=== PATIENT | male | born 1960 | race Caucasian/White ===

== ENCOUNTER 2025-08-10 09:32 | Inpatient (IN) | payer OTHER, SELFPAY ==
--- NOTE | ~2025-08-10 | XR_ITS ---
EXAMINATION: XR CHEST CLINICAL INFORMATION: NGT placement confirmation COMPARISON: None available. TECHNIQUE: Frontal view of the lower chest and upper abdomen.. FINDINGS: NG tube present, with the tip projected in the expected region of the stomach. No abnormal dilated bowel loops identified in the partially imaged abdomen. No gross pneumoperitoneum. Left basilar hazy opacities could reflect atelectasis. XR/XR chest 1V IMPRESSION: NG tube present, tip projected in the expected region of the stomach. Electronically signed by: Bin German MD 08/13/2025 09:31 AM EDT
--- NOTE | ~2025-08-10 | CT_ITS ---
EXAMINATION: CT ABDOMEN PELVIS WITH IV CONTRAST HISTORY: f/u perforated diverticulitis COMPARISON: Comparison is made with the prior examination dated 08/10/2025. TECHNIQUE: CT scan of the abdomen and pelvis was performed following administration of 85 mL Omnipaque 350 using standard departmental protocol. Coronal and sagittal reformatted images were generated and reviewed. Oral contrast material was not administered at the request of the referring physician. This CT exam was performed with one or more of the following dose reduction techniques: automated exposure control, adjustment of the mA and/or kV according to patient size, use of iterative reconstruction technique. DLP: 621 mGy-cm FINDINGS: LOWER CHEST: There is subsegmental atelectasis at both lung bases. There is no pleural effusion. CARDIOVASCULATURE: The heart is normal in size. There is no pericardial effusion. LIVER: The liver is normal in size and contour. No liver mass is identified. The hepatic and portal veins are patent. GALLBLADDER / BILE DUCTS: There is vicarious excretion of contrast material via the gallbladder. There is no intra or extrahepatic biliary ductal dilatation. SPLEEN: The spleen is normal in size. No focal splenic lesion is identified. PANCREAS: The pancreas is unremarkable in appearance. ADRENAL GLANDS: Within normal limits. KIDNEYS/RETROPERITONEUM: No renal calculi are identified. There is no hydronephrosis. No renal masses are identified. LYMPH NODES: No abdominal or pelvic lymphadenopathy. VASCULATURE: The abdominal aorta is normal in caliber. MESENTERY/PERITONEUM: There is a small amount of free fluid in the left paracolic gutter and in the pelvis. Again seen are scattered foci of free intraperitoneal gas in the upper abdomen as well as extraluminal gas in the left lower quadrant. STOMACH: The stomach is unremarkable. SMALL BOWEL: Again seen are numerous dilated fluid-filled loops of proximal and mid small bowel, consistent with obstruction. COLON: Again seen is an inflammatory process in the left lower quadrant adjacent to the descending colon. Findings likely represent perforated diverticulitis. There is a 2.0 x 2.0 x 1.8 cm fluid collection in this region, similar to the prior study (series 3, images 54-57). APPENDIX: Normal. URINARY BLADDER/PELVIC ORGANS: The urinary bladder is unremarkable. The prostate is normal in size. BONES / SOFT TISSUES: No suspicious bony or soft tissue abnormalities. CT/CT abdomen pelvis w IV con IMPRESSION: Again seen are findings of perforated diverticulitis of the descending colon with free intraperitoneal gas. 2.0 cm adjacent fluid collection without significant change. Findings of small bowel obstruction are also unchanged. Electronically signed by: Alden Ibrahim MD 08/11/2025 11:30 AM EDT
--- NOTE | ~2025-08-10 | CT_ITS ---
CLINICAL HISTORY: SBO, diverticulitis, fever CT abdomen and pelvis without IV or oral contrast Comparison: CT/REG/SR - CT ABDOMEN PELVIS WITH IV CONTRAST - 08/11/25 11:[address]/SR - ABDOMEN ABD_PELVIS_IV_CONTRAST (ADULT) - 08/10/25 11:10 EDT Findings: Lung bases show no active disease. No dependent layering pleural effusions. The heart is not enlarged. Enteric tube tip body of stomach No stones are identified in the kidneys, ureters or bladder. There is no hydronephrosis or perinephric stranding/fluid. Evaluation of the liver, spleen, adrenal glands and pancreas demonstrates no lesions. It should be noted that isodense masses may be obscured in the absence of intravenous contrast. Vicarious excretion via of the gallbladder. Normal appendix. No pathologically enlarged lymph nodes . Trace ascites demonstrated. Improved pneumoperitoneum. Inflammatory process descending colon with diverticuli. Extraluminal collection of air and gas left mid abdomen measuring 2.6 cm previously measuring 2 cm possible developing abscess. Minimal improvement in the distal small bowel obstructive pattern. Normal appendix. No vertebral body compression fractures or spondylolisthesis. No bony destructive lesions. Impression: 1. Minimal improvement in the small volume pneumoperitoneum. 2.6 cm probable abscess within the peritoneal cavity left mid abdomen axial image 54. This previously measured 2.[address] oral Gastrografin would be helpful to exclude any fistulous component. There is inflammatory changes of the descending colon with diverticuli consider acute diverticulitis. Minimal improvement in the distal small bowel obstructive pattern. 2. Stable ancillary findings This document has been electronically signed by: Praful Choe MD on 08/16/2025 10:36:39
--- NOTE | ~2025-08-10 | CT_ITS ---
CLINICAL HISTORY: abdo pain, tenderness, high WBC CT abdomen and pelvis with contrast Comparison: None provided Findings: The heart is not enlarged. Mild aortic annular calcifications. Mild calcific atherosclerosis. Lung bases are clear other than subsegmental atelectasis. A left renal inferior pole subcentimeter hypodensity is too small to characterize. The gallbladder and other abdominal solid organs are unremarkable. Duodenal diverticulum. Multiple loops of small bowel are dilated up to 3.1 cm with multiple air-fluid levels. Probable transition point within the left abdomen near axial series 3 image 46 with associated small bowel mural thickening. Within the adjacent left abdomen, there is prominent fat stranding and a small amount of fluid without definite wall to suggest abscess. Scattered foci of pneumoperitoneum throughout the abdomen. The inflammatory changes extend posteriorly to the descending colon, where diverticular disease is present. Normal appendix. Pelvic structures unremarkable. Mild degenerative change of the spine and hips. IMPRESSION: Pneumoperitoneum, compatible with bowel perforation. Small bowel obstruction with probable transition point in the left abdomen where there is prominent inflammatory change and a small amount of free fluid without definite abscess. The inflammatory changes extend posteriorly to the descending colon where diverticular disease is present. This document has been electronically signed by: Geoffrey Shaikh DO on 08/10/2025 12:59:34
[2025-08-10 09:34] VITALS: BP 175/91; PULSE 100; RESP 18; TEMP 36.8; O2SAT 95; BMI 36.5
[2025-08-10 09:49] LABS: MANUAL DIFF FLAG NO
[2025-08-10 09:51] LABS: Hematocrit 51.9 % (42.0-52.0); Hemoglobin 17.4 g/dl (14.0-18.0); Imm Gran Abs Auto 0.09 X10*3/uL (0.00-0.03); Imm Gran Pct Auto 0.5 % (0.0-0.4); Lymphocytes Absolute Auto 1.6 X10*3/uL (1.2-4.9); Mean Corpuscular HGB Conc 33.5 g/dl (31.0-36.0); Mean Corpuscular Hemoglobin 29.7 pg (27.0-33.0); Mean Corpuscular Volume 88.6 fL (80.0-98.0); NRBC Abs Auto 0.000 X10*3/uL (0.0-0.012); NRBC Pct Auto 0.0 /100WBC (0.0-0.2); Red Blood Count 5.86 X10*6/uL (4.60-5.80); White Blood Count 17.1 X10*3/uL (4.8-10.8)
[2025-08-10 10:04] LABS: Alanine Aminotransferase 48 U/L (0-40); Albumin Level 4.3 g/dL (3.5-5.0); Alkaline Phosphatase 85 U/L (39-117); Anion Gap 15 (12-20); Aspartate Amino Transferase 30 U/L (5-37); Blood Urea Nitrogen 56 mg/dL (9-16); Calcium 9.3 mg/dL (8.4-10.2); Carbon Dioxide 23 mmol/L (22-29); Chloride 101 mmol/L (96-108); Creatinine Clr Calc Pharmacy 44.4; Estimated Glomerular Filt Rate 33; Lipase 27 U/L (8-78); Potassium 4.6 mmol/L (3.3-5.1); Sodium 134 mmol/L (135-145); Total Protein 7.8 g/dL (6.5-8.0)
--- NOTE | 2025-08-10 10:09 | ED.GENADULT ---
HPI - General Adult General Chief complaint: Abdominal Pain Stated complaint: abd pain Time Seen by Provider: 08/10/25 10:09 History of Present Illness ED Provider: Addison CARROLL narrative: The patient is a 64-year-old male with a history of the antiphospholipid syndrome on warfarin and who also has a history of a chronic wound on his left calf attributed to pyoderma gangrenosum. He has been having a lot of pain in the wound in his left calf for a long time. He has been using nonsteroidal anti-inflammatories for the pain despite being on warfarin. Over the last 2 days he has had worsening abdominal pain. Pain began yesterday morning across his lower abdomen and has gotten worse since yesterday morning. He feels the pain is moving up his abdomen. The pain does not lateralized. It is associated with nausea but no vomiting. He has not had a bowel movement since the day before his pain began. He thought that perhaps his pain was secondary to constipation and so yesterday he took MiraLax and Senokot and Dulcolax with no bowel movements. Related Data Allergies Allergy/AdvReac Type Severity Reaction Status Date / Time bacitracin Allergy Unknown Verified 08/10/25 09:38 celecoxib (From Celebrex) Allergy Unknown Verified 08/10/25 09:38 cephalexin (From Keflex) Allergy Unknown Verified 08/10/25 09:38 sulfacetamide (From Allergy Unknown Verified 08/10/25 09:38 Sulfamide) sulfamethoxazole (From Allergy Unknown Verified 08/10/25 09:38 Bactrim) trimethoprim (From Bactrim) Allergy Unknown Verified 08/10/25 09:38 Review of Systems Review of Systems: Yes all other systems are reviewed and are negative [facility] Past Medical History Medical History (Updated 08/10/25 @ 14:35 by Gallito Razo MD) Antiphospholipid syndrome Pyoderma gangrenosum Social History Social History Advance Directives: No Advance Directives Information Provided: Yes Do you have a plan to hurt others: No Plan Physical Exam ED Vital Signs: Vital Signs - 24 hr 08/10/25 09:34 08/10/25 11:50 08/10/25 14:00 Temperature 98.3 F 98.3 F 98.9 F Pulse Rate 100 88 87 Respiratory Rate 18 Blood Pressure 175/91 H 133/70 125/72 Pulse Oximetry 95 96 98 Oxygen Delivery Method Room Air Room Air BMI result Body Mass Index 36.5 Const Other: The patient is a 62-year-old male who was awake and alert, pleasant cooperative. He does not appear overtly uncomfortable or toxic. Orientation/consciousness: patient oriented x3 HENMT Other: The face is symmetrical. ?Mucous membranes moist. Eyes Other: Pupils are round equal, conjunctivae are clear, extraocular movements intact Neck Neck: Yes normal visual inspection, Yes full ROM and Yes no JVD Resp Effort & Inspection: normal respiratory effort Auscultation: clear to auscultation bilaterally Cardio Rate: regular rate Rhythm: regular rhythm Heart sounds: S1 normal heart sound present and S2 normal heart sound present GI Other: The patient has generalized abdominal tenderness. Skin Other: The skin is dry and unremarkable Neuro General: patient oriented x3, tone normal, moves all extremities, no focal motor deficits and CN's II-XI intact bilaterally Extrem Other: The patient has his left lower leg wrapped with a Coban wrap. There is no peripheral edema. Medications Administered Generic Name Dose Route Start Last Admin Trade Name Freq PRN Reason Stop Dose Admin Heparin Sodium (Porcine) 5,000 unit 08/10/25 14:15 08/10/25 14:55 Heparin Sodium,Porcine 5,000 Unit/Ml Vial SUBCUT 5,000 unit Q12H JONATHAN Administration Hydromorphone HCl 0.5 mg 08/10/25 14:15 08/10/25 14:57 Hydromorphone Hcl 0.5 Mg/0.5 Ml Syringe IVPUSH 0.5 mg Q3H PRN Administration Pain, Severe (Pain Scale 7-10) Protocol Dextrose/Lactated Ringer's 1,000 mls @ 125 mls/hr 08/10/25 14:15 08/10/25 14:57 D5lr IVCONT 125 mls/hr .Q8H JONATHAN Administration Ondansetron HCl 4 mg 08/10/25 14:15 08/10/25 14:59 Ondansetron Hcl 4 Mg/2 Ml Vial IVPUSH 4 mg QID PRN Administration Nausea Discontinued Medications Generic Name Dose Route Start Last Admin Trade Name Freq PRN Reason Stop Dose Admin Ceftriaxone Sodium 2 gm 08/10/25 11:56 08/10/25 12:12 Ceftriaxone Sodium 2 Gm Vial IVPUSH 08/10/25 11:57 2 gm ONCE ONE Administration Hydromorphone HCl 1 mg 08/10/25 11:52 08/10/25 11:57 Hydromorphone Hcl 1 Mg/Ml Syringe IVPUSH 08/10/25 11:53 1 mg ONCE ONE Administration Protocol Sodium Chloride 1,000 mls @ 999 mls/hr 08/10/25 12:00 08/10/25 13:08 Ns IV 08/10/25 13:00 Infused .Q1H1M JONATHAN Infusion Metronidazole 500 mg in 100 mls @ 100 mls/hr 08/10/25 11:56 08/10/25 13:08 Flagyl IV 08/10/25 12:55 Infused ONCE ONE Infusion Iohexol 85 ml 08/10/25 11:14 08/10/25 11:15 Iohexol 350 Mg/Ml 75 Ml Infus..Btl IV 08/10/25 11:15 85 ml ONCE ONE Administration Morphine Sulfate 4 mg 08/10/25 10:47 08/10/25 11:18 Morphine Sulfate 4 Mg/Ml Cartridge IVPUSH 08/10/25 10:48 4 mg ONCE ONE Administration Protocol Ondansetron HCl 4 mg 08/10/25 10:47 08/10/25 11:18 Ondansetron Hcl 4 Mg/2 Ml Vial IVPUSH 08/10/25 10:48 4 mg ONCE ONE Administration Medical Decision Making Medical Decision Making [facility] Narrative: The patient is a 64-year-old male with a history of the antiphospholipid syndrome who was maintained on warfarin and who also has a history of a chronic wound on his left calf which has recently been determined to be a case of pyoderma gangrenosum. He presents with less than 48 hours of abdominal pain. His CT scan shows a fair amount of pneumoperitoneum which is not well loculated. He has in his left lower quadrant and area of significant inflammatory changes which may be secondary to diverticulitis. There are also findings of a possible small bowel obstruction. The patient's white count was 17.1. Given that I felt he would need to be hospitalized blood cultures and a lactate were obtained and he was started on 2 g of ceftriaxone and [address] Razo of General surgery was consulted. He came to see the patient. He will be admitting the patient to his service. Lab Data 08/10/25 09:46 08/10/25 09:46 Labs: Lab Results 08/10/25 08/10/25 08/10/25 Range/Units 09:46 11:00 12:05 WBC 17.1 H (4.8-10.8) X10*3/uL RBC 5.86 H (4.60-5.80) X10*6/uL Hgb 17.4 (14.0-18.0) g/dl Hct 51.9 (42.0-52.0) % MCV 88.6 (80.0-98.0) fL MCH 29.7 (27.0-33.0) pg MCHC 33.5 (31.0-36.0) g/dl RDW 15.2 (11.0-16.0) % Plt Count 76 L (160-400) X10*3/uL MPV 9.9 (9.4-12.4) fL Immature Gran % (Auto) 0.5 H (0.0-0.4) % Neut % (Auto) 85.3 H (45-73) % Lymph % (Auto) 9.2 L (20-40) % [place]rentiss % (Auto) 4.7 (2-11) % Eos % (Auto) 0.1 (0-4) % Baso % (Auto) 0.2 (0-2) % Lymph # (Auto) 1.6 (1.2-4.9) X10*3/uL Prentiss # (Auto) 0.8 (0.1-1.2) X10*3/uL Eos # (Auto) 0.0 (0.0-0.4) X10*3/uL Baso # (Auto) 0.0 (0.0-0.2) X10*3/uL Abs Immat Gran (auto) 0.09 H (0.00-0.03) X10*3/uL Absolute Neuts (auto) 14.6 H (2.0-8.3) x10*3/uL Absolute Nucleated RBC 0.000 (0.0-0.012) X10*3/uL Nucleated RBC % (auto) 0.0 (0.0-0.2) /100WBC PT 41.7 H (10.9-12.4) SEC INR 3.6 H (0.9-1.1) Sodium 134 L (135-145) mmol/L Potassium 4.6 (3.3-5.1) mmol/L Chloride 101 (96-108) mmol/L Carbon Dioxide 23 (22-29) mmol/L Anion Gap 15 (12-20) BUN 56 H (9-16) mg/dL Creatinine 2.06 H (0.5-1.4) mg/dL Estim Creat Clear Calc 44.4 Estimated GFR 33 Random Glucose 129 H (60-115) mg/dL Lactic Acid 0.7 (0.5-2.0) mmol/L Calcium 9.3 (8.4-10.2) mg/dL Total Bilirubin 1.8 H (0.0-1.0) mg/dL AST 30 (5-37) U/L ALT 48 H (0-40) U/L Alkaline Phosphatase 85 (39-117) U/L Total Protein 7.8 (6.5-8.0) g/dL Albumin 4.3 (3.5-5.0) g/dL Lipase 27 (8-78) U/L Urine Color Urine Appearance Urine pH (5.0-9.0) Ur Specific [place] (1.005-1.025) Urine Protein (Neg-Trace) mg/dL Urine Glucose (UA) (Negative) mg/dL Urine Ketones (Negative) mg/dL Urine Blood (Negative) Urine Nitrite (Negative) Ur Leukocyte Esterase (Negative) Urine RBC (0-2) /HPF Urine WBC (0-5) /HPF Ur Squamous Epith Cells (0-2) /HPF Urine Bacteria (None Seen) Hyaline Casts (0-2) /LPF 08/10/25 Range/Units 13:29 WBC (4.8-10.8) X10*3/uL RBC (4.60-5.80) X10*6/uL Hgb (14.0-18.0) g/dl Hct (42.0-52.0) % MCV (80.0-98.0) fL MCH (27.0-33.0) pg MCHC (31.0-36.0) g/dl RDW (11.0-16.0) % Plt Count (160-400) X10*3/uL MPV (9.4-12.4) fL Immature Gran % (Auto) (0.0-0.4) % Neut % (Auto) (45-73) % Lymph % (Auto) (20-40) % [place]rentiss % (Auto) (2-11) % Eos % (Auto) (0-4) % Baso % (Auto) (0-2) % Lymph # (Auto) (1.2-4.9) X10*3/uL [place]rentiss # (Auto) (0.1-1.2) X10*3/uL Eos # (Auto) (0.0-0.4) X10*3/uL Baso # (Auto) (0.0-0.2) X10*3/uL Abs Immat Gran (auto) (0.00-0.03) X10*3/uL Absolute Neuts (auto) (2.0-8.3) x10*3/uL Absolute Nucleated RBC (0.0-0.012) X10*3/uL Nucleated RBC % (auto) (0.0-0.2) /100WBC PT (10.9-12.4) SEC INR (0.9-1.1) Sodium (135-145) mmol/L Potassium (3.3-5.1) mmol/L Chloride (96-108) mmol/L Carbon Dioxide (22-29) mmol/L Anion Gap (12-20) BUN (9-16) mg/dL Creatinine (0.5-1.4) mg/dL Estim Creat Clear Calc Estimated GFR Random Glucose (60-115) mg/dL Lactic Acid (0.5-2.0) mmol/L Calcium (8.4-10.2) mg/dL Total Bilirubin (0.0-1.0) mg/dL AST (5-37) U/L ALT (0-40) U/L Alkaline Phosphatase (39-117) U/L Total Protein (6.5-8.0) g/dL Albumin (3.5-5.0) g/dL Lipase (8-78) U/L Urine Color Yellow Urine Appearance Clear Urine pH 5.5 (5.0-9.0) Ur Specific [place] >= 1.030 H (1.005-1.025) Urine Protein 30 (1+) H (Neg-Trace) mg/dL Urine Glucose (UA) 100 H (Negative) mg/dL Urine Ketones Negative (Negative) mg/dL Urine Blood Negative (Negative) Urine Nitrite Negative (Negative) Ur Leukocyte Esterase Negative (Negative) Urine RBC 0-2 (0-2) /HPF Urine WBC 0-5 (0-5) /HPF Ur Squamous Epith Cells 0-2 (0-2) /HPF Urine Bacteria None Seen (None Seen) Hyaline Casts 0-2 (0-2) /LPF Independent Interpretation I performed an independent interpretation of an: EKG Interpretation: EKG at 10:14 shows normal sinus rhythm at 99 beats per minute. It is a normal EKG. No old EKGs for comparison. Discharge Plan Discharge Clinical Impression: Abdominal pain, Pneumoperitoneum Patient Disposition: Admitted As Inpatient
--- NOTE | 2025-08-10 10:12 | ECG_ITS ---
Test Reason : epigastric pain Blood Pressure : */* mmHG Vent. Rate : 99 BPM Atrial Rate : 99 BPM P-R Int : 158 ms QRS Dur : 94 ms QT Int : 324 ms P-R-T Axes : 28 69 4 degrees QTcB Int : 415 ms Normal sinus rhythm Normal ECG No previous ECGs available Referred By: Ander Jaime Electronically Signed By: Kulwinder Stephen
[2025-08-10 10:27] LABS: Platelet Count 76 X10*3/uL (160-400)
--- OUTSIDE RECORDS SUMMARY | 2025-08-10 10:38 | XMS_ITS | Encounter Summary ---
Author Organization [facility] Address [address] [facility] [address] [place] [address] Phone Care Team Providers Care Insurance Salesperson Name Role Phone Jeremías Knox MD Primary Care Provid er Jeremías Knox MD Primary Care Provid er Angel Doty MBBS Unavailable [phone] Encounter Details Date Type Department Care Team (Late st Contact Info) Description 03/02/2022 Procedure Pass [facility] Endoscopy Admitting Dept Virtual Department [address] [place] [address] Social History Tobacco Use Types Packs/Day Years Used Date Smoking Tobacco: Never Smokeless Tobacco: Never Alcohol Use Standard Drinks/Week Comments Yes 0 (1 standard drink = 0.6 oz pur e alcohol) socially; occ wine with dinner Sex and Gender Information Value Date Recorded Sex Assigned at Male 01/09/2022 8:52 AM EDT Legal Sex Male 4:23 PM EST Gender Identity Male 01/09/2022 8:52 AM EDT Sexual Orientation Straight 01/09/2022 8: 52 AM EDT documented as of this encounter Plan of Treatment Not on file documented as of this encounter Visit Diagnoses Not on filedocumented in this encounter Care Teams Insurance Salesperson Relationship Specialty Start Date End Date Jeremías Knox MD [address] [facility] [address] [place] [address] PCP - General Pediatrics 08/29/17 05/08/22 Jeremías Knox MD [address] [phone] PCP - General Pediatrics 05/09/22 Angel Doty MBBS [address] [phone] [email or web address] Medical Oncology 02/27/24 documented as of this encounter Additional Source Comments The information contained in this document represents components of the legal health record. It is not the complete legal health record.[facility]
--- OUTSIDE RECORDS SUMMARY | 2025-08-10 10:39 | XMS_ITS | Encounter Summary ---
Author Organization [facility] Address [address] [facility] [address] [place] [address] Phone Care Team Providers Care Graphic Pre Press Trades Worker Name Role Phone Jeremías Knox MD Primary Care Provid er Jeremías Knox MD Primary Care Provid er Angel Doty [facility] Unavailable [phone] Encounter Details Date Type Department Care Team (Latest Contact Info) Description 09/27/2017 Transcribe Orders [facility] [address] [place] [address] Jeremías Knox MD [address] [facility] [address] [place] [address] Deep phlebothrombosis, antepartum, with delivery (Primary Dx) Social History Tobacco Use Types Packs/Day Years Used Date Smoking Tobacco: Never Assessed Sex and Gender Information Value Date Recorded Sex Assigned at Male 01/09/2022 8:52 AM EDT Legal Sex Male 4:23 PM EST Gender Identity Male 01/09/2022 8:52 AM EDT Sexual Orientation Straight 01/09/2022 8: 52 AM EDT documented as of this encounter Plan of Treatment Not on file documented as of this encounter Results * (ABNORMAL) PT-INR (09/27/2017 9:43 AM EST) PT 26.1(H) 10.2 - 12.9 sec [facility] INR 2.3(H) 0.9 - 1.1 [facility] Comment:Therapeutic range fo r oral Vitamin K antagonists: 2.0-3.5 Blood 09/27/2017 9:43 AM EST 09/27/2017 9:48 AM EST Jreemías Knox MD LAB BLOOD ORDERABLES Final Result [facility] [address] [place] [address] documented in this encounter Visit Diagnoses Diagnosis Deep phlebothrombosis, antepartum, with delivery- Primary documented in this encounter Additional Health Concerns Infection Onset Date Last Indicated Resolved Time CoV-Exposed Comment:Recent close contact 05/27/2020 05/27/2020 06/10/2020 1:27 AM EDT documented as of this encounter Care Teams Graphic Pre Press Trades Worker Relationship Specialty Start Date End Date Jeremías Knox MD [address] [phone] PCP - General Pediatrics 08/29/17 05/08/22 Jeremías Knox MD [address] [place] [phone] PCP - General Pediatrics 05/09/22 Angel Doty MBBS [address] [place] [phone] [email or web address] Medical Oncology 02/27/24 documented as of this encounter Additional Source Comments The information contained in this document represents components of the legal health record. It is not the complete legal health record.[facility]
--- OUTSIDE RECORDS SUMMARY | 2025-08-10 10:39 | XMS_ITS | Encounter Summary ---
Author Organization [facility] Address [address] [facility] [address] [place] [address] Phone Care Team Providers Care Attorney Lawyer Name Role Phone Jeremías Knox MD Primary Care Provid er Angel Doty MBBS Unavailable Encounter Details Date Type Department Care Team (Late st Contact Info) Description 07/12/2023 Procedure Pass [facility], Ct Scan - [address] [address] Social History Tobacco Use Types Packs/Day Years Used Date Smoking Tobacco: Never Smokeless Tobacco: Never Alcohol Use Standard Drinks/Week Comments Yes 0 (1 standard drink = 0.6 oz pur e alcohol) socially; occ wine with dinner Education Answer Date Recorded Are you interested in more education? Not on kevan e 02/23/2023 Are you concerned about learning? Not on file 02/23/2023 No 02/23/2023 No 02/23/2023 Digital Access Answer Date Recorded No 03/21/2023 No 03/21/2023 Reliable internet access at home? Not on file 03/21/2023 Device with a working camera? Not on file Intimate Partner Violence Answer Date R ecorded Are you denied basic needs s uch as food, clothing, or medical care? No 07/12/2023 In the past 12 months have y ou been in a relationship with a person who hurts, threatens, or tries to control you? No 07/12/2023 Are you denied basic needs s uch as food, clothing, or medical care? No 07/12/2023 In the past 12 months have y ou been in a relationship with a person who hurts, threatens, or tries to control you? No 07/12/2023 Sex and Gender Information Value Date Recorded Sex Assigned at Male 01/09/2022 8:52 AM EDT Legal Sex Male 4:23 PM EST Gender Identity Male 01/09/2022 8:52 AM EDT Sexual Orientation Straight 01/09/2022 8: 52 AM EDT documented as of this encounter Functional Status * Calculated C-SSRS Risk Score (Lifetime/Recent) Answer Date of Assessment Author No Risk Indicated 07/12/2023 3:04 PM EDT Analy Barksdale RN * [place] Suicide Severity Rating Scale (Screener/Recent Self-Report) Question Answer Date of Assessment Author 1. Wish to be (Past 1 Month) No 07/12/2023 3:04 PM EDT Analy Barksdale RN 2. Non-Specific Active Suici deshawn Thoughts (Past 1 Month) No 07/12/2023 3:04 PM EDT Isis Barksdale RN 6. Suicidal Behavior (Lifetime) No 3:04 PM EDT Analy Barksdale RN documented as of this encounter Plan of Treatment Not on file documented as of this encounter Visit Diagnoses Not on filedocumented in this encounter Care Teams Attorney Lawyer Relationship Specialty Start Date End Date Jeremías Knox MD [address] [place] [phone] PCP - General Pediatrics 05/09/22 Angel Doty MBBS [address] [place] [phone] [email or web address] Medical Oncology 02/27/24 documented as of this encounter Additional Source Comments The information contained in this document represents components of the legal health record. It is not the complete legal health record.[facility]
--- OUTSIDE RECORDS SUMMARY | 2025-08-10 10:39 | XMS_ITS | Encounter Summary ---
Author Organization [facility] Address [address] [facility] [address] [place] [address] Phone Care Team Providers Care Cnc Service Technician Name Role Phone Jeremías Knox MD Primary Care Provid er Angel Doty MBBS Unavailable [phone] Reason for Referral * MRI/CAT Scan - Closed Specialty Diagnoses / Procedures Referred By Contreji ramesh Referred To Contact Radiology Diagnoses Benign neoplasm of cerebral meninges Procedures MRI Brain CHG MRI BRAIN COMBO System, Provider Not In, [facility] [address] [address] Referral ID Status Reason Start Date Expiration Date Visits Re quested Visits Authorized [id number] Closed 08/20/2024 10/18/2024 1 1 Encounter Details Date Type Department Care Team (Late st Contact Info) Description 08/20/2024 Transcribe Orders Virtual Department [address] [place] [address] System, Provider Not In, [facility] [address] [address] Benign neoplasm of cerebral meninges (Primary Dx) Social History Tobacco Use Types [...] documented as of this encounter Results * MRI BRAIN WITH AND WITHOUT CONTRAST (09/27/2024 9:04 AM EST) Anatomical Region Laterality Modality Head Magnetic Resonan ce 09/29/2024 4:38 PM EST Impressions 09/29/2024 4:48 PM EST 1. No significant interval change in size of a 1.1 cm extra-axial homogeneously enhancing dural based mass along the left frontal lobe, likely representing a meningioma. 2. No acute intracranial abnormality. Narrative 09/29/2024 4:48 PM EST MRI BRAIN WITH AND WITHOUT CONTRAST Referring clinician's provided indication for this examination in Epic: Outside Radiology Order; benign cerebral meninges TECHNIQUE: MRI BRAIN WITH AND WITHOUT CONTRAST Multi-sequence, multi-planar MRI of the brain was performed before and after intravenous contrast. COMPARISON: MRI BRAIN WITH AND WITHOUT CONTRAST ; MRI BRAIN WITH AND WITHOUT CONTRAST FINDINGS: Brain Parenchyma: No evidence of acute infarct, mass, hemorrhage or abnormal enhancement. There are scattered foci of T2 hyperintensity in the white matter, likely a manifestation of chronic small vessel disease. Ventricular System and Extra-Axial Spaces: There is a 1.1 x 0.7 x 0.9 cm extra- axial homogeneously enhancing dural based mass along the left frontal lobe, not significantly changed in size compared to prior study, previously measured 1.1 x 0.7 x 0.8 cm. No new or enlarging extra-axial lesions are identified. The ventricles and cortical sulci are prominent, as commonly seen in patients of this age. No evidence of midline shift or hydrocephalus. Extracranial Structures: There are normal flow voids of the major intracranial vessels. There is mild mucosal thickening in the visualized paranasal sinuses. The mastoid air cells appear clear. The orbits and soft tissues are unremarkable. Procedure Note Hernandez Cotto MD - 09/29/2024 MRI BRAIN WITH AND WITHOUT CONTRAST Referring clinician's provided indication for this examination in Epic:Outside Radiology Order; benign cerebral meninges TECHNIQUE: MRI BRAIN WITH AND WITHOUT CONTRAST Multi-sequence, multi-planar MRI of the brain was performed before andafter intravenous contrast. COMPARISON: MRI BRAIN WITH AND WITHOUT CONTRAST ; MRI BRAINWITH AND WITHOUT CONTRAST FINDINGS: Brain Parenchyma: No evidence of acute infarct, mass, hemorrhage orabnormal enhancement. There are scattered foci of T2 hyperintensity in thewhite matter, likely a manifestation of chronic small vessel disease. Ventricular System and Extra-Axial Spaces: There is a 1.1 x 0.7 x 0.9 cmextra- axial homogeneously enhancing dural based mass along the leftfrontal lobe, not significantly changed in size compared to prior study,previously measured 1.1 x 0.7 x 0.8 cm. No new or enlarging extra-axiallesions are identified. The ventricles and cortical sulci are prominent,as commonly seen in patients of this age. No evidence of midline shift orhydrocephalus. Extracranial Structures: There are normal flow voids of the majorintracranial vessels. There is mild mucosal thickening in the visualizedparanasal sinuses. The mastoid air cells appear clear. The orbits andsoft tissues are unremarkable. IMPRESSION: 1. No significant interval change in size of a 1.1 cm extra-axialhomogeneously enhancing dural based mass along the left frontal lobe,likely representing a meningioma. 2. No acute intracranial abnormality. us Provider Not In System PhD IMG MR HEAD/NECK Mandy l Result documented in this encounter Visit Diagnoses Diagnosis Benign neoplasm of cerebral meninges- Primary Benign neoplasm of cerebral meninges documented in this encounter Care Teams Cnc Service Technician Relationship Specialty Start Date End Date Jeremías Knox MD [address] [place] [phone] PCP - General Pediatrics 05/09/22 Angel Doty MBBS [address] [place] [phone] [email or web address] Medical Oncology 02/27/24 documented as of this encounter Additional Source Comments The information contained in this document represents components of the legal health record. It is not the complete legal health record.[facility]
--- OUTSIDE RECORDS SUMMARY | 2025-08-10 10:39 | XMS_ITS | Encounter Summary ---
Author Organization [facility] Address [address] [facility] [facility] [place] [id number] Phone Care Team Providers Care Forming Machine Adjuster Name Role Phone Jeremías Knox MD Primary Care Provid er Jeremías Knox MD Primary Care Provid er Angel Doty [facility] [place]available [phone] Reason for Referral * MRI/CAT Scan - Closed Specialty Diagnoses / Procedures Referred By Emeka ramesh Referred To Contact Radiology Diagnoses Visual hallucinations Procedures CT Head CHG CT SCAN HEAD COMBO Alden Segundo DO Phone: tel: fax: [email or web address] Referral ID Status Reason Start Date Expiration Date Visits Re quested Visits Authorized [id number] Closed 12/29/2021 06/11/2022 1 1 Encounter Details Date Type Department Care Team (Latest Contact Info) Description 12/29/2021 Transcribe Orders Virtual Department [address] [place] [id number] Alden Segundo DO [address] [place] [address] [email or web address] Visual hallucinations (Primary Dx) Social History Tobacco Use Types Packs/Day Years Used Date Smoking Tobacco: Never Smokeless Tobacco: Never Alcohol Use Standard Drinks/Week Comments Yes 0 (1 standard drink = 0.6 oz pur e alcohol) Sex and Gender Information Value Date Recorded Sex Assigned at Male 01/09/2022 8:52 AM EDT Legal Sex Male 4:23 PM EST Gender Identity Male 01/09/2022 8:52 AM EDT Sexual Orientation Straight 01/09/2022 8: 52 AM EDT documented as of this encounter Plan of Treatment Not on file documented as of this encounter Results * CT HEAD WITH AND WITHOUT CONTRAST (01/12/2022 4:22 PM EDT) Anatomical Region Laterality Modality Head Computed Tomogra phy 01/12/2022 6:25 PM EDT Impressions 01/12/2022 6:38 PM EDT 1.No intraparenchymal mass, hemorrhage, or evidence of acute territorial infarction or hydrocephalus. 2.Partially calcified 8 mm dural based lesion along the left frontal convexity, favored to represent an incidental meningioma. Narrative 01/12/2022 6:[address] HEAD WITH AND WITHOUT CONTRAST TECHNIQUE: Multidetector-row CT of the head was performed before and after administration of intravenous contrast using tailored dose modulation techniques. Images were reconstructed in the axial, coronal, and sagittal planes. COMPARISON: None available FINDINGS: Brain Parenchyma: No midline shift, parenchymal hemorrhage, or evidence of acute territorial infarct. No enhancing parenchymal abnormality. Ventricular System and Extra-Axial Spaces: There is a partially calcified dural based mass overlying the left frontal convexity measuring 8 x 6 mm with. The lesion mildly displaces the underlying left middle frontal gyrus. No extra-axial fluid collections. No hydrocephalus. Osseous and Extracranial Structures: The paranasal sinuses and mastoids are clear. There is degenerative remodeling of the left temporomandibular joint. The calvarium is intact. Procedure Note Rishi Pena MD - 01/12/2022 CT HEAD WITH AND WITHOUT CONTRAST TECHNIQUE: Multidetector-row CT of the head was performed before and afteradministration of intravenous contrast using tailored dose modulationtechniques. Images were reconstructed in the axial, coronal, and sagittalplanes. COMPARISON: None available FINDINGS: Brain Parenchyma: No midline shift, parenchymal hemorrhage, or evidence ofacute territorial infarct. No enhancing parenchymal abnormality. Ventricular System and Extra-Axial Spaces: There is a partially calcifieddural based mass overlying the left frontal convexity measuring 8 x 6 mmwith. The lesion mildly displaces the underlying left middle frontalgyrus. No extra-axial fluid collections. No hydrocephalus. Osseous and Extracranial Structures: The paranasal sinuses and mastoidsare clear. There is degenerative remodeling of the left temporomandibularjoint. The calvarium is intact. IMPRESSION: 1.No intraparenchymal mass, hemorrhage, or evidence of acute territorialinfarction or hydrocephalus. 2.Partially calcified 8 mm dural based lesion along the left frontalconvexity, favored to represent an incidental meningioma. Alden Segundo DO IMG CT HEAD/NECK Final Result documented in this encounter Visit Diagnoses Diagnosis Visual hallucinations- Primary Psychophysical visual disturbances Visual hallucinations Psychophysical visual disturbances documented in this encounter Care Teams Forming Machine Adjuster Relationship Specialty Start Date End Date Jeremías Knox MD [address] [place] [phone] PCP - General Pediatrics 08/29/17 05/08/22 Jeremías Knox MD [address] [place] [phone] PCP - General Pediatrics 05/09/22 Angel Doty MBBS [address] [place] [phone] [email or web address] Medical Oncology 02/27/24 documented as of this encounter Additional Source Comments The information contained in this document represents components of the legal health record. It is not the complete legal health record.[facility]
--- OUTSIDE RECORDS SUMMARY | 2025-08-10 10:39 | XMS_ITS | Encounter Summary ---
Author Organization [facility] Address [address] [facility] [address] [place] [phone] Phone Care Team Providers Care Public Health Aides Teacher Name Role Phone Jeremías Knox MD Primary Care Provid er Jeremías Knox MD Primary Care Provid er Angel Doty MBBS Unavailable [phone] Encounter Details Date Type Department Care Team (Late st Contact Info) Description 05/03/2022 Procedure Pass [facility], [address] [address] Social History Tobacco Use Types Packs/Day Years [...] on filedocumented in this encounter Care Teams Public Health Aides Teacher Relationship Specialty Start Date End Date Jeremías Knox MD [address] [facility] [address] [place] [phone] PCP - General Pediatrics 08/29/17 05/08/22 Jreemías Knox MD [address] [phone] PCP - General Pediatrics 05/09/22 Angel Doty MBBS [address] [phone] [email or web address] Medical Oncology 02/27/24 documented as of this encounter Additional Source Comments The information contained in this document represents components of the legal health record. It is not the complete legal health record.[facility]
--- OUTSIDE RECORDS SUMMARY | 2025-08-10 10:39 | XMS_ITS | Clinical Summary ---
Author Organization [facility] Address [address] [facility] [address] [place] [phone] Phone Care Team Providers Care Stock Controller Name Role Phone Jeremías Knox MD Primary Care Provid er Angel Doty MBBS Unavailable [phone] Allergies Active Allergy Reactions Criticality Noted Date Comments Adhesive Tape-Silicones Rash High 11/10/2022 Bacitracin Rash High 11/10/2022 Celecoxib 06/03/2024 Cephalexin Rash Low 10/10/2022 Kiwi 06/03/2024 Oxycodone-Acetaminophen GI Upset 11/28/2016 Sulfa (Sulfonamide Antibiotics) 05/01/2022 Sulfamethoxazole-Trimethoprim Swelling 2016 Medications fluticasone propionate (FLONASE) 50 mcg/actuation nasal spray 1 spray in each nostril Nasally Once a day Active cetirizine (ZYRTEC) 10 MG tablet Take 1 tablet by mouth daily. Active diclofenac sodium (VOLTAREN) 1 % Gel 4g to affected area Transdermal Twice a day 7 Active TURMERIC-HERBAL COMPLEX NO.278 ORAL Take 1 capsule by mouth daily. Active BIOFLAVONOIDS ORAL Take 2 capsules by mouth daily. Active warfarin (COUMADIN) 5 MG tablet Take 5 mg by mouth daily. Maintenance plan:10 mg every Mon, Wed, Fri; 5 mg all other days Active cholecalciferol (VITAMIN D3) 5,000 unit capsule Take 5,000 Units by mouth daily. Active traZODone (DESYREL) 50 MG tablet Take 50 mg by mouth nightly at bedtime. Active omeprazole (PRILOSEC) 20 MG tablet Take 20 mg by mouth daily. On sat, sun, tue, thur Active furosemide (LASIX) 20 MG tablet Take 20 mg by mouth. 20mg daily Active losartan (COZAAR) 100 MG tablet Take 1 tablet by mouth every morning. Active Active Problems Problem Noted Date Diagnosed Date Antiphospholipid syndrome 07/12/2023 Assessment & Plan (06/25/2024 9:41 AM EDT): IMPRESSION: This is a 63-year-old man with the following diagnosis: Antiphospholipid antibody syndrome, triple positive disease Left lower extremity DVT, unprovoked Bilateral lower extremity edema and chronic venous stasis changes/chronic intermittent nonhealing ulcers DISCUSSION: I discussed overall impression, differential diagnosis and further evaluation in this regard. His repeat labs have confirmed triple positive antiphospholipid antibody syndrome which is associated with significantly high risk for both venous and arterial thrombosis. Current guidelines recommend lifelong anticoagulation in this scenario. Since he has triple positive antiphospholipid antibody syndrome, according to current guidelines Coumadin/warfarin is the best option in this setting and DOACs may not be as effective. The etiology of bilateral lower extremity nonhealing ulcers and chronic venous stasis changes is not entirely clear at this time. Patient has undergone evaluation by vascular and dermatology as well as venous and arterial scans which as per patient were unremarkable. I do not have any official reports available to me at this time. Patient is going to get those records and will bring to my office. He also underwent biopsy by dermatology and will get the report of that as well. The only other possibility is some sort of vasculitis and I recommended evaluation by rheumatology. If we do not find any other etiology for this, then would be reasonable to add a baby aspirin with Coumadin. RECOMMENDATIONS: Patient is a candidate for lifelong anticoagulation Patient to continue Coumadin/warfarin with target INR between 2 and 3 Patient is going to get all his records from vascular and dermatology office for us Referred to rheumatology Follow-up in 4 to 6 weeks Thank you very much for allowing to participate in this patient's care Assessment & Plan (06/03/2024 9:59 PM EDT): IMPRESSION: This is a 63-year-old man with history of left lower extremity DVT, unprovoked in the setting of antiphospholipid antibody syndrome. Bilateral lower extremity edema and chronic venous stasis changes/chronic intermittent nonhealing ulcers likely unrelated to Coumadin although antiphospholipid antibody syndrome can cause some cutaneous manifestations. DISCUSSION: I discussed all impression, differential diagnosis and further evaluation in this regard. I recommended to repeat the testing for antiphospholipid antibody syndrome and to evaluate for any other underlying hypercoagulable condition. Current guidelines do recommend lifelong anticoagulation in patients with history of DVT in the setting of antiphospholipid antibody syndrome. This syndrome is associated with significantly high risk of both venous and arterial thrombosis. For most individuals with APS, current guidelines suggest anticoagulation with warfarin rather than a DOAC. However, a DOAC may be reasonable in selected cases of APS, particularly for patients with lower-risk features such as a single venous thromboembolism (VTE) and single positive aPL test, or those who cannot tolerate warfarin. The individual should be made aware of the available available evidence and possible reduced efficacy of DOACs relative to warfarin for APS. I recommended to repeat the testing and then we will decide about switching to a different anticoagulant agent. RECOMMENDATIONS: Patient is a candidate for lifelong anticoagulation Hypercoagulable screen including antiphospholipid antibody syndrome testing Continue Coumadin at this time Follow-up in 2 to 3 weeks Thank you very much for allowing to participate in this patient's care Assessment & Plan (07/12/2023 7:58 PM EDT): - Continue Coumadin dosing, INR is slightly subtherapeutic today at 1.8 GALEN (acute kidney injury) 07/12/2023 Assessment & Plan (07/12/2023 7:58 PM EDT): -Patient reports that his Lasix dose was increased from 20 to 40 two days ago and he was also started on Celebrex -Hold Lasix, Celebrex, and Cozaar for now Elevated LFTs 07/12/2023 Assessment & Plan (07/12/2023 7:57 PM EDT): -Mildly elevated LFTs, repeat in am, further work up if trending up Acute venous embolism and th rombosis of deep vessels of proximal lower extremity [I82.4Y9] 08/19/2017 Chronic anticoagulation 08/19/2017 Resolved Problems Problem Noted Date Diagnosed Date Resolved Date Transient global amnesia 07/12/2023 Assessment & Plan (07/12/2023 8:00 PM EDT): -Patient presented with an episode of confusion that started pretty abruptly and lasted for several hours -CT head and CTA head and neck showed no acute pathology -Follow up MRI brain -Will discuss with tele neuro once imaging results available -Monitor on tele -Follow up HbA1c, TSH, ESR, CRP, lipid panel -Start high-dose statin, monitor LFTs -He is already on Coumadin, hold off on aspirin Encounters Date Type Department Care Team Description 07/15/2025 9:25 AM EDT - 07/15/2025 11:59 PM EDT Hospital Encounter [facility] Laboratory [address] [place] [phone] Jeremías Knox MD Discharge Disposition: Home or Self Care 07/15/2025 Documentation [facility] Anti Coag Clinic [address] [place] [address] [place] [address] Kaylene Gutierres, RN INR Check 07/13/2025 Documentation [facility] [address] [place] [phone] Kaylene Gutierres, RN 06/24/2025 Telephone [facility] Rheumatology [address] [place] [address] Roxana Gold MD, MPH Appointment 06/08/2025 8:43 AM EDT - 06/08/2025 11:59 PM EDT Hospital Encounter [facility] [address] [place] [address] Jeremías Knox MD Discharge Disposition: Home or Self Care 06/08/2025 Documentation [facility] [address] [place] [phone] Kaylene Gutierres, RN INR Check 06/05/2025 Documentation Anticoagulation Clinic [address] [place] [phone] Kaylene Gutierres RN 06/05/2025 Documentation [facility]tico[facility] Clinic [address] [place] [phone] Kaylene Gutierres RN 05/18/2025 Orders Only [facility] at [address] [address] Deonna Smith CNP from Last 3 Months Immunizations Immunization Administration Dates Next Due COVID-19 (Pre-08/20) Pfizer Vaccine, mRNA, PF ,10/18/2020 Influenza Quadrivalent Preservative Free IM 06/30,09/01/2016 Social History Tobacco Use Types Packs/Day Years Used Date Smoking Tobacco: Never Smokeless Tobacco: Never Tobacco Cessation:Counseling Given: Not Answered Alcohol Use Standard Drinks/Week Comments Yes 0 [...] Orientation Straight 01/09/2022 8: 52 AM EDT Last Filed Vital Signs Vital Sign Reading Time Taken Comments Blood Pressure 131/82 07/22/2024 4:39 PM EDT Pulse 102 07/22/2024 4:39 PM EDT Temperature 37.2 C (99 F) 07/22/2024 4:39 PM EDT Respiratory Rate 16 07/22/2024 4:39 PM EDT Oxygen Saturation 96% 07/22/2024 4:39 PM EDT Inhaled Oxygen Concentration - - Weight 108.9 kg (240 lb) 07/22/2024 4:39 PM EDT Height 172.7 cm (5' 8 ) 07/22/2024 4:39 PM EDT Body Mass Index 36.49 07/22/2024 4:39 PM EDT Plan of Treatment Health Maintenance Due Date Last Done Comments Adult Td,Tdap Booster 1960 DEPRESSION SCREENING 1974 HEPATITIS C SCREENING 1980 HIV ONE-TIME SCREENING (18-65 YEARS) 1980 PNEUMOCOCCAL VACCINES (50+ years) (1 of 2 - PCV) 1981 COLOGUARD 2007 FIT TEST 2007 FOBT 2007 SIGMOIDOSCOPY 2007 VIRTUAL COLONOSCOPY 2007 RSV VACCINE (1 - Risk 50-74 years 1-dose series) 2012 ZOSTER VACCINES (1 of 2) 2012 INFLUENZA VACCINE (#1) 2025 07/26/2017, 2015 COVID-19 VACCINE (3 - season) 2025 11/04/2020, 10/18/2020 CREATININE LEVEL 09/15/2025 09/15/2024, 03/2024, 02/27/2024, Additional history exists POTASSIUM LEVEL 09/15/2025 09/15/2024, 08/0 03/2024, 02/27/2024, Additional history exists SCREENING FOR DIABETES 09/15/2027 09/15/2024, 2022 LIPID PANEL 09/15/2029 09/15/2024, 05/0 10/2023, 07/13/2023, Additional history exists COLONOSCOPY 03/02/2032 03/02/2022 COLORECTAL CANCER SCREENING 03/02/2032 SMOKING STATUS SCREENING (Once After 26 Yrs) Completed 07/22/2024 HEPATITIS A VACCINES Aged Out No long er eligible based on patient's age to complete this topic HIB VACCINES Aged Out No longer eligi ble based on patient's age to complete this topic MENINGOCOCCAL VACCINES (ACWY) Aged Out No longer eligible based on patient's age to complete this topic MENINGOCOCCAL VACCINES (B) Aged Out N o longer eligible based on patient's age to complete this topic Medical Devices Not on file Procedures Procedure Name Priority Date/Time Associated Diagnosis Comments PT-INR Routine 07/15/2025 9:52 AM EDT DVT (deep venous thrombosis) Chronic anticoagulation PT-INR Routine 06/08/2025 8:51 AM EDT DVT (deep venous thrombosis) Chronic anticoagulation LIPID PANEL Routine 09/15/2024 7:36 AM EST Asthmatic bronchitis without complication, unspecified asthma severity, unspecified whether persistent Mixed hyperlipidemia COMPREHENSIVE METABOLIC PANEL Routine 09/15/2024 7:36 AM EST Asthmatic bronchitis without complication, unspecified asthma severity, unspecified whether persistent Mixed hyperlipidemia ENDOSCOPY, COLON 03/02/2022 2:18 PM EDT from Last 3 Months or Most Recently Relevant to Health Maintenance Results * (ABNORMAL) PT-INR (07/15/2025 9:52 AM EDT) Only the most recent of2 resultswithin the time period is included. PT 34.9(H) 10.2 - 12.9 sec [facility] INR 2.8(H) 0.9 - 1.1 [facility] Comment:Therapeutic range fo r oral Vitamin K antagonists: 2.0-3.5 Blood 07/15/2025 9:52 AM EDT 07/15/2025 10:00 AM EDT us Jeremías Knox MD LAB BLOOD ORDERABLES Final Result [facility] [address] [place] [address] * (ABNORMAL) Comprehensive metabolic panel (09/15/2024 7:36 AM EST) SODIUM 135 133 - 146 mmol/L [facility] POTASSIUM 4.2 3.3 - 5.1 mmol/L [facility] Comment:Specimen slightly he molyzed, result may be falsely elevated. CHLORIDE 101 96 - 108 mmol/L [facility] CO2 24 21 - 35 mmol/L [facility] BUN 39(H) 6 - 19 mg/dL [facility] CREATININE 1.80(H) 0.5 - 1.5 mg/dL [facility] GLUCOSE 113(H) 70 - 99 mg/dL [facility] ALBUMIN 3.8(L) 3.9 - 4.8 g/dL [facility] TOTAL PROTEIN 7.8 6.5 - 8.0 g/dL [facility] CALCIUM 9.3 8.4 - 10.3 mg/dL [facility] ALKALINE PHOSPHATASE 110 39 - 117 U/L [facility] TOTAL BILIRUBIN 0.5 0.0 - 1.2 mg/dL [facility] AST 45(H) 0 - 37 U/L [facility] ALT 55(H) 0 - 40 U/L [facility] GLOBULIN 4.0 1 - 4.8 g/dL [facility] EGFR 42(L) >59 mL/min/1.7 3m2 [facility] Comment:Estimated glomerular filtration rate calculated using the CKD-EPI refit equation. ANION GAP 14 10 - 20 mmol/L [facility] Blood 09/15/2024 7:36 AM EST 09/15/2024 7:40 AM EST Jeremías Knox MD LAB BLOOD ORDERABLES Final Result [address] [address] * (ABNORMAL) Lipid panel (09/15/2024 7:36 AM EST) HDL 45 mg/dL [facility] Comment: Interpretation <40 mg/dL: Low HDL cholesterol (major risk factor for CHD) Greater than or equal to 60 mg/dL: High HDL cholesterol ( negative risk factor for CHD) HDL - cholesterol is affected by a number of factors, e.g. smoking, excerise, hormones, sex and age. CHOLESTEROL 252(H) 0 - 240 mg/dL [facility] TRIGLYCERIDES 260(H) 30 - 160 mg/dL [facility] LDL 155(H) 50 - 129 mg/dL [facility] Comment: LDL levels in terms of risk for coronary heart disease: <100 mg/dL: Optimal 100-129 mg/dL: Near or above optimal 130-159 mg/dL: Borderline high 160-189 mg/dL: High >190 mg/dL: Very High CARDIAC RISK RATIO 5.6(H) 3.4 - 5.0 C [facility] Blood 09/15/2024 7:36 AM EST 09/15/2024 7:40 AM EST us Jeremías Knox MD LAB BLOOD ORDERABLES Final Result Performing Organization Address City/State/RUST Co de Phone Number [facility] [address] [place] [address] * ENDOSCOPY, COLON (03/02/2022 2:18 PM EDT) Narrative Transcriptions Kari Argueta MD - 03/02/2022 2:18 PM EDT Patient Name: Alejandro Correa Attending MD:: KARI ARGUETA MD Procedure Date: 03/02/2022 2:18 PM Date of : 1960 Age: 61 Admit Type: Outpatient Gender: Male Room: [facility] Referring MD: Mick Knox Exam Type: Colonoscopy Indications: This is the patient's first colonoscopy, Diarrhea, Weight loss Medications: Propofol per Anesthesia Procedure: Informed consent was obtained from the patientafter discussion of the indications, limitations, alternatives, benefits, and risks of the procedure. Risks specifically discussed include but are not limited to medication reactions, missed lesions, bleeding, perforation, or the need for emergent surgery. Throughout the procedure, the patient's blood pressure, pulse, end-tidal CO2, and oxygensaturations were monitored continuously. The Olympus adult variable colonoscope [id number] #3 was introduced through the anus and advanced to the terminal ileum, with identification of theappendiceal orifice and IC valve. The terminal ileum, the appendiceal orifice and the rectum werephotographed. The colonoscopy was performed without difficulty.The patient tolerated the procedure well. The qualityof the bowel preparation was good. The bowelpreparation used was GoLYTELY via split dose instruction. Complications: No immediate complications. Estimated blood loss:None. Findings: The perianal and digital rectal examinations were normal. Pertinent negatives include normal prostate (size, shape, and consistency). The retroflexed view of the distal rectum and anal verge was normal and showed no anal or rectal abnormalities. A few medium-mouthed diverticula were found in the sigmoid colon. The exam was otherwise without abnormality. The terminal ileum appeared normal. Retroflexion in the right colon was performed. Biopsies for histology were taken with a coldforceps from the ascending colon, transverse colon and descending colon for evaluation of microscopiccolitis. Impression: - The distal rectum and anal verge are normal on retroflexion view. - Diverticulosis in the sigmoid colon. - The examination was otherwise normal. - The examined portion of the ileum was normal. - Biopsies were taken with a cold forceps from the ascending colon, transverse colon and descendingcolon for evaluation of microscopic colitis. Recommendation: - Await pathology results. - Use fiber, for example Citrucel, Fibercon, Konsylor Metamucil. Start with 1 tablespoon daily in wanteror juice. If no significant improvement in 1-2 weeks, increase to2X/d. - Repeat colonoscopy in 10 years for screening purposes. KARI ARGUETA MD 03/02/2022 3:03:41 PM This report has been signed electronically. Number of Addenda: 0 Note Initiated On: 03/02/2022 2:18 PM Procedure Code(s): --- Professional --- 70643, Colonoscopy, flexible; with biopsy, single or multiple --- Technical --- 40143, Colonoscopy, flexible; with biopsy, single or multiple Diagnosis Code(s): --- Professional --- R19.7, Diarrhea, unspecified R63.4, Abnormal weight loss K57.30, Diverticulosis of large intestine without perforation or abscess without bleeding --- Technical --- R19.7, Diarrhea, unspecified R63.4, Abnormal weight loss K57.30, Diverticulosis of large intestine without perforation or abscess without bleeding CPT copyright 2020 [employer]. All rights reserved. The codes documented in this report are preliminary and upon inductor tester reviewmay be revised to meet current compliance requirements. Procedure Date: 03/02/2022 2:18:28 PM [address] [place] [address] Mick Knox MD GI PROCEDURE ORDERAB LES Final Result from Last 3 Months or Most Recently Relevant to Health Maintenance Insurance Advance Directives For more information, please contact: [phone] (9AM - 5PM [place], Sunday-Sunday) * Full Code (Latest Code Status on File) Date Activated Date Inactivated Comments 07/12/2023 7:52 PM Question Answer Comments Code Status Confirmed With: Patient Care Teams Stock Controller Relationship Specialty Start Date End Date Jeremías Knox MD [address] [place] [phone] PCP - General Pediatrics 05/09/22 Angel Doty MBBS [address] [place] [phone] [email or web address] Medical Oncology 02/27/24 Additional Source Comments The information contained in this document represents components of the legal health record. It is not the complete legal health record.[facility]
--- OUTSIDE RECORDS SUMMARY | 2025-08-10 10:39 | XMS_ITS | Encounter Summary ---
Author Organization [facility] Address [address] [facility] [address] [place] [phone] Phone Care Team Providers Care Wood Cabinetmaker Name Role Phone Jeremías Knox MD Primary Care Provid er Angel Doty MBBS Unavailable [phone] Encounter Details Date Type Department Care Team (Late st Contact Info) Description 07/12/2023 Procedure Pass [facility], [address] [address] Social History Tobacco Use Types Packs/Day Years [...] 3:04 PM EDT Analy Barksdale RN * [place] Suicide Severity Rating Scale (Screener/Recent Self-Report) Question [...] on filedocumented in this encounter Care Teams Wood Cabinetmaker Relationship Specialty Start Date End Date Jeremías Knox MD [address] [place] [phone] PCP - General Pediatrics 05/09/22 Angel Doty MBBS [address] [place] [phone] [email or web address] Medical Oncology 02/27/24 documented as of this encounter Additional Source Comments The information contained in this document represents components of the legal health record. It is not the complete legal health record.[facility]
--- OUTSIDE RECORDS SUMMARY | 2025-08-10 10:39 | XMS_ITS | Encounter Summary ---
Author Organization [facility] Address [address] [facility] [address] [place] [phone] Phone Care Team Providers Care Insole Buffer Name Role Phone Jeremías Knox MD Primary Care Provid er Jeremías Knox MD Primary Care Provid er Angel Doty MBBS Unavailable [phone] Encounter Details Date Type Department Care Team (Late st Contact Info) Description 12/29/2021 Procedure Pass [facility], Ct Scan - [address] [address] Social History Tobacco Use Types Packs/Day Years [...] on filedocumented in this encounter Care Teams Insole Buffer Relationship Specialty Start Date End Date Jeremías Knox MD [address] [facility] [address] [place] [phone] PCP - General Pediatrics 08/29/17 05/08/22 Jeremías Knox MD [address] [place] [phone] PCP - General Pediatrics 05/09/22 Angel Doty MBBS [address] [place] [phone] [email or web address] Medical Oncology 02/27/24 documented as of this encounter Additional Source Comments The information contained in this document represents components of the legal health record. It is not the complete legal health record.[facility]
--- OUTSIDE RECORDS SUMMARY | 2025-08-10 10:39 | XMS_ITS | Encounter Summary ---
Author Organization [facility] Address [address] [facility] [address] [place] [phone] Phone Care Team Providers Care Fur Finisher Tailor Name Role Phone Jeremías Knox MD Primary Care Provid er Jeremías Knox MD Primary Care Provid er Angel Doty [facility] Unavailable [phone] Reason for Referral * Consultation (Elective) - Closed Specialty Diagnoses / Procedures Referred By Contac t Referred To Contact Diagnoses Deep vein thrombosis (DVT) of non-extremity vein, unspecified chronicity Jeremías Knox MD Phone: tel: fax: [facility] [address] [place] [address] Phone: tel: Referral ID Status Reason Start Date Expiration Date Visits Re quested Visits Authorized [id number] Closed 04/29/2021 04/29/2022 1 1 Encounter Details Date Type Department Care Team (Latest Contact Info) Description 04/29/2021 Transcribe Orders Virtual Department [address] [place] [address] Jeremías Knox MD [address] [place] [phone] Deep vein thrombosis (DVT) of non-extremity vein, unspecified chronicity (Primary Dx) Social History Tobacco Use Types [...] as of this encounter Plan of Treatment Scheduled Referrals Name Type Priority Associated Diagnoses Order Schedule Ambulatory referral to [facility] Anticoagulation Clinic Outpatient Referral Routine Deep vein thrombosis (DVT) of non-extremity vein, unspecified chronicity Ordered: 04/29/2021 documented as of this encounter Visit Diagnoses Diagnosis Deep vein thrombosis (DVT) of non-extremity vein, unspecified chronicity- Primary documented in this encounter Care Teams Fur Finisher Tailor Relationship Specialty Start Date End Date Jeremías Knox MD [address] [place] [phone] PCP - General Pediatrics 08/29/17 05/08/22 Jeremías Knox MD [address] [place] [phone] PCP - General Pediatrics 05/09/22 Angel Doty MBBS [address] [place] [phone] [email or web address] Medical Oncology 02/27/24 documented as of this encounter Additional Source Comments The information contained in this document represents components of the legal health record. It is not the complete legal health record.[facility]
--- OUTSIDE RECORDS SUMMARY | 2025-08-10 10:39 | XMS_ITS | Encounter Summary ---
Author Organization [facility] Address [address] [facility] [address] [place] [address] Phone Care Team Providers Care Accountant Helper Name Role Phone Jeremías Knox MD Primary Care Provid er Jeremías Knox MD Primary Care Provid er Angel Doty MB Unavailable [phone] Encounter Details Date Type Department Care Team (Latest Contact Info) Description 08/29/2017 Transcribe Orders [facility] Laboratory [address] [place] [address] Jeremías Knox MD [address] [facility] [address] [place] [address] Deep phlebothrombosis, antepartum, with delivery [...] on file documented as of this encounter Procedures Procedure Name Priority Date/Time Associated Diagnosis Comments PT-INR Routine 08/29/2017 10:58 AM EDT Deep phlebothrombosis, antepartum, with delivery documented in this encounter Results * (ABNORMAL) PT-INR (08/29/2017 10:58 AM EDT) PT 21.9(H) 10.2 - 12.9 sec [facility] INR 1.9(H) 0.9 - 1.1 [facility] Comment:Therapeutic range fo r oral Vitamin K antagonists: 2.0-3.5 Blood 08/29/2017 10:5 8 AM EDT 08/29/2017 3:58 PM EDT us Jeremías Knox MD LAB BLOOD ORDERABLES Edited Result - Final [facility] [address] [place] [address] documented in this encounter Visit Diagnoses Diagnosis Deep phlebothrombosis, antepartum, with delivery- Primary documented in this encounter Additional Health Concerns Infection Onset Date Last Indicated Resolved Time CoV-Exposed Comment:Recent close contact 05/27/2020 05/27/2020 06/10/2020 1:27 AM EDT documented as of this encounter Care Teams Accountant Helper Relationship Specialty Start Date End Date Jeremías Knox MD [address] [place] [phone] PCP - General Pediatrics 08/29/17 05/08/22 Jeremías Knox MD [address] [place] [address] [phone] PCP - General Pediatrics 05/09/22 Angel Doty MBBS [address] [place] [address] [phone] [email or web address] Medical Oncology 02/27/24 documented as of this encounter Additional Source Comments The information contained in this document represents components of the legal health record. It is not the complete legal health record.[facility]
--- OUTSIDE RECORDS SUMMARY | 2025-08-10 10:39 | XMS_ITS | Encounter Summary ---
Author Organization [facility] Address [address] [employer] [facility] [address] [place] [address] Phone Care Team Providers Care Sap Bpc Developer Name Role Phone Jeremías Knox MD Primary Care Provid er Angel Doty MBBS Unavailable [phone] Encounter Details Date Type Department Care Team (Latest Contact Info) Description 06/13/2023 Transcribe Orders Virtual Department [address] [place] [address] Jeremías Knox MD 35 [facility] 1 [place] [address] Benign neoplasm of cerebral meninges (Primary Dx) [...] with a working camera? Not on file Sex and Gender Information Value Date Recorded Sex Assigned at Male 01/09/2022 8:52 AM EDT Legal Sex Male 4:23 PM EST Gender Identity Male 01/09/2022 8:52 AM EDT Sexual Orientation Straight 01/09/2022 8: 52 AM EDT documented as of this encounter Plan of Treatment Not on file documented as of this encounter Visit Diagnoses Diagnosis Benign neoplasm of cerebral meninges- Primary documented in this encounter Care Teams Sap Bpc Developer Relationship Specialty Start Date End Date Jeremías Knox MD [address] [phone] PCP - General Pediatrics 05/09/22 Angel Doty MBBS [address] [place] [address] [phone] [email or web address] Medical Oncology 02/27/24 documented as of this encounter Additional Source Comments The information contained in this document represents components of the legal health record. It is not the complete legal health record.[facility]
--- OUTSIDE RECORDS SUMMARY | 2025-08-10 10:39 | XMS_ITS | Encounter Summary ---
Author Organization [facility] Address [address] [facility] [address] [place] [address] Phone Care Team Providers Care Adult Caregiver Name Role Phone Jeremías Knox MD Primary Care Provid er Jeremías Knox MD Primary Care Provid er Angel Doty MB Unavailable [phone] Encounter Details Date Type Department Care Team (Latest Contact Info) Description 09/27/2017 Transcribe Orders [facility] Laboratory [address] [place] [address] Jeremías Knox MD 35 [facility] [address] [place] [address] Deep phlebothrombosis, antepartum, with delivery [...] of this encounter Visit Diagnoses Diagnosis Deep phlebothrombosis, antepartum, with delivery- Primary documented in this encounter Additional Health Concerns Infection Onset Date Last Indicated Resolved Time CoV-Exposed Comment:Recent close contact 05/27/2020 05/27/2020 06/10/2020 1:27 AM EDT documented as of this encounter Care Teams Adult Caregiver Relationship Specialty Start Date End Date Jeremías Knox MD [address] [place] [phone] PCP - General Pediatrics 08/29/17 05/08/22 Jeremías Knox MD [address] [place] [phone] PCP - General Pediatrics 05/09/22 Angel Doty MBBS [address] [place] [phone] [email or web address] Medical Oncology 02/27/24 documented as of this encounter Additional Source Comments The information contained in this document represents components of the legal health record. It is not the complete legal health record.[facility]
--- OUTSIDE RECORDS SUMMARY | 2025-08-10 10:39 | XMS_ITS | Encounter Summary ---
Author Organization [facility] Address [address] [facility] [address] [place] [address] Phone Care Team Providers Care Customer Service Technician Name Role Phone Jeremías Knox MD Primary Care Provid er Jeremías Knox MD Primary Care Provid er Angel Doty [facility] Unavailable [phone] Reason for Referral * Consultation (Elective) - Closed Specialty Diagnoses / Procedures Referred By Contac t Referred To Contact Diagnoses Acute venous embolism and thrombosis of deep vessels of proximal lower extremity, unspecified laterality Jeremías Knox MD Phone: tel: fax: [facility] [address] [place] [address] Phone: tel: Referral ID Status Reason Start Date Expiration Date Visits Re quested Visits Authorized [id number] Closed 12/20/2017 12/20/2018 1 1 Encounter Details Date Type Department Care Team (Latest Contact Info) Description 12/20/2017 Transcribe Orders [facility] Department [address] [place] [address] Jeremías Knox MD [address] [place] [phone] Acute venous embolism and thrombosis of deep vessels of proximal lower extremity, unspecified laterality (Primary Dx) Social History Tobacco Use Types [...] Associated Diagnoses Order Schedule Ambulatory referral to [facility] Outpatient Referral Routine Acute venous embolism and thrombosis of deep vessels of proximal lower extremity, unspecified laterality Ordered: 12/20/2017 documented as of this encounter Visit Diagnoses Diagnosis Acute venous embolism and thrombosis of deep vessels of proximal lower extremity, unspecified laterality- Primary documented in this encounter Additional Health Concerns Infection Onset Date Last Indicated Resolved Time CoV-Exposed Comment:Recent close contact 05/27/2020 05/27/2020 06/10/2020 1:27 AM EDT documented as of this encounter Care Teams Customer Service Technician Relationship Specialty Start Date End Date Jeremías Knox MD [address] [place] [phone] PCP - General Pediatrics 08/29/17 05/08/22 Jeremías Knox MD [address] [place] [phone] PCP - General Pediatrics 05/09/22 Angel Doty MBBS [address] [place] [phone] [email or web address] Medical Oncology 02/27/24 documented as of this encounter Additional Source Comments The information contained in this document represents components of the legal health record. It is not the complete legal health record.[facility]
--- OUTSIDE RECORDS SUMMARY | 2025-08-10 10:39 | XMS_ITS | Encounter Summary ---
Author Organization [facility] Address [address] [facility] [address] [place] [address] Phone Care Team Providers Care Records Manager Name Role Phone Jeremías Knox MD Primary Care Provid er Jeremías Knox MD Primary Care Provid er Angel Doty MBBS Unavailable [phone] Reason for Referral * MRI/CAT Scan - Closed Specialty Diagnoses / Procedures Referred By Contac t Referred To Contact Radiology Diagnoses Benign neoplasm of cerebral meninges Procedures MRI Brain CHG MRI BRAIN CHG MRI BRAIN COMBO Jeremías Knox MD Phone: tel: fax: Referral ID Status Reason Start Date Expiration Date Visits Re quested Visits Authorized [id number] Closed 05/03/2022 07/02/2022 1 1 Encounter Details Date Type Department Care Team (Latest Contact Info) Description 05/03/2022 Transcribe Orders Virtual Department 30 [place] [address] Jeremías Knox MD [address] [phone] Benign neoplasm of cerebral meninges (Primary [...] * MRI BRAIN WITH AND WITHOUT CONTRAST (05/23/2022 5:42 PM EDT) Anatomical Region Laterality Modality Head Magnetic Resonan ce 05/23/2022 5:58 PM EDT Impressions 05/23/2022 6:13 PM EDT 1.No acute abnormality. 2.Benign 1.3 cm left frontal meningioma. 3.Few white matter T2 hyperintense nonenhancing foci, most commonly seen with chronic migraines and mild chronic microvascular ischemic disease. Narrative 05/23/2022 6:13 PM EDT MRI BRAIN WITH AND WITHOUT CONTRAST TECHNIQUE: Multi-sequence, multi-planar MRI of the brain was performed before and after intravenous contrast. COMPARISON: CT head dated 01/12/2022 FINDINGS: Patient motion artifact mildly degrades several images. Within this confine: Brain Parenchyma: No evidence of acute infarct or hemorrhage. There is a well-defined homogeneously enhancing left frontal convexity dural based mass measuring 1.3 x 0.8 x 1.1 cm, corresponding to the partially calcified lesion seen on CT, consistent with benign meningioma. Mild mass-effect without midline shift. No associated vasogenic edema. Otherwise, there is no abnormal enhancement. There are a few scattered bilateral subcortical and periventricular white matter T2/FLAIR hyperintense nonenhancing foci seen, nonspecific but are most commonly seen with chronic migraines and mild chronic microvascular ischemic disease. Less common differential considerations include demyelinating processes (such as MS), Lyme disease, vasculitis, among other etiologies. Ventricular System and Extra-Axial Spaces: Normal. No evidence of midline shift or hydrocephalus. Extracranial Structures: Arterial flow voids in the skull base are present. The paranasal sinuses and mastoid air cells are clear. The orbits are unremarkable Procedure Note Patti Kaur MD - 05/23/2022 MRI BRAIN WITH AND WITHOUT CONTRAST TECHNIQUE: Multi-sequence, multi-planar MRI of the brain was performed before andafter intravenous contrast. COMPARISON: CT head dated 01/12/2022 FINDINGS: Patient motion artifact mildly degrades several images. Within thisconfine: Brain Parenchyma: No evidence of acute infarct or hemorrhage. There is a well-defined homogeneously enhancing left frontal convexitydural based mass measuring 1.3 x 0.8 x 1.1 cm, corresponding to thepartially calcified lesion seen on CT, consistent with benign meningioma.Mild mass-effect without midline shift. No associated vasogenic edema.Otherwise, there is no abnormal enhancement. There are a few scattered bilateral subcortical and periventricular whitematter T2/FLAIR hyperintense nonenhancing foci seen, nonspecific but aremost commonly seen with chronic migraines and mild chronic microvascularischemic disease. Less common differential considerations includedemyelinating processes (such as MS), Lyme disease, vasculitis, amongother etiologies. Ventricular System and Extra-Axial Spaces: Normal. No evidence of midlineshift or hydrocephalus. Extracranial Structures: Arterial flow voids in the skull base arepresent. The paranasal sinuses and mastoid air cells are clear. The orbits areunremarkable IMPRESSION: 1.No acute abnormality. 2.Benign 1.3 cm left frontal meningioma. 3.Few white matter T2 hyperintense nonenhancing foci, most commonly seenwith chronic migraines and mild chronic microvascular ischemic disease. Jeremías Knox MD IMG MR HEAD/NECK Fin al Result documented in this encounter Visit Diagnoses Diagnosis Benign neoplasm of cerebral meninges- Primary Benign neoplasm of cerebral meninges documented in this encounter Care Teams Records Manager Relationship Specialty Start Date End Date Jeremías Knox MD [address] [phone] PCP - General Pediatrics 08/29/17 05/08/22 Jeremías Knox MD [address] [phone] PCP - General Pediatrics 05/09/22 Angel Doty MBBS [address] [place] [phone] [email or web address] Medical Oncology 02/27/24 documented as of this encounter Additional Source Comments The information contained in this document represents components of the legal health record. It is not the complete legal health record.[facility]
--- OUTSIDE RECORDS SUMMARY | 2025-08-10 10:39 | XMS_ITS | Encounter Summary ---
Author Organization [facility] Address [address] [place] [facility] [place] [address] [place] [address] Phone Care Team Providers Care Superannuation Clerk Name Role Phone Jeremías Knox MD Primary Care Provid er Angel Doty MBBS Unavailable [phone] Encounter Details Date Type Department Care Team (Late st Contact Info) Description 07/12/2023 Procedure Pass [facility] Scan - [address] [address] Social History Tobacco Use Types Packs/Day Years [...] 3:04 PM EDT Analy Barksdale RN * [place] Suicide Severity Rating Scale (Screener/Recent Self-Report) Question [...] on filedocumented in this encounter Care Teams Superannuation Clerk Relationship Specialty Start Date End Date Jeremías Knox MD [address] [place] [address] [phone] PCP - General Pediatrics 05/09/22 Angel Doty MBBS [address] [place] [address] [phone] [email or web address] Medical Oncology 02/27/24 documented as of this encounter Additional Source Comments The information contained in this document represents components of the legal health record. It is not the complete legal health record.[facility]
--- OUTSIDE RECORDS SUMMARY | 2025-08-10 10:39 | XMS_ITS | Encounter Summary ---
Author Organization [facility] Address [address] [facility] [address] [place] [address] Phone Care Team Providers Care Chief General Pediatric Clinic Name Role Phone Jeremías Knox MD Primary Care Provid er Jeremías Knox MD Primary Care Provid er Angel Doty [facility] Unavailable [phone] Encounter Details Date Type Department Care Team (Latest Contact Info) Description 12/27/2017 Transcribe Orders [facility] Laboratory [address] [place] [address] Jeremías Knox MD [address] [phone] Essential hypertension, benign (Primary Dx) Social History Tobacco Use Types [...] documented as of this encounter Results * PSA (screening) (12/27/2017 9:10 AM EST) PSA 1.17 0 - 4.00 ng/mL [facility] Blood 12/27/2017 9:10 AM EST 12/27/2017 9:16 AM EST Jeremías Knox MD LAB BLOOD ORDERABLES Final Result Performing Organization Address [facility] Co de Phone Number [address] [address] * (ABNORMAL) CBC (12/27/2017 9:05 AM EST) WBC 4.12 3.40 - 11.20 K/uL [facility] RBC 5.72(H) 4.50 - 5.50 M/uL [facility] HGB 18.0(H) 13.0 - 17.0 g/dL [facility] HCT 51.8(H) 40.0 - 51.0 % [facility] PLT 171 130 - 400 K/uL [facility] MCV 90.6 79.0 - 98.0 fL [facility] MCH 31.5 27.0 - 34.8 pg [facility] MCHC 34.7 31.5 - 36.0 g/dL [facility] RDW 12.6 10.8 - 14.6 % [facility] MPV 9.7 9.4 - 12.4 fl [facility] NRBC 0.00 /100 WBCs [facility] ABSOLUTE NRBC 0.00 K/uL [facility] Blood 12/27/2017 9:05 AM EST 12/27/2017 9:17 AM EST Jeremías Knox MD LAB BLOOD ORDERABLES Final Result Performing Organization Address City/[facility] Co de Phone Number [address] [address] * (ABNORMAL) Lipid panel (12/27/2017 9:05 AM EST) HDL 53 mg/dL [facility] Comment: Interpretation: Risk Level Males Decreased >45 mg/dL Average 40-45 mg/dL Increased <40 mg/dL CHOLESTEROL 287(H) 0 - 240 mg/dL [facility] TRIGLYCERIDES 165(H) 30 - 160 mg/dL [facility] LDL 201(H) 50 - 129 mg/dL [facility] Comment: LDL levels in terms of risk for coronary heart disease: <100 mg/dL: Optimal 100-129 mg/dL: Near or above optimal 130-159 mg/dL: Borderline high 160-189 mg/dL: High >190 mg/dL: Very High CARDIAC RISK RATIO 5.4(H) 3.4 - 5.0 C [facility] Blood 12/27/2017 9:05 AM EST 12/27/2017 9:17 AM EST Jeremías Knox MD LAB BLOOD ORDERABLES Final Result [address] [address] * (ABNORMAL) Basic metabolic panel (12/27/2017 9:05 AM EST) SODIUM 136 133 - 146 mmol/L [facility] CHLORIDE 96 96 - 108 mmol/L [facility] POTASSIUM 4.1 3.3 - 5.1 mmol/L [facility] CO2 28 21 - 35 mmol/L [facility] BUN 26(H) 6 - 19 mg/dL [facility] CREATININE 0.90 0.5 - 1.5 mg/dL [facility] GLUCOSE 93 70 - 99 mg/dL [facility] CALCIUM 9.6 8.4 - 10.3 mg/dL [facility] EGFR >60 >60 mL/min/1.7 3m2 [facility] Comment:Abnormal if <60. If patient is -Latvian, multiply the result by 1.21. ANION GAP 16 10 - 20 mmol/L [facility] Blood 12/27/2017 9:05 AM EST 12/27/2017 9:17 AM EST Jeremías Knox MD LAB BLOOD ORDERABLES Final Result Performing Organization Address [facility]/ZIP Co de Phone Number [address] [address] documented in this encounter Visit Diagnoses Diagnosis Essential hypertension, benign- Primary documented in this encounter Additional Health Concerns Infection Onset Date Last Indicated Resolved Time CoV-Exposed Comment:Recent close contact 05/27/2020 05/27/2020 06/10/2020 1:27 AM EDT documented as of this encounter Care Teams Chief General Pediatric Clinic Relationship Specialty Start Date End Date Jeremías Knox MD [address] [place] [phone] PCP - General Pediatrics 08/29/17 05/08/22 Jeremías Knox MD [address] [place] [address] [phone] PCP - General Pediatrics 05/09/22 Angel Doty MBBS [address] [place] [phone] [email or web address] Medical Oncology 02/27/24 documented as of this encounter Additional Source Comments The information contained in this document represents components of the legal health record. It is not the complete legal health record.[facility]
--- OUTSIDE RECORDS SUMMARY | 2025-08-10 10:39 | XMS_ITS | Encounter Summary ---
Author Organization [facility] Address [address] [facility] [address] [place] [address] Phone Care Team Providers Care Shop Router Name Role Phone Jeremías Knox MD Primary Care Provid er Angel Doty MBBS Unavailable [phone] Encounter Details Date Type Department Care Team (Late st Contact Info) Description 08/20/2024 Procedure Pass [facility], [address] [address] Social History Tobacco Use Types Packs/Day Years [...] on filedocumented in this encounter Care Teams Shop Router Relationship Specialty Start Date End Date Jeremías Knox MD [address] [phone] PCP - General Pediatrics 05/09/22 Angel Doty MBBS [address] [place] [phone] [email or web address] Medical Oncology 02/27/24 documented as of this encounter Additional Source Comments The information contained in this document represents components of the legal health record. It is not the complete legal health record.[facility]
[2025-08-10] MEDS: iohexoL 350 MG/ML 75 ML INFUS..BTL 85 ML IV (11:15)
[2025-08-10 11:21] LABS: INTERNATIONAL NORM RATIO 3.6 (0.9-1.1); Prothrombin Time 41.7 SEC (10.9-12.4)
[2025-08-10 11:50] VITALS: BP 133/70; PULSE 88; TEMP 36.8; O2SAT 96
[2025-08-10] MEDS: metroNIDAZOLE/NS 500 MG/100 ML PIGGYBACK 100 MG IV ×2 (12:14→19:43)
[2025-08-10 13:38] LABS: Appearance Urine Clear; Glucose Urine UA 100 mg/dL (Negative); PH 5.5 (5.0-9.0); Specific Gravity - Urine >= 1.030 (1.005-1.025); UMIC TRIGGER UACC YES
[2025-08-10 14:00] VITALS: BP 125/72; PULSE 87; TEMP 37.2; O2SAT 98
--- NOTE | 2025-08-10 14:23 | P.HPGS_ITS ---
History of Present Illness History of Present Illness Date of Service: 08/10/25 Chief complaint: abd pain Narrative: Alejandro Correa is a 64 year old male with a past medical history of antiphospholipid syndrome on Coumadin presenting with a 48 hour history of abdominal pain located in the left lower quadrant which is increasing in severity. He initially reported feeling bloated for the past several weeks and developing increased constipation which is unusual for him. Over the weekend it became more sharp and localized to the left lower quadrant and increased with movement. He reports being on ibuprofen for pain in his left leg due to a pyoderma gangrenosum lesion which was recently diagnosed. He undergoes outpatient wound care treatment for this leg wound but continues to have severe pain associated with the lesion. Patient presented to the emergency department because of the increased abdominal pain. He was found to have stable vital signs but was exquisitely tender in the lower abdomen. Laboratories revealed an elevated WBC of 17.1, and a platelet count of 76. PT 41.7, INR 3.6, BUN 56, creatinine 2.06, lactic acid 0.7. CT abdomen and pelvis revealed evidence of hemoperitoneum suggestive of a bowel perforation most likely from a sigmoid diverticulitis. Areas of the inflammation are identified in the proximal sigmoid colon/descending colon with a small fluid collection without a definite abscess. Patient was admitted to the surgical service for further management of this perforated sigmoid diverticulitis. He denies a previous history of diverticular disease. Review of Systems Review of Systems: Yes all other systems are reviewed and are negative Constitutional: Constitutional: Reports anorexia and Denies night sweats Cardiovascular: Cardiovascular: Reports Abdominal Distension, Denies chest pain, Reports Epigastric Pain, Reports dyspnea and Denies slow heart rate Respiratory: Respiratory: Reports dyspnea Gastrointestinal: Gastrointestinal: Reports abdominal pain, Reports change in bowel habits, Reports constipation and Reports nausea Integumentary/Breasts: Skin/Breast: Reports changing lesions and Reports skin pain PMFSH Past Medical History Medical History (Updated 08/10/25 @ 14:35 by Gallito Razo MD) Antiphospholipid syndrome Pyoderma gangrenosum Social History Social History Advance Directives: No Advance Directives Information Provided: Yes Do you have a plan to hurt others: No Plan Meds Allergies Allergy/AdvReac Type Severity Reaction Status Date / Time bacitracin Allergy Unknown Verified 08/10/25 09:38 celecoxib (From Celebrex) Allergy Unknown Verified 08/10/25 09:38 cephalexin (From Keflex) Allergy Unknown Verified 08/10/25 09:38 sulfacetamide (From Allergy Unknown Verified 08/10/25 09:38 Sulfamide) sulfamethoxazole (From Allergy Unknown Verified 08/10/25 09:38 Bactrim) trimethoprim (From Bactrim) Allergy Unknown Verified 08/10/25 09:38 Active Medications: Current Medications Calcium Carbonate (Calcium Carbonate 750 Mg Tab.Chew) 750 mg PO Q4H PRN PRN Reason: Heartburn Acetaminophen (Ofirmev) 1,000 mg in 100 mls @ 400 mls/hr IV Q6H PRN PRN Reason: Pain, Mild (Pain Scale 1-3) Dextrose/Lactated Ringer's (D5lr) 1,000 mls @ 125 mls/hr IVCONT .Q8H JONATHAN Magnesium Hydroxide (Milk Of Magnesia 30 Ml Oral.Susp) 30 ml PO DAILY PRN PRN Reason: Constipation Ondansetron HCl (Ondansetron Hcl 4 Mg/2 Ml Vial) 4 mg IVPUSH QID PRN PRN Reason: Nausea Sodium Chloride (0.9 % Sodium Chloride Flush 3 Ml Syringe) 3 ml IVFLUSH QSHIFT JONATHAN Zolpidem Tartrate (Zolpidem Tartrate 5 Mg Tablet) 5 mg PO BEDTIME PRN PRN Reason: Insomnia Physical Exam Vital Signs: Vital Signs: Last Vital Signs Temp 98.9 F 08/10/25 14:00 Pulse 87 08/10/25 14:00 Resp 18 08/10/25 09:34 BP 125/72 08/10/25 14:00 Pulse Ox 98 08/10/25 14:00 O2 Del Method Room Air 08/10/25 14:00 BMI result Body Mass Index 36.5 Const: General: cooperative and no acute distress Nutritional Appearance: well nourished Orientation/consciousness: patient oriented x3 Limitations: no limitations HEENT: Head: Yes normocephalic and Yes atraumatic Ears: hearing grossly normal bilaterally Resp: Effort & Inspection: normal respiratory effort, no audible wheezes, no cough and no respiratory distress Cardio: Jugular venous distension: no JVD GI: Inspection: Yes normal to inspection and Yes distended Palpation (GI): Soft to palpation, Tenderness to palpation present (GI) in the LLQ and in the LUQ, no guarding and not rigid Percussion: Yes dullness to percussion Auscultation: Absent bowel sounds Rectal Exam - Male: Yes deferred Skin: Other: Warm, dry, no rash Neuro: General: patient oriented x3 Extrem: General: Yes no clubbing, cyanosis or edema Results Results Labs: Short CBC 08/10/25 Range/Units 09:46 WBC 17.1 H (4.8-10.8) X10*3/uL Hgb 17.4 (14.0-18.0) g/dl Hct 51.9 (42.0-52.0) % Plt Count 76 L (160-400) X10*3/uL BMP 08/10/25 09:46 Sodium 134 L Potassium 4.6 Chloride 101 Carbon Dioxide 23 BUN 56 H Creatinine 2.06 H Calcium 9.3 Liver Function 08/10/25 Range/Units 09:46 Total Bilirubin 1.8 H (0.0-1.0) mg/dL AST 30 (5-37) U/L ALT 48 H (0-40) U/L Alkaline Phosphatase 85 (39-117) U/L Albumin 4.3 (3.5-5.0) g/dL Urine 08/10/25 Range/Units 13:29 Urine Color Yellow Urine Appearance Clear Urine pH 5.5 (5.0-9.0) Ur Specific [place] >= 1.030 H (1.005-1.025) Urine Protein 30 (1+) H (Neg-Trace) mg/dL Urine Glucose (UA) 100 H (Negative) mg/dL Assessment and Plan (1) GALEN (acute kidney injury): Status: Acute (2) Sigmoid diverticulitis: Status: Deleted (3) Perforation of sigmoid colon due to diverticulitis: Status: Acute (4) Antiphospholipid syndrome: Status: Acute Plan 64-year-old male patient presenting with progressive increasing abdominal pain with distention and obstipation found on workup to have an elevated WBC, evidence of acute kidney injury and CT findings suggestive of perforated sigmoid diverticulitis with pneumoperitoneum. The patient is reasonably stable and only a small fluid collection is identified with no abscess. He may benefit from a trial of IV antibiotics over the next 24 hours. If his symptoms seemed to worsen however, he understands he may require surgical intervention most likely including a sigmoid colectomy and colostomy. I reviewed the relative risks and benefits and he is agreeable to admission for IV antibiotics. Quality Stroke Does the patient have a stroke diagnosis?: No VTE Prior VTE?: No VTE Risk Level:: Surgical - moderate VTE Device Contraindication: N/A - Device Ordered VTE Drug Contraindication: N/A - Med Ordered Procedures Date of Service Date of Service: 08/10/25
[2025-08-10] MEDS: Dextrose 5 % and Lactated Ring 1,000 ML 125 ML IVCONT ×2 (14:57→23:29)
--- NOTE | 2025-08-10 15:16 | P.CONHOSP_ITS ---
History of Present Illness Data of Consult Service Date: 08/10/25 Primary Care Provider: Jeremías Knox MD HPI 64-year-old man with multiple medical problems admitted by general surgery with 48 hours of abdominal pain and found to have perforated sigmoid diverticulitis with no definitive abscess. Patient was started on IV antibiotics, seen evaluated by General surgery. He is noted to have elevated white blood cell count 17.1. Plan is to admit patient for IV antibiotics and if no improvement shown patient may require surgery but plan will be as per general surgical team. Review of Systems 2 Review of Systems: Denies any recent fever chills or decrease in appetite respiratory denies any shortness of breath or cough cardiovascular denied chest pain gastrointestinal see HPI genitourinary denies any dysuria frequency or hematuria musculoskeletal denies any joint pain or swelling neuropsych denies any weakness or seizures all other systems reviewed are negative [facility] Medical History (Updated 08/10/25 @ 14:35 by Gallito Razo MD) Antiphospholipid syndrome Pyoderma gangrenosum Social History Household Members: Spouse Housing: House Do you presently have visiting nurse or other home services: No Patient Tobacco Use Status: Never used Tobacco Have you been hit, kicked, punched, or otherwise hurt by someone within the past year? If so, by whom?: No Do you feel safe in your current relationship?: No Current Relationship Is there a partner from a previous relationship who is making you feel unsafe now?: No Are you made to feel afraid or neglected: No Advance Directives: No Advance Directives Information Provided: Yes Advance Directives on File: No Do you have a plan to hurt others: No Plan Recently lost weight without trying: No Eating poorly because of decreased appetite: No Nutrition Risks: No Nutritional Risk Meds Allergies Allergy/AdvReac Type Severity Reaction Status Date / Time bacitracin Allergy Unknown Verified 08/10/25 09:38 celecoxib (From Celebrex) Allergy Unknown Verified 08/10/25 09:38 cephalexin (From Keflex) Allergy Unknown Verified 08/10/25 09:38 sulfacetamide (From Allergy Unknown Verified 08/10/25 09:38 Sulfamide) sulfamethoxazole (From Allergy Unknown Verified 08/10/25 09:38 Bactrim) trimethoprim (From Bactrim) Allergy Unknown Verified 08/10/25 09:38 Active Medications: Current Medications Calcium Carbonate (Calcium Carbonate 750 Mg Tab.Chew) 750 mg PO Q4H PRN PRN Reason: Heartburn Ceftriaxone Sodium (Ceftriaxone Sodium 1 Gm Vial) 1 gm IVPUSH Q12H [facility] Heparin Sodium (Porcine) (Heparin Sodium,Porcine 5,000 Unit/Ml Vial) 5,000 unit SUBCUT Q12H [facility] Last Admin: 08/10/25 14:55 Dose: 5,000 unit Hydromorphone HCl (Hydromorphone Hcl 0.5 Mg/0.5 Ml Syringe) 0.5 mg IVPUSH Q3H PRN; Protocol PRN Reason: Pain, Severe (Pain Scale 7-10) Last Admin: 08/10/25 14:57 Dose: 0.5 mg Acetaminophen (Ofirmev) 1,000 mg in 100 mls @ 400 mls/hr IV Q6H PRN PRN Reason: Pain, Mild (Pain Scale 1-3) Dextrose/Lactated Ringer's (D5lr) 1,000 mls @ 125 mls/hr IVCONT .Q8H [facility] Last Admin: 08/10/25 14:57 Dose: 125 mls/hr Metronidazole (Flagyl) 500 mg in 100 mls @ 100 mls/hr IV Q8H [facility] Magnesium Hydroxide (Milk Of Magnesia 30 Ml Oral.Susp) 30 ml PO DAILY PRN PRN Reason: Constipation Ondansetron HCl (Ondansetron Hcl 4 Mg/2 Ml Vial) 4 mg IVPUSH QID PRN PRN Reason: Nausea Last Admin: 08/10/25 14:59 Dose: 4 mg Sodium Chloride (0.9 % Sodium Chloride Flush 3 Ml Syringe) 3 ml IVFLUSH QSHIFT [facility] Zolpidem Tartrate (Zolpidem Tartrate 5 Mg Tablet) 5 mg PO BEDTIME PRN PRN Reason: Insomnia Home Medications ?Medication ?Instructions ?Recorded ?Confirmed ?Last Taken ?Type Tumeric 500 mg PO DAILY 08/10/25 Unknown History albuterol sulfate 90 mcg/actuation 2 inh inhalation Q6 H PRN Shortness 08/10/25 08/10/25 Unknown History breath activated powder inhaler Of Breath Or Wheezing cetirizine 10 mg tablet 10 mg PO DAILY 08/10/2507/29 Unknown History cholecalciferol (vitamin D3) 25 100 mcg PO DAILY 08/1008/10/25 Unknown History mcg (1,000 unit) chewable tablet (Vitamin D3) clobetasol 0.05 % topical cream 1 g topical DAILY 07/2908/10/25 Unknown History fluticasone propionate 50 1 spray intranasal DAILY PRN 08/10/25 08/10/25 Unknown History mcg/actuation nasal Allergy Symptoms spray,suspension furosemide 40 mg tablet 40 mg PO DAILY 08/10/2507/29 Unknown History losartan 100 mg tablet 100 mg PO DAILY 08/10/25 Unknown History omeprazole 20 mg capsule,delayed 20 mg PO SUTUTHSA@063 0 08/10/25 08/10/25 Unknown History release trazodone 50 mg tablet 50 mg PO DAILY PRN Insomnia 08/10/25 08/10/25 Unknown History warfarin 5 mg tablet 5 mg PO SUTUTHSA 08/10/25 Unknown History warfarin 5 mg tablet 10 mg PO MOWEFR 08/10/25 Unknown History Physical Exam 2 Vital Signs and Narrative: Vital Signs: Last Vital Signs Temp 98.9 F 08/10/25 14:00 Pulse 87 08/10/25 14:00 Resp 18 08/10/25 09:34 BP 125/72 08/10/25 14:00 Pulse Ox 98 08/10/25 14:00 O2 Del Method Room Air 08/10/25 14:00 BMI result Body Mass Index 36.5 Appearing in no acute distress head is normocephalic atraumatic eyes pupils are PERRLA sclera is anicteric mouth throat mucous membranes are intact and moist neck is supple no lymphadenopathy, no JVD noted lung sounds are clear to auscultation heart regular rate rhythm, clear S1, S2 hypoactive BS, abdomen is mild distension but not overt, nontender to palpation neuro patient is alert x3, no focal deficits Pyoderma skin wound to Left vickers, ankle area Results Labs 08/10/25 09:46 08/10/25 09:46 Labs: Laboratory Results - last 24 hr 08/10/25 08/10/25 08/10/25 09:46 11:00 12:05 MCV 88.6 MCH 29.7 MCHC 33.5 RDW 15.2 Plt Count 76 L MPV 9.9 Immature Gran % (Auto) 0.5 H Neut % (Auto) 85.3 H Lymph % (Auto) 9.2 L [place] % (Auto) 4.7 Eos % (Auto) 0.1 Baso % (Auto) 0.2 Lymph # (Auto) 1.6 [place] # (Auto) 0.8 Eos # (Auto) 0.0 Baso # (Auto) 0.0 Abs Immat Gran (auto) 0.09 H Absolute Neuts (auto) 14.6 H Absolute Nucleated RBC 0.000 Nucleated RBC % (auto) 0.0 PT 41.7 H INR 3.6 H Anion Gap 15 Estim Creat Clear Calc 44.4 Estimated GFR 33 Random Glucose 129 H Lactic Acid 0.7 Calcium 9.3 Total Bilirubin 1.8 H AST 30 ALT 48 H Alkaline Phosphatase 85 Total Protein 7.8 Albumin 4.3 Lipase 27 Urine Color Urine Appearance Urine pH Ur Specific [place] Urine Protein Urine Glucose (UA) Urine Ketones Urine Blood Urine Nitrite Ur Leukocyte Esterase Urine RBC Urine WBC Ur Squamous Epith Cells Urine Bacteria Hyaline Casts 08/10/25 13:29 MCV MCH MCHC RDW Plt Count MPV Immature Gran % (Auto) Neut % (Auto) Lymph % (Auto) [place] % (Auto) Eos % (Auto) Baso % (Auto) Lymph # (Auto) [place] # (Auto) Eos # (Auto) Baso # (Auto) Abs Immat Gran (auto) Absolute Neuts (auto) Absolute Nucleated RBC Nucleated RBC % (auto) PT INR Anion Gap Estim Creat Clear Calc Estimated GFR Random Glucose Lactic Acid Calcium Total Bilirubin AST ALT Alkaline Phosphatase Total Protein Albumin Lipase Urine Color Yellow Urine Appearance Clear Urine pH 5.5 Ur Specific [place] >= 1.030 H Urine Protein 30 (1+) H Urine Glucose (UA) 100 H Urine Ketones Negative Urine Blood Negative Urine Nitrite Negative Ur Leukocyte Esterase Negative Urine RBC 0-2 Urine WBC 0-5 Ur Squamous Epith Cells 0-2 Urine Bacteria None Seen Hyaline Casts 0-2 Assessment and Plan (1) Antiphospholipid syndrome: Status: Acute Plan 64-year-old man admitted with perforated diverticulitis Perforated diverticulitis with SBO on imaging Management as per surgical team NPO IV fluids IV antibiotics Patient denied nausea and vomiting at this time, no NGT at this time as per surgical team, monitor closely GALEN poor po intake continue IV fluids recheck BMP in am History of antiphospholipid disorder On warfarin, hold for today in light of General surgery monitoring for the case that he may require surgery If patient will require prolonged time off warfarin, consider IV heparin History of pyoderma Patient's spouse has a wound care nurse and manages his wounds wound nurse consult Asthma No acute exacerbation Albuterol as needed Hypertension Stable to mildly elevated blood pressure Continue losartan, furosemide DVT prophylaxis pneumatic compression boots Full code Medical consultation complete. We will follow along antiphospholipid syndrome antiphospholipid syndrome
--- NOTE | 2025-08-10 15:29 | HO.NURTONUR ---
Addendum entered by Dorota Brennan RN 08/10/25 15:33: Pharmacy staff at bedside for [facility] Rec at this time. Original Note: 64 yr male admitted for perforated sigmoid colon d/t diverticulitis and GALEN. Pt comes to ED today with ongoing abd pain and n/v. Pain /10 starting yesterday. A&Ox3, VSS Pt is independent with feedings and ambulation but uses bedside urinal d/t pain. 20g R hand. D5LR running at 125ml/hr. NPO status Seen by surgery for consult today.
[2025-08-10 16:32] VITALS: BMI 38.0
[2025-08-10 16:45] VITALS: BP 160/87; PULSE 103; RESP 18; TEMP 37; O2SAT 97
[2025-08-10 19:37] VITALS: BP 162/91; PULSE 96; RESP 20; TEMP 37.9; O2SAT 96
[2025-08-10 23:24] VITALS: BP 141/75; PULSE 87; RESP 18; TEMP 37.2; O2SAT 95
[2025-08-11 03:14] VITALS: BP 140/80; PULSE 83; RESP 18; TEMP 36.5; O2SAT 95
[2025-08-11] MEDS: metroNIDAZOLE/NS 500 MG/100 ML PIGGYBACK 100 MG IV ×3 (03:56→19:38)
--- NOTE | 2025-08-11 04:22 | PC.NURSE ---
2128: Pt stating feels constipated. PRN orders for Milk of Mag but due to NPO status not given. Provider [place] notified and ordered suppository. Pt refused suppository at this time.
[2025-08-11 06:15] LABS: MANUAL DIFF FLAG NO
[2025-08-11 06:23] LABS: Hematocrit 48.8 % (42.0-52.0); Hemoglobin 15.9 g/dl (14.0-18.0); Imm Gran Abs Auto 0.12 X10*3/uL (0.00-0.03); Imm Gran Pct Auto 0.7 % (0.0-0.4); Lymphocytes Absolute Auto 0.9 X10*3/uL (1.2-4.9); Mean Corpuscular HGB Conc 32.6 g/dl (31.0-36.0); Mean Corpuscular Hemoglobin 30.0 pg (27.0-33.0); Mean Corpuscular Volume 92.1 fL (80.0-98.0); NRBC Abs Auto 0.000 X10*3/uL (0.0-0.012); NRBC Pct Auto 0.0 /100WBC (0.0-0.2); Red Blood Count 5.30 X10*6/uL (4.60-5.80); White Blood Count 16.8 X10*3/uL (4.8-10.8)
[2025-08-11 06:28] LABS: Platelet Count 60 X10*3/uL (160-400)
[2025-08-11 06:41] LABS: Alanine Aminotransferase 30 U/L (0-40); Albumin Level 3.5 g/dL (3.5-5.0); Anion Gap 15 (12-20); Aspartate Amino Transferase 21 U/L (5-37); Blood Urea Nitrogen 43 mg/dL (9-16); Calcium 8.7 mg/dL (8.4-10.2); Carbon Dioxide 23 mmol/L (22-29); Chloride 105 mmol/L (96-108); Creatinine Clr Calc Pharmacy 57.7; Estimated Glomerular Filt Rate 43; Potassium 4.4 mmol/L (3.3-5.1); Sodium 139 mmol/L (135-145); Total Protein 6.8 g/dL (6.5-8.0)
[2025-08-11 06:48] LABS: Alkaline Phosphatase 82 U/L (39-117)
--- NOTE | 2025-08-11 07:38 | PM.PNGS ---
Subjective Subjective Date of Service: 08/11/25 <Trish Bolden PA-C - Last Filed: 08/11/25 07:43> 08/11/25 <Gallito Razo MD - Last Filed: 08/11/25 10:00> Interval history: Feels as if the pain has minimally improved but unsure if this is due to pain meds, did not have a good night in regards to sleep. No BM since , denies significant flatus in the past couple of days. <Trish Bolden PA-C - Last Filed: 08/11/25 07:43> Physical Exam Vital Signs: Vital Signs: Last Vital Signs Temp 97.7 F 08/11/25 03:14 Pulse 83 08/11/25 03:14 Resp 18 08/11/25 03:14 BP 140/80 H 08/11/25 03:14 Pulse Ox 95 08/11/25 03:14 O2 Del Method Room Air 08/11/25 03:14 BMI result Body Mass Index 38.0 <Trish Bolden PA-C - Last Filed: 08/11/25 07:43> Const: Other: uncomfortable appearing with movement <Trish Bolden PA-C - Last Filed: 08/11/25 07:43> General: no acute distress and alert <JEFFREY Mcdonald Last Filed: 08/11/25 07:43> Orientation/consciousness: patient oriented x3 <JEFFREY Mcdonald Last Filed: 08/11/25 07:43> Resp: Effort & Inspection: normal respiratory effort, able to speak in complete sentences and not tachypneic <Trish Bolden PA-C - Last Filed: 08/11/25 07:43> GI: Other: distended and tympanitic but soft remains markedly tender in the left mid abdomen <JEFFREY cMdonald Last Filed: 08/11/25 07:43> Palpation (GI): no guarding and not rigid <JEFFREY Mcdonald Last Filed: 08/11/25 07:43> Skin: Other: warm and dry dry and intact LLE dressing <JEFFREY Mcdonald Last Filed: 08/11/25 07:43> Neuro: General: patient oriented x3 and moves all extremities <Trish Bolden PA-C - Last Filed: 08/11/25 07:43> Objective Data Active Medications Albuterol Sulfate (Albuterol Sulfate 90 Mcg 8 Gm Inhaler) 2 puff INHALE RQ6H PRN PRN Reason: Shortness Of Breath Or Wheezing Calcium Carbonate (Calcium Carbonate 750 Mg Tab.Chew) 750 mg PO Q4H PRN PRN Reason: Heartburn Ceftriaxone Sodium (Ceftriaxone Sodium 1 Gm Vial) 1 gm IVPUSH Q12H JONATHAN Heparin Sodium (Porcine) (Heparin Sodium,Porcine 5,000 Unit/Ml Vial) 5,000 unit SUBCUT Q12H [facility] Last Admin: 08/11/25 02:02 Dose: 5,000 unit Documented By: YANCI Hydromorphone HCl (Hydromorphone Hcl 0.5 Mg/0.5 Ml Syringe) 0.5 mg IVPUSH Q3H PRN; Protocol PRN Reason: Pain, Severe (Pain Scale 7-10) Last Admin: 08/11/25 06:33 Dose: 0.5 mg Documented By: YANCI Acetaminophen (Ofirmev) 1,000 mg in 100 mls @ 400 mls/hr IV Q6H PRN PRN Reason: Pain, Mild (Pain Scale 1-3) Last Infusion: 08/10/25 21:45 Dose: Infused Documented By: YANCI Dextrose/Lactated Ringer's (D5lr) 1,000 mls @ 125 mls/hr IVCONT .Q8H [facility] Last Infusion: 08/11/25 04:58 Dose: 125 mls/hr Documented By: YANCI Metronidazole (Flagyl) 500 mg in 100 mls @ 100 mls/hr IV Q8H [facility] Last Infusion: 08/11/25 04:56 Dose: Infused Documented By: YANCI Magnesium Hydroxide (Milk Of Magnesia 30 Ml Oral.Susp) 30 ml PO DAILY PRN PRN Reason: Constipation Ondansetron HCl (Ondansetron Hcl 4 Mg/2 Ml Vial) 4 mg IVPUSH QID PRN PRN Reason: Nausea Last Admin: 08/11/25 03:17 Dose: 4 mg Documented By: YANCI Sodium Chloride (0.9 % Sodium Chloride Flush 3 Ml Syringe) 3 ml IVFLUSH QSHIFT [facility] Last Admin: 08/11/25 01:08 Dose: Not Given Documented By: YANCI Non-Admin Reason: IV Running Trazodone HCl (Trazodone Hcl 50 Mg Tablet) 50 mg PO DAILY PRN PRN Reason: Insomnia Zolpidem Tartrate (Zolpidem Tartrate 5 Mg Tablet) 5 mg PO BEDTIME PRN PRN Reason: Insomnia <Trish Bolden PA-C - Last Filed: 08/11/25 07:43> Labs CBC & Chem 7: 08/11/25 05:34 08/11/25 05:34 <Trish Bolden PA-C - Last Filed: 08/11/25 07:43> Labs: Laboratory Results - last 24 hr 08/10/25 08/10/25 08/10/25 09:46 11:00 12:05 MCV 88.6 MCH 29.7 MCHC 33.5 RDW 15.2 Plt Count 76 L MPV 9.9 Immature Gran % (Auto) 0.5 H Neut % (Auto) 85.3 H Lymph % (Auto) 9.2 L [place] % (Auto) 4.7 Eos % (Auto) 0.1 Baso % (Auto) 0.2 Lymph # (Auto) 1.6 Hart # (Auto) 0.8 Eos # (Auto) 0.0 Baso # (Auto) 0.0 Abs Immat Gran (auto) 0.09 H Absolute Neuts (auto) 14.6 H Absolute Nucleated RBC 0.000 Nucleated RBC % (auto) 0.0 PT 41.7 H INR 3.6 H Anion Gap 15 Estim Creat Clear Calc 44.4 Estimated GFR 33 Random Glucose 129 H Lactic Acid 0.7 Calcium 9.3 Total Bilirubin 1.8 H AST 30 ALT 48 H Alkaline Phosphatase 85 Total Protein 7.8 Albumin 4.3 Lipase 27 Urine Color Urine Appearance Urine pH Ur Specific [place] Urine Protein Urine Glucose (UA) Urine Ketones Urine Blood Urine Nitrite Ur Leukocyte Esterase Urine RBC Urine WBC Ur Squamous Epith Cells Urine Bacteria Hyaline Casts 08/10/25 08/11/25 13:29 05:34 MCV 92.1 MCH 30.0 MCHC 32.6 RDW 15.2 Plt Count 60 L MPV 9.7 Immature Gran % (Auto) 0.7 H Neut % (Auto) 89.1 H Lymph % (Auto) 5.4 L [place] % (Auto) 4.1 Eos % (Auto) 0.2 Baso % (Auto) 0.5 Lymph # (Auto) 0.9 L [place] # (Auto) 0.7 Eos # (Auto) 0.0 Baso # (Auto) 0.1 Abs Immat Gran (auto) 0.12 H Absolute Neuts (auto) 14.9 H Absolute Nucleated RBC 0.000 Nucleated RBC % (auto) 0.0 PT INR Anion Gap 15 Estim Creat Clear Calc 57.7 Estimated GFR 43 Random Glucose 133 H Lactic Acid Calcium 8.7 D Total Bilirubin 1.7 H AST 21 ALT 30 Alkaline Phosphatase 82 Total Protein 6.8 Albumin 3.5 Lipase Urine Color Yellow Urine Appearance Clear Urine pH 5.5 Ur Specific [place] >= 1.030 H Urine Protein 30 (1+) H Urine Glucose (UA) 100 H Urine Ketones Negative Urine Blood Negative Urine Nitrite Negative Ur Leukocyte Esterase Negative Urine RBC 0-2 Urine WBC 0-5 Ur Squamous Epith Cells 0-2 Urine Bacteria None Seen Hyaline Casts 0-2 <Trish Bolden PA-C - Last Filed: 08/11/25 07:43> Procedures Date of Service Date of Service: 08/11/25 <Trish Bolden PA-C - Last Filed: 08/11/25 07:43> 08/11/25 <Gallito Razo MD - Last Filed: 08/11/25 10:00> Progress Note: A&P Assessment and plan (1) Perforation of sigmoid colon due to diverticulitis: Status: Acute <Trish Bolden PA-C - Last Filed: 08/11/25 07:43> (2) Pyoderma gangrenosum: Status: Acute <Trish Bolden PA-C - Last Filed: 08/11/25 07:43> Assessment and Plan: Minimal improvement with IV abx, remains markedly tender on exam on the left and distended. WBC virtually unchanged. May also have tethering of small bowel causing some degree of obstruction. Will obtain CT scan abd pelvis to reassess the amount of free air. Discussed if it is increasing, we will need to proceed with surgical intervention. Cont NPO status, IV abx, IVF, pain control for now. Follow closely. Will likely need heparin bridge for coumadin. Will discuss with hospitalist. <Trish Bolden PA-C - Last Filed: 08/11/25 07:43> Minimal improvement with IV abx, remains markedly tender on exam on the left and distended. WBC virtually unchanged. May also have tethering of small bowel causing some degree of obstruction. Will obtain CT scan abd pelvis to reassess the amount of free air. Discussed if it is increasing, we will need to proceed with surgical intervention. Cont NPO status, IV abx, IVF, pain control for now. Follow closely. Will likely need heparin bridge for coumadin. Will discuss with hospitalist. Patient seen and examined. Agree with the above assessment and plan. He is marginally improved but still quite distended and tympanitic. WBC remains elevated. Stat CT pending. Discussed the possibility of needing exploratory laparotomy, sigmoid colectomy, possible colostomy. We will await CT findings. <Gallito Razo MD - Last Filed: 08/11/25 10:00> Time Spent With Patient Time: Total time managing care of this patient today ____ minutes. <Trish Bolden PA-C - Last Filed: 08/11/25 07:43> Quality Stroke Does the patient have a stroke diagnosis?: No <Trish Bolden PA-C - Last Filed: 08/11/25 07:43> VTE Prior VTE?: No <Trish Bolden PA-C - Last Filed: 08/11/25 07:43> VTE Risk Level:: Surgical - moderate <Trish Bolden PA-C - Last Filed: 08/11/25 07:43> VTE Device Contraindication: N/A - Device Ordered <Trish Bolden PA-C - Last Filed: 08/11/25 07:43> VTE Drug Contraindication: N/A - Med Ordered <Trish Bolden PA-C - Last Filed: 08/11/25 07:43>
[2025-08-11] MEDS: Dextrose 5 % and Lactated Ring 1,000 ML 125 ML IVCONT ×2 (07:46→17:10)
[2025-08-11] MEDS: iohexoL 350 MG/ML 100 ML INFUS..BTL IV (11:16)
[2025-08-11 11:25] VITALS: BP 140/82; PULSE 84; RESP 20; TEMP 36.6; O2SAT 96
--- NOTE | 2025-08-11 11:55 | MHC.CM.PN ---
CM MET WITH PT AT BEDSIDE. PT LIVES WITH S/O AND IS FUNCTIONALLY INDEPENDENT/EMPLOYED. NO SERVICES OR DME. + HCP PCP ALMA MARINO DP: HOME, NO SERVICES IS THE GOAL. PT'S S/O WILL TRANSPORT. 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 CM WILL CONTINUE TO FOLLOW FOR ANY CHANGE TO DC PLAN/NEEDS.
--- NOTE | 2025-08-11 12:01 | PM.EVENT ---
Event Note Date of Service: 08/11/25 Event Note: Repeat CT reviewed. Appears no worse with possibly slightly less free air noted. Residual fluid collection remains in the left lower quadrant adjacent to the sigmoid colon with diverticulitis. No evidence of abscess. Results reviewed with the patient and spouse. Overall he feels improved this afternoon in his noticing some bowel activity. Does report some nausea; will increase Zofran to q.6 hours PRN nausea vomiting. Time Spent With Patient Time: Total time managing care of this patient today ____ minutes.
[2025-08-11 12:40] LABS: Hematocrit 46.4 % (42.0-52.0); Hemoglobin 15.2 g/dl (14.0-18.0); Mean Corpuscular HGB Conc 32.8 g/dl (31.0-36.0); Mean Corpuscular Hemoglobin 29.8 pg (27.0-33.0); Mean Corpuscular Volume 91.0 fL (80.0-98.0); NRBC Abs Auto 0.000 X10*3/uL (0.0-0.012); NRBC Pct Auto 0.0 /100WBC (0.0-0.2); Red Blood Count 5.10 X10*6/uL (4.60-5.80); White Blood Count 16.5 X10*3/uL (4.8-10.8)
[2025-08-11 12:41] LABS: Platelet Count 58 X10*3/uL (160-400)
[2025-08-11 12:48] LABS: INTERNATIONAL NORM RATIO 1.7 (0.9-1.1); Prothrombin Time 19.3 SEC (10.9-12.4)
[2025-08-11 12:51] LABS: PTT Heparin Drip 34.0 SEC (53-77.9)
[2025-08-11 12:55] VITALS: BMI 37.3
[2025-08-11 15:25] VITALS: BP 130/72; PULSE 80; RESP 20; TEMP 36.7; O2SAT 95
[2025-08-11 16:43] VITALS: TEMP 37.7
[2025-08-11] MEDS: Heparin Sodium,Porcine/1/2NS 25,000 UNIT/250 ML IV.SOLN 15.6 UNIT IVCONT (16:54)
[2025-08-11] MEDS: 0.9 % Sodium Chloride Flush 3 ML SYRINGE IVFLUSH (17:14)
--- NOTE | 2025-08-11 18:35 | HO.PM.IMPN ---
Subjective Subjective Date of Service: 08/11/25 Interval History: Persistent abdominal distention reported by patient. Passing gas. No significant tenderness otherwise. Patient recounts background history including history of APLS, diagnosed after taking a course of Bactrim in 1992. Possible element of lupus overlapping. Suffered with a pyoderma gangrenosum post diagnosis of APLS. Review of Systems Review of Systems: Yes all other systems are reviewed and are negative Physical Exam Exam: Exam: General: A&O x3, oriented to time place person and situation, comfortable, no pain Cardiac: S1, S2 auscultated with no S3/4, no MRG. Well perfused. Respiratory: Normal breath sounds auscultated throughout all lung zones, without wheezing, rales. Normal rate. GI/ : Abdominal distention noted generalized that tenderness on palpation, hyper resonant on percussion MSK: Normal ambulation without pain at bony prominences or musculature. Lower extremity hyperpigmentation of skin, with raised areas, some wrapped. Neurological: Normal neurological examination on overview, without obvious CN II-XII abnormalities. Vital Signs: Vital Signs: Last Vital Signs Temp 99.8 F 08/11/25 16:43 Pulse 80 08/11/25 15:25 Resp 20 08/11/25 15:25 BP 130/72 08/11/25 15:25 Pulse Ox 95 08/11/25 15:25 O2 Del Method Room Air 08/11/25 15:25 BMI result Body Mass Index 37.3 Objective Data Active Medications Albuterol Sulfate (Albuterol Sulfate 90 Mcg 8 Gm Inhaler) 2 puff INHALE RQ6H PRN PRN Reason: Shortness Of Breath Or Wheezing Calcium Carbonate (Calcium Carbonate 750 Mg Tab.Chew) 750 mg PO Q4H PRN PRN Reason: Heartburn Ceftriaxone Sodium (Ceftriaxone Sodium 1 Gm Vial) 1 gm IVPUSH Q12H [facility] Last Admin: 08/11/25 12:08 Dose: 1 gm Documented By: PATTI Heparin Sodium (Porcine) (Heparin Sodium,Porcine 5,000 Unit/Ml Vial) 4,500 unit 40 unit/kg (4500 unit) IVPUSH PROTOCOL BOLUS PRN; Protocol PRN Reason: 40 unit/kg - Heparin Protocol Heparin Sodium (Porcine) (Heparin Sodium,Porcine 5,000 Unit/Ml Vial) 8,900 unit 80 unit/kg (8900 unit) IVPUSH PROTOCOL BOLUS PRN; Protocol PRN Reason: 80 unit/kg - Heparin Protocol Hydromorphone HCl (Hydromorphone Hcl 0.5 Mg/0.5 Ml Syringe) 0.5 mg IVPUSH Q3H PRN; Protocol PRN Reason: Pain, Severe (Pain Scale 7-10) Last Admin: 08/11/25 16:40 Dose: 0.5 mg Documented By: ELIZA Acetaminophen (Ofirmev) 1,000 mg in 100 mls @ 400 mls/hr IV Q6H PRN PRN Reason: Pain, Mild (Pain Scale 1-3) Last Infusion: 08/11/25 17:26 Dose: Infused Documented By: PATTI Dextrose/Lactated Ringer's (D5lr) 1,000 mls @ 125 mls/hr IVCONT .Q8H [facility] Last Admin: 08/11/25 17:10 Dose: 125 mls/hr Documented By: PATTI Metronidazole (Flagyl) 500 mg in 100 mls @ 100 mls/hr IV Q8H [facility] Last Infusion: 08/11/25 13:08 Dose: Infused Documented By: PATTI Heparin Sodium/Sodium Chloride (Heparin Sodium,Porcine/1/2ns) 25,000 unit in 250 mls @ 0 mls/hr IVCONT .Q0M [facility]; Protocol Last Admin: 08/11/25 16:54 Dose: 14 units/kg/hr, 15.6 mls/hr Documented By: PATTI Co-signed By: ELIZA Magnesium Hydroxide (Milk Of Magnesia 30 Ml Oral.Susp) 30 ml PO DAILY PRN PRN Reason: Constipation Ondansetron HCl (Ondansetron Hcl 4 Mg/2 Ml Vial) 4 mg IVPUSH QID PRN PRN Reason: Nausea Last Admin: 08/11/25 12:16 Dose: 4 mg Documented By: PATTI Sodium Chloride (0.9 % Sodium Chloride Flush 3 Ml Syringe) 3 ml IVFLUSH QSHIFT [facility] Last Admin: 08/11/25 17:14 Dose: 3 ml Documented By: PATTI Trazodone HCl (Trazodone Hcl 50 Mg Tablet) 50 mg PO DAILY PRN PRN Reason: Insomnia Zolpidem Tartrate (Zolpidem Tartrate 5 Mg Tablet) 5 mg PO BEDTIME PRN PRN Reason: Insomnia Labs 08/11/25 12:25 08/11/25 05:34 Labs: Laboratory Results - last 24 hr 08/11/25 08/11/25 05:34 12:25 MCV 92.1 91.0 MCH 30.0 29.8 MCHC 32.6 32.8 RDW 15.2 15.0 Plt Count 60 L 58 L MPV 9.7 9.4 Immature Gran % (Auto) 0.7 H Neut % (Auto) 89.1 H Lymph % (Auto) 5.4 L [place] % (Auto) 4.1 Eos % (Auto) 0.2 Baso % (Auto) 0.5 Lymph # (Auto) 0.9 L [place] # (Auto) 0.7 Eos # (Auto) 0.0 Baso # (Auto) 0.1 Abs Immat Gran (auto) 0.12 H Absolute Neuts (auto) 14.9 H Absolute Nucleated RBC 0.000 0.000 Nucleated RBC % (auto) 0.0 0.0 PT 19.3 H D INR 1.7 H aPTT Heparin Protocol 34.0 L Anion Gap 15 Estim Creat Clear Calc 57.7 Estimated GFR 43 Random Glucose 133 H Calcium 8.7 D Total Bilirubin 1.7 H AST 21 ALT 30 Alkaline Phosphatase 82 Total Protein 6.8 Albumin 3.5 Microbiology Microbiology Results: Microbiology 08/10/25 12:12 Blood Culture - Preliminary Blood - Venous No growth after 24 hours. 08/10/25 12:05 Blood Culture - Preliminary Blood - Venous No growth after 24 hours. Assessment and Plan (1) Antiphospholipid syndrome: Status: Acute (2) Perforation of sigmoid colon due to diverticulitis: Status: Acute (3) Abdominal pain: Status: Acute (4) Pneumoperitoneum: Status: Acute (5) GALEN (acute kidney injury): Status: Acute (6) Pyoderma gangrenosum: Status: Acute Plan 64-year-old male, with a background history of antiphospholipid syndrome on warfarin (compliant), pyoderma gangrenosum bilateral lower extremities, HTN, asthma, presents to the hospital with complaints of abdominal distention and pain, admitted with perforated diverticulitis with SBO by surgical service. Medicine following for recommendations. Perforated diverticulitis SBO Management as per surgical team - opting for conservative course. No nausea and vomiting. Passing flatus, and patient reports feeling improved as compared to yesterday. Continue to monitor closely. NPO IV fluids IV antibiotics Prerenal GALEN poor po intake/ dehydration continue IV fluids recheck BMP in am Antiphospholipid syndrome on anticoagulation (warfarin) Patient compliant with warfarin at home, with goal INR 2-3 goal INR for antiphospholipid syndrome Given the patient's admission for SBO, and possibility for surgical intervention, warfarin was held. INR 1.7. Started on heparin drip Given abdominal symptomology, C3, C4, FELISA and double-stranded DNA were ordered for further evaluation Pyoderma gangrenosum Patient's spouse has a wound care nurse and manages his wounds wound nurse consult Asthma No acute exacerbation Albuterol as needed Hypertension Stable to mildly elevated blood pressure Continue losartan, furosemide Total time managing care of this patient today: 35 minutes. Quality Stroke Does the patient have a stroke diagnosis?: No VTE Prior VTE?: No VTE Risk Level:: Surgical - moderate VTE Device Contraindication: N/A - Device Ordered VTE Drug Contraindication: N/A - Med Ordered
[2025-08-11 20:00] VITALS: BP 153/86; PULSE 78; RESP 20; TEMP 36.8; O2SAT 95
[2025-08-11 23:12] VITALS: BP 142/77; PULSE 80; RESP 18; TEMP 36.6; O2SAT 95
[2025-08-12 00:12] LABS: PTT Heparin Drip 50.4 SEC (53-77.9)
[2025-08-12] MEDS: Dextrose 5 % and Lactated Ring 1,000 ML 125 ML IVCONT ×3 (02:43→21:38)
[2025-08-12 03:29] VITALS: BP 139/76; PULSE 82; RESP 18; TEMP 37.7; O2SAT 99
[2025-08-12] MEDS: metroNIDAZOLE/NS 500 MG/100 ML PIGGYBACK 100 MG IV ×3 (04:03→19:43)
[2025-08-12 06:18] LABS: MANUAL DIFF FLAG NO
[2025-08-12 06:18] LABS: MANUAL DIFF FLAG NO
[2025-08-12 06:23] LABS: Hematocrit 42.8 % (42.0-52.0); Hemoglobin 14.2 g/dl (14.0-18.0); Imm Gran Abs Auto 0.12 X10*3/uL (0.00-0.03); Imm Gran Pct Auto 1.0 % (0.0-0.4); Lymphocytes Absolute Auto 0.9 X10*3/uL (1.2-4.9); Mean Corpuscular HGB Conc 33.2 g/dl (31.0-36.0); Mean Corpuscular Hemoglobin 30.1 pg (27.0-33.0); Mean Corpuscular Volume 90.7 fL (80.0-98.0); NRBC Abs Auto 0.000 X10*3/uL (0.0-0.012); NRBC Pct Auto 0.0 /100WBC (0.0-0.2); Red Blood Count 4.72 X10*6/uL (4.60-5.80); White Blood Count 12.6 X10*3/uL (4.8-10.8)
[2025-08-12 06:24] LABS: Platelet Count 60 X10*3/uL (160-400)
[2025-08-12 06:24] LABS: Hematocrit 44.3 % (42.0-52.0); Hemoglobin 14.2 g/dl (14.0-18.0); Imm Gran Abs Auto 0.10 X10*3/uL (0.00-0.03); Imm Gran Pct Auto 0.8 % (0.0-0.4); Lymphocytes Absolute Auto 0.8 X10*3/uL (1.2-4.9); Mean Corpuscular HGB Conc 32.1 g/dl (31.0-36.0); Mean Corpuscular Hemoglobin 29.6 pg (27.0-33.0); Mean Corpuscular Volume 92.3 fL (80.0-98.0); NRBC Abs Auto 0.000 X10*3/uL (0.0-0.012); NRBC Pct Auto 0.0 /100WBC (0.0-0.2); Red Blood Count 4.80 X10*6/uL (4.60-5.80); White Blood Count 12.8 X10*3/uL (4.8-10.8)
[2025-08-12 06:25] LABS: Platelet Count 62 X10*3/uL (160-400)
[2025-08-12] MEDS: Heparin Sodium,Porcine/1/2NS 25,000 UNIT/250 ML IV.SOLN 17.82 UNIT IVCONT ×2 (06:29→20:53)
[2025-08-12 06:34] LABS: INTERNATIONAL NORM RATIO 1.3 (0.9-1.1); Prothrombin Time 15.2 SEC (10.9-12.4)
[2025-08-12 06:37] LABS: PTT Heparin Drip 62.2 SEC (53-77.9)
[2025-08-12 06:40] LABS: Alanine Aminotransferase 25 U/L (0-40); Albumin Level 3.1 g/dL (3.5-5.0); Alkaline Phosphatase 74 U/L (39-117); Anion Gap 13 (12-20); Aspartate Amino Transferase 24 U/L (5-37); Blood Urea Nitrogen 35 mg/dL (9-16); Calcium 8.6 mg/dL (8.4-10.2); Carbon Dioxide 21 mmol/L (22-29); Chloride 108 mmol/L (96-108); Creatinine Clr Calc Pharmacy 60.2; Estimated Glomerular Filt Rate 46; Potassium 4.2 mmol/L (3.3-5.1); Sodium 138 mmol/L (135-145); Total Protein 6.2 g/dL (6.5-8.0)
[2025-08-12 07:26] VITALS: BP 143/87; PULSE 79; RESP 22; TEMP 37.1; O2SAT 95
[2025-08-12] MEDS: 0.9 % Sodium Chloride Flush 3 ML SYRINGE IVFLUSH ×2 (08:19→19:44)
--- NOTE | 2025-08-12 08:37 | PC.NURSE ---
PTT-HD 62.2 ,Heparin drip is infusing at 16 units/kg/hr,no change made,Allyn charge nurse is a witness
--- NOTE | 2025-08-12 08:46 | P.PNGS_ITS ---
Subjective Subjective Date of Service: 08/12/25 Interval history: He thinks he is overall improved in regards to the severity of the pain. Pain better overall than presentation. Still had a difficult night with sleeping due to vitals and blood draws with the heparin drip. No flatus or BM yet. Reports belching and some nausea, unchanged. OOB and ambulating. Physical Exam 2 Vital Signs: Vital Signs: Last Vital Signs Temp 98.7 F 08/12/25 07:26 Pulse 79 08/12/25 07:26 Resp 22 H 08/12/25 07:26 BP 143/87 H 08/12/25 07:26 Pulse Ox 95 08/12/25 07:26 O2 Del Method Room Air 08/12/25 07:26 BMI result Body Mass Index 37.3 Const: General: comfortable, no acute distress and alert O rientation/consciousness: patient oriented x3 Resp: Effort & Inspection: normal respiratory effort, able to speak in complete sentences and not labored GI: Other: distended and tympanitic but soft remains tender in the left mid/lower abdomen, slightly improved Skin: General skin exam: no rashes or lesions noted Neuro: General: patient oriented x3 and moves all extremities Objective Data Active Medications Albuterol Sulfate (Albuterol Sulfate 90 Mcg 8 Gm Inhaler) 2 puff INHALE RQ6H PRN PRN Reason: Shortness Of Breath Or Wheezing Calcium Carbonate (Calcium Carbonate 750 Mg Tab.Chew) 750 mg PO Q4H PRN PRN Reason: Heartburn Ceftriaxone Sodium (Ceftriaxone Sodium 1 Gm Vial) 1 gm IVPUSH Q12H [facility] Last Admin: 08/12/25 00:37 Dose: 1 gm Documented By: YANCI Heparin Sodium (Porcine) (Heparin Sodium,Porcine 5,000 Unit/Ml Vial) 4,500 unit 40 unit/kg (4500 unit) IVPUSH PROTOCOL BOLUS PRN; Protocol PRN Reason: 40 unit/kg - Heparin Protocol Last Admin: 08/12/25 00:33 Dose: 4,500 unit Documented By: YANCI Heparin Sodium (Porcine) (Heparin Sodium,Porcine 5,000 Unit/Ml Vial) 8,900 unit 80 unit/kg (8900 unit) IVPUSH PROTOCOL BOLUS PRN; Protocol PRN Reason: 80 unit/kg - Heparin Protocol Hydromorphone HCl (Hydromorphone Hcl 0.5 Mg/0.5 Ml Syringe) 0.5 mg IVPUSH Q3H PRN; Protocol PRN Reason: Pain, Severe (Pain Scale 7-10) Last Admin: 08/12/25 08:16 Dose: 0.5 mg Documented By: JACQUELYN Acetaminophen (Ofirmev) 1,000 mg in 100 mls @ 400 mls/hr IV Q6H PRN PRN Reason: Pain, Mild (Pain Scale 1-3) Last Infusion: 08/11/25 17:26 Dose: Infused Documented By: PATTI Dextrose/Lactated Ringer's (D5lr) 1,000 mls @ 125 mls/hr IVCONT .Q8H [facility] Last Admin: 08/12/25 08:18 Dose: Not Given Documented By: JACQUELYN Non-Admin Reason: IV Running Metronidazole (Flagyl) 500 mg in 100 mls @ 100 mls/hr IV Q8H [facility] Last Infusion: 08/12/25 05:10 Dose: Infused Documented By: YANCI Heparin Sodium/Sodium Chloride (Heparin Sodium,Porcine/1/2ns) 25,000 unit in 250 mls @ 0 mls/hr IVCONT .Q0M [facility]; Protocol Last Admin: 08/12/25 06:29 Dose: 14.36 units/kg/hr, 16 mls/hr Documented By: YANCI Co-signed By: JEWEL Magnesium Hydroxide (Milk Of Magnesia 30 Ml Oral.Susp) 30 ml PO DAILY PRN PRN Reason: Constipation Ondansetron HCl (Ondansetron Hcl 4 Mg/2 Ml Vial) 4 mg IVPUSH QID PRN PRN Reason: Nausea Last Admin: 08/12/25 04:00 Dose: 4 mg Documented By: YANCI Sodium Chloride (0.9 % Sodium Chloride Flush 3 Ml Syringe) 3 ml IVFLUSH QSHIFT [facility] Last Admin: 08/12/25 08:19 Dose: 3 ml Documented By: JACQUELYN Trazodone HCl (Trazodone Hcl 50 Mg Tablet) 50 mg PO DAILY PRN PRN Reason: Insomnia Zolpidem Tartrate (Zolpidem Tartrate 5 Mg Tablet) 5 mg PO BEDTIME PRN PRN Reason: Insomnia Labs 08/12/25 05:50 08/12/25 05:49 Labs: Laboratory Results - last 24 hr 08/11/25 08/11/25 08/12/25 12:25 23:47 05:49 MCV 91.0 90.7 MCH 29.8 30.1 MCHC 32.8 33.2 RDW 15.0 14.9 Plt Count 58 L 60 L MPV 9.4 10.6 Immature Gran % (Auto) 1.0 H Neut % (Auto) 85.7 H Lymph % (Auto) 7.0 L [place] % (Auto) 4.7 Eos % (Auto) 1.1 Baso % (Auto) 0.5 Lymph # (Auto) 0.9 L [place] # (Auto) 0.6 Eos # (Auto) 0.1 Baso # (Auto) 0.1 Abs Immat Gran (auto) 0.12 H Absolute Neuts (auto) 10.8 H Absolute Nucleated RBC 0.000 0.000 Nucleated RBC % (auto) 0.0 0.0 PT 19.3 H D 15.2 H D INR 1.7 H 1.3 H aPTT Heparin Protocol 34.0 L 50.4 L D Anion Gap 13 Estim Creat Clear Calc 60.2 Estimated GFR 46 Random Glucose 118 H Calcium 8.6 Total Bilirubin 0.9 AST 24 ALT 25 Alkaline Phosphatase 74 Total Protein 6.2 L Albumin 3.1 L 08/12/25 05:50 MCV 92.3 MCH 29.6 MCHC 32.1 RDW 14.7 Plt Count 62 L MPV 10.1 Immature Gran % (Auto) 0.8 H Neut % (Auto) 86.6 H Lymph % (Auto) 6.0 L [place] % (Auto) 5.3 Eos % (Auto) 1.0 Baso % (Auto) 0.3 Lymph # (Auto) 0.8 L [place] # (Auto) 0.7 Eos # (Auto) 0.1 Baso # (Auto) 0.0 Abs Immat Gran (auto) 0.10 H Absolute Neuts (auto) 11.1 H Absolute Nucleated RBC 0.000 Nucleated RBC % (auto) 0.0 PT INR aPTT Heparin Protocol 62.2 D Anion Gap Estim Creat Clear Calc Estimated GFR Random Glucose Calcium Total Bilirubin AST ALT Alkaline Phosphatase Total Protein Albumin Microbiology Microbiology Results: Microbiology 08/10/25 12:12 Blood Culture - Preliminary Blood - Venous No growth after 24 hours. 10/13/25 12:05 Blood Culture - Preliminary Blood - Venous No growth after 24 hours. Procedures Date of Service Date of Service: 08/12/25 Progress Note: A&P Assessment and plan (1) Perforation of sigmoid colon due to diverticulitis: Status: Acute (2) SBO (small bowel obstruction): Status: Acute Plan Admitted with sigmoid diverticulitis with contained perforation. Also has tethering of SB to the area causing some degree of SBO. He feels improved overall but unfortunately no evidence of GI function yet. Remains distended on exam and tympanitic, LLQ tender with some mild improvement. WBC significantly improved to 12 this AM. Will continue conservative measures for now, seems to be improving from diverticulitis standpoint with IV abx but remains obstructed. Hopefully he opens up and begins to pass flatus. He is on heparin drip and platelets have downtrended but currently stable. Continue OOB/ambulation and activity to promote GI function. Hold off on NGT for now unless he begins to vomit. Time Spent With Patient Time: Total time managing care of this patient today ____ minutes. Quality Stroke Does the patient have a stroke diagnosis?: No VTE Prior VTE?: No VTE Risk Level:: Surgical - moderate VTE Device Contraindication: N/A - Device Ordered VTE Drug Contraindication: N/A - Med Ordered
[2025-08-12 11:32] VITALS: TEMP 37.2
[2025-08-12 11:52] VITALS: BP 147/84; PULSE 82; RESP 20; TEMP 37; O2SAT 94
[2025-08-12 12:05] LABS: PTT Heparin Drip 55.3 SEC (53-77.9)
--- NOTE | 2025-08-12 14:28 | MHC.CM.PN ---
EMR REVIEWED. PT IS NOT YET MEDICALLY CLEARED FOR DC. PT STATES PAIN SLIGHTLY IMPROVED. CM WILL CONTINUE TO FOLLOW. DP: REMAINS HOME, NO SERVICES.
[2025-08-12 16:00] VITALS: BP 131/88; PULSE 76; RESP 18; TEMP 36.9; O2SAT 95
--- NOTE | 2025-08-12 17:00 | PC.NURSE ---
patient refuses sequentials,risks explained,ambulating,encouraged activity
[2025-08-12 19:04] VITALS: BP 135/82; PULSE 77; RESP 18; TEMP 36.6; O2SAT 95
[2025-08-13] VITALS (7 sets, daily range): BP systolic 142–166; BP diastolic 82–94; PULSE 71–80; RESP 17–20; TEMP 36.8–37.2; O2SAT 94–96; BMI 37.3
[2025-08-13] MEDS: metroNIDAZOLE/NS 500 MG/100 ML PIGGYBACK 100 MG IV ×3 (03:12→20:03)
--- NOTE | 2025-08-13 04:32 | PC.NURSE ---
Pt complaining of nausea at 0010, pt medicated per DEC. Pt stated zofran helped a little amount . Pt had a vomiting episode at 0300. This RN asked pt if they would like them to reach out to the dr because they were not due for zofran/had no other prn nausea meds but pt declined. Pt resting with eyes closed, respirations even and unlabored at this time. Will continue to monitor pt.
[2025-08-13] MEDS: Dextrose 5 % and Lactated Ring 1,000 ML 125 ML IVCONT ×3 (05:39→21:26)
[2025-08-13 06:01] LABS: MANUAL DIFF FLAG NO
[2025-08-13 06:05] LABS: Hematocrit 46.0 % (42.0-52.0); Hemoglobin 15.0 g/dl (14.0-18.0); Imm Gran Abs Auto 0.13 X10*3/uL (0.00-0.03); Imm Gran Pct Auto 1.2 % (0.0-0.4); Lymphocytes Absolute Auto 0.7 X10*3/uL (1.2-4.9); Mean Corpuscular HGB Conc 32.6 g/dl (31.0-36.0); Mean Corpuscular Hemoglobin 29.6 pg (27.0-33.0); Mean Corpuscular Volume 90.9 fL (80.0-98.0); NRBC Abs Auto 0.000 X10*3/uL (0.0-0.012); NRBC Pct Auto 0.0 /100WBC (0.0-0.2); Platelet Count 60 X10*3/uL (160-400); Red Blood Count 5.06 X10*6/uL (4.60-5.80); White Blood Count 11.1 X10*3/uL (4.8-10.8)
[2025-08-13 06:16] LABS: PTT Heparin Drip 49.5 SEC (53-77.9)
[2025-08-13 06:27] LABS: Alanine Aminotransferase 28 U/L (0-40); Albumin Level 3.4 g/dL (3.5-5.0); Anion Gap 13 (12-20); Aspartate Amino Transferase 27 U/L (5-37); Blood Urea Nitrogen 38 mg/dL (9-16); Calcium 9.3 mg/dL (8.4-10.2); Carbon Dioxide 24 mmol/L (22-29); Chloride 106 mmol/L (96-108); Creatinine Clr Calc Pharmacy 53.2; Estimated Glomerular Filt Rate 40; Potassium 4.1 mmol/L (3.3-5.1); Sodium 139 mmol/L (135-145); Total Protein 6.7 g/dL (6.5-8.0)
[2025-08-13 06:28] LABS: Alkaline Phosphatase 77 U/L (39-117)
--- NOTE | 2025-08-13 08:05 | P.PNGS_ITS ---
Subjective Subjective Date of Service: 08/13/25 Interval history: Unfortunately had two episodes of vomiting this morning. Has continued nausea and belching/hiccuping. Has had some flatus and a small BM yesterday but nothing significant. Feels more bloated and uncomfortable this morning but less LLQ pain. Physical Exam 2 Vital Signs: Vital Signs: Last Vital Signs Temp 98.4 F 08/13/25 04:00 Pulse 80 08/13/25 04:00 Resp 18 08/13/25 04:00 BP 164/90 H 08/13/25 04:00 Pulse Ox 95 08/13/25 04:00 O2 Del Method Room Air 08/13/25 00:00 BMI result Body Mass Index 37.3 Const: Other: uncomfortable appearing General: no acute distress and alert Orientation/consciousness: patient oriented x3 Resp: Effort & Inspection: normal respiratory effort GI: Inspection: Yes distended (increasingly ) Palpation (GI): Soft to palpation, Tenderness to palpation present (GI) (improved LLQ) and no guarding Percussion: Yes tympanic to percussion Skin: General skin exam: no rashes or lesions noted Neuro: General: patient oriented x3 and moves all extremities Extrem: General: Yes no clubbing, cyanosis or edema Objective Data Active Medications Albuterol Sulfate (Albuterol Sulfate 90 Mcg 8 Gm Inhaler) 2 puff INHALE RQ6H PRN PRN Reason: Shortness Of Breath Or Wheezing Calcium Carbonate (Calcium Carbonate 750 Mg Tab.Chew) 750 mg PO Q4H PRN PRN Reason: Heartburn Last Admin: 08/12/25 21:41 Dose: 750 mg Documented By: ESAU Ceftriaxone Sodium (Ceftriaxone Sodium 1 Gm Vial) 1 gm IVPUSH Q12H [facility] Last Admin: 08/13/25 00:05 Dose: 1 gm Documented By: ESAU Heparin Sodium (Porcine) (Heparin Sodium,Porcine 5,000 Unit/Ml Vial) 4,500 unit 40 unit/kg (4500 unit) IVPUSH PROTOCOL BOLUS PRN; Protocol PRN Reason: 40 unit/kg - Heparin Protocol Last Admin: 08/13/25 06:34 Dose: 4,500 unit Documented By: ESAU Heparin Sodium (Porcine) (Heparin Sodium,Porcine 5,000 Unit/Ml Vial) 8,900 unit 80 unit/kg (8900 unit) IVPUSH PROTOCOL BOLUS PRN; Protocol PRN Reason: 80 unit/kg - Heparin Protocol Hydromorphone HCl (Hydromorphone Hcl 0.5 Mg/0.5 Ml Syringe) 0.5 mg IVPUSH Q3H PRN; Protocol PRN Reason: Pain, Severe (Pain Scale 7-10) Last Admin: 08/13/25 00:52 Dose: 0.5 mg Documented By: ESAU Acetaminophen (Ofirmev) 1,000 mg in 100 mls @ 400 mls/hr IV Q6H PRN PRN Reason: Pain, Mild (Pain Scale 1-3) Last Infusion: 08/13/25 05:57 Dose: Infused Documented By: ESAU Dextrose/Lactated Ringer's (D5lr) 1,000 mls @ 125 mls/hr IVCONT .Q8H [facility] Last Admin: 08/13/25 05:39 Dose: 125 mls/hr Documented By: ESAU Metronidazole (Flagyl) 500 mg in 100 mls @ 100 mls/hr IV Q8H [facility] Last Infusion: 08/13/25 04:24 Dose: Infused Documented By: ESAU Heparin Sodium/Sodium Chloride (Heparin Sodium,Porcine/1/2ns) 25,000 unit in 250 mls @ 0 mls/hr IVCONT .Q0M [facility]; Protocol Last Titration: 08/13/25 06:43 Dose: 18 units/kg/hr, 20.05 mls/hr Documented By: ESAU Co-signed By: JEWEL Magnesium Hydroxide (Milk Of Magnesia 30 Ml Oral.Susp) 30 ml PO DAILY PRN PRN Reason: Constipation Ondansetron HCl (Ondansetron Hcl 4 Mg/2 Ml Vial) 4 mg IVPUSH QID PRN PRN Reason: Nausea Last Admin: 08/13/25 06:04 Dose: 4 mg Documented By: ESAU Sodium Chloride (0.9 % Sodium Chloride Flush 3 Ml Syringe) 3 ml IVFLUSH QSHIFT [facility] Last Admin: 08/13/25 08:03 Dose: Not Given Documented By: STEPHANE Non-Admin Reason: IV Running Trazodone HCl (Trazodone Hcl 50 Mg Tablet) 50 mg PO DAILY PRN PRN Reason: Insomnia Zolpidem Tartrate (Zolpidem Tartrate 5 Mg Tablet) 5 mg PO BEDTIME PRN PRN Reason: Insomnia Labs 08/13/25 05:53 08/13/25 05:53 Labs: Laboratory Results - last 24 hr 08/12/25 08/13/25 11:46 05:53 MCV 90.9 MCH 29.6 MCHC 32.6 RDW 14.6 Plt Count 60 L MPV 10.2 Immature Gran % (Auto) 1.2 H Neut % (Auto) 83.7 H Lymph % (Auto) 6.7 L [place] % (Auto) 7.6 Eos % (Auto) 0.3 Baso % (Auto) 0.5 Lymph # (Auto) 0.7 L Sac # (Auto) 0.8 Eos # (Auto) 0.0 Baso # (Auto) 0.1 Abs Immat Gran (auto) 0.13 H Absolute Neuts (auto) 9.3 H Absolute Nucleated RBC 0.000 Nucleated RBC % (auto) 0.0 aPTT Heparin Protocol 55.3 49.5 L Anion Gap 13 Estim Creat Clear Calc 53.2 Estimated GFR 40 Random Glucose 139 H Calcium 9.3 D Total Bilirubin 0.9 AST 27 ALT 28 Alkaline Phosphatase 77 Total Protein 6.7 Albumin 3.4 L Microbiology Microbiology Results: Microbiology 08/10/25 12:12 Blood Culture - Preliminary Blood - Venous No growth after 48 hours. 08/10/25 12:05 Blood Culture - Preliminary Blood - Venous No growth after 48 hours. Procedures Date of Service Date of Service: 08/13/25 Progress Note: A&P Assessment and plan (1) Antiphospholipid syndrome: Status: Acute (2) SBO (small bowel obstruction): Status: Acute (3) Perforation of sigmoid colon due to diverticulitis: Status: Acute Plan Unfortunately now has developed vomiting with increasing belching and abd discomfort. Abd does remain markedly distended but LLQ tenderness improved. Recommended NGT insertion for decompression. Has had prolonged NPO status, nutrition consult for PPN. Although he has improvement from a diverticulitis standpoint, he remains at least partially obstructed. Will continue nonoperative measures for now, consider SBFT but we did discuss if he does not have improvement, exploratory laparotomy may be necessary. Cont IV abx, heparin drip. Time Spent With Patient Time: Total time managing care of this patient today ____ minutes. Quality Stroke Does the patient have a stroke diagnosis?: No VTE Prior VTE?: No VTE Risk Level:: Surgical - moderate VTE Device Contraindication: N/A - Device Ordered VTE Drug Contraindication: N/A - Med Ordered
[2025-08-13] MEDS: Heparin Sodium,Porcine/1/2NS 25,000 UNIT/250 ML IV.SOLN 20.05 UNIT IVCONT ×2 (09:12→22:56)
--- NOTE | 2025-08-13 11:19 | MHC.CLN ---
CONSULT PT IS NPO CONSULT FOR PPN REVIEWED LABS DISCUSSED WITH PHARMACY RECOMMEND PPN AT 60ML/HR TO PROVIDE 734KCALS, 144G DEXTROSE, 61G PROTEIN REPLETE LYTES NEEDED SEE FULL ASSESSMENT
[2025-08-13 12:01] LABS: Magnesium 2.2 mg/dL (1.6-2.6)
[2025-08-13 12:15] LABS: PTT Heparin Drip 84.9 SEC (53-77.9)
[2025-08-13] MEDS: Throat Spray, Medicated 177 ML BOTTLE 1 SPRAY MUCOUS MEM (14:12)
[2025-08-13 18:43] LABS: PTT Heparin Drip 52.4 SEC (53-77.9)
[2025-08-13] MEDS: Parenteral Nutrition 1,440 ML 60 ML IV (22:10)
[2025-08-14] VITALS (7 sets, daily range): BP systolic 131–162; BP diastolic 78–92; PULSE 71–80; RESP 12–20; TEMP 36.2–37.2; O2SAT 94–96
[2025-08-14 01:52] LABS: PTT Heparin Drip 70.0 SEC (53-77.9)
[2025-08-14] MEDS: metroNIDAZOLE/NS 500 MG/100 ML PIGGYBACK 100 MG IV ×3 (04:19→20:25)
[2025-08-14] MEDS: Dextrose 5 % and Lactated Ring 1,000 ML 125 ML IVCONT ×2 (04:30→15:38)
[2025-08-14 06:11] LABS: MANUAL DIFF FLAG NO
[2025-08-14 06:15] LABS: Hematocrit 45.6 % (42.0-52.0); Hemoglobin 14.9 g/dl (14.0-18.0); Imm Gran Abs Auto 0.15 X10*3/uL (0.00-0.03); Imm Gran Pct Auto 1.5 % (0.0-0.4); Lymphocytes Absolute Auto 1.0 X10*3/uL (1.2-4.9); Mean Corpuscular HGB Conc 32.7 g/dl (31.0-36.0); Mean Corpuscular Hemoglobin 29.6 pg (27.0-33.0); Mean Corpuscular Volume 90.7 fL (80.0-98.0); NRBC Abs Auto 0.000 X10*3/uL (0.0-0.012); NRBC Pct Auto 0.0 /100WBC (0.0-0.2); Platelet Count 57 X10*3/uL (160-400); Red Blood Count 5.03 X10*6/uL (4.60-5.80); White Blood Count 10.1 X10*3/uL (4.8-10.8)
[2025-08-14 06:28] LABS: Alanine Aminotransferase 25 U/L (0-40); Albumin Level 3.3 g/dL (3.5-5.0); Alkaline Phosphatase 78 U/L (39-117); Anion Gap 15 (12-20); Aspartate Amino Transferase 23 U/L (5-37); Blood Urea Nitrogen 45 mg/dL (9-16); Calcium 9.5 mg/dL (8.4-10.2); Carbon Dioxide 31 mmol/L (22-29); Chloride 103 mmol/L (96-108); Creatinine Clr Calc Pharmacy 49.3; Estimated Glomerular Filt Rate 37; Magnesium 2.3 mg/dL (1.6-2.6); Potassium 3.7 mmol/L (3.3-5.1); Sodium 145 mmol/L (135-145); Total Protein 6.3 g/dL (6.5-8.0); Triglycerides 98 mg/dL (<150)
--- NOTE | 2025-08-14 07:17 | P.PNGS_ITS ---
Subjective Subjective Date of Service: 08/14/25 Interval history: patient feels improved today with formed BMs and gas passing. He feels less distension as well. Physical Exam 2 Vital Signs: Vital Signs: Last Vital Signs Temp 98.9 F 08/14/25 03:33 Pulse 72 08/14/25 03:33 Resp 18 08/14/25 03:33 BP 143/83 H 08/14/25 03:33 Pulse Ox 94 08/14/25 03:33 O2 Del Method Room Air 08/14/25 03:33 BMI result Body Mass Index 37.3 Const: General: no acute distress Nutritional Appearance: well nourished Orientation/consciousness: patient oriented x3 Limitations: no limitations Resp: Effort & Inspection: normal respiratory effort GI: Inspection: Yes distended Palpation (GI): Soft to palpation, nontender, no guarding and not rigid Percussion: Yes dullness to percussion Neuro: General: patient oriented x3 Extrem: Other: left extremity dressing intact. General: Yes no clubbing, cyanosis or edema Objective Data Active Medications Albuterol Sulfate (Albuterol Sulfate 90 Mcg 8 Gm Inhaler) 2 puff INHALE RQ6H PRN PRN Reason: Shortness Of Breath Or Wheezing Calcium Carbonate (Calcium Carbonate 750 Mg Tab.Chew) 750 mg PO Q4H PRN PRN Reason: Heartburn Last Admin: 08/12/25 21:41 Dose: 750 mg Documented By: ESAU Ceftriaxone Sodium (Ceftriaxone Sodium 1 Gm Vial) 1 gm IVPUSH Q12H [facility] Last Admin: 08/14/25 00:09 Dose: 1 gm Documented By: ESAU Heparin Sodium (Porcine) (Heparin Sodium,Porcine 5,000 Unit/Ml Vial) 4,500 unit 40 unit/kg (4500 unit) IVPUSH PROTOCOL BOLUS PRN; Protocol PRN Reason: 40 unit/kg - Heparin Protocol Last Admin: 08/13/25 19:20 Dose: 4,500 unit Documented By: ESAU Heparin Sodium (Porcine) (Heparin Sodium,Porcine 5,000 Unit/Ml Vial) 8,900 unit 80 unit/kg (8900 unit) IVPUSH PROTOCOL BOLUS PRN; Protocol PRN Reason: 80 unit/kg - Heparin Protocol Hydromorphone HCl (Hydromorphone Hcl 0.5 Mg/0.5 Ml Syringe) 0.5 mg IVPUSH Q3H PRN; Protocol PRN Reason: Pain, Severe (Pain Scale 7-10) Last Admin: 08/13/25 09:09 Dose: 0.5 mg Documented By: STEPHANE Acetaminophen (Ofirmev) 1,000 mg in 100 mls @ 400 mls/hr IV Q6H PRN PRN Reason: Pain, Mild (Pain Scale 1-3) Last Infusion: 08/14/25 06:38 Dose: Infused Documented By: ESAU Dextrose/Lactated Ringer's (D5lr) 1,000 mls @ 125 mls/hr IVCONT .Q8H [facility] Last Admin: 08/14/25 04:30 Dose: 125 mls/hr Documented By: ESAU Metronidazole (Flagyl) 500 mg in 100 mls @ 100 mls/hr IV Q8H [facility] Last Infusion: 08/14/25 05:36 Dose: Infused Documented By: ESAU Heparin Sodium/Sodium Chloride (Heparin Sodium,Porcine/1/2ns) 25,000 unit in 250 mls @ 0 mls/hr IVCONT .Q0M [facility]; Protocol Last Titration: 08/14/25 02:30 Dose: 18 units/kg/hr, 20.05 mls/hr Documented By: ESAU Co-signed By: PAM Nutrition (Parenteral) (Parenteral Nutrition) 1,440 mls @ 60 mls/hr IV .Q24H [facility]; Protocol Stop: 08/14/25 20:59 Last Admin: 08/13/25 22:10 Dose: 60 mls/hr Documented By: ESAU Losartan Potassium (Losartan Potassium 50 Mg Tablet) 50 mg PO DAILY [facility]; Protocol Last Admin: 08/13/25 12:20 Dose: 50 mg Documented By: STEPHANE Magnesium Hydroxide (Milk Of Magnesia 30 Ml Oral.Susp) 30 ml PO DAILY PRN PRN Reason: Constipation Multi-Ingred Medicated Throat [place] (Throat [place], Medicated 177 Ml Bottle) 1 spray MUCOUS MEM Q2H PRN PRN Reason: sore throat Last Admin: 08/13/25 14:12 Dose: 1 spray Documented By: STEPHANE Ondansetron HCl (Ondansetron Hcl 4 Mg/2 Ml Vial) 4 mg IVPUSH QID PRN PRN Reason: Nausea Last Admin: 08/13/25 20:33 Dose: 4 mg Documented By: ESAU Sodium Chloride (0.9 % Sodium Chloride Flush 3 Ml Syringe) 3 ml IVFLUSH QSHIFT [facility] Last Admin: 08/13/25 23:32 Dose: Not Given Documented By: ESAU Non-Admin Reason: IV Running Trazodone HCl (Trazodone Hcl 50 Mg Tablet) 50 mg PO DAILY PRN PRN Reason: Insomnia Last Admin: 08/13/25 22:02 Dose: 50 mg Documented By: ESAU Zolpidem Tartrate (Zolpidem Tartrate 5 Mg Tablet) 5 mg PO BEDTIME PRN PRN Reason: Insomnia Labs 08/14/25 05:58 08/14/25 05:58 Labs: Laboratory Results - last 24 hr 08/12/25 08/13/25 08/13/25 05:49 05:53 11:56 MCV MCH MCHC RDW Plt Count MPV Immature Gran % (Auto) Neut % (Auto) Lymph % (Auto) [place] % (Auto) Eos % (Auto) Baso % (Auto) Lymph # (Auto) [place] # (Auto) Eos # (Auto) Baso # (Auto) Abs Immat Gran (auto) Absolute Neuts (auto) Absolute Nucleated RBC Nucleated RBC % (auto) aPTT Heparin Protocol 84.9 H D Anion Gap Estim Creat Clear Calc Estimated GFR Random Glucose Calcium Phosphorus 3.2 Magnesium 2.2 Total Bilirubin AST ALT Alkaline Phosphatase Total Protein Albumin Triglycerides Double Strand DNA Ab 5 H Complement C3 120 Complement C4 16 08/13/25 08/14/25 08/14/25 18:13 01:30 05:58 MCV 90.7 MCH 29.6 MCHC 32.7 RDW 14.6 Plt Count 57 L MPV 9.9 Immature Gran % (Auto) 1.5 H Neut % (Auto) 79.6 H Lymph % (Auto) 9.7 L [place] % (Auto) 7.9 Eos % (Auto) 0.9 Baso % (Auto) 0.4 Lymph # (Auto) 1.0 L [place] # (Auto) 0.8 Eos # (Auto) 0.1 Baso # (Auto) 0.0 Abs Immat Gran (auto) 0.15 H Absolute Neuts (auto) 8.0 Absolute Nucleated RBC 0.000 Nucleated RBC % (auto) 0.0 aPTT Heparin Protocol 52.4 L D 70.0 D Anion Gap 15 Estim Creat Clear Calc 49.3 Estimated GFR 37 Random Glucose 123 H Calcium 9.5 Phosphorus 3.4 Magnesium 2.3 Total Bilirubin 0.8 AST 23 ALT 25 Alkaline Phosphatase 78 Total Protein 6.3 L Albumin 3.3 L Triglycerides 98 Double Strand DNA Ab Complement C3 Complement C4 Procedures Date of Service Date of Service: 08/14/25 Progress Note: A&P Assessment and plan (1) Perforation of sigmoid colon due to diverticulitis: Status: Acute (2) Abdominal pain: Status: Acute (3) Antiphospholipid syndrome: Status: Acute Plan Patient making slow progress, now passing stool and gas. NGT with high output. Will do clamping trial today and if low residual, with d/c tube. Encouraged OOB and ambulation. Anticoagulation per hospitalist team. WBC normal today. Continue IV antibiotics for diverticulitis. Time Spent With Patient Time: Total time managing care of this patient today ____ minutes. Quality Stroke Does the patient have a stroke diagnosis?: No VTE Prior VTE?: No VTE Risk Level:: Surgical - moderate VTE Device Contraindication: N/A - Device Ordered VTE Drug Contraindication: N/A - Med Ordered
--- NOTE | 2025-08-14 09:28 | MHC.CLN ---
F/U PT REMAINS NPO NOTED BM AND LESS DISTENTION PLAN FOR TRIAL OF NGT CLAMP TODAY REVIEWED LABS DISCUSSED WITH PHARMACY RECOMMEND INCREASING PPN TO MAX GOAL RATE OF 80ML/HR WITH 64G LIPIDS TO PROVIDE 1619 TOTAL KCALS (23KCALS/KG), 192G DEXTROSE, 82G PROTEIN (1.2G/KG) REPLETE LYTES NEEDED PT TO REMAIN ON PPN AT MAX GOAL RATE THROUGH [address] CAN BE REACHED VIA [employer] DURING OFF HOURS IF NEEDED
[2025-08-14 09:29] LABS: PTT Heparin Drip 72.8 SEC (53-77.9)
[2025-08-14] MEDS: Heparin Sodium,Porcine/1/2NS 25,000 UNIT/250 ML IV.SOLN 20.05 UNIT IVCONT (11:29)
--- NOTE | 2025-08-14 14:03 | MHC.CM.PN ---
Patient is not medically cleared for discharge. 08/13 patient developed N/V. DX with SBO. NG tube inserted. DP home self care. Patient will arrange for his to provide transport home.
[2025-08-14] MEDS: Parenteral Nutrition 1,920 ML 80 ML IV (21:37)
[2025-08-15] VITALS (8 sets, daily range): BP systolic 140–172; BP diastolic 80–90; PULSE 74–83; RESP 16–20; TEMP 36.6–37.7; O2SAT 92–96
[2025-08-15] MEDS: Heparin Sodium,Porcine/1/2NS 25,000 UNIT/250 ML IV.SOLN 20.05 UNIT IVCONT ×2 (00:04→10:33)
[2025-08-15] MEDS: 0.9 % Sodium Chloride Flush 3 ML SYRINGE IVFLUSH (00:13)
[2025-08-15] MEDS: Dextrose 5 % and Lactated Ring 1,000 ML 125 ML IVCONT ×2 (03:29→12:55)
[2025-08-15] MEDS: metroNIDAZOLE/NS 500 MG/100 ML PIGGYBACK 100 MG IV ×3 (03:32→21:17)
[2025-08-15 06:36] LABS: MANUAL DIFF FLAG NO
[2025-08-15 06:51] LABS: PTT Heparin Drip 75.4 SEC (53-77.9)
[2025-08-15 06:58] LABS: Alanine Aminotransferase 25 U/L (0-40); Albumin Level 3.2 g/dL (3.5-5.0); Alkaline Phosphatase 98 U/L (39-117); Anion Gap 15 (12-20); Aspartate Amino Transferase 26 U/L (5-37); Blood Urea Nitrogen 45 mg/dL (9-16); Calcium 9.7 mg/dL (8.4-10.2); Carbon Dioxide 32 mmol/L (22-29); Chloride 100 mmol/L (96-108); Creatinine Clr Calc Pharmacy 50.9; Estimated Glomerular Filt Rate 38; Magnesium 2.3 mg/dL (1.6-2.6); Potassium 3.9 mmol/L (3.3-5.1); Sodium 143 mmol/L (135-145); Total Protein 6.2 g/dL (6.5-8.0)
[2025-08-15 07:06] LABS: Hematocrit 46.1 % (42.0-52.0); Hemoglobin 14.9 g/dl (14.0-18.0); Imm Gran Abs Auto 0.36 X10*3/uL (0.00-0.03); Imm Gran Pct Auto 3.0 % (0.0-0.4); Lymphocytes Absolute Auto 1.2 X10*3/uL (1.2-4.9); Mean Corpuscular HGB Conc 32.3 g/dl (31.0-36.0); Mean Corpuscular Hemoglobin 29.6 pg (27.0-33.0); Mean Corpuscular Volume 91.5 fL (80.0-98.0); NRBC Abs Auto 0.000 X10*3/uL (0.0-0.012); NRBC Pct Auto 0.0 /100WBC (0.0-0.2); Red Blood Count 5.04 X10*6/uL (4.60-5.80); White Blood Count 12.2 X10*3/uL (4.8-10.8)
[2025-08-15 07:07] LABS: Platelet Count 50 X10*3/uL (160-400)
[2025-08-15 11:00] LABS: GASOB Int Neg Ctl Valid YES; GASOB Int Pos Ctl Valid YES
[2025-08-15 11:01] LABS: GASOB Lot 20542
--- NOTE | 2025-08-15 12:07 | PM.PNGS ---
Subjective Subjective Date of Service: 08/15/25 Interval history: Patient reports feeling less well today with increased abdominal distention. He is reporting continued flatus but no further bowel movements. NG tube output appears more bloody today. He is thinking he may need surgery for the obstruction. Physical Exam Vital Signs: Vital Signs: Last Vital Signs Temp 99.8 F 08/15/25 07:55 Pulse 79 08/15/25 07:55 Resp 18 08/15/25 07:55 BP 163/88 H 08/15/25 07:55 Pulse Ox 94 08/15/25 07:55 O2 Del Method Room Air 08/15/25 07:55 BMI result Body Mass Index 37.3 Const: General: alert Nutritional Appearance: well nourished Orientation/consciousness: patient oriented x3 Resp: Effort & Inspection: normal respiratory effort GI: Other: Soft, distended, tympany to percussion, no rebound, guarding or rigidity. Skin: Other: Warm, dry, no rash Neuro: General: patient oriented x3 Extrem: Other: No edema Objective Data Active Medications Albuterol Sulfate (Albuterol Sulfate 90 Mcg 8 Gm Inhaler) 2 puff INHALE RQ6H PRN PRN Reason: Shortness Of Breath Or Wheezing Calcium Carbonate (Calcium Carbonate 750 Mg Tab.Chew) 750 mg PO Q4H PRN PRN Reason: Heartburn Last Admin: 08/12/25 21:41 Dose: 750 mg Documented By: ESAU Ceftriaxone Sodium (Ceftriaxone Sodium 1 Gm Vial) 1 gm IVPUSH Q12H [facility] Last Admin: 08/15/25 00:11 Dose: 1 gm Documented By: YANCI Heparin Sodium (Porcine) (Heparin Sodium,Porcine 5,000 Unit/Ml Vial) 4,500 unit 40 unit/kg (4500 unit) IVPUSH PROTOCOL BOLUS PRN; Protocol PRN Reason: 40 unit/kg - Heparin Protocol Last Admin: 08/13/25 19:20 Dose: 4,500 unit Documented By: ESAU Heparin Sodium (Porcine) (Heparin Sodium,Porcine 5,000 Unit/Ml Vial) 8,900 unit 80 unit/kg (8900 unit) IVPUSH PROTOCOL BOLUS PRN; Protocol PRN Reason: 80 unit/kg - Heparin Protocol Hydromorphone HCl (Hydromorphone Hcl 0.5 Mg/0.5 Ml Syringe) 0.5 mg IVPUSH Q3H PRN; Protocol PRN Reason: Pain, Severe (Pain Scale 7-10) Last Admin: 08/15/25 10:35 Dose: 0.5 mg Documented By: MARY ANNE Acetaminophen (Ofirmev) 1,000 mg in 100 mls @ 400 mls/hr IV Q6H PRN PRN Reason: Pain, Mild (Pain Scale 1-3) Last Infusion: 08/15/25 02:03 Dose: Infused Documented By: YANCI Dextrose/Lactated Ringer's (D5lr) 1,000 mls @ 125 mls/hr IVCONT .Q8H [facility]ON[facility]AN Last Admin: 08/15/25 07:51 Dose: Not Given Documented By: MARY ANNE Non-Admin Reason: IV Running Metronidazole (Flagyl) 500 mg in 100 mls @ 100 mls/hr IV Q8H JON[facility] Last Infusion: 08/15/25 04:35 Dose: Infused Documented By: YANCI Heparin Sodium/Sodium Chloride (Heparin Sodium,Porcine/1/2ns) 25,000 unit in 250 mls @ 0 mls/hr IVCONT .Q0M JONATHAN; Protocol On Hold: 08/15/25 11:16 Last Titration: 08/15/25 11:14 Dose: 0 units/kg/hr, 0 mls/hr Documented By: MARY ANNE Co-signed By: VAMSI Nutrition (Parenteral) (Parenteral Nutrition) 1,920 mls @ 80 mls/hr IV .Q24H JONATHAN; Protocol Stop: 08/15/25 20:59 Last Admin: 08/14/25 21:37 Dose: 80 mls/hr Documented By: YANCI Nutrition (Parenteral) (Parenteral Nutrition) 1,920 mls @ 80 mls/hr IV .Q24H JONATHAN; Protocol Stop: 08/16/25 20:59 Magnesium Hydroxide (Milk Of Magnesia 30 Ml Oral.Susp) 30 ml PO DAILY PRN PRN Reason: Constipation Multi-Ingred Medicated Throat [place] (Throat [place], Medicated 177 Ml Bottle) 1 spray MUCOUS MEM Q2H PRN PRN Reason: sore throat Last Admin: 08/13/25 14:12 Dose: 1 spray Documented By: STEPHANE Ondansetron HCl (Ondansetron Hcl 4 Mg/2 Ml Vial) 4 mg IVPUSH QID PRN PRN Reason: Nausea Last Admin: 08/15/25 10:39 Dose: 4 mg Documented By: MARY ANNE Pantoprazole Sodium (Pantoprazole Sodium 40 Mg/10 Ml Vial) 40 mg IVPUSH BID@0630,1630 [facility] Pharmacy Consult (Consult Rx Parenteral Nutrition Ordering) 1 each MISCELLANE DAILY PRN PRN Reason: Consult order Sodium Chloride (0.9 % Sodium Chloride Flush 3 Ml Syringe) 3 ml IVFLUSH QSHIFT [facility] Last Admin: 08/15/25 07:51 Dose: Not Given Documented By: MARY ANNE Non-Admin Reason: IV Running Trazodone HCl (Trazodone Hcl 50 Mg Tablet) 50 mg PO DAILY PRN PRN Reason: Insomnia Last Admin: 08/14/25 21:53 Dose: 50 mg Documented By: YANCI Zolpidem Tartrate (Zolpidem Tartrate 5 Mg Tablet) 5 mg PO BEDTIME PRN PRN Reason: Insomnia Last Admin: 08/15/25 01:40 Dose: 5 mg Documented By: YANCI Labs 08/15/25 06:11 08/15/25 06:11 Labs: Laboratory Results - last 24 hr 08/15/25 08/15/25 06:11 10:28 MCV 91.5 MCH 29.6 MCHC 32.3 RDW 14.7 Plt Count 50 L MPV 10.1 Immature Gran % (Auto) 3.0 H Neut % (Auto) 78.3 H Lymph % (Auto) 10.0 L [place] % (Auto) 6.6 Eos % (Auto) 1.6 Baso % (Auto) 0.5 Lymph # (Auto) 1.2 [place] # (Auto) 0.8 Eos # (Auto) 0.2 Baso # (Auto) 0.1 Abs Immat Gran (auto) 0.36 H Absolute Neuts (auto) 9.5 H Absolute Nucleated RBC 0.000 Nucleated RBC % (auto) 0.0 aPTT Heparin Protocol 75.4 Anion Gap 15 Estim Creat Clear Calc 50.9 Estimated GFR 38 Random Glucose 136 H Calcium 9.7 Phosphorus 3.8 Magnesium 2.3 Total Bilirubin 0.6 AST 26 ALT 25 Alkaline Phosphatase 98 Total Protein 6.2 L Albumin 3.2 L Gastric Occult Blood POSITIVE Procedures Date of Service Date of Service: 08/15/25 Progress Note: A&P Assessment and plan (1) Antiphospholipid syndrome: Status: Acute Assessment and Plan: Patient has been on heparin drip however due to positive Hemoccult fluid in NG tube aspirate, heparin drip now held. Discussed with hospitalist team. (2) Perforation of sigmoid colon due to diverticulitis: Status: Acute Assessment and Plan: This appears to be improved with less abdominal pain. Continue IV ceftriaxone and Flagyl. (3) SBO (small bowel obstruction): Status: Acute Assessment and Plan: Patient has increased NG tube output but this appears to be more bloody/coffee-ground in appearance. (4) Upper GI bleed: Status: Acute Assessment and Plan: NG tube aspirate sent to lab in his positive for Hemoccult. Heparin drip stopped. Protonix started. Consult Gastroenterology Time Spent With Patient Time: Total time managing care of this patient today ____ minutes. Quality Stroke Does the patient have a stroke diagnosis?: No VTE Prior VTE?: No VTE Risk Level:: Surgical - moderate VTE Device Contraindication: N/A - Device Ordered VTE Drug Contraindication: N/A - Med Ordered
[2025-08-15 14:51] LABS: MANUAL DIFF FLAG NO
[2025-08-15 14:54] LABS: Hematocrit 42.7 % (42.0-52.0); Hemoglobin 13.9 g/dl (14.0-18.0); Imm Gran Abs Auto 0.46 X10*3/uL (0.00-0.03); Imm Gran Pct Auto 3.7 % (0.0-0.4); Lymphocytes Absolute Auto 0.9 X10*3/uL (1.2-4.9); Mean Corpuscular HGB Conc 32.6 g/dl (31.0-36.0); Mean Corpuscular Hemoglobin 29.7 pg (27.0-33.0); Mean Corpuscular Volume 91.2 fL (80.0-98.0); NRBC Abs Auto 0.000 X10*3/uL (0.0-0.012); NRBC Pct Auto 0.0 /100WBC (0.0-0.2); Platelet Count 42 X10*3/uL (160-400); Red Blood Count 4.68 X10*6/uL (4.60-5.80); White Blood Count 12.6 X10*3/uL (4.8-10.8)
[2025-08-15 15:03] LABS: INTERNATIONAL NORM RATIO 1.2 (0.9-1.1); Prothrombin Time 13.5 SEC (10.9-12.4)
[2025-08-15 15:28] LABS: Anion Gap 16 (12-20); Blood Urea Nitrogen 44 mg/dL (9-16); Calcium 9.3 mg/dL (8.4-10.2); Carbon Dioxide 31 mmol/L (22-29); Chloride 99 mmol/L (96-108); Creatinine Clr Calc Pharmacy 55.8; Estimated Glomerular Filt Rate 42; Potassium 4.8 mmol/L (3.3-5.1); Sodium 141 mmol/L (135-145)
--- NOTE | 2025-08-15 17:20 | P.PNIM_ITS ---
Subjective Subjective Date of Service: 08/15/25 Interval History: 64-year-old male with a history of antiphospholipid syndrome (APLS, triple positive, on home warfarin), pyoderma gangrenosum, hypertension, asthma, and recent perforated diverticulitis with small bowel obstruction (SBO), admitted under surgical service for conservative management. Hospitalist service currently consulting on case Reports feeling less well today with increased abdominal distention. Continues to pass flatus but no further bowel movements. NG tube output now appears more bloody/coffee-ground. Expresses concern about possible need for surgery. No chest pain, shortness of breath, or fevers. Review of systems otherwise negative. Review of Systems Review of Systems: Yes all other systems are reviewed and are negative Physical Exam 2 Exam: Exam: General: Alert, well-nourished, oriented x3 Respiratory: Normal effort, clear to auscultation GI: Abdomen soft, distended, tympanic to percussion, no rebound/guarding/rigidity. NGT in place, coffee ground emesis noted. Skin: Warm, dry, no rash Neuro: Oriented x3, no focal neurological deficits noted Extremities: No edema; lower extremity hyperpigmentation, raised painless rash. Wrapped in reg bandages Vital Signs: Vital Signs: Last Vital Signs Temp 98.0 F 08/15/25 15:19 Pulse 76 08/15/25 15:19 Resp 16 08/15/25 15:19 BP 172/80 H 08/15/25 15:19 Pulse Ox 96 08/15/25 15:19 O2 Del Method Room Air 08/15/25 15:19 BMI result Body Mass Index 37.3 Objective Data Active Medications Albuterol Sulfate (Albuterol Sulfate 90 Mcg 8 Gm Inhaler) 2 puff INHALE RQ6H PRN PRN Reason: Shortness Of Breath Or Wheezing Calcium Carbonate (Calcium Carbonate 750 Mg Tab.Chew) 750 mg PO Q4H PRN PRN Reason: Heartburn Last Admin: 08/12/25 21:41 Dose: 750 mg Documented By: SUNSHINEEBKAI Ceftriaxone Sodium (Ceftriaxone Sodium 1 Gm Vial) 1 gm IVPUSH Q12H [facility] Last Admin: 08/15/25 12:07 Dose: 1 gm Documented By: MARY ANNE Heparin Sodium (Porcine) (Heparin Sodium,Porcine 5,000 Unit/Ml Vial) 4,500 unit 40 unit/kg (4500 unit) IVPUSH PROTOCOL BOLUS PRN; Protocol PRN Reason: 40 unit/kg - Heparin Protocol Last Admin: 08/13/25 19:20 Dose: 4,500 unit Documented By: ESAU Heparin Sodium (Porcine) (Heparin Sodium,Porcine 5,000 Unit/Ml Vial) 8,900 unit 80 unit/kg (8900 unit) IVPUSH PROTOCOL BOLUS PRN; Protocol PRN Reason: 80 unit/kg - Heparin Protocol Hydromorphone HCl (Hydromorphone Hcl 0.5 Mg/0.5 Ml Syringe) 0.5 mg IVPUSH Q3H PRN; Protocol PRN Reason: Pain, Severe (Pain Scale 7-10) Last Admin: 08/15/25 10:35 Dose: 0.5 mg Documented By: MARY ANNE Acetaminophen (Ofirmev) 1,000 mg in 100 mls @ 400 mls/hr IV Q6H PRN PRN Reason: Pain, Mild (Pain Scale 1-3) Last Infusion: 08/15/25 14:00 Dose: Infused Documented By: MARY ANNE Metronidazole (Flagyl) 500 mg in 100 mls @ 100 mls/hr IV Q8H JONATHAN Last Infusion: 08/15/25 13:24 Dose: Infused Documented By: MARY ANNE Heparin Sodium/Sodium Chloride (Heparin Sodium,Porcine/1/2ns) 25,000 unit in 250 mls @ 0 mls/hr IVCONT .Q0M JONATHAN; Protocol On Hold: 08/15/25 11:16 Last Titration: 08/15/25 11:14 Dose: 0 units/kg/hr, 0 mls/hr Documented By: MARY ANNE Co-signed By: VAMSI Nutrition (Parenteral) (Parenteral Nutrition) 1,920 mls @ 80 mls/hr IV .Q24H JONATHAN; Protocol Stop: 08/15/25 20:59 Last Admin: 08/14/25 21:37 Dose: 80 mls/hr Documented By: YANCI Nutrition (Parenteral) (Parenteral Nutrition) 1,920 mls @ 80 mls/hr IV .Q24H JONATHAN; Protocol Stop: 08/16/25 20:59 Magnesium Hydroxide (Milk Of Magnesia 30 Ml Oral.Susp) 30 ml PO DAILY PRN PRN Reason: Constipation Multi-Ingred Medicated Throat [place] (Throat [place], Medicated 177 Ml Bottle) 1 spray MUCOUS MEM Q2H PRN PRN Reason: sore throat Last Admin: 08/13/25 14:12 Dose: 1 spray Documented By: STEPHANE Ondansetron HCl (Ondansetron Hcl 4 Mg/2 Ml Vial) 4 mg IVPUSH QID PRN PRN Reason: Nausea Last Admin: 08/15/25 10:39 Dose: 4 mg Documented By: MARY ANNE Pantoprazole Sodium (Pantoprazole Sodium 40 Mg/10 Ml Vial) 40 mg IVPUSH BID@0630,1630 [facility] Last Admin: 08/15/25 16:53 Dose: 40 mg Documented By: MARY ANNE Pharmacy Consult (Consult Rx Parenteral Nutrition Ordering) 1 each MISCELLANE DAILY PRN PRN Reason: Consult order Sodium Chloride (0.9 % Sodium Chloride Flush 3 Ml Syringe) 3 ml IVFLUSH QSHIFT [facility] Last Admin: 08/15/25 16:36 Dose: Not Given Documented By: MARY ANNE Non-Admin Reason: IV Running Trazodone HCl (Trazodone Hcl 50 Mg Tablet) 50 mg PO DAILY PRN PRN Reason: Insomnia Last Admin: 08/14/25 21:53 Dose: 50 mg Documented By: YANCI Zolpidem Tartrate (Zolpidem Tartrate 5 Mg Tablet) 5 mg PO BEDTIME PRN PRN Reason: Insomnia Last Admin: 08/15/25 01:40 Dose: 5 mg Documented By: YANCI Labs 08/15/25 14:37 08/15/25 14:37 Labs: Laboratory Results - last 24 hr 08/15/25 08/15/25 08/15/25 06:11 10:28 14:37 MCV 91.5 91.2 MCH 29.6 29.7 MCHC 32.3 32.6 RDW 14.7 14.8 Plt Count 50 L 42 L MPV 10.1 11.5 Immature Gran % (Auto) 3.0 H 3.7 H Neut % (Auto) 78.3 H 81.7 H Lymph % (Auto) 10.0 L 6.9 L [place] % (Auto) 6.6 6.0 Eos % (Auto) 1.6 1.0 Baso % (Auto) 0.5 0.7 Lymph # (Auto) 1.2 0.9 L [place] # (Auto) 0.8 0.8 Eos # (Auto) 0.2 0.1 Baso # (Auto) 0.1 0.1 Abs Immat Gran (auto) 0.36 H 0.46 H Absolute Neuts (auto) 9.5 H 10.3 H Absolute Nucleated RBC 0.000 0.000 Nucleated RBC % (auto) 0.0 0.0 PT 13.5 H INR 1.2 H aPTT Heparin Protocol 75.4 Anion Gap 15 16 Estim Creat Clear Calc 50.9 55.8 Estimated GFR 38 42 Random Glucose 136 H 146 H Calcium 9.7 9.3 Phosphorus 3.8 Magnesium 2.3 Total Bilirubin 0.6 AST 26 ALT 25 Alkaline Phosphatase 98 Total Protein 6.2 L Albumin 3.2 L Gastric Occult Blood POSITIVE Microbiology Microbiology Results: Microbiology 08/10/25 12:12 Blood Culture - Final Blood - Venous No growth after 5 days. 08/10/25 12:05 Blood Culture - Final Blood - Venous No growth after 5 days. Assessment and Plan (1) Antiphospholipid syndrome: Status: Acute (2) Upper GI bleed: Status: Acute (3) Perforation of sigmoid colon due to diverticulitis: Status: Acute (4) SBO (small bowel obstruction): Status: Acute (5) Abdominal pain: Status: Acute (6) Pneumoperitoneum: Status: Acute (7) GALEN (acute kidney injury): Status: Acute (8) Pyoderma gangrenosum: Status: Acute Plan 64-year-old male with triple-positive antiphospholipid syndrome (on home warfarin), admitted for perforated sigmoid diverticulitis with SBO, now complicated by upper GI bleeding and new thrombocytopenia while on heparin, raising concern for HIT. APLS / Anticoagulation History of triple-positive antiphospholipid syndrome, previously on therapeutic warfarin (held for possible surgery), transitioned to heparin drip. 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 PLAN: - Heparin drip held. - HIT panel (PF4 MARLEN) and hemolysis studies sent. - Hematology consult for guidance on anticoagulation. - If HIT confirmed, initiate non-heparin anticoagulant (e.g., argatroban or bivalirudin). - Resume anticoagulation when GI bleeding is controlled, in coordination with hematology and GI. Perforated Sigmoid Diverticulitis with SBO Admitted with perforated diverticulitis and small bowel obstruction, managed conservatively. Abdominal pain improved, but distention persists; no peritoneal signs at present. PLAN: - Continue NPO, IV fluids, and IV antibiotics (ceftriaxone and metronidazole). - Serial abdominal exams. - Monitor for clinical deterioration or peritonitis; escalate to surgery if indicated. Upper GI Bleed New coffee-ground NG tube output, positive gastric occult blood, and hemoglobin drop (15 ? 13.9) while on anticoagulation. PLAN: - Continue IV pantoprazole. - GI consult for EGD. - Monitor Hgb and transfuse PRN. - Maintain NPO and supportive care. Thrombocytopenia Platelets decreased from 60 to 47-50, likely multifactorial (HIT, sepsis, DIC, or consumptive process). PLAN: - Monitor CBC and trend platelets. - Hemolysis labs pending. - Hematology consult for further evaluation and management. Acute Kidney Injury (GALEN) Stable creatinine and eGFR, likely prerenal from poor oral intake/dehydration, now improving with IV fluids. PLAN: - Continue IV fluids. - Monitor renal function and electrolytes. Pyoderma Gangrenosum Chronic bilateral lower extremity wounds, managed by spouse (wound care nurse). PLAN: - Continue current wound care regimen. - Wound care consult in place. Hypertension Mildly elevated but stable blood pressure. PLAN: - Held home losartan Asthma No acute exacerbation. PLAN: - Albuterol PRN. Other / Monitoring Immunosuppressed and at risk for infection/sepsis given recent GI perforation and comorbidities. PLAN: - Monitor for signs of infection. - Reassess daily for any change in clinical status or need for surgical intervention. DISPOSITION: Discussed with Surgery service - plans for transfer to medical service tomorrow pending surgical plan and lab work. Monitoring closely. Total time managing care of this patient today: 45 minutes. Quality Stroke Does the patient have a stroke diagnosis?: No VTE Prior VTE?: No VTE Risk Level:: Surgical - moderate VTE Device Contraindication: N/A - Device Ordered VTE Drug Contraindication: N/A - Med Ordered
[2025-08-15 20:42] LABS: Appearance Urine Cloudy; Glucose Urine UA 100 mg/dL (Negative); PH 8.0 (5.0-9.0); Specific Gravity - Urine 1.025 (1.005-1.025); UMIC TRIGGER UA YES
[2025-08-15] MEDS: Parenteral Nutrition 1,920 ML 80 ML IV (21:55)
[2025-08-15 22:28] LABS: MANUAL DIFF FLAG NO
[2025-08-15 22:34] LABS: Hematocrit 41.5 % (42.0-52.0); Hemoglobin 13.7 g/dl (14.0-18.0); Imm Gran Abs Auto 0.39 X10*3/uL (0.00-0.03); Imm Gran Pct Auto 2.7 % (0.0-0.4); Lymphocytes Absolute Auto 1.0 X10*3/uL (1.2-4.9); Mean Corpuscular HGB Conc 33.0 g/dl (31.0-36.0); Mean Corpuscular Hemoglobin 29.8 pg (27.0-33.0); Mean Corpuscular Volume 90.2 fL (80.0-98.0); NRBC Abs Auto 0.000 X10*3/uL (0.0-0.012); NRBC Pct Auto 0.0 /100WBC (0.0-0.2); Red Blood Count 4.60 X10*6/uL (4.60-5.80); White Blood Count 14.6 X10*3/uL (4.8-10.8)
[2025-08-15 22:39] LABS: Platelet Count 50 X10*3/uL (160-400)
[2025-08-15 22:47] LABS: Fibrinogen 686 MG/DL (259-690)
[2025-08-15 22:55] LABS: Alanine Aminotransferase 23 U/L (0-40); Albumin Level 3.0 g/dL (3.5-5.0); Alkaline Phosphatase 77 U/L (39-117); Anion Gap 15 (12-20); Aspartate Amino Transferase 29 U/L (5-37); Blood Urea Nitrogen 42 mg/dL (9-16); Calcium 8.9 mg/dL (8.4-10.2); Carbon Dioxide 31 mmol/L (22-29); Chloride 100 mmol/L (96-108); Creatinine Clr Calc Pharmacy 52.6; Estimated Glomerular Filt Rate 39; Potassium 4.3 mmol/L (3.3-5.1); Sodium 142 mmol/L (135-145); Total Protein 5.5 g/dL (6.5-8.0)
[2025-08-16] VITALS (7 sets, daily range): BP systolic 143–165; BP diastolic 76–96; PULSE 79–96; RESP 17–18; TEMP 36.8–37.9; O2SAT 93–96
[2025-08-16] MEDS: 0.9 % Sodium Chloride Flush 3 ML SYRINGE IVFLUSH ×3 (00:33→23:33)
[2025-08-16] MEDS: metroNIDAZOLE/NS 500 MG/100 ML PIGGYBACK 100 MG IV ×3 (03:34→19:41)
[2025-08-16 06:17] LABS: Hematocrit 40.5 % (42.0-52.0); Hemoglobin 13.2 g/dl (14.0-18.0); Mean Corpuscular HGB Conc 32.6 g/dl (31.0-36.0); Mean Corpuscular Hemoglobin 30.0 pg (27.0-33.0); Mean Corpuscular Volume 92.0 fL (80.0-98.0); NRBC Abs Auto 0.000 X10*3/uL (0.0-0.012); NRBC Pct Auto 0.0 /100WBC (0.0-0.2); Red Blood Count 4.40 X10*6/uL (4.60-5.80); White Blood Count 13.8 X10*3/uL (4.8-10.8)
[2025-08-16 06:20] LABS: Platelet Count 41 X10*3/uL (160-400)
[2025-08-16 06:29] LABS: PTT Heparin Drip 27.1 SEC (53-77.9)
[2025-08-16 06:30] LABS: Anion Gap 11 (12-20); Blood Urea Nitrogen 42 mg/dL (9-16); Calcium 9.4 mg/dL (8.4-10.2); Carbon Dioxide 33 mmol/L (22-29); Chloride 101 mmol/L (96-108); Creatinine Clr Calc Pharmacy 53.9; Estimated Glomerular Filt Rate 40; Magnesium 2.3 mg/dL (1.6-2.6); Potassium 4.3 mmol/L (3.3-5.1); Sodium 141 mmol/L (135-145)
--- NOTE | 2025-08-16 08:25 | P.CNGI_ITS ---
History of Present Illness Data of Consult Service Date: 08/16/25 Primary Care Provider: Jeremías Knox MD HPI Reason for consult: blood in ngt 64 year old male with a past medical history of antiphospholipid syndrome on Coumadin, pyoderma gangrenosum, HTN who I am seeing for blood in NGT Patient was admitted 08/10/25 with severe localized LLQ pain 10/10 worse with movement, with bloating, and constipation. Testing revealed a perforated sigmoid diverticulum and diverticulitis with hemoperitoneum. He was being managed conservatively and then required NGT due to SBO 08/13/25 from tethered loop of small bowel on the bowel. Yesterday he was noted to have bloody output from NGT, he s also on therapeutic anti coag and had low plts after being on heparin gtt. Today he had 2 stools and passed gas. there was no rectal bleeding or melena. He feels less distended and plan is to pull the tube out. He has no abdominal pain, nausea or vomiting. He has an ulcerated lesion on his ankle left side, recent bx with pyoderma gangrenosum Review of Systems 2 Review of Systems: Constitutional : No Weight loss, No Fever, No Chills ENT/Mouth : No sore throat, No Rhinorrhea Eyes: No Swelling, No Redness Cardiovascular : No Chest Pain, No SOB, No Edema Respiratory : No Cough, No Sputum, No Wheezing Gastrointestinal : see HPI Genitourinary : NO Dysuria, No Urinary Frequency, No Hematuria, No Urgency Musculoskeletal : + joint pain, No Myalgias, No Joint Swelling Skin : + ulcer on leg, Neuro : No Weakness, No Numbness, No Dizziness, No Headache Psych : No Anxiety/Panic, No Depression Heme/Lymph: No Bruising, No Lymphadenopathy Endocrine : No Polyuria, No Polydipsia All other systems reviewed and are negative. [facility] Past Medical History Medical History (Updated 08/15/25 @ 17:25 by David Perez MD) Antiphospholipid syndrome (Unknown) Pyoderma gangrenosum Family History Pertinent family history: no FH of IBD Social History Social History Household Members: Spouse Housing: House Do you presently have visiting nurse or other home services: No Patient Tobacco Use Status: Never used Tobacco Currently Displaying Signs/Symptoms of Drug Intoxication Withdrawal: No Have you been hit, kicked, punched, or otherwise hurt by someone within the past year? If so, by whom?: No Do you feel safe in your current relationship?: No Current Relationship Is there a partner from a previous relationship who is making you feel unsafe now?: No Are you made to feel afraid or neglected: No Advance Directives: No Advance Directives Information Provided: Yes Advance Directives on File: No Do you have a plan to hurt others: No Plan Recently lost weight without trying: No Eating poorly because of decreased appetite: No Nutrition Risks: No Nutritional Risk service: No Meds Allergies Allergy/AdvReac Type Severity Reaction Status Date / Time heparin Allergy Severe heparin Verified 08/16/25 10:44 induced thrombocytopenia bacitracin Allergy Unknown Verified 08/10/25 09:38 celecoxib (From Celebrex) Allergy Unknown Verified 08/10/25 09:38 cephalexin (From Keflex) Allergy Unknown Verified 08/10/25 09:38 sulfacetamide (From Allergy Unknown Verified 08/10/25 09:38 Sulfamide) sulfamethoxazole (From Allergy Unknown Verified 08/10/25 09:38 Bactrim) trimethoprim (From Bactrim) Allergy Unknown Verified 08/10/25 09:38 Active Medications: Current Medications Albuterol Sulfate (Albuterol Sulfate 90 Mcg 8 Gm Inhaler) 2 puff INHALE RQ6H PRN PRN Reason: Shortness Of Breath Or Wheezing Calcium Carbonate (Calcium Carbonate 750 Mg Tab.Chew) 750 mg PO Q4H PRN PRN Reason: Heartburn Last Admin: 08/12/25 21:41 Dose: 750 mg Ceftriaxone Sodium (Ceftriaxone Sodium 1 Gm Vial) 1 gm IVPUSH Q12H [facility] Last Admin: 08/16/25 00:30 Dose: 1 gm Heparin Sodium (Porcine) (Heparin Sodium,Porcine 5,000 Unit/Ml Vial) 4,500 unit 40 unit/kg (4500 unit) IVPUSH PROTOCOL BOLUS PRN; Protocol PRN Reason: 40 unit/kg - Heparin Protocol Last Admin: 08/13/25 19:20 Dose: 4,500 unit Heparin Sodium (Porcine) (Heparin Sodium,Porcine 5,000 Unit/Ml Vial) 8,900 unit 80 unit/kg (8900 unit) IVPUSH PROTOCOL BOLUS PRN; Protocol PRN Reason: 80 unit/kg - Heparin Protocol Hydromorphone HCl (Hydromorphone Hcl 0.5 Mg/0.5 Ml Syringe) 0.5 mg IVPUSH Q3H PRN; Protocol PRN Reason: Pain, Severe (Pain Scale 7-10) Last Admin: 08/15/25 22:21 Dose: 0.5 mg Acetaminophen (Ofirmev) 1,000 mg in 100 mls @ 400 mls/hr IV Q6H PRN PRN Reason: Pain, Mild (Pain Scale 1-3) Last Infusion: 08/16/25 05:10 Dose: Infused Metronidazole (Flagyl) 500 mg in 100 mls @ 100 mls/hr IV Q8H [facility] Last Infusion: 08/16/25 04:45 Dose: Infused Heparin Sodium/Sodium Chloride (Heparin Sodium,Porcine/1/2ns) 25,000 unit in 250 mls @ 0 mls/hr IVCONT .Q0M [facility]; Protocol On Hold: 08/15/25 11:16 Last Titration: 08/15/25 11:14 Dose: 0 units/kg/hr, 0 mls/hr Nutrition (Parenteral) (Parenteral Nutrition) 1,920 mls @ 80 mls/hr IV .Q24H [facility]; Protocol Stop: 08/16/25 20:59 Last Admin: 08/15/25 21:55 Dose: 80 mls/hr Nutrition (Parenteral) (Parenteral Nutrition) 1,920 mls @ 80 mls/hr IV .Q24H [facility]; Protocol Stop: 08/17/25 20:59 Magnesium Hydroxide (Milk Of Magnesia 30 Ml Oral.Susp) 30 ml PO DAILY PRN PRN Reason: Constipation Multi-Ingred Medicated Throat [place] (Throat [place], Medicated 177 Ml Bottle) 1 spray MUCOUS MEM Q2H PRN PRN Reason: sore throat Last Admin: 08/13/25 14:12 Dose: 1 spray Ondansetron HCl (Ondansetron Hcl 4 Mg/2 Ml Vial) 4 mg IVPUSH QID PRN PRN Reason: Nausea Last Admin: 08/16/25 03:43 Dose: 4 mg Pantoprazole Sodium (Pantoprazole Sodium 40 Mg/10 Ml Vial) 40 mg IVPUSH BID@0630,1630 [facility] Last Admin: 08/16/25 06:25 Dose: 40 mg Pharmacy Consult (Consult Rx Parenteral Nutrition Ordering) 1 each MISCELLANE DAILY PRN PRN Reason: Consult order Sodium Chloride (0.9 % Sodium Chloride Flush 3 Ml Syringe) 3 ml IVFLUSH QSHIFT [facility] Last Admin: 08/16/25 00:33 Dose: 3 ml Trazodone HCl (Trazodone Hcl 50 Mg Tablet) 50 mg PO DAILY PRN PRN Reason: Insomnia Last Admin: 08/16/25 00:51 Dose: 50 mg Zolpidem Tartrate (Zolpidem Tartrate 5 Mg Tablet) 5 mg PO BEDTIME PRN PRN Reason: Insomnia Last Admin: 08/15/25 01:40 Dose: 5 mg Home Medications ?Medication ?Instructions ?Recorded ?Confirmed ?Last Taken ?Type Tumeric 500 mg PO DAILY 08/10/25 Unknown History albuterol sulfate 90 mcg/actuation 2 inh inhalation Q6 H PRN Shortness 08/10/25 08/10/25 Unknown History breath activated powder inhaler Of Breath Or Wheezing cetirizine 10 mg tablet 10 mg PO DAILY 08/10/2507/29 Unknown History cholecalciferol (vitamin D3) 25 100 mcg PO DAILY 08/1008/10/25 Unknown History mcg (1,000 unit) chewable tablet (Vitamin D3) clobetasol 0.05 % topical cream 1 g topical DAILY 07/2908/10/25 Unknown History fluticasone propionate 50 1 spray intranasal DAILY PRN 08/10/25 08/10/25 Unknown History mcg/actuation nasal Allergy Symptoms spray,suspension furosemide 40 mg tablet 40 mg PO DAILY 08/10/2507/29 Unknown History losartan 100 mg tablet 100 mg PO DAILY 08/10/25 Unknown History omeprazole 20 mg capsule,delayed 20 mg PO SUTUTHSA@063 0 08/10/25 08/10/25 Unknown History release trazodone 50 mg tablet 50 mg PO DAILY PRN Insomnia 08/10/25 08/10/25 Unknown History warfarin 5 mg tablet 5 mg PO SUTUTHSA 08/10/25 Unknown History warfarin 5 mg tablet 10 mg PO MOWEFR 08/10/25 Unknown History Physical Exam 2 Exam: Exam: EXAM: GENERAL: The patient is well developed and nontoxic. VITAL SIGNS:see workflow HEENT: Nonicteric sclerae, PERRLA, EOMI. Oropharynx clear. Moist mucous membranes. Conjunctivae appear well perfused. No thyroid mass. CHEST: Chest wall is nontender. HEART: Regular rate and rhythm without murmurs. LUNGS: Clear to auscultation bilaterally. ABDOMEN: Soft, positive bowel sounds, non tender, no organomegaly.no flank tenderness SKIN: No rash, no excessive bruising, petechiae, or purpura. NEUROLOGIC: Cranial nerves II-XII intact without motor/sensory deficit. Psych: normal affect Vital Signs: Vital Signs: Last Vital Signs Temp 98.3 F 08/16/25 07:57 Pulse 79 08/16/25 07:57 Resp 18 08/16/25 07:57 BP 143/77 H 08/16/25 07:57 Pulse Ox 95 08/16/25 07:57 O2 Del Method Room Air 08/16/25 07:57 BMI result Body Mass Index 37.3 Results Labs 08/16/25 06:08 08/16/25 06:08 Labs: Short CBC 08/15/25 08/15/25 08/16/25 Range/Units 14:37 22:21 06:08 WBC 12.6 H 14.6 H 13.8 H (4.8-10.8) X10*3/uL Hgb 13.9 L 13.7 L 13.2 L (14.0-18.0) g/dl Hct 42.7 41.5 L 40.5 L (42.0-52.0) % Plt Count 42 L 50 L 41 L (160-400) X10*3/uL BMP 08/15/25 08/15/25 08/16/25 14:37 22:21 06:08 Sodium 141 142 141 Potassium 4.8 D 4.3 4.3 Chloride 99 100 101 Carbon Dioxide 31 H 31 H 33 H BUN 44 H 42 H 42 H Creatinine 1.66 H 1.76 H 1.72 H Calcium 9.3 8.9 9.4 Liver Function 08/15/25 Range/Units 22:21 Total Bilirubin 0.7 (0.0-1.0) mg/dL AST 29 (5-37) U/L ALT 23 (0-40) U/L Alkaline Phosphatase 77 (39-117) U/L Albumin 3.0 L (3.5-5.0) g/dL Urine 10/18/25 Range/Units 20:15 Urine Color Dark Yellow Urine Appearance Cloudy Urine pH 8.0 (5.0-9.0) Ur Specific [place] 1.025 (1.005-1.025) Urine Protein 100 (2+) H (Neg-Trace) mg/dL Urine Glucose (UA) 100 H (Negative) mg/dL Microbiology Microbiology Results: Microbiology 08/10/25 12:12 Blood - Venous Blood Culture - Final No growth after 5 days. 08/10/25 12:05 Blood - Venous Blood Culture - Final No growth after [address] scan - abdomen: Attestation: I personally reviewed and interpreted this imaging study as follows: (sigmoid perf, surrounding fluid and stranding- SBO ) Assessment and Plan (1) Perforation of sigmoid colon due to diverticulitis: Status: Acute Plan 1/ self limited bloody putput from NGT likely from mucosal trauma combined possibly from HIT 2/ concern for perf divertciulitis and SBO from tethered small bowel, ddx: crohns eleazar given the Pyoderma gangrenosum dx PLAN: 1/ use alternative non heparin based AC 2/ cont with PPI as enhances clot formation, 3/ pull NGT when appropriate 4/ hold on EGD unless has recurrent bleeding Procedures Date of Service Date of Service: 08/16/25
--- NOTE | 2025-08-16 09:38 | P.PNGS_ITS ---
Subjective Subjective Date of Service: 08/16/25 Interval history: Patient reports several formed bowel movements yesterday and today with continued passing of flatus. NG tube output is no longer bloody this morning and output has decreased significantly since off the heparin. Patient received platelets yesterday however platelet count has decreased once again. Patient reports feeling much improved this morning. Physical Exam 2 Vital Signs: Vital Signs: Last Vital Signs Temp 98.3 F 08/16/25 07:57 Pulse 79 08/16/25 07:57 Resp 18 08/16/25 07:57 BP 143/77 H 08/16/25 07:57 Pulse Ox 95 08/16/25 07:57 O2 Del Method Room Air 08/16/25 07:57 BMI result Body Mass Index 37.3 Const: General: no acute distress Nutritional Appearance: well nourished Orientation/consciousness: patient oriented x3 Limitations: no limitations Resp: Effort & Inspection: normal respiratory effort, no audible wheezes and no cough GI: Other: Softly distended, less tympanitic, nontender to palpation. No rebound or guarding. Skin: Other: Warm, dry, no rash Neuro: General: patient oriented x3 Objective Data Active Medications Albuterol Sulfate (Albuterol Sulfate 90 Mcg 8 Gm Inhaler) 2 puff INHALE RQ6H PRN PRN Reason: Shortness Of Breath Or Wheezing Calcium Carbonate (Calcium Carbonate 750 Mg Tab.Chew) 750 mg PO Q4H PRN PRN Reason: Heartburn Last Admin: 08/12/25 21:41 Dose: 750 mg Documented By: ESAU Ceftriaxone Sodium (Ceftriaxone Sodium 1 Gm Vial) 1 gm IVPUSH Q12H [facility] Last Admin: 08/16/25 00:30 Dose: 1 gm Documented By: YANCI Heparin Sodium (Porcine) (Heparin Sodium,Porcine 5,000 Unit/Ml Vial) 4,500 unit 40 unit/kg (4500 unit) IVPUSH PROTOCOL BOLUS PRN; Protocol PRN Reason: 40 unit/kg - Heparin Protocol Last Admin: 08/13/25 19:20 Dose: 4,500 unit Documented By: ESAU Heparin Sodium (Porcine) (Heparin Sodium,Porcine 5,000 Unit/Ml Vial) 8,900 unit 80 unit/kg (8900 unit) IVPUSH PROTOCOL BOLUS PRN; Protocol PRN Reason: 80 unit/kg - Heparin Protocol Hydromorphone HCl (Hydromorphone Hcl 0.5 Mg/0.5 Ml Syringe) 0.5 mg IVPUSH Q3H PRN; Protocol PRN Reason: Pain, Severe (Pain Scale 7-10) Last Admin: 08/15/25 22:21 Dose: 0.5 mg Documented By: YANCI Acetaminophen (Ofirmev) 1,000 mg in 100 mls @ 400 mls/hr IV Q6H PRN PRN Reason: Pain, Mild (Pain Scale 1-3) Last Infusion: 08/16/25 05:10 Dose: Infused Documented By: YANCI Metronidazole (Flagyl) 500 mg in 100 mls @ 100 mls/hr IV Q8H [facility] Last Infusion: 08/16/25 04:45 Dose: Infused Documented By: YANCI Heparin Sodium/Sodium Chloride (Heparin Sodium,Porcine/1/2ns) 25,000 unit in 250 mls @ 0 mls/hr IVCONT .Q0M [facility]; Protocol On Hold: 08/15/25 11:16 Last Titration: 08/15/25 11:14 Dose: 0 units/kg/hr, 0 mls/hr Documented By: MARY ANNE Co-signed By: VAMSI Nutrition (Parenteral) (Parenteral Nutrition) 1,920 mls @ 80 mls/hr IV .Q24H [facility]; Protocol Stop: 08/16/25 20:59 Last Admin: 08/15/25 21:55 Dose: 80 mls/hr Documented By: YANCI Nutrition (Parenteral) (Parenteral Nutrition) 1,920 mls @ 80 mls/hr IV .Q24H [facility]; Protocol Stop: 08/17/25 20:59 Magnesium Hydroxide (Milk Of Magnesia 30 Ml Oral.Susp) 30 ml PO DAILY PRN PRN Reason: Constipation Multi-Ingred Medicated Throat [place] (Throat [place], Medicated 177 Ml Bottle) 1 spray MUCOUS MEM Q2H PRN PRN Reason: sore throat Last Admin: 08/13/25 14:12 Dose: 1 spray Documented By: STEPHANE Ondansetron HCl (Ondansetron Hcl 4 Mg/2 Ml Vial) 4 mg IVPUSH QID PRN PRN Reason: Nausea Last Admin: 08/16/25 03:43 Dose: 4 mg Documented By: YANCI Pantoprazole Sodium (Pantoprazole Sodium 40 Mg/10 Ml Vial) 40 mg IVPUSH BID@0630,1630 [facility] Last Admin: 08/16/25 06:25 Dose: 40 mg Documented By: YANCI Pharmacy Consult (Consult Rx Parenteral Nutrition Ordering) 1 each MISCELLANE DAILY PRN PRN Reason: Consult order Sodium Chloride (0.9 % Sodium Chloride Flush 3 Ml Syringe) 3 ml IVFLUSH QSHIFT [facility] Last Admin: 08/16/25 08:30 Dose: Not Given Documented By: MARY ANNE Non-Admin Reason: IV Running Trazodone HCl (Trazodone Hcl 50 Mg Tablet) 50 mg PO DAILY PRN PRN Reason: Insomnia Last Admin: 08/16/25 00:51 Dose: 50 mg Documented By: YANCI Zolpidem Tartrate (Zolpidem Tartrate 5 Mg Tablet) 5 mg PO BEDTIME PRN PRN Reason: Insomnia Last Admin: 08/15/25 01:40 Dose: 5 mg Documented By: YANCI Labs 08/16/25 06:08 08/16/25 06:08 Labs: Laboratory Results - last 24 hr 08/15/25 08/15/25 08/15/25 10:28 14:37 16:30 MCV 91.2 MCH 29.7 MCHC 32.6 RDW 14.8 Plt Count 42 L MPV 11.5 Immature Gran % (Auto) 3.7 H Neut % (Auto) 81.7 H Lymph % (Auto) 6.9 L [place] % (Auto) 6.0 Eos % (Auto) 1.0 Baso % (Auto) 0.7 Lymph # (Auto) 0.9 L [place] # (Auto) 0.8 Eos # (Auto) 0.1 Baso # (Auto) 0.1 Abs Immat Gran (auto) 0.46 H Absolute Neuts (auto) 10.3 H Absolute Nucleated RBC 0.000 Nucleated RBC % (auto) 0.0 PT 13.5 H INR 1.2 H aPTT Heparin Protocol Fibrinogen Anion Gap 16 Estim Creat Clear Calc 55.8 Estimated GFR 42 Random Glucose 146 H Lactic Acid Calcium 9.3 Phosphorus Magnesium Total Bilirubin AST ALT Alkaline Phosphatase Lactate Dehydrogenase Total Protein Albumin Urine Color Urine Appearance Urine pH Ur Specific [place] Urine Protein Urine Glucose (UA) Urine Ketones Urine Blood Urine Nitrite Ur Leukocyte Esterase Urine RBC Urine WBC Ur Squamous Epith Cells Urine Bacteria Hyaline Casts Gastric Occult Blood POSITIVE Blood Type O Negative Antibody Screen NEGATIVE SANIYA, Polyspecific Positive SANIYA Work-up 08/15/25 08/15/25 08/16/25 20:15 22:21 06:08 MCV 90.2 92.0 MCH 29.8 30.0 MCHC 33.0 32.6 RDW 14.8 14.8 Plt Count 50 L 41 L MPV 12.4 10.8 Immature Gran % (Auto) 2.7 H Neut % (Auto) 82.7 H Lymph % (Auto) 7.1 L [place] % (Auto) 6.0 Eos % (Auto) 1.0 Baso % (Auto) 0.5 Lymph # (Auto) 1.0 L [place] # (Auto) 0.9 Eos # (Auto) 0.1 Baso # (Auto) 0.1 Abs Immat Gran (auto) 0.39 H Absolute Neuts (auto) 12.1 H Absolute Nucleated RBC 0.000 0.000 Nucleated RBC % (auto) 0.0 0.0 PT INR aPTT Heparin Protocol 27.1 L D Fibrinogen 686 Anion Gap 15 11 L Estim Creat Clear Calc 52.6 53.9 Estimated GFR 39 40 Random Glucose 127 H 137 H Lactic Acid 0.8 Calcium 8.9 9.4 Phosphorus 4.3 Magnesium 2.3 Total Bilirubin 0.7 AST 29 ALT 23 Alkaline Phosphatase 77 Lactate Dehydrogenase 356 H Total Protein 5.5 L Albumin 3.0 L Urine Color Dark Yellow Urine Appearance Cloudy Urine pH 8.0 Ur Specific [place] 1.025 Urine Protein 100 (2+) H Urine Glucose (UA) 100 H Urine Ketones Negative Urine Blood Negative Urine Nitrite Negative Ur Leukocyte Esterase Trace H Urine RBC 6-10 H Urine WBC 0-5 Ur Squamous Epith Cells 0-2 Urine Bacteria None Seen Hyaline Casts 0-2 Gastric Occult Blood Blood Type Antibody Screen SANIYA, Polyspecific NEGATIVE Positive SANIYA Work-up NEGATIVE Microbiology Microbiology Results: Microbiology 08/10/25 12:12 Blood Culture - Final Blood - Venous No growth after 5 days. 08/10/25 12:05 Blood Culture - Final Blood - Venous No growth after 5 days. Procedures Date of Service Date of Service: 08/16/25 Progress Note: A&P Assessment and plan (1) Antiphospholipid syndrome: Status: Acute (2) Perforation of sigmoid colon due to diverticulitis: Status: Acute (3) SBO (small bowel obstruction): Status: Acute Plan Overall patient seems much improved today after having several normal bowel movements. Abdomen is much softer with less tympany to percussion. Bloody output seems to have stopped from NG tube. Recommend repeating CT to assess improvement in his small-bowel obstruction and diverticulitis. We will perform clamping trial today to determine if NG tube can be removed. Continue PPI, PPN. May benefit from PICC line placement for blood draw and IV access. Time Spent With Patient Time: Total time managing care of this patient today ____ minutes. Quality Stroke Does the patient have a stroke diagnosis?: No VTE Prior VTE?: No VTE Risk Level:: Surgical - moderate VTE Device Contraindication: N/A - Device Ordered VTE Drug Contraindication: N/A - Med Ordered
--- NOTE | 2025-08-16 15:20 | HO.PM.IMPN ---
Subjective Subjective Date of Service: 08/16/25 Interval History: 64-year-old male with a history of antiphospholipid syndrome (APLS, triple positive, on home warfarin), pyoderma gangrenosum, hypertension, asthma, and recent perforated diverticulitis with small bowel obstruction (SBO), admitted under surgical service for conservative management. PATIENT HAS BEEN ACCEPTED TO HOSPITALIST SERVICE TRANSFER FROM SURGICAL SERVICE. NGT in place Paused suction Successful trial currently Heparin not reversed - not needed Monitoring CBC closely - no transfusion now Patient reports possibly having been diagnosed with HIT in the past. Allergy list updated. Review of Systems Review of Systems: Yes all other systems are reviewed and are negative Physical Exam Exam: Exam: General: A&O x3, oriented to time place person and situation, comfortable, no pain Cardiac: S1, S2 auscultated with no S3/4, no MRG. Well perfused. Respiratory: Normal breath sounds auscultated throughout all lung zones, without wheezing, rales. Normal rate. GI: Abdomen soft, distended, tympanic to percussion, no rebound/guarding/rigidity. NGT in place, no coffee ground emesis noted. Skin: Warm, dry, no rash Neuro: Oriented x3, no focal neurological deficits noted Extremities: No edema; lower extremity hyperpigmentation, raised painless rash. Wrapped in reg bandages MSK: Normal ambulation without pain at bony prominences or musculature Vital Signs: Vital Signs: Last Vital Signs Temp 98.4 F 08/16/25 15:04 Pulse 86 08/16/25 15:04 Resp 17 08/16/25 15:04 BP 165/76 H 08/16/25 15:04 Pulse Ox 96 08/16/25 15:04 O2 Del Method Room Air 08/16/25 15:04 BMI result Body Mass Index 37.3 Objective Data Active Medications Albuterol Sulfate (Albuterol Sulfate 90 Mcg 8 Gm Inhaler) 2 puff INHALE RQ6H PRN PRN Reason: Shortness Of Breath Or Wheezing Calcium Carbonate (Calcium Carbonate 750 Mg Tab.Chew) 750 mg PO Q4H PRN PRN Reason: Heartburn Last Admin: 08/12/25 21:41 Dose: 750 mg Documented By: LEFEBVA Ceftriaxone Sodium (Ceftriaxone Sodium 1 Gm Vial) 1 gm IVPUSH Q12H JONATHAN Last Admin: 08/16/25 12:40 Dose: 1 gm Documented By: MARY ANNE Hydromorphone HCl (Hydromorphone Hcl 0.5 Mg/0.5 Ml Syringe) 0.5 mg IVPUSH Q3H PRN; Protocol PRN Reason: Pain, Severe (Pain Scale 7-10) Last Admin: 08/15/25 22:21 Dose: 0.5 mg Documented By: YANCI Acetaminophen (Ofirmev) 1,000 mg in 100 mls @ 400 mls/hr IV Q6H PRN PRN Reason: Pain, Mild (Pain Scale 1-3) Last Infusion: 08/16/25 11:14 Dose: Infused Documented By: MARY ANNE Metronidazole (Flagyl) 500 mg in 100 mls @ 100 mls/hr IV Q8H JONATHAN Last Infusion: 08/16/25 13:40 Dose: Infused Documented By: MARY ANNE Nutrition (Parenteral) (Parenteral Nutrition) 1,920 mls @ 80 mls/hr IV .Q24H JONATHAN; Protocol Stop: 08/16/25 20:59 Last Admin: 08/15/25 21:55 Dose: 80 mls/hr Documented By: YANCI Nutrition (Parenteral) (Parenteral Nutrition) 1,920 mls @ 80 mls/hr IV .Q24H JONATHAN; Protocol Stop: 08/17/25 20:59 Magnesium Hydroxide (Milk Of Magnesia 30 Ml Oral.Susp) 30 ml PO DAILY PRN PRN Reason: Constipation Multi-Ingred Medicated Throat [place] (Throat [place], Medicated 177 Ml Bottle) 1 spray MUCOUS MEM Q2H PRN PRN Reason: sore throat Last Admin: 08/13/25 14:12 Dose: 1 spray Documented By: STEPHANE Ondansetron HCl (Ondansetron Hcl 4 Mg/2 Ml Vial) 4 mg IVPUSH QID PRN PRN Reason: Nausea Last Admin: 08/16/25 03:43 Dose: 4 mg Documented By: YANCI Pantoprazole Sodium (Pantoprazole Sodium 40 Mg/10 Ml Vial) 40 mg IVPUSH BID@0630,1630 JONATHAN Last Admin: 08/16/25 06:25 Dose: 40 mg Documented By: YANCI Pharmacy Consult (Consult Rx Parenteral Nutrition Ordering) 1 each MISCELLANE DAILY PRN PRN Reason: Consult order Sodium Chloride (0.9 % Sodium Chloride Flush 3 Ml Syringe) 3 ml IVFLUSH QSHIFT [facility] Last Admin: 08/16/25 08:30 Dose: Not Given Documented By: MARY ANNE Non-Admin Reason: IV Running Trazodone HCl (Trazodone Hcl 50 Mg Tablet) 50 mg PO DAILY PRN PRN Reason: Insomnia Last Admin: 08/16/25 00:51 Dose: 50 mg Documented By: YANCI Zolpidem Tartrate (Zolpidem Tartrate 5 Mg Tablet) 5 mg PO BEDTIME PRN PRN Reason: Insomnia Last Admin: 08/15/25 01:40 Dose: 5 mg Documented By: YANCI Labs 08/16/25 06:08 08/16/25 06:08 Labs: Laboratory Results - last 24 hr 08/15/25 08/15/25 08/15/25 14:37 16:30 20:15 MCV MCH MCHC RDW Plt Count MPV Immature Gran % (Auto) Neut % (Auto) Lymph % (Auto) [place] % (Auto) Eos % (Auto) Baso % (Auto) Lymph # (Auto) [place] # (Auto) Eos # (Auto) Baso # (Auto) Abs Immat Gran (auto) Absolute Neuts (auto) Absolute Nucleated RBC Nucleated RBC % (auto) aPTT Heparin Protocol Fibrinogen Anion Gap 16 Estim Creat Clear Calc 55.8 Estimated GFR 42 Random Glucose 146 H Lactic Acid Calcium 9.3 Phosphorus Magnesium Total Bilirubin AST ALT Alkaline Phosphatase Lactate Dehydrogenase Total Protein Albumin Urine Color Dark Yellow Urine Appearance Cloudy Urine pH 8.0 Ur Specific [place] 1.025 Urine Protein 100 (2+) H Urine Glucose (UA) 100 H Urine Ketones Negative Urine Blood Negative Urine Nitrite Negative Ur Leukocyte Esterase Trace H Urine RBC 6-10 H Urine WBC 0-5 Ur Squamous Epith Cells 0-2 Urine Bacteria None Seen Hyaline Casts 0-2 Blood Type O Negative Antibody Screen NEGATIVE SANIYA, Polyspecific Positive SANIYA Work-up 08/15/25 08/16/25 22:21 06:08 MCV 90.2 92.0 MCH 29.8 30.0 MCHC 33.0 32.6 RDW 14.8 14.8 Plt Count 50 L 41 L MPV 12.4 10.8 Immature Gran % (Auto) 2.7 H Neut % (Auto) 82.7 H Lymph % (Auto) 7.1 L [place] % (Auto) 6.0 Eos % (Auto) 1.0 Baso % (Auto) 0.5 Lymph # (Auto) 1.0 L [place] # (Auto) 0.9 Eos # (Auto) 0.1 Baso # (Auto) 0.1 Abs Immat Gran (auto) 0.39 H Absolute Neuts (auto) 12.1 H Absolute Nucleated RBC 0.000 0.000 Nucleated RBC % (auto) 0.0 0.0 aPTT Heparin Protocol 27.1 L D Fibrinogen 686 Anion Gap 15 11 L Estim Creat Clear Calc 52.6 53.9 Estimated GFR 39 40 Random Glucose 127 H 137 H Lactic Acid 0.8 Calcium 8.9 9.4 Phosphorus 4.3 Magnesium 2.3 Total Bilirubin 0.7 AST 29 ALT 23 Alkaline Phosphatase 77 Lactate Dehydrogenase 356 H Total Protein 5.5 L Albumin 3.0 L Urine Color Urine Appearance Urine pH Ur Specific [place] Urine Protein Urine Glucose (UA) Urine Ketones Urine Blood Urine Nitrite Ur Leukocyte Esterase Urine RBC Urine WBC Ur Squamous Epith Cells Urine Bacteria Hyaline Casts Blood Type Antibody Screen SANIYA, Polyspecific NEGATIVE Positive SANIYA Work-up NEGATIVE Microbiology Microbiology Results: Microbiology 08/10/25 12:12 Blood Culture - Final Blood - Venous No growth after 5 days. 08/10/25 12:05 Blood Culture - Final Blood - Venous No growth after 5 days. 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 APLS / Anticoagulation Possible heparin induced thrombocytopenia History of triple-positive antiphospholipid syndrome, previously on therapeutic warfarin (held for possible surgery), transitioned to heparin drip. Now with new upper GI bleeding and significant thrombocytopenia (platelets 50, down from 60), raising concern for heparin-induced thrombocytopenia (HIT) vs other MAHA. The patient reports that he may have had a history of HIT in the past HEPARIN PRODUCTS ARE NOW CONSIDERED CONTRAINDICATED IN HIS CASE - FOR ANTICOAGULAR, TRANSITION BACK TO WARFARIN WITH ARGATROBAN BRIDGE. PLAN: - Heparin drip held; no protamine sulfate administered - HIT panel (PF4 MARLEN) and hemolysis studies pending. - Hematology consult for guidance on anticoagulation. - If HIT confirmed, initiate non-heparin anticoagulant (e.g., argatroban or bivalirudin). - Resume anticoagulation when GI bleeding is controlled, in coordination with hematology and GI. - we will need to be restarted on warfarin with a goal INR 2-3 - Will likely require an argatroban bridge Perforated Sigmoid Diverticulitis with SBO Admitted with perforated diverticulitis and small bowel obstruction, managed conservatively. Abdominal pain improved, but distention persists; no peritoneal signs at present. PLAN: - Continue NPO, IV fluids, and IV antibiotics (ceftriaxone and metronidazole). - Serial abdominal exams. - Monitor for clinical deterioration or peritonitis; escalate to surgery if indicated. Upper GI Bleed New coffee-ground NG tube output, positive gastric occult blood, and hemoglobin drop (15 ? 13.9) while on anticoagulation. PLAN: - Continue IV pantoprazole. - GI consult for EGD. - Monitor Hgb and transfuse PRN. - Maintain NPO and supportive care. Thrombocytopenia Platelets decreased from 60 to 47-50, likely multifactorial (HIT, sepsis, DIC, or consumptive process). PLAN: - Monitor CBC and trend platelets. - Hemolysis labs pending. - Hematology consult for further evaluation and management. Acute Kidney Injury (GALEN) Stable creatinine and eGFR, likely prerenal from poor oral intake/dehydration, now improving with IV fluids. PLAN: - Continue IV fluids. - Monitor renal function and electrolytes. Pyoderma Gangrenosum Chronic bilateral lower extremity wounds, managed by spouse (wound care nurse). PLAN: - Continue current wound care regimen. - Wound care consult in place. Hypertension Mildly elevated but stable blood pressure. PLAN: - Held home losartan Asthma No acute exacerbation. PLAN: - Albuterol PRN. QUALITY METRICS - VTE: SCDs - will require resumption of warfarin with goal INR 2-3, and argatroban bridge - CODE STATUS: Full code - DIET: NPO Total time managing care of this patient today: 45 minutes. Quality Stroke Does the patient have a stroke diagnosis?: No VTE Prior VTE?: No VTE Risk Level:: Surgical - moderate VTE Device Contraindication: N/A - Device Ordered VTE Drug Contraindication: N/A - Med Ordered
[2025-08-16] MEDS: Parenteral Nutrition 1,920 ML 80 ML IV (21:44)
[2025-08-17] VITALS: BP 156/95; PULSE 91; RESP 20; TEMP 36.6; O2SAT 95
[2025-08-17] MEDS: metroNIDAZOLE/NS 500 MG/100 ML PIGGYBACK 100 MG IV ×2 (03:44→12:10)
[2025-08-17 05:22] VITALS: BP 151/95; PULSE 107; RESP 18; TEMP 37.1; O2SAT 93
[2025-08-17 06:12] LABS: Anion Gap 13 (12-20); Blood Urea Nitrogen 44 mg/dL (9-16); Calcium 9.1 mg/dL (8.4-10.2); Carbon Dioxide 28 mmol/L (22-29); Chloride 98 mmol/L (96-108); Creatinine Clr Calc Pharmacy 51.2; Estimated Glomerular Filt Rate 38; Magnesium 2.0 mg/dL (1.6-2.6); Potassium 4.5 mmol/L (3.3-5.1); Sodium 134 mmol/L (135-145)
[2025-08-17 08:00] VITALS: BP 152/102; PULSE 98; RESP 18; TEMP 37.2; O2SAT 95
[2025-08-17] MEDS: 0.9 % Sodium Chloride Flush 3 ML SYRINGE IVFLUSH ×3 (08:49→20:21)
--- NOTE | 2025-08-17 10:32 | MHC.CLN ---
F/U DIET ADVANCED TO FULL LIQUIDS 08/17. CONTINUE WITH PPN. REVIEWED LABS. COMMUNICATED WITH PHARMACY. RECOMMEND CONTINUE PPN AT MAX GOAL RATE OF 80ML/HR WITH 64G LIPIDS TO PROVIDE 1619 TOTAL KCALS (23KCALS/KG IBW), 192G DEXTROSE, 82G PROTEIN (1.2G/KG IBW). REPLETE LYTES NEEDED. GOAL TO DECREASE PPN PO IMPROVES AND DIET ADVANCES.
[2025-08-17 11:50] VITALS: BP 136/98; PULSE 93; RESP 16; TEMP 36.9; O2SAT 94
--- NOTE | 2025-08-17 12:37 | MHC.CLN ---
F/U DIET ADVANCED TO FULL LIQUIDS 08/17. PPN DISCONTINUED THIS MORNING. VISITED WITH PATIENT AND CONFIRMED. FOLLOW FOR DIET ADVANCEMENT AND PO INTAKE.
--- NOTE | 2025-08-17 12:56 | HE.PHANOTE ---
Re Warfarin Spoke with Dr Pavon about restarting warfarin with a bridge. Pt has potential HIT on their allergy list but could be a false reaction. Dr Leon is going to ask Hematology to look into it for Lovenox vs Fondaparinux for bridging.
[2025-08-17 13:46] LABS: INTERNATIONAL NORM RATIO 1.2 (0.9-1.1); Prothrombin Time 13.5 SEC (10.9-12.4)
--- NOTE | 2025-08-17 14:07 | P.PNIM_ITS ---
Subjective Subjective Date of Service: 08/17/25 Interval History: 64-year-old male with a history of antiphospholipid syndrome (APLS, triple positive, on home warfarin), pyoderma gangrenosum, hypertension, asthma, and recent perforated diverticulitis with small bowel obstruction (SBO), admitted under surgical service for conservative management, and later transfered to hospitalist services. He has been on TPN and started liquid diet 08/16. Was bridged heparin which raised concern for HIT, he has h/o of HIT? testing pending Review of Systems Review of Systems: Yes all other systems are reviewed and are negative Physical Exam 2 Exam: Exam: General: AO X 3, no acute distress Resp: CTA bilateral CVS: S1,S2,RRR GI: +BS, NT, no distention Skin: No rash Neuro: motor grossly intact Psych: appropriate affect Vital Signs: Vital Signs: Last Vital Signs Temp 98.5 F 08/17/25 11:50 Pulse 93 08/17/25 11:50 Resp 16 08/17/25 11:50 BP 136/98 H 08/17/25 11:50 Pulse Ox 94 08/17/25 11:50 O2 Del Method Room Air 08/17/25 11:50 BMI result Body Mass Index 37.3 Objective Data Active Medications Albuterol Sulfate (Albuterol Sulfate 90 Mcg 8 Gm Inhaler) 2 puff INHALE RQ6H PRN PRN Reason: Shortness Of Breath Or Wheezing Calcium Carbonate (Calcium Carbonate 750 Mg Tab.Chew) 750 mg PO Q4H PRN PRN Reason: Heartburn Last Admin: 08/12/25 21:41 Dose: 750 mg Documented By: ESAU Ceftriaxone Sodium (Ceftriaxone Sodium 1 Gm Vial) 1 gm IVPUSH Q12H [facility] Last Admin: 08/17/25 12:05 Dose: 1 gm Documented By: JESSICA Hydromorphone HCl (Hydromorphone Hcl 0.5 Mg/0.5 Ml Syringe) 0.5 mg IVPUSH Q3H PRN; Protocol PRN Reason: Pain, Severe (Pain Scale 7-10) Last Admin: 08/15/25 22:21 Dose: 0.5 mg Documented By: YANCI Acetaminophen (Ofirmev) 1,000 mg in 100 mls @ 400 mls/hr IV Q6H PRN PRN Reason: Pain, Mild (Pain Scale 1-3) Last Infusion: 08/17/25 09:27 Dose: Infused Documented By: JESSICA Metronidazole (Flagyl) 500 mg in 100 mls @ 100 mls/hr IV Q8H [facility] Last Infusion: 08/17/25 14:01 Dose: Infused Documented By: JESSICA Magnesium Hydroxide (Milk Of Magnesia 30 Ml Oral.Susp) 30 ml PO DAILY PRN PRN Reason: Constipation Multi-Ingred Medicated Throat [place] (Throat [place], Medicated 177 Ml Bottle) 1 spray MUCOUS MEM Q2H PRN PRN Reason: sore throat Last Admin: 08/13/25 14:12 Dose: 1 spray Documented By: STEPHANE Ondansetron HCl (Ondansetron Hcl 4 Mg/2 Ml Vial) 4 mg IVPUSH QID PRN PRN Reason: Nausea Last Admin: 08/17/25 08:46 Dose: 4 mg Documented By: JESSICA Pantoprazole Sodium (Pantoprazole Sodium 40 Mg/10 Ml Vial) 40 mg IVPUSH BID@0630,1630 [facility] Last Admin: 08/17/25 06:14 Dose: 40 mg Documented By: YANCI Sodium Chloride (0.9 % Sodium Chloride Flush 3 Ml Syringe) 3 ml IVFLUSH QSHIFT [facility] Last Admin: 08/17/25 08:49 Dose: 3 ml Documented By: JESSICA Trazodone HCl (Trazodone Hcl 50 Mg Tablet) 50 mg PO DAILY PRN PRN Reason: Insomnia Last Admin: 08/16/25 21:46 Dose: 50 mg Documented By: YANCI Warfarin Sodium (Warfarin Sodium 10 Mg Tablet) 10 mg PO MoWeFr@1800 [facility] Warfarin Sodium (Warfarin Sodium 5 Mg Tablet) 5 mg PO SuTuThSa@1800 [facility] Zolpidem Tartrate (Zolpidem Tartrate 5 Mg Tablet) 5 mg PO BEDTIME PRN PRN Reason: Insomnia Last Admin: 08/15/25 01:40 Dose: 5 mg Documented By: YANCI Labs 08/16/25 06:08 08/17/25 05:33 Labs: Laboratory Results - last 24 hr 08/17/25 08/17/25 05:33 13:23 PT 13.5 H INR 1.2 H Anion Gap 13 Estim Creat Clear Calc 51.2 Estimated GFR 38 Random Glucose 120 H Calcium 9.1 Phosphorus 3.3 Magnesium 2.0 Microbiology Microbiology Results: Microbiology 08/10/25 12:12 Blood Culture - Final Blood - Venous No growth after 5 days. 08/10/25 12:05 Blood Culture - Final Blood - Venous No growth after 5 days. 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 APLS / Anticoagulation Possible heparin induced thrombocytopenia, arguing against this is the fact that he came in with low plat and and has decreased modestly. At any event. Heparin was stopped and HIT w/u sent. Heparin was reported stopped because of upper GI bleeding, coincing with low plat. Plat presently 42 was 70s on admission. Warfarin has been on hold as . At this need further clarification diagnosis with Heme and GI eval, in the meantime plan to resume coumadin today, and will hod of bridging for now Perforated Sigmoid Diverticulitis with SBO, managed conservatively, NGT removed and diet advanced. TPN will be stopped once diet advanced Upper GI Bleed--seen by GI with the following 1/ self limited bloody putput from NGT likely from mucosal trauma combined possibly from HIT 2/ concern for perf divertciulitis and SBO from tethered small bowel, ddx: crohns eleazar given the Pyoderma gangrenosum dx PLAN: 1/ use alternative non heparin based AC 2/ cont with PPI as enhances clot formation, 3/ pull NGT when appropriate 4/ hold on EGD unless has recurrent bleeding Thrombocytopenia Platelets decreased from 60 to 47-50, likely multifactorial (?HIT, sepsis, DIC, or consumptive process). PLAN: - Monitor CBC and trend platelets. - Hemolysis labs pending. - Hematology consult for further evaluation and management. Acute Kidney Injury (GALEN) on CKD3 Stable Pyoderma Gangrenosum Chronic bilateral lower extremity wounds, managed by spouse (wound care nurse). - Continue current wound care regimen. - Wound care consult in place. Hypertension Mildly elevated but stable blood pressure. - Held home losartan Asthma No acute exacerbation. PLAN: - Albuterol PRN. QUALITY METRICS - VTE: SCDs - will require resumption of warfarin with goal INR 2-3, and argatroban bridge - CODE STATUS: Full code - DIET: Full liquid Total time managing care of this patient today: 45 minutes. Quality Stroke Does the patient have a stroke diagnosis?: No VTE Prior VTE?: No VTE Risk Level:: Surgical - moderate VTE Device Contraindication: N/A - Device Ordered VTE Drug Contraindication: N/A - Med Ordered
[2025-08-17 15:41] VITALS: BP 137/83; PULSE 93; RESP 16; TEMP 36.8; O2SAT 94
--- NOTE | 2025-08-17 16:14 | PM.HEMONCCN ---
Subjective - Subjective Chief complaint: Low platelets Patient: new to practice Consult date: 08/17/25 Primary Care Provider: Jeremías Knox MD [employer] Utilized?: No - French Speaking HPI - Consult Narrative Reason for consult: Thrombocytopenia/? HIT Narrative: Alejandro Correa is a 64 year old male with past medical history significant for antiphospholipid syndrome and left lower extremity DVT diagnosed almost 20 years ago who is admitted for bowel perforation secondary to diverticulitis. He has been on warfarin for all this time and he says he has never had a recurrent clot. He was diagnosed with left leg pyoderma gangrenosum. He is being managed by checking clerk from [facility] at [facility]. Patient was taken off warfarin in anticipation of possible surgery during this admission. However he is improving with conservative management and surgery has been deferred. His platelet counts his slowly decline from 76 K on admission to current value of 41 K. He was on heparin from 08/11 to 08/15/2025. Patient denies any past medical history of heparin induced thrombocytopenia or heparin allergy. [facility] Medical History: Medical History (Last Updated 08/15/25 @ 17:25 by David Perez MD) Antiphospholipid syndrome Onset Date: Unknown Pyoderma gangrenosum Social History: Social History Living Situation History: Household Members: Spouse Housing: House Do you presently have visiting nurse or other home services: No Alcohol History Details: 1. How often do you have a drink containing alcohol?: b. Monthly or less 2. How many drinks containing alcohol do you have on a typical day when you are drinking?: a. 1 or 2 3. How often do you have six or more drinks on one occasion?: a. Never AUDIT-C Alcohol total score: 1 Currently Displaying Signs/Symptoms of Alcohol Withdrawal: No Tobacco History: Patient Tobacco Use Status: Never used Tobacco Substance Use History: Currently Displaying Signs/Symptoms of Drug Intoxication Withdrawal: No Domestic Abuse History: Have you been hit, kicked, punched, or otherwise hurt by someone within the past year? If so, by whom?: No Do you feel safe in your current relationship?: No Current Relationship Is there a partner from a previous relationship who is making you feel unsafe now?: No Are you made to feel afraid or neglected: No Advance Directives: Advance Directives: No Advance Directives Information Provided: Yes Advance Directives on File: No Homicidal Assessment: Do you have a plan to hurt others: No Plan Nutrition Assessment: Recently lost weight without trying: No Eating poorly because of decreased appetite: No Nutrition Risks: No Nutritional Risk Occupation Assessmet: service: No Home Medications and Allergies Current Medications: Current Medications Albuterol Sulfate (Albuterol Sulfate 90 Mcg 8 Gm Inhaler) 2 puff INHALE RQ6H PRN PRN Reason: Shortness Of Breath Or Wheezing Calcium Carbonate (Calcium Carbonate 750 Mg Tab.Chew) 750 mg PO Q4H PRN PRN Reason: Heartburn Last Admin: 08/12/25 21:41 Dose: 750 mg Ceftriaxone Sodium (Ceftriaxone Sodium 1 Gm Vial) 1 gm IVPUSH Q12H [facility] Last Admin: 08/17/25 12:05 Dose: 1 gm Hydromorphone HCl (Hydromorphone Hcl 0.5 Mg/0.5 Ml Syringe) 0.5 mg IVPUSH Q3H PRN; Protocol PRN Reason: Pain, Severe (Pain Scale 7-10) Last Admin: 08/15/25 22:21 Dose: 0.5 mg Acetaminophen (Ofirmev) 1,000 mg in 100 mls @ 400 mls/hr IV Q6H PRN PRN Reason: Pain, Mild (Pain Scale 1-3) Last Infusion: 08/17/25 09:27 Dose: Infused Metronidazole (Flagyl) 500 mg in 100 mls @ 100 mls/hr IV Q8H [facility] Last Infusion: 08/17/25 14:01 Dose: Infused Magnesium Hydroxide (Milk Of Magnesia 30 Ml Oral.Susp) 30 ml PO DAILY PRN PRN Reason: Constipation Multi-Ingred Medicated Throat [place] (Throat [place], Medicated 177 Ml Bottle) 1 spray MUCOUS MEM Q2H PRN PRN Reason: sore throat Last Admin: 08/13/25 14:12 Dose: 1 spray Ondansetron HCl (Ondansetron Hcl 4 Mg/2 Ml Vial) 4 mg IVPUSH QID PRN PRN Reason: Nausea Last Admin: 08/17/25 08:46 Dose: 4 mg Pantoprazole Sodium (Pantoprazole Sodium 40 Mg/10 Ml Vial) 40 mg IVPUSH BID@0630,1630 [facility] Last Admin: 08/17/25 15:49 Dose: 40 mg Sodium Chloride (0.9 % Sodium Chloride Flush 3 Ml Syringe) 3 ml IVFLUSH QSHIFT [facility] Last Admin: 08/17/25 16:05 Dose: 3 ml Trazodone HCl (Trazodone Hcl 50 Mg Tablet) 50 mg PO DAILY PRN PRN Reason: Insomnia Last Admin: 08/16/25 21:46 Dose: 50 mg Warfarin Sodium (Warfarin Sodium 10 Mg Tablet) 10 mg PO MoWeFr@1800 [facility] Warfarin Sodium (Warfarin Sodium 5 Mg Tablet) 5 mg PO SuTuThSa@1800 [facility] Zolpidem Tartrate (Zolpidem Tartrate 5 Mg Tablet) 5 mg PO BEDTIME PRN PRN Reason: Insomnia Last Admin: 08/15/25 01:40 Dose: 5 mg Home Medications ?Medication ?Instructions ?Recorded ?Confirmed ?Type Tumeric 500 mg PO DAILY 08/10/25 08/10/25 History albuterol sulfate 90 mcg/actuation 2 inh inhalation Q6H PRN Shortness 08/10/25 08/10/25 History breath activated powder inhaler Of Breath Or Wheezing cetirizine 10 mg tablet 10 mg PO DAILY 08/10/25 08/10/25 History cholecalciferol (vitamin D3) 25 100 mcg PO DAILY 08/10/25 08/10/25 History mcg (1,000 unit) chewable tablet (Vitamin D3) clobetasol 0.05 % topical cream 1 g topical DAILY 08/10/25 08/10/25 History fluticasone propionate 50 1 spray intranasal DAILY PRN 08/10/25 08/10/25 History mcg/actuation nasal Allergy Symptoms spray,suspension furosemide 40 mg tablet 40 mg PO DAILY 08/10/25 08/10/25 History losartan 100 mg tablet 100 mg PO DAILY 08/10/25 08/10/25 History omeprazole 20 mg capsule,delayed 20 mg PO SUTUTHSA@0630 08/10/25 08/10/25 History release trazodone 50 mg tablet 50 mg PO DAILY PRN Insomnia 08/10/25 08/10/25 History warfarin 5 mg tablet 5 mg PO SUTUTHSA 08/10/25 08/10/25 History warfarin 5 mg tablet 10 mg PO MOWEFR 08/10/25 08/10/25 History Allergies Allergy/AdvReac Type Severity Reaction Status Date / Time heparin Allergy Severe heparin Verified 08/16/25 10:44 induced thrombocytopenia bacitracin Allergy Unknown Verified 08/10/25 09:38 celecoxib (From Celebrex) Allergy Unknown Verified 08/10/25 09:38 cephalexin (From Keflex) Allergy Unknown Verified 08/10/25 09:38 sulfacetamide (From Allergy Unknown Verified 08/10/25 09:38 Sulfamide) sulfamethoxazole (From Allergy Unknown Verified 08/10/25 09:38 Bactrim) trimethoprim (From Bactrim) Allergy Unknown Verified 08/10/25 09:38 Physical Exam Vital signs: Vital Signs Temp 98.2 F 08/17/25 15:41 Pulse 93 08/17/25 15:41 Resp 16 08/17/25 15:41 BP 137/83 08/17/25 15:41 Pulse Ox 94 08/17/25 15:41 O2 Del Method Room Air 08/17/25 15:41 Intake & Output 08/16/25 08/17/25 08/17/25 18:59 06:59 18:59 Intake Total 840 / 4246.667 3406.667 / 4246.667 1542.667 / 1542.667 Balance 840 / 4246.667 3406.667 / 4246.667 1542.667 / 1542.667 Intake: Intake, Oral Amount 540 / 1740 1200 / 1740 400 / 400 Intake, IV Amount 300 / 2506.667 2206.667 / 2506.667 1142.667 / 1142.667 Acetaminophen 1,000 mg In 100 200 / 300 100 / 300 100 / 100 ml @ 400 mls/hr IV Q6H PRN Rx#: [id number] Parenteral Nutrition 1,920 ml @ 1906.667 / 1906.667 942.667 / 942.667 80 mls/hr IV .Q24H JONATHAN Rx#: [id number] metroNIDAZOLE/NS 500 mg In 100 100 / 300 200 / 300 100 / 100 ml @ 100 mls/hr IV Q8H JONATHAN Rx#: [id number] Heparin Sodium,Porcine/1/2NS 25 0 / 0 ,000 unit In 250 ml @ Per Protocol IVCONT .Q0M JONATHAN Rx#: [id number] Other: Meal Refused No NPO No Lunch % Eaten 25% Dinner % Eaten 100% Eating (Feeding) Ability Independent Independent Number of Unmeasured Voids 2 2 Number of Bowel Movements 0 Urine Bathroom Bathroom Last Bowel Movement 08/17/25 08/17/25 Weight 111.4 kg - Constitutional Present: no acute distress - Routine HEENT Exam Eye: Present: EOMI, PERRL - Routine Neck Exam Present: supple. Absent: lymphadenopathy - Routine Respiratory Exam Present: CTAB - Routine Cardiovascular Exam Cardiovascular: Present: RRR, S2 - Routine Abdominal Exam Present: soft - Routine Skin Exam Present: intact. Absent: petechiae Hem/Onc Consult Result - Labs CBC & Chem 7: 08/16/25 06:08 08/17/25 05:33 Labs: BMP 08/17/25 05:33 Sodium 134 L Potassium 4.5 Chloride 98 Carbon Dioxide 28 BUN 44 H Creatinine 1.81 H Calcium 9.1 Assessment and Plan Patient Active problem list reviewed?: Yes (1) Thrombocytopenia Status: Chronic Assessment and plan: 1. This is a 64-year-old male who has been admitted for small bowel obstruction, perforated diverticulitis who was noted to have acute worsening of chronic thrombocytopenia. His past medical history significant for triple positive antiphospholipid antibody syndrome. He was diagnosed with left lower extremity DVT nearly 20 years ago. He has been on warfarin ever since and managed by checking clerk at [facility]. He has never had a recurrence of DVT. Although he was not aware of thrombocytopenia in the past, he did show me his labs on his portal from [facility] from a year ago. His platelets have ranged from 70-100 K. On admission to the hospital his platelets were 60 K and gradually they have declined to 41 K. the decline in platelet count is not consistent with heparin induced thrombocytopenia or HIT. He scores zero points on the 4 T-score, therefore low risk. Decline in platelets is more likely related to underlying infection and use of antibiotics. Patient can be restarted on warfarin. Ideally, he would need to be bridged with heparin but for that he will have to be monitored for a few days in the hospital since his platelets counts have declined. He was advised to follow up with his checking clerk within a week of his discharge. Thank you for the consultation. - Time Spent With Patient Time Spent with Patient (in minutes): 30
[2025-08-17 19:39] VITALS: BP 143/89; PULSE 92; RESP 18; TEMP 37.2; O2SAT 95
[2025-08-18 04:00] VITALS: BP 152/95; PULSE 100; RESP 18; TEMP 37.1; O2SAT 96
[2025-08-18 05:54] LABS: INTERNATIONAL NORM RATIO 1.2 (0.9-1.1); Prothrombin Time 14.0 SEC (10.9-12.4)
[2025-08-18 06:05] LABS: Anion Gap 14 (12-20); Blood Urea Nitrogen 42 mg/dL (9-16); Calcium 8.7 mg/dL (8.4-10.2); Carbon Dioxide 25 mmol/L (22-29); Chloride 100 mmol/L (96-108); Creatinine Clr Calc Pharmacy 48.2; Estimated Glomerular Filt Rate 36; Magnesium 1.9 mg/dL (1.6-2.6); Potassium 4.3 mmol/L (3.3-5.1); Sodium 135 mmol/L (135-145)
[2025-08-18 07:23] VITALS: BP 127/76; PULSE 97; RESP 16; TEMP 36.7; O2SAT 96
[2025-08-18] MEDS: 0.9 % Sodium Chloride Flush 3 ML SYRINGE IVFLUSH (07:54)
--- NOTE | 2025-08-18 08:09 | P.CDIM_ITS ---
PROVIDER RESPONSE TEXT: To clarify, the appropriate diagnosis supported by the clinical indicators: Partial SBO QUERY TEXT: PHYSICIAN'S DOCUMENTATION REQUEST Date of Query: 08/12/2025 10:56 AM EDT Patient Name: Alejandro Correa Admit Date: 08/10/2025 Dear Gallito Razo MD, A review of the medical record indicates additional documentation may be needed. Please review below and update the documentation accordingly. Clinical Indicators: admitted with abdominal pain Diverticulitis of large intestine with contained perforation Also has tethering of SB to the area causing some degree of SBO The following diagnoses or signs and symptoms were noted in the patient record: IV Rocephin Q12H, IVF Based on the above, could you clarify the appropriate diagnosis, if significant, that supports the above abnormalities and additional evaluation, monitoring, and/or treatment rendered: Partial SBO Complete SBO Other (explain) Clinically unable to determine (explain) Thank you, Karen Carbajal RN Use of terms such as suspected, likely, concern for, or probable (associated with a specific diagnosis that is being evaluated, monitored, or treated as if it exists) are acceptable and can be coded in the inpatient setting, when documented at the time of discharge. Please use your independent medical judgment in providing your response. THIS QUERY IS PART OF THE PERMANENT MEDICAL RECORD
--- NOTE | 2025-08-18 10:42 | PM.DS ---
DS: Providers Provider Date of Service: 08/18/25 Date of admission: 08/10/25 14:17 Date of discharge: 08/18/25 Primary care physician: Jeremías Knox MD Consults: 08/15/25 11:16 Consult to Gastroenterology Routine Consulting Provider: [facility] Gastroenterology Services Reason for consultation: UGI Bleeding Has provider been notified: No 08/15/25 17:17 Consult to Hematology / Oncology Stat Consulting Provider: [facility] Oncology/Hematology Reason for consultation: APLS 3+, SBO, on heparin, new coffee ground hematemesis Has provider been notified: No 08/16/25 10:51 Consult to General Surgery Routine Consulting Provider: [facility] General Surgeons Reason for consultation: sbo Has provider been notified: Yes 08/17/25 12:03 Consult to Hematology / Oncology Routine Consulting Provider: [facility] Oncology/Hematology Reason for consultation: Thrombocytopenia ? HIT DS: Diagnosis Discharge Diagnosis (1) Thrombocytopenia: Status: Chronic DS: Summary Hospital Course Hospital Course: admission hpi Chief complaint: abd pain Narrative: Alejandro Correa is a 64 year old male with a past medical history of antiphospholipid syndrome on Coumadin presenting with a 48 hour history of abdominal pain located in the left lower quadrant which is increasing in severity. He initially reported feeling bloated for the past several weeks and developing increased constipation which is unusual for him. Over the weekend it became more sharp and localized to the left lower quadrant and increased with movement. He reports being on ibuprofen for pain in his left leg due to a pyoderma gangrenosum lesion which was recently diagnosed. He undergoes outpatient wound care treatment for this leg wound but continues to have severe pain associated with the lesion. Patient presented to the emergency department because of the increased abdominal pain. He was found to have stable vital signs but was exquisitely tender in the lower abdomen. Laboratories revealed an elevated WBC of 17.1, and a platelet count of 76. PT 41.7, INR 3.6, BUN 56, creatinine 2.06, lactic acid 0.7. CT abdomen and pelvis revealed evidence of hemoperitoneum suggestive of a bowel perforation most likely from a sigmoid diverticulitis. Areas of the inflammation are identified in the proximal sigmoid colon/descending colon with a small fluid collection without a definite abscess. Patient was admitted to the surgical service for further management of this perforated sigmoid diverticulitis. He denies a previous history of diverticular disease. hospital course: 64-year-old male with a history of antiphospholipid syndrome (APLS, triple positive, on home warfarin), pyoderma gangrenosum, hypertension, asthma, and recent perforated diverticulitis with small bowel obstruction (SBO), admitted under surgical service for conservative management, and later transfered to hospitalist services. He has been on TPN and started liquid diet 08/16. Was bridged heparin which raised concern for HIT, he has h/o of HIT? APLS / Anticoagulation Possible heparin induced thrombocytopenia, arguing against this is the fact that he came in with low plat and and has decreased modestly. At any event. Heparin was stopped and HIT w/u sent. Heparin was reported stopped because of upper GI bleeding, coincing with low plat. Plat presently 42 was 70s on admission. Warfarin has been on hold as . At this need further clarification diagnosis with Heme and GI eval, in the meantime plan to resume coumadin today, and will hod of bridging for now Perforated Sigmoid Diverticulitis with SBO, managed conservatively, NGT removed and diet advanced without intervention, was on TPN which hsa since been stopped. He has been on broad spec Abx with Ceftriaxone and Flagyl and will transition to oral Augmentin for total of 10 days and is to followed up with surgery in 2 weeks Upper GI Bleed--seen by GI with the following 1/ self limited bloody putput from NGT likely from mucosal trauma combined possibly from HIT 2/ concern for perf divertciulitis and SBO from tethered small bowel, ddx: crohns eleazar given the Pyoderma gangrenosum dx PLAN: 1/ use alternative non heparin based AC 2/ cont with PPI as enhances clot formation, 3/ pull NGT when appropriate 4/ hold on EGD unless has recurrent bleeding Thrombocytopenia Platelets decreased from 60 to 47-50, likely multifactorial (?HIT, sepsis, DIC, or consumptive process). He has baseline chronic thrombocytopenia. He presented with plat of 72 and dropped to 60 the following day before heparin being initiated and subsequently Plat dropped to a low of 42 and in the interim had some bleeding issue as discussed above. HIT concern was raised but doesn't quite fit pattern, at any event heparin was discontinued and HIT work up sent. He presently does not have any bleeding issues, he's stable. He was seen by hematology and proposal made for continue coumadin alone, coumadin bridging with levenox and serial H/H, or agtropan and coumadin until INR therapeutic, he has opted to go with coumadin and follow up with coumadin clinic and also advised to follow up with his manager programs. Acute Kidney Injury (GALEN) on CKD3 Stable Pyoderma Gangrenosum Chronic bilateral lower extremity wounds, managed by spouse (wound care nurse). -resume outpatient treatment Hypertension Mildly elevated but stable blood pressure. can resume Losartan Asthma No acute exacerbation. Dispo: home Time Attestation Discharge Coordination Time (in mins): 45 Quality: Safe Use of Opioids Does Pt have an Active Cancer Diagnosis on the Problem List?: No Quality: Stroke Does the patient have a stroke diagnosis?: No Physical Exam Vital Signs: Vital Signs: Last Vital Signs Temp 98.1 F 08/18/25 07:23 Pulse 97 08/18/25 07:23 Resp 16 08/18/25 07:23 BP 127/76 08/18/25 07:23 Pulse Ox 96 08/18/25 07:23 O2 Del Method Room Air 08/18/25 07:23 BMI result Body Mass Index 37.3 DS: Data Data Completed and Pending Labs on day of discharge: Laboratory Results - last 24 hr 08/17/25 08/18/25 13:23 05:35 PT 13.5 H 14.0 H INR 1.2 H 1.2 H Sodium 135 Potassium 4.3 Chloride 100 Carbon Dioxide 25 Anion Gap 14 BUN 42 H Creatinine 1.92 H Estim Creat Clear Calc 48.2 Estimated GFR 36 Random Glucose 117 H Calcium 8.7 Phosphorus 2.7 Magnesium 1.9 Discharge Plan Discharge Anticipated Discharge Date/Time: 08/18/25 11:28 Patient Disposition: Home, Self-Care Discharge Diagnosis: perforated diverticulitis, thrombocytopenia Referrals: Jeremías Knox MD [Primary Care Provider, Medical] - 1 Week Gallito Razo MD [Physician, General Surgery] - 2 Weeks Discharge Medications: New amoxicillin-pot clavulanate 875-125 mg Tablet 1 tab PO Q12H Qty: 8 0RF oxycodone 5 mg capsule 5 mg PO Q6H PRN (Reason: pain (scale score 7-10)) Qty: 14 0RF Rx Instructions: Partial Fill upon patient request. Continued furosemide 40 mg tablet 40 mg PO DAILY trazodone 50 mg Tablet 50 mg PO DAILY PRN (Reason: Insomnia) cetirizine 10 mg Tablet 10 mg PO DAILY clobetasol 0.05 % cream 1 g topical DAILY warfarin 5 mg tablet 10 mg PO MOWEFR warfarin 5 mg tablet 5 mg PO SUTUTHSA omeprazole 20 mg Capsule,Delayed Release(Dr/Ec) 20 mg PO SUTUTHSA@0630 losartan 100 mg tablet 100 mg PO DAILY fluticasone propionate [Flonase] 50 mcg/actuation [place],Suspension 1 spray INTRANASAL DAILY PRN (Reason: Allergy Symptoms) Rx Instructions: administer into each nostril cholecalciferol (vitamin D3) [Vitamin D3] 25 mcg (1,000 unit) Tablet,Chewable 100 mcg PO DAILY albuterol sulfate 90 mcg/actuation Aerosol Powdr Breath Activated 2 inh INHALATION Q6H PRN (Reason: Shortness Of Breath Or Wheezing) Tumeric 500 mg 500 mg PO DAILY Discharge Orders: Discharge Order (Routine); Ordered 08/18/25 Ordered By: Darrick malika Diet: Advance to usual diet Activity on Discharge: As tolerated Stand Alone Forms: Patient Portal Discharge page, Work/School Release Print Language: [place] Care Plan Goals: recovery from perforated diverticulitis Health Concerns: perforated diverticulitis thrombocytopenia antiphospholipid antibody syndrome Pyoderma gangrenosum Plan of Treatment: take Augmentin as directed follow up with Dr. Razo (surgeon) Follow up with coumadin clinic as planned Follow up with your manager programs, call for appointment get CBC done within a week Assessment: see above
[2025-08-18 11:28] VITALS: BP 148/94; PULSE 63; RESP 18; TEMP 37.3; O2SAT 96
--- NOTE | 2025-08-18 11:32 | MHC.CM.PN ---
DP: PT HAS BEEN MEDICALLY CLEARED FOR DC HOME, NO SERVICES. S/O WILL TRANSPORT HOME.
[2025-08-18 12:45] LABS: Hemoglobin 13.6 g/dl (14.0-18.0); NRBC Abs Auto 0.000 X10*3/uL (0.0-0.012); NRBC Pct Auto 0.0 /100WBC (0.0-0.2); PLT CLUMP 1
[2025-08-18 12:47] LABS: Hematocrit 40.6 % (42.0-52.0); Mean Corpuscular HGB Conc 33.5 g/dl (31.0-36.0); Mean Corpuscular Hemoglobin 29.8 pg (27.0-33.0); Mean Corpuscular Volume 89.0 fL (80.0-98.0); Red Blood Count 4.56 X10*6/uL (4.60-5.80)
[2025-08-18 12:48] LABS: Platelet Count 47 X10*3/uL (160-400); White Blood Count 20.5 X10*3/uL (4.8-10.8)
[2025-08-20 19:14] LABS: HIT-Patient Optical Density 0.138 OD UNITS
[2025-08-23 09:44] LABS: Anti Nuclear Antibody Screen NEGATIVE (NEGATIVE)
[2025-08-25 16:34] LABS: Mixing Study - PT 13.3 sec (9.0-11.5); PTT LA 68 sec (< OR = 40)
== END 2025-08-18 12:25 | disposition home or self-care (01) | DRG 244 ==
LOC: HO.ED 13:51 → HO.EDOVER 14:43 → HO.S3 15:09
PROVIDERS: Hospitalist; Internal Medicine; Nurse Practitioner Acute Care; Physician Assistant Surgical; Admitting Provider Surgery; Emergency Provider Emergency Medicine; PCP Internal Medicine; Visit Provider Internal Medicine
DX: K57.20 Diverticulitis of large intestine with perforation and abscess without bleeding (principal); K56.600 Partial intestinal obstruction, unspecified as to cause; D69.6 Thrombocytopenia, unspecified; D68.61 Antiphospholipid syndrome; N17.9 Acute kidney failure, unspecified; L88 Pyoderma gangrenosum; K92.2 Gastrointestinal hemorrhage, unspecified; I12.9 Hypertensive chronic kidney disease with stage 1 through stage 4 chronic kidney disease, or unspecified chronic kidney disease; N18.30 Chronic kidney disease, stage 3 unspecified; J45.909 Unspecified asthma, uncomplicated; Z86.718 Personal history of other venous thrombosis and embolism; Z79.01 Long term (current) use of anticoagulants; Z79.899 Other long term (current) drug therapy
CPT/HCPCS: 36415; 71045; 74176; 74177; 80048; 80053; 81001; 82271; 83605; 83615; 83690; 83735; 84100; 84478; 85025; 85027; 85384; 85520; 85610; 85611; 85730; 85732; 86022; 86038; 86160; 86225; 86850; 86880; 86900; 86901; 87040; 93005; 99285; J0131; J0696; J1171; J1644; J1836; J2270; J2405; J2470; P9073; Q9967

== ENCOUNTER → 2025-08-10 10:12 | Outpatient (BNV) | payer OTHER, SELFPAY | PROVIDERS: Admitting Provider Surgery; Emergency Provider Emergency Medicine; PCP Internal Medicine; Visit Provider Internal Medicine Cardiovascular Disease | DX: R10.13 Epigastric pain (principal) | CPT/HCPCS: 93010 ==

== ENCOUNTER → 2025-08-10 10:30 | Outpatient (BNV) | payer OTHER, SELFPAY | PROVIDERS: Emergency Provider Emergency Medicine; PCP Internal Medicine; Visit Provider Surgery | DX: K56.609 Unspecified intestinal obstruction, unspecified as to partial versus complete obstruction (principal); D68.61 Antiphospholipid syndrome; K57.20 Diverticulitis of large intestine with perforation and abscess without bleeding | CPT/HCPCS: 99222; 99232; 99499 ==

== ENCOUNTER → 2025-08-10 10:40 | Outpatient (BNV) | payer OTHER, SELFPAY | PROVIDERS: Emergency Provider Emergency Medicine; PCP Internal Medicine; Visit Provider Radiology Diagnostic Radiology | DX: K66.8 Other specified disorders of peritoneum (principal); K56.609 Unspecified intestinal obstruction, unspecified as to partial versus complete obstruction | CPT/HCPCS: 74177 ==

== ENCOUNTER 2025-08-10 14:17 | Outpatient (BNV) | payer OTHER, SELFPAY | END 2025-08-11 07:38 | PROVIDERS: Admitting Provider Surgery; Emergency Provider Emergency Medicine; PCP Internal Medicine; Visit Provider Radiology Diagnostic Radiology | DX: K65.1 Peritoneal abscess (principal); K57.20 Diverticulitis of large intestine with perforation and abscess without bleeding | CPT/HCPCS: 74177 ==

== ENCOUNTER 2025-08-10 14:17 | Outpatient (BNV) | payer OTHER, SELFPAY | END 2025-08-16 09:27 | PROVIDERS: Admitting Provider Surgery; Emergency Provider Emergency Medicine; PCP Internal Medicine; Visit Provider Radiology Diagnostic Radiology | DX: K57.92 Diverticulitis of intestine, part unspecified, without perforation or abscess without bleeding (principal); K56.609 Unspecified intestinal obstruction, unspecified as to partial versus complete obstruction | CPT/HCPCS: 74176 ==

== ENCOUNTER 2025-08-10 14:17 | Outpatient (BNV) | payer OTHER, SELFPAY | END 2025-08-13 09:00 | PROVIDERS: Admitting Provider Surgery; Emergency Provider Emergency Medicine; PCP Internal Medicine; Visit Provider Radiology Diagnostic Ultrasound | DX: Z97.8 Presence of other specified devices (principal) | CPT/HCPCS: 71045 ==

== ENCOUNTER → 2025-08-10 14:17 | Outpatient (BNV) | payer OTHER, SELFPAY | PROVIDERS: Admitting Provider Surgery; Emergency Provider Emergency Medicine; PCP Internal Medicine; Visit Provider Internal Medicine | DX: D69.6 Thrombocytopenia, unspecified (principal) | CPT/HCPCS: 99222 ==

== ENCOUNTER → 2025-08-10 14:17 | Outpatient (BNV) | payer OTHER, SELFPAY | PROVIDERS: Admitting Provider Surgery; Emergency Provider Emergency Medicine; PCP Internal Medicine; Visit Provider Internal Medicine Gastroenterology | DX: K57.20 Diverticulitis of large intestine with perforation and abscess without bleeding (principal) | CPT/HCPCS: 99223 ==

== ENCOUNTER → 2025-08-10 14:17 | Outpatient (BNV) | payer OTHER, SELFPAY | PROVIDERS: Admitting Provider Surgery; Emergency Provider Emergency Medicine; PCP Internal Medicine; Visit Provider Nurse Practitioner Acute Care | DX: D68.61 Antiphospholipid syndrome (principal); K57.20 Diverticulitis of large intestine with perforation and abscess without bleeding; R10.9 Unspecified abdominal pain; K66.8 Other specified disorders of peritoneum; N17.9 Acute kidney failure, unspecified; L88 Pyoderma gangrenosum | CPT/HCPCS: 99223; 99232 ==

== ENCOUNTER 2025-08-28 10:02 | Outpatient (AMB) | payer OTHER, SELFPAY ==
--- OUTSIDE RECORDS SUMMARY | 2025-08-12 05:30 | XMS_ITS ---
Author Organization [facility] Address [address] [address] Care Team Providers Care Professor Of Philosophy Name Role Phone Jeremías Knox MD Primary Care Provider Ceferino Pabon Unavailable [phone] Encounters Encounter Location Date Provider Diagnosis [facility] [address] [place] [address] 08/12/2025 Ceferino Layton Plan Of Treatment No Information Progress Notes * Alejandro CORREADOB:[birth year] (64 yo M)Acc No.[id number]:08/12/2025 Follow-Up Visit Patient: Alejandro RODRIGUEZ Provider: Gisela Layton MD, MSc, CWSP :1960 A ge:64 Y S ex:Male Date:08/12/2025 Address: [address] [id number] Pcp:Jeremías Knox MD Subjective: * Chief Complaints: * * Medical History: Objective: * Vitals: Assessment: Plan: * Treatment: * Billing Information: * Visit Code: * Procedure Codes: * Electronic signature of Antoinette Layton MD on 08/28/2025 at 11:19 AM EDT Sign off status: Pending * Provider: Gisela Layton MD, MSc, CWSP Date: Generated for Brian ray/Braxton/Kristin on: 11:19 AM EDT
--- OUTSIDE RECORDS SUMMARY | 2025-08-24 14:47 | XMS_ITS | Encounter Summary ---
Author Organization [facility] Address [address] [facility] [address] [place] [phone] Phone Care Team Providers Care Product Owner Name Role Phone Jeremías Knox MD Primary Care Provid er Angel Doty MBBS Unavailable [phone] Encounter Details Date Type Department Care Team (Latest Contact Info) Description 08/24/2025 2:47 PM EDT - 08/24/2025 11:59 PM EDT Hospital Encounter [facility] [address] [place] [address] Terry Razo MD [address] [place] [address] Discharge Disposition: Home or Self Care Social History Tobacco Use Types Packs/Day Years [...] AM EDT documented as of this encounter Medications at Time of Discharge BIOFLAVONOIDS ORAL Take 2 capsules by mouth daily. cetirizine (ZYRTEC) 10 MG tablet Take 1 tablet by mouth daily. cholecalciferol (VITAMIN D3) 5,000 unit capsule Take 5,000 Units by mouth daily. diclofenac sodium (VOLTAREN) 1 % Gel 4g to affected area Transdermal Twice a day 11/28/2016 fluticasone propionate (FLONASE) 50 mcg/actuation nasal spray 1 spray in each nostril Nasally Once a day furosemide (LASIX) 20 MG tablet Take 20 mg by mouth. 20mg daily losartan (COZAAR) 100 MG tablet Take 1 tablet by mouth every morning. 05/06/2024 omeprazole (PRILOSEC) 20 MG tablet Take 20 mg by mouth daily. On sat, sun, e, th traZODone (DESYREL) 50 MG tablet Take 50 mg by mouth nightly at bedtime. TURMERIC-HERBAL COMPLEX NO.278 ORAL Take 1 capsule by mouth daily. warfarin (COUMADIN) 5 MG tablet Take 5 mg by mouth daily. Maintenance plan:10 mg every Mon, Wed, Fri; 5 mg all other days documented as of this encounter Plan of Treatment Not on file documented as of this encounter Procedures Procedure Name Priority Date/Time Associated Diagnosis Comments PT-INR Routine 08/24/2025 3:00 PM EDT DVT (deep venous thrombosis) APS (antiphospholipid syndrome) Chronic anticoagulation CBC AND DIFFERENTIAL Routine 08/24/2025 3:00 PM EDT Diverticulitis of large intestine with perforation and abscess without bleeding documented in this encounter Results * (ABNORMAL) PT-INR (08/24/2025 3:00 PM EDT) PT 69.5(H) 10.2 - 12.9 sec [facility] INR 5.5(HH) 0.9 - 1.1 [facility] Comment: Results confirmed by repeat analysis. Therapeutic range for oral Vitamin K antagonists: 2.0-3.5 Successful Call: PTI called 08/24/2025 03:57 PM to TERRY RAZO ( /M,ASHLEY) by [id number]. Read Back: Yes Blood 08/24/2025 3:00 PM EDT 08/24/2025 3:09 PM EDT Jeremías Knox MD LAB BLOOD ORDERABLES Edited Result - Final [facility] [address] [place] [address] * (ABNORMAL) CBC and differential (08/24/2025 3:00 PM EDT) WBC 16.60(H) 4.00 - 11.00 K/uL [facility] RBC 4.28(L) 4.50 - 5.90 M/uL [facility] HGB 12.8(L) 13.5 - 17.5 g/dL [facility] HCT 38.1(L) 41.0 - 53.0 % [facility] PLT 182 150 - 450 K/uL [facility] MCV 89.0 80.0 - 100.0 fL [facility] MCH 29.9 27.0 - 31.0 pg [facility] MCHC 33.6 32.0 - 36.0 g/dL [facility] RDW 14.5 11.5 - 14.5 % [facility] MPV 9.5 8.4 - 12.0 fL [facility] NRBC 0.00 0.00 /100 WBCs [facility] ABSOLUTE NRBC 0.00 0.00 K/uL [facility] DIFF METHOD Manual [facility] TOTAL CELLS COUNTED 100 [facility] NEUTS 75.0 48.0 - 76.0 % [facility] BANDS 15.0(H) 0 - 10 % [facility] LYMPHS 6.0(L) 18.0 - 41.0 % [facility] MONOS 2.0(L) 4.0 - 11.0 % [facility] EOS 1.0 0.0 - 5.0 % [facility] MYELOS 1.0(H) 0 % [facility] ABSOLUTE NEUTS 14.94(H) 1.92 - 7.60 K/uL [facility] ABSOLUTE LYMPHS 1.00 0.72 - 4.10 K/uL [facility] ABSOLUTE MONOS 0.33 0.16 - 1.10 K/uL [facility] ABSOLUTE EOS 0.17 0.00 - 0.50 K/uL [facility] ABSOLUTE MYELOS 0.17 K/uL [facility] Blood 08/24/2025 3:00 PM EDT 08/24/2025 3:09 PM EDT us Terry Razo MD LAB BLOOD ORDERABLES Final Re sult [facility] Organization Address City/State/ZIP Co de Phone Number [facility] [address] [place] [address] documented in this encounter Visit Diagnoses Diagnosis Diverticulitis of large intestine with perforation and abscess without bleeding- Primary DVT (deep venous thrombosis) Acute venous embolism and thrombosis of unspecified deep vessels of lower extremity APS (antiphospholipid syndrome) Primary hypercoagulable state Chronic anticoagulation Encounter for long-term (current) use of anticoagulants documented in this encounter Care Teams Product Owner Relationship Specialty Start Date End Date Jeremías Knox MD [address] [place] [address] [phone] PCP - General Pediatrics 05/09/22 Angel Doty MBBS [address] [place] [address] [phone] [email or web address] Medical Oncology 02/27/24 documented as of this encounter Additional Source Comments The information contained in this document represents components of the legal health record. It is not the complete legal health record.[facility]
--- OUTSIDE RECORDS SUMMARY | 2025-08-27 10:11 | XMS_ITS | Encounter Summary ---
Author Organization [facility] Address [address] [place] [address] Phone Care Team Providers Care Replenisher Name Role Phone Jeremías Knox MD Primary Care Provid er Angel Doty MBBS Unavailable [phone] Encounter Details Date Type Department Care Team (Latest Contact Info) Description 08/27/2025 10:11 AM EDT - 08/27/2025 11:59 PM EDT Hospital Encounter [facility] [address] [place] [address] Gallito Razo MD [address] [place] [address] Discharge Disposition: Home or Self Care [...] diverticulum of large intestine BASIC METABOLIC PANEL Routine 08/27/2025 10:37 AM EDT Perforated diverticulum of large intestine documented in this encounter Results * (ABNORMAL) CBC and differential (08/27/2025 10:37 AM EDT) WBC 14.65(H) 4.00 - 11.00 K/uL [facility] RBC 4.35(L) 4.50 - 5.90 M/uL [facility] HGB 12.9(L) 13.5 - 17.5 g/dL [facility] HCT 38.2(L) 41.0 - 53.0 % [facility] PLT 129(L) 150 - 450 K/uL [facility] MCV 87.8 80.0 - 100.0 fL [facility] MCH 29.7 27.0 - 31.0 pg [facility] MCHC 33.8 32.0 - 36.0 g/dL [facility] RDW 14.2 11.5 - 14.5 % [facility] MPV 8.6 8.4 - 12.0 fL [facility] NRBC 0.00 0.00 /100 WBCs [facility] ABSOLUTE NRBC 0.00 0.00 K/uL [facility] DIFF METHOD Manual [facility] TOTAL CELLS COUNTED 100 [facility] NEUTS 76.0 48.0 - 76.0 % [facility] BANDS 1.0 0 - 10 % [facility] LYMPHS 13.0(L) 18.0 - 41.0 % [facility] MONOS 6.0 4.0 - 11.0 % [facility] EOS 1.0 0.0 - 5.0 % [facility] BASOS 1.0 0.0 - 1.5 % [facility] MYELOS 1.0(H) 0 % [facility] METAS 1.0(H) 0 % [facility] ABSOLUTE NEUTS 11.28(H) 1.92 - 7.60 K/uL [facility] ABSOLUTE LYMPHS 1.90 0.72 - 4.10 K/uL [facility] ABSOLUTE MONOS 0.88 0.16 - 1.10 K/uL [facility] ABSOLUTE EOS 0.15 0.00 - 0.50 K/uL [facility] ABSOLUTE BASOS 0.15 0.00 - 0.15 K/uL [facility] ABSOLUTE MYELOS 0.15 K/uL [facility] ABSOLUTE METAS 0.15 K/uL [facility] Blood 08/27/2025 10:3 7 AM EDT 08/27/2025 10:44 AM EDT us Gallito Razo MD LAB BLOOD ORDERABLES Final Re sult Performing Organization Address City/[facility]/ZIP Co de Phone Number [address] [address] * (ABNORMAL) Basic metabolic panel (08/27/2025 10:37 AM EDT) SODIUM 129(L) 133 - 146 mmol/L [facility] CHLORIDE 97 96 - 108 mmol/L [facility] POTASSIUM 4.6 3.3 - 5.1 mmol/L [facility] CO2 21 21 - 35 mmol/L [facility] BUN 21(H) 6 - 19 mg/dL [facility] CREATININE 1.30 0.5 - 1.5 mg/dL [facility] GLUCOSE 92 70 - 99 mg/dL [facility] CALCIUM 9.0 8.4 - 10.3 mg/dL [facility] EGFR 62 >59 mL/min/1.7 3m2 [facility] Comment:Estimated glomerular filtration rate calculated using the CKD-EPI refit equation. ANION GAP 16 10 - 20 mmol/L [facility] Blood 08/27/2025 10:3 7 AM EDT 08/27/2025 10:44 AM EDT us Gallito Razo MD LAB BLOOD ORDERABLES Final Re sult [address] [address] * (ABNORMAL) PT-INR (08/27/2025 10:37 AM EDT) PT 24.0(H) 10.2 - 12.9 sec [facility] INR 1.9(H) 0.9 - 1.1 [facility] Comment:Therapeutic range fo r oral Vitamin K antagonists: 2.0-3.5 Blood 08/27/2025 10:3 7 AM EDT 08/27/2025 10:44 AM EDT us Jeremías Knox MD LAB BLOOD ORDERABLES Final Result [facility] [address] [place] [address] documented in this encounter Visit Diagnoses Diagnosis DVT (deep venous thrombosis) Acute venous embolism and thrombosis of unspecified deep vessels of lower extremity APS (antiphospholipid syndrome) Primary hypercoagulable state Chronic anticoagulation Encounter for long-term (current) use of anticoagulants Perforated diverticulum of large intestine Diverticulosis of colon (without mention of hemorrhage) documented in this encounter Care Teams Replenisher Relationship Specialty Start Date End Date Jeremías Knox MD [address] [place] [phone] PCP - General Pediatrics 05/09/22 Angel Doty MBBS [address] [place] [phone] [email or web address] Medical Oncology 02/27/24 documented as of this encounter Additional Source Comments The information contained in this document represents components of the legal health record. It is not the complete legal health record.[facility]
--- NOTE | 2025-08-28 10:06 | MHC.OFFVIS ---
Vital Signs 08/28/25 10:13 Weight 232 lb BP 134/72 Blood Pressure Location Lt brachial Position Sitting Pulse 90 Intake Visit Reasons: diverticulitis/post hospitalization Intake Note: Patient here post hospitalization perforated Sigmoid Diverticulitis with SBO. Patient c/o: pain, loose, watery stool. Reports white count slowly improving. On Augmentin, Doxycycline 100mg bid. 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 Correa is a 64 year old male with PMH significant for antiphospholipid syndrome on Coumadin, hypertension with a recent admission to [facility] on 08/10/25-08/18/25 for perforated diverticulitis managed nonoperatively with IV abx. He subsequently developed a SBO as he had a loop of small bowel that appeared to be tethered to the area of diverticulitis. He required an NGT for decompression and bowel rest and PPN and this eventually resolved. His coumadin was held during this time for possible surgical intervention and he was bridged with heparin drip. He however had a significant drop in his platelets during this time and the heparin was stopped with concern for HIT. They decided to resume his coumadin alone to bring INR up, given plat still low. His diverticulitis improved with supportive measures and he was discharged on a course of Augmentin with follow up in the general surgery office. Since discharge, he has had intermittent fevers with highest of 101 a few days following discharge. He had doxycycline at home from previous treatment of his pyoderma gangrenosum of his left leg which he began taking and his fevers began to improve. His augmentin was also extended. He now reports his temp is 99 and he takes it multiple times throughout the day. He reports loose stools every few hours throughout the day. He has some occasional nausea and his appetite is diminished. He also reports continued LLQ and suprapubic pain. He still needs to take oxycodone which he tries to limit to just nighttime as he is not sleeping well. He had been taking tylenol 1000mg q6h but decreased his dosing. He was found to have an INR of 5.5. at his coumadin clinic at [facility] and his coumadin was adjusted with improvement. Upon his last lab work, his WBC count was improved to 14 and platelets were up to 129. [facility] Medical History (Updated 08/28/25 @ 13:17 by Trish Bolden PA-C) Antiphospholipid syndrome (Unknown) Pyoderma gangrenosum Surgical History (Updated 08/28/25 @ 12:36 by Trish Bolden PA-C) H/O right inguinal hernia repair Social History Household Members: Spouse Housing: House Do you presently have visiting nurse or other home services: No Patient Tobacco Use Status: Never used Tobacco service: No Review of Systems Const Reports as per HPI ENT Denies dizziness Card Denies chest pain, Denies palpitations and Denies dyspnea Resp Denies dyspnea GI Reports as per HPI Skin/Breast Denies rash and Denies jaundice Neuro Denies dizziness Endo Denies palpitations Physical Exam Vital Signs: Last Vital Signs Pulse 90 08/28/25 10:13 BP 134/72 08/28/25 10:13 Const General: comfortable, alert and tired appearing; No ill appearing Orientation/consciousness: patient oriented x3 Resp Effort & Inspection: normal respiratory effort, able to speak in complete sentences and not tachypneic GI Other: protuberant abdomen, mildly distended but soft mild tenderness umbilical, moderate LLQ and suprapubic tenderness Inspection: No scar Palpation (GI): no guarding and not rigid Skin Other: ecchymosis of b/l UE General skin exam: no jaundice Neuro General: patient oriented x3 and moves all extremities Assessment & Plan Assessment & Plan (1) Diverticulitis of large intestine with complication: Code(s): K57.32 - Diverticulitis of large intestine without perforation or abscess without bleeding Category: Medical (2) Anticoagulated on Coumadin: Code(s): Z79.01 - retirement (current) use of anticoagulants Category: Medical Plan 64 year old male with PMH significant for antiphospholipid syndrome on Coumadin, hypertension with a recent admission to [facility] on 08/10/25-08/18/25 for perforated diverticulitis, SBO where he developed thrombocytopenia while on heparin bridge. He had been doing fairly well at the time of discharge however had intermittent fevers for a few days and now with persistent LLQ pain with nausea, anorexia and loose stools. Symptoms overall appear to be secondary to the diverticulitis. It was recommended to proceed with surgical intervention given his continued symptoms with hand assisted laparoscopic sigmoid colon resection. Technique of the procedure as well as risks and benefits including but not limited to infection, bleeding, poor wound healing, injury to surrounding organs and structures like ureter, bladder, vasculature, small bowel were discussed. It was also discussed he may require an ostomy in view of the anticipated difficult procedure or a small bowel resection as he had a loop of small bowel that was tethered to the area. He will require a clear liquid diet and a bowel prep the day before as well as preoperative antibiotics which are ordered. He is requesting a PICC line be placed which is reasonable as he has difficult IV access and required many IVs after loss of access and required US guided placement. This will be ordered as well. His coumadin clinic and prepared foods service team member will be contacted regarding his Coumadin therapy and bridging with agatropan which was the recommended alternative non heparin based AC. He has been tenatively added for 09/04/25 for the planned procedure with ERAS protocol through [facility] if all arrangements can be made. After discussion with coumadin clinic, they were expressing concern about bridging his coumadin at home. Current plan is have PICC line placed on Sunday with subsequent admission and hematology/hospitalist consult for bridging AC for surgical procedure on Sunday. Orders: Orders IR cvc insert peripheral Today D69.6 - Thrombocytopenia, unspecified Coding Level of Care Code New Pt Level 4 (95849) Diagnoses Diverticulitis of large intestine with complication K57.32 Anticoagulated on Coumadin Z79.01
[2025-08-28 10:13] VITALS: BP 134/72; PULSE 90
--- OUTSIDE RECORDS SUMMARY | 2025-08-28 11:20 | XMS_ITS | Encounter Summary ---
Author Organization [facility] Address [address] [facility] [address] [place] [phone] Phone Care Team Providers Care Forensics Analyst Name Role Phone Jeremías Knox MD Primary Care Provid er Jeremías Knox MD Primary Care Provid er Angel Doty MBBS Unavailable [phone] Reason for Referral * MRI/CAT Scan - Closed Specialty Diagnoses / Procedures Referred By Contac t Referred To Contact Radiology Diagnoses Benign neoplasm of cerebral meninges Procedures MRI Brain CHG MRI BRAIN CHG MRI BRAIN COMBO Jeremías Knox MD Phone: tel: fax: Referral ID Status Reason Start Date Expiration Date Visits Re quested Visits Authorized [id number] Closed 05/03/2022 07/02/2022 1 1 Encounter Details Date Type Department Care Team (Latest Contact Info) Description 05/03/2022 Transcribe Orders Virtual Department [address] [place] [address] Jeremías Knox MD [address] [phone] Benign neoplasm of cerebral meninges [...] meninges documented in this encounter Care Teams Forensics Analyst Relationship Specialty Start Date End Date Jeremías Knox MD [address] [phone] PCP - General Pediatrics 08/29/17 05/08/22 Jeremías Knox MD [address] [phone] PCP - General Pediatrics 05/09/22 Angel Doty MBBS [address] [place] [phone] [email or web address] Medical Oncology 02/27/24 documented as of this encounter Additional Source Comments The information contained in this document represents components of the legal health record. It is not the complete legal health record.[facility]
--- OUTSIDE RECORDS SUMMARY | 2025-08-28 11:20 | XMS_ITS | Patient Health Record ---
Author Organization [facility] Address [address] [facility] [address] [place] [address] Care Team Providers Care Magician Helper Name Role Phone Jeremías Knox MD Primary Care Provider Ceferino Pabon Unavailable [phone] Allergies Allergen (clinical drug ingredient) Drug/Non Drug Allergy documented on EMR Reaction Allergy Type Onset Date Status sulfamethoxazole / trimethoprim Bactrim Unknown Drug Allergy Active Keflex Unknown Drug Allergy Active bacitracin Bacitracin Unknown Drug Allergy Activ e celecoxib Celecoxib Unknown Drug Allergy Active Substance with sulfonamide structure and antibacterial mechanism of action (substance) Sulfa Antibiotics Unknown Drug Allergy A ctive Reason For Referral No Information Medications Medication SIG (Take, Route, Frequency, Duration) Notes Start Date End Date Status Triamcinolone Acetonide 0.1 % 1 application Externally Two times a Week Not-Taking Fluticasone Propionate 50 MCG/ACT 1 spray in each nostril Nasally Twice a day Active Sildenafil Citrate 50 MG 1 tablet as nee ded Orally Once a day Active ZyrTEC Allergy 10 MG 1 tablet Orally Onc e a day Active Losartan Potassium 100 MG 1 tablet Orall y Once a day Active Magnesium Glycinate 120 MG as directed Orally Active Ventolin HFA 108 (90 Base) MCG/ACT 1 puff as needed Inhalation every 4 hrs Active EpiCeram - as directed Externally Active Vitamin D3 125 MCG (5000 UT) 1 capsule Orally Once a day Active traZODone HCl 50 MG 1 tablet at bedtime as needed Orally Once a day Active Multivitamin - 1 tablet Orally Once a day Active Warfarin Sodium 5 MG 1 tablet Orally Onc e a day Active Omeprazole 20 MG 1 capsule 1/2 to 1 h our before morning meal Orally Once a day Active Gabapentin 300 MG 1 capsule Orally Onc e a day Active Turmeric 500 MG as directed Orally Active Lasix 40 MG 1 tablet Orally Once a day Active Social History Tobacco Use: Social History Observation Description Date Details (start date - stop date) Never Smoker NA - NA Tobacco Control (Standard) Question Answer Notes Tobacco use: Nonsmoker Section Notes: never smoker Independent Lives at home with family never smoker Independent Lives at home with family Problems Problem Type SNOMED Code ICD Code Onset Dates Problem Status W/U Status Risk Notes Problem Benign neoplasm of cerebral meninges (01781540) Benign neoplasm of cerebral meninges (D32.0) Active confirmed Problem 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 (L97.825) Active confirmed Problem Hypercoagulable state (55790721) Hypercoagulable state (D68.59) Active confirmed Problem Hypertension (20215623) Hypertension (I10) Active confirmed Problem Hyperlipidemia (96890893) Hyperlipidemia (E78.5) Active confirmed Problem Obesity (622517435) Obesity (E66.9) Active confirmed Problem Asthma (590319637) Asthma (J45.909) Active conf irmed Problem Allergic rhinitis (70503578) Allergic rhinitis (J30.9) Active confirmed Vital Signs Heart Rate 53 /min 08/05/2025 Temperature 98.3 degrees Fahrenheit 08/05/2025 Respiratory Rate 16 /min 08/05/2025 Blood pressure diastolic 78 mm Hg 08/05/2025 Oximetry 98 % 08/05/2025 Height-cm 170.18 cm 08/05/2025 Weight-kg 110.22 kg 08/05/2025 Height 67 in 08/05/2025 Blood pressure systolic 145 mm Hg 08/05/2025 Weight 243 lbs 08/05/2025 BMI 38.06 kg/m2 08/05/2025 Encounters Encounter Location Date Provider Diagnosis [facility] [address] [place] [address] 07/22/2025 Ceferino [place] 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 L97.825 ; Multiple open wounds of left lower leg S81.802A ; Allergic rhinitis J30.9 ; Benign neoplasm of cerebral meninges D32.0 ; Hypercoagulable state D68.59 ; Hypertension I10 ; Hyperlipidemia E78.5 ; Obesity E66.9 and Asthma J45.909 [facility] [address] [place] [address] 07/29/2025 Ceferino [place] 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 L97.825 ; Multiple open wounds of left lower leg S81.802A ; Allergic rhinitis J30.9 ; Benign neoplasm of cerebral meninges D32.0 ; Hypercoagulable state D68.59 ; Hypertension I10 ; Hyperlipidemia E78.5 ; Obesity E66.9 and Asthma J45.909 [facility] [address] [address] 08/05/2025 Ceferino [place] 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 L97.825 ; Multiple open wounds of left lower leg S81.802A ; Allergic rhinitis J30.9 ; Benign neoplasm of cerebral meninges D32.0 ; Hypercoagulable state D68.59 ; Hypertension I10 ; Hyperlipidemia E78.5 ; Obesity E66.9 and Asthma J45.909 [facility] [address] [address] 07/29/2025 Ceferino [place] [facility] [address] [address] 07/20/2025 Ceferino [place] Assessments Encounter Date Diagnosis (ICD Code) Assessment Notes Treatment Notes Treatment Clinical Notes Section Notes 07/22/2025 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 (ICD-10 - L97.825) 07/22/2025 Multiple open wounds of left lower leg (ICD-10 - S81.802A) 07/29/2025 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 (ICD-10 - L97.825) 08/05/2025 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 (ICD-10 - L97.825) 07/22/2025 Allergic rhinitis (ICD-10 - J30.9) 07/29/2025 Multiple open wounds of left lower leg (ICD-10 - S81.802A) 08/05/2025 Multiple open wounds of left lower leg (ICD-10 - S81.802A) 07/29/2025 Allergic rhinitis (ICD-10 - J30.9) 08/05/2025 Allergic rhinitis (ICD-10 - J30.9) 07/22/2025 Benign neoplasm of cerebral meninges (ICD-10 - D32.0) 07/29/2025 Benign neoplasm of cerebral meninges (ICD-10 - D32.0) 07/22/2025 Hypercoagulable state (ICD-10 - D68.59) 08/05/2025 Benign neoplasm of cerebral meninges (ICD-10 - D32.0) 07/22/2025 Hypertension (ICD-10 - I10) 08/05/2025 Hypercoagulable state (ICD-10 - D68.59) 07/29/2025 Hypercoagulable state (ICD-10 - D68.59) 07/29/2025 Hypertension (ICD-10 - I10) 08/05/2025 Hypertension (ICD-10 - I10) 07/22/2025 Hyperlipidemia (ICD-10 - E78.5) 07/22/2025 Obesity (ICD-10 - E66.9) 08/05/2025 Hyperlipidemia (ICD-10 - E78.5) 07/29/2025 Hyperlipidemia (ICD-10 - E78.5) 07/29/2025 Obesity (ICD-10 - E66.9) 08/05/2025 Obesity (ICD-10 - E66.9) 07/22/2025 Asthma (ICD-10 - J45.909) 08/05/2025 Asthma (ICD-10 - J45.909) 07/29/2025 Asthma (ICD-10 - J45.909) 07/22/2025 Ish [place] presented today for his initial evaluation and management of chronic wounds involving his left lower extremity. As noted they have been present for over 3 years and despite a variety of different dressings the wounds have not resolved. His workup has also been otherwise unremarkable. Today on exam he is noted to be afebrile and the remainder of his vital signs are within normal limits for him we then removed the dressings and I examined the tube wound areas. There is petechiae scattered throughout his lower leg there is no evidence of any significant erythema, warmth, odor or purulent drainage from the wound sites. There was devitalized tissue covering the base of both wound sites. After examining the areas I first performed debridement of both wound sites as outlined. I then obtained a tissue biopsy from the larger, proximal wound to rule out pyoderma gangrenosum. After applying topical lidocaine I performed a punch biopsy. He tolerated the procedure well. Thereafter we applied Xeroform to both wound sites and covered them with a dry dressing. We also applied compression to his lower extremity. He will continue to have dressing changes performed regularly and return next week for a follow-up. At that time we will consider obtaining an ESTEFANY to reevaluate his vascular status. 07/29/2025 Ish Allen returned today for his follow-up appointment. He reports that he has had his dressing changes performed regularly and has been wearing compression. He denies any new issues related to the wound areas. The result of his biopsy did not show any evidence of any vasculitis, or any underlying malignancy however pyoderma gangrenosum could not be ruled out. On exam today he is noted to be afebrile, we then removed the dressings and I examined the wound areas. Overall the wound is showing signs of improvement and now measuring smaller. There is mild erythema which has improved from last week. After examining the areas I did not perform any debridement of the wound sites. Given the results of his biopsy I recommended the application of Clobetasol to the wound bases daily and covering them with a dry dressing. He was also advised to continue to wear compression. He will return for follow-up appointment next week. 08/05/2025 Ish Allen returned today for his follow-up appointment. He has been applying clobetasol to the wound sites as recommended. He denies any new issues. On exam today he is noted to be afebrile, we then performed ESTEFANY testing which demonstrated that he has an ESTEFANY index of 1.25 on his right lower extremity and 1.21 on his left lower extremity. We then removed the dressings and I examined the wound areas. Both of the wound sites are measuring smaller. There was evidence of overlying slough which I mechanically debrided. He tolerated the procedures. At this time we will continue with the application of clobetasol to both areas. The sites were then covered with a dry dressing. He was also instructed to wear compression. He will have his dressing changes performed daily and return next week for a follow-up appointment. Plan Of Treatment No Information Insurance Providers Payer Name Payer Address Payer Phone Subscriber Number Group Number Insured Name Patient Relationship to Insured Coverage Start Date Coverage End Date [facility] [address] [place], [place] [id number] NataliegustavoAlejandro Self - patient is the insured 5 Medical (General) History Medical History History ICD Code Benign neoplasm of cerebral meninges D32 .0 Edema R60.9 Hyperlipidemia E78.5 Obesity E66.9 Tourette syndrome F95.2 Hypercoagulable state D68.59 Allergic rhinitis J30.9 Atopic dermatitis L20.9 Asthma J45.909 Hypertension I10 Acute embolism and thrombosi s of unspecified deep veins of left distal lower extremity I82.4Z2 Surgical History Surgery Date(Month/Year) Colonoscopy inguinal hernia repair
--- OUTSIDE RECORDS SUMMARY | 2025-08-28 11:20 | XMS_ITS | Encounter Summary ---
Author Organization [facility] Address [address] [place] [address] Phone Care Team Providers Care Beater Machine Operator Name Role Phone Jeremías Knox MD Primary Care Provid er Jeremías Knox MD Primary Care Provid er Angel Doty [facility] [place]available [phone] Reason for Referral * MRI/CAT Scan - Closed Specialty Diagnoses / Procedures Referred By Emeka ramesh Referred To Contact Radiology Diagnoses Visual hallucinations Procedures CT Head CHG CT SCAN HEAD COMBO Alden Segundo DO Phone: tel: fax: [email or web address] Referral ID Status Reason Start Date Expiration Date Visits Re quested Visits Authorized [id number] Closed 12/29/2021 06/11/2022 1 1 Encounter Details Date Type Department Care Team (Latest Contact Info) Description 12/29/2021 Transcribe Orders Virtual Department [address] [place] [address] Alden Segundo DO [address] [place] [address] [email or web address] Visual hallucinations (Primary Dx) [...] disturbances documented in this encounter Care Teams Beater Machine Operator Relationship Specialty Start Date End Date Jeremías Knox MD [address] [place] [phone] PCP - General Pediatrics 08/29/17 05/08/22 Jeremías Knox MD [address] [place] [phone] PCP - General Pediatrics 05/09/22 Angel Doty MBBS [address] [place] [phone] [email or web address] Medical Oncology 02/27/24 documented as of this encounter Additional Source Comments The information contained in this document represents components of the legal health record. It is not the complete legal health record.[facility]
--- OUTSIDE RECORDS SUMMARY | 2025-08-28 11:20 | XMS_ITS | Encounter Summary ---
Author Organization [facility] Address [address] [place] [address] Phone Care Team Providers Care Diabetic Educator Name Role Phone Jeremías Knox MD Primary Care Provid er Jeremías Knox MD Primary Care Provid er Angel Doty [employer]BS Unavailable [phone] Encounter Details Date Type Department Care Team (Late st Contact Info) Description 03/02/2022 Procedure Pass [facility] Endoscopy Admitting Dept Virtual Department [address] [place] [address] Social History Tobacco Use Types Packs/Day Years [...] on filedocumented in this encounter Care Teams Diabetic Educator Relationship Specialty Start Date End Date Jeremías Knox MD [address] [facility] [address] [place] [address] PCP - General Pediatrics 08/29/17 05/08/22 Jeremías Knox MD [address] [phone] PCP - General Pediatrics 05/09/22 Angel Doty MBBS [address] [phone] [email or web address] Medical Oncology 02/27/24 documented as of this encounter Additional Source Comments The information contained in this document represents components of the legal health record. It is not the complete legal health record.[facility]
--- OUTSIDE RECORDS SUMMARY | 2025-08-28 11:20 | XMS_ITS | Encounter Summary ---
Author Organization [facility] Address [address] [facility] [address] [place] [phone] Phone Care Team Providers Care Salesperson Shoes Name Role Phone Jeremías Knox MD Primary Care Provid er Jeremías Knox MD Primary Care Provid er Angel Doty MBBS Unavailable [phone] Encounter Details Date Type Department Care Team (Late st Contact Info) Description 12/29/2021 Procedure Pass [facility], Ct Scan - [address] [address] Social History Tobacco Use Types Packs/Day Years [...] on filedocumented in this encounter Care Teams Salesperson Shoes Relationship Specialty Start Date End Date Jeremías Knox MD [address] [facility] [address] [place] [address] PCP - General Pediatrics 08/29/17 05/08/22 Jeremías Knox MD [address] [place] [phone] PCP - General Pediatrics 05/09/22 Angel Doty MBBS [address] [place] [phone] [email or web address] Medical Oncology 02/27/24 documented as of this encounter Additional Source Comments The information contained in this document represents components of the legal health record. It is not the complete legal health record.[facility]
--- OUTSIDE RECORDS SUMMARY | 2025-08-28 11:20 | XMS_ITS | Clinical Summary ---
Author Organization [facility] Address [address] [employer] [facility] [address] [place] [address] Phone Care Team Providers Care Creosoting Engineer Name Role Phone Jeremías Knox MD Primary Care Provid er Angel Doty MBBS Unavailable [phone] Allergies Active Allergy Reactions Criticality Noted Date Comments Adhesive Tape-Silicones Rash High 11/10/2022 Bacitracin Rash High 11/10/2022 Celecoxib 06/03/2024 Cephalexin Rash Low 10/10/2022 Heparin Analogues Thrombocytopenia 08/20/2025 Kiwi 06/03/2024 Oxycodone-Acetaminophen GI Upset 11/28/2016 Sulfa [...] Encounters Date Type Department Care Team Description 08/27/2025 10:11 AM EDT - 08/27/2025 11:59 PM EDT Hospital Encounter [facility] [address] [place] [address] Gallito Razo MD Discharge Disposition: Home or Self Care 08/27/2025 Documentation [facility] [address] [place] [phone] Kaylene Gutierres RN INR Check 08/27/2025 Transcribe Orders [facility] [address] [place] [address] Gallito Razo MD Perforated diverticulum of large intestine (Primary Dx) 08/25/2025 Documentation [facility] Clinic [address] [place] [address] 26137 Kaylene Gutierres RN 08/25/2025 Transcribe Orders [facility] Specimen Processing [address] [place] [address] Gallito Razo MD Diverticulitis of large intestine with perforation and abscess without bleeding (Primary Dx) 08/24/2025 2:47 PM EDT - 08/24/2025 11:59 PM EDT Hospital Encounter [facility] [address] [place] [address] Gallito Razo MD Discharge Disposition: Home or Self Care 08/24/2025 Telephone Anticoagulation Clinic [address] [place] [address] Bhavik, Kaylene A, RN INR Check; Supratherapeutic INR Greater Or Equal To 5 08/20/2025 11:53 AM EDT - 08/20/2025 11:59 PM EDT Hospital Encounter [facility] Laboratory [address] [place] [phone] Jeremías Knox MD Discharge Disposition: Home or Self Care 08/20/2025 Telephone Anticoagulation Clinic [address] [place] [phone] Kaylene Gutierres RN INR Check (/) 08/18/2025 Documentation [facility] [address] [place] [address] 217[address] Kaylene Gutierres, RN 07/15/2025 9:25 AM EDT - 07/15/2025 11:59 PM EDT Hospital Encounter [facility] Laboratory [address] [place] [address] Jeremías Knox MD Discharge Disposition: Home or Self Care 07/15/2025 Documentation [facility] Anti Coag [address] [place] [address] Kaylene Gutierres, RN INR Check 07/13/2025 Documentation [facility] [address] [place] [address] 12289 Kaylene Gutierres, RN 06/24/2025 Telephone [facility] Rheumatology [address] [place] [address] Roxana Gold MD, MPH Appointment 06/08/2025 8:43 AM EDT - 06/08/2025 11:59 PM EDT Hospital Encounter [facility] Laboratory [address] [place] [address] Jeremías Knox MD Discharge Disposition: Home or Self Care 06/08/2025 Documentation [facility] [address] [place] [address] 426[address] Kaylene Gutierres, RN INR Check 06/05/2025 Documentation [facility] [address] [place] [address] 537[address] Kaylene Gutierres RN 06/05/2025 Documentation [facility] [address] [place] [address] 76269 Kaylene Gutierres, RN from Last 3 Months Immunizations Immunization Administration [...] - season) 2025 11/04/2020, 10/18/2020 CREATININE LEVEL 08/27/2026 08/27/2025, , 06/03/2024, Additional history exists POTASSIUM LEVEL 08/27/2026 08/27/2025, 08/29, 06/03/2024, Additional history exists SCREENING FOR DIABETES 08/27/2028 08/27/2025, 2022 LIPID PANEL 09/15/2029 09/15/2024, 05/0 10/2023, [...] Procedure Name Priority Date/Time Associated Diagnosis Comments CBC AND DIFFERENTIAL Routine 08/27/2025 10:37 AM EDT Perforated diverticulum of large intestine BASIC METABOLIC PANEL Routine 08/27/2025 10:37 AM EDT Perforated diverticulum of large intestine PT-INR Routine 08/27/2025 10:37 AM EDT DVT (deep venous thrombosis) APS (antiphospholipid syndrome) Chronic anticoagulation CBC AND DIFFERENTIAL Routine 08/24/2025 3:00 PM EDT Diverticulitis of large intestine with perforation and abscess without bleeding PT-INR Routine 08/24/2025 3:00 PM EDT DVT (deep venous thrombosis) APS (antiphospholipid syndrome) Chronic anticoagulation PT-INR Routine 08/20/2025 12:22 PM EDT DVT (deep venous thrombosis) APS (antiphospholipid syndrome) Chronic anticoagulation PT-INR Routine 07/15/2025 9:52 AM EDT DVT [...] to Health Maintenance Results * (ABNORMAL) PT-INR (08/27/2025 10:37 AM EDT) Only the most recent of5 resultswithin the time period is included. PT 24.0(H) 10.2 - 12.9 sec [facility] INR 1.9(H) 0.9 - 1.1 [facility] Comment:Therapeutic range fo r oral Vitamin K antagonists: 2.0-3.5 Blood 08/27/2025 10:3 7 AM EDT 08/27/2025 10:44 AM EDT us Jeremías Knox MD LAB BLOOD ORDERABLES Final Result [facility] [address] [place] [address] * (ABNORMAL) CBC and differential (08/27/2025 10:37 AM EDT) Only the most recent of2 resultswithin the time period is included. WBC 14.65(H) 4.00 - 11.00 K/uL [facility] RBC 4.35(L) 4.50 - 5.90 M/uL [facility] HGB 12.9(L) 13.5 - 17.5 g/dL [facility] HCT 38.2(L) 41.0 - 53.0 % [facility] PLT 129(L) 150 - 450 K/uL [facility] MCV 87.8 80.0 - 100.0 fL [facility] MCH 29.7 27.0 - 31.0 pg [facility] MCHC 33.8 32.0 - 36.0 g/dL [facility] RDW 14.2 11.5 - 14.5 % [facility] MPV 8.6 8.4 - 12.0 fL [facility] NRBC 0.00 0.00 /100 WBCs [facility] ABSOLUTE NRBC 0.00 0.00 K/uL [facility] DIFF METHOD Manual [facility] TOTAL CELLS COUNTED 100 [facility] NEUTS 76.0 48.0 - 76.0 % [facility] BANDS 1.0 0 - 10 % [facility] LYMPHS 13.0(L) 18.0 - 41.0 % [facility] MONOS 6.0 4.0 - 11.0 % [facility] EOS 1.0 0.0 - 5.0 % [facility] BASOS 1.0 0.0 - 1.5 % [facility] MYELOS 1.0(H) 0 % [facility] METAS 1.0(H) 0 % [facility] ABSOLUTE NEUTS 11.28(H) 1.92 - 7.60 K/uL [facility] ABSOLUTE LYMPHS 1.90 0.72 - 4.10 K/uL [facility] ABSOLUTE MONOS 0.88 0.16 - 1.10 K/uL [facility] ABSOLUTE EOS 0.15 0.00 - 0.50 K/uL [facility] ABSOLUTE BASOS 0.15 0.00 - 0.15 K/uL [facility] ABSOLUTE MYELOS 0.15 K/uL [facility] ABSOLUTE METAS 0.15 K/uL [facility] Blood 08/27/2025 10:3 7 AM EDT 08/27/2025 10:44 AM EDT us Gallito Razo MD LAB BLOOD ORDERABLES Final Re sult Performing Organization Address [facility] Co de Phone Number [address] [address] * (ABNORMAL) Basic metabolic panel (08/27/2025 10:37 AM EDT) SODIUM 129(L) 133 - 146 mmol/L [facility] CHLORIDE 97 96 - 108 mmol/L [facility] POTASSIUM 4.6 3.3 - 5.1 mmol/L [facility] CO2 21 21 - 35 mmol/L [facility] BUN 21(H) 6 - 19 mg/dL [facility] CREATININE 1.30 0.5 - 1.5 mg/dL [facility] GLUCOSE 92 70 - 99 mg/dL [facility] CALCIUM 9.0 8.4 - 10.3 mg/dL [facility] EGFR 62 >59 mL/min/1.7 3m2 [facility] Comment:Estimated glomerular filtration rate calculated using the CKD-EPI refit equation. ANION GAP 16 10 - 20 mmol/L [facility] Blood 08/27/2025 10:3 7 AM EDT 08/27/2025 10:44 AM EDT us Gallito Razo MD LAB BLOOD ORDERABLES Final Re sult [address] [address] * (ABNORMAL) Lipid panel (09/15/2024 7:36 AM EST) HDL 45 mg/dL [facility] Comment: Interpretation <40 mg/dL: Low HDL cholesterol (major risk factor for CHD) Greater than or equal to 60 mg/dL: High HDL cholesterol ( negative risk factor for CHD) HDL - cholesterol is affected by a number of factors, e.g. smoking, excerise, hormones, sex and age. CHOLESTEROL 252(H) 0 - 240 mg/dL [facility] TRIGLYCERIDES 260(H) 30 - 160 mg/dL [facility] LDL 155(H) 50 - 129 mg/dL [facility] Comment: LDL levels in terms of risk for coronary heart disease: <100 mg/dL: Optimal 100-129 mg/dL: Near or above optimal 130-159 mg/dL: Borderline high 160-189 mg/dL: High >190 mg/dL: Very High CARDIAC RISK RATIO 5.6(H) 3.4 - 5.0 C [facility] Blood 09/15/2024 7:36 AM EST 09/15/2024 7:40 AM EST us Jeremías Knox MD LAB BLOOD ORDERABLES Final Result Performing Organization Address [facility] Co de Phone Number [address] [address] * ENDOSCOPY, COLON (03/02/2022 2:18 PM EDT) Narrative Transcriptions Kari Argueta MD - 03/02/2022 2:18 PM EDT Patient Name: Alejandro Correa Attending MD:: KARI ARGUETA MD Procedure Date: 03/02/2022 2:18 PM Date of : 1960 Age: 61 Admit Type: Outpatient Gender: Male Room: [facility] Referring MD: Mick Knox Exam Type: Colonoscopy [...] monitored continuously. The Olympus adult variable colonoscope [id number] #[id number] was introduced through the anus and [...] 2:18 PM Procedure Code(s): --- Professional --- 07000, Colonoscopy, flexible; with biopsy, single or multiple --- Technical --- 81862, Colonoscopy, flexible; with biopsy, single or multiple Diagnosis Code(s): --- Professional --- R19.7, Diarrhea, unspecified R63.4, Abnormal weight loss K57.30, Diverticulosis of large intestine without perforation or abscess without bleeding --- Technical --- R19.7, Diarrhea, unspecified R63.4, Abnormal weight loss K57.30, Diverticulosis of large intestine without perforation or abscess without bleeding CPT copyright 2020 [employer]. All rights reserved. The codes documented in this report are preliminary and upon paper stacker reviewmay be revised to meet current compliance requirements. Procedure Date: 03/02/2022 2:18:28 PM [address] [place] [address] Mick Knox MD GI PROCEDURE ORDERAB LES Final Result from Last 3 Months or Most Recently Relevant to Health Maintenance Insurance Advance Directives For more information, please contact: [phone] (9AM - 5PM [place], Sunday-Sunday) * Full Code (Latest Code Status on File) Date Activated Date Inactivated Comments 07/12/2023 7:52 PM Question Answer Comments Code Status Confirmed With: Patient Care Teams Creosoting Engineer Relationship Specialty Start Date End Date Jeremías Knox MD [address] [place] [address] [phone] PCP - General Pediatrics 05/09/22 Angel Doty MBBS [address] [place] [address] [phone] [email or web address] Medical Oncology 02/27/24 Additional Source Comments The information contained in this document represents components of the legal health record. It is not the complete legal health record.[facility]
--- OUTSIDE RECORDS SUMMARY | 2025-08-28 11:20 | XMS_ITS | Encounter Summary ---
Author Organization [facility] Address [address] [facility] [address] [place] [address] Phone Care Team Providers Care Manager Ambulatory Name Role Phone Jeremías Knox MD Primary Care Provid er Jeremías Knox MD Primary Care Provid er Angel Doty MBBS Unavailable [phone] Encounter Details Date Type Department Care Team (Late st Contact Info) Description 05/03/2022 Procedure Pass [facility], [address] [address] Social History Tobacco Use Types Packs/Day Years [...] on filedocumented in this encounter Care Teams Manager Ambulatory Relationship Specialty Start Date End Date Jeremías Knox MD [address] [facility] 1 [place] [phone] PCP - General Pediatrics 08/29/17 05/08/22 Jeremías Knox MD [address] [phone] PCP - General Pediatrics 05/09/22 Angel Doty MBBS [address] [phone] [email or web address] Medical Oncology 02/27/24 documented as of this encounter Additional Source Comments The information contained in this document represents components of the legal health record. It is not the complete legal health record.[facility]
--- OUTSIDE RECORDS SUMMARY | 2025-08-28 11:21 | XMS_ITS | Encounter Summary ---
Author Organization [facility] Address [address] [facility] [address] [place] [address] Phone Care Team Providers Care Individual Small Group Instructor Name Role Phone Jeremías Knox MD Primary Care Provid er Jeremías Knox MD Primary Care Provid er Angel Doty [facility] Unavailable [phone] Reason for Referral * Consultation (Elective) - Closed Specialty Diagnoses / Procedures Referred By Contac t Referred To Contact Diagnoses Deep vein thrombosis (DVT) of non-extremity vein, unspecified chronicity Jeremías Knox MD Phone: tel: fax: [facility] [address] [place] [address] Phone: tel: Referral ID Status Reason Start Date Expiration Date Visits Re quested Visits Authorized [id number] Closed 04/29/2021 04/29/2022 1 1 Encounter Details Date Type Department Care Team (Latest Contact Info) Description 04/29/2021 Transcribe Orders Virtual Department [address] [place] [address] Jeremías Knox MD [address] [place] [phone] Deep vein thrombosis (DVT) of non-extremity [...] Associated Diagnoses Order Schedule Ambulatory referral to [facility] Anticoagulation Clinic Outpatient Referral Routine Deep vein thrombosis (DVT) of non-extremity vein, unspecified chronicity Ordered: 04/29/2021 documented as of this encounter Visit Diagnoses Diagnosis Deep vein thrombosis (DVT) of non-extremity vein, unspecified chronicity- Primary documented in this encounter Care Teams Individual Small Group Instructor Relationship Specialty Start Date End Date Jeremías Knox MD [address] [place] [phone] PCP - General Pediatrics 08/29/17 05/08/22 Jeremías Knox MD [address] [place] [phone] PCP - General Pediatrics 05/09/22 Angel Doty MBBS [address] [place] [phone] [email or web address] Medical Oncology 02/27/24 documented as of this encounter Additional Source Comments The information contained in this document represents components of the legal health record. It is not the complete legal health record.[facility]
--- OUTSIDE RECORDS SUMMARY | 2025-08-28 11:21 | XMS_ITS | Encounter Summary ---
Author Organization [facility] Address [address] [employer] [facility] [address] [place] [address] Phone Care Team Providers Care Steel Layer Name Role Phone Jeremías Knox MD Primary Care Provid er Angel Doty MBBS Unavailable [phone] Encounter Details Date Type Department Care Team (Latest Contact Info) Description 06/13/2023 Transcribe Orders Virtual Department [address] [place] [address] Jeremías Knox MD 35 [facility] 1 [place] [phone] Benign neoplasm of cerebral meninges [...] Primary documented in this encounter Care Teams Steel Layer Relationship Specialty Start Date End Date Jeremías Knox MD [address] [phone] PCP - General Pediatrics 05/09/22 Angel Doty MBBS [address] [place] [address] [phone] [email or web address] Medical Oncology 02/27/24 documented as of this encounter Additional Source Comments The information contained in this document represents components of the legal health record. It is not the complete legal health record.[facility]
--- OUTSIDE RECORDS SUMMARY | 2025-08-28 11:21 | XMS_ITS | Encounter Summary ---
Author Organization [facility] Address [address] [employer] [facility] [address] [place] [address] Phone Care Team Providers Care Paper Coating Supervisor Name Role Phone Jeremías Knox MD Primary Care Provid er Jeremías Knox MD Primary Care Provid er Angel Doty [facility] Unavailable [phone] Encounter Details Date Type Department Care Team (Latest Contact Info) Description 09/27/2017 Transcribe Orders [facility] Laboratory [address] [place] [address] Jeremías Knox MD 35 [facility] [address] [place] [address] Deep phlebothrombosis, antepartum, with delivery [...] EST) PT 26.1(H) 10.2 - 12.9 sec [facility] INR 2.3(H) 0.9 - 1.1 [facility] Comment:Therapeutic range fo r oral Vitamin K antagonists: 2.0-3.5 Blood 09/27/2017 9:43 AM EST 09/27/2017 9:48 AM EST Jeremías Knox MD LAB BLOOD ORDERABLES Final Result [facility] [address] [place] [address] documented in this encounter Visit Diagnoses Diagnosis Deep phlebothrombosis, antepartum, with delivery- Primary documented in this encounter Additional Health Concerns Infection Onset Date Last Indicated Resolved Time CoV-Exposed Comment:Recent close contact 05/27/2020 05/27/2020 06/10/2020 1:27 AM EDT documented as of this encounter Care Teams Paper Coating Supervisor Relationship Specialty Start Date End Date Jeremías Knox MD [address] [phone] PCP - General Pediatrics 08/29/17 05/08/22 Jermeías Knox MD [address] [place] [phone] PCP - General Pediatrics 05/09/22 Angel Doty MBBS [address] [place] [address] [phone] [email or web address] Medical Oncology 02/27/24 documented as of this encounter Additional Source Comments The information contained in this document represents components of the legal health record. It is not the complete legal health record.[facility]
--- OUTSIDE RECORDS SUMMARY | 2025-08-28 11:21 | XMS_ITS | Encounter Summary ---
Author Organization [facility] Address [address] [employer] [facility] [address] [place] [address] Phone Care Team Providers Care Bag Sealer Name Role Phone Jeremías Knox MD Primary Care Provid er Angel Doty MBBS Unavailable [phone] Encounter Details Date Type Department Care Team (Latest Contact Info) Description 08/25/2025 Transcribe Orders [facility] Specimen Processing [address] [place] [address] Gallito Razo MD [address] [phone] Diverticulitis of large intestine with perforation and abscess without bleeding (Primary Dx) Social History Tobacco Use Types [...] of this encounter Plan of Treatment Scheduled Orders Name Type Priority Associated Diagnoses Orde r Schedule Basic metabolic panel Lab Routine Diverticulitis of large intestine with perforation and abscess without bleeding Expected: 08/25/2025, Expires: 08/25/2026 documented as of this encounter Visit Diagnoses Diagnosis Diverticulitis of large intestine with perforation and abscess without bleeding- Primary documented in this encounter Care Teams Bag Sealer Relationship Specialty Start Date End Date Jeremías Knox MD [address] [place] [phone] PCP - General Pediatrics 05/09/22 Angel Doty MBBS [address] [place] [phone] [email or web address] Medical Oncology 02/27/24 documented as of this encounter Additional Source Comments The information contained in this document represents components of the legal health record. It is not the complete legal health record.[facility]
--- OUTSIDE RECORDS SUMMARY | 2025-08-28 11:21 | XMS_ITS | Encounter Summary ---
Author Organization [facility] Address [address] [employer] [facility] [address] [place] [address] Phone Care Team Providers Care New Car Get Ready Mechanic Name Role Phone Jeremías Knox MD Primary Care Provid er Angel Doty MBBS Unavailable [phone] Encounter Details Date Type Department Care Team (Late st Contact Info) Description 07/12/2023 Procedure Pass [facility], Ct Scan - [address] [address] Social History Tobacco Use Types Packs/Day Years [...] 3:04 PM EDT Analy Barksdale RN * [place] Suicide Severity Rating Scale (Screener/Recent Self-Report) Question [...] on filedocumented in this encounter Care Teams New Car Get Ready Mechanic Relationship Specialty Start Date End Date Jeremías Knox MD [address] [place] [address] [phone] PCP - General Pediatrics 05/09/22 Angel Doty MBBS [address] [place] [address] [phone] [email or web address] Medical Oncology 02/27/24 documented as of this encounter Additional Source Comments The information contained in this document represents components of the legal health record. It is not the complete legal health record.[facility]
--- OUTSIDE RECORDS SUMMARY | 2025-08-28 11:21 | XMS_ITS | Encounter Summary ---
Author Organization [facility] Address [address] [facility] [address] [place] [address] Phone Care Team Providers Care Sourcer Name Role Phone Jeremías Knox MD Primary Care Provid er Jeremías Knox MD Primary Care Provid er Angel Doty MB Unavailable [phone] Encounter Details Date Type Department Care Team (Latest Contact Info) Description 08/29/2017 Transcribe Orders [facility] Laboratory [address] [place] [address] Jeremías Knox MD 35 [facility] [address] [place] [address] Deep phlebothrombosis, antepartum, with delivery [...] EDT) PT 21.9(H) 10.2 - 12.9 sec [facility] INR 1.9(H) 0.9 - 1.1 [facility] Comment:Therapeutic range fo r oral Vitamin K antagonists: 2.0-3.5 Blood 08/29/2017 10:5 8 AM EDT 08/29/2017 3:58 PM EDT us Jeremías Knox MD LAB BLOOD ORDERABLES Edited Result - Final [facility] [address] [place] [address] documented in this encounter Visit Diagnoses Diagnosis Deep phlebothrombosis, antepartum, with delivery- Primary documented in this encounter Additional Health Concerns Infection Onset Date Last Indicated Resolved Time CoV-Exposed Comment:Recent close contact 05/27/2020 05/27/2020 06/10/2020 1:27 AM EDT documented as of this encounter Care Teams Sourcer Relationship Specialty Start Date End Date Jeremías Knox MD [address] [place] [address] [phone] PCP - General Pediatrics 08/29/17 05/08/22 Jeremías Knox MD [address] [place] [address] [phone] PCP - General Pediatrics 05/09/22 Angel Doty MBBS [address] [place] [address] [phone] [email or web address] Medical Oncology 02/27/24 documented as of this encounter Additional Source Comments The information contained in this document represents components of the legal health record. It is not the complete legal health record.[facility]
--- OUTSIDE RECORDS SUMMARY | 2025-08-28 11:21 | XMS_ITS | Encounter Summary ---
Author Organization [facility] Address [address] [facility] [address] [place] [address] Phone Care Team Providers Care Strategic Planning Analyst Name Role Phone Jeremías Knox MD Primary Care Provid er Angel Doty MBBS Unavailable [phone] Encounter Details Date Type Department Care Team (Late st Contact Info) Description 08/20/2024 Procedure Pass [facility], [address] [address] Social History Tobacco Use Types Packs/Day Years [...] on filedocumented in this encounter Care Teams Strategic Planning Analyst Relationship Specialty Start Date End Date Jeremías Knox MD [address] [phone] PCP - General Pediatrics 05/09/22 Angel Doty MBBS [address] [place] [phone] [email or web address] Medical Oncology 02/27/24 documented as of this encounter Additional Source Comments The information contained in this document represents components of the legal health record. It is not the complete legal health record.[facility]
--- OUTSIDE RECORDS SUMMARY | 2025-08-28 11:21 | XMS_ITS | Encounter Summary ---
Author Organization [facility] Address [address] [facility] [address] [place] [address] Phone Care Team Providers Care Shift Boss Name Role Phone Jeremías Knox MD Primary Care Provid er Angel Doty MBBS Unavailable [phone] Encounter Details Date Type Department Care Team (Latest Contact Info) Description 08/27/2025 Transcribe Orders [facility] Laboratory [address] [place] [address] Gallito Razo MD [address] [place] [address] Perforated diverticulum of large intestine (Primary Dx) Social History Tobacco Use Types [...] as of this encounter Results * (ABNORMAL) Basic metabolic panel (08/27/2025 10:37 AM EDT) SODIUM 129(L) 133 - 146 mmol/L [facility] CHLORIDE 97 96 - 108 mmol/L [facility] POTASSIUM 4.6 3.3 - 5.1 mmol/L [facility] CO2 21 21 - 35 mmol/L [facility] BUN 21(H) 6 - 19 mg/dL [facility] CREATININE 1.30 0.5 - 1.5 mg/dL [facility] GLUCOSE 92 70 - 99 mg/dL [facility] CALCIUM 9.0 8.4 - 10.3 mg/dL [facility] EGFR 62 >59 mL/min/1.7 3m2 [facility] Comment:Estimated glomerular filtration rate calculated using the CKD-EPI refit equation. ANION GAP 16 10 - 20 mmol/L [facility] Blood 08/27/2025 10:3 7 AM EDT 08/27/2025 10:44 AM EDT us Gallito Razo MD LAB BLOOD ORDERABLES Final Re sult [facility] [address] [place] [address] * (ABNORMAL) CBC and differential (08/27/2025 10:37 AM EDT) WBC 14.65(H) 4.00 - 11.00 K/uL [facility] RBC 4.35(L) 4.50 - 5.90 M/uL [facility] HGB 12.9(L) 13.5 - 17.5 g/dL [facility] HCT 38.2(L) 41.0 - 53.0 % [facility] PLT 129(L) 150 - 450 K/uL [facility] MCV 87.8 80.0 - 100.0 fL [facility] MCH 29.7 27.0 - 31.0 pg [facility] MCHC 33.8 32.0 - 36.0 g/dL [facility] RDW 14.2 11.5 - 14.5 % [facility] MPV 8.6 8.4 - 12.0 fL [facility] NRBC 0.00 0.00 /100 WBCs [facility] ABSOLUTE NRBC 0.00 0.00 K/uL [facility] DIFF METHOD Manual [facility] TOTAL CELLS COUNTED 100 [facility] NEUTS 76.0 48.0 - 76.0 % [facility] BANDS 1.0 0 - 10 % [facility] LYMPHS 13.0(L) 18.0 - 41.0 % [facility] MONOS 6.0 4.0 - 11.0 % [facility] EOS 1.0 0.0 - 5.0 % [facility] BASOS 1.0 0.0 - 1.5 % [facility] MYELOS 1.0(H) 0 % [facility] METAS 1.0(H) 0 % [facility] ABSOLUTE NEUTS 11.28(H) 1.92 - 7.60 K/uL [facility] ABSOLUTE LYMPHS 1.90 0.72 - 4.10 K/uL [facility] ABSOLUTE MONOS 0.88 0.16 - 1.10 K/uL [facility] ABSOLUTE EOS 0.15 0.00 - 0.50 K/uL [facility] ABSOLUTE BASOS 0.15 0.00 - 0.15 K/uL [facility] ABSOLUTE MYELOS 0.15 K/uL [facility] ABSOLUTE METAS 0.15 K/uL [facility] Blood 08/27/2025 10:3 7 AM EDT 08/27/2025 10:44 AM EDT us Gallito Razo MD LAB BLOOD ORDERABLES Final Re sult [facility] [address] [place] [address] documented in this encounter Visit Diagnoses Diagnosis Perforated diverticulum of large intestine- Primary Diverticulosis of colon (without mention of hemorrhage) documented in this encounter Care Teams Shift Boss Relationship Specialty Start Date End Date Jeremías Knox MD [address] [place] [phone] PCP - General Pediatrics 05/09/22 Angel Doty MBBS [address] [place] [phone] [email or web address] Medical Oncology 02/27/24 documented as of this encounter Additional Source Comments The information contained in this document represents components of the legal health record. It is not the complete legal health record.[facility]
--- OUTSIDE RECORDS SUMMARY | 2025-08-28 11:21 | XMS_ITS | Encounter Summary ---
Author Organization [facility] Address [address] [place] [address] Phone Care Team Providers Care Pebble Mill Operator Name Role Phone Jeremías Knox MD Primary Care Provid er Angel Doty MBBS Unavailable [phone] Encounter Details Date Type Department Care Team (Late st Contact Info) Description 08/25/2025 Documentation Anticoagulation Clinic [address] [place] [address] Kaylene Gutierres RN [address] [place] [address] Social History Tobacco Use Types Packs/Day Years [...] AM EDT documented as of this encounter Progress Notes * Kaylene Gutierres RN - 08/25/2025 2:46 PM EDT Rusty verified my instructions this morning. He will test 08/27/25. documented in this encounter Plan of Treatment Not on file documented as of this encounter Visit Diagnoses Diagnosis Acute venous embolism and thrombosis of deep vessels of proximal lower extremity [I82.4Y9]- Primary Acute venous embolism and thrombosis of deep vessels of proximal lower extremity Chronic anticoagulation Encounter for long-term (current) use of anticoagulants Antiphospholipid syndrome Primary hypercoagulable state documented in this encounter Care Teams Pebble Mill Operator Relationship Specialty Start Date End Date Jeremías Knox MD [address] [place] [phone] PCP - General Pediatrics 05/09/22 Angel Doty MBBS [address] [place] [phone] [email or web address] Medical Oncology 02/27/24 documented as of this encounter Additional Source Comments The information contained in this document represents components of the legal health record. It is not the complete legal health record.[facility]
--- OUTSIDE RECORDS SUMMARY | 2025-08-28 11:21 | XMS_ITS | Encounter Summary ---
Author Organization [facility] Address [address] [facility] [address] [place] [address] Phone Care Team Providers Care Bait Tier Name Role Phone Jeremías Knox MD Primary Care Provid er Angel Doty MBBS Unavailable [phone] Reason for Visit * Reason Comments INR Check Encounter Details Date Type Department Care Team (Late st Contact Info) Description 08/27/2025 Documentation Anticoagulation Clinic [address] [place] [address] Kaylene Gutierres, RN [address] [place] [address] INR Check Social History Tobacco Use Types Packs/Day Years [...] Progress Notes * Kaylene Gutierres RN - 08/27/2025 1:38 PM EDT INR result received from [facility] lab is 1.9. Rusty had no issues with elevated INR. He reported he was also taking lots of acetaminophen around the clock prior to elevated INR on Sunday. Rusty will resume warfarin at 50mg/week. Next test in a week. Rusty has appointment tomorrow with surgeon at [facility]. He likely needs colectomy. Enrique keep me updated. Instructions reviewed with Rusty. He verbalized understanding. 08/27/2025 Anticoagulation Monitoring INR Goal 2.0-3.0 Assoc. INR Date 08/27/2025 Associated INR 1.9 (L) Pt. deviation No Sunday dose 5 mg Sunday dose 10 mg Sunday dose 5 mg Sunday dose 10 mg dose Hold (08/27) Sunday dose 10 mg Sunday dose 5 mg Weekly dose PRESCRIBED 50 mg Return date 09/03/2025 documented in this encounter Plan of Treatment [...] state documented in this encounter Care Teams Bait Tier Relationship Specialty Start Date End Date Jeremías Knox MD [address] [place] [phone] PCP - General Pediatrics 05/09/22 Angel Doty MBBS [address] [place] [phone] [email or web address] Medical Oncology 02/27/24 documented as of this encounter Additional Source Comments The information contained in this document represents components of the legal health record. It is not the complete legal health record.[facility]
--- OUTSIDE RECORDS SUMMARY | 2025-08-28 11:21 | XMS_ITS | Encounter Summary ---
Author Organization [facility] Address [address] [employer] [facility] [address] [place] [address] Phone Care Team Providers Care Public Works Inspector Name Role Phone Jeremías Knox MD Primary Care Provid er Angel Doty MBBS Unavailable [phone] Encounter Details Date Type Department Care Team (Late st Contact Info) Description 07/12/2023 Procedure Pass [facility], [address] [address] Social History Tobacco Use Types Packs/Day Years [...] 3:04 PM EDT Analy Barksdale RN * [place] Suicide Severity Rating Scale (Screener/Recent Self-Report) Question [...] filedocumented in this encounter Care Teams Public Works Inspector Relationship Specialty Start Date End Date Jeremías Knox MD [address] [place] [phone] PCP - General Pediatrics 05/09/22 Angel Doty MBBS [address] [place] [phone] [email or web address] Medical Oncology 02/27/24 documented as of this encounter Additional Source Comments The information contained in this document represents components of the legal health record. It is not the complete legal health record.[facility]
--- OUTSIDE RECORDS SUMMARY | 2025-08-28 11:21 | XMS_ITS | Encounter Summary ---
Author Organization [facility] Address [address] [facility] [address] [place] [address] Phone Care Team Providers Care Intervention Teacher Name Role Phone Jeremías Knox MD Primary Care Provid er Jeremías Knox MD Primary Care Provid er Angel Doty [facility] Unavailable [phone] Encounter Details Date Type Department Care Team (Latest Contact Info) Description 12/27/2017 Transcribe Orders [facility] Laboratory [address] [place] [address] Jeremías Knox MD [address] [phone] Essential hypertension, benign (Primary Dx) [...] EST) PSA 1.17 0 - 4.00 ng/mL [facility] Blood 12/27/2017 9:10 AM EST 12/27/2017 9:16 AM EST Jeremías Knox MD LAB BLOOD ORDERABLES Final Result Performing Organization Address [facility] Co de Phone Number [address] [address] * (ABNORMAL) CBC (12/27/2017 9:05 AM EST) WBC 4.12 3.40 - 11.20 K/uL [facility] RBC 5.72(H) 4.50 - 5.50 M/uL [facility] HGB 18.0(H) 13.0 - 17.0 g/dL [facility] HCT 51.8(H) 40.0 - 51.0 % [facility] PLT 171 130 - 400 K/uL [facility] MCV 90.6 79.0 - 98.0 fL [facility] MCH 31.5 27.0 - 34.8 pg [facility] MCHC 34.7 31.5 - 36.0 g/dL [facility] RDW 12.6 10.8 - 14.6 % [facility] MPV 9.7 9.4 - 12.4 fl [facility] NRBC 0.00 /100 WBCs [facility] ABSOLUTE NRBC 0.00 K/uL [facility] Blood 12/27/2017 9:05 AM EST 12/27/2017 9:17 AM EST Jeremías Knox MD LAB BLOOD ORDERABLES Final Result Performing Organization Address City/[facility] Co de Phone Number [address] [address] * (ABNORMAL) Lipid panel (12/27/2017 9:05 AM EST) HDL 53 mg/dL [facility] Comment: Interpretation: Risk Level Males Decreased >45 mg/dL Average 40-45 mg/dL Increased <40 mg/dL CHOLESTEROL 287(H) 0 - 240 mg/dL [facility] TRIGLYCERIDES 165(H) 30 - 160 mg/dL [facility] LDL 201(H) 50 - 129 mg/dL [facility] Comment: LDL levels in terms of risk for coronary heart disease: <100 mg/dL: Optimal 100-129 mg/dL: Near or above optimal 130-159 mg/dL: Borderline high 160-189 mg/dL: High >190 mg/dL: Very High CARDIAC RISK RATIO 5.4(H) 3.4 - 5.0 C [facility] Blood 12/27/2017 9:05 AM EST 12/27/2017 9:17 AM EST Jeremías Knox MD LAB BLOOD ORDERABLES Final Result [address] [address] * (ABNORMAL) Basic metabolic panel (12/27/2017 9:05 AM EST) SODIUM 136 133 - 146 mmol/L [facility] CHLORIDE 96 96 - 108 mmol/L [facility] POTASSIUM 4.1 3.3 - 5.1 mmol/L [facility] CO2 28 21 - 35 mmol/L [facility] BUN 26(H) 6 - 19 mg/dL [facility] CREATININE 0.90 0.5 - 1.5 mg/dL [facility] GLUCOSE 93 70 - 99 mg/dL [facility] CALCIUM 9.6 8.4 - 10.3 mg/dL [facility] EGFR >60 >60 mL/min/1.7 3m2 [facility] Comment:Abnormal if <60. If patient is -[place], multiply the result by 1.21. ANION GAP 16 10 - 20 mmol/L [facility] Blood 12/27/2017 9:05 AM EST 12/27/2017 9:17 AM EST Jeremías Knox MD LAB BLOOD ORDERABLES Final Result Performing Organization Address [facility]/ZIP Co de Phone Number [address] [address] documented in this encounter Visit Diagnoses Diagnosis Essential hypertension, benign- Primary documented in this encounter Additional Health Concerns Infection Onset Date Last Indicated Resolved Time CoV-Exposed Comment:Recent close contact 05/27/2020 05/27/2020 06/10/2020 1:27 AM EDT documented as of this encounter Care Teams Intervention Teacher Relationship Specialty Start Date End Date Jeremías Knox MD [address] [place] [phone] PCP - General Pediatrics 08/29/17 05/08/22 Jeremías Knox MD [address] [place] [phone] PCP - General Pediatrics 05/09/22 Angel Doty MBBS [address] [place] [phone] [email or web address] Medical Oncology 02/27/24 documented as of this encounter Additional Source Comments The information contained in this document represents components of the legal health record. It is not the complete legal health record.[facility]
--- OUTSIDE RECORDS SUMMARY | 2025-08-28 11:21 | XMS_ITS | Encounter Summary ---
Author Organization [facility] Address [address] [facility] [address] [place] [address] Phone Care Team Providers Care Flight Technician Name Role Phone Jeremías Knox MD Primary Care Provid er Angel Doty MBBS Unavailable [phone] Encounter Details Date Type Department Care Team (Late st Contact Info) Description 07/12/2023 Procedure Pass [facility], Ct Scan - [address] [address] Social History Tobacco Use Types Packs/Day Years [...] 3:04 PM EDT Analy Barksdale RN * [place] Suicide Severity Rating Scale (Screener/Recent Self-Report) Question [...] on filedocumented in this encounter Care Teams Flight Technician Relationship Specialty Start Date End Date Jeremías Knox MD [address] [place] [phone] PCP - General Pediatrics 05/09/22 Angel Doty MBBS [address] [place] [phone] [email or web address] [email or web address] Medical Oncology 02/27/24 documented as of this encounter Additional Source Comments The information contained in this document represents components of the legal health record. It is not the complete legal health record.[facility]
--- OUTSIDE RECORDS SUMMARY | 2025-08-28 11:21 | XMS_ITS | Encounter Summary ---
Author Organization [facility] Address [address] [facility] [address] [place] [address] Phone Care Team Providers Care Business Machines Teacher Name Role Phone Jeremías Knox MD Primary Care Provid er Angel Doty MBBS Unavailable [phone] Reason for Referral * MRI/CAT Scan - Closed Specialty Diagnoses / Procedures Referred By Contreji ramesh Referred To Contact Radiology Diagnoses Benign neoplasm of cerebral meninges Procedures MRI Brain CHG MRI BRAIN COMBO System, Provider Not In, [facility] [address] [address] Referral ID Status Reason Start Date Expiration Date Visits Re quested Visits Authorized [id number] Closed 08/20/2024 10/18/2024 1 1 Encounter Details Date Type Department Care Team (Late st Contact Info) Description 08/20/2024 Transcribe Orders Virtual Department [address] [place] [address] System, Provider Not In, [facility] [address] [address] Benign neoplasm of cerebral meninges (Primary Dx) [...] meninges documented in this encounter Care Teams Business Machines Teacher Relationship Specialty Start Date End Date Jeremías Knox MD [address] [place] [phone] PCP - General Pediatrics 05/09/22 Angel Doty MBBS [address] [place] [phone] [email or web address] Medical Oncology 02/27/24 documented as of this encounter Additional Source Comments The information contained in this document represents components of the legal health record. It is not the complete legal health record.[facility]
--- OUTSIDE RECORDS SUMMARY | 2025-08-28 11:21 | XMS_ITS | Encounter Summary ---
Author Organization [facility] Address [address] [facility] [address] [place] [address] Phone Care Team Providers Care Extrusion Process Operator Name Role Phone Jeremías Knox MD Primary Care Provid er Jeremías Knox MD Primary Care Provid er Angel Doty [facility] Unavailable [phone] Reason for Referral * Consultation (Elective) - Closed Specialty Diagnoses / Procedures Referred By Contac t Referred To Contact Diagnoses Acute venous embolism and thrombosis of deep vessels of proximal lower extremity, unspecified laterality Jeremías Knox MD Phone: tel: fax: [facility] [address] [place] [address] Phone: tel: Referral ID Status Reason Start Date Expiration Date Visits Re quested Visits Authorized [id number] Closed 12/20/2017 12/20/2018 1 1 Encounter Details Date Type Department Care Team (Latest Contact Info) Description 12/20/2017 Transcribe Orders [facility] Department [address] [place] [address] Jeremías Knox MD [address] [place] [phone] Acute venous embolism and thrombosis of [...] Associated Diagnoses Order Schedule Ambulatory referral to [facility] Anticoagulation Clinic Outpatient Referral Routine Acute venous [...] documented as of this encounter Care Teams Extrusion Process Operator Relationship Specialty Start Date End Date Jeremías Knox MD [address] [place] [phone] PCP - General Pediatrics 08/29/17 05/08/22 Jeremías Knox MD [address] [place] [phone] PCP - General Pediatrics 05/09/22 Angel Doty MBBS [address] [place] [phone] [email or web address] Medical Oncology 02/27/24 documented as of this encounter Additional Source Comments The information contained in this document represents components of the legal health record. It is not the complete legal health record.[facility]
--- OUTSIDE RECORDS SUMMARY | 2025-08-28 11:21 | XMS_ITS | Encounter Summary ---
Author Organization [facility] Address [address] [facility] [address] [place] [address] Phone Care Team Providers Care Accounts Payable Payroll Coordinator Name Role Phone Jeremías Knox MD Primary Care Provid er Angel Doty MBBS Unavailable [phone] Reason for Visit * Reason Onset Date Comments INR Check 08/24/2025 Supratherapeutic INR Greater Or Equal To 5 08/24 Encounter Details Date Type Department Care Team (Late st Contact Info) Description 08/24/2025 Telephone Anticoagulation Clinic [address] [place] [address] Kaylene Gutierres RN [address] [place] [address] [email or web address] INR Check; Supratherapeutic INR Greater Or Equal To 5 Social History Tobacco Use Types Packs/Day Years [...] Progress Notes * Kaylene Gutierres RN - 08/24/2025 4:04 PM EDT INR result received from [facility] lab is elevated at 5.5. Rusty is just out of the hospital ([facility]) on 08/17/25. He was instructed by provider to take warfarin 12.5mg daily on discharge. INR 08/20/25 was 2.6 and he resumed his warfarin at his typical dose of 50mg/week. Rusty takes warfarin in AM, so he has already taken it today. I will hold the warfarin x 3 doses. Next test 08/27/25. Detailed voice message left for Rusty on his mobile phone. Portal message sent as well. I cautioned Rusty on safety concerns. Progress note sent to provider. Instructions reviewed with MOTOR CARRIER INSPECTOR from [facility]. documented in this encounter Plan of Treatment [...] state documented in this encounter Care Teams Accounts Payable Payroll Coordinator Relationship Specialty Start Date End Date Jeremías Knox MD [address] [place] [phone] PCP - General Pediatrics 05/09/22 Angel Doty MBBS [address] [phone] [email or web address] Medical Oncology 02/27/24 documented as of this encounter Additional Source Comments The information contained in this document represents components of the legal health record. It is not the complete legal health record.[facility]
--- OUTSIDE RECORDS SUMMARY | 2025-08-28 11:21 | XMS_ITS | Encounter Summary ---
Author Organization [facility] Address [address] [facility] [address] [place] [address] Phone Care Team Providers Care Cable Testers Helper Name Role Phone Jeremías Knox MD Primary Care Provid er Jeremías Knox MD Primary Care Provid er Angel Doty MB Unavailable [phone] Encounter Details Date Type Department Care Team (Latest Contact Info) Description 09/27/2017 Transcribe Orders [facility] Laboratory [address] [place] [address] Jeremías Knox MD [address] [facility] [address] [place] [address] Deep phlebothrombosis, antepartum, with delivery [...] documented as of this encounter Care Teams Cable Testers Helper Relationship Specialty Start Date End Date Jeremías Knox MD [address] [place] [phone] PCP - General Pediatrics 08/29/17 05/08/22 Jeremías Knox MD [address] [place] [phone] PCP - General Pediatrics 05/09/22 Angel Doty MBBS [address] [place] [address] [phone] [email or web address] Medical Oncology 02/27/24 documented as of this encounter Additional Source Comments The information contained in this document represents components of the legal health record. It is not the complete legal health record.[facility]
== END 2025-08-28 10:49 | disposition home or self-care (01) ==
LOC: HO.HGS 10:03
PROVIDERS: PCP Internal Medicine; Visit Provider Physician Assistant Surgical
DX: K57.32 Diverticulitis of large intestine without perforation or abscess without bleeding (principal); Z79.01 Long term (current) use of anticoagulants
CPT/HCPCS: 99214

== ENCOUNTER → 2025-09-01 12:58 | Outpatient (BNV) | payer OTHER, SELFPAY | PROVIDERS: Admitting Provider Surgery; PCP Internal Medicine | DX: Z45.2 Encounter for adjustment and management of vascular access device (principal); D69.59 Other secondary thrombocytopenia | CPT/HCPCS: 36573 ==

== ENCOUNTER 2025-09-01 14:45 | Outpatient (BNV) | payer OTHER, SELFPAY | END 2025-09-08 15:25 | PROVIDERS: Admitting Provider Surgery; PCP Internal Medicine; Visit Provider Internal Medicine Cardiovascular Disease | DX: I48.91 Unspecified atrial fibrillation (principal); I45.10 Unspecified right bundle-branch block | CPT/HCPCS: 93010 ==

== ENCOUNTER 2025-09-01 14:45 | Outpatient (BNV) | payer OTHER, SELFPAY | END 2025-09-06 11:50 | PROVIDERS: Admitting Provider Surgery; PCP Internal Medicine; Visit Provider Radiology Diagnostic Radiology | DX: J90 Pleural effusion, not elsewhere classified (principal) | CPT/HCPCS: 71045 ==

== ENCOUNTER 2025-09-01 14:45 | Outpatient (BNV) | payer OTHER, SELFPAY | END 2025-09-08 12:03 | PROVIDERS: Admitting Provider Surgery; PCP Internal Medicine; Visit Provider Radiology Diagnostic Radiology | DX: K66.1 Hemoperitoneum (principal); R14.0 Abdominal distension (gaseous) | CPT/HCPCS: 74176 ==

== ENCOUNTER 2025-09-01 14:45 | Outpatient (BNV) | payer OTHER, SELFPAY | END 2025-09-07 16:03 | PROVIDERS: Admitting Provider Surgery; PCP Internal Medicine; Visit Provider Radiology Diagnostic Radiology | DX: D68.61 Antiphospholipid syndrome (principal); R22.31 Localized swelling, mass and lump, right upper limb | CPT/HCPCS: 93971 ==

== ENCOUNTER 2025-09-01 14:45 | Outpatient (BNV) | payer OTHER, SELFPAY | END 2025-09-09 07:00 | PROVIDERS: Admitting Provider Surgery; PCP Internal Medicine; Visit Provider Internal Medicine Cardiovascular Disease | DX: I51.7 Cardiomegaly (principal); I34.0 Nonrheumatic mitral (valve) insufficiency; I35.0 Nonrheumatic aortic (valve) stenosis | CPT/HCPCS: 93306 ==

== ENCOUNTER 2025-09-01 14:45 | Inpatient (IN) | payer OTHER, SELFPAY ==
--- OUTSIDE RECORDS SUMMARY | 2025-08-12 04:30 | XMS_ITS ---
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 Name Role Phone Jeremías Knox MD Primary Care Provider Ceferino Pabon Unavailable [phone] Encounters Encounter Location Date Provider Diagnosis [facility] [address] [place] [address] 08/12/2025 Ceferino aLyton Plan Of Treatment No Information Progress Notes * Alejandro CORREADOB:[birth year] (64 yo M)Acc No.[id number]:08/12/2025 Follow-Up Visit Patient: Alejandro RODRIGUEZ Provider: Gisela Layton MD, MSc, CWSP :1960 A ge:64 Y S ex:Male Date:08/12/2025 Address: [address] [id number] Pcp:Jeremías Knox MD Subjective: * Chief Complaints: * * Medical History: Objective: * Vitals: Assessment: Plan: * Treatment: * Billing Information: * Visit Code: * Procedure Codes: * Electronic signature of Antoinette Layton MD on 09/01/2025 at 03:35 PM EST Sign off status: Pending * Provider: Gisela Layton MD, MSc, CWSP Date: Generated for Brian ray/Braxton/Kristin on: 11/01/2024 03:35 PM EST
--- OUTSIDE RECORDS SUMMARY | 2025-08-27 09:11 | XMS_ITS | Encounter Summary ---
Author Organization [facility] Address [address] [place] [address] Phone Care Team Providers Care Right Of Way Agent Name Role Phone Jeremías Knox MD Primary Care Provid er Angel Doty MBBS Unavailable [phone] Encounter Details Date Type Department Care Team (Latest Contact Info) Description 08/27/2025 10:11 AM EDT - 08/27/2025 11:59 PM EDT Hospital Encounter [facility] Main [address] [place] [address] Gallito Razo MD [address] [place] [address] Discharge Disposition: Home or Self Care [...] Priority Date/Time Associated Diagnosis Comments PT-INR Routine 08/27/2025 10:37 AM EDT DVT (deep venous thrombosis) APS (antiphospholipid syndrome) Chronic anticoagulation CBC AND DIFFERENTIAL Routine 08/27/2025 10:37 AM EDT Perforated diverticulum of large intestine BASIC METABOLIC PANEL (BMP) Routine 08/27/2025 10:37 AM EDT Perforated diverticulum of large intestine documented in this encounter Results * (ABNORMAL) CBC and differential (08/27/2025 10:37 AM EDT) WBC 14.65(H) 4.00 - 11.00 K/uL [facility] RBC 4.35(L) 4.50 - 5.90 M/uL [facility] HGB 12.9(L) 13.5 - 17.5 g/dL [facility] HCT 38.2(L) 41.0 - 53.0 % [facility] PLT 129(L) 150 - 450 K/uL [facility] MCV 87.8 80.0 - 100.0 fL [facility] MCH 29.7 27.0 - 31.0 pg [facility] MCHC 33.8 32.0 - 36.0 g/dL [facility] RDW 14.2 11.5 - 14.5 % [facility] MPV 8.6 8.4 - 12.0 fL [facility] NRBC 0.00 0.00 /100 WBCs [facility] ABSOLUTE NRBC 0.00 0.00 K/uL [facility] DIFF METHOD Manual [facility] TOTAL CELLS COUNTED 100 [facility] NEUTS 76.0 48.0 - 76.0 % [facility] BANDS 1.0 0 - 10 % [facility] LYMPHS 13.0(L) 18.0 - 41.0 % [facility] MONOS 6.0 4.0 - 11.0 % [facility] EOS 1.0 0.0 - 5.0 % [facility] BASOS 1.0 0.0 - 1.5 % [facility] MYELOS 1.0(H) 0 % [facility] METAS 1.0(H) 0 % [facility] ABSOLUTE NEUTS 11.28(H) 1.92 - 7.60 K/uL [facility] ABSOLUTE LYMPHS 1.90 0.72 - 4.10 K/uL [facility] ABSOLUTE MONOS 0.88 0.16 - 1.10 K/uL [facility] ABSOLUTE EOS 0.15 0.00 - 0.50 K/uL [facility] ABSOLUTE BASOS 0.15 0.00 - 0.15 K/uL [facility] ABSOLUTE MYELOS 0.15 K/uL [facility] ABSOLUTE METAS 0.15 K/uL [facility] Blood 08/27/2025 10:3 7 AM EDT 08/27/2025 10:44 AM EDT us Gallito Razo MD LAB BLOOD BKR ORDERABLES Mandy l Result Performing Organization Address City/[facility]/ZIP Co de Phone Number [address] [address] * (ABNORMAL) Basic metabolic panel (08/27/2025 10:37 AM EDT) SODIUM 129(L) 133 - 146 mmol/L [facility] CHLORIDE 97 96 - 108 mmol/L [facility] POTASSIUM 4.6 3.3 - 5.1 mmol/L [facility] CO2 21 21 - 35 mmol/L [facility] BUN 21(H) 6 - 19 mg/dL [facility] CREATININE 1.30 0.5 - 1.5 mg/dL [facility] GLUCOSE 92 70 - 99 mg/dL [facility] CALCIUM 9.0 8.4 - 10.3 mg/dL [facility] EGFR 62 >59 mL/min/1.7 3m2 [facility] Comment:Estimated glomerular filtration rate calculated using the CKD-EPI refit equation. ANION GAP 16 10 - 20 mmol/L [facility] Blood 08/27/2025 10:3 7 AM EDT 08/27/2025 10:44 AM EDT us Gallito Razo MD LAB BLOOD BKR ORDERABLES Mandy l Result [address] [address] * (ABNORMAL) PT-INR (08/27/2025 10:37 AM EDT) PT 24.0(H) 10.2 - 12.9 sec [facility] INR 1.9(H) 0.9 - 1.1 [facility] Comment:Therapeutic range fo r oral Vitamin K antagonists: 2.0-3.5 Blood 08/27/2025 10:3 7 AM EDT 08/27/2025 10:44 AM EDT us Jeremías Knox MD LAB BLOOD BKR ORDERA BLES Final Result [address] [address] documented in this encounter Visit Diagnoses Diagnosis DVT (deep venous thrombosis) Acute venous embolism and thrombosis of unspecified deep vessels of lower extremity APS (antiphospholipid syndrome) Primary hypercoagulable state Chronic anticoagulation Encounter for long-term (current) use of anticoagulants Perforated diverticulum of large intestine Diverticulosis of colon (without mention of hemorrhage) documented in this encounter Care Teams Right Of Way Agent Relationship Specialty Start Date End Date Jeremías Knox MD [address] [place] [phone] PCP - General Pediatrics 05/09/22 Angel Doty MBBS [address] [place] [phone] [email or web address] Medical Oncology 02/27/24 documented as of this encounter Additional Source Comments The information contained in this document represents components of the legal health record. It is not the complete legal health record.[facility]
--- NOTE | ~2025-09-01 | XR_ITS ---
EXAMINATION: XR CHEST CLINICAL INFORMATION: NG tube placement COMPARISON: August 13, 2025. TECHNIQUE: Frontal view of the chest was obtained. FINDINGS: Submitted for interpretation on September 07, 2025 at 8:37 AM. The NG tube is below the left hemidiaphragm in the left upper quadrant abdomen. Poor inspiratory film. Right-sided PICC line and slightly right atrium region. Patchy opacity left lower hemithorax. No pneumothorax. [place] prominent small bowel loops no fully included in the [id number]. Patient's large body habitus. XR/XR chest 1V IMPRESSION: NG tube ending likely in the stomach. Small to moderate volume left-sided pleural effusion with the compression atelectasis versus airspace disease. Right-sided PICC line ends at right atrium. Probable ileus versus bowel obstruction.. Electronically signed by: Robert Portillo MD 09/07/2025 08:37 AM [facility]
--- NOTE | ~2025-09-01 | CT_ITS ---
EXAMINATION: CT ABDOMEN AND PELVIS WITHOUT CONTRAST CLINICAL INFORMATION: follow up . Hemoperitoneum, abdominal distension. COMPARISON: 09/05/2025, 08/16/2025, and 08/11/2025 TECHNIQUE: Multidetector volumetric imaging was performed from the superior aspect of the liver through the pubic symphysis. Sagittal and coronal reformatted images were obtained on the technologist's workstation. This CT examination was performed using dose optimization techniques as appropriate, variously including the following: *Automated exposure control *Adjustment of mA and/or kV according to patient size (this includes techniques or standardized protocols for targeted exams where dose is matched to indication/reason for exam; i.e. extremities or head) *Use of iterative reconstruction technique FINDINGS: LUNG BASES: There is mild dependent atelectasis, left greater than right. LIVER, GALLBLADDER, AND BILIARY TREE: The liver is normal in size, shape, and attenuation. No focal hepatic lesion or biliary ductal dilatation is present. There is increased density throughout the gallbladder layering near the fundus consistent with vicariously excreted contrast. PANCREAS: Unremarkable. SPLEEN: Unremarkable. ADRENAL GLANDS: Unremarkable. KIDNEYS AND URETERS: There is mild renal cortical atrophy. There is no hydronephrosis or nephrolithiasis. BLADDER: Trace gas or air is again present in the bladder. There is no gallbladder wall thickening. GASTROINTESTINAL TRACT: NG tube terminates in the gastric body. Surgical anastomosis is noted at the rectosigmoid junction. There is a subcutaneous catheter extending through the left lower quadrant. The catheter is directed cephalad and extends up to the mid lateral left abdomen. Fluid and gas distended small and large bowel. Fluid-fluid levels are in plane which is most consistent with paralytic ileus. Multilobulated areas of hyperdensity are again identified, mostly in the left abdomen, with one area extending toward the right, situated posterior to the cecum. The volume of the densities have decreased in size since the prior. For example, axial CT #3 image 43/120, anterior to the mid left kidney, measures 2.1 x 7.9 cm and previously measured 2.5 x 8.3 cm. There are a few small foci of gas immediately posterior to the percutaneous catheter in the left lower abdomen (54/120). Previously there is a loculated high density mass in this region, suspect hematoma. No other extra luminal gas is identified. ABDOMINAL WALL: Surgical keisha remain in place in the mid and lower abdomen Fat stranding is noted in the subcutaneous soft tissues of the left greater than right abdomen. LYMPH NODES: Normal. VASCULAR: Unremarkable. PELVIC VISCERA: Unremarkable. OSSEOUS STRUCTURES: Unremarkable. CT/CT abdomen pelvis wo IV con IMPRESSION: There is a percutaneous catheter in the left abdomen. Multiloculated areas of hyperdensity that are mostly in the left abdomen, but extending across midline to the retrocecal region and right paracolic gutter, demonstrate interval decrease in volume. There are a few minute bubbles of extraluminal gas located just posterior to the percutaneous catheter in the left abdomen, presumably related to the catheter rather than gas-forming organisms. The gas is in an area where a focal hematoma has been mostly drained. Fluid and gas distend the small and large bowel. There is no transition zone. Additionally, fluid-fluid levels are in-plane suggesting paralytic ileus. Stable trace gas in the bladder is suspected to be related to intermittent catheterization. Correlate clinically to rule out infection. There is mild renal cortical atrophy raising question of chronic kidney disease. Fleischner guidelines were followed. Electronically signed by: Navi William MD 09/08/2025 12:46 PM EST
--- NOTE | ~2025-09-01 | IR_ITS ---
CLINICAL HISTORY: Heparin-induced thrombocytopenia. PROCEDURES: 1. Real-time ultrasound-guided access into the right basilic vein after documentation of selected vessel patency, and permanent imaging storing in the patient record. 2. Placement of a 5 fr 47 cm, dual lumen power PICC CLINICIANS: Femi Jones NP MEDICATIONS: -Lidocaine 1% 10 mL SQ. -Antibiotics: None. Complications: None. Estimated blood loss: <5 ml Specimens: None. Contrast: None. Fluoroscopy time: 0.5 min Procedure note: The procedure, risks, benefits, and alternatives were carefully explained to the patient and written informed consent was obtained. The patient was placed supine on the fluoroscopy table. A timeout was performed. The right arm was prepped and draped in usual sterile fashion. Using ultrasound and fluoroscopic guidance, venous access was achieved into the basilic vein with a micropuncture set. A peel-away sheath was advanced over the wire. The 0.018 inch wire was advanced into the right atrium. A 5 fr, 47 cm, dual lumen power PICC was advanced over the wire, with its tip in the the caval atrial junction. The wire was removed. The catheter was tested and secured with a StatLock dressing. A permanent ultrasound image and chest fluoroscopic image was saved to PACS. The patient was stable after the procedure and was transferred to the floor. FINDINGS: 1. Patent right basilic vein 2. Placement of a 5 fr 47 cm, dual lumen power PICC IR/IR cvc insert peripheral IMPRESSION: Placement of a 5 fr 47 cm, dual lumen power PICC PLAN: -The catheter may be used immediately. This procedure was performed by Femi Jones NP, and directly supervised by Dilshad Sweet M.D. Electronically signed by: Dilshad Sweet MD 09/02/2025 07:34 AM [facility] Workstation: [id number]
--- NOTE | ~2025-09-01 | US_ITS ---
EXAMINATION: US TRIPLEX UPPER EXTREMITY, RIGHT CLINICAL INFORMATION: Right arm swelling and pain COMPARISON: None available. TECHNIQUE: Color-flow triplex imaging with spectral analysis and compression Doppler was performed on the right upper extremity. FINDINGS: The right internal jugular, subclavian, and axillary veins are patent and free of thrombus. The imaged segment of the right brachiocephalic vein is patent. Spectral doppler waveforms are normal. The brachial, cephalic, radial, and ulnar veins are patent and compressible. There is limited compression of the basilic vein due to a PICC line. US/US venous duplex UE RT IMPRESSION: No evidence of deep venous thrombosis involving the right upper extremity. Electronically signed by: Navi William MD 09/07/2025 05:14 PM [facility]
--- NOTE | ~2025-09-01 | CT_ITS ---
CLINICAL HISTORY: Abd distension after colon surgery. Exam: Unenhanced CT abdomen and pelvis with multiplanar reformats. Comparison: 08/16/2025. Findings: CT abdomen: Lung bases reveal mild bibasilar atelectasis. Liver is free of focal lesions and ductal dilatation. Gallbladder reveals similar mildly dense sludge. No CT evidence of cholecystitis. Spleen is unremarkable. Pancreas is free of focal lesions and ductal dilatation. Adrenal glands appear unremarkable. Kidneys appear unremarkable. No urolithiasis or hydroureteronephrosis. There is no abdominal ascites, however there are multifocal hyperdense intraperitoneal collections (for example, 5 x 5 cm collection inferior to the stomach on 4; 247, 51 Hounsfield units, which extends inferiorly (4; 246 -390), to another poorly circumscribed multilocular hyperdense collection with largest component measuring up to 5.8 cm (4; 393, 53 Hounsfield units), with smaller hyperdense collections extending inferiorly in the left pericolonic region (4; 398-497), findings compatible with multifocal hemoperitoneum. Additionally, within the pelvis a hyperdense collection measuring up to 10.1 x 6.6 cm oblique transverse and AP dimension (4; 624, 57 Hounsfield units) is present. Trace pneumoperitoneum is expected postoperative finding. No retroperitoneal masses or adenopathy. Abdominal aorta is normal caliber with mild calcific athero sclerosis. Bowel loops reveal sequela of apparent partial sigmoid colonic resection, and apparent partial small-bowel resection. No abnormal bowel wall thickening or distention. CT pelvis: Urinary bladder reveals gas density (4; 664), likely related to recent catheterization although cystitis is a differential consideration. No pelvic masses or adenopathy. Osseous structures reveal no destructive osseous lesions. Impression: 1. Recent postop changes described above with multifocal hemoperitoneum. This document has been electronically signed by: Ceasar Farmer MD on 09/05/2025 18:03:12
--- NOTE | 2025-09-01 14:30 | PM.HPGS ---
History of Present Illness History of Present Illness Date of Service: 09/01/25 Chief complaint: diverticulitis Narrative: Alejandro Correa is a 64 year old male with PMH significant for antiphospholipid syndrome on Coumadin, hypertension with a recent admission to [facility] on 08/10/25-08/18/25 for perforated diverticulitis managed nonoperatively with IV abx. He subsequently developed a SBO as he had a loop of small bowel that appeared to be tethered to the area of diverticulitis. He required an NGT for decompression and bowel rest and PPN and this eventually resolved. His coumadin was held during this time for possible surgical intervention and he was bridged with heparin drip. He however had a significant drop in his platelets during this time and the heparin was stopped with concern for HIT. They decided to resume his coumadin alone to bring INR up, given plat still low. His diverticulitis improved with supportive measures and he was discharged on a course of Augmentin with follow up in the general surgery office. He was seen in the office on 08/28/25 and he reported intermittent fevers with highest of 101 a few days following discharge. He had doxycycline at home from previous treatment of his pyoderma gangrenosum of his left leg which he began taking and his fevers began to improve. His augmentin was also extended. He now reports his temp is 99 and he takes it multiple times throughout the day. He reports loose stools every few hours throughout the day. He has some occasional nausea and his appetite is diminished. He also reports continued LLQ and suprapubic pain. He still needs to take oxycodone which he tries to limit to just nighttime as he is not sleeping well. He had been taking tylenol 1000mg q6h but decreased his dosing. He was found to have an INR of 5.5. at his coumadin clinic at [facility] and his coumadin was adjusted with improvement. Upon his last lab work, his WBC count was improved to 14 and platelets were up to 129. Symptoms were presumed secondary to the diverticulitis. Due to severity of symptoms, it was recommended to proceed with hand assisted laparoscopic sigmoid resection, possible ostomy on a more urgent basis. He has been scheduled for 09/04/25. He is coumadin therapy and this will need to be held. Due to his recent admission with thrombocytopenia on heparin and concern for HIT, he will need close monitoring and frequent labs while his coumadin is held in preparation for surgery and is bridged with Argatroban and he is now being admitted to facilitate this. He reports continued symptoms with no significant improvement in his pain, nausea or loose stools. He just had his PICC line placed in his right arm. He states he has not taken any of his medication today including his coumadin. Review of Systems Review of Systems: Yes all other systems are reviewed and are negative PMFSH Past Medical History Medical History (Updated 08/28/25 @ 13:17 by Trish Bolden PA-C) Antiphospholipid syndrome (Unknown) Pyoderma gangrenosum Surgical History Surgical History (Updated 08/28/25 @ 12:36 by Trish Bolden PA-C) H/O right inguinal hernia repair Social History Social History Household Members: Spouse Housing: House Do you presently have visiting nurse or other home services: No Patient Tobacco Use Status: Never used Tobacco Advance Directives: Yes Advance Directives on File: Yes Advance Directives Date on File: 08/19/25 service: No Meds Allergies Allergy/AdvReac Type Severity Reaction Status Date / Time heparin Allergy Severe heparin Verified 08/28/25 10:15 induced thrombocytopenia bacitracin Allergy Unknown Verified 08/28/25 10:15 celecoxib (From Celebrex) Allergy Unknown Verified 08/28/25 10:15 cephalexin (From Keflex) Allergy Unknown Verified 08/28/25 10:15 sulfacetamide (From Allergy Unknown Verified 08/28/25 10:15 Sulfamide) sulfamethoxazole (From Allergy Unknown Verified 08/28/25 10:15 Bactrim) trimethoprim (From Bactrim) Allergy Unknown Verified 08/28/25 10:15 Home Medications ?Medication ?Instructions ?Recorded ?Confirmed ?Last Taken ?Type Tumeric 500 mg PO DAILY 08/10/25 08/10/25 Unknown History albuterol sulfate 90 mcg/actuation 2 inh inhalation Q6H PRN Shortness 08/10/25 08/10/25 Unknown History breath activated powder inhaler Of Breath Or Wheezing cetirizine 10 mg tablet 10 mg PO DAILY 08/10/25 08/10/25 Unknown History cholecalciferol (vitamin D3) 25 100 mcg PO DAILY 08/10/25 08/10/25 Unknown History mcg (1,000 unit) chewable tablet (Vitamin D3) clobetasol 0.05 % topical cream 1 g topical DAILY 08/10/25 08/10/25 Unknown History fluticasone propionate 50 1 spray intranasal DAILY PRN 08/10/25 08/10/25 Unknown History mcg/actuation nasal Allergy Symptoms spray,suspension furosemide 40 mg tablet 40 mg PO DAILY 08/10/25 08/10/25 Unknown History losartan 100 mg tablet 100 mg PO DAILY 08/10/25 08/10/25 Unknown History omeprazole 20 mg capsule,delayed 20 mg PO SUTUTHSA@0630 08/10/25 08/10/25 Unknown History release trazodone 50 mg tablet 50 mg PO DAILY PRN Insomnia 08/10/25 08/10/25 Unknown History warfarin 5 mg tablet 5 mg PO SUTUTHSA 08/10/25 08/10/25 Unknown History warfarin 5 mg tablet 10 mg PO MOWEFR 08/10/25 08/10/25 Unknown History Physical Exam Const: General: comfortable, no acute distress and alert; No ill appearing Orientation/consciousness: patient oriented x3 Eyes: Sclerae: sclerae normal Resp: Effort & Inspection: normal respiratory effort, able to speak in complete sentences and not tachypneic GI: Other: protuberant abdomen soft tender in the left mid abdomen/LLQ Inspection: Yes distended (mild) Palpation (GI): no guarding Skin: General skin exam: no rashes or lesions noted and no jaundice Neuro: General: patient oriented x3 and moves all extremities Assessment and Plan (1) Diverticulitis of large intestine with complication: Status: Acute Plan 64 year old male with PMH significant for antiphospholipid syndrome on Coumadin, hypertension, recent admission for diverticulitis with perforation during which he developed severe thrombocytopenia on heparin therapy. He has had continued severe symptoms secondary to the diverticulitis and therefore more urgent surgical intervention with BOB sigmoid resection, possible ostomy was recommended and planned for 09/04/25. A PICC line has been placed. Due to his thrombocytopenia on heparin and concern for HIT, he has been admitted for close monitoring and frequent labs while his coumadin is held in preparation for surgery and he is bridged. Will consult hematology and hospitalist service to facilitate this. Continue regular diet for now. Will order C diff PCR given his loose stools. Will begin clear liquids and bowel prep on with preoperative antibiotics. All questions answered. Quality Stroke Does the patient have a stroke diagnosis?: No VTE Prior VTE?: No VTE Risk Level:: Surgical - high VTE Device Contraindication: N/A - Device Ordered VTE Drug Contraindication: N/A - Med Ordered Procedures Date of Service Date of Service: 09/01/25
[2025-09-01 14:50] VITALS: BMI 33.9
[2025-09-01 15:03] VITALS: BP 135/84; PULSE 83; RESP 16; TEMP 36.7; O2SAT 98
--- NOTE | 2025-09-01 15:11 | PHA.MEDREC ---
Pharmacy Consult ? Medication Reconciliation Pharmacy has completed the medication reconciliation. Utilized discharge packet from 08/18/25
--- NOTE | 2025-09-01 15:13 | P.CNHO_ITS ---
Subjective - Subjective Chief complaint: Consult for: Phospholipid antibody syndrome. Patient: known to practice within the last 3 years Consult date: 09/01/25 Requesting Physician: Tahmina Rolon. Primary Care Provider: Jeremías Knox MD Family Provider: Jeremías Knox MD Medical Summary: DIAGNOSIS: Antiphospholipid antibody syndrome. Airplane Cover Maker Utilized?: No - Icelandic Speaking HPI - Consult Narrative Reason for consult: Consult for: Antiphospholipid antibody syndrome. Narrative: Alejandro Correa is a 64 year old gentleman with PMH significant for antiphospholipid syndrome on Coumadin, hypertension. He was recently admitted to [facility] on 08/10/25-08/18/25 for perforated diverticulitis managed nonoperatively with IV abx. He subsequently developed a SBO as he had a loop of small bowel that appeared to be tethered to the area of diverticulitis. He required an NGT for decompression and bowel rest and PPN and this eventually resolved. His coumadin was held during this time for possible surgical intervention and he was bridged with heparin drip. He however had a significant drop in his platelets during this time and the heparin was stopped with concern for HIT. They decided to resume his coumadin alone to bring INR up, given plat still low. His diverticulitis improved with supportive measures and he was discharged on a course of Augmentin. He was seen in the office on 08/28/25, by Gosia. At this time he reported intermittent fevers with highest of 101 a few days following discharge. He had doxycycline at home from previous treatment of his pyoderma gangrenosum of his left leg which he started taking. His fevers began to improve. His augmentin was also extended. He now reports his temp is 99 and he takes it multiple times throughout the day. He reports loose stools every few hours throughout the day. He has some occasional nausea and his appetite is diminished. He also reports continued LLQ and suprapubic pain. He still needs to take oxycodone which he tries to limit to just nighttime as he is not sleeping well. He had been taking tylenol 1000mg q6h but decreased his dosing. He was found to have an INR of 5.5. at his coumadin clinic at [facility] and his coumadin was adjusted with improvement. On his last lab work, his WBC count was improved to 14 and platelets were up to 129. His symptoms were presumed secondary to the diverticulitis. Due to severity of symptoms, it was recommended to proceed with hand assisted laparoscopic sigmoid resection, possible ostomy on a more urgent basis. He has been scheduled for 09/04/25. He is coumadin therapy and this will need to be held. Due to his recent admission with thrombocytopenia on heparin and concern for HI. He will need close monitoring and frequent labs while his coumadin is held in preparation for surgery and is bridged with Argatroban and he is now being admitted to facilitate this. He reports continued symptoms with no significant improvement in his pain, nausea or loose stools. He just had his PICC line placed in his right arm. He states he has not taken any of his medication today including his coumadin. Medical History:) Antiphospholipid syndrome. Pyoderma gangrenosum Social History: Living Situation History: Household Members: Spouse Housing: House Do you presently have visiting nurse or other home services: No Alcohol History Details: 1. How often do you have a drink containing alcohol?: b. Monthly or less 2. How many drinks containing alcohol do you have on a typical day when you are drinking?: a. 1 or 2 Review of Systems - Constitutional Reports system reviewed and no additional complaints, except as documented, Reports lack of energy, Reports malaise, Reports weight loss - Eyes Reports system reviewed and no additional complaints, except as documented - ENT Reports system reviewed and no additional complaints, except as documented - Cardiovascular Reports system reviewed and no additional complaints, except as documented - Respiratory Reports no additional respiratory complaints - Gastrointestinal Reports system reviewed and no additional complaints, except as documented - Genitourinary Genitourinary: Reports no additional male genitourinary complaints - Musculoskeletal Reports system reviewed and no additional complaints, except as documented - Integumentary/Breasts Skin/Breast: Reports no additional skin complaints - Neurologic Reports system reviewed and no additional complaints, except as documented - Psychiatric Reports system reviewed and no additional complaints, except as documented - Endocrine Reports no additional endocrine complaints - Hematologic/Lymphatic Reports system reviewed and no additional complaints, except as documented - Allergic/Immunologic Reports system reviewed and no additional complaints, except as documented Oncology Screenings - ECOG Performance Status ECOG Performance Status: 2 [facility] Medical History: Medical History (Last Updated 08/15/25 @ 17:25 by David Perez MD) Antiphospholipid syndrome Onset Date: Unknown Pyoderma gangrenosum Functional capacity: wheelchair bound Patient : No Surgical History: Surgical History (Last Updated 08/28/25 @ 12:36 by Trish Bolden PA-C) H/O right inguinal hernia repair Social History: Social History Living Situation History: Household Members: Spouse Housing: House Do you presently have visiting nurse or other home services: No Tobacco History: Patient Tobacco Use Status: Never used Tobacco Advance Directives: Advance Directives Date on File: 08/19/25 Occupation Assessmet: service: No Home Medications and Allergies Current Medications: Current Medications Acetaminophen (Acetaminophen 325 Mg Tablet) 650 mg PO Q6H PRN PRN Reason: Pain, Mild 1-3,fever,headache Al Hydroxide/Mg Hydroxide (Magnesium Hydrox/Alum Hydrox 30 Ml Oral.Susp) 30 ml PO Q4H PRN PRN Reason: Heartburn Calcium Carbonate (Calcium Carbonate 750 Mg Tab.Chew) 750 mg PO Q4H PRN PRN Reason: Heartburn Hydromorphone HCl (Hydromorphone Hcl 1 Mg/Ml Syringe) 0.5 mg IVPUSH Q4H PRN; Protocol PRN Reason: Pain, Severe (Pain Scale 7-10) Magnesium Hydroxide (Milk Of Magnesia 30 Ml Oral.Susp) 30 ml PO DAILY PRN PRN Reason: Constipation Melatonin (Melatonin 3 Mg Tablet) 6 mg PO BEDTIME PRN PRN Reason: Insomnia Ondansetron HCl (Ondansetron Hcl 4 Mg/2 Ml Vial) 4 mg IVPUSH Q8H PRN PRN Reason: Nausea and Vomiting Oxycodone HCl (Oxycodone Hcl Immed Release 5 Mg Tablet) 5 mg PO Q6H PRN PRN Reason: Pain, Moderate(Pain Scale 4-6) Sodium Chloride (0.9 % Sodium Chloride Flush 3 Ml Syringe) 3 [facility] Medications ?Medication ?Instructions ?Recorded ?Confirmed ?Type Tumeric 500 mg PO DAILY 08/10/25 09/01/25 Histor y albuterol sulfate 90 mcg/actuation 2 inh inhalation Q6H PRN Shortness 08/1009/01/25 History breath activated powder inhaler Of Breath Or Wheezing cetirizine 10 mg tablet 10 mg PO DAILY 08/10/25 09/01/25 History cholecalciferol (vitamin D3) 25 100 mcg PO DAILY 08/10/25 09/01/25 Histo ry mcg (1,000 unit) chewable tablet (Vitamin D3) clobetasol 0.05 % topical cream 1 g topical DAILY 08/10/25 09/01/25 Hist ory fluticasone propionate 50 1 spray intranasal DAILY PRN 08/10/25 History mcg/actuation nasal Allergy Symptoms spray,suspension furosemide 40 mg tablet 40 mg PO DAILY 08/10/25 09/01/25 History losartan 100 mg tablet 100 mg PO DAILY 08/10/25 09/01/25 Histor y omeprazole 20 mg capsule,delayed 20 mg PO SUTUTHSA@0630 08/10/25 09/01/25 History release trazodone 50 mg tablet 50 mg PO DAILY PRN Insomnia 08/10/2502/20 History warfarin 5 mg tablet 5 mg PO SUTUTHSA 08/10/25 09/01/25 Histo ry warfarin 5 mg tablet 10 mg PO MOWEFR 08/10/25 09/01/25 Histor y Allergies Allergy/AdvReac Type Severity Reaction Status Date / Time heparin Allergy Severe heparin Verified 08/28/25 10:15 induced thrombocytopenia bacitracin Allergy Unknown Verified 08/28/25 10:15 celecoxib (From Celebrex) Allergy Unknown Verified 08/28/25 10:15 cephalexin (From Keflex) Allergy Unknown Verified 08/28/25 10:15 sulfacetamide (From Allergy Unknown Verified 08/28/25 10:15 Sulfamide) sulfamethoxazole (From Allergy Unknown Verified 08/28/25 10:15 Bactrim) trimethoprim (From Bactrim) Allergy Unknown Verified 08/28/25 10:15 Physical Exam Vital signs: Vital Signs Temp 98.0 F 09/01/25 15:03 Pulse 83 09/01/25 15:03 Resp 16 09/01/25 15:03 BP 135/84 09/01/25 15:03 Pulse Ox 98 09/01/25 15:03 O2 Del Method Room Air 09/01/25 15:03 - Constitutional Present: mild distress - Routine HEENT Exam Head: Present: normal inspection, normocephalic Eye: Present: normal appearance ENT: Present: mucous membranes moist - Routine Neck Exam Present: supple Hem/Onc Consult Result - Labs CBC & Chem 7: 09/06/25 07:37 09/06/25 07:37 Assessment and Plan Patient Active problem list reviewed?: Yes (1) Anti-phospholipid antibody syndrome Status: Acute Assessment and plan: This is a 64-year-old gentleman, who was recently admitted to [facility] on 08/10/25- 08/18/25 for perforated diverticulitis managed nonoperatively with IV abx. He subsequently developed a SBO as he had a loop of small bowel that appeared to be tethered to the area of diverticulitis. He required an NGT for decompression and bowel rest and PPN and this eventually resolved. His coumadin was held during this time for possible surgical intervention and he was bridged with heparin drip. He however had a significant drop in his platelets during this time and the heparin was stopped with concern for HIT. They decided to resume his coumadin alone to bring INR up, given plat still low. His diverticulitis improved with supportive measures and he was discharged on a course of Augmentin. He was admitted for small bowel obstruction, perforated diverticulitis who was noted to have acute worsening of chronic thrombocytopenia. On his previous admission to the hospital his platelets were 60 K and gradually they have declined to 41 K. The decline in platelet count is not consistent with heparin induced thrombocytopenia or HIT. He scores zero points on the 4 T-score, therefore low risk. Decline in platelets was more likely related to underlying infection and use of antibiotics. His past medical history significant for triple positive antiphospholipid antibody syndrome. He was diagnosed with left lower extremity DVT nearly 20 years ago. He has been on warfarin ever since and managed by die technician at [facility]. He has never had a recurrence of DVT. Although he was not aware of thrombocytopenia in the past, he did show me his labs on his portal from [facility] from a year ago. At that time, his platelets have ranged from 70-100 K. Patient was restarted on warfarin. He has had recent symptoms secondary to the diverticulitis. Due to severity of symptoms, it has been recommended to proceed with hand assisted laparoscopic sigmoid resection, possible ostomy on an urgent basis. He has been scheduled for 09/04/25. He is coumadin therapy which will need to be held. Due to his recent admission with thrombocytopenia on heparin and concern for HIT. PLAN: He will be bridged with Argatroban. He will need close monitoring and frequent labs in preparation for surgery. I discussed his case with Dr. Doty, his die technician from [facility] as well. Thanks for the consult, CC: Jeremías Knox MD. - Time Spent With Patient Time Spent with Patient (in minutes): 30
[2025-09-01 15:15] LABS: MANUAL DIFF FLAG NO
[2025-09-01 15:25] LABS: Hematocrit 40.7 % (42.0-52.0); Hemoglobin 13.5 g/dl (14.0-18.0); INTERNATIONAL NORM RATIO 3.3 (0.9-1.1); Imm Gran Abs Auto 0.14 X10*3/uL (0.00-0.03); Imm Gran Pct Auto 1.2 % (0.0-0.4); Lymphocytes Absolute Auto 1.7 X10*3/uL (1.2-4.9); Mean Corpuscular HGB Conc 33.2 g/dl (31.0-36.0); Mean Corpuscular Hemoglobin 29.2 pg (27.0-33.0); Mean Corpuscular Volume 88.1 fL (80.0-98.0); NRBC Abs Auto 0.000 X10*3/uL (0.0-0.012); NRBC Pct Auto 0.0 /100WBC (0.0-0.2); Platelet Count 121 X10*3/uL (160-400); Prothrombin Time 38.2 SEC (10.9-12.4); Red Blood Count 4.62 X10*6/uL (4.60-5.80); White Blood Count 11.7 X10*3/uL (4.8-10.8)
[2025-09-01 15:32] LABS: Anion Gap 13 (12-20); Blood Urea Nitrogen 26 mg/dL (9-16); Calcium 9.1 mg/dL (8.4-10.2); Carbon Dioxide 22 mmol/L (22-29); Chloride 104 mmol/L (96-108); Estimated Glomerular Filt Rate 51; Potassium 4.9 mmol/L (3.3-5.1); Sodium 134 mmol/L (135-145)
--- OUTSIDE RECORDS SUMMARY | 2025-09-01 15:36 | XMS_ITS | Encounter Summary ---
Author Organization [facility] Address [address] [place] [phone] Phone Care Team Providers Care Pressure Welder Name Role Phone Jeremías Knox MD Primary Care Provid er Jeremías Knox MD Primary Care Provid er Angel Doty [facility] Unavailable [phone] Reason for Referral * Consultation (Elective) - Closed Specialty Diagnoses / Procedures Referred By Contac t Referred To Contact Diagnoses Deep vein thrombosis (DVT) of non-extremity vein, unspecified chronicity Jeremías Knox MD Phone: tel: fax: [facility] [address] [place] [address] Phone: tel: Referral ID Status Reason Start Date Expiration Date Visits Re quested Visits Authorized [id number] Closed 04/29/2021 04/29/2022 1 1 Encounter Details Date Type Department Care Team (Latest Contact Info) Description 04/29/2021 Transcribe Orders Virtual Department [address] [place] [address] Jeremías Knox MD [address] [place] [phone] Deep vein thrombosis (DVT) of non-extremity [...] Associated Diagnoses Order Schedule Ambulatory referral to [facility] Outpatient Referral Routine Deep vein thrombosis (DVT) of non-extremity vein, unspecified chronicity Ordered: 04/29/2021 documented as of this encounter Visit Diagnoses Diagnosis Deep vein thrombosis (DVT) of non-extremity vein, unspecified chronicity- Primary documented in this encounter Care Teams Pressure Welder Relationship Specialty Start Date End Date Jeremías Knox MD [address] [place] [phone] PCP - General Pediatrics 08/29/17 05/08/22 Jeremías Knox MD [address] [place] [phone] PCP - General Pediatrics 05/09/22 Angel Doty MBBS [address] [place] [phone] [email or web address] Medical Oncology 02/27/24 documented as of this encounter Additional Source Comments The information contained in this document represents components of the legal health record. It is not the complete legal health record.[facility]
--- OUTSIDE RECORDS SUMMARY | 2025-09-01 15:36 | XMS_ITS | Encounter Summary ---
Author Organization [facility] Address [address] [facility] [address] [place] [address] Phone Care Team Providers Care Director Of Retail Name Role Phone Jeremías Knox MD Primary Care Provid er Angel Doty MBBS Unavailable [phone] Reason for Visit * Reason Onset Date Comments Interruption In Anticoagulant Therapy 08/28/2025 Encounter Details Date Type Department Care Team (Late st Contact Info) Description 08/28/2025 Telephone Anticoagulation Clinic [address] [place] [address] Kaylene Gutierres, RN [address] [place] [address] [email or web address] Interruption In Anticoagulant Therapy Social History Tobacco Use Types Packs/Day Years [...] as of this encounter Progress Notes * Phyllis Kearns CNP - 08/28/2025 1:24 PM EDT Received return call from Dr Razo, spoke to him regarding Alejandor Correa upcoming surgery that requires warfarin hold and ultimately would require bridging with lovenox in setting of recent admission to hospital with reported dx of [place] advised that hematology should be consulted and interruption with bridge plan should be delineated by hematology given the degree of risk if be done as anoutpatient. We discussed case in depth and patient risk factors with mutual decision that patient will be admitted pre-op for hematology consultation and appropriate bridging strategy. Phyllis Kearns CNP * Phyllis Kearns CNP - 08/28/2025 12:05 PM EDT Return call to [facility] to review upcoming planned Colectomy on 09/04/2025 requiring a 5 daywarfarin hold. I spoke with Zoltan and we discussed that Alejandro Correa was admitted last week at [facility] diagnosed with perforated diverticulitis which is the indication for urgent colectomy with Dr Razo. I discussed my concern on the safety of bridging patient as outpatientgive history of triple positive APLAS and recent dx of [place] during last weeks admission, however records are not available for my review in epic. Advocated that if plan is to proceed with outpatient workup there need to be close hematology involvement and clear plan among all teams on frequent monit oring with clear markers of when patient requires emergent medical evaluation. I reviewed this is ahigh risk case with potential of complications. Zoltan plans to give my contact information to Dr Razo for further discussion and planning. * Kaylene Gutierres RN - 08/28/2025 11:29 AM EDT Phone call from [facility] ([phone]). Rusty is scheduled for colectomy 09/04/25, off warfarin x 5 days. Rusty had [place] this last admission (08/22/25) at [facility]. Chart routed to [facility] nurse practitioners for review. documented in this encounter Plan of Treatment [...] state documented in this encounter Care Teams Director Of Retail Relationship Specialty Start Date End Date Jeremías Knox MD [address] [place] [address] [phone] PCP - General Pediatrics 05/09/22 Angel Doty MBBS [address] [place] [address] [phone] [email or web address] Medical Oncology 02/27/24 documented as of this encounter Additional Source Comments The information contained in this document represents components of the legal health record. It is not the complete legal health record.[facility]
--- OUTSIDE RECORDS SUMMARY | 2025-09-01 15:36 | XMS_ITS | Encounter Summary ---
Author Organization [facility] Address [address] [facility] [address] [place] [address] Phone Care Team Providers Care Quarry Supervisor Dimension Stone Name Role Phone Jeremías Knox MD Primary Care Provid er Jeremías Knox MD Primary Care Provid er Angel Doty MBBS Unavailable [phone] Encounter Details Date Type Department Care Team (Late st Contact Info) Description 03/02/2022 Procedure Pass [facility] Endoscopy Admitting Dept Virtual Department [address] [place] [address] Social History Tobacco Use Types Packs/Day Years [...] on filedocumented in this encounter Care Teams Quarry Supervisor Dimension Stone Relationship Specialty Start Date End Date Jeremías Knox MD [address] [facility] [address] [place] [address] PCP - General Pediatrics 08/29/17 05/08/22 Jeremías Knox MD [address] [phone] PCP - General Pediatrics 05/09/22 Angel Doty MBBS [address] [phone] [email or web address] Medical Oncology 02/27/24 documented as of this encounter Additional Source Comments The information contained in this document represents components of the legal health record. It is not the complete legal health record.[facility]
--- OUTSIDE RECORDS SUMMARY | 2025-09-01 15:36 | XMS_ITS | Encounter Summary ---
Author Organization [facility] Address [address] [facility] [address] [place] [address] Phone Care Team Providers Care Painter Shipyard Name Role Phone Jeremías Knox MD Primary Care Provid er Jeremías Knox MD Primary Care Provid er Angel Doty MBBS Unavailable [phone] Encounter Details Date Type Department Care Team (Late st Contact Info) Description 12/29/2021 Procedure Pass [facility], Ct Scan - [address] [address] Social History Tobacco Use Types Packs/Day Years [...] on filedocumented in this encounter Care Teams Painter Shipyard Relationship Specialty Start Date End Date Jeremías Knox MD 35 [facility] [address] [place] [address] PCP - General Pediatrics 08/29/17 05/08/22 Jeremías Knox MD [address] [place] [address] [phone] PCP - General Pediatrics 05/09/22 Angel Doty MBBS [address] [place] [phone] [email or web address] Medical Oncology 02/27/24 documented as of this encounter Additional Source Comments The information contained in this document represents components of the legal health record. It is not the complete legal health record.[facility]
--- OUTSIDE RECORDS SUMMARY | 2025-09-01 15:36 | XMS_ITS | Encounter Summary ---
Author Organization [facility] Address [address] [facility] [address] [place] [address] Phone Care Team Providers Care Client Technologies Specialist Name Role Phone Jeremías Knox MD Primary Care Provid er Jeremías Knox MD Primary Care Provid er Angel Doty MBBS Unavailable [phone] Reason for Referral * MRI/CAT Scan - Closed Specialty Diagnoses / Procedures Referred By Contac t Referred To Contact Radiology Diagnoses Benign neoplasm of cerebral meninges Procedures MRI Brain CHG MRI BRAIN CHG MRI BRAIN COMBO Jeremías Knox MD Phone: tel: fax: Referral ID Status Reason Start Date Expiration Date Visits Re quested Visits Authorized [id number] Closed 05/03/2022 07/02/2022 1 1 Encounter Details Date Type Department Care Team (Latest Contact Info) Description 05/03/2022 Transcribe Orders Virtual Department 30 [place] [address] Jeremías Knox MD [address] [phone] Benign neoplasm of cerebral meninges [...] meninges documented in this encounter Care Teams Client Technologies Specialist Relationship Specialty Start Date End Date Jeremías Knox MD [address] [phone] PCP - General Pediatrics 08/29/17 05/08/22 Jeremías Knox MD [address] [phone] PCP - General Pediatrics 05/09/22 Angel Doty MBBS [address] [place] [phone] [email or web address] Medical Oncology 02/27/24 documented as of this encounter Additional Source Comments The information contained in this document represents components of the legal health record. It is not the complete legal health record.[facility]
--- OUTSIDE RECORDS SUMMARY | 2025-09-01 15:36 | XMS_ITS | Patient Health Record ---
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 Problem Hypercoagulable state (91458671) Hypercoagulable state (D68.59) Active confirmed Problem Hypertension (20733789) Hypertension (I10) Active confirmed Problem Hyperlipidemia (94397813) Hyperlipidemia (E78.5) Active confirmed Problem Obesity (619722490) Obesity (E66.9) Active confirmed Problem Asthma (959686485) Asthma (J45.909) Active conf irmed Problem Allergic rhinitis (43778424) Allergic rhinitis (J30.9) Active confirmed Vital Signs Heart Rate 53 /min 08/05/2025 Temperature 98.3 degrees Fahrenheit 08/05/2025 Respiratory Rate 16 /min 08/05/2025 Height-cm 170.18 cm 08/05/2025 Oximetry 98 % 08/05/2025 Blood pressure diastolic 78 mm Hg 08/05/2025 Weight-kg 110.22 kg 08/05/2025 Height 67 in 08/05/2025 Blood pressure systolic 145 mm Hg 08/05/2025 Weight 243 lbs 08/05/2025 BMI 38.06 kg/m2 08/05/2025 Encounters Encounter Location Date Provider Diagnosis [facility] [address] [place] [address] 07/22/2025 Cefreino Waien 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 L97.825 ; Multiple open wounds of left lower leg S81.802A ; Allergic rhinitis J30.9 ; Benign neoplasm of cerebral meninges D32.0 ; Hypercoagulable state D68.59 ; Hypertension I10 ; Hyperlipidemia E78.5 ; Obesity E66.9 and Asthma J45.909 [facility] [address] [place] [address] 07/29/2025 Ceferino Layton 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 L97.825 ; Multiple open wounds of left lower leg S81.802A ; Allergic rhinitis J30.9 ; Benign neoplasm of cerebral meninges D32.0 ; Hypercoagulable state D68.59 ; Hypertension I10 ; Hyperlipidemia E78.5 ; Obesity E66.9 and Asthma J45.909 [facility] [address] [phone] 08/05/2025 Ceferino Layton 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 L97.825 ; Multiple open wounds of left lower leg S81.802A ; Allergic rhinitis J30.9 ; Benign neoplasm of cerebral meninges D32.0 ; Hypercoagulable state D68.59 ; Hypertension I10 ; Hyperlipidemia E78.5 ; Obesity E66.9 and Asthma J45.909 [facility] [address] [phone] 07/29/2025 Ceferino Layton [facility] [address] [phone] 07/20/2025 Ceferino Layton Assessments Encounter Date Diagnosis [...] Insured Coverage Start Date Coverage End Date [facility] [address] [place], [place] [id number] NataliegustavoAlejandro Self - patient is [...]
--- OUTSIDE RECORDS SUMMARY | 2025-09-01 15:36 | XMS_ITS | Encounter Summary ---
Author Organization [facility] Address [address] [facility] [address] [place] [address] Phone Care Team Providers Care Glass Loading Equipment Tender Name Role Phone Jeremías Knox MD Primary Care Provid er Jeremías Knox MD Primary Care Provid er Angel Doty MBBS Unavailable [phone] Encounter Details Date Type Department Care Team (Late st Contact Info) Description 05/03/2022 Procedure Pass [facility], [address] [address] Social History Tobacco Use Types Packs/Day Years [...] on filedocumented in this encounter Care Teams Glass Loading Equipment Tender Relationship Specialty Start Date End Date Jeremías Knox MD 35 [facility] 1 [place] [address] PCP - General Pediatrics 08/29/17 05/08/22 Jeremías Knox MD [address] [phone] PCP - General Pediatrics 05/09/22 Angel Doty MBBS [address] [phone] [email or web address] Medical Oncology 02/27/24 documented as of this encounter Additional Source Comments The information contained in this document represents components of the legal health record. It is not the complete legal health record.[facility]
--- OUTSIDE RECORDS SUMMARY | 2025-09-01 15:36 | XMS_ITS | Clinical Summary ---
Author Organization [facility] Address [address] [facility] [address] [place] [address] Phone Care Team Providers Care Conference Organizer Name Role Phone Jeremías Knox MD Primary Care Provid er Angel Doty MBBS Unavailable [phone] Allergies Active Allergy Reactions Criticality Noted Date [...] Encounters Date Type Department Care Team Description 08/28/2025 Telephone Anticoagulation Clinic [address] [place] [address] Kaylene Gutierres RN Interruption In Anticoagulant Therapy 08/28/2025 Documentation Anticoagulation Clinic [address] [place] [address] Kaylene Gutierres RN 08/27/2025 10:11 AM EDT - 08/27/2025 11:59 PM EDT Hospital Encounter [facility] Phleb Main [address] [place] [address] Gallito Razo MD Discharge Disposition: Home or Self Care 08/27/2025 Documentation Anticoagulation Clinic [address] [place] [address] Kaylene Gutierres RN INR Check 08/27/2025 Transcribe Orders [facility] Phleb Main [address] [place] [address] Gallito Razo MD Perforated diverticulum of large intestine (Primary Dx) 08/25/2025 Documentation Anticoagulation Clinic [address] [place] [address] Kaylene Gutierres RN 08/25/2025 Transcribe Orders [facility] Specimen Processing [address] [place] [address] Gallito Razo MD Diverticulitis of large intestine with perforation and abscess without bleeding (Primary Dx) 08/24/2025 2:47 PM EDT - 08/24/2025 11:59 PM EDT Hospital Encounter [facility] Phleb Main [address] [place] [address] Gallito Razo MD Discharge Disposition: Home or Self Care 08/24/2025 Telephone Anticoagulation Clinic [address] [place] [address] Kaylene Gutierres, RN INR Check; Supratherapeutic INR Greater Or Equal To 5 08/20/2025 11:53 AM EDT - 08/20/2025 11:59 PM EDT Hospital Encounter [facility] Phleb Main [address] [place] [address] Jeremías Knox MD Discharge Disposition: Home or Self Care 08/20/2025 Telephone Anticoagulation Clinic [address] [place] [address] Kaylene Gutierres, RN INR Check (/) 08/18/2025 Documentation Anticoagulation Clinic [address] [place] [address] Kaylene Gutierres, RN 07/15/2025 9:25 AM EDT - 07/15/2025 11:59 PM EDT Hospital Encounter [facility] Phle[facility] Main [address] [place] [address] Jeremías Knox MD Discharge Disposition: Home or Self Care 07/15/2025 Documentation [facility] Anti Coag Clinic [address] [place] [address] [place] [address] Kaylene Gutierres, RN INR Check 07/13/2025 Documentation Anticoagulation Clinic [address] [place] [address] Kaylene Gutierres, RN 06/24/2025 Telephone [facility] Rheumatology [address] [place] [address] Roxana Gold MD, MPH Appointment 06/08/2025 8:43 AM EDT - 06/08/2025 11:59 PM EDT Hospital Encounter [facility] Phleb Main [address] [place] [address] Jeremías Knox MD Discharge Disposition: Home or Self Care 06/08/2025 Documentation Anticoagulation Clinic [address] [place] [address] Kaylene Gutierres, RN INR Check 06/05/2025 Documentation Anticoagulation Clinic [address] [place] [address] Kaylene Gutierres RN 06/05/2025 Documentation Anticoagulation Clinic [address] [place] [address] Kaylene Gutierres, RN from Last 3 Months [...] included. PT 24.0(H) 10.2 - 12.9 sec [facility] INR 1.9(H) 0.9 - 1.1 [facility] Comment:Therapeutic range fo r oral Vitamin K antagonists: 2.0-3.5 Blood 08/27/2025 10:3 7 AM EDT 08/27/2025 10:44 AM EDT us Jeremías Knox MD LAB BLOOD BKR ORDERA BLES Final Result [address] [address] * (ABNORMAL) CBC and differential (08/27/2025 10:37 AM EDT) Only the most recent of2 resultswithin the time period is included. WBC 14.65(H) 4.00 - 11.00 K/uL [facility] RBC 4.35(L) 4.50 - 5.90 M/uL [facility] HGB 12.9(L) 13.5 - 17.5 g/dL [facility] HCT 38.2(L) 41.0 - 53.0 % [facility] PLT 129(L) 150 - 450 K/uL [facility] MCV 87.8 80.0 - 100.0 fL [facility] MCH 29.7 27.0 - 31.0 pg [facility] MCHC 33.8 32.0 - 36.0 g/dL [facility] RDW 14.2 11.5 - 14.5 % [facility] MPV 8.6 8.4 - 12.0 fL [facility] NRBC 0.00 0.00 /100 WBCs [facility] ABSOLUTE NRBC 0.00 0.00 K/uL [facility] DIFF METHOD Manual [facility] TOTAL CELLS COUNTED 100 [facility] NEUTS 76.0 48.0 - 76.0 % [facility] BANDS 1.0 0 - 10 % [facility] LYMPHS 13.0(L) 18.0 - 41.0 % [facility] MONOS 6.0 4.0 - 11.0 % [facility] EOS 1.0 0.0 - 5.0 % [facility] BASOS 1.0 0.0 - 1.5 % [facility] MYELOS 1.0(H) 0 % [facility] METAS 1.0(H) 0 % [facility] ABSOLUTE NEUTS 11.28(H) 1.92 - 7.60 K/uL [facility] ABSOLUTE LYMPHS 1.90 0.72 - 4.10 K/uL [facility] ABSOLUTE MONOS 0.88 0.16 - 1.10 K/uL [facility] ABSOLUTE EOS 0.15 0.00 - 0.50 K/uL [facility] ABSOLUTE BASOS 0.15 0.00 - 0.15 K/uL [facility] ABSOLUTE MYELOS 0.15 K/uL [facility] ABSOLUTE METAS 0.15 K/uL [facility] Blood 08/27/2025 10:3 7 AM EDT 08/27/2025 10:44 AM EDT us Gallito Razo MD LAB BLOOD BKR ORDERABLES Mandy pham Result [address] [address] * (ABNORMAL) Basic metabolic panel (08/27/2025 10:37 AM EDT) SODIUM 129(L) 133 - 146 mmol/L [facility] CHLORIDE 97 96 - 108 mmol/L [facility] POTASSIUM 4.6 3.3 - 5.1 mmol/L [facility] CO2 21 21 - 35 mmol/L [facility] BUN 21(H) 6 - 19 mg/dL [facility] CREATININE 1.30 0.5 - 1.5 mg/dL [facility] GLUCOSE 92 70 - 99 mg/dL [facility] CALCIUM 9.0 8.4 - 10.3 mg/dL [facility] EGFR 62 >59 mL/min/1.7 3m2 [facility] Comment:Estimated glomerular filtration rate calculated using the CKD-EPI refit equation. ANION GAP 16 10 - 20 mmol/L [facility] Blood 08/27/2025 10:3 7 AM EDT 08/27/2025 10:44 AM EDT us Gallito Razo MD LAB BLOOD BKR ORDERABLES Mandy l Result Performing Organization Address City/[facility] Co de Phone Number [address] [address] * (ABNORMAL) Lipid panel (09/15/2024 7:36 AM EST) HDL 45 mg/dL [facility] Comment: Interpretation <40 mg/dL: Low HDL cholesterol (major risk factor for CHD) Greater than or equal to 60 mg/dL: High HDL cholesterol ( negative risk factor for CHD) HDL - cholesterol is affected by a number of factors, e.g. smoking, excerise, hormones, sex and age. CHOLESTEROL 252(H) 0 - 240 mg/dL [facility] TRIGLYCERIDES 260(H) 30 - 160 mg/dL [facility] LDL 155(H) 50 - 129 mg/dL [facility] Comment: LDL levels in terms of risk for coronary heart disease: <100 mg/dL: Optimal 100-129 mg/dL: Near or above optimal 130-159 mg/dL: Borderline high 160-189 mg/dL: High >190 mg/dL: Very High CARDIAC RISK RATIO 5.6(H) 3.4 - 5.0 C [facility] Blood 09/15/2024 7:36 AM EST 09/15/2024 7:40 AM EST us Jeremías Knox MD LAB BLOOD BKR ORDERA BLES Final Result Performing Organization Address [facility]/ZIP Co de Phone Number [address] [address] * ENDOSCOPY, COLON (03/02/2022 2:18 PM EDT) Narrative Transcriptions Kari Argueta MD - 03/02/2022 2:18 PM EDT Patient Name: Alejandro Correa Attending MD:: KARI ARGUETA MD Procedure Date: 03/02/2022 2:18 PM Date of : 1960 Age: 61 Admit Type: Outpatient Gender: Male Room: [facility] Referring MD: Mick Knox Exam Type: Colonoscopy [...] monitored continuously. The Olympus adult variable colonoscope [id number] #3 was introduced through the anus and [...] 2:18 PM Procedure Code(s): --- Professional --- 49010, Colonoscopy, flexible; with biopsy, single or multiple --- Technical --- 80482, Colonoscopy, flexible; with biopsy, single or multiple Diagnosis Code(s): --- Professional --- R19.7, Diarrhea, unspecified R63.4, Abnormal weight loss K57.30, Diverticulosis of large intestine without perforation or abscess without bleeding --- Technical --- R19.7, Diarrhea, unspecified R63.4, Abnormal weight loss K57.30, Diverticulosis of large intestine without perforation or abscess without bleeding CPT copyright 2020 [employer]. All rights reserved. The codes documented in this report are preliminary and upon weaver needle loom reviewmay be revised to meet current compliance requirements. Procedure Date: 03/02/2022 2:18:28 PM [address] [place] [address] us Mick Knox MD GI PROCEDURE ORDERAB LES Final Result from Last 3 Months or Most Recently Relevant to Health Maintenance Insurance Advance Directives For more information, please contact: [phone] (9AM - 5PM [facility], Sunday-Sunday) * Full Code (Latest Code Status on File) Date Activated Date Inactivated Comments 07/12/2023 7:52 PM Question Answer Comments Code Status Confirmed With: Patient Care Teams Conference Organizer Relationship Specialty Start Date End Date Jeremías Knox MD [address] [phone] PCP - General Pediatrics 05/09/22 Angel Doty MBBS [address] [place] [phone] [email or web address] Medical Oncology 02/27/24 Additional Source Comments The information contained in this document represents components of the legal health record. It is not the complete legal health record.[facility]
--- OUTSIDE RECORDS SUMMARY | 2025-09-01 15:36 | XMS_ITS | Encounter Summary ---
Author Organization [facility] Address [address] [facility] [address] [place] [address] Phone Care Team Providers Care Ginner Name Role Phone Jeremías Knox MD Primary Care Provid er Jeremías Knox MD Primary Care Provid er Angel Doty [facility] Unavailable [phone] Reason for Referral * MRI/CAT Scan - Closed Specialty Diagnoses / Procedures Referred By Emeka ramesh Referred To Contact Radiology Diagnoses Visual hallucinations Procedures CT Head CHG CT SCAN HEAD COMBO Alden Segundo DO Phone: tel: fax: [email or web address] Referral ID Status Reason Start Date Expiration Date Visits Re quested Visits Authorized [id number] Closed 12/29/2021 06/11/2022 1 1 Encounter Details Date Type Department Care Team (Latest Contact Info) Description 12/29/2021 Transcribe Orders Virtual Department [address] [place] [address] Alden Segundo DO [address] [place] [address] [email or web address] Visual hallucinations (Primary Dx) Social History [...] disturbances documented in this encounter Care Teams Ginner Relationship Specialty Start Date End Date Jeremías Knox MD [address] [place] [phone] PCP - General Pediatrics 08/29/17 05/08/22 Jeremías Knox MD [address] [place] [phone] PCP - General Pediatrics 05/09/22 Angel Doty MBBS [address] [place] [phone] [email or web address] Medical Oncology 02/27/24 documented as of this encounter Additional Source Comments The information contained in this document represents components of the legal health record. It is not the complete legal health record.[facility]
--- OUTSIDE RECORDS SUMMARY | 2025-09-01 15:36 | XMS_ITS | Encounter Summary ---
Author Organization [facility] Address [address] [facility] [address] [place] [address] Phone Care Team Providers Care Global Marketing Specialist Name Role Phone Jeremías Knox MD Primary Care Provid er Jeremías Knox MD Primary Care Provid er Angel Doty MB Unavailable [phone] Encounter Details Date Type Department Care Team (Latest Contact Info) Description 12/27/2017 Transcribe Orders [facility] Phleb Main 30 [place] [address] Jeremías Konx MD 35 [facility] 1 [place] [address] Essential hypertension, benign (Primary Dx) Social [...] EST) PSA 1.17 0 - 4.00 ng/mL [facility] Blood 12/27/2017 9:10 AM EST 12/27/2017 9:16 AM EST us Jeremías Knox MD LAB BLOOD BKR ORDERA BLES Final Result Performing Organization Address [facility] Co de Phone Number [address] [address] * (ABNORMAL) CBC (12/27/2017 9:05 AM EST) WBC 4.12 3.40 - 11.20 K/uL [facility] RBC 5.72(H) 4.50 - 5.50 M/uL [facility] HGB 18.0(H) 13.0 - 17.0 g/dL [facility] HCT 51.8(H) 40.0 - 51.0 % [facility] PLT 171 130 - 400 K/uL [facility] MCV 90.6 79.0 - 98.0 fL [facility] MCH 31.5 27.0 - 34.8 pg [facility] MCHC 34.7 31.5 - 36.0 g/dL [facility] RDW 12.6 10.8 - 14.6 % [facility] MPV 9.7 9.4 - 12.4 fl [facility] NRBC 0.00 /100 WBCs [facility] ABSOLUTE NRBC 0.00 K/uL [facility] Blood 12/27/2017 9:05 AM EST 12/27/2017 9:17 AM EST Jeremías Knox MD LAB BLOOD BKR ORDERA BLES Final Result Performing Organization Address City/[facility] Co de Phone Number [address] [address] * (ABNORMAL) Lipid panel (12/27/2017 9:05 AM EST) HDL 53 mg/dL [facility] Comment: Interpretation: Risk Level Males Decreased >45 mg/dL Average 40-45 mg/dL Increased <40 mg/dL CHOLESTEROL 287(H) 0 - 240 mg/dL [facility] TRIGLYCERIDES 165(H) 30 - 160 mg/dL [facility] LDL 201(H) 50 - 129 mg/dL [facility] Comment: LDL levels in terms of risk for coronary heart disease: <100 mg/dL: Optimal 100-129 mg/dL: Near or above optimal 130-159 mg/dL: Borderline high 160-189 mg/dL: High >190 mg/dL: Very High CARDIAC RISK RATIO 5.4(H) 3.4 - 5.0 C [facility] Blood 12/27/2017 9:05 AM EST 12/27/2017 9:17 AM EST Jeremías Knox MD LAB BLOOD BKR ORDERA BLES Final Result [address] [address] * (ABNORMAL) Basic metabolic panel (12/27/2017 9:05 AM EST) SODIUM 136 133 - 146 mmol/L [facility] CHLORIDE 96 96 - 108 mmol/L [facility] POTASSIUM 4.1 3.3 - 5.1 mmol/L [facility] CO2 28 21 - 35 mmol/L [facility] BUN 26(H) 6 - 19 mg/dL [facility] CREATININE 0.90 0.5 - 1.5 mg/dL [facility] GLUCOSE 93 70 - 99 mg/dL [facility] CALCIUM 9.6 8.4 - 10.3 mg/dL [facility] EGFR >60 >60 mL/min/1.7 3m2 [facility] Comment:Abnormal if <60. If patient is -Welsh, multiply the result by 1.21. ANION GAP 16 10 - 20 mmol/L [facility] Blood 12/27/2017 9:05 AM EST 12/27/2017 9:17 AM EST Jeremías Knox MD LAB BLOOD BKR ORDERA BLES Final Result [address] [address] documented in this encounter Visit Diagnoses Diagnosis Essential hypertension, benign- Primary documented in this encounter Additional Health Concerns Infection Onset Date Last Indicated Resolved Time CoV-Exposed Comment:Recent close contact 05/27/2020 05/27/2020 06/10/2020 1:27 AM EDT documented as of this encounter Care Teams Global Marketing Specialist Relationship Specialty Start Date End Date Jeremías Knox MD [address] [place] [phone] PCP - General Pediatrics 08/29/17 05/08/22 Jeremías Knox MD [address] [place] [phone] PCP - General Pediatrics 05/09/22 Angel Doty MBBS [address] [place] [phone] [email or web address] Medical Oncology 02/27/24 documented as of this encounter Additional Source Comments The information contained in this document represents components of the legal health record. It is not the complete legal health record.[facility]
--- OUTSIDE RECORDS SUMMARY | 2025-09-01 15:36 | XMS_ITS | Encounter Summary ---
Author Organization [facility] Address [address] [place] [address] Phone Care Team Providers Care Teletray Operator Name Role Phone Jeremías Knox MD Primary Care Provid er Angel Doty MBBS Unavailable [phone] Encounter Details Date Type Department Care Team (Late st Contact Info) Description 08/28/2025 Documentation Anticoagulation Clinic [address] [place] [address] Kaylene Gutierres RN 30 [place] [address] Social History Tobacco Use Types Packs/Day Years [...] Progress Notes * Kaylene Gutierres RN - 08/28/2025 11:24 AM EDT Opened in error documented in this encounter Plan of Treatment Not on file documented as of this encounter Visit Diagnoses Not on filedocumented in this encounter Care Teams Teletray Operator Relationship Specialty Start Date End Date Jeremías Knox MD [address] [place] [phone] PCP - General Pediatrics 05/09/22 Angel Doty MBBS [address] [place] [phone] [email or web address] Medical Oncology 02/27/24 documented as of this encounter Additional Source Comments The information contained in this document represents components of the legal health record. It is not the complete legal health record.[facility]
--- OUTSIDE RECORDS SUMMARY | 2025-09-01 15:36 | XMS_ITS | Encounter Summary ---
Author Organization [facility] Address [address] [facility] [address] [place] [address] Phone Care Team Providers Care Rv Repairer Name Role Phone Jeremías Knox MD Primary Care Provid er Jeremías Knox MD Primary Care Provid er Angel Doty [facility] Unavailable [phone] Reason for Referral * Consultation (Elective) - Closed Specialty Diagnoses / Procedures Referred By Contac t Referred To Contact Diagnoses Acute venous embolism and thrombosis of deep vessels of proximal lower extremity, unspecified laterality Jeremías Knox MD Phone: tel: fax: [facility] [address] [place] [address] Phone: tel: Referral ID Status Reason Start Date Expiration Date Visits Re quested Visits Authorized [id number] Closed 12/20/2017 12/20/2018 1 1 Encounter Details Date Type Department Care Team (Latest Contact Info) Description 12/20/2017 Transcribe Orders [facility] Department [address] [place] [address] Jeremías Knox MD [address] [place] [phone] Acute venous embolism and thrombosis of [...] Associated Diagnoses Order Schedule Ambulatory referral to [facility] Anticoagulation Clinic Outpatient Referral Routine Acute [...] documented as of this encounter Care Teams Rv Repairer Relationship Specialty Start Date End Date Jeremías Knox MD [address] [place] [phone] PCP - General Pediatrics 08/29/17 05/08/22 Jeremías Knox MD [address] [place] [phone] PCP - General Pediatrics 05/09/22 Angel Doty MBBS [address] [place] [phone] [email or web address] Medical Oncology 02/27/24 documented as of this encounter Additional Source Comments The information contained in this document represents components of the legal health record. It is not the complete legal health record.[facility]
--- OUTSIDE RECORDS SUMMARY | 2025-09-01 15:36 | XMS_ITS | Encounter Summary ---
Author Organization [facility] Address [address] [employer] [facility] [address] [place] [address] Phone Care Team Providers Care Human Resources Compliance Manager Name Role Phone Jeremías Knox MD Primary Care Provid er Angel Doty MBBS Unavailable [phone] Reason for Referral * MRI/CAT Scan - Closed Specialty Diagnoses / Procedures Referred By Contreji ramesh Referred To Contact Radiology Diagnoses Benign neoplasm of cerebral meninges Procedures MRI Brain CHG MRI BRAIN COMBO System, Provider Not In, [facility] [address] [address] Referral ID Status Reason Start Date Expiration Date Visits Re quested Visits Authorized [id number] Closed 08/20/2024 10/18/2024 1 1 Encounter Details Date Type Department Care Team (Late st Contact Info) Description 08/20/2024 Transcribe Orders Virtual Department 30 [place] [address] System, Provider Not In, [facility] [address] [address] Benign neoplasm of cerebral meninges (Primary Dx) [...] meninges documented in this encounter Care Teams Human Resources Compliance Manager Relationship Specialty Start Date End Date Jeremías Knox MD [address] [place] [phone] PCP - General Pediatrics 05/09/22 Angel Doty MBBS [address] [place] [phone] [email or web address] Medical Oncology 02/27/24 documented as of this encounter Additional Source Comments The information contained in this document represents components of the legal health record. It is not the complete legal health record.[facility]
--- OUTSIDE RECORDS SUMMARY | 2025-09-01 15:37 | XMS_ITS | Encounter Summary ---
Author Organization [facility] Address [address] [facility] [address] [place] [address] Phone Care Team Providers Care Retail Clerk Name Role Phone Jeremías Knox MD Primary Care Provid er Jeremías Knox MD Primary Care Provid er Angel Doty MB Unavailable [phone] Encounter Details Date Type Department Care Team (Latest Contact Info) Description 09/27/2017 Transcribe Orders [facility] Phleb Main 30 [place] [address] Jeremías Knox MD [address] [facility] [address] [place] [address] Deep phlebothrombosis, antepartum, with delivery [...] documented as of this encounter Care Teams Retail Clerk Relationship Specialty Start Date End Date Jeremías Knox MD [address] [place] [phone] PCP - General Pediatrics 08/29/17 05/08/22 Jeremías Knox MD [address] [place] [phone] PCP - General Pediatrics 05/09/22 Angel Doty MBBS [address] [place] [phone] [email or web address] Medical Oncology 02/27/24 documented as of this encounter Additional Source Comments The information contained in this document represents components of the legal health record. It is not the complete legal health record.[facility]
--- OUTSIDE RECORDS SUMMARY | 2025-09-01 15:37 | XMS_ITS | Encounter Summary ---
Author Organization [facility] Address [address] [employer] [facility] [address] [place] [address] Phone Care Team Providers Care Reporting Specialist Name Role Phone Jeremías Knox MD Primary Care Provid er Jeremías Knox MD Primary Care Provid er Angel Doty MB Unavailable [phone] Encounter Details Date Type Department Care Team (Latest Contact Info) Description 08/29/2017 Transcribe Orders [facility] Phleb Main [address] [place] [address] Jeremías Knox MD 35 [facility] [address] [place] [address] Deep phlebothrombosis, antepartum, with delivery [...] EDT) PT 21.9(H) 10.2 - 12.9 sec [facility] INR 1.9(H) 0.9 - 1.1 [facility] Comment:Therapeutic range fo r oral Vitamin K antagonists: 2.0-3.5 Blood 08/29/2017 10:5 8 AM EDT 08/29/2017 3:58 PM EDT us Jeremías Knox MD LAB BLOOD BKR ORDERA BLES Edited Result - Final [facility] 30 [place] [address] documented in this encounter Visit Diagnoses Diagnosis Deep phlebothrombosis, antepartum, with delivery- Primary documented in this encounter Additional Health Concerns Infection Onset Date Last Indicated Resolved Time CoV-Exposed Comment:Recent close contact 05/27/2020 05/27/2020 06/10/2020 1:27 AM EDT documented as of this encounter Care Teams Reporting Specialist Relationship Specialty Start Date End Date Jeremías Knox MD [address] [place] [phone] PCP - General Pediatrics 08/29/17 05/08/22 Jeremías Knox MD [address] [place] [phone] PCP - General Pediatrics 05/09/22 Angel Doty MBBS [address] [place] [phone] [email or web address] Medical Oncology 02/27/24 documented as of this encounter Additional Source Comments The information contained in this document represents components of the legal health record. It is not the complete legal health record.[facility]
--- OUTSIDE RECORDS SUMMARY | 2025-09-01 15:37 | XMS_ITS | Encounter Summary ---
Author Organization [facility] Address [address] [employer] [facility] [address] [place] [address] Phone Care Team Providers Care Telex Operator Name Role Phone Jeremías Knox MD Primary Care Provid er Angel Doty MBBS Unavailable [phone] Encounter Details Date Type Department Care Team (Late st Contact Info) Description 08/20/2024 Procedure Pass [facility], [address] [address] Social History Tobacco Use Types Packs/Day Years [...] on filedocumented in this encounter Care Teams Telex Operator Relationship Specialty Start Date End Date Jeremías Knox MD [address] [phone] PCP - General Pediatrics 05/09/22 Angel Doty MBBS [address] [place] [phone] [email or web address] Medical Oncology 02/27/24 documented as of this encounter Additional Source Comments The information contained in this document represents components of the legal health record. It is not the complete legal health record.[facility]
--- OUTSIDE RECORDS SUMMARY | 2025-09-01 15:37 | XMS_ITS | Encounter Summary ---
Author Organization [facility] Address [address] [employer] [facility] [address] [place] [address] Phone Care Team Providers Care Infusion Pharmacist Name Role Phone Jeremías Knox MD Primary Care Provid er Angel Doty MBBS Unavailable [phone] Reason for Visit * Reason Comments INR Check Encounter Details Date Type Department Care Team (Late st Contact Info) Description 08/27/2025 Documentation Anticoagulation Clinic 30 [place] [address] Kaylene Gutierres, RN 30 [place] [address] INR Check Social History Tobacco Use Types [...] 1:38 PM EDT INR result received from [facility] lab is 1.9. Rusty had no issues with elevated INR. He reported he was also taking lots of acetaminophen around the clock prior to elevated INR on Sunday. Rusty will resume warfarin at 50mg/week. Next test in a week. Rusty has appointment tomorrow with surgeon at [facility]. He likely needs colectomy. Enrique keep [...] state documented in this encounter Care Teams Infusion Pharmacist Relationship Specialty Start Date End Date Jeremías Knox MD [address] [place] [phone] PCP - General Pediatrics 05/09/22 Angel Doty MBBS [address] [place] [phone] [email or web address] Medical Oncology 02/27/24 documented as of this encounter Additional Source Comments The information contained in this document represents components of the legal health record. It is not the complete legal health record.[facility]
--- OUTSIDE RECORDS SUMMARY | 2025-09-01 15:37 | XMS_ITS | Encounter Summary ---
Author Organization [facility] Address [address] [employer] [facility] [address] [place] [address] Phone Care Team Providers Care Maintenance Services Dispatcher Name Role Phone Jeremías Knox MD Primary Care Provid er Angel Doty MBBS Unavailable [phone] Encounter Details Date Type Department Care Team (Latest Contact Info) Description 06/13/2023 Transcribe Orders Virtual Department 30 [place] [address] Jeremías Knox MD 35 [facility] 1 [place] [address] Benign neoplasm of cerebral meninges [...] Primary documented in this encounter Care Teams Maintenance Services Dispatcher Relationship Specialty Start Date End Date Jeremías Knox MD [address] [phone] PCP - General Pediatrics 05/09/22 Angel Doty MBBS [address] [place] [phone] [email or web address] Medical Oncology 02/27/24 documented as of this encounter Additional Source Comments The information contained in this document represents components of the legal health record. It is not the complete legal health record.[facility]
--- OUTSIDE RECORDS SUMMARY | 2025-09-01 15:37 | XMS_ITS | Encounter Summary ---
Author Organization [facility] Address [address] [email or web address] [facility] [address] [place] [address] Phone Care Team Providers Care Head Screen Worker Name Role Phone Jeremías Knox MD Primary Care Provid er Jeremías Knox MD Primary Care Provid er Angel Doty MB Unavailable [phone] Encounter Details Date Type Department Care Team (Latest Contact Info) Description 09/27/2017 Transcribe Orders [facility] Phleb Main 30 [place] [address] Jeremías Knox MD [address] [place] [address] Deep phlebothrombosis, antepartum, with delivery [...] EST) PT 26.1(H) 10.2 - 12.9 sec [facility] INR 2.3(H) 0.9 - 1.1 [facility] Comment:Therapeutic range fo r oral Vitamin K antagonists: 2.0-3.5 Blood 09/27/2017 9:43 AM EST 09/27/2017 9:48 AM EST us Jeremías Knox MD LAB BLOOD BKR ORDERA BLES Final Result [facility] 30 [place] [address] documented in this encounter Visit Diagnoses Diagnosis Deep phlebothrombosis, antepartum, with delivery- Primary documented in this encounter Additional Health Concerns Infection Onset Date Last Indicated Resolved Time CoV-Exposed Comment:Recent close contact 05/27/2020 05/27/2020 06/10/2020 1:27 AM EDT documented as of this encounter Care Teams Head Screen Worker Relationship Specialty Start Date End Date Jeremías Knox MD [address] [phone] PCP - General Pediatrics 08/29/17 05/08/22 Jeremías Knox MD [address] [phone] PCP - General Pediatrics 05/09/22 Angel Doty MBBS [address] [phone] [email or web address] Medical Oncology 02/27/24 documented as of this encounter Additional Source Comments The information contained in this document represents components of the legal health record. It is not the complete legal health record.[facility]
--- OUTSIDE RECORDS SUMMARY | 2025-09-01 15:37 | XMS_ITS | Encounter Summary ---
Author Organization [facility] Address [address] [facility] [address] [place] [address] Phone Care Team Providers Care Inker And Opaquer Name Role Phone Jeremías Knox MD Primary Care Provid er Angel Doty MBBS Unavailable [phone] Encounter Details Date Type Department Care Team (Late st Contact Info) Description 07/12/2023 Procedure Pass [facility], Ct Scan - [address] [address] Social History Tobacco Use Types Packs/Day Years [...] 3:04 PM EDT Analy Barksdale RN * Gilbert Suicide Severity Rating Scale (Screener/Recent Self-Report) Question [...] on filedocumented in this encounter Care Teams Inker And Opaquer Relationship Specialty Start Date End Date Jeremías Knox MD [address] [place] [phone] PCP - General Pediatrics 05/09/22 Angel Doty MBBS [address] [place] [phone] [email or web address] Medical Oncology 02/27/24 documented as of this encounter Additional Source Comments The information contained in this document represents components of the legal health record. It is not the complete legal health record.[facility]
--- OUTSIDE RECORDS SUMMARY | 2025-09-01 15:37 | XMS_ITS | Encounter Summary ---
Author Organization [facility] Address [address] [employer] [facility] [address] [place] [address] Phone Care Team Providers Care Putty Tinter Maker Name Role Phone Jeremías Knox MD Primary Care Provid er Angel Doty MBBS Unavailable [phone] Encounter Details Date Type Department Care Team (Late st Contact Info) Description 07/12/2023 Procedure Pass [facility], [address] [address] Social History Tobacco Use Types Packs/Day Years [...] 3:04 PM EDT Analy Barksdale RN * [place] Suicide Severity Rating Scale (Screener/Recent Self-Report) Question [...] on filedocumented in this encounter Care Teams Putty Tinter Maker Relationship Specialty Start Date End Date Jeremías Knox MD [address] [place] [phone] PCP - General Pediatrics 05/09/22 Angel Doty MBBS [address] [place] [address] [phone] [email or web address] Medical Oncology 02/27/24 documented as of this encounter Additional Source Comments The information contained in this document represents components of the legal health record. It is not the complete legal health record.[facility]
--- OUTSIDE RECORDS SUMMARY | 2025-09-01 15:37 | XMS_ITS | Encounter Summary ---
Author Organization [facility] Address [address] [place] [address] Phone Care Team Providers Care Assessment Coordinator Name Role Phone Jeremías Knox MD Primary Care Provid er Angel Doty MBBS Unavailable [phone] Encounter Details Date Type Department Care Team (Latest Contact Info) Description 08/27/2025 Transcribe Orders [facility] Phleb Main [address] [place] [address] Gallito Razo MD [address] [id number] Perforated diverticulum of large intestine (Primary Dx) [...] EDT) SODIUM 129(L) 133 - 146 mmol/L [facility] CHLORIDE 97 96 - 108 mmol/L [facility] POTASSIUM 4.6 3.3 - 5.1 mmol/L [facility] CO2 21 21 - 35 mmol/L [facility] BUN 21(H) 6 - 19 mg/dL [facility] CREATININE 1.30 0.5 - 1.5 mg/dL [facility] GLUCOSE 92 70 - 99 mg/dL [facility] CALCIUM 9.0 8.4 - 10.3 mg/dL [facility] EGFR 62 >59 mL/min/1.7 3m2 [facility] Comment:Estimated glomerular filtration rate calculated using the CKD-EPI refit equation. ANION GAP 16 10 - 20 mmol/L [facility] Blood 08/27/2025 10:3 7 AM EDT 08/27/2025 10:44 AM EDT us Gallito Razo MD LAB BLOOD BKR ORDERABLES Mandy pham Result [facility] [address] [place] [address] * (ABNORMAL) CBC and differential (08/27/2025 10:37 AM EDT) WBC 14.65(H) 4.00 - 11.00 K/uL [facility] RBC 4.35(L) 4.50 - 5.90 M/uL [facility] HGB 12.9(L) 13.5 - 17.5 g/dL [facility] HCT 38.2(L) 41.0 - 53.0 % [facility] PLT 129(L) 150 - 450 K/uL [facility] MCV 87.8 80.0 - 100.0 fL [facility] MCH 29.7 27.0 - 31.0 pg [facility] MCHC 33.8 32.0 - 36.0 g/dL [facility] RDW 14.2 11.5 - 14.5 % [facility] MPV 8.6 8.4 - 12.0 fL [facility] NRBC 0.00 0.00 /100 WBCs [facility] ABSOLUTE NRBC 0.00 0.00 K/uL [facility] DIFF METHOD Manual [facility] TOTAL CELLS COUNTED 100 [facility] NEUTS 76.0 48.0 - 76.0 % [facility] BANDS 1.0 0 - 10 % [facility] LYMPHS 13.0(L) 18.0 - 41.0 % [facility] MONOS 6.0 4.0 - 11.0 % [facility] EOS 1.0 0.0 - 5.0 % [facility] BASOS 1.0 0.0 - 1.5 % [facility] MYELOS 1.0(H) 0 % [facility] METAS 1.0(H) 0 % [facility] ABSOLUTE NEUTS 11.28(H) 1.92 - 7.60 K/uL [facility] ABSOLUTE LYMPHS 1.90 0.72 - 4.10 K/uL [facility] ABSOLUTE MONOS 0.88 0.16 - 1.10 K/uL [facility] ABSOLUTE EOS 0.15 0.00 - 0.50 K/uL [facility] ABSOLUTE BASOS 0.15 0.00 - 0.15 K/uL [facility] ABSOLUTE MYELOS 0.15 K/uL [facility] ABSOLUTE METAS 0.15 K/uL [facility] Blood 08/27/2025 10:3 7 AM EDT 08/27/2025 10:44 AM EDT us Gallito Razo MD LAB BLOOD BKR ORDERABLES Mandy ankit Result [facility] [address] [place] [address] documented in this encounter Visit Diagnoses Diagnosis Perforated diverticulum of large intestine- Primary Diverticulosis of colon (without mention of hemorrhage) documented in this encounter Care Teams Assessment Coordinator Relationship Specialty Start Date End Date Jeremías Knox MD [address] [place] [address] [phone] PCP - General Pediatrics 05/09/22 Angel Doty MBBS [address] [place] [address] [phone] [email or web address] Medical Oncology 02/27/24 documented as of this encounter Additional Source Comments The information contained in this document represents components of the legal health record. It is not the complete legal health record.[facility]
--- OUTSIDE RECORDS SUMMARY | 2025-09-01 15:37 | XMS_ITS | Encounter Summary ---
Author Organization [facility] Address [address] [facility] [address] [place] [phone] Phone Care Team Providers Care Solids Control Technician Name Role Phone Jeremías Knox MD Primary Care Provid er Angel Doty MBBS Unavailable [phone] Encounter Details Date Type Department Care Team (Late st Contact Info) Description 07/12/2023 Procedure [facility], Ct Scan - [address] [id number] Social History Tobacco Use Types Packs/Day Years [...] 3:04 PM EDT Analy Barksdale RN * [place] Suicide Severity Rating Scale (Screener/Recent Self-Report) Question [...] on filedocumented in this encounter Care Teams Solids Control Technician Relationship Specialty Start Date End Date Jeremías Knox MD [address] [place] [address] [phone] PCP - General Pediatrics 05/09/22 Angel Doty MBBS [address] [place] [address] [phone] [email or web address] Medical Oncology 02/27/24 documented as of this encounter Additional Source Comments The information contained in this document represents components of the legal health record. It is not the complete legal health record.[facility]
[2025-09-01] MEDS: 0.9 % Sodium Chloride Flush 3 ML SYRINGE IVFLUSH (16:07)
[2025-09-01 19:11] VITALS: BP 144/95; PULSE 93; RESP 15; TEMP 36.7; O2SAT 97
[2025-09-02 02:18] LABS: CDiff Gene PCR NEGATIVE (Negative)
[2025-09-02 03:25] VITALS: BP 132/88; PULSE 84; RESP 17; TEMP 36.5; O2SAT 97
--- NOTE | 2025-09-02 06:59 | HO.PM.IMCN ---
History of Present Illness Data of Consult Service Date: 09/02/25 Requesting physician: Gallito Razo Primary Care Provider: Jeremías Knox MD HPI Reason for consult: medical management Patient is a 64-year-old male with past medical history significant for antiphospholipid syndrome on Coumadin with recent HIT, HTN and COPD, admitted for sigmoid resection and possible ostomy plan for 09/04/2025. PICC line has been placed. Due to thrombocytopenia and heparin and concern for HRT, he has been admitted for close monitoring and frequent labs we will his Coumadin is held in preparation for surgery and he has bridged. The patient currently has no medical concerns currently including abd pain. 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 pt requesting to manage wound care during hosptialization. Review of Systems Constitutional: Constitutional: Denies body ache(s), Denies chills, Denies fatigue, Denies fever(s) and Denies headache(s) Eyes: Eyes: Denies change in vision ENT: Denies headache(s) and Denies nasal congestion Cardiovascular: Cardiovascular: Denies chest pain, Denies rapid heart rate, Denies lightheadedness and Denies dyspnea Respiratory: Respiratory: Denies cough, Denies dyspnea and Denies wheezing Gastrointestinal: Gastrointestinal: Reports as per HPI Musculoskeletal: Musculoskeletal: Denies myalgias Integumentary/Breasts: Skin/Breast: Denies rash Neurologic: Denies confusion and Denies headache(s) Psychiatric: Psychiatric: Denies confusion Endocrine: Endocrine: Denies fatigue Allergic/Immunologic: Allergic/Immunologic: Denies wheezing [facility] Medical History (Updated 09/02/25 @ 07:02 by Daniela Rod PA-C) Antiphospholipid syndrome (Unknown) Pyoderma gangrenosum Functional capacity: wheelchair bound Surgical History (Updated 09/01/25 @ 15:31 by Brian Colin MD) H/O right inguinal hernia repair Social History Household Members: Spouse Housing: House Do you presently have visiting nurse or other home services: No Patient Tobacco Use Status: Never used Tobacco Advance Directives Date on File: 08/19/25 service: No Meds Allergies Allergy/AdvReac Type Severity Reaction Status Date / Time heparin Allergy Severe heparin Verified 08/28/25 10:15 induced thrombocytopenia bacitracin Allergy Unknown Verified 08/28/25 10:15 celecoxib (From Celebrex) Allergy Unknown Verified 08/28/25 10:15 cephalexin (From Keflex) Allergy Unknown Verified 08/28/25 10:15 sulfacetamide (From Allergy Unknown Verified 08/28/25 10:15 Sulfamide) sulfamethoxazole (From Allergy Unknown Verified 08/28/25 10:15 Bactrim) trimethoprim (From Bactrim) Allergy Unknown Verified 08/28/25 10:15 Active Medications: Current Medications Acetaminophen (Acetaminophen 325 Mg Tablet) 650 mg PO Q6H PRN PRN Reason: Pain, Mild 1-3,fever,headache Al Hydroxide/Mg Hydroxide (Magnesium Hydrox/Alum Hydrox 30 Ml Oral.Susp) 30 ml PO Q4H PRN PRN Reason: Heartburn Albuterol Sulfate (Albuterol Sulfate 90 Mcg 8 Gm Inhaler) 2 puff INHALE Q6H PRN PRN Reason: Shortness Of Breath Or Wheezing Calcium Carbonate (Calcium Carbonate 750 Mg Tab.Chew) 750 mg PO Q4H PRN PRN Reason: Heartburn Fluticasone Propionate (Fluticasone Propionate Nasal 16 Gm [place]) 1 spray NOSTRIL-B DAILY PRN PRN Reason: Allergy Symptoms Furosemide (Furosemide 40 Mg Tablet) 40 mg PO DAILY JONATHAN; Protocol Hydromorphone HCl (Hydromorphone Hcl 1 Mg/Ml Syringe) 0.5 mg IVPUSH Q4H PRN; Protocol PRN Reason: Pain, Severe (Pain Scale 7-10) Loratadine (Loratadine 10 Mg Tablet) 10 mg PO DAILY JONATHAN Losartan Potassium (Losartan Potassium 50 Mg Tablet) 100 mg PO DAILY JONATHAN; Protocol Magnesium Hydroxide (Milk Of Magnesia 30 Ml Oral.Susp) 30 ml PO DAILY PRN PRN Reason: Constipation Melatonin (Melatonin 3 Mg Tablet) 6 mg PO BEDTIME PRN PRN Reason: Insomnia Omeprazole (Omeprazole 20 Mg Capsule.Dr) 20 mg PO SUTUTHSA@0630 [facility] Ondansetron HCl (Ondansetron Hcl 4 Mg/2 Ml Vial) 4 mg IVPUSH Q8H PRN PRN Reason: Nausea and Vomiting Oxycodone HCl (Oxycodone Hcl Immed Release 5 Mg Tablet) 5 mg PO Q6H PRN PRN Reason: Pain, Moderate(Pain Scale 4-6) Sodium Chloride (0.9 % Sodium Chloride Flush 3 Ml Syringe) 3 ml IVFLUSH QSHIFT [facility] Last Admin: 09/01/25 23:43 Dose: Not Given Trazodone HCl (Trazodone Hcl 50 Mg Tablet) 50 mg PO DAILY PRN PRN Reason: Insomnia Vitamin D (Cholecalciferol (Vitamin D3) 25 Mcg Tablet) 100 mcg PO DAILY [facility] Home Medications ?Medication ?Instructions ?Recorded ?Confirmed ?Last Taken ?Type Tumeric 500 mg PO DAILY 08/10/25 09/01/25 Unknown History albuterol sulfate 90 mcg/actuation 2 inh inhalation Q6H PRN Shortness 08/10/25 09/01/25 Unknown History breath activated powder inhaler Of Breath Or Wheezing cetirizine 10 mg tablet 10 mg PO DAILY 08/10/25 09/01/25 Unknown History cholecalciferol (vitamin D3) 25 100 mcg PO DAILY 08/10/25 09/01/25 Unknown History mcg (1,000 unit) chewable tablet (Vitamin D3) clobetasol 0.05 % topical cream 1 g topical DAILY 08/10/25 09/01/25 Unknown History fluticasone propionate 50 1 spray intranasal DAILY PRN 08/10/25 09/01/25 Unknown History mcg/actuation nasal Allergy Symptoms spray,suspension furosemide 40 mg tablet 40 mg PO DAILY 08/10/25 09/01/25 Unknown History losartan 100 mg tablet 100 mg PO DAILY 08/10/25 09/01/25 Unknown History omeprazole 20 mg capsule,delayed 20 mg PO SUTUTHSA@0630 08/10/25 09/01/25 Unknown History release trazodone 50 mg tablet 50 mg PO DAILY PRN Insomnia 08/10/25 09/01/25 Unknown History warfarin 5 mg tablet 5 mg PO SUTUTHSA 08/10/25 09/01/25 Unknown History warfarin 5 mg tablet 10 mg PO MOWEFR 08/10/25 09/01/25 Unknown History Physical Exam Vital Signs and Narrative: Vital Signs: Last Vital Signs Temp 97.7 F 09/02/25 03:25 Pulse 84 09/02/25 03:25 Resp 17 09/02/25 03:25 BP 132/88 09/02/25 03:25 Pulse Ox 97 09/02/25 03:25 O2 Del Method Room Air 09/02/25 03:25 BMI result Body Mass Index 33.9 General: AOx3, no acute distress Resp: CTA bilaterally CVS: S1, S2, RRR GI: +BS, NT, no distention Skin: Warm, dry Neuro: Cranial nerves II-XII grossly intact bilaterally. Motor grossly intact bilaterally Extremities: No edema Psych: Appropriate affect Const: General: No confusion Orientation/consciousness: No confusion Neuro: General: No confusion Results Labs 09/01/25 15:11 09/01/25 15:11 Labs: Laboratory Results - last 24 hr 09/01/25 09/02/25 15:11 00:05 MCV 88.1 MCH 29.2 MCHC 33.2 RDW 14.6 Plt Count 121 L D MPV 10.4 Immature Gran % (Auto) 1.2 H Neut % (Auto) 76.1 H Lymph % (Auto) 14.6 L [place] % (Auto) 7.0 Eos % (Auto) 0.7 Baso % (Auto) 0.4 Lymph # (Auto) 1.7 [place] # (Auto) 0.8 Eos # (Auto) 0.1 Baso # (Auto) 0.1 Abs Immat Gran (auto) 0.14 H Absolute Neuts (auto) 8.9 H Absolute Nucleated RBC 0.000 Nucleated RBC % (auto) 0.0 PT 38.2 H D INR 3.3 H D Anion Gap 13 Estim Creat Clear Calc TNP Estimated GFR 51 Random Glucose 96 Calcium 9.1 C. difficile Tox B Gene NEGATIVE Assessment and Plan (1) Diverticulitis of large intestine with complication: Status: Acute Plan Patient is a 64-year-old male with past medical history significant for antiphospholipid syndrome on Coumadin with recent HIT, HTN and asthma, admitted for sigmoid resection and possible ostomy plan for 09/04/2025. divertiulitis with complication - plan per surgery Antiphospholipid syndrome - hold Coumadin, bridged with argatroban per heme HTN - losartan, Lasix asthma, unspecified - fluticasone, albuterol, cetirizine Pyoderma gangrenosum - patient's to do wound care Thank you for allowing me to participate in the pt's care. Signing off. Please contact the medical team if any questions or concerns.
[2025-09-02 07:22] VITALS: BP 132/97; PULSE 79; RESP 16; TEMP 36.8; O2SAT 98
[2025-09-02] MEDS: 0.9 % Sodium Chloride Flush 3 ML SYRINGE IVFLUSH (08:09)
[2025-09-02 09:23] LABS: Hematocrit 42.0 % (42.0-52.0); Hemoglobin 13.6 g/dl (14.0-18.0); Mean Corpuscular HGB Conc 32.4 g/dl (31.0-36.0); Mean Corpuscular Hemoglobin 28.5 pg (27.0-33.0); Mean Corpuscular Volume 88.1 fL (80.0-98.0); NRBC Abs Auto 0.000 X10*3/uL (0.0-0.012); NRBC Pct Auto 0.0 /100WBC (0.0-0.2); Red Blood Count 4.77 X10*6/uL (4.60-5.80); White Blood Count 12.1 X10*3/uL (4.8-10.8)
[2025-09-02 09:25] LABS: Platelet Count 94 X10*3/uL (160-400)
--- NOTE | 2025-09-02 09:30 | P.PNGS_ITS ---
Subjective Subjective Date of Service: 09/02/25 Interval history: Feels ok this morning. No new complaints. Physical Exam 2 Vital Signs: Vital Signs: Last Vital Signs Temp 98.2 F 09/02/25 07:22 Pulse 79 09/02/25 07:22 Resp 16 09/02/25 07:22 BP 132/97 H 09/02/25 07:22 Pulse Ox 98 09/02/25 07:22 O2 Del Method Room Air 09/02/25 07:22 BMI result Body Mass Index 33.9 Const: General: comfortable, no acute distress and alert O rientation/consciousness: patient oriented x3 Resp: Effort & Inspection: normal respiratory effort GI: Palpation (GI): Soft to palpation, Tenderness to palpation present (GI) (left sided/LLQ, mild) and no guarding Percussion: Yes normal to percussion Skin: Other: warm and dry Neuro: General: patient oriented x3 and moves all extremities Objective Data Active Medications Acetaminophen (Acetaminophen 325 Mg Tablet) 650 mg PO Q6H PRN PRN Reason: Pain, Mild 1-3,fever,headache Last Admin: 09/02/25 08:08 Dose: 650 mg Documented By: LAURIE Al Hydroxide/Mg Hydroxide (Magnesium Hydrox/Alum Hydrox 30 Ml Oral.Susp) 30 ml PO Q4H PRN PRN Reason: Heartburn Albuterol Sulfate (Albuterol Sulfate 90 Mcg 8 Gm Inhaler) 2 puff INHALE Q6H PRN PRN Reason: Shortness Of Breath Or Wheezing Calcium Carbonate (Calcium Carbonate 750 Mg Tab.Chew) 750 mg PO Q4H PRN PRN Reason: Heartburn Fluticasone Propionate (Fluticasone Propionate Nasal 16 Gm [place]) 1 spray NOSTRIL-B DAILY PRN PRN Reason: Allergy Symptoms Furosemide (Furosemide 20 Mg Tablet) 20 mg PO DAILY JONATHAN; Protocol Last Admin: 09/02/25 08:01 Dose: 20 mg Documented By: LAURIE Hydromorphone HCl (Hydromorphone Hcl 1 Mg/Ml Syringe) 0.5 mg IVPUSH Q4H PRN; Protocol PRN Reason: Pain, Severe (Pain Scale 7-10) Loratadine (Loratadine 10 Mg Tablet) 10 mg PO DAILY JONATHAN Last Admin: 09/02/25 08:05 Dose: Not Given Documented By: LAURIE Non-Admin Reason: Patient Refused Losartan Potassium (Losartan Potassium 50 Mg Tablet) 100 mg PO DAILY [facility]; Protocol Last Admin: 09/02/25 08:01 Dose: 100 mg Documented By: LAURIE Magnesium Hydroxide (Milk Of Magnesia 30 Ml Oral.Susp) 30 ml PO DAILY PRN PRN Reason: Constipation Melatonin (Melatonin 3 Mg Tablet) 6 mg PO BEDTIME PRN PRN Reason: Insomnia Omeprazole (Omeprazole 20 Mg Capsule.Dr) 20 mg PO SUTUTHSA@0630 [facility] Ondansetron HCl (Ondansetron Hcl 4 Mg/2 Ml Vial) 4 mg IVPUSH Q8H PRN PRN Reason: Nausea and Vomiting Oxycodone HCl (Oxycodone Hcl Immed Release 5 Mg Tablet) 5 mg PO Q6H PRN PRN Reason: Pain, Moderate(Pain Scale 4-6) Sodium Chloride (0.9 % Sodium Chloride Flush 3 Ml Syringe) 3 ml IVFLUSH QSHIFT [facility] Last Admin: 09/02/25 08:09 Dose: 3 ml Documented By: LAUREI Trazodone HCl (Trazodone Hcl 50 Mg Tablet) 50 mg PO DAILY PRN PRN Reason: Insomnia Vitamin D (Cholecalciferol (Vitamin D3) 25 Mcg Tablet) 100 mcg PO DAILY [facility] Last Admin: 09/02/25 08:01 Dose: 100 mcg Documented By: LAURIE Labs 09/02/25 09:01 09/01/25 15:11 Labs: Laboratory Results - last 24 hr 09/01/25 09/02/25 09/02/25 15:11 00:05 09:01 MCV 88.1 88.1 MCH 29.2 28.5 MCHC 33.2 32.4 RDW 14.6 14.2 Plt Count 121 L D 94 L MPV 10.4 10.8 Immature Gran % (Auto) 1.2 H Neut % (Auto) 76.1 H Lymph % (Auto) 14.6 L [place] % (Auto) 7.0 Eos % (Auto) 0.7 Baso % (Auto) 0.4 Lymph # (Auto) 1.7 [place] # (Auto) 0.8 Eos # (Auto) 0.1 Baso # (Auto) 0.1 Abs Immat Gran (auto) 0.14 H Absolute Neuts (auto) 8.9 H Absolute Nucleated RBC 0.000 0.000 Nucleated RBC % (auto) 0.0 0.0 PT 38.2 H D INR 3.3 H D Anion Gap 13 Estim Creat Clear Calc TNP Estimated GFR 51 Random Glucose 96 Calcium 9.1 C. difficile Tox B Gene NEGATIVE Procedures Date of Service Date of Service: 09/02/25 Progress Note: A&P Assessment and plan (1) Anti-phospholipid antibody syndrome: Status: Acute (2) Diverticulitis of large intestine with complication: Status: Acute Plan Coumadin on hold (last dose 08/31) for bridging with argatroban, hematology/hospitalists following to facilitate. Cont to plan BOB sigmoid resection, possible ostomy on 09/04/25. Clear liquid diet and bowel prep to begin tomorrow. Patient understands and agrees with plan. Time Spent With Patient Time: Total time managing care of this patient today ____ minutes. Quality Stroke Does the patient have a stroke diagnosis?: No VTE Prior VTE?: No VTE Risk Level:: Surgical - high VTE Device Contraindication: N/A - Device Ordered VTE Drug Contraindication: N/A - Med Ordered
[2025-09-02 09:52] LABS: INTERNATIONAL NORM RATIO 2.6 (0.9-1.1); Prothrombin Time 30.5 SEC (11.2-13.5)
[2025-09-02 09:54] LABS: Partial Thromboplastin Time 42.4 SEC (26.7-34.1)
[2025-09-02 10:32] LABS: Albumin Level 3.5 g/dL (3.5-5.0); Alkaline Phosphatase 159 U/L (39-117); Anion Gap 11 (12-20); Aspartate Amino Transferase 42 U/L (5-37); Blood Urea Nitrogen 25 mg/dL (9-16); Calcium 9.4 mg/dL (8.4-10.2); Carbon Dioxide 24 mmol/L (22-29); Chloride 105 mmol/L (96-108); Creatinine Clr Calc Pharmacy 60.8; Estimated Glomerular Filt Rate 49; Potassium 4.3 mmol/L (3.3-5.1); Sodium 136 mmol/L (135-145); Total Protein 7.5 g/dL (6.5-8.0)
[2025-09-02 10:59] LABS: Alanine Aminotransferase 97 U/L (0-40)
--- NOTE | 2025-09-02 12:55 | HO.WOUND ---
Wound Consult: Initial 64 yr old male admitted to [facility] [place] - See progress notes and H&P for detailed history. Wound consult placed for left leg wound. Patient with preference for significant other to do dressing changes. Patient reports that wound started with an injury from an axe while chopping wood about 3 years ago. initial wound healed but developed wounds from dressings. patient is followed by [facility], and was recently biopsied suggestive of pyoderma gangrenosum. patient started on topical steroids (clobetasol) to wound bed, with improvement. patient uses vashe wound cleanser with clobetasol to wound bed, patient provided with gauze and rolls for dressing changes. Recommendations: wound care per outpatient - significant other to do dressing changes Re-consult wound care Nurse for wound deterioration or wound changes.
--- NOTE | 2025-09-02 13:46 | MHC.CM.PN ---
Patient lives in a home w/ S.O. Independent w/ all care. 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 PCP Jeremías Knox MD HCP on file and verified. DP: Potential need for new ostomy. Discussed dc plan with patient who is not open to VNA services. Reports he and his partner would manage an ostomy if needed. Informed wound RN, as patient would need assistance w/ supply ordering. S.O. will transport on dc. CM will continue to follow.
[2025-09-02] MEDS: oxyCODONE HCl Immed Release 5 MG TABLET PO (15:10)
[2025-09-02 15:28] VITALS: BP 139/96; PULSE 87; RESP 18; TEMP 36.6; O2SAT 98
[2025-09-02 19:07] VITALS: BP 141/93; PULSE 87; RESP 18; TEMP 37.2
[2025-09-03 03:15] VITALS: BP 120/84; PULSE 88; RESP 15; TEMP 36.9; O2SAT 97
[2025-09-03] MEDS: oxyCODONE HCl Immed Release 5 MG TABLET PO ×2 (06:01→19:02)
[2025-09-03 08:00] VITALS: BP 134/94; PULSE 80; RESP 15; TEMP 36.6; O2SAT 97
--- NOTE | 2025-09-03 09:09 | HO.ANESPROP2 ---
Documented by User: Celestina Núñez NP 09/03/25 11:56 HPI - Anesthesia Eval Consult details Narrative: 64 yr old male for Hand Assist Laparoscopic Sigmoid Resection,possible Colostomy INR 1.7 on 09/03/25 Antiphospholipid syndrome: on coumadin, follows hem/onc at [facility]; admitted with acute thrombocytopenia, ?HIT, sepsis, DIC, or consumptive process, admitted to be bridged with argatroban in prep for surgery. INR as above; Platelets 94 on 09/02/25. PICC line in place due to difficult IV access. H/O Pyoderma gangrenosum: periodic antibx tx PMFSH Active Problems Active Problems: All Active Problems (Updated 09/02/25 @ 07:02 by Daniela Rod PA-C) COPD (chronic obstructive pulmonary disease) (Acute) HIT (heparin-induced thrombocytopenia) (Acute) Anti-phospholipid antibody syndrome (Acute) Anticoagulated on Coumadin (Acute) Diverticulitis of large intestine with complication (Acute) Hypertension (Acute) Thrombocytopenia (Chronic) Past Medical History Medical History (Updated 09/02/25 @ 07:02 by Daniela Rod PA-C) Antiphospholipid syndrome (Unknown) Pyoderma gangrenosum Functional capacity: wheelchair bound Surgical History Surgical History (Updated 09/01/25 @ 15:31 by Brian Colin MD) H/O right inguinal hernia repair Social History Social History Household Members: Spouse Housing: House Do you presently have visiting nurse or other home services: No Patient Tobacco Use Status: Never used Tobacco Advance Directives Date on File: 08/19/25 service: No Meds Allergies Allergy/AdvReac Type Severity Reaction Status Date / Time heparin Allergy Severe heparin Verified 08/28/25 10:15 induced thrombocytopenia bacitracin Allergy Unknown Verified 08/28/25 10:15 celecoxib (From Celebrex) Allergy Unknown Verified 08/28/25 10:15 cephalexin (From Keflex) Allergy Unknown Verified 08/28/25 10:15 sulfacetamide (From Allergy Unknown Verified 08/28/25 10:15 Sulfamide) sulfamethoxazole (From Allergy Unknown Verified 08/28/25 10:15 Bactrim) trimethoprim (From Bactrim) Allergy Unknown Verified 08/28/25 10:15 Active Medications: Current Medications Acetaminophen (Acetaminophen 325 Mg Tablet) 650 mg PO Q6H PRN PRN Reason: Pain, Mild 1-3,fever,headache Last Admin: 09/02/25 19:44 Dose: 650 mg Al Hydroxide/Mg Hydroxide (Magnesium Hydrox/Alum Hydrox 30 Ml Oral.Susp) 30 ml PO Q4H PRN PRN Reason: Heartburn Albuterol Sulfate (Albuterol Sulfate 90 Mcg 8 Gm Inhaler) 2 puff INHALE Q6H PRN PRN Reason: Shortness Of Breath Or Wheezing Calcium Carbonate (Calcium Carbonate 750 Mg Tab.Chew) 750 mg PO Q4H PRN PRN Reason: Heartburn Fluticasone Propionate (Fluticasone Propionate Nasal 16 Gm [place]) 1 spray NOSTRIL-B DAILY PRN PRN Reason: Allergy Symptoms Furosemide (Furosemide 20 Mg Tablet) 20 mg PO DAILY [facility]; Protocol Last Admin: 09/03/25 09:00 Dose: 20 mg Hydromorphone HCl (Hydromorphone Hcl 1 Mg/Ml Syringe) 0.5 mg IVPUSH Q4H PRN; Protocol PRN Reason: Pain, Severe (Pain Scale 7-10) Cefepime HCl 1 gm/ Sodium (Chloride) 50 mls @ 100 mls/hr IV Q12H [facility] Last Infusion: 09/02/25 23:52 Dose: Infused Loratadine (Loratadine 10 Mg Tablet) 10 mg PO DAILY [facility] Last Admin: 09/03/25 09:01 Dose: 10 mg Losartan Potassium (Losartan Potassium 50 Mg Tablet) 100 mg PO DAILY [facility]; Protocol Last Admin: 09/03/25 09:00 Dose: 100 mg Magnesium Hydroxide (Milk Of Magnesia 30 Ml Oral.Susp) 30 ml PO DAILY PRN PRN Reason: Constipation Melatonin (Melatonin 3 Mg Tablet) 6 mg PO BEDTIME PRN PRN Reason: Insomnia Metronidazole (Metronidazole 500 Mg Tablet) 500 mg PO Q8H [facility] Last Admin: 09/03/25 03:01 Dose: 500 mg Omeprazole (Omeprazole 20 Mg Capsule.Dr) 20 mg PO SUTUTHSA@0630 [facility] Last Admin: 09/03/25 05:05 Dose: 20 mg Ondansetron HCl (Ondansetron Hcl 4 Mg/2 Ml Vial) 4 mg IVPUSH Q8H PRN PRN Reason: Nausea and Vomiting Oxycodone HCl (Oxycodone Hcl Immed Release 5 Mg Tablet) 5 mg PO Q6H PRN PRN Reason: Pain, Moderate(Pain Scale 4-6) Last Admin: 09/03/25 06:01 Dose: 5 mg Sodium Chloride (0.9 % Sodium Chloride Flush 3 Ml Syringe) 3 ml IVFLUSH [facility] Last Admin: 09/03/25 09:05 Dose: Not Given Trazodone HCl (Trazodone Hcl 50 Mg Tablet) 50 mg PO DAILY PRN PRN Reason: Insomnia Vitamin D (Cholecalciferol (Vitamin D3) 25 Mcg Tablet) 100 mcg PO DAILY [facility] Last Admin: 09/03/25 09:00 Dose: 100 mcg Home Medications ?Medication ?Instructions ?Recorded ?Confirmed ?Last Taken ?Type Tumeric 500 mg PO DAILY 08/10/25 09/01/25 Unknown History albuterol sulfate 90 mcg/actuation 2 inh inhalation Q6H PRN Shortness 08/10/25 09/01/25 Unknown History breath activated powder inhaler Of Breath Or Wheezing cetirizine 10 mg tablet 10 mg PO DAILY 08/10/25 09/01/25 Unknown History cholecalciferol (vitamin D3) 25 100 mcg PO DAILY 08/10/25 09/01/25 Unknown History mcg (1,000 unit) chewable tablet (Vitamin D3) clobetasol 0.05 % topical cream 1 g topical DAILY 08/10/25 09/01/25 Unknown History fluticasone propionate 50 1 spray intranasal DAILY PRN 08/10/25 09/01/25 Unknown History mcg/actuation nasal Allergy Symptoms spray,suspension furosemide 40 mg tablet 40 mg PO DAILY 08/10/25 09/01/25 Unknown History losartan 100 mg tablet 100 mg PO DAILY 08/10/25 09/01/25 Unknown History omeprazole 20 mg capsule,delayed 20 mg PO SUTUTHSA@0630 08/10/25 09/01/25 Unknown History release trazodone 50 mg tablet 50 mg PO DAILY PRN Insomnia 08/10/25 09/01/25 Unknown History warfarin 5 mg tablet 5 mg PO SUTUTHSA 08/10/25 09/01/25 Unknown History warfarin 5 mg tablet 10 mg PO MOWEFR 08/10/25 09/01/25 Unknown History Exam Height,Weight and Vital Signs: Height 5 ft 8 in Weight 101.1 kg Last Vital Signs Temp 97.8 F 09/03/25 08:00 Pulse 80 09/03/25 08:00 Resp 15 09/03/25 08:00 BP 134/94 H 09/03/25 08:00 Pulse Ox 97 09/03/25 08:00 O2 Del Method Room Air 09/03/25 08:00 Pertinent Lab Results Pertinent Lab Results: Laboratory Tests 09/01/25 09/02/25 09/02/25 15:11 00:05 09:01 WBC 11.7 H 12.1 H RBC 4.62 4.77 Hgb 13.5 L 13.6 L Hct 40.7 L 42.0 MCV 88.1 88.1 MCH 29.2 28.5 MCHC 33.2 32.4 RDW 14.6 14.2 Plt Count 121 L D 94 L MPV 10.4 10.8 Immature Gran % (Auto) 1.2 H Neut % (Auto) 76.1 H Lymph % (Auto) 14.6 L [place] % (Auto) 7.0 Eos % (Auto) 0.7 Baso % (Auto) 0.4 Lymph # (Auto) 1.7 [place] # (Auto) 0.8 Eos # (Auto) 0.1 Baso # (Auto) 0.1 Abs Immat Gran (auto) 0.14 H Absolute Neuts (auto) 8.9 H Absolute Nucleated RBC 0.000 0.000 Nucleated RBC % (auto) 0.0 0.0 PT 38.2 H D INR 3.3 H D APTT Hold Blue Top Sodium 134 L Potassium 4.9 Chloride 104 Carbon Dioxide 22 Anion Gap 13 BUN 26 H Creatinine 1.40 Estim Creat Clear Calc TNP Estimated GFR 51 Random Glucose 96 Calcium 9.1 Total Bilirubin Direct Bilirubin AST ALT Alkaline Phosphatase Total Protein Albumin C. difficile Tox B Gene NEGATIVE 09/02/25 09/02/25 09/03/25 09:39 10:05 08:51 WBC RBC Hgb Hct MCV MCH MCHC RDW Plt Count MPV Immature Gran % (Auto) Neut % (Auto) Lymph % (Auto) [place] % (Auto) Eos % (Auto) Baso % (Auto) Lymph # (Auto) [place] # (Auto) Eos # (Auto) Baso # (Auto) Abs Immat Gran (auto) Absolute Neuts (auto) Absolute Nucleated RBC Nucleated RBC % (auto) PT 30.5 H INR 2.6 H APTT 42.4 H Hold Blue Top SEE NOTE Sodium 136 Potassium 4.3 Chloride 105 Carbon Dioxide 24 Anion Gap 11 L BUN 25 H Creatinine 1.45 H Estim Creat Clear Calc 60.8 Estimated GFR 49 Random Glucose 128 H Calcium 9.4 Total Bilirubin 0.8 Direct Bilirubin 0.3 AST 42 H ALT 97 H Alkaline Phosphatase 159 H Total Protein 7.5 Albumin 3.5 C. difficile Tox B Gene Narrative Narrative: EKG 08/10/25 Vent. Rate : 99 BPM Atrial Rate : 99 BPM P-R Int : 158 ms QRS Dur : 94 ms QT Int : 324 ms P-R-T Axes : 28 69 4 degrees QTcB Int : 415 ms Normal sinus rhythm Normal ECG No previous ECGs available Documented by User: Jenny Freitas MD 09/04/25 07:55 PMFSH Past Medical History Medical History (Updated 09/02/25 @ 07:02 by Daniela Rod PA-C) Antiphospholipid syndrome (Unknown) Pyoderma gangrenosum Family History Family history of problems with anesthesia: No Surgical History Surgical History (Updated 09/01/25 @ 15:31 by Brian Colin MD) H/O right inguinal hernia repair History of Problems with Anesthesia: No Social History Social History Household Members: Spouse Housing: House Do you presently have visiting nurse or other home services: No Patient Tobacco Use Status: Never used Tobacco Advance Directives Date on File: 08/19/25 service: No Meds Allergies Allergy/AdvReac Type Severity Reaction Status Date / Time heparin Allergy Severe heparin Verified 08/28/25 10:15 induced thrombocytopenia bacitracin Allergy Unknown Verified 08/28/25 10:15 celecoxib (From Celebrex) Allergy Unknown Verified 08/28/25 10:15 cephalexin (From Keflex) Allergy Unknown Verified 08/28/25 10:15 sulfacetamide (From Allergy Unknown Verified 08/28/25 10:15 Sulfamide) sulfamethoxazole (From Allergy Unknown Verified 08/28/25 10:15 Bactrim) trimethoprim (From Bactrim) Allergy Unknown Verified 08/28/25 10:15 Home Medications ?Medication ?Instructions ?Recorded ?Confirmed ?Last Taken ?Type Tumeric 500 mg PO DAILY 08/10/25 09/01/25 Unknown History albuterol sulfate 90 mcg/actuation 2 inh inhalation Q6H PRN Shortness 08/10/25 09/01/25 Unknown History breath activated powder inhaler Of Breath Or Wheezing cetirizine 10 mg tablet 10 mg PO DAILY 08/10/25 09/01/25 Unknown History cholecalciferol (vitamin D3) 25 100 mcg PO DAILY 08/10/25 09/01/25 Unknown History mcg (1,000 unit) chewable tablet (Vitamin D3) clobetasol 0.05 % topical cream 1 g topical DAILY 08/10/25 09/01/25 Unknown History fluticasone propionate 50 1 spray intranasal DAILY PRN 08/10/25 09/01/25 Unknown History mcg/actuation nasal Allergy Symptoms spray,suspension furosemide 40 mg tablet 40 mg PO DAILY 08/10/25 09/01/25 Unknown History losartan 100 mg tablet 100 mg PO DAILY 08/10/25 09/01/25 Unknown History omeprazole 20 mg capsule,delayed 20 mg PO SUTUTHSA@0630 08/10/25 09/01/25 Unknown History release trazodone 50 mg tablet 50 mg PO DAILY PRN Insomnia 08/10/25 09/01/25 Unknown History warfarin 5 mg tablet 5 mg PO SUTUTHSA 08/10/25 09/01/25 Unknown History warfarin 5 mg tablet 10 mg PO MOWEFR 08/10/25 09/01/25 Unknown History Exam Airway Mallampati Class: II TM Dist: >3cm Neck ROM: Full Heart: rrr Lungs: cta Assessment and Plan Assessment Anesthesia Assessment: Anesthesia Plan Discussed and Chart Reviewed Final Anesthetic Review Family History of Problems with Anesthesia: No History of Problems with Anesthesia: No NPO: Yes ASA Class: III Final Preanesthetic Review: No Changes in Pt Med Stat (INR 1.9 ), Meds/Allgs Chart Reviewed, Consent Obtained/Reviewed and Anes Risks/Benef Reviewed Patient Risk: Intermediate Procedure Risk: Intermediate Anesthetic Plan Anesthetic Plan: GA (if surgeon clears despite high INR ) and Agree w/ Assess. and Plan Disposition: Standard PACU
[2025-09-03 09:18] LABS: INTERNATIONAL NORM RATIO 1.7 (0.9-1.1); Prothrombin Time 20.6 SEC (11.2-13.5)
--- NOTE | 2025-09-03 09:35 | PM.PNGS ---
Subjective Subjective Date of Service: 09/03/25 Interval history: Unfortunately having difficulty with blood draws off his PICC line. Reports some continued LLQ pain and cramping. Physical Exam Vital Signs: Vital Signs: Last Vital Signs Temp 97.8 F 09/03/25 08:00 Pulse 80 09/03/25 08:00 Resp 15 09/03/25 08:00 BP 134/94 H 09/03/25 08:00 Pulse Ox 97 09/03/25 08:00 O2 Del Method Room Air 09/03/25 08:00 BMI result Body Mass Index 33.9 Const: General: comfortable, no acute distress and alert Orientation/consciousness: patient oriented x3 Resp: Effort & Inspection: normal respiratory effort GI: Other: abdomen remains tender in the LLQ Palpation (GI): Soft to palpation and no guarding Skin: General skin exam: no rashes or lesions noted and no jaundice Neuro: General: patient oriented x3 and moves all extremities Objective Data Active Medications Acetaminophen (Acetaminophen 325 Mg Tablet) 650 mg PO Q6H PRN PRN Reason: Pain, Mild 1-3,fever,headache Last Admin: 09/02/25 19:44 Dose: 650 mg Documented By: BRONWYN Al Hydroxide/Mg Hydroxide (Magnesium Hydrox/Alum Hydrox 30 Ml Oral.Susp) 30 ml PO Q4H PRN PRN Reason: Heartburn Albuterol Sulfate (Albuterol Sulfate 90 Mcg 8 Gm Inhaler) 2 puff INHALE Q6H PRN PRN Reason: Shortness Of Breath Or Wheezing Calcium Carbonate (Calcium Carbonate 750 Mg Tab.Chew) 750 mg PO Q4H PRN PRN Reason: Heartburn Fluticasone Propionate (Fluticasone Propionate Nasal 16 Gm [place]) 1 spray NOSTRIL-B DAILY PRN PRN Reason: Allergy Symptoms Furosemide (Furosemide 20 Mg Tablet) 20 mg PO DAILY JONATHAN; Protocol Last Admin: 09/03/25 09:00 Dose: 20 mg Documented By: JACQUELYN Hydromorphone HCl (Hydromorphone Hcl 1 Mg/Ml Syringe) 0.5 mg IVPUSH Q4H PRN; Protocol PRN Reason: Pain, Severe (Pain Scale 7-10) Cefepime HCl 1 gm/ Sodium (Chloride) 50 mls @ 100 mls/hr IV Q12H [facility] Last Infusion: 09/02/25 23:52 Dose: Infused Documented By: BRONWYN Loratadine (Loratadine 10 Mg Tablet) 10 mg PO DAILY [facility] Last Admin: 09/03/25 09:01 Dose: 10 mg Documented By: JACQUELYN Losartan Potassium (Losartan Potassium 50 Mg Tablet) 100 mg PO DAILY [facility]; Protocol Last Admin: 09/03/25 09:00 Dose: 100 mg Documented By: JACQUELYN Magnesium Hydroxide (Milk Of Magnesia 30 Ml Oral.Susp) 30 ml PO DAILY PRN PRN Reason: Constipation Melatonin (Melatonin 3 Mg Tablet) 6 mg PO BEDTIME PRN PRN Reason: Insomnia Metronidazole (Metronidazole 500 Mg Tablet) 500 mg PO Q8H [facility] Last Admin: 09/03/25 03:01 Dose: 500 mg Documented By: BRONWYN Midazolam HCl (Midazolam Hcl 2 Mg/2 Ml Vial) 1 mg IVPUSH DAILY PRN PRN Reason: anxiety Omeprazole (Omeprazole 20 Mg Capsule.Dr) 20 mg PO SUTUTHSA@0630 [facility] Last Admin: 09/03/25 05:05 Dose: 20 mg Documented By: BRONWYN Ondansetron HCl (Ondansetron Hcl 4 Mg/2 Ml Vial) 4 mg IVPUSH Q8H PRN PRN Reason: Nausea and Vomiting Oxycodone HCl (Oxycodone Hcl Immed Release 5 Mg Tablet) 5 mg PO Q6H PRN PRN Reason: Pain, Moderate(Pain Scale 4-6) Last Admin: 09/03/25 06:01 Dose: 5 mg Documented By: BRONWYN Polyethylene Glycol/Electrolytes (Peg 3350/Na Sulf,Bicarb,Cl/Kcl 4,000 Ml Soln.Recon) 4,000 ml PO ONCE ONE Stop: 09/03/25 10:14 Sodium Chloride (0.9 % Sodium Chloride Flush 3 Ml Syringe) 3 ml IVFLUSH QSHIFT [facility] Last Admin: 09/03/25 09:05 Dose: Not Given Documented By: JACQUELYN Non-Admin Reason: pt has a picc line Trazodone HCl (Trazodone Hcl 50 Mg Tablet) 50 mg PO DAILY PRN PRN Reason: Insomnia Vitamin D (Cholecalciferol (Vitamin D3) 25 Mcg Tablet) 100 mcg PO DAILY [facility] Last Admin: 09/03/25 09:00 Dose: 100 mcg Documented By: JACQUELYN Labs 09/02/25 09:01 09/02/25 10:05 Labs: Laboratory Results - last 24 hr 09/02/25 09/02/25 09/03/25 09:39 10:05 08:51 PT 30.5 H 20.6 H D INR 2.6 H 1.7 H APTT 42.4 H Hold Blue Top SEE NOTE Anion Gap 11 L Estim Creat Clear Calc 60.8 Estimated GFR 49 Random Glucose 128 H Calcium 9.4 Total Bilirubin 0.8 Direct Bilirubin 0.3 AST 42 H ALT 97 H Alkaline Phosphatase 159 H Total Protein 7.5 Albumin 3.5 Procedures Date of Service Date of Service: 09/03/25 Progress Note: A&P Assessment and plan (1) Anti-phospholipid antibody syndrome: Status: Acute (2) Diverticulitis of large intestine with complication: Status: Acute Plan Coumadin on hold (last dose 08/31) for bridging with argatroban. Anticoagulation held yesterday as INR remained therapeutic. This AM labs are pending. Hematology following to facilitate. Cont to plan BOB sigmoid resection, possible ostomy on 09/04/25. Clear liquid diet and bowel prep along with oral antibiotics to begin today. Plan CBC, BMP and type and screen in the AM. Patient understands and agrees with plan. All questions answered. NPO after midnight. Time Spent With Patient Time: Total time managing care of this patient today ____ minutes. Quality Stroke Does the patient have a stroke diagnosis?: No VTE Prior VTE?: No VTE Risk Level:: Surgical - high VTE Device Contraindication: N/A - Device Ordered VTE Drug Contraindication: N/A - Med Ordered
[2025-09-03 12:11] LABS: MANUAL DIFF FLAG NO
[2025-09-03 12:15] LABS: Hematocrit 41.4 % (42.0-52.0); Hemoglobin 13.7 g/dl (14.0-18.0); Imm Gran Abs Auto 0.11 X10*3/uL (0.00-0.03); Imm Gran Pct Auto 1.0 % (0.0-0.4); Lymphocytes Absolute Auto 1.6 X10*3/uL (1.2-4.9); Mean Corpuscular HGB Conc 33.1 g/dl (31.0-36.0); Mean Corpuscular Hemoglobin 29.1 pg (27.0-33.0); Mean Corpuscular Volume 88.1 fL (80.0-98.0); NRBC Abs Auto 0.000 X10*3/uL (0.0-0.012); NRBC Pct Auto 0.0 /100WBC (0.0-0.2); Red Blood Count 4.70 X10*6/uL (4.60-5.80); White Blood Count 11.1 X10*3/uL (4.8-10.8)
[2025-09-03 12:19] LABS: Platelet Count 90 X10*3/uL (160-400)
[2025-09-03 12:25] LABS: Partial Thromboplastin Time 35.8 SEC (26.7-34.1)
[2025-09-03 12:35] LABS: Anion Gap 14 (12-20); Blood Urea Nitrogen 25 mg/dL (9-16); Calcium 9.2 mg/dL (8.4-10.2); Carbon Dioxide 20 mmol/L (22-29); Chloride 102 mmol/L (96-108); Creatinine Clr Calc Pharmacy 62.6; Estimated Glomerular Filt Rate 51; Potassium 3.9 mmol/L (3.3-5.1); Sodium 132 mmol/L (135-145)
--- NOTE | 2025-09-03 13:25 | PC.NURSE ---
Report given to RN January,patient will be transferred to [facility] [place]
[2025-09-03] MEDS: PEG 3350/Na Sulf,Bicarb,Cl/KCL 4,000 ML SOLN.RECON 4000 ML PO (13:28)
--- NOTE | 2025-09-03 13:39 | PC.NURSE ---
Argatroban given to RN January in [facility] [place] transferring patient at present
[2025-09-03] MEDS: Argatroban 250 MG in 0.9 % Sodium Chloride 250 ML 6.13 MG IV (13:51)
[2025-09-03 15:41] VITALS: BP 137/90; PULSE 88; RESP 18; TEMP 36.4; O2SAT 98
--- NOTE | 2025-09-03 15:43 | PC.NURSE ---
Patient refusing Tele monitor at at this time due to frequent ambulating to bathroom while taking golytely prep. Patient educated on telemetry protocol and will re address once stools have slowed down per patient request.
[2025-09-03 16:59] LABS: Partial Thromboplastin Time 77.5 SEC (26.7-34.1)
--- NOTE | 2025-09-03 18:30 | PC.NURSE ---
Received call from the lab with PTT of 77.5, Dr. Razo notified and deferred results to hospitalist, msg sent to hospitalist but unable to verify assigned provider. Verbal result given to Dr. Colin at bedside. Per infusion protocol 77.5 within normal range. No change to infusion rate. PTT stat ordered for 1800.
[2025-09-03 19:09] LABS: Partial Thromboplastin Time 86.7 SEC (26.7-34.1)
[2025-09-03 19:23] VITALS: BP 120/84; PULSE 100; RESP 18; TEMP 37.4; O2SAT 97
[2025-09-03 21:11] LABS: Partial Thromboplastin Time 86.3 SEC (26.7-34.1)
--- NOTE | 2025-09-03 21:18 | PC.NURSE ---
remains in room in recliner, pt in bed in semi fowlers in no pparent distress resting quietly with call eubanks in reach. states needs are met and pain managed at this time. notified of therapeutic PTT, fourth ordered for 2199.
[2025-09-03 22:44] LABS: Partial Thromboplastin Time 86.1 SEC (26.7-34.1)
[2025-09-03] MEDS: Lactated Ringers 1,000 ML 80 ML IVCONT (23:57)
[2025-09-04] VITALS (14 sets, daily range): BP systolic 74–136; BP diastolic 50–91; PULSE 81–108; RESP 16–20; TEMP 36.3–36.8; O2SAT 96–99
--- NOTE | 2025-09-04 00:55 | PC.NURSE ---
Dr. Colin called asked about status of cardiac gtt and last PTT and gave a verbal order to d/c Argatroban gtt after 0300 this morning as his surgery is at 0930. I confirmed with this physician that PTT is still to be rechecked at 0600
--- NOTE | 2025-09-04 03:28 | PC.NURSE ---
argatroban gtt stopped per MD Colin
--- NOTE | 2025-09-04 03:43 | PC.NURSE ---
pt ambulated to bathroom, large continent void of urine, small amount of clear liquid stool. no symptoms/steady when ambulating. states pain to LLQ is managed at this time and declines analgesic or anxiolytic. call eubanks in reach, remains at bedside, states needs are met at this time
[2025-09-04 07:15] LABS: INTERNATIONAL NORM RATIO 1.9 (0.9-1.1); Partial Thromboplastin Time 42.7 SEC (26.7-34.1); Prothrombin Time 22.6 SEC (11.2-13.5)
--- NOTE | 2025-09-04 08:24 | HO.OSTOMY ---
Ostomy Site Marking 64yr old Male admitted to [facility] [place] on 09/01/25 14:45 -?Patient seen on Med- Tele for brief pre-operative ostomy teaching and stoma site selection/marking. 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 ?Throughout the visit the patient has several questions related to the ostomy and future care of the ostomy. ?Instruction was given on the purpose of pre-operative stoma site selection and marking: ?The importance of identifying a location within sight, avoiding creases on a relatively flat area of the abdomen, and siting within the large muscle of the abdomen for support. ?He agreed with the procedure. The patient's abdomen was visualized and palpated in the sitting, standing, bending, and lying positions. ?The margins of the rectus abdominis muscles were identified, and sites were marked in the RUQ, RLQ, LUQ and LLQ within the margins. ?The patients pant location was taken into consideration when marking. ?He has a horizontal crease above and at the umbilicus and he was marking accordingly - I also took into consideration a midline incision and marked accordingly for surgeon visibility in the OR. The sites were cleansed with alcohol prep pads before marking and marked with sterile surgical marker. ? Inpatient Ostomy Nurse will follow along via chart post surgery for timely teaching if ostomy is created. ?Thank you.
--- NOTE | 2025-09-04 08:25 | MHC.SHP ---
Pre-Procedural Eval Section A - 24 Hr Update-Section A only Date of Service: 09/04/25 The patient is an INPATIENT: Yes Changes since office visit: Yes Patient answered all questions; No Cold of Flu in the past 2 weeks, No New Medical Problems and No Changes in Medication The patient has been examined within 24 hours of the surgical procedure. The History & Physical has been completed within 30 days and I have reviewed it.: Yes Section B - Complete if H&P > 30 days Chief Complaint: diverticulitis Allergies: Allergies Allergy/AdvReac Type Severity Reaction Status Date / Time heparin Allergy Severe heparin Verified 08/28/25 10:15 induced thrombocytopenia bacitracin Allergy Unknown Verified 08/28/25 10:15 celecoxib (From Celebrex) Allergy Unknown Verified 08/28/25 10:15 cephalexin (From Keflex) Allergy Unknown Verified 08/28/25 10:15 sulfacetamide (From Allergy Unknown Verified 08/28/25 10:15 Sulfamide) sulfamethoxazole (From Allergy Unknown Verified 08/28/25 10:15 Bactrim) trimethoprim (From Bactrim) Allergy Unknown Verified 08/28/25 10:15 Plan Diagnosis/Plan: Unchanged I have reviewed the history and physical and performed a pertinent physical examination on my patient. No changes have occurred unless specified. Time Spent With Patient Time: Total time managing care of this patient today ____ minutes.
--- NOTE | 2025-09-04 08:35 | PC.NURSE ---
Patient off unit to OR
[2025-09-04] MEDS: Lactated Ringers 1,000 ML 50 ML IVCONT (08:50)
--- NOTE | 2025-09-04 09:13 | PC.NURSE ---
wound on left lower leg seen by wound clinic
--- NOTE | 2025-09-04 13:27 | W.PM.OPN ---
Operative Note Operative Note Date of Service: 09/04/25 Narrative: Preoperative diagnosis: Sigmoid diverticulitis with abscess, obstruction Postoperative diagnosis: Diverticulitis involving descending colon with abscess, small-bowel obstruction secondary to abscess Procedure: Hand assisted laparoscopic left colectomy, mobilization of splenic flexure, small-bowel resection, drainage of abscess Surgeon: Gallito Razo MD [employer] Scientist: Trish Bolden PA-C Anesthesia: General endotracheal Indications for procedure: 64-year-old male patient presenting with complaints of abdominal pain in the right lower quadrant found to have evidence of descending colon and sigmoid colon diverticulitis with microperforation, free air. Patient was treated with antibiotics a subsequently developed small bowel obstruction due to adherent loops of small bowel. He presents today for an elective colectomy of the involved descending colon and sigmoid colon and possible small-bowel resection. Operative findings: Patient found to have evidence of sigmoid diverticulitis involving the descending colon with an abscess extending into the abdominal wall laterally. Also adherent small bowel loops were noted adjacent to the abscess cavity resulting in the previously noted small bowel obstruction. Dense phlegmon was noted surrounding this. Specimen: Descending colon, small-bowel Estimated blood loss: 450 mL Complications: None Procedure details: The patient was brought to the OR and placed in a supine position. After administering general anesthesia a bilateral tap block was performed by anesthesia. A Lackey catheter was inserted and connected to a gravity bag. The patient was placed in lithotomy position. The patient's abdomen and perineum were prepped and draped in a sterile fashion. A surgical time-out was called the consent confirmed. Patient received preoperative antibiotics and Venodyne boots were in place. Local anesthesia was not used given the tap block. A lower midline incision measuring 7.5 cm was made and carried out through subcutaneous tissue through linea alba and into the peritoneum. A hand port was then inserted. Abdomen was insufflated to a pressure 15 mmHg. A camera was then inserted in the abdomen explored. A 12 mm trocar was then placed in the right upper quadrant and a 5 mm trocar placed in the left upper quadrant. Adherent loops of bowel were noted in the left lower quadrant involving the descending colon. The inherent loops were mobilized using LigaSure and sharp dissection with an endo Shear. There was extensive adhesions surrounding the abscess which took a significant amount of time to mobilize. With the small bowel was fully mobilized, the sigmoid colon and descending colon was mobilized up to the splenic flexure. The splenic flexure was then mobilized as well. When completed attention was then directed to the descending colon which was densely adherent to the sidewall. This was mobilized off the sidewall and an abscess into the abdominal wall identified. This was fully mobilized in the abscess drained. A distal line of resection was identified with normal-appearing bowel. The mesentery was divided below the bowel and a Endo-BI 60 stapler used to divide the bowel. LigaSure was then used to divide the mesentery proceeding proximally beyond the area of perforation. A proximal line of resection was identified. The mesentery was divided and bowel divided using an Endo-BI 60 stapler. The specimen was then removed and sent to pathology for further examination. The proximal bowel was further mobilized along the splenic flexure and transverse colon to allow to be anastomosed to the proximal sigmoid colon. Attention was then directed to the loop of small bowel which had an abscess cavity within the center of this loop. The decision was made to perform a small-bowel resection of this affected loop. Proximal and distal loops of bowel were divided using an Endo-BI stapler. A functional end-to-end anastomosis was then performed using an Endo-BI stapler to create a end-to-end anastomosis. The enterotomies were then closed using a TA stapler. This was then reinforced using interrupted 3-0 silk sutures in a Lembert fashion. The crotch of the anastomosis was also reinforced using 3-0 silk sutures. This was returned to the abdominal cavity and a functional end-to-end anastomosis of the proximal descending colon and sigmoid colon was then performed again using an Endo-BI stapler to create anastomosis between the 2 loops of bowel. The colotomy was then closed using a TA stapler. This staple line was then reinforced using Lembert 3-0 silk sutures. The bowel was returned to the abdominal cavity. Wounds were then irrigated thoroughly intra-abdominally and checked for hemostasis. A small amount of Surgicel was applied to the abscess cavity for hemostasis. A large Italo-Gale drain was then placed in the abscess cavity and brought out through the lateral port site in the left side. This was secured to the skin using a 2-0 nylon suture. CO2 was then evacuated and all trocars removed. Fascia was closed in the lower midline using a running 0 PDS suture. Dermis was reapproximated using interrupted 3-0 Polysorb sutures. Skin was closed in all sites using skin keisha. Sterile dressings were then applied. The patient tolerated the procedure well. Sponge, instrument, and needle counts reported as correct. The patient was transferred to PACU in stable condition.
--- NOTE | 2025-09-04 14:25 | PC.NURSE ---
Patient back in the room from OR s/p Lap Sigmoid resection, A&Ox4, reports pain, abdominal incision covered, dressing cdi, ALAN drain draining dark red fluid. Lackey catheter in place.
--- NOTE | 2025-09-04 14:43 | MHC.CM.PN ---
EMR REVIEWED, SURGERY COMPLETED TODAY, LAP ELFT COLECTOMY, SMALL BOWEL RESECTION, DRAINAGE OF ABSCESS, ANTIC PT WILL REMAIN INPT THROUGH EARLY NEXT WEEK, PT HAD PREVIOUSLY DECLINED [facility] SERVICES, CM WILL CONT TO FOLLOW DC NEEDS.
[2025-09-04] MEDS: oxyCODONE HCl Immed Release 5 MG TABLET PO ×2 (15:46→22:30)
[2025-09-04 17:04] LABS: Glucose, Whole Blood 168 mg/dL (60-115)
--- NOTE | 2025-09-04 18:20 | PC.NURSE ---
Patient BP 88/55, recheck manual 74/50, patient presents diaphoretic and c/o lightheadedness, provider notified, bolus NS 500ml infused, manual recheck of BP 82/58, provider notified, order to increase LR to 125ml/hr. Patient report feeling better after the bolus. Requesting medication for pain, oxycodone 5mg administered with good affect.
[2025-09-04] MEDS: oxyCODONE HCl Immed Release 5 MG TABLET 10 MG PO (19:17)
[2025-09-04] MEDS: Lactated Ringers 1,000 ML 125 ML IVCONT (19:19)
--- NOTE | 2025-09-04 19:26 | PC.NURSE ---
Patient's reported bleeding around ALAN drain, upon assessment, dressing saturated in blood around ALAN drain noted, provider notified, ALAN drain emptied for 30cc of bright red blood. Per provider dressing to be changed around ALAN as needed.
[2025-09-04] MEDS: 0.9 % Sodium Chloride Flush 3 ML SYRINGE IVFLUSH (22:31)
[2025-09-05] VITALS (10 sets, daily range): BP systolic 120–130; BP diastolic 80–87; PULSE 88–100; RESP 16–18; TEMP 36.5–36.9; O2SAT 95–97
[2025-09-05] MEDS: oxyCODONE HCl Immed Release 5 MG TABLET 10 MG PO ×2 (00:24→05:57)
[2025-09-05] MEDS: Lactated Ringers 1,000 ML 125 ML IVCONT ×3 (02:47→23:41)
[2025-09-05] MEDS: oxyCODONE HCl Immed Release 5 MG TABLET PO ×3 (02:56→14:11)
[2025-09-05 07:39] LABS: MANUAL DIFF FLAG NO
[2025-09-05 07:46] LABS: Hematocrit 25.4 % (42.0-52.0); Hemoglobin 8.3 g/dl (14.0-18.0); Imm Gran Abs Auto 0.21 X10*3/uL (0.00-0.03); Imm Gran Pct Auto 1.5 % (0.0-0.4); Lymphocytes Absolute Auto 1.1 X10*3/uL (1.2-4.9); Mean Corpuscular HGB Conc 32.7 g/dl (31.0-36.0); Mean Corpuscular Hemoglobin 28.8 pg (27.0-33.0); Mean Corpuscular Volume 88.2 fL (80.0-98.0); NRBC Abs Auto 0.000 X10*3/uL (0.0-0.012); NRBC Pct Auto 0.0 /100WBC (0.0-0.2); Red Blood Count 2.88 X10*6/uL (4.60-5.80); White Blood Count 13.9 X10*3/uL (4.8-10.8)
[2025-09-05 07:47] LABS: Platelet Count 87 X10*3/uL (160-400)
[2025-09-05 08:25] LABS: Anion Gap 13 (12-20); Blood Urea Nitrogen 33 mg/dL (9-16); Calcium 8.2 mg/dL (8.4-10.2); Carbon Dioxide 21 mmol/L (22-29); Chloride 102 mmol/L (96-108); Creatinine Clr Calc Pharmacy 46.2; Estimated Glomerular Filt Rate 36; Potassium 4.9 mmol/L (3.3-5.1); Sodium 131 mmol/L (135-145)
[2025-09-05 09:16] LABS: INTERNATIONAL NORM RATIO 1.4 (0.9-1.1); Prothrombin Time 17.2 SEC (11.2-13.5)
--- NOTE | 2025-09-05 09:38 | P.PNGS_ITS ---
Subjective Subjective Date of Service: 09/05/25 Interval history: POD 1 following hand assisted laparoscopic left colectomy and small-bowel resection for diverticulitis with abscess. The patient did better with p.o. oxycodone then IV meds. No flatus or BM reported. Some bleeding from ALAN site. Physical Exam 2 Vital Signs: Vital Signs: Last Vital Signs Temp 98 F 09/05/25 07:54 Pulse 95 09/05/25 07:54 Resp 18 09/05/25 07:54 BP 126/85 09/05/25 07:54 Pulse Ox 95 09/05/25 07:54 O2 Del Method Room Air 09/05/25 07:54 O2 Flow Rate 2 09/04/25 13:45 BMI result Body Mass Index 33.9 Const: General: well developed Nutritional Appearance: well nourished O rientation/consciousness: patient oriented x3 Limitations: no limitations Resp: Effort & Inspection: normal respiratory effort GI: Other: Distended, incisions clean and intact. ALAN with some bloody discharge from the incision site. Output is mostly sanguinous, no clotting approximately 60 mL recorded. Neuro: General: patient oriented x3 Extrem: Other: No edema. Objective Data Active Medications Acetaminophen (Acetaminophen 325 Mg Tablet) 650 mg PO Q6H PRN PRN Reason: Pain, Mild 1-3,fever,headache Last Admin: 09/02/25 19:44 Dose: 650 mg Documented By: BRONWYN Al Hydroxide/Mg Hydroxide (Magnesium Hydrox/Alum Hydrox 30 Ml Oral.Susp) 30 ml PO Q4H PRN PRN Reason: Heartburn Albuterol Sulfate (Albuterol Sulfate 90 Mcg 8 Gm Inhaler) 2 puff INHALE Q6H PRN PRN Reason: Shortness Of Breath Or Wheezing Calcium Carbonate (Calcium Carbonate 750 Mg Tab.Chew) 750 mg PO Q4H PRN PRN Reason: Heartburn Fluticasone Propionate (Fluticasone Propionate Nasal 16 Gm [place]) 1 spray NOSTRIL-B DAILY PRN PRN Reason: Allergy Symptoms Furosemide (Furosemide 20 Mg Tablet) 20 mg PO DAILY JONATHAN; Protocol Last Admin: 09/05/25 08:32 Dose: 20 mg Documented By: ALFONSOCIAV Cefepime HCl 1 gm/ Sodium (Chloride) 50 mls @ 100 mls/hr IV Q12H JONATHAN Last Infusion: 09/05/25 00:40 Dose: Infused Documented By: MYRANDA Lactated Ringer's (Lr) 1,000 mls @ 125 mls/hr IVCONT .Q8H [facility] Last Admin: 09/05/25 02:47 Dose: 125 mls/hr Documented By: MYRANDA Loratadine (Loratadine 10 Mg Tablet) 10 mg PO DAILY [facility] Last Admin: 09/05/25 08:33 Dose: 10 mg Documented By: KETURAH Losartan Potassium (Losartan Potassium 50 Mg Tablet) 100 mg PO DAILY [facility]; Protocol Last Admin: 09/05/25 08:33 Dose: 100 mg Documented By: KETURAH Magnesium Hydroxide (Milk Of Magnesia 30 Ml Oral.Susp) 30 ml PO DAILY PRN PRN Reason: Constipation Melatonin (Melatonin 3 Mg Tablet) 6 mg PO BEDTIME PRN PRN Reason: Insomnia Metronidazole (Metronidazole 500 Mg Tablet) 500 mg PO Q8H [facility] Last Admin: 09/05/25 02:47 Dose: 500 mg Documented By: MYRANDA Naloxone HCl (Naloxone Hcl 0.4 Mg/Ml Vial) 0.2 mg IVPUSH Q2M PRN PRN Reason: Excessive sedation or RR < 8 Omeprazole (Omeprazole 20 Mg Capsule.) 20 mg PO SUTUTHSA@0630 [facility] Last Admin: 09/05/25 05:57 Dose: 20 mg Documented By: MYRANDA Ondansetron HCl (Ondansetron Hcl 4 Mg/2 Ml Vial) 4 mg IVPUSH Q8H PRN PRN Reason: Nausea and Vomiting Oxycodone HCl (Oxycodone Hcl Immed Release 5 Mg Tablet) 10 mg PO Q4H PRN PRN Reason: Pain, Severe (Pain Scale 7-10) Last Admin: 09/05/25 05:57 Dose: 10 mg Documented By: MYRANDA Oxycodone HCl (Oxycodone Hcl Immed Release 5 Mg Tablet) 5 mg PO Q4H PRN PRN Reason: Pain, Moderate(Pain Scale 4-6) Last Admin: 09/05/25 08:35 Dose: 5 mg Documented By: KETURAH Sodium Chloride (0.9 % Sodium Chloride Flush 3 Ml Syringe) [facility] Last Admin: 09/04/25 22:31 Dose: 3 ml Documented By: MYRANDA Trazodone HCl (Trazodone Hcl 50 Mg Tablet) 50 mg PO DAILY PRN PRN Reason: Insomnia Vitamin D (Cholecalciferol (Vitamin D3) 25 Mcg Tablet) 100 mcg PO DAILY JONATHAN Last Admin: 09/05/25 08:32 Dose: 100 mcg Documented By: KETURAH Labs 09/05/25 07:18 09/05/25 07:18 Labs: Laboratory Results - last 24 hr 09/04/25 09/05/25 16:59 07:18 MCV 88.2 MCH 28.8 MCHC 32.7 RDW 14.5 Plt Count 87 L MPV 10.5 Immature Gran % (Auto) 1.5 H Neut % (Auto) 83.7 H Lymph % (Auto) 8.2 L [place] % (Auto) 6.5 Eos % (Auto) 0.0 Baso % (Auto) 0.1 Lymph # (Auto) 1.1 L [place] # (Auto) 0.9 Eos # (Auto) 0.0 Baso # (Auto) 0.0 Abs Immat Gran (auto) 0.21 H Absolute Neuts (auto) 11.6 H Absolute Nucleated RBC 0.000 Nucleated RBC % (auto) 0.0 PT 17.2 H D INR 1.4 H Anion Gap 13 Estim Creat Clear Calc 46.2 Estimated GFR 36 POC Glucose 168 H Random Glucose 128 H Calcium 8.2 L D Procedures Date of Service Date of Service: 09/05/25 Progress Note: A&P Assessment and plan (1) Anti-phospholipid antibody syndrome: Status: Acute Assessment and Plan: Discussed with Dr. Colin this morning. H&H has dropped and he does have some oozing from the ALAN site. We will plan on restarting argatroban tomorrow. We will recheck coags in a.m. (2) Diverticulitis of large intestine with complication: Status: Acute Assessment and Plan: POD 1 following hand assisted laparoscopic left colectomy and small-bowel resection for diverticular abscess. Overall patient is doing well with the expected drop in H&H from surgical procedure and IV hydration. Encouraged out of bed and ambulation. Encourage incentive spirometry. We will keep at clear liquids for now. Recheck labs in a.m.. Time Spent With Patient Time: Total time managing care of this patient today ____ minutes. Quality Stroke Does the patient have a stroke diagnosis?: No VTE Prior VTE?: No VTE Risk Level:: Surgical - high VTE Device Contraindication: N/A - Device Ordered VTE Drug Contraindication: N/A - Med Ordered
[2025-09-05] MEDS: 0.9 % Sodium Chloride Flush 3 ML SYRINGE IVFLUSH ×2 (11:07→16:20)
--- NOTE | 2025-09-05 14:37 | PM.HEMONCPN ---
Medical Summary - Medical Summary Date of Service: 09/05/25 Chief complaint: Follow-up for antiphospholipid antibody. Received argatroban. Primary Care Provider: Jeremías Knox MD Medical Summary: DIAGNOSIS: Antiphospholipid antibody syndrome. On warfarin. Associate Creative Director Utilized?: No - Lithuanian Speaking Interval History Interval history: Alejandro Correa is a 64 year old gentleman, DAY 1 post op. He is holding stable. GI:Distended, incisions clean and intact. ALAN with some bloody discharge from the incision site. Output is mostly sanguinous, no clotting approximately 60 mL recorded. PRESENTING HISTORY: PMH significant for antiphospholipid syndrome on Coumadin, hypertension. He was [place] [facility] [place] for perforated diverticulitis managed nonoperatively with IV abx. He subsequently developed a SBO as he had a loop of small bowel that appeared to be tethered to the area of diverticulitis. He required an NGT for decompression and bowel rest and PPN and this eventually resolved. His coumadin was held during this time for possible surgical intervention and he was bridged with heparin drip. He however had a significant drop in his platelets during this time and the heparin was stopped with concern for HIT. They decided to resume his coumadin alone to bring INR up, given plat still low. His diverticulitis improved with supportive measures and he was discharged on a course of Augmentin. He was seen in the office on 08/28/25, by Gosia. At this time he reported intermittent fevers with highest of 101 a few days following discharge. He had doxycycline at home from previous treatment of his pyoderma gangrenosum of his left leg which he started taking. His fevers began to improve. His augmentin was also extended. He now reports his temp is 99 and he takes it multiple times throughout the day. He reports loose stools every few hours throughout the day. He has some occasional nausea and his appetite is diminished. He also reports continued LLQ and suprapubic pain. He still needs to take oxycodone which he tries to limit to just nighttime as he is not sleeping well. He had been taking tylenol 1000mg q6h but decreased his dosing. He was found to have an INR of 5.5. at his coumadin clinic at [facility] and his coumadin was adjusted with improvement. On his last lab work, his WBC count was improved to 14 and platelets were up to 129. His symptoms were presumed secondary to the diverticulitis. Due to severity of symptoms, it was recommended to proceed with hand assisted laparoscopic sigmoid resection, possible ostomy on a more urgent basis. He has been scheduled for 09/04/25. He is coumadin therapy and this will need to be held. Due to his recent admission with thrombocytopenia on heparin and concern for HI. He will need close monitoring and frequent labs while his coumadin is held in preparation for surgery and is bridged with Argatroban and he is now being admitted to facilitate this. He reports continued symptoms with no significant improvement in his pain, nausea or loose stools. He just had his PICC line placed in his right arm. He states he has not taken any of his medication today including his coumadin. Medical History:) Antiphospholipid syndrome. Pyoderma gangrenosum Social History: Living Situation History: Household Members: Spouse Housing: House Do you presently have visiting nurse or other home services: No Alcohol History Details: 1. How often do you have a drink containing alcohol?: b. Monthly or less 2. How many drinks containing alcohol do you have on a typical day when you are drinking?: a. 1 or 2 Review of Systems - Neurologic Reports system reviewed and no additional complaints, except as documented, Denies confusion, Denies headache(s) [facility] Medical History: Medical History (Last Reviewed 09/09/25 @ 15:01 by Feng Gracia MD) Antiphospholipid syndrome Onset Date: Unknown Pyoderma gangrenosum Functional capacity: wheelchair bound Surgical History: Surgical History (Last Reviewed 09/09/25 @ 15:01 by Feng Gracia MD) H/O right inguinal hernia repair Social History: Social History (Last Reviewed 09/09/25 @ 15:01 by Feng Gracia MD) Living Situation History: Household Members: Spouse Housing: House Do you presently have visiting nurse or other home services: No Tobacco History: Patient Tobacco Use Status: Never used Tobacco Advance Directives: Advance Directives Date on File: 08/19/25 Occupation Assessmet: service: No Home Medications and Allergies Current Medications: Current Medications Acetaminophen (Acetaminophen 325 Mg Tablet) 650 mg PO Q6H PRN PRN Reason: Pain, Mild 1-3,fever,headache Last Admin: 09/02/25 19:44 Dose: 650 mg Al Hydroxide/Mg Hydroxide (Magnesium Hydrox/Alum Hydrox 30 Ml Oral.Susp) 30 ml PO Q4H PRN PRN Reason: Heartburn Albuterol Sulfate (Albuterol Sulfate 90 Mcg 8 Gm Inhaler) 2 puff INHALE Q6H PRN PRN Reason: Shortness Of Breath Or Wheezing Calcium Carbonate (Calcium Carbonate 750 Mg Tab.Chew) 750 mg PO Q4H PRN PRN Reason: Heartburn Fluticasone Propionate (Fluticasone Propionate Nasal 16 Gm [place]) 1 spray NOSTRIL-B DAILY PRN PRN Reason: Allergy Symptoms Furosemide (Furosemide 20 Mg Tablet) 20 mg PO DAILY [facility]; Protocol Last Admin: 09/05/25 08:32 Dose: 20 mg Hydromorphone HCl (Hydromorphone Hcl 1 Mg/Ml Syringe) 0.5 mg IVPUSH Q4H PRN; Protocol PRN Reason: Pain, Severe (Pain Scale 7-10) Last Admin: 09/05/25 11:03 Dose: 0.5 mg Cefepime HCl 1 gm/ Sodium (Chloride) 50 mls @ 100 mls/hr IV Q12H [facility] Last Admin: 09/05/25 14:08 Dose: 100 mls/hr Lactated Ringer's (Lr) 1,000 mls @ 125 mls/hr IVCONT .Q8H [facility] Last Admin: 09/05/25 10:50 Dose: 125 mls/hr Loratadine (Loratadine 10 Mg Tablet) 10 mg PO DAILY [facility] Last Admin: 09/05/25 08:33 Dose: 10 mg Losartan Potassium (Losartan Potassium 50 Mg Tablet) 100 mg PO DAILY [facility]; Protocol Last Admin: 09/05/25 08:33 Dose: 100 mg Magnesium Hydroxide (Milk Of Magnesia 30 Ml Oral.Susp) 30 ml PO DAILY PRN PRN Reason: Constipation Melatonin (Melatonin 3 Mg Tablet) 6 mg PO BEDTIME PRN PRN Reason: Insomnia Metronidazole (Metronidazole 500 Mg Tablet) 500 mg PO Q8H [facility] Last Admin: 09/05/25 10:51 Dose: 500 mg Naloxone HCl (Naloxone Hcl 0.4 Mg/Ml Vial) 0.2 mg IVPUSH Q2M PRN PRN Reason: Excessive sedation or RR < 8 Omeprazole (Omeprazole 20 Mg Capsule.) 20 mg PO SUTUTHSA@0630 [facility] Last Admin: 09/05/25 05:57 Dose: 20 mg Ondansetron HCl (Ondansetron Hcl 4 Mg/2 Ml Vial) 4 mg IVPUSH Q8H PRN PRN Reason: Nausea and Vomiting Oxycodone HCl (Oxycodone Hcl Immed Release 5 Mg Tablet) 5 mg PO Q4H PRN PRN Reason: Pain, Moderate(Pain Scale 4-6) Last Admin: 09/05/25 14:11 Dose: 5 mg Sodium Chloride (0.9 % Sodium Chloride Flush 3 Ml Syringe) 3 ml IVFLUSH QSHIFT [facility] Last Admin: 09/05/25 11:07 Dose: 3 ml Trazodone HCl (Trazodone Hcl 50 Mg Tablet) 50 mg PO DAILY PRN PRN Reason: Insomnia Vitamin D (Cholecalciferol (Vitamin D3) 25 Mcg Tablet) 100 mcg PO DAILY [facility] Last Admin: 09/05/25 08:32 Dose: 100 mcg Home Medications ?Medication ?Instructions ?Recorded ?Confirmed ?Type Tumeric 500 mg PO DAILY 08/10/25 09/01/25 History albuterol sulfate 90 mcg/actuation 2 inh inhalation Q6H PRN Shortness 08/10/25 09/01/25 History breath activated powder inhaler Of Breath Or Wheezing cetirizine 10 mg tablet 10 mg PO DAILY 08/10/25 09/01/25 History cholecalciferol (vitamin D3) 25 100 mcg PO DAILY 08/10/25 09/01/25 History mcg (1,000 unit) chewable tablet (Vitamin D3) clobetasol 0.05 % topical cream 1 g topical DAILY 08/10/25 09/01/25 History fluticasone propionate 50 1 spray intranasal DAILY PRN 08/10/25 09/01/25 History mcg/actuation nasal Allergy Symptoms spray,suspension furosemide 40 mg tablet 40 mg PO DAILY 08/10/25 09/01/25 History losartan 100 mg tablet 100 mg PO DAILY 08/10/25 09/01/25 History omeprazole 20 mg capsule,delayed 20 mg PO SUTUTHSA@0630 08/10/25 09/01/25 History release trazodone 50 mg tablet 50 mg PO DAILY PRN Insomnia 08/10/25 09/01/25 History warfarin 5 mg tablet 5 mg PO SUTUTHSA 08/10/25 09/01/25 History warfarin 5 mg tablet 10 mg PO MOWEFR 08/10/25 09/01/25 History Allergies Allergy/AdvReac Type Severity Reaction Status Date / Time heparin Allergy Severe heparin Verified 08/28/25 10:15 induced thrombocytopenia bacitracin Allergy Unknown Verified 08/28/25 10:15 celecoxib (From Celebrex) Allergy Unknown Verified 08/28/25 10:15 cephalexin (From Keflex) Allergy Unknown Verified 08/28/25 10:15 sulfacetamide (From Allergy Unknown Verified 08/28/25 10:15 Sulfamide) sulfamethoxazole (From Allergy Unknown Verified 08/28/25 10:15 Bactrim) trimethoprim (From Bactrim) Allergy Unknown Verified 08/28/25 10:15 Exam Vital signs: Vital Signs Temp 98 F 09/05/25 07:54 Pulse 95 09/05/25 07:54 Resp 18 09/05/25 07:54 BP 126/85 09/05/25 07:54 Pulse Ox 95 09/05/25 07:54 O2 Del Method Room Air 09/05/25 07:54 O2 Flow Rate 2 09/04/25 13:45 Intake & Output 09/04/25 09/05/25 09/05/25 18:59 06:59 18:59 Intake Total 3392.333 / 4740.249 1347.916 / 4740.249 1480 / 1480 Output Total 595 / 595 110 / 110 Balance 3392.333 / 4145.249 752.916 / 4145.249 1370 / 1370 Urine Output (Average ml/kg/hr) 0.41 0.09 Intake: Intake, Oral Amount 0 / 250 250 / 250 480 / 480 IV Intake, Intraoperative 1750 / 1750 Amount Intake, IV Amount 1642.333 / 2740.249 1097.916 / 2740.249 1000 / 1000 0.9 % Sodium Chloride 500 ml @ 500 / 500 500 mls/hr IV .Q1H JONATHAN Rx#: [id number] Argatroban 250 mg In 0.9 % 0 / 0 Sodium Chloride 250 ml @ 1 MCG/ KG/MIN 6.127 mls/hr IV .Q24H JONATHAN Rx#:[id number] cefEPime HCl 1 gm In 0.9 % 50 / 50 Sodium Chloride 50 ml @ 100 mls /hr IV Q12H JONATHAN Rx#:[id number] Lactated Ringers 1,000 ml @ 125 1142.333 / 2190.249 1047.916 / 2190.249 1000 / 1000 mls/hr IVCONT .Q8H JONATHAN Rx#: [id number] Output: Output, Urine Amount 110 / 110 Output, Tube Amount 95 / 95 ALAN Drain 95 / 95 Output, Urine Amount (Catheter) 500 / 500 Urethral 500 / 500 Other: NPO Yes Breakfast % Eaten 50% Lunch % Eaten 0% Number of Unmeasured Voids 1 Urine Bathroom Urinal Urine Color concentrat Yellow Last Bowel Movement 09/04/25 09/04/25 Weight 101.1 kg BMI result Body Mass Index 33.9 - Constitutional Present: mild distress - Routine HEENT Exam Head: Present: normal inspection, normocephalic Eye: Present: normal appearance ENT: Present: mucous membranes moist - Routine Neck Exam Present: full ROM - Routine Respiratory Exam Present: CTAB - Routine Cardiovascular Exam Cardiovascular: Present: RRR, S1, S2 - Routine Abdominal Exam Present: soft, nontender - Routine Extremities Exam Present: nontender - Routine Back/Spine/Pelvis Exam Back/Spine: Present: full ROM - Routine Skin Exam Present: intact - Routine Neurological Exam Present: alert, oriented X3 - Routine Psychiatric Exam Present: normal affect Data - Labs CBC & Chem 7: 09/11/25 06:55 09/11/25 06:55 Labs: Laboratory Last Values WBC 13.9 X10*3/uL (4.8-10.8) H 09/05/25 07:18 RBC 2.88 X10*6/uL (4.60-5.80) L D 09/05/25 07:18 Hgb 8.3 g/dl (14.0-18.0) L D 09/05/25 07:18 Hct 25.4 % (42.0-52.0) L D 09/05/25 07:18 MCV 88.2 fL (80.0-98.0) 09/05/25 07:18 MCH 28.8 pg (27.0-33.0) 09/05/25 07:18 MCHC 32.7 g/dl (31.0-36.0) 09/05/25 07:18 RDW 14.5 % (11.0-16.0) 09/05/25 07:18 Plt Count 87 X10*3/uL (160-400) L 09/05/25 07:18 MPV 10.5 fL (9.4-12.4) 09/05/25 07:18 Immature Gran % (Auto) 1.5 % (0.0-0.4) H 09/05/25 07:18 Neut % (Auto) 83.7 % (45-73) H 09/05/25 07:18 Lymph % (Auto) 8.2 % (20-40) L 09/05/25 07:18 Routt % (Auto) 6.5 % (2-11) 09/05/25 07:18 Eos % (Auto) 0.0 % (0-4) 09/05/25 07:18 Baso % (Auto) 0.1 % (0-2) 09/05/25 07:18 Lymph # (Auto) 1.1 X10*3/uL (1.2-4.9) L 09/05/25 07:18 Routt # (Auto) 0.9 X10*3/uL (0.1-1.2) 09/05/25 07:18 Eos # (Auto) 0.0 X10*3/uL (0.0-0.4) 09/05/25 07:18 Baso # (Auto) 0.0 X10*3/uL (0.0-0.2) 09/05/25 07:18 Abs Immat Gran (auto) 0.21 X10*3/uL (0.00-0.03) H 09/05/25 07:18 Absolute Neuts (auto) 11.6 x10*3/uL (2.0-8.3) H 09/05/25 07:18 Absolute Nucleated RBC 0.000 X10*3/uL (0.0-0.012) 09/05/25 07:18 Nucleated RBC % (auto) 0.0 /100WBC (0.0-0.2) 09/05/25 07:18 Hold Purple Top SEE NOTE 09/04/25 06:27 PT 17.2 SEC (11.2-13.5) H D 09/05/25 07:18 INR 1.4 (0.9-1.1) H 09/05/25 07:18 APTT 42.7 SEC (26.7-34.1) H D 09/04/25 06:27 Hold Blue Top SEE NOTE 09/03/25 08:51 Sodium 131 mmol/L (135-145) L 09/05/25 07:18 Potassium 4.9 mmol/L (3.3-5.1) D 09/05/25 07:18 Chloride 102 mmol/L (96-108) 09/05/25 07:18 Carbon Dioxide 21 mmol/L (22-29) L 09/05/25 07:18 Anion Gap 13 (12-20) 09/05/25 07:18 BUN 33 mg/dL (9-16) H 09/05/25 07:18 Creatinine 1.91 mg/dL (0.5-1.4) H 09/05/25 07:18 Estim Creat Clear Calc 46.2 09/05/25 07:18 Estimated GFR 36 09/05/25 07:18 POC Glucose 168 mg/dL (60-115) H 09/04/25 16:59 Random Glucose 128 mg/dL (60-115) H 09/05/25 07:18 Calcium 8.2 mg/dL (8.4-10.2) L D 09/05/25 07:18 Total Bilirubin 0.8 mg/dL (0.0-1.0) 09/02/25 10:05 Direct Bilirubin 0.3 mg/dL (0.0-0.5) 09/02/25 10:05 AST 42 U/L (5-37) H 09/02/25 10:05 ALT 97 U/L (0-40) H 09/02/25 10:05 Alkaline Phosphatase 159 U/L (39-117) H 09/02/25 10:05 Total Protein 7.5 g/dL (6.5-8.0) 09/02/25 10:05 Albumin 3.5 g/dL (3.5-5.0) 09/02/25 10:05 C. difficile Tox B Gene NEGATIVE (Negative) 09/02/25 00:05 Blood Type O Negative 09/03/25 16:00 Antibody Screen NEGATIVE 09/03/25 16:00 - Imaging Radiologist's impression: ITS Impressions PICC Line Insertion 09/01/25 13:03 IMPRESSION: Placement of a 5 fr 47 cm, dual lumen power PICC PLAN: -The catheter may be used immediately. This procedure was performed by Femi Jones NP, and directly supervised by Dilshad Sweet M.D. Electronically signed by: Dilshad Sweet MD 09/02/2025 07:34 AM [facility] Workstation: [id number] Assessment and Plan Patient Active problem list reviewed?: Yes (1) Anti-phospholipid antibody syndrome Status: Acute Assessment and plan: This is a 64-year-old gentleman, who was recently [place] [facility] [place] for perforated diverticulitis managed nonoperatively with IV abx. He subsequently developed a SBO as he had a loop of small bowel that appeared to be tethered to the area of diverticulitis. He required an NGT for decompression and bowel rest and PPN and this eventually resolved. His coumadin was held during this time for possible surgical intervention and he was bridged with heparin drip. He however had a significant drop in his platelets during this time and the heparin was stopped with concern for HIT. They decided to resume his coumadin alone to bring INR up, given plat still low. His diverticulitis improved with supportive measures and he was discharged on a course of Augmentin. He was admitted for small bowel obstruction, perforated diverticulitis who was noted to have acute worsening of chronic thrombocytopenia. On his previous admission to the hospital his platelets were 60 K and gradually they have declined to 41 K. The decline in platelet count is not consistent with heparin induced thrombocytopenia or HIT. He scores zero points on the 4 T-score, therefore low risk. Decline in platelets was more likely related to underlying infection and use of antibiotics. His past medical history significant for triple positive antiphospholipid antibody syndrome. He was diagnosed with left lower extremity DVT nearly 20 years ago. He has been on warfarin ever since and managed by aquaculture program director at [facility]. He has never had a recurrence of DVT. Although he was not aware of thrombocytopenia in the past, he did show me his labs on his portal from [facility] from a year ago. At that time, his platelets have ranged from 70-100 K. Patient was restarted on warfarin. He had recent symptoms secondary to the diverticulitis. Due to severity of symptoms, hand assisted laparoscopic sigmoid resection, possible ostomy on was recommended, on an urgent basis. He underwent procedure yesterday 09/04/25. He is coumadin therapy was held. Due to his recent admission with thrombocytopenia on heparin and concern for HIT. He was bridged with Argatroban. INR from 09/01: 3.3. 09/02: 2.6. The argatroban was not started since INR was therapeutic INR from 09/03: 1.7. It was started on 09/03. Held 6 hours prior to surgery. Surgery went well. He is recuperating. Database: WBC 13.9, HGB 8.3, platelets 87. PT 1.4. IMP: He has had some serosanguineous drainage from the drain. His hemoglobin went down to 8.3. Platelets 87. Patient reported 10/10 abdominal pain, in the evening and noted to have marked abdominal distention by nursing staff. BP 127/85, pulse 99 CAT scan of the abdomen and pelvis revealed: Recent postop changes described above with multifocal hemoperitoneum. Transfused 2 units PRBCs and 1 unit platelets Keep NPO with IV fluid PLAN: Will hold off starting the argatroban for another 24 hours. Will then start it, as long as the hemoglobin stabilizes. He will then be restarted on his warfarin. He will continue to be closely monitoring. Thanks for the consult, CC: Dr. Delfino Knox. - Time Spent With Patient Time Spent with Patient (in minutes): 25
[2025-09-05 16:12] LABS: MANUAL DIFF FLAG NO
[2025-09-05 16:18] LABS: Imm Gran Abs Auto 0.17 X10*3/uL (0.00-0.03); Imm Gran Pct Auto 1.4 % (0.0-0.4); Lymphocytes Absolute Auto 1.1 X10*3/uL (1.2-4.9); Mean Corpuscular HGB Conc 32.3 g/dl (31.0-36.0); Mean Corpuscular Hemoglobin 29.0 pg (27.0-33.0); Mean Corpuscular Volume 89.9 fL (80.0-98.0); NRBC Abs Auto 0.000 X10*3/uL (0.0-0.012); NRBC Pct Auto 0.0 /100WBC (0.0-0.2); Red Blood Count 2.17 X10*6/uL (4.60-5.80); White Blood Count 11.9 X10*3/uL (4.8-10.8)
[2025-09-05 16:27] LABS: Platelet Count 69 X10*3/uL (160-400)
[2025-09-05 16:28] LABS: Hematocrit 19.5 % (42.0-52.0); Hemoglobin 6.3 g/dl (14.0-18.0)
[2025-09-05 16:39] LABS: INTERNATIONAL NORM RATIO 1.4 (0.9-1.1); Prothrombin Time 16.6 SEC (11.2-13.5)
--- NOTE | 2025-09-05 17:43 | PM.EVENT ---
Event Note Date of Service: 09/05/25 Event Note: Patient reporting 10/10 abdominal pain this evening and noted to have marked abdominal distention by nursing staff. BP 127/85, pulse 99 Awake and alert Breathing comfortably on room air Abdomen distended, tympanitic, ALAN site with bloody discharge, sanguinous output in drain Skin pale Stat labs WBC 11.9, H/H 6.3/19.5, platelets [address] abdomen and pelvis official read pending. My evaluation does reveal some blood long dissection planes and in pelvis. Dilated loops of small bowel and colon noted with air-fluid levels suggestive of postoperative changes. Discussed plan with the patient: Transfused 2 units PRBCs and 1 unit platelets Keep NPO with IV fluid Recheck labs in a.m.. Time Spent With Patient Time: Total time managing care of this patient today ____ minutes.
[2025-09-06] VITALS (12 sets, daily range): BP systolic 121–154; BP diastolic 86–99; PULSE 90–106; RESP 18–20; TEMP 36.6–37.1; O2SAT 92–98
[2025-09-06] MEDS: 0.9 % Sodium Chloride Flush 3 ML SYRINGE IVFLUSH ×2 (01:56→07:40)
[2025-09-06] MEDS: oxyCODONE HCl Immed Release 5 MG TABLET PO ×2 (02:00→06:00)
--- NOTE | 2025-09-06 04:28 | PC.NURSE ---
Addendum entered by Rashad Kaba RN 09/06/25 07:19: Increased output this morning from VINNIE drain, 60ml of brb and dressing saturated. Patient had no sleep last night. Addendum entered by Rashad Kaba RN 09/06/25 05:50: Held off on Plasma for now, pt reports MD told him he wasnt going to transfuse plasma. Will speak with MD in the morning. Original Note: No new events overnight, patient reports feeling like his abdominal distention is getting worse, difficult to assess. Abdomen is large, round, soft, with hyperactive bowel sounds. Not passing flatus and very little belching. Occasional hiccups. Waves of nausea. Medicating with Dilaudid every 4 hours for pain control and zofran for nausea. Continues to get iv fluids and received 2U PRBC's and one unit of platelets tonight. Patient afraid to move much or get oob because he doesnt want to cause any damage and he is in too much pain. VINNIE continues to ooze BRB around insertion site, changed dressing 3 times last night d/t saturation. <100ml from vinnie drain sanguinous fluid. Original midline dressing c/d/i. Vital remain stable. Patient limiting fluids, eating ice.
[2025-09-06] MEDS: Lactated Ringers 1,000 ML 125 ML IVCONT (06:01)
[2025-09-06 07:53] LABS: MANUAL DIFF FLAG NO
[2025-09-06 07:57] LABS: Hematocrit 27.3 % (42.0-52.0); Hemoglobin 9.0 g/dl (14.0-18.0); Imm Gran Abs Auto 0.10 X10*3/uL (0.00-0.03); Imm Gran Pct Auto 1.0 % (0.0-0.4); Lymphocytes Absolute Auto 0.9 X10*3/uL (1.2-4.9); Mean Corpuscular HGB Conc 33.0 g/dl (31.0-36.0); Mean Corpuscular Hemoglobin 28.9 pg (27.0-33.0); Mean Corpuscular Volume 87.8 fL (80.0-98.0); NRBC Abs Auto 0.000 X10*3/uL (0.0-0.012); NRBC Pct Auto 0.0 /100WBC (0.0-0.2); Platelet Count 60 X10*3/uL (160-400); Red Blood Count 3.11 X10*6/uL (4.60-5.80); White Blood Count 9.8 X10*3/uL (4.8-10.8)
[2025-09-06 08:01] LABS: INTERNATIONAL NORM RATIO 1.3 (0.9-1.1); Prothrombin Time 16.0 SEC (11.2-13.5)
[2025-09-06 08:10] LABS: Anion Gap 12 (12-20); Blood Urea Nitrogen 30 mg/dL (9-16); Calcium 8.1 mg/dL (8.4-10.2); Carbon Dioxide 21 mmol/L (22-29); Chloride 104 mmol/L (96-108); Creatinine Clr Calc Pharmacy 68.9; Estimated Glomerular Filt Rate 57; Potassium 4.0 mmol/L (3.3-5.1); Sodium 133 mmol/L (135-145)
[2025-09-06 08:11] LABS: Partial Thromboplastin Time 23.0 SEC (26.7-34.1)
--- NOTE | 2025-09-06 08:27 | P.PNGS_ITS ---
Subjective Subjective Date of Service: 09/06/25 Interval history: Complains of abdominal bloating, some nausea but no vomiting. Had a difficult night sleeping. Still oozing from ALAN drain site. Output appears serosanguineous. No flatus or BM. Physical Exam 2 Vital Signs: Vital Signs: Last Vital Signs Temp 98.3 F 09/06/25 07:46 Pulse 106 H 09/06/25 07:46 Resp 20 09/06/25 07:46 BP 142/98 H 09/06/25 07:46 Pulse Ox 98 09/06/25 07:46 O2 Del Method Room Air 09/06/25 07:46 O2 Flow Rate 2 09/04/25 13:45 BMI result Body Mass Index 33.9 Const: General: alert and awake Nutritional Appearance: well nourished O rientation/consciousness: patient oriented x3 Resp: Effort & Inspection: normal respiratory effort Neuro: General: patient oriented x3 Objective Data Active Medications Acetaminophen (Acetaminophen 325 Mg Tablet) 650 mg PO Q6H PRN PRN Reason: Pain, Mild 1-3,fever,headache Last Admin: 09/02/25 19:44 Dose: 650 mg Documented By: BRONWYN Al Hydroxide/Mg Hydroxide (Magnesium Hydrox/Alum Hydrox 30 Ml Oral.Susp) 30 ml PO Q4H PRN PRN Reason: Heartburn Albuterol Sulfate (Albuterol Sulfate 90 Mcg 8 Gm Inhaler) 2 puff INHALE Q6H PRN PRN Reason: Shortness Of Breath Or Wheezing Calcium Carbonate (Calcium Carbonate 750 Mg Tab.Chew) 750 mg PO Q4H PRN PRN Reason: Heartburn Fluticasone Propionate (Fluticasone Propionate Nasal 16 Gm [place]) 1 spray NOSTRIL-B DAILY PRN PRN Reason: Allergy Symptoms Furosemide (Furosemide 20 Mg Tablet) 20 mg PO DAILY [facility]ONATH[facility]; Protocol Last Admin: 09/05/25 08:32 Dose: 20 mg Documented By: KETURAH Hydromorphone HCl (Hydromorphone Hcl 1 Mg/Ml Syringe) 1 mg IVPUSH Q4H PRN; Protocol PRN Reason: Pain, Severe (Pain Scale 7-10) Last Admin: 09/06/25 07:38 Dose: 1 mg Documented By: KETURAH Cefepime HCl 1 gm/ Sodium (Chloride) 50 mls @ 100 mls/hr IV Q12H [facility] Last Infusion: 09/06/25 02:26 Dose: Infused Documented By: MYRANDA Lactated Ringer's (Lr) 1,000 mls @ 80 mls/hr IVCONT .[id number] [facility] Last Admin: 09/06/25 06:01 Dose: 125 mls/hr Documented By: MYRANDA Loratadine (Loratadine 10 Mg Tablet) 10 mg PO DAILY [facility] Last Admin: 09/05/25 08:33 Dose: 10 mg Documented By: KETURAH Lorazepam (Lorazepam 0.5 Mg Tablet) 0.5 mg PO Q8H PRN PRN Reason: Anxiety Losartan Potassium (Losartan Potassium 50 Mg Tablet) 100 mg PO DAILY [facility]; Protocol Last Admin: 09/05/25 08:33 Dose: 100 mg Documented By: KETURAH Magnesium Hydroxide (Milk Of Magnesia 30 Ml Oral.Susp) 30 ml PO DAILY PRN PRN Reason: Constipation Melatonin (Melatonin 3 Mg Tablet) 6 mg PO BEDTIME PRN PRN Reason: Insomnia Metronidazole (Metronidazole 500 Mg Tablet) 500 mg PO Q8H [facility] Last Admin: 09/06/25 01:56 Dose: 500 mg Documented By: MYRANDA Naloxone HCl (Naloxone Hcl 0.4 Mg/Ml Vial) 0.2 mg IVPUSH Q2M PRN PRN Reason: Excessive sedation or RR < 8 Omeprazole (Omeprazole 20 Mg Capsule.) 20 mg PO SUTUTHSA@0630 [facility] Last Admin: 09/06/25 05:57 Dose: 20 mg Documented By: MYRANDA Ondansetron HCl (Ondansetron Hcl 4 Mg/2 Ml Vial) 4 mg IVPUSH Q8H PRN PRN Reason: Nausea and Vomiting Last Admin: 09/06/25 01:56 Dose: 4 mg Documented By: MYRANDA Oxycodone HCl (Oxycodone Hcl Immed Release 5 Mg Tablet) 5 mg PO Q4H PRN PRN Reason: Pain, Moderate(Pain Scale 4-6) Last Admin: 09/06/25 06:00 Dose: 5 mg Documented By: MYRANDA Sodium Chloride (0.9 % Sodium Chloride Flush 3 Ml Syringe) 3 ml IVFLUSH QSHIFT [facility] Last Admin: 09/06/25 07:40 Dose: 3 ml Documented By: KETURAH Trazodone HCl (Trazodone Hcl 50 Mg Tablet) 50 mg PO DAILY PRN PRN Reason: Insomnia Vitamin D (Cholecalciferol (Vitamin D3) 25 Mcg Tablet) 100 mcg PO DAILY [facility]ONATHAN Last Admin: 09/05/25 08:32 Dose: 100 mcg Documented By: KETURAH Labs 09/06/25 07:37 09/06/25 07:37 Labs: Laboratory Results - last 24 hr 09/03/25 09/05/25 09/05/25 16:00 07:18 15:42 MCV 89.9 MCH 29.0 MCHC 32.3 RDW 14.7 Plt Count 69 L MPV 9.8 Immature Gran % (Auto) 1.4 H Neut % (Auto) 81.9 H Lymph % (Auto) 9.3 L [place] % (Auto) 7.2 Eos % (Auto) 0.0 Baso % (Auto) 0.2 Lymph # (Auto) 1.1 L [place] # (Auto) 0.9 Eos # (Auto) 0.0 Baso # (Auto) 0.0 Abs Immat Gran (auto) 0.17 H Absolute Neuts (auto) 9.7 H Absolute Nucleated RBC 0.000 Nucleated RBC % (auto) 0.0 PT 17.2 H D 16.6 H INR 1.4 H 1.4 H APTT Anion Gap Estim Creat Clear Calc Estimated GFR Random Glucose Calcium Blood Type O Negative Antibody Screen NEGATIVE Crossmatch See Detail 09/06/25 07:37 MCV 87.8 MCH 28.9 MCHC 33.0 RDW 14.9 Plt Count 60 L MPV 9.7 Immature Gran % (Auto) 1.0 H Neut % (Auto) 83.0 H Lymph % (Auto) 9.0 L [place] % (Auto) 6.4 Eos % (Auto) 0.3 Baso % (Auto) 0.3 Lymph # (Auto) 0.9 L [place] # (Auto) 0.6 Eos # (Auto) 0.0 Baso # (Auto) 0.0 Abs Immat Gran (auto) 0.10 H Absolute Neuts (auto) 8.1 Absolute Nucleated RBC 0.000 Nucleated RBC % (auto) 0.0 PT 16.0 H INR 1.3 H APTT 23.0 L D Anion Gap 12 Estim Creat Clear Calc 68.9 Estimated GFR 57 Random Glucose 100 Calcium 8.1 L Blood Type Antibody Screen Crossmatch Procedures Date of Service Date of Service: 09/06/25 Progress Note: A&P Assessment and plan (1) Anti-phospholipid antibody syndrome: Status: Acute Assessment and Plan: Patient normally treated with Coumadin, was on argatroban to bridge the Coumadin prior to surgery. Unfortunately the patient continues to drift his H&H and required 2 units of PRBCs and 1 unit of platelets yesterday. H&H is improved this morning however platelets remain low. We will transfuse another unit of platelets this morning. (2) Diverticulitis of large intestine with complication: Status: Acute Assessment and Plan: POD 2 following hand assisted laparoscopic left colectomy and small-bowel resection for diverticular abscess. Patient is complaining of abdominal distention this morning in CT last evening revealed dilated loops of small bowel and colon which seemed to be contributing to the abdominal distention. A small amount of hemoperitoneum is also identified by CT. Pain control is also an issue. We will continue to monitor blood level, bleeding from ALAN. Continue NPO with IV fluids. May need NG tube if he does not began to pass flatus. We will add Ativan for increased anxiety. Encouraged out of bed and ambulation. Encourage incentive spirometry. We will keep at clear liquids for now. Recheck labs in a.m.. Time Spent With Patient Time: Total time managing care of this patient today ____ minutes. Quality Stroke Does the patient have a stroke diagnosis?: No VTE Prior VTE?: No VTE Risk Level:: Surgical - high VTE Device Contraindication: N/A - Device Ordered VTE Drug Contraindication: N/A - Med Ordered
[2025-09-06] MEDS: HYDROmorphone HCl/NS 10 MG/50 ML PIGGYBACK 1.5 MG IV (10:54)
--- NOTE | 2025-09-06 14:15 | PC.NURSE ---
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 changed for new TAILORING TEACHER pump. starting volume on new pump 34.4mL to reflect true bag volume from previous pump. see TAILORING TEACHER sheet. verified with tenzin BLANCAS
[2025-09-06] MEDS: Lactated Ringers 1,000 ML 80 ML IVCONT (15:00)
[2025-09-07] VITALS (9 sets, daily range): BP systolic 143–168; BP diastolic 92–103; PULSE 87–108; RESP 15–20; TEMP 36.4–37.2; O2SAT 92–95
[2025-09-07] MEDS: HYDROmorphone HCl/NS 10 MG/50 ML PIGGYBACK 1.5 MG IV ×2 (00:13→15:14)
[2025-09-07] MEDS: 0.9 % Sodium Chloride Flush 3 ML SYRINGE IVFLUSH ×3 (00:16→15:18)
[2025-09-07] MEDS: Lactated Ringers 1,000 ML 80 ML IVCONT ×2 (02:18→15:18)
[2025-09-07 06:34] LABS: MANUAL DIFF FLAG NO
[2025-09-07 06:40] LABS: Hematocrit 29.6 % (42.0-52.0); Hemoglobin 9.6 g/dl (14.0-18.0); Imm Gran Abs Auto 0.09 X10*3/uL (0.00-0.03); Imm Gran Pct Auto 0.9 % (0.0-0.4); Lymphocytes Absolute Auto 1.0 X10*3/uL (1.2-4.9); Mean Corpuscular HGB Conc 32.4 g/dl (31.0-36.0); Mean Corpuscular Hemoglobin 28.9 pg (27.0-33.0); Mean Corpuscular Volume 89.2 fL (80.0-98.0); NRBC Abs Auto 0.000 X10*3/uL (0.0-0.012); NRBC Pct Auto 0.0 /100WBC (0.0-0.2); Red Blood Count 3.32 X10*6/uL (4.60-5.80); White Blood Count 10.2 X10*3/uL (4.8-10.8)
[2025-09-07 06:41] LABS: Platelet Count 58 X10*3/uL (160-400)
[2025-09-07 07:23] LABS: INTERNATIONAL NORM RATIO 1.2 (0.9-1.1); Partial Thromboplastin Time 27.6 SEC (26.7-34.1); Prothrombin Time 14.1 SEC (11.2-13.5)
--- NOTE | 2025-09-07 08:02 | P.PNGS_ITS ---
Subjective Subjective Date of Service: 09/07/25 Interval history: C/o right arm swelling this morning. Also reports grogginess with basal rate on [employer] pump but overall much comfortable and pain better controlled. No flatus or BM yet. Was OOB to recliner for 40 minutes yesterday. Physical Exam 2 Vital Signs: Vital Signs: Last Vital Signs Temp 97.6 F 09/07/25 07:58 Pulse 104 H 09/07/25 07:58 Resp 16 09/07/25 07:58 BP 158/99 H 09/07/25 03:41 Pulse Ox 92 09/07/25 07:58 O2 Del Method Room Air 09/07/25 07:58 O2 Flow Rate 2 09/04/25 13:45 BMI result Body Mass Index 33.9 Const: General: comfortable, no acute distress and alert O rientation/consciousness: patient oriented x3 HEENT: Other: NGT scant output Resp: Effort & Inspection: normal respiratory effort and able to speak in complete sentences GI: Other: ALAN drain with sanguineous output Inspection: Yes distended and Yes incision (clean ) Palpation (GI): Soft to palpation, Tenderness to palpation present (GI) (mild diffuse, incisional) and no guarding Percussion: Yes tympanic to percussion Skin: Other: warm and dry Neuro: General: patient oriented x3 and moves all extremities Extrem: Other: right upper extremity edematous throughout and significantly enlarged > LUE, PICC line in place Objective Data Active Medications Acetaminophen (Acetaminophen 325 Mg Tablet) 650 mg PO Q6H PRN PRN Reason: Pain, Mild 1-3,fever,headache Last Admin: 09/02/25 19:44 Dose: 650 mg Documented By: BRONWYN Al Hydroxide/Mg Hydroxide (Magnesium Hydrox/Alum Hydrox 30 Ml Oral.Susp) 30 ml PO Q4H PRN PRN Reason: Heartburn Albuterol Sulfate (Albuterol Sulfate 90 Mcg 8 Gm Inhaler) 2 puff INHALE Q6H PRN PRN Reason: Shortness Of Breath Or Wheezing Calcium Carbonate (Calcium Carbonate 750 Mg Tab.Chew) 750 mg PO Q4H PRN PRN Reason: Heartburn Fluticasone Propionate (Fluticasone Propionate Nasal 16 Gm [place]) 1 spray NOSTRIL-B DAILY PRN PRN Reason: Allergy Symptoms Furosemide (Furosemide 20 Mg Tablet) 20 mg PO DAILY [facility]ONATH[facility]; Protocol Last Admin: 09/06/25 08:39 Dose: 20 mg Documented By: KETURAH Lactated Ringer's (Lr) 1,000 mls @ 80 mls/hr IVCONT .[id number] [facility] Last Admin: 09/07/25 02:18 Dose: 80 mls/hr Documented By: RANJANA Hydromorphone HCl (Dilaudid) 10 mg in 50 mls @ 0 mls/hr IV .Q0M [facility]; Protocol Last Admin: 09/07/25 00:13 Dose: 0.3 mg/hr, 1.5 mls/hr Documented By: RANJANA Loratadine (Loratadine 10 Mg Tablet) 10 mg PO DAILY [facility] On Hold: 09/06/25 09:44 Last Admin: 09/06/25 08:40 Dose: 10 mg Documented By: KETURAH Lorazepam (Lorazepam 0.5 Mg Tablet) 0.5 mg PO Q4H PRN PRN Reason: Anxiety Last Admin: 09/07/25 02:13 Dose: 0.5 mg Documented By: RANJANA Losartan Potassium (Losartan Potassium 50 Mg Tablet) 100 mg PO DAILY [facility]; Protocol Last Admin: 09/06/25 08:40 Dose: 100 mg Documented By: KETURAH Magnesium Hydroxide (Milk Of Magnesia 30 Ml Oral.Susp) 30 ml PO DAILY PRN PRN Reason: Constipation Melatonin (Melatonin 3 Mg Tablet) 6 mg PO BEDTIME PRN PRN Reason: Insomnia Naloxone HCl (Naloxone Hcl 0.4 Mg/Ml Vial) 0.2 mg IVPUSH Q2M PRN PRN Reason: Excessive sedation or RR < 8 Omeprazole (Omeprazole 20 Mg Capsule.) 20 mg PO SUTUTHSA@0630 [facility] Last Admin: 09/06/25 05:57 Dose: 20 mg Documented By: MYRANDA Ondansetron HCl (Ondansetron Hcl 4 Mg/2 Ml Vial) 4 mg IVPUSH Q8H PRN PRN Reason: Nausea and Vomiting Last Admin: 09/06/25 14:19 Dose: 4 mg Documented By: DENIS Sodium Chloride (0.9 % Sodium Chloride Flush 3 Ml Syringe) 3 ml IVFLUSH QSHIFT [facility] Last Admin: 09/07/25 00:16 Dose: 3 ml Documented By: RANJANA Trazodone HCl (Trazodone Hcl 50 Mg Tablet) 50 mg PO DAILY PRN PRN Reason: Insomnia Last Admin: 09/06/25 21:49 Dose: 50 mg Documented By: RANJANA Vitamin D (Cholecalciferol (Vitamin D3) 25 Mcg Tablet) 100 mcg PO DAILY [facility]ONATH[facility] On Hold: 09/06/25 09:43 Last Admin: 09/06/25 08:40 Dose: 100 mcg Documented By: SYDNEEAV Labs 09/07/25 06:13 09/06/25 07:37 Labs: Laboratory Results - last 24 hr 09/03/25 09/06/25 09/06/25 16:00 07:37 16:58 MCV MCH MCHC RDW Plt Count MPV Immature Gran % (Auto) Neut % (Auto) Lymph % (Auto) [place] % (Auto) Eos % (Auto) Baso % (Auto) Lymph # (Auto) [place] # (Auto) Eos # (Auto) Baso # (Auto) Abs Immat Gran (auto) Absolute Neuts (auto) Absolute Nucleated RBC Nucleated RBC % (auto) PT 16.0 H INR 1.3 H APTT 23.0 L D Anion Gap 12 Estim Creat Clear Calc 68.9 Estimated GFR 57 Random Glucose 100 Calcium 8.1 L Blood Type O Negative O Negative Antibody Screen NEGATIVE NEGATIVE Crossmatch See Detail 09/07/25 06:13 MCV 89.2 MCH 28.9 MCHC 32.4 RDW 15.3 Plt Count 58 L MPV 10.3 Immature Gran % (Auto) 0.9 H Neut % (Auto) 81.3 H Lymph % (Auto) 9.3 L [place] % (Auto) 7.1 Eos % (Auto) 1.1 Baso % (Auto) 0.3 Lymph # (Auto) 1.0 L [place] # (Auto) 0.7 Eos # (Auto) 0.1 Baso # (Auto) 0.0 Abs Immat Gran (auto) 0.09 H Absolute Neuts (auto) 8.3 Absolute Nucleated RBC 0.000 Nucleated RBC % (auto) 0.0 PT 14.1 H INR 1.2 H APTT 27.6 Anion Gap Estim Creat Clear Calc Estimated GFR Random Glucose Calcium Blood Type Antibody Screen Crossmatch Procedures Date of Service Date of Service: 09/07/25 Progress Note: A&P Assessment and plan (1) Anti-phospholipid antibody syndrome: Status: Acute (2) Diverticulitis of large intestine with complication: Status: Acute Plan POD 3 following hand assisted laparoscopic left colectomy and small-bowel resection for diverticular abscess. Feels improved with NGT in place, no evidence of GI function yet but anticipate slow return given operative findings. VSS. Abd distended but soft, incisions clean. Unfortunately ALAN remains martin sanguineous. H/H and platelets stable this am. Cont to monitor. Will discuss with heme regarding anticoagulation. Continue NGT - currently on continuous discussed with RN obtaining suction that allows intermittent. Cont IV fluids. May need PPN if no evidence of GI function in the next few days. Will obtain RUE US to r/o DVT. Encouraged out of bed and ambulation. Encourage incentive spirometry. Basal rate removed from [employer]. Time Spent With Patient Time: Total time managing care of this patient today ____ minutes. Quality Stroke Does the patient have a stroke diagnosis?: No VTE Prior VTE?: No VTE Risk Level:: Surgical - high VTE Device Contraindication: N/A - Device Ordered VTE Drug Contraindication: N/A - Med Ordered
[2025-09-08] VITALS (14 sets, daily range): BP systolic 130–161; BP diastolic 72–104; PULSE 94–151; RESP 16–20; TEMP 36.9–37.6; O2SAT 90–95; BMI 33.9
--- NOTE | 2025-09-08 | ECG_ITS ---
Test Reason : AFIB Blood Pressure : */* mmHG Vent. Rate : 96 BPM Atrial Rate : 96 BPM P-R Int : 152 ms QRS Dur : 100 ms QT Int : 354 ms P-R-T Axes : 3 69 0 degrees QTcB Int : 447 ms Normal sinus rhythm Normal ECG When compared with ECG of 08-Sep-2025 15:25, Sinus rhythm has replaced Atrial fibrillation Vent. rate has decreased by [address] no longer depressed in Anterior leads Referred By: Darrick Pavon Electronically Signed By: LINDSAY NORMAN MD
--- NOTE | 2025-09-08 | ECG_ITS ---
Test Reason : Tachycardia Blood Pressure : */* mmHG Vent. Rate : 143 BPM Atrial Rate : * BPM P-R Int : * ms QRS Dur : 92 ms QT Int : 316 ms P-R-T Axes : * 79 -28 degrees QTcB Int : 487 ms Atrial fibrillation with rapid ventricular response Incomplete right bundle branch block ST & T wave abnormality, consider inferior ischemia Abnormal ECG When compared with ECG of 10-Aug-2025 10:14, Atrial fibrillation has replaced Sinus rhythm Non-specific change in ST segment in Inferior leads ST now depressed in Anterior leads Nonspecific T wave abnormality now evident in Anterior leads Referred By: Darrick Pavon Electronically Signed By: LINDSAY NORMAN MD
[2025-09-08] MEDS: Lactated Ringers 1,000 ML 80 ML IVCONT ×2 (03:39→15:01)
[2025-09-08 06:57] LABS: MANUAL DIFF FLAG NO
[2025-09-08 07:03] LABS: Hematocrit 26.5 % (42.0-52.0); Hemoglobin 8.7 g/dl (14.0-18.0); Imm Gran Abs Auto 0.11 X10*3/uL (0.00-0.03); Imm Gran Pct Auto 1.1 % (0.0-0.4); Lymphocytes Absolute Auto 1.2 X10*3/uL (1.2-4.9); Mean Corpuscular HGB Conc 32.8 g/dl (31.0-36.0); Mean Corpuscular Hemoglobin 29.8 pg (27.0-33.0); Mean Corpuscular Volume 90.8 fL (80.0-98.0); NRBC Abs Auto 0.000 X10*3/uL (0.0-0.012); NRBC Pct Auto 0.0 /100WBC (0.0-0.2); Red Blood Count 2.92 X10*6/uL (4.60-5.80); White Blood Count 10.1 X10*3/uL (4.8-10.8)
[2025-09-08 07:05] LABS: Platelet Count 47 X10*3/uL (160-400)
[2025-09-08] MEDS: HYDROmorphone HCl/NS 10 MG/50 ML PIGGYBACK 1.5 MG IV (07:17)
--- NOTE | 2025-09-08 08:07 | PM.PNGS ---
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 Feels rumbling in his abdomen but no flatus. Reports right arm is improved with less swelling today. Physical Exam Vital Signs: Vital Signs: Last Vital Signs Temp 99.7 F 09/08/25 07:53 Pulse 102 H 09/08/25 07:53 Resp 18 09/08/25 07:53 BP 161/104 H 09/08/25 07:53 Pulse Ox 95 09/08/25 07:53 O2 Del Method Room Air 09/08/25 07:53 O2 Flow Rate 2 09/04/25 13:45 BMI result Body Mass Index 33.9 Const: General: no acute distress Nutritional Appearance: well nourished Orientation/consciousness: patient oriented x3 Resp: Effort & Inspection: normal respiratory effort, no cough and no respiratory distress GI: Other: Distended, less tympanitic, incision clean and intact without redness or discharge. ALAN with serosanguineous output. Neuro: General: patient oriented x3 Extrem: Other: Decreased edema right arm. PICC line site clean Objective Data Active Medications Acetaminophen (Acetaminophen 325 Mg Tablet) 650 mg PO Q6H PRN PRN Reason: Pain, Mild 1-3,fever,headache Last Admin: 09/02/25 19:44 Dose: 650 mg Documented By: BRONWYN Al Hydroxide/Mg Hydroxide (Magnesium Hydrox/Alum Hydrox 30 Ml Oral.Susp) 30 ml PO Q4H PRN PRN Reason: Heartburn Albuterol Sulfate (Albuterol Sulfate 90 Mcg 8 Gm Inhaler) 2 puff INHALE Q6H PRN PRN Reason: Shortness Of Breath Or Wheezing Amlodipine Besylate (Amlodipine Besylate 5 Mg Tablet) 5 mg PO DAILY [facility]; Protocol Last Admin: 09/07/25 17:39 Dose: 5 mg Documented By: SHREE Calcium Carbonate (Calcium Carbonate 750 Mg Tab.Chew) 750 mg PO Q4H PRN PRN Reason: Heartburn Fluticasone Propionate (Fluticasone Propionate Nasal 16 Gm [place]) 1 spray NOSTRIL-B DAILY PRN PRN Reason: Allergy Symptoms Furosemide (Furosemide 20 Mg Tablet) 20 mg PO DAILY [facility]; Protocol Last Admin: 09/07/25 08:18 Dose: 20 mg Documented By: SHREE Lactated Ringer's (Lr) 1,000 mls @ 80 mls/hr IVCONT .[id number] [facility] Last Admin: 09/08/25 03:39 Dose: 80 mls/hr Documented By: NUSRAT Hydromorphone HCl (Dilaudid) 10 mg in 50 mls @ 0 mls/hr IV .Q0M [facility]; Protocol Last Admin: 09/08/25 07:17 Dose: 0.3 mg/hr, 1.5 mls/hr Documented By: NUSRAT Loratadine (Loratadine 10 Mg Tablet) 10 mg PO DAILY [facility] On Hold: 09/06/25 09:44 Last Admin: 09/06/25 08:40 Dose: 10 mg Documented By: KETURAH Lorazepam (Lorazepam 0.5 Mg Tablet) 0.5 mg PO Q4H PRN PRN Reason: Anxiety Last Admin: 09/07/25 23:45 Dose: 0.5 mg Documented By: NUSRAT Losartan Potassium (Losartan Potassium 50 Mg Tablet) 100 mg PO DAILY [facility]; Protocol Last Admin: 09/07/25 08:18 Dose: 100 mg Documented By: SHREE Magnesium Hydroxide (Milk Of Magnesia 30 Ml Oral.Susp) 30 ml PO DAILY PRN PRN Reason: Constipation Melatonin (Melatonin 3 Mg Tablet) 6 mg PO BEDTIME PRN PRN Reason: Insomnia Naloxone HCl (Naloxone Hcl 0.4 Mg/Ml Vial) 0.2 mg IVPUSH Q2M PRN PRN Reason: Excessive sedation or RR < 8 Omeprazole (Omeprazole 20 Mg Capsule.) 20 mg PO SUTUTHSA@0630 [facility] Last Admin: 09/08/25 05:54 Dose: 20 mg Documented By: NUSRAT Ondansetron HCl (Ondansetron Hcl 4 Mg/2 Ml Vial) 4 mg IVPUSH Q8H PRN PRN Reason: Nausea and Vomiting Last Admin: 09/06/25 14:19 Dose: 4 mg Documented By: DENIS Pharmacy Consult (Consult Rx Parenteral Nutrition Ordering) 1 each [place] DAILY PRN PRN Reason: Consult order Sodium Chloride (0.9 % Sodium Chloride Flush 3 Ml Syringe) 3 ml IVFLUSH QSHIFT [facility] Last Admin: 09/08/25 00:01 Dose: Not Given Documented By: NUSRAT Non-Admin Reason: IV Running Trazodone HCl (Trazodone Hcl 50 Mg Tablet) 50 mg PO DAILY PRN PRN Reason: Insomnia Last Admin: 09/06/25 21:49 Dose: 50 mg Documented By: TALIENEYuliana Vitamin D (Cholecalciferol (Vitamin D3) 25 Mcg Tablet) 100 mcg PO DAILY [facility] On Hold: 09/06/25 09:43 Last Admin: 09/06/25 08:40 Dose: 100 mcg Documented By: RICCIAV Labs 09/08/25 06:33 09/06/25 07:37 Labs: Laboratory Results - last 24 hr 09/05/25 09/08/25 15:42 06:33 MCV 90.8 MCH 29.8 MCHC 32.8 RDW 15.2 Plt Count 47 L MPV 10.6 Immature Gran % (Auto) 1.1 H Neut % (Auto) 77.4 H Lymph % (Auto) 11.8 L [place] % (Auto) 7.4 Eos % (Auto) 1.9 Baso % (Auto) 0.4 Lymph # (Auto) 1.2 [place] # (Auto) 0.7 Eos # (Auto) 0.2 Baso # (Auto) 0.0 Abs Immat Gran (auto) 0.11 H Absolute Neuts (auto) 7.8 Absolute Nucleated RBC 0.000 Nucleated RBC % (auto) 0.0 Smear Path Review SEE NOTE Procedures Date of Service Date of Service: 09/08/25 Progress Note: A&P Assessment and plan (1) Thrombocytopenia: Status: Chronic Assessment and Plan: Platelet count has drifted down further today. We will transfuse a unit of platelets today. Recheck labs in a.m. (2) Anti-phospholipid antibody syndrome: Status: Acute Assessment and Plan: Anticoagulation on hold due to sanguinous output from ALAN (3) Hypertension: Status: Acute Assessment and Plan: Patient receiving hypertensive meds with NG tube clamped. We will continue to monitor; may need hospitalist recommendation. (4) Diverticulitis of large intestine with complication: Status: Acute Assessment and Plan: S/p hand assisted laparoscopic left colectomy and small-bowel resection with abscess collection abdominal wall. ALAN and abscess cavity with some sanguinous output. Overall the output seems to be decreasing somewhat. We will recheck CT abdomen and pelvis today, platelet transfusion. Recheck labs in a.m. Patient has been NPO with an NG tube in place. We will consult for TPN. Physical therapy consult. Time Spent With Patient Time: Total time managing care of this patient today ____ minutes. Quality Stroke Does the patient have a stroke diagnosis?: No VTE Prior VTE?: No VTE Risk Level:: Surgical - high VTE Device Contraindication: N/A - Device Ordered VTE Drug Contraindication: N/A - Med Ordered
[2025-09-08 08:44] LABS: Albumin Level 2.7 g/dL (3.5-5.0); Anion Gap 12 (12-20); Blood Urea Nitrogen 26 mg/dL (9-16); Calcium 8.2 mg/dL (8.4-10.2); Carbon Dioxide 25 mmol/L (22-29); Chloride 104 mmol/L (96-108); Creatinine Clr Calc Pharmacy 82.4; Estimated Glomerular Filt Rate > 60; Magnesium 1.8 mg/dL (1.6-2.6); Potassium 4.1 mmol/L (3.3-5.1); Sodium 137 mmol/L (135-145)
[2025-09-08] MEDS: 0.9 % Sodium Chloride Flush 3 ML SYRINGE IVFLUSH ×3 (09:10→20:20)
--- NOTE | 2025-09-08 09:54 | MHC.CLN ---
CONSULT FOR TPN PT IS CURRENTLY NPO REVIEWED LABS DISCUSSED WITH PHARMACY PT WITH PICC LINE RECOMMEND TPN AT 50ML/HR TO PROVIDE 852KCALS, 180G DEXTROSE, 60G PROTEIN REPLETE LYTES NEEDED SEE FULL ASSESSMENT
--- NOTE | 2025-09-08 15:24 | P.PNIM_ITS ---
Subjective Subjective Date of Service: 09/08/25 Interval History: BP has been on high side Went into AFIB with RVR given 5 mg iv lopressor x 2 and has converted to sinus rythm Physical Exam 2 Vital Signs: Vital Signs: Last Vital Signs Temp 99.1 F 09/08/25 15:02 Pulse 142 H 09/08/25 15:21 Resp 20 09/08/25 15:02 BP 152/100 H 09/08/25 15:02 Pulse Ox 95 09/08/25 07:53 O2 Del Method Room Air 09/08/25 07:53 O2 Flow Rate 2 09/04/25 13:45 BMI result Body Mass Index 33.9 Const: Other: General: AO X 3, no acute distress Resp: CTA bilateral CVS: S1,S2,RRR GI: +BS, NT, no distention Skin: No rash Neuro: motor grossly intact Psych: appropriate affect Objective Data Active Medications Acetaminophen (Acetaminophen 325 Mg Tablet) 650 mg PO Q6H PRN PRN Reason: Pain, Mild 1-3,fever,headache Last Admin: 09/02/25 19:44 Dose: 650 mg Documented By: BRONWYN Al Hydroxide/Mg Hydroxide (Magnesium Hydrox/Alum Hydrox 30 Ml Oral.Susp) 30 ml PO Q4H PRN PRN Reason: Heartburn Albuterol Sulfate (Albuterol Sulfate 90 Mcg 8 Gm Inhaler) 2 puff INHALE Q6H PRN PRN Reason: Shortness Of Breath Or Wheezing Amlodipine Besylate (Amlodipine Besylate 5 Mg Tablet) 5 mg PO DAILY COUNTS INCLUDE 234 BEDS AT THE [facility]; Protocol Last Admin: 09/08/25 09:10 Dose: 5 mg Documented By: HERNESTO Calcium Carbonate (Calcium Carbonate 750 Mg Tab.Chew) 750 mg PO Q4H PRN PRN Reason: Heartburn Fluticasone Propionate (Fluticasone Propionate Nasal 16 Gm Marquez) 1 spray NOSTRIL-B DAILY PRN PRN Reason: Allergy Symptoms Furosemide (Furosemide 20 Mg Tablet) 20 mg PO DAILY JONATHAN; Protocol Last Admin: 09/08/25 09:10 Dose: 20 mg Documented By: HERNESTO Lactated Ringer's (Lr) 1,000 mls @ 80 mls/hr IVCONT .[id number] JONATHAN Last Admin: 09/08/25 15:01 Dose: 80 mls/hr Documented By: HERNESTO Hydromorphone HCl (Dilaudid) 10 mg in 50 mls @ 0 mls/hr IV .Q0M COUNTS INCLUDE 234 BEDS AT THE [facility]; Protocol Last Admin: 09/08/25 07:17 Dose: 0.3 mg/hr, 1.5 mls/hr Documented By: NUSRAT Nutrition (Parenteral) (Parenteral Nutrition) 1,200 mls @ 50 mls/hr IV .Q24H COUNTS INCLUDE 234 BEDS AT THE [facility]; Protocol Stop: 09/09/25 20:59 Loratadine (Loratadine 10 Mg Tablet) 10 mg PO DAILY COUNTS INCLUDE 234 BEDS AT THE [facility] On Hold: 09/06/25 09:44 Last Admin: 09/06/25 08:40 Dose: 10 mg Documented By: KETURAH Lorazepam (Lorazepam 0.5 Mg Tablet) 0.5 mg PO Q4H PRN PRN Reason: Anxiety Last Admin: 09/07/25 23:45 Dose: 0.5 mg Documented By: NUSRAT Losartan Potassium (Losartan Potassium 50 Mg Tablet) 100 mg PO DAILY COUNTS INCLUDE 234 BEDS AT THE [facility]; Protocol Last Admin: 09/08/25 09:10 Dose: 100 mg Documented By: HERNESTO Magnesium Hydroxide (Milk Of Magnesia 30 Ml Oral.Susp) 30 ml PO DAILY PRN PRN Reason: Constipation Melatonin (Melatonin 3 Mg Tablet) 6 mg PO BEDTIME PRN PRN Reason: Insomnia Naloxone HCl (Naloxone Hcl 0.4 Mg/Ml Vial) 0.2 mg IVPUSH Q2M PRN PRN Reason: Excessive sedation or RR < 8 Omeprazole (Omeprazole 20 Mg Capsule.Dr) 20 mg PO SUTUTHSA@0630 COUNTS INCLUDE 234 BEDS AT THE [facility] Last Admin: 09/08/25 05:54 Dose: 20 mg Documented By: NUSRAT Ondansetron HCl (Ondansetron Hcl 4 Mg/2 Ml Vial) 4 mg IVPUSH Q8H PRN PRN Reason: Nausea and Vomiting Last Admin: 09/06/25 14:19 Dose: 4 mg Documented By: DENIS Pharmacy Consult (Consult Rx Parenteral Nutrition Ordering) 1 each MISCELLANE DAILY PRN PRN Reason: Consult order Sodium Chloride (0.9 % Sodium Chloride Flush 3 Ml Syringe) 3 ml IVFLUSH QSHIFT COUNTS INCLUDE 234 BEDS AT THE [facility] Last Admin: 09/08/25 09:10 Dose: 3 ml Documented By: HERNESTO Trazodone HCl (Trazodone Hcl 50 Mg Tablet) 50 mg PO DAILY PRN PRN Reason: Insomnia Last Admin: 09/06/25 21:49 Dose: 50 mg Documented By: RANJANA Vitamin D (Cholecalciferol (Vitamin D3) 25 Mcg Tablet) 100 mcg PO DAILY JONATHAN On Hold: 09/06/25 09:43 Last Admin: 09/06/25 08:40 Dose: 100 mcg Documented By: ALFONSOCIAV Labs 09/09/25 06:16 09/09/25 06:16 Labs: Laboratory Results - last 24 hr 09/06/25 09/08/25 09/08/25 16:58 06:33 06:33 MCV 90.8 MCH 29.8 MCHC 32.8 RDW 15.2 Plt Count 47 L MPV 10.6 Immature Gran % (Auto) 1.1 H Neut % (Auto) 77.4 H Lymph % (Auto) 11.8 L [place] % (Auto) 7.4 Eos % (Auto) 1.9 Baso % (Auto) 0.4 Lymph # (Auto) 1.2 [place] # (Auto) 0.7 Eos # (Auto) 0.2 Baso # (Auto) 0.0 Abs Immat Gran (auto) 0.11 H Absolute Neuts (auto) 7.8 Absolute Nucleated RBC 0.000 Nucleated RBC % (auto) 0.0 Anion Gap 12 Cancelled Estim Creat Clear Calc 82.4 Estimated GFR Random Glucose Calcium Phosphorus Magnesium Albumin Blood Type O Negative Antibody Screen NEGATIVE 09/08/25 09/08/25 09/08/25 06:33 06:33 06:33 MCV MCH MCHC RDW Plt Count MPV Immature Gran % (Auto) Neut % (Auto) Lymph % (Auto) [place] % (Auto) Eos % (Auto) Baso % (Auto) Lymph # (Auto) [place] # (Auto) Eos # (Auto) Baso # (Auto) Abs Immat Gran (auto) Absolute Neuts (auto) Absolute Nucleated RBC Nucleated RBC % (auto) Anion Gap Estim Creat Clear Calc Cancelled Estimated GFR > 60 Cancelled Random Glucose 88 Cancelled Calcium 8.2 L Phosphorus Magnesium Albumin Blood Type Antibody Screen 09/08/25 09/08/25 09/08/25 06:33 06:33 06:33 MCV MCH MCHC RDW Plt Count MPV Immature Gran % (Auto) Neut % (Auto) Lymph % (Auto) [place] % (Auto) Eos % (Auto) Baso % (Auto) Lymph # (Auto) [place] # (Auto) Eos # (Auto) Baso # (Auto) Abs Immat Gran (auto) Absolute Neuts (auto) Absolute Nucleated RBC Nucleated RBC % (auto) Anion Gap Estim Creat Clear Calc Estimated GFR Random Glucose Calcium Cancelled Phosphorus 2.0 L Cancelled Magnesium 1.8 Cancelled Albumin 2.7 L Blood Type Antibody Screen 09/08/25 06:33 MCV MCH MCHC RDW Plt Count MPV Immature Gran % (Auto) Neut % (Auto) Lymph % (Auto) [place] % (Auto) Eos % (Auto) Baso % (Auto) Lymph # (Auto) [place] # (Auto) Eos # (Auto) Baso # (Auto) Abs Immat Gran (auto) Absolute Neuts (auto) Absolute Nucleated RBC Nucleated RBC % (auto) Anion Gap Estim Creat Clear Calc Estimated GFR Random Glucose Calcium Phosphorus Magnesium Albumin Cancelled Blood Type Antibody Screen Assessment and Plan (1) Afib: Status: Acute Plan Patient is a 64-year-old male with past medical history significant for antiphospholipid syndrome on Coumadin with recent HIT, HTN and asthma, admitted for Sigmoid diverticulitis with abscess, obstruction s/p hand assisted laparoscopic left colectomy, mobilization of splenic flexure, small-bowel resection, drainage of abscess on 09/04/25, post op complicated by ALAN and abscess cavity with some sanguinous output, thrombocytopenia, elevated blood pressure and now New AFIB with RVR S/p hand assisted laparoscopic left colectomy and small-bowel resection with abscess collection abdominal wall with some bleeding complication post op futher management per surgery, New onset AFIB with RVR IV lopressor, consider cardizem drip if unable to contol cardiology consult echo check TSH At this time unable to anticoagulation in light of plat of 47 only, and ongoing bleeing complication, clotting rate at this point should be low-- this was discussed with hematology and concur consider lung scan if can tolerate lying down Elevated blood pressure, usually controlled on Losartan alone, probably pain, anxiety component Norvasc added with improvement and further adjustment as needed Antiphospholipid syndrome, usually on coumadin on hold at this point in light of post op bleeding complication and platlet trednding down markedly HTN - losartan, Lasix and Norvasc asthma, unspecified - fluticasone, albuterol, cetirizine Pyoderma gangrenosum - patient's to do wound care Quality Stroke Does the patient have a stroke diagnosis?: No VTE Prior VTE?: No VTE Risk Level:: Surgical - high VTE Device Contraindication: N/A - Device Ordered VTE Drug Contraindication: N/A - Med Ordered
[2025-09-08 16:09] LABS: Thyroid Stimulating Hormone 1.47 uIU/mL (0.32-4.0)
--- NOTE | 2025-09-08 18:31 | PC.NURSE ---
At ~1515 Pt HR 130-160s while in bed talking with staff. Pt unaware. Other VSS. Hospitalist notified. EKG showed a fib. two doses of IV lopressor admined ( ~1530 without much effect second dose at 1700) Approx 1750 Pt converted to SR. adjusting medications
[2025-09-08] MEDS: Parenteral Nutrition 1,200 ML 50 ML IV (21:38)
[2025-09-09] MEDS: HYDROmorphone HCl/NS 10 MG/50 ML PIGGYBACK 1.5 MG IV ×2 (01:02→15:53)
[2025-09-09 03:42] VITALS: BP 133/92; PULSE 96; RESP 18; TEMP 36.8; O2SAT 98
--- NOTE | 2025-09-09 07:00 | CA_ITS ---
Transthoracic Echocardiogram Patient (Last, First, Middle): Alejandro Correa, Gender: Male Date of : 1960 Age: 64 Procedure Date: 09/09/2025 Procedure Type: Transthoracic Echocardiogram Location[place] [facility] [place] Height: 172.72 cm Weight: 100.7 kg BSA: 2.14 m2 Heart Rate: bpm BP: 152 / 100 mmHg Commercial Electrician: DAVID Referring MD: Darrick Pavon MD Manager Supply Chain Planning: Feng Gracia MD Symptoms: AFIB Study Quality: Fair/Adequate ECG Rhythm: Sinus Conclusions: - 1. Normal LV ejection fraction of 60 65% with mild left ventricular hypertrophy with impaired relaxation filling pattern 2. Mildly dilated left atrium 3. Mild aortic regurgitation 4. Normal RV systolic pressure 5. No gross pericardial effusion Findings Left Ventricle Normal left ventricular size and systolic function. There is mildly increased left ventricular wall thickness. The visually estimated ejection fraction is between 60-65%. Spectral Doppler is indicative of an impaired relaxation filling pattern. E/E prime ratio is between 8 and 15 consistent with indeterminate filling pressures. Right Ventricle Normal right ventricular cavity size and systolic function. Atria The left atrium is mildly dilated. There is no evidence of interatrial shunt. The right atrium is normal in size. Aortic Valve There is mild calcification of the aortic valve. The peak aortic velocity is 1.81 m/s with a calculated peak gradient of 13 mmHg. The mean gradient is 6 mmHg. There is mild aortic valve regurgitation. Mitral Valve Normal mitral valve structure and function. There is mild mitral annular calcification. There is trace mitral valve regurgitation. There is no mitral valve stenosis. Pulmonic Valve The pulmonic valve was not well visualized. Tricuspid Valve Likely normal tricuspid valve structure and function. There is trace tricuspid valve regurgitation. The right ventricular systolic pressure is normal. The right ventricular systolic pressure is 17 mmHg. Normal right atrial pressure. There is no evidence of pulmonary hypertension. Great Vessels The pulmonary artery was not well visualized. There is mild dilatation of the ascending aorta measuring 3.70 cm. Venous The inferior vena cava is normal in size and collapses greater than 50% with inspiration. Pericardium/Pleural There is no evidence of pericardial effusion. Prior Study Comparison No previous study in the last 5 years for comparison Measurements 2D Linear Measurements IVSd: 1.23 0.6-0.9/0.6-1.0 cm LVIDd: 5.23 3.9-5.3/4.2-5.9 cm LVIDd Index: 2.44 2.4-3.2/2.2-3.1 cm/m2 LVIDs: 3.20 2.0-3.6 cm LVPWd: 1.28 0.7-1.1 cm Ao Root: 3.50 2.1-3.5 cm LA Diam: 3.80 2.7-3.8/3.0-4.0 cm LAIDs Index: 1.78 1.5-2.3 cm/m2 LV Mass: 333.45 67-162/88-224 g LV Mass Index: 155.82 43-95/49-115 g/m2 LVOT Diam: 2.30 3.0+(-)1.3 cm Mitral Valve MV Pk E: 0.87 MV PK A: 1.28 MV Decel Time: 200.00 E/A: 0.70 E'Lateral: 10.60 E'Medial: 7.72 E/E' Med: 11.30 E/E' Lat: 8.20 PHT: 59.00 MVA PHT: 3.73 Decel [place]: 4.37 Aortic Valve AoV Pk Juan: 1.81 AoV Mn Juan: 1.13 AoV VTI: 0.31 AoV Pk Grad: 13.00 Aov Mn Grad: 6.00 CRISTINE Cont.VTI: 2.91 LVOT LVOT Pk Juan: 1.24 LVOT Mn Juan: 0.73 LVOT VTI: 0.22 LVOT Pk Grad: 6.00 LVOT Mn Grad: 3.00 LVOT Diam: 2.30 LVOT Area: 4.15 Diastolic Function MV Pk E: 0.87 MV Pk A: 1.28 E/A: 0.70 E'Medial: 7.72 E/E' Med: 11.30 E' Laterial: 10.60 E/E' Lat: 8.20 Right Ventricle TAPSE (mm): 29.00 TVS' Juan: 14.00 Tricuspid Valve TR Pk Juan: 1.90 TR Pk Grad: 14.00 RA Press: 3.00 RVSP: 17.00 Great Vessels Aorta Ao Root-2D: 3.50 2.0-3.7 cm Ao Asc: 3.70 2.1-3.4 cm Pulmonary Valve PV Pk Juan: 1.05 Peak PV Grad: 4.00 Updated in Other Vendor System with Status of Final Feng Gracia MD electronically signed on 09/09/2025 3:08:55 PM with status of Final
[2025-09-09 07:06] LABS: Hematocrit 28.8 % (42.0-52.0); Hemoglobin 9.3 g/dl (14.0-18.0); Imm Gran Abs Auto 0.07 X10*3/uL (0.00-0.03); Imm Gran Pct Auto 0.7 % (0.0-0.4); Lymphocytes Absolute Auto 1.6 X10*3/uL (1.2-4.9); MANUAL DIFF FLAG SCAN; Mean Corpuscular HGB Conc 32.3 g/dl (31.0-36.0); Mean Corpuscular Hemoglobin 29.3 pg (27.0-33.0); Mean Corpuscular Volume 90.9 fL (80.0-98.0); NRBC Abs Auto 0.000 X10*3/uL (0.0-0.012); NRBC Pct Auto 0.0 /100WBC (0.0-0.2); PLT CLUMP 1; Red Blood Count 3.17 X10*6/uL (4.60-5.80); SCAN SMEAR FLAG 1
[2025-09-09 07:20] LABS: Albumin Level 2.9 g/dL (3.5-5.0); Anion Gap 10 (12-20); Blood Urea Nitrogen 29 mg/dL (9-16); Calcium 8.4 mg/dL (8.4-10.2); Carbon Dioxide 29 mmol/L (22-29); Chloride 103 mmol/L (96-108); Creatinine Clr Calc Pharmacy 76.0; Estimated Glomerular Filt Rate > 60; Magnesium 2.1 mg/dL (1.6-2.6); Potassium 3.9 mmol/L (3.3-5.1); Sodium 138 mmol/L (135-145); Triglycerides 191 mg/dL (<150)
[2025-09-09 07:34] VITALS: BP 148/96; PULSE 90; RESP 20; TEMP 37.1; O2SAT 96
[2025-09-09 09:06] LABS: Platelet Count 55 X10*3/uL (160-400); White Blood Count 10.2 X10*3/uL (4.8-10.8)
--- NOTE | 2025-09-09 09:16 | MHC.CLN ---
F/U PT REMAINS NPO REVIEWED LABS DISCUSSED WITH PHARMACY RECOMMEND INCREASING TPN TO 70ML/HR WITH 42G LIPIDS TO PROVIDE 1613 TOTAL KCALS (23KCALS/KG), 252G DEXTROSE, 84G PROTEIN (1.2G/KG) REPLETE LYTES NEEDED
--- NOTE | 2025-09-09 11:04 | P.PNGS_ITS ---
Subjective Subjective Date of Service: 09/09/25 Interval history: Denies any further flatus or BM since small one yesterday, continues to be bloated. Sat up in bed this morning. Pain remains better controlled with ANTHROPOLOGY PROFESSOR pump. Physical Exam 2 Vital Signs: Vital Signs: Last Vital Signs Temp 98.7 F 09/09/25 07:34 Pulse 90 09/09/25 07:34 Resp 20 09/09/25 07:34 BP 148/96 H 09/09/25 07:34 Pulse Ox 96 09/09/25 07:34 O2 Del Method Room Air 09/09/25 07:34 O2 Flow Rate 2 09/04/25 13:45 BMI result Body Mass Index 33.9 Const: General: comfortable, no acute distress and alert O rientation/consciousness: patient oriented x3 Resp: Effort & Inspection: normal respiratory effort and able to speak in complete sentences GI: Other: remains distended and tympanitic incisions clean ALAN drain more old blood this morning, some serous drainage around the ALAN site ; ecchymosis laterally to drain soft, incisional tenderness Palpation (GI): Soft to palpation and no guarding Skin: General skin exam: no rashes or lesions noted Neuro: General: patient oriented x3 and moves all extremities Objective Data Active Medications Acetaminophen (Acetaminophen 325 Mg Tablet) 650 mg PO Q6H PRN PRN Reason: Pain, Mild 1-3,fever,headache Last Admin: 09/02/25 19:44 Dose: 650 mg Documented By: BRONWYN Al Hydroxide/Mg Hydroxide (Magnesium Hydrox/Alum Hydrox 30 Ml Oral.Susp) 30 ml PO Q4H PRN PRN Reason: Heartburn Albuterol Sulfate (Albuterol Sulfate 90 Mcg 8 Gm Inhaler) 2 puff INHALE Q6H PRN PRN Reason: Shortness Of Breath Or Wheezing Amlodipine Besylate (Amlodipine Besylate 5 Mg Tablet) 5 mg PO DAILY [facility]; Protocol Last Admin: 09/09/25 08:44 Dose: 5 mg Documented By: ZOEY Calcium Carbonate (Calcium Carbonate 750 Mg Tab.Chew) 750 mg PO Q4H PRN PRN Reason: Heartburn Fluticasone Propionate (Fluticasone Propionate Nasal 16 Gm Faxon) 1 spray NOSTRIL-B DAILY PRN PRN Reason: Allergy Symptoms Furosemide (Furosemide 20 Mg Tablet) 20 mg PO DAILY JONATHAN; Protocol Last Admin: 09/09/25 08:44 Dose: 20 mg Documented By: ZOEY Hydromorphone HCl (Dilaudid) 10 mg in 50 mls @ 0 mls/hr IV .Q0M JONATHAN; Protocol Last Admin: 09/09/25 01:02 Dose: 0.3 mg/hr, 1.5 mls/hr Documented By: GIAN Nutrition (Parenteral) (Parenteral Nutrition) 1,200 mls @ 50 mls/hr IV .Q24H JONATHAN; Protocol Stop: 09/09/25 20:59 Last Admin: 09/08/25 21:38 Dose: 50 mls/hr Documented By: GIAN Diltiazem HCl 125 mg/ Sodium (Chloride) 125 mls @ 0 mls/hr IVCONT .Q0M JONATHAN; Protocol Nutrition (Parenteral) (Parenteral Nutrition) 1,680 mls @ 70 mls/hr IV .Q24H JONATHAN; Protocol Stop: 09/10/25 20:59 Loratadine (Loratadine 10 Mg Tablet) 10 mg PO DAILY [facility] On Hold: 09/06/25 09:44 Last Admin: 09/06/25 08:40 Dose: 10 mg Documented By: KETURAH Lorazepam (Lorazepam 0.5 Mg Tablet) 0.5 mg PO Q4H PRN PRN Reason: Anxiety Last Admin: 09/08/25 21:37 Dose: 0.5 mg Documented By: GIAN Losartan Potassium (Losartan Potassium 50 Mg Tablet) 100 mg PO DAILY [facility]; Protocol Last Admin: 09/09/25 08:44 Dose: 100 mg Documented By: ZOEY Magnesium Hydroxide (Milk Of Magnesia 30 Ml Oral.Susp) 30 ml PO DAILY PRN PRN Reason: Constipation Melatonin (Melatonin 3 Mg Tablet) 6 mg PO BEDTIME PRN PRN Reason: Insomnia Metoprolol Tartrate (Metoprolol Tartrate 25 Mg Tablet) 25 mg PO TID [facility]; Protocol Last Admin: 09/09/25 08:44 Dose: 25 mg Documented By: ZOEY Naloxone HCl (Naloxone Hcl 0.4 Mg/Ml Vial) 0.2 mg IVPUSH Q2M PRN PRN Reason: Excessive sedation or RR < 8 Omeprazole (Omeprazole 20 Mg Capsule.) 20 mg PO SUTUTHSA@0630 [facility] Last Admin: 09/08/25 05:54 Dose: 20 mg Documented By: NUSRAT Ondansetron HCl (Ondansetron Hcl 4 Mg/2 Ml Vial) 4 mg IVPUSH Q8H PRN PRN Reason: Nausea and Vomiting Last Admin: 09/06/25 14:19 Dose: 4 mg Documented By: DENIS Pharmacy Consult (Consult Rx Parenteral Nutrition Ordering) 1 each MISCELLANE DAILY PRN PRN Reason: Consult order Sodium Chloride (0.9 % Sodium Chloride Flush 3 Ml Syringe) 3 ml IVFLUSH QSHIFT [facility] Last Admin: 09/09/25 08:38 Dose: Not Given Documented By: ZOEY Non-Admin Reason: IV Running Trazodone HCl (Trazodone Hcl 50 Mg Tablet) 50 mg PO DAILY PRN PRN Reason: Insomnia Last Admin: 09/06/25 21:49 Dose: 50 mg Documented By: TALIENEYuliana Vitamin D (Cholecalciferol (Vitamin D3) 25 Mcg Tablet) 100 mcg PO DAILY [facility] On Hold: 09/06/25 09:43 Last Admin: 09/06/25 08:40 Dose: 100 mcg Documented By: RICCIAV Labs 09/09/25 06:16 09/09/25 06:16 Labs: Laboratory Results - last 24 hr 09/06/25 09/08/25 09/09/25 16:58 06:33 06:16 MCV 90.9 MCH 29.3 MCHC 32.3 RDW 15.6 Plt Count 55 L MPV 11.5 Immature Gran % (Auto) 0.7 H Neut % (Auto) 73.3 H Lymph % (Auto) 15.7 L [place] % (Auto) 7.5 Eos % (Auto) 2.5 Baso % (Auto) 0.3 Lymph # (Auto) 1.6 [place] # (Auto) 0.8 Eos # (Auto) 0.3 Baso # (Auto) 0.0 Abs Immat Gran (auto) 0.07 H Absolute Neuts (auto) 7.5 Absolute Nucleated RBC 0.000 Nucleated RBC % (auto) 0.0 Smear Tech's Comments VERIFIED Anion Gap 10 L Estim Creat Clear Calc 76.0 Estimated GFR > 60 Random Glucose 119 H Calcium 8.4 Phosphorus 2.7 Magnesium 2.1 Albumin 2.9 L Triglycerides 191 H TSH 1.47 Blood Type O Negative Antibody Screen NEGATIVE Procedures Date of Service Date of Service: 09/09/25 Progress Note: A&P Assessment and plan (1) Anti-phospholipid antibody syndrome: Status: Acute (2) Diverticulitis of large intestine with complication: Status: Acute (3) Afib: Status: Acute Plan S/p hand assisted laparoscopic left colectomy and small-bowel resection with abscess collection abdominal wall. CT yesterday showed dilated small and large bowel loops, decreased hemoperitoneum. ALAN with more old bloody drainage this morning and overall the output seems to be decreasing. AM labs improved, H/H trending up, platelets stable. Received 1U platelets yesterday. Patient has been NPO with an NG tube in place. NGT output appears to be more ice chips and less bilious but given his continued distention with no significant evidence of GI function, will keep in place for now. Cont TPN. PT and increasing activity. Cardiology consult, echo this morning for episode of A fib yesterday. Will await input. Time Spent With Patient Time: Total time managing care of this patient today ____ minutes. Quality Stroke Does the patient have a stroke diagnosis?: No VTE Prior VTE?: No VTE Risk Level:: Surgical - high VTE Device Contraindication: N/A - Device Ordered VTE Drug Contraindication: N/A - Med Ordered
--- NOTE | 2025-09-09 11:28 | P.PNIM_ITS ---
Subjective Subjective Date of Service: 09/09/25 Interval History: Blood pressure is better, no further episode of AFIB overall feel better Physical Exam 2 Vital Signs: Vital Signs: Last Vital Signs Temp 98.7 F 09/09/25 07:34 Pulse 90 09/09/25 07:34 Resp 20 09/09/25 07:34 BP 148/96 H 09/09/25 07:34 Pulse Ox 96 09/09/25 07:34 O2 Del Method Room Air 09/09/25 07:34 O2 Flow Rate 2 09/04/25 13:45 BMI result Body Mass Index 33.9 Const: Other: General: AO X 3, no acute distress Resp: CTA bilateral CVS: S1,S2,RRR GI: dressing in place, see surgery for detail Skin: No rash Neuro: motor grossly intact Psych: appropriate affect Objective Data Active Medications Acetaminophen (Acetaminophen 325 Mg Tablet) 650 mg PO Q6H PRN PRN Reason: Pain, Mild 1-3,fever,headache Last Admin: 09/02/25 19:44 Dose: 650 mg Documented By: BRONWYN Al Hydroxide/Mg Hydroxide (Magnesium Hydrox/Alum Hydrox 30 Ml Oral.Susp) 30 ml PO Q4H PRN PRN Reason: Heartburn Albuterol Sulfate (Albuterol Sulfate 90 Mcg 8 Gm Inhaler) 2 puff INHALE Q6H PRN PRN Reason: Shortness Of Breath Or Wheezing Amlodipine Besylate (Amlodipine Besylate 5 Mg Tablet) 5 mg PO DAILY [facility]; Protocol Last Admin: 09/09/25 08:44 Dose: 5 mg Documented By: ZOEY Calcium Carbonate (Calcium Carbonate 750 Mg Tab.Chew) 750 mg PO Q4H PRN PRN Reason: Heartburn Dronedarone (Dronedarone Hcl 400 Mg Tablet) 400 mg PO BID [facility] Fluticasone Propionate (Fluticasone Propionate Nasal 16 Gm [place]) 1 spray NOSTRIL-B DAILY PRN PRN Reason: Allergy Symptoms Furosemide (Furosemide 20 Mg Tablet) 20 mg PO DAILY [facility]; Protocol Last Admin: 09/09/25 08:44 Dose: 20 mg Documented By: ZOEY Hydromorphone HCl (Dilaudid) 10 mg in 50 mls @ 0 mls/hr IV .Q0M JONATHAN; Protocol Last Admin: 09/09/25 01:02 Dose: 0.3 mg/hr, 1.5 mls/hr Documented By: GIAN Nutrition (Parenteral) (Parenteral Nutrition) 1,200 mls @ 50 mls/hr IV .Q24H [facility]; Protocol Stop: 09/09/25 20:59 Last Admin: 09/08/25 21:38 Dose: 50 mls/hr Documented By: GIAN Diltiazem HCl 125 mg/ Sodium (Chloride) 125 mls @ 0 mls/hr IVCONT .Q0M JONATHAN; Protocol Nutrition (Parenteral) (Parenteral Nutrition) 1,680 mls @ 70 mls/hr IV .Q24H JONATHAN; Protocol Stop: 09/10/25 20:59 Loratadine (Loratadine 10 Mg Tablet) 10 mg PO DAILY [facility] On Hold: 09/06/25 09:44 Last Admin: 09/06/25 08:40 Dose: 10 mg Documented By: KETURAH Lorazepam (Lorazepam 0.5 Mg Tablet) 0.5 mg PO Q4H PRN PRN Reason: Anxiety Last Admin: 09/08/25 21:37 Dose: 0.5 mg Documented By: GIAN Losartan Potassium (Losartan Potassium 50 Mg Tablet) 100 mg PO DAILY [facility]; Protocol Last Admin: 09/09/25 08:44 Dose: 100 mg Documented By: ZOEY Magnesium Hydroxide (Milk Of Magnesia 30 Ml Oral.Susp) 30 ml PO DAILY PRN PRN Reason: Constipation Melatonin (Melatonin 3 Mg Tablet) 6 mg PO BEDTIME PRN PRN Reason: Insomnia Metoprolol Tartrate (Metoprolol Tartrate 25 Mg Tablet) 25 mg PO TID [facility]; Protocol Last Admin: 09/09/25 08:44 Dose: 25 mg Documented By: ZOEY Naloxone HCl (Naloxone Hcl 0.4 Mg/Ml Vial) 0.2 mg IVPUSH Q2M PRN PRN Reason: Excessive sedation or RR < 8 Omeprazole (Omeprazole 20 Mg Capsule.) 20 mg PO SUTUTHSA@0630 [facility] Last Admin: 09/08/25 05:54 Dose: 20 mg Documented By: NUSRAT Ondansetron HCl (Ondansetron Hcl 4 Mg/2 Ml Vial) 4 mg IVPUSH Q8H PRN PRN Reason: Nausea and Vomiting Last Admin: 09/06/25 14:19 Dose: 4 mg Documented By: DENIS Pharmacy Consult (Consult Rx Parenteral Nutrition Ordering) 1 each MISCELLANE DAILY PRN PRN Reason: Consult order Sodium Chloride (0.9 % Sodium Chloride Flush 3 Ml Syringe) 3 ml IVFLUSH QSHIFT JONATHAN Last Admin: 09/09/25 08:38 Dose: Not Given Documented By: ZOEY Non-Admin Reason: IV Running Trazodone HCl (Trazodone Hcl 50 Mg Tablet) 50 mg PO DAILY PRN PRN Reason: Insomnia Last Admin: 09/06/25 21:49 Dose: 50 mg Documented By: RANJANA Vitamin D (Cholecalciferol (Vitamin D3) 25 Mcg Tablet) 100 mcg PO DAILY JONATHAN On Hold: 09/06/25 09:43 Last Admin: 09/06/25 08:40 Dose: 100 mcg Documented By: RICCIAV Labs 09/09/25 06:16 09/09/25 06:16 Labs: Laboratory Results - last 24 hr 09/06/25 09/08/25 09/09/25 16:58 06:33 06:16 MCV 90.9 MCH 29.3 MCHC 32.3 RDW 15.6 Plt Count 55 L MPV 11.5 Immature Gran % (Auto) 0.7 H Neut % (Auto) 73.3 H Lymph % (Auto) 15.7 L [place] % (Auto) 7.5 Eos % (Auto) 2.5 Baso % (Auto) 0.3 Lymph # (Auto) 1.6 [place] # (Auto) 0.8 Eos # (Auto) 0.3 Baso # (Auto) 0.0 Abs Immat Gran (auto) 0.07 H Absolute Neuts (auto) 7.5 Absolute Nucleated RBC 0.000 Nucleated RBC % (auto) 0.0 Smear Tech's Comments VERIFIED Anion Gap 10 L Estim Creat Clear Calc 76.0 Estimated GFR > 60 Random Glucose 119 H Calcium 8.4 Phosphorus 2.7 Magnesium 2.1 Albumin 2.9 L Triglycerides 191 H TSH 1.47 Blood Type O Negative Antibody Screen NEGATIVE Assessment and Plan (1) Afib: Status: Acute Plan Patient is a 64-year-old male with past medical history significant for antiphospholipid syndrome on Coumadin with recent HIT, HTN and asthma, admitted for Sigmoid diverticulitis with abscess, obstruction s/p hand assisted laparoscopic left colectomy, mobilization of splenic flexure, small-bowel resection, drainage of abscess on 09/04/25, post op complicated by ALAN and abscess cavity with some sanguinous output, thrombocytopenia, elevated blood pressure and now New AFIB with RVR S/p hand assisted laparoscopic left colectomy and small-bowel resection with abscess collection abdominal wall with some bleeding complication post op futher management per surgery, New onset AFIB with RVR, back in sinus continue lopressore, stating Multaq per card recommendation echo At this time unable to anticoagulation in light of plat of on low sidey, and ongoing bleeing complication, clotting rate at this point should be low-- this was discussed with hematology Elevated blood pressure, usually controlled on Losartan alone, probably pain, anxiety component Norvasc and metoprolol added with improvement and further adjustment as needed Antiphospholipid syndrome, usually on coumadin on hold at this point in light of post op bleeding complication and platlet trednding down markedly restarting will need to be a joint decision with input from surgery and hematology HTN - losartan, Lasix and Norvasc asthma, unspecified - fluticasone, albuterol, cetirizine Pyoderma gangrenosum - patient's to do wound care dvt prophylaxis: device Quality Stroke Does the patient have a stroke diagnosis?: No VTE Prior VTE?: No VTE Risk Level:: Surgical - high VTE Device Contraindication: N/A - Device Ordered VTE Drug Contraindication: N/A - Med Ordered
--- NOTE | 2025-09-09 14:23 | MHC.CM.PN ---
EMR REVIEWED, PT EVALUATED PATIENT AND RECOMMEND ACUTE REHAB. THIS CM MET WITH PATIENT TO DISCUSS PT RECS AND DISCHARGE PLANS. PER PATIENT HE DOES NOT WANT TO GO TO ACUTE REHAB, NOR DOES HE WANT/NEED VNA SERVICES. 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 PATIENT ALSO MENTIONED THAT HIS DAUGHTER IS A PHYSICAL THERAPIST, AND HE A SON WHO IS AN MD, AND A SON WHO IS A PA. DP: HOME SELF-CARE ONCE MEDICALLY CLEARED.
--- NOTE | 2025-09-09 14:57 | PM.CNCAR ---
History of Present Illness History of Present Illness Date of Service: 09/09/25 Requesting physician: Darrick Pavon Consult reason: atrial fibrillation Chief complaint: diverticulitis Narrative: I was requested to see Alejandro in cardiology consultation today for development of atrial fibrillation last night. Patient is 65-year-old male with multiple medical problems and has had long hospitalization about a month ago and was recently discharged and came back to the hospital again in his currently NPO. Patient last night developed atrial fibrillation with rapid ventricular response. Patient said he felt fluttering in his chest and anxious and was given rate lowering medication subsequently converted to sinus rhythm after 3 hours. He is now remained in sinus rhythm. Feels better. Continues to have GI issues. He does get oral medications through the NG tube and post medications the NG tube is clamped for about 45 minutes. 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 He has prior history of antiphospholipid antibody syndrome and has been on oral anticoagulation for warfarin greater than 20 years and had DVT in the past. He also has history of hypertension, COPD. He has never had any cardiac issues including atrial fibrillation past. No history of congestive heart failure. No history of coronary artery disease. Review of Systems Constitutional: Constitutional: Reports malaise and Reports weakness Eyes: Eyes: Reports no additional eye complaints ENT: Reports system reviewed and no additional complaints, except as documented Cardiovascular: Cardiovascular: Denies chest pain, Denies chest pain at rest, Denies lightheadedness, Denies Loss of Consciousness, Reports palpitations, Denies dyspnea and Denies dyspnea on exertion Respiratory: Respiratory: Reports no additional respiratory complaints, Denies dyspnea and Denies dyspnea on exertion Gastrointestinal: Gastrointestinal: Reports bloating Musculoskeletal: Musculoskeletal: Reports no additional musculoskeletal complaints Integumentary/Breasts: Skin/Breast: Reports system reviewed and no additional complaints, except as docu Neurologic: Reports weakness Psychiatric: Psychiatric: Reports no additional psychiatric complaints Endocrine: Endocrine: Reports palpitations PMFSH Past Medical History Medical History Antiphospholipid syndrome (Unknown) Pyoderma gangrenosum Surgical History Surgical History H/O right inguinal hernia repair Social History Social History Household Members: Spouse Housing: House Do you presently have visiting nurse or other home services: No Patient Tobacco Use Status: Never used Tobacco Advance Directives Date on File: 08/19/25 service: No Meds Allergies Allergy/AdvReac Type Severity Reaction Status Date / Time heparin Allergy Severe heparin Verified 08/28/25 10:15 induced thrombocytopenia bacitracin Allergy Unknown Verified 08/28/25 10:15 celecoxib (From Celebrex) Allergy Unknown Verified 08/28/25 10:15 cephalexin (From Keflex) Allergy Unknown Verified 08/28/25 10:15 sulfacetamide (From Allergy Unknown Verified 08/28/25 10:15 Sulfamide) sulfamethoxazole (From Allergy Unknown Verified 08/28/25 10:15 Bactrim) trimethoprim (From Bactrim) Allergy Unknown Verified 08/28/25 10:15 Active Medications: Current Medications Acetaminophen (Acetaminophen 325 Mg Tablet) 650 mg PO Q6H PRN PRN Reason: Pain, Mild 1-3,fever,headache Last Admin: 09/02/25 19:44 Dose: 650 mg Al Hydroxide/Mg Hydroxide (Magnesium Hydrox/Alum Hydrox 30 Ml Oral.Susp) 30 ml PO Q4H PRN PRN Reason: Heartburn Albuterol Sulfate (Albuterol Sulfate 90 Mcg 8 Gm Inhaler) 2 puff INHALE Q6H PRN PRN Reason: Shortness Of Breath Or Wheezing Amlodipine Besylate (Amlodipine Besylate 5 Mg Tablet) 5 mg PO DAILY [facility]; Protocol Last Admin: 09/09/25 08:44 Dose: 5 mg Calcium Carbonate (Calcium Carbonate 750 Mg Tab.Chew) 750 mg PO Q4H PRN PRN Reason: Heartburn Dronedarone (Dronedarone Hcl 400 Mg Tablet) 400 mg PO BID [facility] Last Admin: 09/09/25 11:38 Dose: 400 mg Fluticasone Propionate (Fluticasone Propionate Nasal 16 Gm [place]) 1 spray NOSTRIL-B DAILY PRN PRN Reason: Allergy Symptoms Furosemide (Furosemide 20 Mg Tablet) 20 mg PO DAILY [facility]; Protocol Last Admin: 09/09/25 08:44 Dose: 20 mg Hydromorphone HCl (Dilaudid) 10 mg in 50 mls @ 0 mls/hr IV .Q0M JONATHAN; Protocol Last Admin: 09/09/25 01:02 Dose: 0.3 mg/hr, 1.5 mls/hr Nutrition (Parenteral) (Parenteral Nutrition) 1,200 mls @ 50 mls/hr IV .Q24H [facility]; Protocol Stop: 09/09/25 20:59 Last Admin: 09/08/25 21:38 Dose: 50 mls/hr Diltiazem HCl 125 mg/ Sodium (Chloride) 125 mls @ 0 mls/hr IVCONT .Q0M [facility]; Protocol Nutrition (Parenteral) (Parenteral Nutrition) 1,680 mls @ 70 mls/hr IV .Q24H [facility]; Protocol Stop: 09/10/25 20:59 Loratadine (Loratadine 10 Mg Tablet) 10 mg PO DAILY [facility] On Hold: 09/06/25 09:44 Last Admin: 09/06/25 08:40 Dose: 10 mg Lorazepam (Lorazepam 0.5 Mg Tablet) 0.5 mg PO Q4H PRN PRN Reason: Anxiety Last Admin: 09/08/25 21:37 Dose: 0.5 mg Losartan Potassium (Losartan Potassium 50 Mg Tablet) 100 mg PO DAILY [facility]; Protocol Last Admin: 09/09/25 08:44 Dose: 100 mg Magnesium Hydroxide (Milk Of Magnesia 30 Ml Oral.Susp) 30 ml PO DAILY PRN PRN Reason: Constipation Melatonin (Melatonin 3 Mg Tablet) 6 mg PO BEDTIME PRN PRN Reason: Insomnia Metoprolol Tartrate (Metoprolol Tartrate 25 Mg Tablet) 25 mg PO TID [facility]; Protocol Last Admin: 09/09/25 14:50 Dose: 25 mg Naloxone HCl (Naloxone Hcl 0.4 Mg/Ml Vial) 0.2 mg IVPUSH Q2M PRN PRN Reason: Excessive sedation or RR < 8 Omeprazole (Omeprazole 20 Mg Capsule.Dr) 20 mg PO SUTUTHSA@0630 [facility] Last Admin: 09/08/25 05:54 Dose: 20 mg Ondansetron HCl (Ondansetron Hcl 4 Mg/2 Ml Vial) 4 mg IVPUSH Q8H PRN PRN Reason: Nausea and Vomiting Last Admin: 09/06/25 14:19 Dose: 4 mg Pharmacy Consult (Consult Rx Parenteral Nutrition Ordering) 1 each MISCELLANE DAILY PRN PRN Reason: Consult order Sodium Chloride (0.9 % Sodium Chloride Flush 3 Ml Syringe) [facility] Last Admin: 09/09/25 08:38 Dose: Not Given Trazodone HCl (Trazodone Hcl 50 Mg Tablet) 50 mg PO DAILY PRN PRN Reason: Insomnia Last Admin: 09/06/25 21:49 Dose: 50 mg Vitamin D (Cholecalciferol (Vitamin D3) 25 Mcg Tablet) 100 mcg PO DAILY [facility] On Hold: 09/06/25 09:43 Last Admin: 09/06/25 08:40 Dose: 100 mcg Home Medications ?Medication ?Instructions ?Recorded ?Confirmed ?Last Taken ?Type Tumeric 500 mg PO DAILY 08/10/25 09/01/25 Unknown History albuterol sulfate 90 mcg/actuation 2 inh inhalation Q6H PRN Shortness 08/10/25 09/01/25 Unknown History breath activated powder inhaler Of Breath Or Wheezing cetirizine 10 mg tablet 10 mg PO DAILY 08/10/25 09/01/25 Unknown History cholecalciferol (vitamin D3) 25 100 mcg PO DAILY 08/10/25 09/01/25 Unknown History mcg (1,000 unit) chewable tablet (Vitamin D3) clobetasol 0.05 % topical cream 1 g topical DAILY 08/10/25 09/01/25 Unknown History fluticasone propionate 50 1 spray intranasal DAILY PRN 08/10/25 09/01/25 Unknown History mcg/actuation nasal Allergy Symptoms spray,suspension furosemide 40 mg tablet 40 mg PO DAILY 08/10/25 09/01/25 Unknown History losartan 100 mg tablet 100 mg PO DAILY 08/10/25 09/01/25 Unknown History omeprazole 20 mg capsule,delayed 20 mg PO SUTUTHSA@0630 08/10/25 09/01/25 Unknown History release trazodone 50 mg tablet 50 mg PO DAILY PRN Insomnia 08/10/25 09/01/25 Unknown History warfarin 5 mg tablet 5 mg PO SUTUTHSA 08/10/25 09/01/25 Unknown History warfarin 5 mg tablet 10 mg PO MOWEFR 08/10/25 09/01/25 Unknown History Physical Exam Vital Signs: Vital Signs: Last Vital Signs Temp 98.7 F 09/09/25 07:34 Pulse 90 09/09/25 07:34 Resp 20 09/09/25 07:34 BP 148/96 H 09/09/25 07:34 Pulse Ox 96 09/09/25 07:34 O2 Del Method Room Air 09/09/25 07:34 O2 Flow Rate 2 09/04/25 13:45 BMI result Body Mass Index 33.9 Const: General: cooperative, comfortable, alert, awake, ill appearing and tired appearing Nutritional Appearance: obese Orientation/consciousness: patient oriented x3 HEENT: Head: Yes normocephalic and Yes atraumatic Neck: Neck: Yes trachea midline, Yes supple and Yes no JVD Resp: Effort & Inspection: normal respiratory effort Auscultation: clear to auscultation bilaterally and diminished lung sounds Cardio: Jugular venous distension: no JVD Rate: regular rate Rhythm: regular rhythm Heart sounds: S1 normal heart sound present, S2 normal heart sound present, no click, no gallops and no murmurs GI: Inspection: Yes distended Auscultation: Hypoactive bowel sounds present Skin: General skin exam: no rashes or lesions noted Neuro: General: patient oriented x3 and no focal motor deficits Extrem: General: Yes no clubbing, cyanosis or edema Objective Labs and Meds 09/09/25 06:16 09/09/25 06:16 Lab results: Laboratory Results - last 24 hr 09/08/25 09/09/25 06:33 06:16 WBC 10.2 RBC 3.17 L Hgb 9.3 L Hct 28.8 L MCV 90.9 MCH 29.3 MCHC 32.3 RDW 15.6 Plt Count 55 L MPV 11.5 Immature Gran % (Auto) 0.7 H Neut % (Auto) 73.3 H Lymph % (Auto) 15.7 L [place] % (Auto) 7.5 Eos % (Auto) 2.5 Baso % (Auto) 0.3 Lymph # (Auto) 1.6 [place] # (Auto) 0.8 Eos # (Auto) 0.3 Baso # (Auto) 0.0 Abs Immat Gran (auto) 0.07 H Absolute Neuts (auto) 7.5 Absolute Nucleated RBC 0.000 Nucleated RBC % (auto) 0.0 Smear Tech's Comments VERIFIED Sodium 138 Potassium 3.9 Chloride 103 Carbon Dioxide 29 Anion Gap 10 L BUN 29 H Creatinine 1.16 Estim Creat Clear Calc 76.0 Estimated GFR > 60 Random Glucose 119 H Calcium 8.4 Phosphorus 2.7 Magnesium 2.1 Albumin 2.9 L Triglycerides 191 H TSH 1.47 Assessment and Plan (1) Paroxysmal atrial fibrillation: Status: Acute Paroxysmal atrial fibrillation this middle-aged man with underlying multiple risk factors including obesity, hypertension as well as COPD that makes him prone to get atrial fibrillation, triggered atrial fibrillation related to his underlying medical/surgical illness. Atrial fibrillation subsided after rate control. Given his complicated medical/surgical history I think it would be best to pursue rhythm control approach with antiarrhythmic strip prevent recurrent atrial fibrillation that may impact his overall length of stay as well as outcomes. Will start him on Multaq 400 mg b.i.d., make sure that his NG tube is clamped after the dose. He had an echocardiogram which will be reviewed. He is currently not on warfarin therapy in his currently being treated with direct thrombin inhibitors. I would suggest to give him therapeutic dose of direct thrombin inhibitors. Continue treatment of his hypertension. Continue full disclosure cardiac telemetry. Will follow with you Procedures Date of Service Date of Service: 09/09/25
[2025-09-09 16:00] VITALS: BP 124/90; PULSE 92; RESP 20; TEMP 36.8; O2SAT 95
--- NOTE | 2025-09-09 18:06 | PC.NURSE ---
NG tube residual checked around 1800, 20 mL noted. Pt denies increased abdominal pain. NG tube removed per order.
[2025-09-09 19:18] VITALS: BP 128/92; PULSE 76; RESP 16; TEMP 37.1; O2SAT 96
[2025-09-09 20:28] VITALS: BP 128/92; PULSE 91
[2025-09-09] MEDS: Parenteral Nutrition 1,680 ML 70 ML IV (23:03)
[2025-09-10] VITALS (7 sets, daily range): BP systolic 119–133; BP diastolic 81–92; PULSE 75–84; RESP 16–20; TEMP 36.7–37.1; O2SAT 94–97
[2025-09-10 07:24] LABS: Albumin Level 2.9 g/dL (3.5-5.0); Anion Gap 13 (12-20); Blood Urea Nitrogen 30 mg/dL (9-16); Calcium 8.6 mg/dL (8.4-10.2); Carbon Dioxide 27 mmol/L (22-29); Chloride 102 mmol/L (96-108); Creatinine Clr Calc Pharmacy 74.1; Estimated Glomerular Filt Rate > 60; Magnesium 1.9 mg/dL (1.6-2.6); Potassium 4.4 mmol/L (3.3-5.1); Sodium 138 mmol/L (135-145)
[2025-09-10] MEDS: 0.9 % Sodium Chloride Flush 3 ML SYRINGE IVFLUSH (08:07)
--- NOTE | 2025-09-10 09:01 | MHC.CLN ---
F/U CONTINUES WITH NPO REVIEWED LABS DISCUSSED WITH PHARMACY CONTINUE TPN AT 70ML/HR WITH 42G LIPIDS PROVIDES 1613 TOTAL KCALS (23KCALS/KG), 252G DEXTROSE, 84G PROTEIN (1.2G/KG) REPLETE LYTES NEEDED FOLLOWING WITH TEAM
--- NOTE | 2025-09-10 09:59 | PC.NURSE ---
Pt alert and oriented x 4. Reports abdominal discomfort r/t bloating, distention, no nausea. Reported some SOB after walking to toilet, but reports that it was probably related to gas. Dark, liquid stool. Yeast infection in gluteal cleft. Right leg is dressed, clean, dry, intact. 40 mls bloody fluid out of ALAN drain. ALAN drain is leaking around the site, dressing to be changed. 1+ pitting edema to bilateral lower legs.
--- NOTE | 2025-09-10 10:26 | HO.PM.IMPN ---
Subjective Subjective Date of Service: 09/10/25 Interval History: BP is well controlled Remains in sinus rythm Has had multiple bowel movment, Plat is above 50' Physical Exam Vital Signs: Vital Signs: Last Vital Signs Temp 98.4 F 09/10/25 06:57 Pulse 82 09/10/25 06:57 Resp 20 09/10/25 06:57 BP 133/92 H 09/10/25 06:57 Pulse Ox 97 09/10/25 06:57 O2 Del Method Room Air 09/10/25 06:57 O2 Flow Rate 2 09/04/25 13:45 BMI result Body Mass Index 33.9 Const: Other: General: AO X 3, no acute distress Resp: CTA bilateral CVS: S1,S2,RRR GI: dressing in place, see surgery for detail Skin: No rash Neuro: motor grossly intact Psych: appropriate affect Objective Data Active Medications Acetaminophen (Acetaminophen 325 Mg Tablet) 650 mg PO Q6H PRN PRN Reason: Pain, Mild 1-3,fever,headache Last Admin: 09/02/25 19:44 Dose: 650 mg Documented By: BRONWYN Al Hydroxide/Mg Hydroxide (Magnesium Hydrox/Alum Hydrox 30 Ml Oral.Susp) 30 ml PO Q4H PRN PRN Reason: Heartburn Albuterol Sulfate (Albuterol Sulfate 90 Mcg 8 Gm Inhaler) 2 puff INHALE Q6H PRN PRN Reason: Shortness Of Breath Or Wheezing Amlodipine Besylate (Amlodipine Besylate 5 Mg Tablet) 5 mg PO DAILY [facility]; Protocol Last Admin: 09/10/25 09:26 Dose: 5 mg Documented By: GABO Calcium Carbonate (Calcium Carbonate 750 Mg Tab.Chew) 750 mg PO Q4H PRN PRN Reason: Heartburn Dronedarone (Dronedarone Hcl 400 Mg Tablet) 400 mg PO BID [facility] Last Admin: 09/10/25 09:27 Dose: 400 mg Documented By: GABO Fluticasone Propionate (Fluticasone Propionate Nasal 16 Gm [place]) 1 spray NOSTRIL-B DAILY PRN PRN Reason: Allergy Symptoms Furosemide (Furosemide 20 Mg Tablet) 20 mg PO DAILY [facility]; Protocol Last Admin: 09/10/25 09:27 Dose: 20 mg Documented By: GABO Hydromorphone HCl (Dilaudid) 10 mg in 50 mls @ 0 mls/hr IV .Q0M [facility]; Protocol Last Admin: 09/09/25 15:53 Dose: 0.3 mg/hr, 1.5 mls/hr Documented By: ZOEY Diltiazem HCl 125 mg/ Sodium (Chloride) 125 mls @ 0 mls/hr IVCONT .Q0M JONATHAN; Protocol Nutrition (Parenteral) (Parenteral Nutrition) 1,680 mls @ 70 mls/hr IV .Q24H JONATHAN; Protocol Stop: 09/10/25 20:59 Last Admin: 09/09/25 23:03 Dose: 70 mls/hr Documented By: BARRON Loratadine (Loratadine 10 Mg Tablet) 10 mg PO DAILY [facility] On Hold: 09/06/25 09:44 Last Admin: 09/06/25 08:40 Dose: 10 mg Documented By: KETURAH Lorazepam (Lorazepam 0.5 Mg Tablet) 0.5 mg PO Q4H PRN PRN Reason: Anxiety Last Admin: 09/08/25 21:37 Dose: 0.5 mg Documented By: GIAN Losartan Potassium (Losartan Potassium 50 Mg Tablet) 100 mg PO DAILY [facility]; Protocol Last Admin: 09/10/25 09:26 Dose: 100 mg Documented By: GABO Magnesium Hydroxide (Milk Of Magnesia 30 Ml Oral.Susp) 30 ml PO DAILY PRN PRN Reason: Constipation Melatonin (Melatonin 3 Mg Tablet) 6 mg PO BEDTIME PRN PRN Reason: Insomnia Metoprolol Tartrate (Metoprolol Tartrate 25 Mg Tablet) 25 mg PO TID [facility]; Protocol Last Admin: 09/10/25 09:27 Dose: 25 mg Documented By: GABO Naloxone HCl (Naloxone Hcl 0.4 Mg/Ml Vial) 0.2 mg IVPUSH Q2M PRN PRN Reason: Excessive sedation or RR < 8 Omeprazole (Omeprazole 20 Mg Capsule.) 20 mg PO SUTUTHSA@0630 [facility] Last Admin: 09/10/25 06:02 Dose: 20 mg Documented By: BARRON Ondansetron HCl (Ondansetron Hcl 4 Mg/2 Ml Vial) 4 mg IVPUSH Q8H PRN PRN Reason: Nausea and Vomiting Last Admin: 09/06/25 14:19 Dose: 4 mg Documented By: DENIS Pharmacy Consult (Consult Rx Parenteral Nutrition Ordering) 1 each MISCELLANE DAILY PRN PRN Reason: Consult order Sodium Chloride (0.9 % Sodium Chloride Flush 3 Ml Syringe) 3 ml IVFLUSH QSHIFT [facility] Last Admin: 09/10/25 08:07 Dose: 3 ml Documented By: GABO Trazodone HCl (Trazodone Hcl 50 Mg Tablet) 50 mg PO DAILY PRN PRN Reason: Insomnia Last Admin: 09/06/25 21:49 Dose: 50 mg Documented By: RANJANA Vitamin D (Cholecalciferol (Vitamin D3) 25 Mcg Tablet) 100 mcg PO DAILY JONATHAN On Hold: 09/06/25 09:43 Last Admin: 09/06/25 08:40 Dose: 100 mcg Documented By: KETURAH Labs 09/09/25 06:16 09/10/25 06:19 Labs: Laboratory Results - last 24 hr 09/10/25 06:19 Anion Gap 13 Estim Creat Clear Calc 74.1 Estimated GFR > 60 Random Glucose 109 Calcium 8.6 Phosphorus 3.8 Magnesium 1.9 Albumin 2.9 L Assessment and Plan (1) Afib: Status: Acute Plan Patient is a 64-year-old male with past medical history significant for antiphospholipid syndrome on Coumadin with recent HIT, HTN and asthma, admitted for Sigmoid diverticulitis with abscess, obstruction s/p hand assisted laparoscopic left colectomy, mobilization of splenic flexure, small-bowel resection, drainage of abscess on 09/04/25, post op complicated by ALAN and abscess cavity with some sanguinous output, thrombocytopenia, elevated blood pressure and now New AFIB with RVR S/p hand assisted laparoscopic left colectomy and small-bowel resection with abscess collection abdominal wall with some bleeding complication post op futher management per surgery, on TPN at this time, surgery to advance diet New onset AFIB with RVR, transient and remains in sinus at 36 hrs continue Martha michaeltaq per card recommendation echo EF 60 to 65 If no ongoing bleeding issues with surgery and no ancipated procedure, can restart on coumadin today HTN, Elevated blood pressure, usually controlled on Losartan alone, probably pain, anxiety component Norvasc and metoprolol added with improvement and further adjustment Antiphospholipid syndrome, usually on coumadin on hold at this point in light of post op bleeding complication, plat is trending up so can be restarted on coumading, but unclear if needs brigding with agatroban asthma, unspecified - fluticasone, albuterol, cetirizine Pyoderma gangrenosum - patient's to do wound care dvt prophylaxis: device Will continue to follow Quality Stroke Does the patient have a stroke diagnosis?: No VTE Prior VTE?: No VTE Risk Level:: Surgical - high VTE Device Contraindication: N/A - Device Ordered VTE Drug Contraindication: N/A - Med Ordered
--- NOTE | 2025-09-10 10:58 | PM.PNGS ---
Subjective Subjective Date of Service: 09/10/25 Interval history: Patient reports several liquid bowel movements since this morning. Has been passing lots of gas which is helping his abdominal distention. Tolerated having the nasogastric tube removed. Would like to start clear liquids today. He reports a buttock rash, yeast infection. Physical Exam Vital Signs: Vital Signs: Last Vital Signs Temp 98.4 F 09/10/25 06:57 Pulse 82 09/10/25 06:57 Resp 20 09/10/25 06:57 BP 133/92 H 09/10/25 06:57 Pulse Ox 97 09/10/25 06:57 O2 Del Method Room Air 09/10/25 06:57 O2 Flow Rate 2 09/04/25 13:45 BMI result Body Mass Index 33.9 Const: General: anxious and tired appearing Nutritional Appearance: well nourished Orientation/consciousness: patient oriented x3 Resp: Effort & Inspection: normal respiratory effort, no audible wheezes, no cough and no respiratory distress GI: Other: Distended, non tympanitic, bowel sounds present, abdominal incision is clean and intact. ALAN with dark thin fluid, some bleeding from surrounding drain. Skin: Other: Warm and dry, Neuro: General: patient oriented x3 Objective Data Active Medications Acetaminophen (Acetaminophen 325 Mg Tablet) 650 mg PO Q6H PRN PRN Reason: Pain, Mild 1-3,fever,headache Last Admin: 09/02/25 19:44 Dose: 650 mg Documented By: BRONWYN Al Hydroxide/Mg Hydroxide (Magnesium Hydrox/Alum Hydrox 30 Ml Oral.Susp) 30 ml PO Q4H PRN PRN Reason: Heartburn Albuterol Sulfate (Albuterol Sulfate 90 Mcg 8 Gm Inhaler) 2 puff INHALE Q6H PRN PRN Reason: Shortness Of Breath Or Wheezing Amlodipine Besylate (Amlodipine Besylate 5 Mg Tablet) 5 mg PO DAILY [facility]; Protocol Last Admin: 09/10/25 09:26 Dose: 5 mg Documented By: GABO Calcium Carbonate (Calcium Carbonate 750 Mg Tab.Chew) 750 mg PO Q4H PRN PRN Reason: Heartburn Dronedarone (Dronedarone Hcl 400 Mg Tablet) 400 mg PO BID [facility] Last Admin: 09/10/25 09:27 Dose: 400 mg Documented By: GABO Fluticasone Propionate (Fluticasone Propionate Nasal 16 Gm [place]) 1 spray NOSTRIL-B DAILY PRN PRN Reason: Allergy Symptoms Furosemide (Furosemide 20 Mg Tablet) 20 mg PO DAILY JONATHAN; Protocol Last Admin: 09/10/25 09:27 Dose: 20 mg Documented By: GABO Hydromorphone HCl (Dilaudid) 10 mg in 50 mls @ 0 mls/hr IV .Q0M JONATHAN; Protocol Last Admin: 09/09/25 15:53 Dose: 0.3 mg/hr, 1.5 mls/hr Documented By: ZOEY Diltiazem HCl 125 mg/ Sodium (Chloride) 125 mls @ 0 mls/hr IVCONT .Q0M JONATHAN; Protocol Nutrition (Parenteral) (Parenteral Nutrition) 1,680 mls @ 70 mls/hr IV .Q24H JONATHAN; Protocol Stop: 09/10/25 20:59 Last Admin: 09/09/25 23:03 Dose: 70 mls/hr Documented By: BARRON Loratadine (Loratadine 10 Mg Tablet) 10 mg PO DAILY [facility] On Hold: 09/06/25 09:44 Last Admin: 09/06/25 08:40 Dose: 10 mg Documented By: KETURAH Lorazepam (Lorazepam 0.5 Mg Tablet) 0.5 mg PO Q4H PRN PRN Reason: Anxiety Last Admin: 09/08/25 21:37 Dose: 0.5 mg Documented By: GIAN Losartan Potassium (Losartan Potassium 50 Mg Tablet) 100 mg PO DAILY [facility]; Protocol Last Admin: 09/10/25 09:26 Dose: 100 mg Documented By: GABO Magnesium Hydroxide (Milk Of Magnesia 30 Ml Oral.Susp) 30 ml PO DAILY PRN PRN Reason: Constipation Melatonin (Melatonin 3 Mg Tablet) 6 mg PO BEDTIME PRN PRN Reason: Insomnia Metoprolol Tartrate (Metoprolol Tartrate 25 Mg Tablet) 25 mg PO TID [facility]ATH[facility]; Protocol Last Admin: 09/10/25 09:27 Dose: 25 mg Documented By: GABO Naloxone HCl (Naloxone Hcl 0.4 Mg/Ml Vial) 0.2 mg IVPUSH Q2M PRN PRN Reason: Excessive sedation or RR < 8 Nystatin (Nystatin Powder 15 Gm Bottle) 1 appl TOPICAL BID JONATHAN; Protocol Omeprazole (Omeprazole 20 Mg Capsule.) 20 mg PO SUTUTHSA@0630 [facility] Last Admin: 09/10/25 06:02 Dose: 20 mg Documented By: BARRON Ondansetron HCl (Ondansetron Hcl 4 Mg/2 Ml Vial) 4 mg IVPUSH Q8H PRN PRN Reason: Nausea and Vomiting Last Admin: 09/06/25 14:19 Dose: 4 mg Documented By: DENIS Pharmacy Consult (Consult Rx Parenteral Nutrition Ordering) 1 each MISCELLANE DAILY PRN PRN Reason: Consult order Sodium Chloride (0.9 % Sodium Chloride Flush 3 Ml Syringe) 3 ml IVFLUSH QSHIFT [facility] Last Admin: 09/10/25 08:07 Dose: 3 ml Documented By: GABO Trazodone HCl (Trazodone Hcl 50 Mg Tablet) 50 mg PO DAILY PRN PRN Reason: Insomnia Last Admin: 09/06/25 21:49 Dose: 50 mg Documented By: RANJANA Vitamin D (Cholecalciferol (Vitamin D3) 25 Mcg Tablet) 100 mcg PO DAILY [facility] On Hold: 09/06/25 09:43 Last Admin: 09/06/25 08:40 Dose: 100 mcg Documented By: KETURAH Warfarin Sodium (Warfarin Sodium 10 Mg Tablet) 10 mg PO DAILY@1800 [facility] Labs 09/09/25 06:16 09/10/25 06:19 Labs: Laboratory Results - last 24 hr 09/10/25 06:19 Anion Gap 13 Estim Creat Clear Calc 74.1 Estimated GFR > 60 Random Glucose 109 Calcium 8.6 Phosphorus 3.8 Magnesium 1.9 Albumin 2.9 L Procedures Date of Service Date of Service: 09/10/25 Progress Note: A&P Assessment and plan (1) Thrombocytopenia: Status: Chronic (2) Anti-phospholipid antibody syndrome: Status: Acute (3) Diverticulitis of large intestine with complication: Status: Acute Plan POD 6 following hand assisted laparoscopic descending colon resection and small-bowel resection for diverticular abscess. No evidence of any ongoing bleeding at this time. Old blood thin bloody is being produced by the ALAN. NG tube removed yesterday after clamping trial. He is passing stool and gas today and feels much improved. I will restart his Coumadin for the antiphospholipid antibody syndrome. Recheck labs in a.m. Start clear liquids with supplements. We will slowly advance diet as tolerated. I encouraged out of bed and ambulation. Time Spent With Patient Time: Total time managing care of this patient today ____ minutes. Quality Stroke Does the patient have a stroke diagnosis?: No VTE Prior VTE?: No VTE Risk Level:: Surgical - high VTE Device Contraindication: N/A - Device Ordered VTE Drug Contraindication: N/A - Med Ordered
[2025-09-10] MEDS: HYDROmorphone HCl/NS 10 MG/50 ML PIGGYBACK 1.5 MG IV (11:34)
--- NOTE | 2025-09-10 11:41 | PM.HEMONCPN ---
Medical Summary - Medical Summary Date of Service: 09/10/25 Chief complaint: Liquid bowel movements Primary Care Provider: Jeremías Knox MD Medical Summary: DIAGNOSIS: Antiphospholipid antibody syndrome. On warfarin. Graphite Grinder Utilized?: No - Slovenian Speaking Interval History Interval history: Alejandro Correa is a 64 year old gentleman, DAY 1 post op. He is holding stable. GI:Distended, incisions clean and intact. ALAN with some bloody discharge from the incision site. Output is mostly sanguinous, no clotting approximately 60 mL recorded. PRESENTING HISTORY: PMH significant for antiphospholipid syndrome on Coumadin, hypertension. He was recently admitted [place] [facility]25-08/18/25 for perforated diverticulitis managed nonoperatively with IV abx. He subsequently developed a SBO as he had a loop of small bowel that appeared to be tethered to the area of diverticulitis. He required an NGT for decompression and bowel rest and PPN and this eventually resolved. His coumadin was held during this time for possible surgical intervention and he was bridged with heparin drip. He however had a significant drop in his platelets during this time and the heparin was stopped with concern for HIT. They decided to resume his coumadin alone to bring INR up, given plat still low. His diverticulitis improved with supportive measures and he was discharged on a course of Augmentin. He was seen in the office on 08/28/25, by Gosia. At this time he reported intermittent fevers with highest of 101 a few days following discharge. He had doxycycline at home from previous treatment of his pyoderma gangrenosum of his left leg which he started taking. His fevers began to improve. His augmentin was also extended. He now reports his temp is 99 and he takes it multiple times throughout the day. He reports loose stools every few hours throughout the day. He has some occasional nausea and his appetite is diminished. He also reports continued LLQ and suprapubic pain. He still needs to take oxycodone which he tries to limit to just nighttime as he is not sleeping well. He had been taking tylenol 1000mg q6h but decreased his dosing. He was found to have an INR of 5.5. at his coumadin clinic at [facility] and his coumadin was adjusted with improvement. On his last lab work, his WBC count was improved to 14 and platelets were up to 121. Patient underwent and a sister laparoscopic descending colon resection and small bowel resection for diverticular disease. NG tube was removed yesterday. He is now passing stool and gas. ALAN is only producing old blood. He states that he has right arm was swollen 3 days ago, with arm elevation it has come down. Medical History:) Antiphospholipid syndrome. Pyoderma gangrenosum Social History: Living Situation History: Household Members: Spouse Housing: House Do you presently have visiting nurse or other home services: No Alcohol History Details: 1. How often do you have a drink containing alcohol?: b. Monthly or less 2. How many drinks containing alcohol do you have on a typical day when you are drinking?: a. 1 or 2 Review of Systems - Neurologic Reports no additional neurologic complaints, Denies confusion, Denies headache(s), Reports weakness PMFSH Medical History: Medical History (Last Reviewed 09/09/25 @ 15:01 by Feng Gracia MD) Antiphospholipid syndrome Onset Date: Unknown Pyoderma gangrenosum Functional capacity: wheelchair bound Surgical History: Surgical History (Last Reviewed 09/09/25 @ 15:01 by Feng Gracia MD) H/O right inguinal hernia repair Social History: Social History (Last Reviewed 09/09/25 @ 15:01 by Feng Gracia MD) Living Situation History: Household Members: Spouse Housing: House Do you presently have visiting nurse or other home services: No Tobacco History: Patient Tobacco Use Status: Never used Tobacco Advance Directives: Advance Directives Date on File: 08/19/25 Occupation Assessmet: service: No Home Medications and Allergies Current Medications: Current Medications Acetaminophen (Acetaminophen 325 Mg Tablet) 650 mg PO Q6H PRN PRN Reason: Pain, Mild 1-3,fever,headache Last Admin: 09/02/25 19:44 Dose: 650 mg Al Hydroxide/Mg Hydroxide (Magnesium Hydrox/Alum Hydrox 30 Ml Oral.Susp) 30 ml PO Q4H PRN PRN Reason: Heartburn Albuterol Sulfate (Albuterol Sulfate 90 Mcg 8 Gm Inhaler) 2 puff INHALE Q6H PRN PRN Reason: Shortness Of Breath Or Wheezing Amlodipine Besylate (Amlodipine Besylate 5 Mg Tablet) 5 mg PO DAILY JONATHAN; Protocol Last Admin: 09/10/25 09:26 Dose: 5 mg Calcium Carbonate (Calcium Carbonate 750 Mg Tab.Chew) 750 mg PO Q4H PRN PRN Reason: Heartburn Dronedarone (Dronedarone Hcl 400 Mg Tablet) 400 mg PO BID [facility] Last Admin: 09/10/25 09:27 Dose: 400 mg Fluticasone Propionate (Fluticasone Propionate Nasal 16 Gm [place]) 1 spray NOSTRIL-B DAILY PRN PRN Reason: Allergy Symptoms Furosemide (Furosemide 20 Mg Tablet) 20 mg PO DAILY JONATHAN; Protocol Last Admin: 09/10/25 09:27 Dose: 20 mg Hydromorphone HCl (Dilaudid) 10 mg in 50 mls @ 0 mls/hr IV .Q0M JONATHAN; Protocol Last Admin: 09/10/25 11:34 Dose: 0.3 mg/hr, 1.5 mls/hr Diltiazem HCl 125 mg/ Sodium (Chloride) 125 mls @ 0 mls/hr IVCONT .Q0M JONATHAN; Protocol Nutrition (Parenteral) (Parenteral Nutrition) 1,680 mls @ 70 mls/hr IV .Q24H JONATHAN; Protocol Stop: 09/10/25 20:59 Last Admin: 09/09/25 23:03 Dose: 70 mls/hr Nutrition (Parenteral) (Parenteral Nutrition) 1,680 mls @ 70 mls/hr IV .Q24H JONATHAN; Protocol Stop: 09/11/25 20:59 Loratadine (Loratadine 10 Mg Tablet) 10 mg PO DAILY JONATHAN On Hold: 09/06/25 09:44 Last Admin: 09/06/25 08:40 Dose: 10 mg Lorazepam (Lorazepam 0.5 Mg Tablet) 0.5 mg PO Q4H PRN PRN Reason: Anxiety Last Admin: 09/08/25 21:37 Dose: 0.5 mg Losartan Potassium (Losartan Potassium 50 Mg Tablet) 100 mg PO DAILY JONATHAN; Protocol Last Admin: 09/10/25 09:26 Dose: 100 mg Magnesium Hydroxide (Milk Of Magnesia 30 Ml Oral.Susp) 30 ml PO DAILY PRN PRN Reason: Constipation Melatonin (Melatonin 3 Mg Tablet) 6 mg PO BEDTIME PRN PRN Reason: Insomnia Metoprolol Tartrate (Metoprolol Tartrate 25 Mg Tablet) 25 mg PO TID JONATHAN; Protocol Last Admin: 09/10/25 09:27 Dose: 25 mg Naloxone HCl (Naloxone Hcl 0.4 Mg/Ml Vial) 0.2 mg IVPUSH Q2M PRN PRN Reason: Excessive sedation or RR < 8 Nystatin (Nystatin Powder 15 Gm Bottle) 1 appl TOPICAL BID [facility]; Protocol Omeprazole (Omeprazole 20 Mg Capsule.Dr) 20 mg PO SUTUTHSA@0630 [facility] Last Admin: 09/10/25 06:02 Dose: 20 mg Ondansetron HCl (Ondansetron Hcl 4 Mg/2 Ml Vial) 4 mg IVPUSH Q8H PRN PRN Reason: Nausea and Vomiting Last Admin: 09/06/25 14:19 Dose: 4 mg Pharmacy Consult (Consult Rx Parenteral Nutrition Ordering) 1 each MISCELLANE DAILY PRN PRN Reason: Consult order Sodium Chloride (0.9 % Sodium Chloride Flush 3 Ml Syringe) 3 ml IVFLUSH QSHIFT [facility] Last Admin: 09/10/25 08:07 Dose: 3 ml Trazodone HCl (Trazodone Hcl 50 Mg Tablet) 50 mg PO DAILY PRN PRN Reason: Insomnia Last Admin: 09/06/25 21:49 Dose: 50 mg Vitamin D (Cholecalciferol (Vitamin D3) 25 Mcg Tablet) 100 mcg PO DAILY [facility] On Hold: 09/06/25 09:43 Last Admin: 09/06/25 08:40 Dose: 100 mcg Warfarin Sodium (Warfarin Sodium 10 Mg Tablet) 10 mg PO DAILY@1800 [facility] Home Medications ?Medication ?Instructions ?Recorded ?Confirmed ?Type Tumeric 500 mg PO DAILY 08/10/25 09/01/25 History albuterol sulfate 90 mcg/actuation 2 inh inhalation Q6H PRN Shortness 08/10/25 09/01/25 History breath activated powder inhaler Of Breath Or Wheezing cetirizine 10 mg tablet 10 mg PO DAILY 08/10/25 09/01/25 History cholecalciferol (vitamin D3) 25 100 mcg PO DAILY 08/10/25 09/01/25 History mcg (1,000 unit) chewable tablet (Vitamin D3) clobetasol 0.05 % topical cream 1 g topical DAILY 08/10/25 09/01/25 History fluticasone propionate 50 1 spray intranasal DAILY PRN 08/10/25 09/01/25 History mcg/actuation nasal Allergy Symptoms spray,suspension furosemide 40 mg tablet 40 mg PO DAILY 08/10/25 09/01/25 History losartan 100 mg tablet 100 mg PO DAILY 08/10/25 09/01/25 History omeprazole 20 mg capsule,delayed 20 mg PO SUTUTHSA@0630 08/10/25 09/01/25 History release trazodone 50 mg tablet 50 mg PO DAILY PRN Insomnia 08/10/25 09/01/25 History warfarin 5 mg tablet 5 mg PO SUTUTHSA 08/10/25 09/01/25 History warfarin 5 mg tablet 10 mg PO MOWEFR 08/10/25 09/01/25 History Allergies Allergy/AdvReac Type Severity Reaction Status Date / Time heparin Allergy Severe heparin Verified 08/28/25 10:15 induced thrombocytopenia bacitracin Allergy Unknown Verified 08/28/25 10:15 celecoxib (From Celebrex) Allergy Unknown Verified 08/28/25 10:15 cephalexin (From Keflex) Allergy Unknown Verified 08/28/25 10:15 sulfacetamide (From Allergy Unknown Verified 08/28/25 10:15 Sulfamide) sulfamethoxazole (From Allergy Unknown Verified 08/28/25 10:15 Bactrim) trimethoprim (From Bactrim) Allergy Unknown Verified 08/28/25 10:15 Exam Vital signs: Vital Signs Temp 98.4 F 09/10/25 06:57 Pulse 82 09/10/25 06:57 Resp 20 09/10/25 06:57 BP 133/92 H 09/10/25 06:57 Pulse Ox 97 09/10/25 06:57 O2 Del Method Room Air 09/10/25 06:57 O2 Flow Rate 2 09/04/25 13:45 Intake & Output 09/09/25 09/10/25 09/10/25 18:59 06:59 18:59 Intake Total 22.275 / 8023.508 4751 / 1222.275 45.6 / 45.6 Output Total 460 / 910 450 / 910 290 / 290 Balance -437.725 / 312.275 750 / 312.275 -244.4 / -244.4 Urine Output (Average ml/kg/hr) 0.33 0.37 0.21 Intake: Intake, Oral Amount 0 / 0 Intake, IV Amount 22.275 / 9916.004 5586 / 1222.275 45.6 / 45.6 HYDROmorphone HCl/NS 10 mg In 22.275 / 22.275 45.6 / 45.6 50 ml @ Per Protocol IV .Q0M [facility] Rx#:[id number] Parenteral Nutrition 1,200 ml @ 1200 / 1200 50 mls/hr IV .Q24H [facility] Rx#: [id number] Output: Output, Urine Amount 400 / 850 450 / 850 250 / 250 Output, Tube Amount 60 / 60 40 / 40 ALAN Drain 60 / 60 40 / 40 Other: Meal Refused No NPO Yes Number of Unmeasured Voids 200 Number of Bowel Movements 2 Urine Urinal Urine Color Kalyani Last Bowel Movement 09/10/25 09/10/25 Stool Bathroom Weight 101.1 kg BMI result Body Mass Index 33.9 - Constitutional Present: mild distress - Routine HEENT Exam Head: Present: normal inspection, normocephalic - Routine Neck Exam Present: full ROM - Routine Respiratory Exam Present: CTAB - Routine Cardiovascular Exam Cardiovascular: Present: RRR, S1, S2 - Routine Abdominal Exam Present: soft, nontender - Routine Extremities Exam Present: nontender - Routine Back/Spine/Pelvis Exam Back/Spine: Present: full ROM - Routine Skin Exam Present: intact - Routine Neurological Exam Present: alert, oriented X3 - Routine Psychiatric Exam Present: normal affect Data - Labs CBC & Chem 7: 09/09/25 06:16 09/10/25 06:19 - Imaging Radiologist's impression: ITS Impressions PICC Line Insertion 09/01/25 13:03 IMPRESSION: Placement of a 5 fr 47 cm, dual lumen power PICC PLAN: -The catheter may be used immediately. This procedure was performed by Femi Jones NP, and directly supervised by Dilshad Sweet M.D. Electronically signed by: Dilshad Sweet MD 09/02/2025 07:34 AM EST RP Workstation: [id number] Chest X-Ray 09/06/25 11:50 IMPRESSION: NG tube ending likely in the stomach. Small to moderate volume left-sided pleural effusion with the compression atelectasis versus airspace disease. Right-sided PICC line ends at right atrium. Probable ileus versus bowel obstruction.. Electronically signed by: Robert Portillo MD 09/07/2025 08:37 AM EST RP Venous Duplex 09/07/25 16:15 IMPRESSION: No evidence of deep venous thrombosis involving the right upper extremity. Electronically signed by: Navi William MD 09/07/2025 05:14 PM EST RP Abdomen/Pelvis CT 09/08/25 12:03 IMPRESSION: There is a percutaneous catheter in the left abdomen. Multiloculated areas of hyperdensity that are mostly in the left abdomen, but extending across midline to the retrocecal region and right paracolic gutter, demonstrate interval decrease in volume. There are a few minute bubbles of extraluminal gas located just posterior to the percutaneous catheter in the left abdomen, presumably related to the catheter rather than gas-forming organisms. The gas is in an area where a focal hematoma has been mostly drained. Fluid and gas distend the small and large bowel. There is no transition zone. Additionally, fluid-fluid levels are in-plane suggesting paralytic ileus. Stable trace gas in the bladder is suspected to be related to intermittent catheterization. Correlate clinically to rule out infection. There is mild renal cortical atrophy raising question of chronic kidney disease. Fleischner guidelines were followed. Electronically signed by: Navi William MD 09/08/2025 12:46 PM EST RP Assessment and Plan Patient Active problem list reviewed?: Yes (1) Thrombocytopenia Status: Chronic Assessment and plan: This is a 64-year-old gentleman with history of antiphospholipid antibody syndrome, left lower extremity DVT in the remote past who was recently admitted to [facility] on 08/10/25-08/18/25 for perforated diverticulitis managed nonoperatively with IV abx. He subsequently developed a SBO as he had a loop of small bowel that appeared to be tethered to the area of diverticulitis. He required an NGT for decompression and bowel rest and PPN and this eventually resolved. His coumadin was held during this time for possible surgical intervention and he was bridged with heparin drip. Hit assay was negative. He however had a significant drop in his platelets during this time which was secondary to acute diverticulitis/infection. After briefly holding heparin and warfarin, he was started back on warfarin and sent home. Patient was readmitted in August and had sigmoid resection, small-bowel resection for diverticular disease on 09/04/2025. He was bridged with argatroban perioperatively for his antiphospholipid syndrome. Because of postoperative bleeding, he received blood and platelet transfusions. He has been off anticoagulation for a few days. His platelet counts are above 50 K. He can be resumed on warfarin. Right upper extremity swelling is coming down. Doppler performed 09/07/2025 was negative for DVT. Monitor daily CBC and coags. - Time Spent With Patient Time Spent with Patient (in minutes): 15 Additional Coding: - Additional E/M codes Complex E/M visit Add On: CPT G2211
[2025-09-10 12:11] LABS: INTERNATIONAL NORM RATIO 1.1 (0.9-1.1); Prothrombin Time 13.4 SEC (11.2-13.5)
--- NOTE | 2025-09-10 13:56 | P.PNCA_ITS ---
Subjective Subjective Date of Service: 09/10/25 Principal diagnosis: Paroxysmal atrial fibrillation Interval history: Patient has remained in sinus rhythm. Currently tolerating Multaq therapy. Echocardiogram shows normal LV ejection fraction of 60 65% with mild LVH with mildly dilated left atrium with mild aortic regurgitation, findings most consistent with hypertensive heart disease. He has never had atrial fibrillation in the past. Has been started on warfarin therapy today. NPO has been discontinued in his NG tube has been discontinued. Review of Systems Review of Systems Yes all other systems are reviewed and are negative Physical Exam Vital Signs: Last Vital Signs Temp 98.4 F 09/10/25 06:57 Pulse 82 09/10/25 06:57 Resp 20 09/10/25 06:57 BP 133/92 H 09/10/25 06:57 Pulse Ox 97 09/10/25 06:57 O2 Del Method Room Air 09/10/25 06:57 O2 Flow Rate 2 09/04/25 13:45 BMI result Body Mass Index 33.9 Const General: cooperative, comfortable, alert, awake, ill appearing and tired appearing Nutritional Appearance: obese Orientation/consciousness: patient oriented x3 HEENT Head: Yes normocephalic and Yes atraumatic Neck Neck: Yes trachea midline, Yes supple and Yes no JVD Resp Effort & Inspection: normal respiratory effort Auscultation: clear to auscultation bilaterally and diminished lung sounds Cardio Jugular venous distension: no JVD Rate: regular rate Rhythm: regular rhythm Heart sounds: S1 normal heart sound present, S2 normal heart sound present, no click, no gallops and no murmurs GI Inspection: Yes distended Auscultation: Hypoactive bowel sounds present Skin General skin exam: no rashes or lesions noted Neuro General: patient oriented x3 and no focal motor deficits Extrem General: Yes no clubbing, cyanosis or edema Objective Labs and Meds 09/09/25 06:16 09/10/25 06:19 Lab results: Laboratory Results - last 24 hr 09/10/25 09/10/25 06:19 11:49 Hold Purple Top SEE NOTE PT 13.4 INR 1.1 Sodium 138 Potassium 4.4 Chloride 102 Carbon Dioxide 27 Anion Gap 13 BUN 30 H Creatinine 1.19 Estim Creat Clear Calc 74.1 Estimated GFR > 60 Random Glucose 109 Calcium 8.6 Phosphorus 3.8 Magnesium 1.9 Albumin 2.9 L Progress Note: A&P Assessment and plan (1) Paroxysmal atrial fibrillation: Status: Acute Assessment and Plan: Paroxysmal atrial fibrillation most likely induced by acute medical/surgical illness. Continue Multaq for 4 weeks. 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 He does have underlying structural heart disease that makes him prone to get atrial fibrillation in the future. Will need monitoring as outpatient. If patient is willing to pursue follow up will pursue follow up here. Consider workup for sleep apnea. He has been restarted on warfarin therapy because of his underlying inherent clotting disorder. Target INR between 2 and 3 being pursued. Continue aggressive management of blood pressure. Please repeat EKGs today. Will sign of the case. Thank you for allowing me to partake in his care Time Spent With Patient Time: Total time managing care of this patient today ____ minutes. Progress Note: Quality Stroke Does the patient have a stroke diagnosis?: No Procedures Date of Service Date of Service: 09/10/25
[2025-09-10] MEDS: Albuterol Sulfate 90 MCG 8 GM INHALER 2 PUFF INHALE (20:44)
[2025-09-10] MEDS: Parenteral Nutrition 1,680 ML 70 ML IV (21:36)
[2025-09-11 03:21] VITALS: BP 115/72; PULSE 75; RESP 18; TEMP 37.7; O2SAT 96
[2025-09-11 07:39] LABS: Hematocrit 28.2 % (42.0-52.0); Hemoglobin 9.2 g/dl (14.0-18.0); Mean Corpuscular HGB Conc 32.6 g/dl (31.0-36.0); Mean Corpuscular Hemoglobin 29.2 pg (27.0-33.0); Mean Corpuscular Volume 89.5 fL (80.0-98.0); NRBC Abs Auto 0.000 X10*3/uL (0.0-0.012); NRBC Pct Auto 0.0 /100WBC (0.0-0.2); Red Blood Count 3.15 X10*6/uL (4.60-5.80); White Blood Count 9.7 X10*3/uL (4.8-10.8)
[2025-09-11 07:41] LABS: Platelet Count 45 X10*3/uL (160-400)
[2025-09-11 07:43] LABS: INTERNATIONAL NORM RATIO 1.1 (0.9-1.1); Prothrombin Time 13.3 SEC (11.2-13.5)
[2025-09-11 07:49] LABS: Albumin Level 2.8 g/dL (3.5-5.0); Anion Gap 12 (12-20); Blood Urea Nitrogen 31 mg/dL (9-16); Calcium 8.5 mg/dL (8.4-10.2); Carbon Dioxide 25 mmol/L (22-29); Chloride 103 mmol/L (96-108); Creatinine Clr Calc Pharmacy 74.8; Estimated Glomerular Filt Rate > 60; Magnesium 1.8 mg/dL (1.6-2.6); Potassium 4.0 mmol/L (3.3-5.1); Sodium 136 mmol/L (135-145)
[2025-09-11 08:00] VITALS: BP 120/82; PULSE 77; RESP 20; TEMP 36.7; O2SAT 95
--- NOTE | 2025-09-11 08:36 | P.PNGS_ITS ---
Subjective Subjective Date of Service: 09/11/25 <Trish Bolden PA-C - Last Filed: 09/11/25 09:44> 09/11/25 <Luis Gutierres MD - Last Filed: 09/11/25 10:40> Interval history: Had a difficult night and did not sleep much. Was OOB to commode with 4 liquid bowel movements. Has some crampiness this morning. Would like to try full liquids. <Trish Bolden PA-C - Last Filed: 09/11/25 09:44> Physical Exam 2 Vital Signs: Vital Signs: Last Vital Signs Temp 98.1 F 09/11/25 08:00 Pulse 77 09/11/25 08:00 Resp 20 09/11/25 08:00 BP 120/82 09/11/25 08:00 Pulse Ox 95 09/11/25 08:00 O2 Del Method Room Air 09/11/25 08:00 O2 Flow Rate 2 09/04/25 13:45 BMI result Body Mass Index 33.9 <Trish Bolden PA-C - Last Filed: 09/11/25 09:44> Const: General: comfortable, no acute distress, alert and tired appearing <Trish Bolden PA-C - Last Filed: 09/11/25 09:44> Orientation/consciousness: patient oriented x3 <JEFFREY Mcdonald Last Filed: 09/11/25 09:44> Resp: Effort & Inspection: normal respiratory effort, able to speak in complete sentences and not tachypneic <Trish Bolden PA-C - Last Filed: 09/11/25 09:44> GI: Other: distended but soft mild incisional tenderness and at drain site ALAN with old bloody drainage <Trish Bolden PA-C - Last Filed: 09/11/25 09:44> Palpation (GI): no guarding and not rigid <JEFFREY Mcdonald Last Filed: 09/11/25 09:44> Skin: General skin exam: no rashes or lesions noted <JEFFREY Mcdonald Last Filed: 09/11/25 09:44> Neuro: General: patient oriented x3 and moves all extremities <Trish Bolden PA-C - Last Filed: 09/11/25 09:44> Objective Data Active Medications Acetaminophen (Acetaminophen 325 Mg Tablet) 650 mg PO Q6H PRN PRN Reason: Pain, Mild 1-3,fever,headache Last Admin: 09/02/25 19:44 Dose: 650 mg Documented By: BRONWYN Al Hydroxide/Mg Hydroxide (Magnesium Hydrox/Alum Hydrox 30 Ml Oral.Susp) 30 ml PO Q4H PRN PRN Reason: Heartburn Albuterol Sulfate (Albuterol Sulfate 90 Mcg 8 Gm Inhaler) 2 puff INHALE Q6H PRN PRN Reason: Shortness Of Breath Or Wheezing Last Admin: 09/10/25 20:44 Dose: 2 puff Documented By: ROSY Amlodipine Besylate (Amlodipine Besylate 5 Mg Tablet) 5 mg PO DAILY [facility]; Protocol Last Admin: 09/10/25 09:26 Dose: 5 mg Documented By: GABO Calcium Carbonate (Calcium Carbonate 750 Mg Tab.Chew) 750 mg PO Q4H PRN PRN Reason: Heartburn Dronedarone (Dronedarone Hcl 400 Mg Tablet) 400 mg PO BID [facility] Last Admin: 09/10/25 21:28 Dose: 400 mg Documented By: BARRON Fluticasone Propionate (Fluticasone Propionate Nasal 16 Gm [place]) 1 spray NOSTRIL-B DAILY PRN PRN Reason: Allergy Symptoms Furosemide (Furosemide 20 Mg Tablet) 20 mg PO DAILY [facility]; Protocol Last Admin: 09/10/25 09:27 Dose: 20 mg Documented By: GABO Hydromorphone HCl (Hydromorphone Hcl 1 Mg/Ml Syringe) 0.5 mg IVPUSH Q3H PRN; Protocol PRN Reason: Pain, Severe (Pain Scale 7-10) Diltiazem HCl 125 mg/ Sodium (Chloride) 125 mls @ 0 mls/hr IVCONT .Q0M [facility]; Protocol Nutrition (Parenteral) (Parenteral Nutrition) 1,680 mls @ 70 mls/hr IV .Q24H [facility]; Protocol Stop: 09/11/25 20:59 Last Admin: 09/10/25 21:36 Dose: 70 mls/hr Documented By: BARRON Loratadine (Loratadine 10 Mg Tablet) 10 mg PO DAILY [facility] On Hold: 09/06/25 09:44 Last Admin: 09/06/25 08:40 Dose: 10 mg Documented By: KETURAH Lorazepam (Lorazepam 0.5 Mg Tablet) 0.5 mg PO Q4H PRN PRN Reason: Anxiety Last Admin: 09/08/25 21:37 Dose: 0.5 mg Documented By: GIAN Losartan Potassium (Losartan Potassium 50 Mg Tablet) 100 mg PO DAILY [facility]; Protocol Last Admin: 09/10/25 09:26 Dose: 100 mg Documented By: GABO Magnesium Hydroxide (Milk Of Magnesia 30 Ml Oral.Susp) 30 ml PO DAILY PRN PRN Reason: Constipation Melatonin (Melatonin 3 Mg Tablet) 6 mg PO BEDTIME PRN PRN Reason: Insomnia Metoprolol Tartrate (Metoprolol Tartrate 25 Mg Tablet) 25 mg PO TID [facility]; Protocol Last Admin: 09/10/25 21:28 Dose: 25 mg Documented By: BARRON Naloxone HCl (Naloxone Hcl 0.4 Mg/Ml Vial) 0.2 mg IVPUSH Q2M PRN PRN Reason: Excessive sedation or RR < 8 Nystatin (Nystatin Powder 15 Gm Bottle) 1 appl TOPICAL BID [facility]; Protocol Last Admin: 09/10/25 22:59 Dose: Not Given Documented By: BARRON Non-Admin Reason: Patient Refused Omeprazole (Omeprazole 20 Mg Capsule.) 20 mg PO SUTUTHSA@0630 [facility] Last Admin: 09/10/25 06:02 Dose: 20 mg Documented By: BARRON Ondansetron HCl (Ondansetron Hcl 4 Mg/2 Ml Vial) 4 mg IVPUSH Q8H PRN PRN Reason: Nausea and Vomiting Last Admin: 09/11/25 04:52 Dose: 4 mg Documented By: BARRON Oxycodone HCl (Oxycodone Hcl Immed Release 5 Mg Tablet) 5 mg PO Q4H PRN PRN Reason: Pain, Moderate(Pain Scale 4-6) Pharmacy Consult (Consult Rx Parenteral Nutrition Ordering) 1 each MISCELLANE DAILY PRN PRN Reason: Consult order Sodium Chloride (0.9 % Sodium Chloride Flush 3 Ml Syringe) [facility] Last Admin: 09/10/25 22:59 Dose: Not Given Documented By: BARRON Non-Admin Reason: IV Running Trazodone HCl (Trazodone Hcl 50 Mg Tablet) 50 mg PO DAILY PRN PRN Reason: Insomnia Last Admin: 09/10/25 22:57 Dose: 50 mg Documented By: BARRON Vitamin D (Cholecalciferol (Vitamin D3) 25 Mcg Tablet) 100 mcg PO DAILY [facility] On Hold: 09/06/25 09:43 Last Admin: 09/06/25 08:40 Dose: 100 mcg Documented By: KETURAH Warfarin Sodium (Warfarin Sodium 10 Mg Tablet) 10 mg PO MoWeFr@1800 [facility] Warfarin Sodium (Warfarin Sodium 5 Mg Tablet) 5 mg PO SuTuThSa@1800 [facility] Last Admin: 09/10/25 18:39 Dose: 5 mg Documented By: GABO <Trish Bolden PA-C - Last Filed: 09/11/25 09:44> Labs CBC & Chem 7: 09/11/25 06:55 09/11/25 06:55 <Trish Bolden PA-C - Last Filed: 09/11/25 09:44> Labs: Laboratory Results - last 24 hr 09/10/25 09/11/25 11:49 06:55 MCV 89.5 MCH 29.2 MCHC 32.6 RDW 15.6 Plt Count 45 L MPV 11.6 Absolute Nucleated RBC 0.000 Nucleated RBC % (auto) 0.0 Hold Purple Top SEE NOTE PT 13.4 13.3 INR 1.1 1.1 Anion Gap 12 Estim Creat Clear Calc 74.8 Estimated GFR > 60 Random Glucose 113 Calcium 8.5 Phosphorus 4.1 Magnesium 1.8 Albumin 2.8 L <Trish Bolden PA-C - Last Filed: 09/11/25 09:44> Procedures Date of Service Date of Service: 09/11/25 <Trish Bolden PA-C - Last Filed: 09/11/25 09:44> 09/11/25 <Luis Gutierres MD - Last Filed: 09/11/25 10:40> Progress Note: A&P Assessment and plan (1) Anti-phospholipid antibody syndrome: Status: Acute <Trish Bolden PA-C - Last Filed: 09/11/25 09:44> Assessment and Plan: Says he feels ?okay? Has BMs and flatus Minimal ALAN output although there is some leakage around this Tolerating liquids next No obvious bleeding after Coumadin was restarted next Platelet down again to 45 - monitor for now Pain management Incentive spirometry Seen and examined independently <Luis Gutierres MD - Last Filed: 09/11/25 10:40> (2) Diverticulitis of large intestine with complication: Status: Acute <Trish Bolden PA-C - Last Filed: 09/11/25 09:44> Assessment and Plan: POD 7 following hand assisted laparoscopic descending colon resection and small-bowel resection for diverticular abscess. No evidence of any ongoing bleeding at this time. ALAN output decreasing and old bloody appearing drainage. He is tolerating clears and continues to pass flatus and stools. Will advance to full liquids as tolerated. Coumadin restarted yesterday at his normal home dosing. INR unchanged. H/H stable but platelets have drifted down to 45. Will hold off on transfusion for now given no signs of bleeding and cont to trend and monitor. Cont OOB/ambulation and increasing activity as tolerated. 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 Patient comfortable with plan. Hospitalists following. <Trish Bolden PA-C - Last Filed: 09/11/25 09:44> Time Spent With Patient Time: Total time managing care of this patient today ____ minutes. <Trish Bolden PA-C - Last Filed: 09/11/25 09:44> Quality Stroke Does the patient have a stroke diagnosis?: No <Trish Bolden PA-C - Last Filed: 09/11/25 09:44> VTE Prior VTE?: No <Trish Bolden PA-C - Last Filed: 09/11/25 09:44> VTE Risk Level:: Surgical - high <Trish Bolden PA-C - Last Filed: 09/11/25 09:44> VTE Device Contraindication: N/A - Device Ordered <JEFFREY Mcdonald Last Filed: 09/11/25 09:44> VTE Drug Contraindication: N/A - Med Ordered <Trish Bolden PA-C - Last Filed: 09/11/25 09:44>
[2025-09-11] MEDS: oxyCODONE HCl Immed Release 5 MG TABLET PO ×3 (09:12→21:10)
[2025-09-11] MEDS: 0.9 % Sodium Chloride Flush 3 ML SYRINGE IVFLUSH ×3 (09:13→21:11)
--- NOTE | 2025-09-11 10:25 | MHC.CLN ---
F/U DIET ADVANCED TO F/L PT RECEIVING 8OZ ENSURE TID TO PROVIDE 1050KCALS, 60G PROTEIN DISCUSSED CASE WITH PA-PLAN FOR TPN ONE MORE DAY REVIEWED LABS DISCUSSED WITH PHARMACY CONTINUE TPN AT 70ML/HR WITH 42G LIPIDS PROVIDES 1613 TOTAL KCALS (23KCALS/KG), 252G DEXTROSE, 84G PROTEIN (1.2G/KG) REPLETE LYTES NEEDED FOLLOWING WITH TEAM RD CAN BE REACHED VIA [employer] DURING OFF HOURS IF NEEDED
--- NOTE | 2025-09-11 11:51 | HO.PM.IMPN ---
Subjective Subjective Date of Service: 09/11/25 Interval History: Continue to make progress, tolerating liquid idet, bp and HR good Physical Exam Vital Signs: Vital Signs: Last Vital Signs Temp 98.1 F 09/11/25 08:00 Pulse 77 09/11/25 08:00 Resp 20 09/11/25 08:00 BP 120/82 09/11/25 08:00 Pulse Ox 95 09/11/25 08:00 O2 Del Method Room Air 09/11/25 08:00 O2 Flow Rate 2 09/04/25 13:45 BMI result Body Mass Index 33.9 Const: Other: General: AO X 3, no acute distress Resp: CTA bilateral CVS: S1,S2,RRR GI: dressing in place, see surgery for detail Skin: No rash Neuro: motor grossly intact Psych: appropriate affect Objective Data Active Medications Acetaminophen (Acetaminophen 325 Mg Tablet) 650 mg PO Q6H PRN PRN Reason: Pain, Mild 1-3,fever,headache Last Admin: 09/02/25 19:44 Dose: 650 mg Documented By: BRONWYN Al Hydroxide/Mg Hydroxide (Magnesium Hydrox/Alum Hydrox 30 Ml Oral.Susp) 30 ml PO Q4H PRN PRN Reason: Heartburn Albuterol Sulfate (Albuterol Sulfate 90 Mcg 8 Gm Inhaler) 2 puff INHALE Q6H PRN PRN Reason: Shortness Of Breath Or Wheezing Last Admin: 09/10/25 20:44 Dose: 2 puff Documented By: ROSY Amlodipine Besylate (Amlodipine Besylate 5 Mg Tablet) 5 mg PO DAILY [facility]; Protocol Last Admin: 09/11/25 09:11 Dose: 5 mg Documented By: GABO Calcium Carbonate (Calcium Carbonate 750 Mg Tab.Chew) 750 mg PO Q4H PRN PRN Reason: Heartburn Dronedarone (Dronedarone Hcl 400 Mg Tablet) 400 mg PO BID [facility] Last Admin: 09/11/25 09:11 Dose: 400 mg Documented By: GABO Fluticasone Propionate (Fluticasone Propionate Nasal 16 Gm [place]) 1 spray NOSTRIL-B DAILY PRN PRN Reason: Allergy Symptoms Furosemide (Furosemide 20 Mg Tablet) 20 mg PO DAILY [facility]; Protocol Last Admin: 09/11/25 09:12 Dose: 20 mg Documented By: GABO Hydromorphone HCl (Hydromorphone Hcl 1 Mg/Ml Syringe) 0.5 mg IVPUSH Q3H PRN; Protocol PRN Reason: Pain, Severe (Pain Scale 7-10) Diltiazem HCl 125 mg/ Sodium (Chloride) 125 mls @ 0 mls/hr IVCONT .Q0M [facility]; Protocol Nutrition (Parenteral) (Parenteral Nutrition) 1,680 mls @ 70 mls/hr IV .Q24H [facility]; Protocol Stop: 09/11/25 20:59 Last Admin: 09/10/25 21:36 Dose: 70 mls/hr Documented By: BARRON Nutrition (Parenteral) (Parenteral Nutrition) 1,680 mls @ 70 mls/hr IV .Q24H [facility]; Protocol Stop: 09/12/25 20:59 Loratadine (Loratadine 10 Mg Tablet) 10 mg PO DAILY [facility] On Hold: 09/06/25 09:44 Last Admin: 09/06/25 08:40 Dose: 10 mg Documented By: KETURAH Lorazepam (Lorazepam 0.5 Mg Tablet) 0.5 mg PO Q4H PRN PRN Reason: Anxiety Last Admin: 09/08/25 21:37 Dose: 0.5 mg Documented By: GIAN Losartan Potassium (Losartan Potassium 50 Mg Tablet) 100 mg PO DAILY [facility]; Protocol Last Admin: 09/11/25 09:10 Dose: 100 mg Documented By: GABO Magnesium Hydroxide (Milk Of Magnesia 30 Ml Oral.Susp) 30 ml PO DAILY PRN PRN Reason: Constipation Melatonin (Melatonin 3 Mg Tablet) 6 mg PO BEDTIME PRN PRN Reason: Insomnia Metoprolol Tartrate (Metoprolol Tartrate 25 Mg Tablet) 25 mg PO TID [facility]; Protocol Last Admin: 09/11/25 09:11 Dose: 25 mg Documented By: GABO Naloxone HCl (Naloxone Hcl 0.4 Mg/Ml Vial) 0.2 mg IVPUSH Q2M PRN PRN Reason: Excessive sedation or RR < 8 Nystatin (Nystatin Powder 15 Gm Bottle) 1 appl TOPICAL BID [facility]; Protocol Last Admin: 09/11/25 09:14 Dose: 1 appl Documented By: GABO Omeprazole (Omeprazole 20 Mg Capsule.) 20 mg PO SUTUTHSA@0630 [facility] Last Admin: 09/10/25 06:02 Dose: 20 mg Documented By: BARRON Ondansetron HCl (Ondansetron Hcl 4 Mg/2 Ml Vial) 4 mg IVPUSH Q8H PRN PRN Reason: Nausea and Vomiting Last Admin: 09/11/25 04:52 Dose: 4 mg Documented By: BARRON Oxycodone HCl (Oxycodone Hcl Immed Release 5 Mg Tablet) 5 mg PO Q4H PRN PRN Reason: Pain, Moderate(Pain Scale 4-6) Last Admin: 09/11/25 09:12 Dose: 5 mg Documented By: GABO Pharmacy Consult (Consult Rx Parenteral Nutrition Ordering) 1 each MISCELLANE DAILY PRN PRN Reason: Consult order Sodium Chloride (0.9 % Sodium Chloride Flush 3 Ml Syringe) 3 ml IVFLUSH QSHIFT [facility] Last Admin: 09/11/25 09:13 Dose: 3 ml Documented By: GABO Trazodone HCl (Trazodone Hcl 50 Mg Tablet) 50 mg PO DAILY PRN PRN Reason: Insomnia Last Admin: 09/10/25 22:57 Dose: 50 mg Documented By: BARRON Vitamin D (Cholecalciferol (Vitamin D3) 25 Mcg Tablet) 100 mcg PO DAILY [facility] On Hold: 09/06/25 09:43 Last Admin: 09/06/25 08:40 Dose: 100 mcg Documented By: KETURAH Warfarin Sodium (Warfarin Sodium 10 Mg Tablet) 10 mg PO MoWeFr@1800 [facility] Warfarin Sodium (Warfarin Sodium 5 Mg Tablet) 5 mg PO SuTuThSa@1800 [facility] Last Admin: 09/10/25 18:39 Dose: 5 mg Documented By: GABO Labs 09/11/25 06:55 09/11/25 06:55 Labs: Laboratory Results - last 24 hr 09/10/25 09/11/25 11:49 06:55 MCV 89.5 MCH 29.2 MCHC 32.6 RDW 15.6 Plt Count 45 L MPV 11.6 Absolute Nucleated RBC 0.000 Nucleated RBC % (auto) 0.0 Hold Purple Top SEE NOTE PT 13.4 13.3 INR 1.1 1.1 Anion Gap 12 Estim Creat Clear Calc 74.8 Estimated GFR > 60 Random Glucose 113 Calcium 8.5 Phosphorus 4.1 Magnesium 1.8 Albumin 2.8 L Assessment and Plan (1) Afib: Status: Acute Plan Patient is a 64-year-old male with past medical history significant for antiphospholipid syndrome on Coumadin with recent HIT, HTN and asthma, admitted for Sigmoid diverticulitis with abscess, obstruction s/p hand assisted laparoscopic left colectomy, mobilization of splenic flexure, small-bowel resection, drainage of abscess on 09/04/25, post op complicated by ALAN and abscess cavity with some sanguinous output, thrombocytopenia, elevated blood pressure and now New AFIB with RVR S/p hand assisted laparoscopic left colectomy and small-bowel resection with abscess collection abdominal wall with some bleeding complication post op futher management per surgery, on TPN at this time, surgery to advance diet New onset AFIB with RVR, transient and remains in sinus since the first episode continue lopressor, Multaq per card recommendation echo EF 60 to 65 continue coumadin and monitor INR c HTN, Elevated blood pressure, usually controlled on Losartan alone, probably pain, anxiety component Norvasc and metoprolol added with improvement and further adjustment Antiphospholipid syndrome, usually on coumadin, restarted on coumadin, plat 45 and no bridging at this time asthma, unspecified - fluticasone, albuterol, cetirizine Pyoderma gangrenosum - patient's to do wound care dvt prophylaxis: device Will continue to follow Quality Stroke Does the patient have a stroke diagnosis?: No VTE Prior VTE?: No VTE Risk Level:: Surgical - high VTE Device Contraindication: N/A - Device Ordered VTE Drug Contraindication: N/A - Med Ordered
--- NOTE | 2025-09-11 14:13 | MHC.CM.PN ---
Per rounds, pt. 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
--- NOTE | 2025-09-11 15:04 | PC.NURSE ---
Pt having excessive gas. C/o cramping pain. Pt has been moving about the room with assistance of spouse. Taking PO oxycodone and simethicone with IV dilaudid for break through pain. Pain seems to have increased since discontinuing the dilaudid pump.
[2025-09-11 16:15] VITALS: BP 128/84; PULSE 74; RESP 20; TEMP 36.7; O2SAT 97
[2025-09-11 19:02] VITALS: BP 119/73; PULSE 62; RESP 20; TEMP 36; O2SAT 96
[2025-09-11] MEDS: Parenteral Nutrition 1,680 ML 70 ML IV (21:15)
[2025-09-12] VITALS (7 sets, daily range): BP systolic 112–128; BP diastolic 69–87; PULSE 72–80; RESP 17–18; TEMP 36.4–37.1; O2SAT 96–98
[2025-09-12] MEDS: oxyCODONE HCl Immed Release 5 MG TABLET PO ×2 (06:41→13:01)
[2025-09-12 07:33] LABS: MANUAL DIFF FLAG NO
[2025-09-12 07:36] LABS: Hematocrit 28.1 % (42.0-52.0); Hemoglobin 9.1 g/dl (14.0-18.0); Imm Gran Abs Auto 0.16 X10*3/uL (0.00-0.03); Imm Gran Pct Auto 1.8 % (0.0-0.4); Lymphocytes Absolute Auto 1.1 X10*3/uL (1.2-4.9); Mean Corpuscular HGB Conc 32.4 g/dl (31.0-36.0); Mean Corpuscular Hemoglobin 28.9 pg (27.0-33.0); Mean Corpuscular Volume 89.2 fL (80.0-98.0); NRBC Abs Auto 0.000 X10*3/uL (0.0-0.012); NRBC Pct Auto 0.0 /100WBC (0.0-0.2); Red Blood Count 3.15 X10*6/uL (4.60-5.80); White Blood Count 8.8 X10*3/uL (4.8-10.8)
[2025-09-12 07:41] LABS: Platelet Count 55 X10*3/uL (160-400)
[2025-09-12 07:42] LABS: INTERNATIONAL NORM RATIO 1.1 (0.9-1.1); Prothrombin Time 13.0 SEC (11.2-13.5)
[2025-09-12] MEDS: 0.9 % Sodium Chloride Flush 3 ML SYRINGE IVFLUSH ×3 (07:56→20:48)
[2025-09-12 08:01] LABS: Albumin Level 2.7 g/dL (3.5-5.0); Anion Gap 11 (12-20); Blood Urea Nitrogen 30 mg/dL (9-16); Calcium 8.6 mg/dL (8.4-10.2); Carbon Dioxide 24 mmol/L (22-29); Chloride 103 mmol/L (96-108); Creatinine Clr Calc Pharmacy 74.1; Estimated Glomerular Filt Rate > 60; Magnesium 1.8 mg/dL (1.6-2.6); Potassium 4.6 mmol/L (3.3-5.1); Sodium 133 mmol/L (135-145)
--- NOTE | 2025-09-12 09:09 | P.PNGS_ITS ---
Subjective Subjective Date of Service: 09/12/25 Interval history: Patient overall is doing well tolerating some diet still has TPN going in this bag it was not renewed for another 24 hours but he would like it to be DC as he feels like it is holding him back. Physical Exam 2 Vital Signs: Vital Signs: Last Vital Signs Temp 97.8 F 09/12/25 08:00 Pulse 72 09/12/25 08:00 Resp 18 09/12/25 08:00 BP 128/87 09/12/25 08:00 Pulse Ox 96 09/12/25 08:00 O2 Del Method Room Air 09/12/25 08:00 O2 Flow Rate 2 09/04/25 13:45 BMI result Body Mass Index 33.9 GI: Other: Abdomen is soft nondistended nontender incisions good ALAN drain putting out dark serous fluid. Objective Data Active Medications Acetaminophen (Acetaminophen 325 Mg Tablet) 650 mg PO Q6H PRN PRN Reason: Pain, Mild 1-3,fever,headache Last Admin: 09/02/25 19:44 Dose: 650 mg Documented By: BRONWYN Al Hydroxide/Mg Hydroxide (Magnesium Hydrox/Alum Hydrox 30 Ml Oral.Susp) 30 ml PO Q4H PRN PRN Reason: Heartburn Albuterol Sulfate (Albuterol Sulfate 90 Mcg 8 Gm Inhaler) 2 puff INHALE Q6H PRN PRN Reason: Shortness Of Breath Or Wheezing Last Admin: 09/10/25 20:44 Dose: 2 puff Documented By: ROSY Amlodipine Besylate (Amlodipine Besylate 5 Mg Tablet) 5 mg PO DAILY [facility]; Protocol Last Admin: 09/12/25 07:55 Dose: 5 mg Documented By: SHREE Calcium Carbonate (Calcium Carbonate 750 Mg Tab.Chew) 750 mg PO Q4H PRN PRN Reason: Heartburn Dronedarone (Dronedarone Hcl 400 Mg Tablet) 400 mg PO BID [facility] Last Admin: 09/12/25 07:55 Dose: 400 mg Documented By: SHREE Fluticasone Propionate (Fluticasone Propionate Nasal 16 Gm [place]) 1 spray NOSTRIL-B DAILY PRN PRN Reason: Allergy Symptoms Furosemide (Furosemide 20 Mg Tablet) 20 mg PO DAILY [facility]; Protocol Last Admin: 09/12/25 07:55 Dose: 20 mg Documented By: SHREE Hydromorphone HCl (Hydromorphone Hcl 1 Mg/Ml Syringe) 0.5 mg IVPUSH Q3H PRN; Protocol PRN Reason: Pain, Severe (Pain Scale 7-10) Last Admin: 09/12/25 03:33 Dose: 0.5 mg Documented By: LAUREN Diltiazem HCl 125 mg/ Sodium (Chloride) 125 mls @ 0 mls/hr IVCONT .Q0M [facility]; Protocol Nutrition (Parenteral) (Parenteral Nutrition) 1,680 mls @ 70 mls/hr IV .Q24H [facility]; Protocol Stop: 09/12/25 20:59 Last Admin: 09/11/25 21:15 Dose: 70 mls/hr Documented By: LAUREN Loratadine (Loratadine 10 Mg Tablet) 10 mg PO DAILY [facility] On Hold: 09/06/25 09:44 Last Admin: 09/06/25 08:40 Dose: 10 mg Documented By: KETURAH Lorazepam (Lorazepam 0.5 Mg Tablet) 0.5 mg PO Q4H PRN PRN Reason: Anxiety Last Admin: 09/08/25 21:37 Dose: 0.5 mg Documented By: GIAN Losartan Potassium (Losartan Potassium 50 Mg Tablet) 100 mg PO DAILY [facility]; Protocol Last Admin: 09/12/25 07:55 Dose: 100 mg Documented By: SHREE Magnesium Hydroxide (Milk Of Magnesia 30 Ml Oral.Susp) 30 ml PO DAILY PRN PRN Reason: Constipation Melatonin (Melatonin 3 Mg Tablet) 6 mg PO BEDTIME PRN PRN Reason: Insomnia Metoprolol Tartrate (Metoprolol Tartrate 25 Mg Tablet) 25 mg PO TID [facility]; Protocol Last Admin: 09/12/25 07:55 Dose: 25 mg Documented By: SHREE Naloxone HCl (Naloxone Hcl 0.4 Mg/Ml Vial) 0.2 mg IVPUSH Q2M PRN PRN Reason: Excessive sedation or RR < 8 Nystatin (Nystatin Powder 15 Gm Bottle) 1 appl TOPICAL BID [facility]; Protocol Last Admin: 09/12/25 07:56 Dose: 1 appl Documented By: SHREE Omeprazole (Omeprazole 20 Mg Capsule.) 20 mg PO SUTUTHSA@0630 [facility] Last Admin: 09/12/25 06:41 Dose: 20 mg Documented By: LAUREN Ondansetron HCl (Ondansetron Hcl 4 Mg/2 Ml Vial) 4 mg IVPUSH Q8H PRN PRN Reason: Nausea and Vomiting Last Admin: 09/11/25 04:52 Dose: 4 mg Documented By: BARRON Oxycodone HCl (Oxycodone Hcl Immed Release 5 Mg Tablet) 5 mg PO Q4H PRN PRN Reason: Pain, Moderate(Pain Scale 4-6) Last Admin: 09/12/25 06:41 Dose: 5 mg Documented By: LAUREN Pharmacy Consult (Consult Rx Parenteral Nutrition Ordering) 1 each MISCELLANE DAILY PRN PRN Reason: Consult order Simethicone (Simethicone 80 Mg Tab.Chew) 80 mg PO QIDWMHS PRN PRN Reason: Gas Last Admin: 09/11/25 18:51 Dose: 80 mg Documented By: GABO Sodium Chloride (0.9 % Sodium Chloride Flush 3 Ml Syringe) 3 ml IVFLUSH [facility] Last Admin: 09/12/25 07:56 Dose: 3 ml Documented By: SHREE Trazodone HCl (Trazodone Hcl 50 Mg Tablet) 50 mg PO DAILY PRN PRN Reason: Insomnia Last Admin: 09/10/25 22:57 Dose: 50 mg Documented By: BARRON Vitamin D (Cholecalciferol (Vitamin D3) 25 Mcg Tablet) 100 mcg PO DAILY [facility] On Hold: 09/06/25 09:43 Last Admin: 09/06/25 08:40 Dose: 100 mcg Documented By: KETURAH Warfarin Sodium (Warfarin Sodium 10 Mg Tablet) 10 mg PO MoWeFr@1800 [facility] Last Admin: 09/11/25 18:47 Dose: 10 mg Documented By: GABO Warfarin Sodium (Warfarin Sodium 5 Mg Tablet) 5 mg PO SuTuThSa@1800 [facility] Last Admin: 09/10/25 18:39 Dose: 5 mg Documented By: GABO Labs 09/12/25 07:08 09/12/25 07:08 Labs: Laboratory Results - last 24 hr 09/12/25 07:08 MCV 89.2 MCH 28.9 MCHC 32.4 RDW 15.6 Plt Count 55 L MPV 11.5 Immature Gran % (Auto) 1.8 H Neut % (Auto) 74.7 H Lymph % (Auto) 12.9 L [place] % (Auto) 7.9 Eos % (Auto) 2.4 Baso % (Auto) 0.3 Lymph # (Auto) 1.1 L [place] # (Auto) 0.7 Eos # (Auto) 0.2 Baso # (Auto) 0.0 Abs Immat Gran (auto) 0.16 H Absolute Neuts (auto) 6.5 Absolute Nucleated RBC 0.000 Nucleated RBC % (auto) 0.0 PT 13.0 INR 1.1 Anion Gap 11 L Estim Creat Clear Calc 74.1 Estimated GFR > 60 Random Glucose 120 H Calcium 8.6 Phosphorus 3.4 Magnesium 1.8 Albumin 2.7 L Procedures Date of Service Date of Service: 09/12/25 Progress Note: A&P Assessment and plan (1) Diverticulitis of large intestine with complication: Status: Acute Assessment and Plan: Patient is a 64-year-old male who is status post colectomy for diverticulitis and abscess overall doing well. The patient is doing quite well in his able to tolerate good p.o. intake on his own so we will stop TPN. Continue with ambulation and ALAN drain until discharge most likely on Sunday. He understands and agrees with the above plan Time Spent With Patient Time: Total time managing care of this patient today ____ minutes. Quality Stroke Does the patient have a stroke diagnosis?: No VTE Prior VTE?: No VTE Risk Level:: Surgical - high VTE Device Contraindication: N/A - Device Ordered VTE Drug Contraindication: N/A - Med Ordered
--- NOTE | 2025-09-12 11:58 | P.PNIM_ITS ---
Subjective Subjective Date of Service: 09/12/25 Interval History: Continue to make progress, tolerating liquid idet, bp and HR within normal would like diet advanced, TPN is to be discontinued INR still low Physical Exam 2 Vital Signs: Vital Signs: Last Vital Signs Temp 97.8 F 09/12/25 08:00 Pulse 72 09/12/25 08:00 Resp 18 09/12/25 08:00 BP 128/87 09/12/25 08:00 Pulse Ox 96 09/12/25 08:00 O2 Del Method Room Air 09/12/25 08:00 O2 Flow Rate 2 09/04/25 13:45 BMI result Body Mass Index 33.9 Const: Other: General: AO X 3, no acute distress Resp: CTA bilateral CVS: S1,S2,RRR GI: dressing in place, see surgery for detail Skin: No rash Neuro: motor grossly intact Psych: appropriate affect Objective Data Active Medications Acetaminophen (Acetaminophen 325 Mg Tablet) 650 mg PO Q6H PRN PRN Reason: Pain, Mild 1-3,fever,headache Last Admin: 09/02/25 19:44 Dose: 650 mg Documented By: BRONWYN Al Hydroxide/Mg Hydroxide (Magnesium Hydrox/Alum Hydrox 30 Ml Oral.Susp) 30 ml PO Q4H PRN PRN Reason: Heartburn Albuterol Sulfate (Albuterol Sulfate 90 Mcg 8 Gm Inhaler) 2 puff INHALE Q6H PRN PRN Reason: Shortness Of Breath Or Wheezing Last Admin: 09/10/25 20:44 Dose: 2 puff Documented By: ROSY Amlodipine Besylate (Amlodipine Besylate 5 Mg Tablet) 5 mg PO DAILY [facility]; Protocol Last Admin: 09/12/25 07:55 Dose: 5 mg Documented By: SHREE Calcium Carbonate (Calcium Carbonate 750 Mg Tab.Chew) 750 mg PO Q4H PRN PRN Reason: Heartburn Dronedarone (Dronedarone Hcl 400 Mg Tablet) 400 mg PO BID [facility] Last Admin: 09/12/25 07:55 Dose: 400 mg Documented By: SHREE Fluticasone Propionate (Fluticasone Propionate Nasal 16 Gm [place]) 1 spray NOSTRIL-B DAILY PRN PRN Reason: Allergy Symptoms Furosemide (Furosemide 20 Mg Tablet) 20 mg PO DAILY [facility]; Protocol Last Admin: 09/12/25 07:55 Dose: 20 mg Documented By: SHREE Hydromorphone HCl (Hydromorphone Hcl 1 Mg/Ml Syringe) 0.5 mg IVPUSH Q3H PRN; Protocol PRN Reason: Pain, Severe (Pain Scale 7-10) Last Admin: 09/12/25 10:16 Dose: 0.5 mg Documented By: SHREE Diltiazem HCl 125 mg/ Sodium (Chloride) 125 mls @ 0 mls/hr IVCONT .Q0M [facility]ATH[facility]; Protocol Nutrition (Parenteral) (Parenteral Nutrition) 1,680 mls @ 70 mls/hr IV .Q24H [facility]ONATHAN; Protocol Stop: 09/12/25 20:59 Last Admin: 09/11/25 21:15 Dose: 70 mls/hr Documented By: LAUREN Nutrition (Parenteral) (Parenteral Nutrition) 1,680 mls @ 70 mls/hr IV .Q24H JONATHAN; Protocol Stop: 09/13/25 20:59 Loratadine (Loratadine 10 Mg Tablet) 10 mg PO DAILY [facility] On Hold: 09/06/25 09:44 Last Admin: 09/06/25 08:40 Dose: 10 mg Documented By: KETRUAH Lorazepam (Lorazepam 0.5 Mg Tablet) 0.5 mg PO Q4H PRN PRN Reason: Anxiety Last Admin: 09/08/25 21:37 Dose: 0.5 mg Documented By: GIAN Losartan Potassium (Losartan Potassium 50 Mg Tablet) 100 mg PO DAILY [facility]; Protocol Last Admin: 09/12/25 07:55 Dose: 100 mg Documented By: SHREE Magnesium Hydroxide (Milk Of Magnesia 30 Ml Oral.Susp) 30 ml PO DAILY PRN PRN Reason: Constipation Melatonin (Melatonin 3 Mg Tablet) 6 mg PO BEDTIME PRN PRN Reason: Insomnia Metoprolol Tartrate (Metoprolol Tartrate 25 Mg Tablet) 25 mg PO TID [facility]; Protocol Last Admin: 09/12/25 07:55 Dose: 25 mg Documented By: SHREE Naloxone HCl (Naloxone Hcl 0.4 Mg/Ml Vial) 0.2 mg IVPUSH Q2M PRN PRN Reason: Excessive sedation or RR < 8 Nystatin (Nystatin Powder 15 Gm Bottle) 1 appl TOPICAL BID [facility]ATH[facility]; Protocol Last Admin: 09/12/25 07:56 Dose: 1 appl Documented By: SHREE Omeprazole (Omeprazole 20 Mg Capsule.) 20 mg PO SUTUTHSA@0630 [facility] Last Admin: 09/12/25 06:41 Dose: 20 mg Documented By: LAUREN Ondansetron HCl (Ondansetron Hcl 4 Mg/2 Ml Vial) 4 mg IVPUSH Q8H PRN PRN Reason: Nausea and Vomiting Last Admin: 09/11/25 04:52 Dose: 4 mg Documented By: BARRON Oxycodone HCl (Oxycodone Hcl Immed Release 5 Mg Tablet) 5 mg PO Q4H PRN PRN Reason: Pain, Moderate(Pain Scale 4-6) Last Admin: 09/12/25 06:41 Dose: 5 mg Documented By: LAUREN Pharmacy Consult (Consult Rx Parenteral Nutrition Ordering) 1 each MISCELLANE DAILY PRN PRN Reason: Consult order Simethicone (Simethicone 80 Mg Tab.Chew) 80 mg PO QIDWMHS PRN PRN Reason: Gas Last Admin: 09/11/25 18:51 Dose: 80 mg Documented By: GABO Sodium Chloride (0.9 % Sodium Chloride Flush 3 Ml Syringe) 3 ml IVFSH [facility] Last Admin: 09/12/25 07:56 Dose: 3 ml Documented By: SHREE Trazodone HCl (Trazodone Hcl 50 Mg Tablet) 50 mg PO DAILY PRN PRN Reason: Insomnia Last Admin: 09/10/25 22:57 Dose: 50 mg Documented By: BARRON Vitamin D (Cholecalciferol (Vitamin D3) 25 Mcg Tablet) 100 mcg PO DAILY [facility] On Hold: 09/06/25 09:43 Last Admin: 09/06/25 08:40 Dose: 100 mcg Documented By: KETURAH Warfarin Sodium (Warfarin Sodium 10 Mg Tablet) 10 mg PO MoWeFr@1800 [facility] Last Admin: 09/11/25 18:47 Dose: 10 mg Documented By: GABO Warfarin Sodium (Warfarin Sodium 5 Mg Tablet) 5 mg PO SuTuThSa@1800 [facility] Last Admin: 09/10/25 18:39 Dose: 5 mg Documented By: GABO Labs 09/12/25 07:08 09/12/25 07:08 Labs: Laboratory Results - last 24 hr 09/12/25 07:08 MCV 89.2 MCH 28.9 MCHC 32.4 RDW 15.6 Plt Count 55 L MPV 11.5 Immature Gran % (Auto) 1.8 H Neut % (Auto) 74.7 H Lymph % (Auto) 12.9 L [place] % (Auto) 7.9 Eos % (Auto) 2.4 Baso % (Auto) 0.3 Lymph # (Auto) 1.1 L [place] # (Auto) 0.7 Eos # (Auto) 0.2 Baso # (Auto) 0.0 Abs Immat Gran (auto) 0.16 H Absolute Neuts (auto) 6.5 Absolute Nucleated RBC 0.000 Nucleated RBC % (auto) 0.0 PT 13.0 INR 1.1 Anion Gap 11 L Estim Creat Clear Calc 74.1 Estimated GFR > 60 Random Glucose 120 H Calcium 8.6 Phosphorus 3.4 Magnesium 1.8 Albumin 2.7 L Assessment and Plan (1) Afib: Status: Acute Plan Patient is a 64-year-old male with past medical history significant for antiphospholipid syndrome on Coumadin with recent HIT, HTN and asthma, admitted for Sigmoid diverticulitis with abscess, obstruction s/p hand assisted laparoscopic left colectomy, mobilization of splenic flexure, small-bowel resection, drainage of abscess on 09/04/25, post op complicated by ALAN and abscess cavity with some sanguinous output, thrombocytopenia, elevated blood pressure and now New AFIB with RVR S/p hand assisted laparoscopic left colectomy and small-bowel resection with abscess collection abdominal wall with some bleeding complication post op futher management per surgery, on TPN at this time, surgery to advance diet and likely stop TPN New onset AFIB with RVR, transient and remains in sinus since the first episode continue lopressor, Multaq per card recommendation echo EF 60 to 65 continue coumadin and monitor INR is 1, give 10 today HTN, Elevated blood pressure, usually controlled on Losartan alone, probably pain, anxiety component Norvasc and metoprolol added with improvement and further adjustment Antiphospholipid syndrome continue coumadin adusted for INR 2 to 3, plat 45, give today Asthma, unspecified fluticasone, albuterol, cetirizine Pyoderma gangrenosum patient's to do wound care dvt prophylaxis: device Will continue to follow Out of bed and ambulate Quality Stroke Does the patient have a stroke diagnosis?: No VTE Prior VTE?: No VTE Risk Level:: Surgical - high VTE Device Contraindication: N/A - Device Ordered VTE Drug Contraindication: N/A - Med Ordered
[2025-09-13 03:38] VITALS: BP 109/73; PULSE 72; RESP 18; TEMP 37.1; O2SAT 95
[2025-09-13] MEDS: oxyCODONE HCl Immed Release 5 MG TABLET PO ×3 (04:57→12:25)
[2025-09-13 08:00] VITALS: BP 114/77; PULSE 74; RESP 20; TEMP 36.5; O2SAT 96
[2025-09-13 08:07] LABS: INTERNATIONAL NORM RATIO 1.2 (0.9-1.1); Prothrombin Time 14.4 SEC (11.2-13.5)
[2025-09-13] MEDS: 0.9 % Sodium Chloride Flush 3 ML SYRINGE IVFLUSH (08:07)
[2025-09-13 08:08] VITALS: BP 114/77
[2025-09-13 08:09] VITALS: BP 114/77
[2025-09-13 08:15] LABS: Albumin Level 2.8 g/dL (3.5-5.0); Anion Gap 12 (12-20); Blood Urea Nitrogen 39 mg/dL (9-16); Calcium 8.5 mg/dL (8.4-10.2); Carbon Dioxide 24 mmol/L (22-29); Chloride 102 mmol/L (96-108); Creatinine Clr Calc Pharmacy 60.0; Estimated Glomerular Filt Rate 49; Magnesium 1.7 mg/dL (1.6-2.6); Potassium 4.7 mmol/L (3.3-5.1); Sodium 133 mmol/L (135-145)
--- NOTE | 2025-09-13 13:08 | P.PNIM_ITS ---
Subjective Subjective Date of Service: 09/13/25 Interval History: Off TPN and tolerating diet, no new issues. INR 1.2 today l Physical Exam 2 Vital Signs: Vital Signs: Last Vital Signs Temp 97.7 F 09/13/25 08:00 Pulse 74 09/13/25 08:00 Resp 20 09/13/25 08:00 BP 114/77 09/13/25 08:09 Pulse Ox 96 09/13/25 08:00 O2 Del Method Room Air 09/13/25 08:00 O2 Flow Rate 2 09/04/25 13:45 BMI result Body Mass Index 33.9 Const: Other: Alert, no distresss, abd dressing in place was being replaced by RN Objective Data Active Medications Acetaminophen (Acetaminophen 325 Mg Tablet) 650 mg PO Q6H PRN PRN Reason: Pain, Mild 1-3,fever,headache Last Admin: 09/02/25 19:44 Dose: 650 mg Documented By: BRONWYN Al Hydroxide/Mg Hydroxide (Magnesium Hydrox/Alum Hydrox 30 Ml Oral.Susp) 30 ml PO Q4H PRN PRN Reason: Heartburn Albuterol Sulfate (Albuterol Sulfate 90 Mcg 8 Gm Inhaler) 2 puff INHALE Q6H PRN PRN Reason: Shortness Of Breath Or Wheezing Last Admin: 09/10/25 20:44 Dose: 2 puff Documented By: ROSY Amlodipine Besylate (Amlodipine Besylate 5 Mg Tablet) 5 mg PO DAILY [facility]; Protocol Last Admin: 09/13/25 08:08 Dose: 5 mg Documented By: SHREE Calcium Carbonate (Calcium Carbonate 750 Mg Tab.Chew) 750 mg PO Q4H PRN PRN Reason: Heartburn Dronedarone (Dronedarone Hcl 400 Mg Tablet) 400 mg PO BID [facility] Last Admin: 09/13/25 09:30 Dose: 400 mg Documented By: SHREE Fluticasone Propionate (Fluticasone Propionate Nasal 16 Gm [place]) 1 spray NOSTRIL-B DAILY PRN PRN Reason: Allergy Symptoms Furosemide (Furosemide 20 Mg Tablet) 20 mg PO DAILY [facility]; Protocol Last Admin: 09/13/25 08:08 Dose: 20 mg Documented By: SHREE Hydromorphone HCl (Hydromorphone Hcl 1 Mg/Ml Syringe) 0.5 mg IVPUSH Q3H PRN; Protocol PRN Reason: Pain, Severe (Pain Scale 7-10) Last Admin: 09/13/25 02:10 Dose: 0.5 mg Documented By: LAUREN Loratadine (Loratadine 10 Mg Tablet) 10 mg PO DAILY [facility] On Hold: 09/06/25 09:44 Last Admin: 09/06/25 08:40 Dose: 10 mg Documented By: KETURAH Lorazepam (Lorazepam 0.5 Mg Tablet) 0.5 mg PO Q4H PRN PRN Reason: Anxiety Last Admin: 09/08/25 21:37 Dose: 0.5 mg Documented By: GIAN Losartan Potassium (Losartan Potassium 50 Mg Tablet) 100 mg PO DAILY [facility]; Protocol Last Admin: 09/13/25 08:08 Dose: 100 mg Documented By: SHREE Magnesium Hydroxide (Milk Of Magnesia 30 Ml Oral.Susp) 30 ml PO DAILY PRN PRN Reason: Constipation Melatonin (Melatonin 3 Mg Tablet) 6 mg PO BEDTIME PRN PRN Reason: Insomnia Metoprolol Tartrate (Metoprolol Tartrate 25 Mg Tablet) 25 mg PO TID [facility]; Protocol Last Admin: 09/13/25 08:09 Dose: 25 mg Documented By: SHREE Naloxone HCl (Naloxone Hcl 0.4 Mg/Ml Vial) 0.2 mg IVPUSH Q2M PRN PRN Reason: Excessive sedation or RR < 8 Nystatin (Nystatin Powder 15 Gm Bottle) 1 appl TOPICAL BID [facility]; Protocol Last Admin: 09/13/25 08:23 Dose: 1 appl Documented By: SHREE Omeprazole (Omeprazole 20 Mg Capsule.) 20 mg PO SUTUTHSA@0630 [facility] Last Admin: 09/13/25 06:40 Dose: 20 mg Documented By: LAUREN Ondansetron HCl (Ondansetron Hcl 4 Mg/2 Ml Vial) 4 mg IVPUSH Q8H PRN PRN Reason: Nausea and Vomiting Last Admin: 09/12/25 20:54 Dose: 4 mg Documented By: LAUREN Oxycodone HCl (Oxycodone Hcl Immed Release 5 Mg Tablet) 5 mg PO Q4H PRN PRN Reason: Pain, Moderate(Pain Scale 4-6) Last Admin: 09/13/25 12:25 Dose: 5 mg Documented By: SHREE Pharmacy Consult (Consult Rx Parenteral Nutrition Ordering) 1 each MISCELLANE DAILY PRN PRN Reason: Consult order Simethicone (Simethicone 80 Mg Tab.Chew) 80 mg PO QIDWMHS PRN PRN Reason: Gas Last Admin: 09/11/25 18:51 Dose: 80 mg Documented By: GABO Sodium Chloride (0.9 % Sodium Chloride Flush 3 Ml Syringe) 3 ml IVFLUSH QSHIFT [facility] Last Admin: 09/13/25 08:07 Dose: 3 ml Documented By: SHREE Trazodone HCl (Trazodone Hcl 50 Mg Tablet) 50 mg PO DAILY PRN PRN Reason: Insomnia Last Admin: 09/10/25 22:57 Dose: 50 mg Documented By: BARRON Vitamin D (Cholecalciferol (Vitamin D3) 25 Mcg Tablet) 100 mcg PO DAILY [facility] On Hold: 09/06/25 09:43 Last Admin: 09/06/25 08:40 Dose: 100 mcg Documented By: KETURAH Warfarin Sodium (Warfarin Sodium 10 Mg Tablet) 10 mg PO MoWeFr@1800 [facility] Last Admin: 09/11/25 18:47 Dose: 10 mg Documented By: GABO Warfarin Sodium (Warfarin Sodium 5 Mg Tablet) 5 mg PO SuTuThSa@1800 [facility] Last Admin: 09/12/25 18:39 Dose: 5 mg Documented By: SHREE Labs 09/12/25 07:08 09/13/25 07:07 Labs: Laboratory Results - last 24 hr 09/13/25 07:07 PT 14.4 H INR 1.2 H Anion Gap 12 Estim Creat Clear Calc 60.0 Estimated GFR 49 Random Glucose 92 Calcium 8.5 Phosphorus 3.9 Magnesium 1.7 Albumin 2.8 L Assessment and Plan (1) Afib: Status: Acute Plan Patient is a 64-year-old male with past medical history significant for antiphospholipid syndrome on Coumadin with recent HIT, HTN and asthma, admitted for Sigmoid diverticulitis with abscess, obstruction s/p hand assisted laparoscopic left colectomy, mobilization of splenic flexure, small-bowel resection, drainage of abscess on 09/04/25, post op complicated by ALAN and abscess cavity with some sanguinous output, thrombocytopenia, elevated blood pressure and now New AFIB with RVR S/p hand assisted laparoscopic left colectomy and small-bowel resection with abscess collection abdominal wall with some bleeding complication post op futher management per surgery. TPN stopped on oral feed New onset AFIB with RVR, transient and remains in sinus since the first episode continue lopressor, Multaq per card recommendation echo EF 60 to 65 continue coumadin and monitor INR is 1,2, give 10 today HTN, Elevated blood pressure, usually controlled on Losartan alone, probably pain, anxiety component Norvasc 5 and metoprolol 25 bid added with improvement and further adjustment, scripts sent to pharmacy Antiphospholipid syndrome continue coumadin adusted for INR 2 to 3, plat 45, give today Asthma, unspecified fluticasone, albuterol, cetirizine Pyoderma gangrenosum patient's to do wound care dvt prophylaxis: device Will continue to follow Out of bed and ambulate stable medically and will sing off at this time. Quality Stroke Does the patient have a stroke diagnosis?: No VTE Prior VTE?: No VTE Risk Level:: Surgical - high VTE Device Contraindication: N/A - Device Ordered VTE Drug Contraindication: N/A - Med Ordered
--- NOTE | 2025-09-13 14:45 | PM.DS ---
DS: Providers Provider Date of Service: 09/13/25 Date of admission: 09/01/25 14:45 Date of discharge: 09/13/25 Primary care physician: Jeremías Knox MD Consults: 09/01/25 14:29 Consult to Hematology / Oncology Routine Consulting Provider: [facility]/Hematology Reason for consultation: antiphospholipid syndrome on coumadin, hx of HIT, bridging rec Has provider been notified: No Consult to Hospitalist Routine Comment: Consulting Provider: [facility] Hospitalists Reason For Exam: antiphospholipid syndrome on coumadin, hx of HIT 09/01/25 16:30 Consult to Wound Care Routine Consulting Provider: [facility] Wound Care Management Reason for consultation: chronic left leg wound 09/02/25 16:52 Consult to Ostomy Care Routine 09/08/25 09:28 Consult to Hospitalist Routine Comment: Consulting Provider: [facility] Hospitalists Reason For Exam: hypertensions, NPO post colon surgery 09/08/25 15:35 Consult to Cardiology Routine Consulting Provider: [facility] Cardiovascular Specialists Reason for consultation: New AFiB with RVR Has provider been notified: Yes Attending physician on discharge: Dorota Jacinto DS: Diagnosis Discharge Diagnosis (1) Afib: Status: Acute DS: Summary Hospital Course Hospital Course: The patient is a 64-year-old male with antiphospholipid syndrome who presented with perforated diverticulitis which required laparoscopic surgery with bowel resection and anastomosis. Patient's course was little prolonged secondary to ileus and starting back up on anticoagulation. He did however do well and by discharge was tolerating p.o. diet well having bowel movements ambulating and moving around fine platelets were up and doing well with p.o. pain meds Status at Discharge Overall status at discharge: patient is progressing back to baseline Time Attestation Total time managing care of this patient today: 25 mintues. Discharge Coordination Time (in mins): 25 Quality: Safe Use of Opioids Does Pt have an Active Cancer Diagnosis on the Problem List?: No Quality: Stroke Does the patient have a stroke diagnosis?: No Physical Exam Vital Signs: Vital Signs: Last Vital Signs Temp 97.7 F 09/13/25 08:00 Pulse 74 09/13/25 08:00 Resp 20 09/13/25 08:00 BP 114/77 09/13/25 08:09 Pulse Ox 96 09/13/25 08:00 O2 Del Method Room Air 09/13/25 08:00 O2 Flow Rate 2 09/04/25 13:45 BMI result Body Mass Index 33.9 Const: General: cooperative, healthy appearing, comfortable and no acute distress Resp: Effort & Inspection: normal respiratory effort Auscultation: clear to auscultation bilaterally GI: Other: abdomen is soft nondistended incisions look well healed ALAN drain with dark thin fluid output decreased and this was removed DS: Data Data Completed and Pending Completed studies during hospitalization [Text1]: Pending at discharge 09/04/25 13:08 Surgical [PTH] Routine Procedures Transfusion of Nonautologous Platelets into Peripheral Vein, Percutaneous Approach (08/10/25) Labs on day of discharge: Laboratory Results - last 24 hr 09/13/25 07:07 PT 14.4 H INR 1.2 H Sodium 133 L Potassium 4.7 Chloride 102 Carbon Dioxide 24 Anion Gap 12 BUN 39 H Creatinine 1.47 H Estim Creat Clear Calc 60.0 Estimated GFR 49 Random Glucose 92 Calcium 8.5 Phosphorus 3.9 Magnesium 1.7 [address]in [address] scan - abdomen: Radiologist's impression: ITS Impressions PICC Line Insertion 09/01/25 13:03 IMPRESSION: Placement of a 5 fr 47 cm, dual lumen power PICC PLAN: -The catheter may be used immediately. This procedure was performed by Femi Jones NP, and directly supervised by Dilshad Sweet M.D. Electronically signed by: Dilshad Sweet MD 09/02/2025 07:34 AM EST RP Workstation: [id number] Chest X-Ray 09/06/25 11:50 IMPRESSION: NG tube ending likely in the stomach. Small to moderate volume left-sided pleural effusion with the compression atelectasis versus airspace disease. Right-sided PICC line ends at right atrium. Probable ileus versus bowel obstruction.. Electronically signed by: Robert Portillo MD 09/07/2025 08:37 AM EST RP Venous Duplex 09/07/25 16:15 IMPRESSION: No evidence of deep venous thrombosis involving the right upper extremity. Electronically signed by: Navi William MD 09/07/2025 05:14 PM EST RP Abdomen/Pelvis CT 09/08/25 12:03 IMPRESSION: There is a percutaneous catheter in the left abdomen. Multiloculated areas of hyperdensity that are mostly in the left abdomen, but extending across midline to the retrocecal region and right paracolic gutter, demonstrate interval decrease in volume. There are a few minute bubbles of extraluminal gas located just posterior to the percutaneous catheter in the left abdomen, presumably related to the catheter rather than gas-forming organisms. The gas is in an area where a focal hematoma has been mostly drained. Fluid and gas distend the small and large bowel. There is no transition zone. Additionally, fluid-fluid levels are in-plane suggesting paralytic ileus. Stable trace gas in the bladder is suspected to be related to intermittent catheterization. Correlate clinically to rule out infection. There is mild renal cortical atrophy raising question of chronic kidney disease. Fleischner guidelines were followed. Electronically signed by: Navi William MD 09/08/2025 12:46 PM [facility] [place] Discharge Anticipated Discharge Date/Time: 09/13/25 14:04 Patient Disposition: Home, Self-Care Discharge Diagnosis: diverticulitis with abscess, s/p sigmoid resection Referrals: Jeremías Knox MD [Primary Care Provider, Medical] - 1 Week Gallito Razo MD [Physician, General Surgery] - 1 Week Discharge Medications: New amlodipine 5 mg Tablet 5 mg PO DAILY Qty: 90 0RF Protocol: Hold for SBP< HOLD for SBP < : 90 metoprolol tartrate 25 mg Tablet 25 mg PO BID Qty: 180 0RF Protocol: Hold for SBP/HR < HOLD for SBP < : 90 HOLD for HR < : 60 acetaminophen 325 mg Tablet 650 mg PO Q6H PRN (Reason: Pain, Mild 1-3,Fever,Headache) Qty: 20 0RF oxycodone 5 mg Tablet 5 mg PO Q4H PRN (Reason: Pain, Moderate(Pain Scale 4-6)) Qty: 20 0RF Rx Instructions: Partial Fill upon patient request. nystatin [Nyamyc] 100,000 unit/gram Powder 1 appl topical BID Qty: 30 0RF Protocol: Apply to: Apply to: skin irritation, buttock cholecalciferol (vitamin D3) 25 mcg (1,000 unit) Tablet 100 mcg PO DAILY Qty: 30 0RF Continued oxycodone 5 mg capsule 5 mg PO Q6H PRN (Reason: pain (scale score 7-10)) Qty: 14 0RF Rx Instructions: Partial Fill upon patient request. furosemide 40 mg tablet 40 mg PO DAILY trazodone 50 mg Tablet 50 mg PO DAILY PRN (Reason: Insomnia) cetirizine 10 mg Tablet 10 mg PO DAILY clobetasol 0.05 % cream 1 g topical DAILY warfarin 5 mg tablet 10 mg PO MOWE warfarin 5 mg tablet 5 mg PO SUTUTHSA omeprazole 20 mg Capsule,Delayed Release(Dr/Ec) 20 mg PO SUTUTHSA@0630 losartan 100 mg tablet 100 mg PO DAILY fluticasone propionate 50 mcg/actuation [place],Suspension 1 spray INTRANASAL DAILY PRN (Reason: Allergy Symptoms) Rx Instructions: administer into each nostril cholecalciferol (vitamin D3) [Vitamin D3] 25 mcg (1,000 unit) Tablet,Chewable 100 mcg PO DAILY albuterol sulfate 90 mcg/actuation Aerosol Powdr Breath Activated 2 inh INHALATION Q6H PRN (Reason: Shortness Of Breath Or Wheezing) Tumeric 500 mg 500 mg PO DAILY Discharge Orders: Discharge Order (Routine); Ordered 09/13/25 Ordered By: Dorota Jacinto Diet: Advance to usual diet Activity on Discharge: No heavy lifting Stand Alone Forms: Patient Portal Discharge page Print Language: Sen[place]alese Activity Restrictions/Additional Instructions: If the incision area is tender, you may apply an ice pack for short intervals (No more than 20 minutes on, followed by at least 20 minutes off). Do not apply heat. Do not use creams, lotions, or topical antibiotics. Ok to shower. You have keisha closing your incision and these will be removed approximately 10-14 days after surgery. ALAN drain care- empty drain BID and as needed. Record output. Bring record to follow up appointment. No heavy lifting (>10lbs) or strenuous activity! Take Tylenol Extra-strength 1-2 tabs every 6 hours as needed. Oxycodone every 4-6 hours as needed for pain. Colace 100 mg every day as needed for constipation. Follow up in office with Dr. Razo in 1 week. ([phone]) Call Your Doctor If: -Your temperature exceeds 101.5? F -You experience excessive pain or swelling -You have an unexpected reaction to medication -You have excessive bleeding -You experience continued vomiting/nausea -Your incision begins to separate -Your incision shows signs of infection such as increased redness, swelling, excessive pain, drainage (light blood or clear fluid is normal) or heat Care Plan Goals: Return to baseline health and resume normal activities following recovery period. Health Concerns: antiphospholipid syndrome on coumadin diverticulitis with abscess Plan of Treatment: s/p BOB sigmoid resection, small bowel resection Follow up in the office for wound check, staple removal Resume home medication Follow up with PCP, rope cutter upon DC Assessment: Doing well post op
--- NOTE | 2025-09-13 14:47 | MHC.CM.PN ---
PT CLEARED TO DC HOME TODAY WITH NO SERVICES VIA PRIVATE TRANSPORT
[2025-09-13 15:38] VITALS: BP 103/59; PULSE 80; RESP 18; TEMP 36.6; O2SAT 96
== END 2025-09-13 16:00 | disposition home or self-care (01) | DRG 230 ==
LOC: HO.S3 14:48 → HO.IMC 09-03 13:51
PROVIDERS: Hospitalist; Internal Medicine; Internal Medicine Medical Oncology; Physician Assistant Surgical; Admitting Provider Surgery; PCP Internal Medicine; Visit Provider Surgery
PROC: 0DTE0ZZ Resection of Large Intestine, Open Approach (ICD-10-PCS; principal; 2025-09-04 09:30)
DX: K57.20 Diverticulitis of large intestine with perforation and abscess without bleeding (principal); K66.1 Hemoperitoneum; K56.50 Intestinal adhesions [bands], unspecified as to partial versus complete obstruction; D69.6 Thrombocytopenia, unspecified; D68.61 Antiphospholipid syndrome; L88 Pyoderma gangrenosum; Y83.8 Other surgical procedures as the cause of abnormal reaction of the patient, or of later complication, without mention of misadventure at the time of the procedure; K91.840 Postprocedural hemorrhage of a digestive system organ or structure following a digestive system procedure; G89.18 Other acute postprocedural pain; J45.909 Unspecified asthma, uncomplicated; I10 Essential (primary) hypertension; I48.0 Paroxysmal atrial fibrillation; Z86.718 Personal history of other venous thrombosis and embolism; Z79.01 Long term (current) use of anticoagulants; Z79.899 Other long term (current) drug therapy
CPT/HCPCS: 36415; 36573; 71045; 74176; 80048; 80053; 82040; 82248; 82947; 83735; 84100; 84443; 84478; 85025; 85027; 85610; 85730; 86850; 86900; 86901; 86923; 87493; 88307; 93005; 93306; 93971; 94640; 94664; 97162; 97530; A4649; C1751; J0131; J0616; J0665; J0692; J0883; J1100; J1171; J1836; J2003; J2250; J2270; J2371; J2405; J2704; J3010; J7120; P9016; P9073

== ENCOUNTER 2025-09-01 14:45 | Outpatient (BNV) | payer OTHER, SELFPAY | END 2025-09-05 15:23 | PROVIDERS: Admitting Provider Surgery; PCP Internal Medicine; Visit Provider Radiology Diagnostic Radiology | DX: R14.0 Abdominal distension (gaseous) (principal) | CPT/HCPCS: 74176 ==

== ENCOUNTER → 2025-09-01 14:45 | Outpatient (BNV) | payer OTHER, SELFPAY | PROVIDERS: Admitting Provider Surgery; PCP Internal Medicine; Visit Provider Physician Assistant Surgical | DX: D69.6 Thrombocytopenia, unspecified (principal); D68.61 Antiphospholipid syndrome; K57.32 Diverticulitis of large intestine without perforation or abscess without bleeding | CPT/HCPCS: 44204; 44213; 99024; 99222; 99232; 99499 ==

== ENCOUNTER → 2025-09-01 14:45 | Outpatient (BNV) | payer OTHER, SELFPAY | PROVIDERS: Admitting Provider Surgery; PCP Internal Medicine; Visit Provider Physician Assistant | DX: K57.32 Diverticulitis of large intestine without perforation or abscess without bleeding (principal) | CPT/HCPCS: 99222; 99232 ==

== ENCOUNTER → 2025-09-01 14:45 | Outpatient (BNV) | payer OTHER, SELFPAY | PROVIDERS: Admitting Provider Surgery; PCP Internal Medicine; Visit Provider Internal Medicine Cardiovascular Disease | DX: I48.0 Paroxysmal atrial fibrillation (principal) | CPT/HCPCS: 99222 ==

== ENCOUNTER → 2025-09-01 14:45 | Outpatient (BNV) | payer OTHER, SELFPAY | PROVIDERS: Admitting Provider Surgery; PCP Internal Medicine; Visit Provider Internal Medicine Medical Oncology | DX: D69.6 Thrombocytopenia, unspecified (principal); K57.12 Diverticulitis of small intestine without perforation or abscess without bleeding | CPT/HCPCS: 99222 ==

== ENCOUNTER 2025-09-17 11:19 | Outpatient (REF) | payer OTHER, SELFPAY ==
[2025-09-17 12:30] LABS: MANUAL DIFF FLAG NO
[2025-09-17 13:17] LABS: Hematocrit 33.1 % (42.0-52.0); Hemoglobin 10.5 g/dl (14.0-18.0); Imm Gran Abs Auto 0.11 X10*3/uL (0.00-0.03); Imm Gran Pct Auto 1.1 % (0.0-0.4); Lymphocytes Absolute Auto 1.3 X10*3/uL (1.2-4.9); Mean Corpuscular HGB Conc 31.7 g/dl (31.0-36.0); Mean Corpuscular Hemoglobin 28.2 pg (27.0-33.0); Mean Corpuscular Volume 89.0 fL (80.0-98.0); NRBC Abs Auto 0.000 X10*3/uL (0.0-0.012); NRBC Pct Auto 0.0 /100WBC (0.0-0.2); Red Blood Count 3.72 X10*6/uL (4.60-5.80); White Blood Count 10.0 X10*3/uL (4.8-10.8)
[2025-09-17 13:23] LABS: Platelet Count 86 X10*3/uL (160-400)
[2025-09-17 13:56] LABS: Anion Gap 13 (12-20); Blood Urea Nitrogen 31 mg/dL (9-16); Calcium 8.8 mg/dL (8.4-10.2); Carbon Dioxide 25 mmol/L (22-29); Chloride 102 mmol/L (96-108); Estimated Glomerular Filt Rate 43; Potassium 5.1 mmol/L (3.3-5.1); Sodium 135 mmol/L (135-145)
== END 2025-09-17 11:20 | disposition home or self-care (01) ==
LOC: HO.LAB 11:19
PROVIDERS: Absent Provider Surgery; PCP Internal Medicine; Visit Provider Physician Assistant Surgical
DX: I48.0 Paroxysmal atrial fibrillation (principal); Z90.49 Acquired absence of other specified parts of digestive tract; D68.61 Antiphospholipid syndrome
CPT/HCPCS: 36415; 80048; 85025

== ENCOUNTER 2025-09-17 11:19 | Outpatient (AMB) | payer OTHER, SELFPAY ==
--- NOTE | 2025-09-17 11:29 | MHC.OFFVIS ---
Vital Signs 09/17/25 11:39 Height 5 ft 8 in Weight 216 lb 0.848 oz BMI 32.8 Respiration 16 Pulse 82 Intake Visit Reasons: S/P sigmoid resection Intake Note: Patient is seen in office for post op assessment post sigmoid resection. Pt c/o: loose stool since post surgery, appetitte is good, pain is worse during the night even with pain meds, needs a refill Lunchroom Operator Required: No Accompanied by: Spouse Allergies heparin Allergy (Severe, Verified 08/28/25 10:15) heparin induced thrombocytopenia bacitracin Allergy (Verified 08/28/25 10:15) Unknown celecoxib (From Celebrex) Allergy (Verified 08/28/25 10:15) Unknown cephalexin (From Keflex) Allergy (Verified 08/28/25 10:15) Unknown sulfacetamide (From Sulfamide) Allergy (Verified 08/28/25 10:15) Unknown sulfamethoxazole (From Bactrim) Allergy (Verified 08/28/25 10:15) Unknown trimethoprim (From Bactrim) Allergy (Verified 08/28/25 10:15) Unknown HPI HPI S/P sigmoid resection: Details: Alejandro Correa is 64 year old male who presents for wound check and staple removal. He underwent hand assisted laparoscopic left colectomy, mobilization of splenic flexure, small-bowel resection, drainage of abscess on 09/04/[address] Razo for diverticulitis involving descending colon with abscess, small-bowel obstruction secondary to abscess. He had a lengthy recovery course due to slow recovery of GI function requiring NGT decompression and TPN as well as thrombocytopenia requiring platelet tranfusion and new onset paroxysmal atrial fibrillation related to his underlying medical/surgical illness. He remained in sinus rhythm following initial episode. He was eventually discharged on 09/13/25 on norvasc and lopressor. He was recommended to have outpatient follow up as he has structural heart disease that makes him prone to get atrial fibrillation in the future. He reports doing ok since discharge. He reports the incisional pain/cramping is manageable during the day however he needs an oxycodone at night as well as trazodone to help with sleeping. He continues to pass significant amount of flatus and several loose stools throughout the day. He has been avoiding high fiber foods. He is eating ok without nausea or vomiting. He denies fevers, chills, chest pain, difficulty breathing. He feels weak and has begun to have home PT. He was started on his home coumadin dosing in the hospital and was seen at the coumadin clinic yesterday at [facility] and his INR is 2.6. He reports he has not been taking the norvasc as his SBP has been on the softer side in low 100s. He has an appointment with his PCP early next week. [facility] Medical History Antiphospholipid syndrome (Unknown) Pyoderma gangrenosum Surgical History H/O right inguinal hernia repair Social History Household Members: Spouse Housing: House Do you presently have visiting nurse or other home services: No Comment: refusing alarms Patient Tobacco Use Status: Never used Tobacco Advance Directives Date on File: 08/19/25 service: No Review of Systems Const All systems reviewed & are unremarkable except as noted in HPI and below Physical Exam Vital Signs: Last Vital Signs Pulse 82 09/17/25 11:39 Resp 16 09/17/25 11:39 BMI result Body Mass Index 32.8 Const General: comfortable, no acute distress and alert; No ill appearing Orientation/consciousness: patient oriented x3 Resp Effort & Inspection: normal respiratory effort, able to speak in complete sentences and not tachypneic GI Other: protuberant abdomen nondistended, soft mild incisional tenderness all incision sites are well healed with keisha in place and these were removed uneventfully - very small amount of skin edge separation of midline incision at superior aspect and steris were placed incisions clean appearing without surrounding erythema Palpation (GI): no guarding Skin Other: warm and dry as noted above Neuro General: patient oriented x3 and moves all extremities Assessment & Plan Assessment & Plan (1) Paroxysmal atrial fibrillation: Code(s): I48.0 - Paroxysmal atrial fibrillation Category: Medical (2) S/P colon resection: Comment: hand assisted laparoscopic left colectomy, mobilization of splenic flexure, small-bowel resection, drainage of abscess 09/04/25 Code(s): Z90.49 - Acquired absence of other specified parts of digestive tract Category: Surgical Plan 64 year old male s/p hand assisted laparoscopic left colectomy, mobilization of splenic flexure, small-bowel resection, drainage of abscess on 09/04/25. He had an eventful hospital course and was eventually discharged on 09/13/25. He is doing fairly well from a post operative standpoint but is having loose stools. His is non toxic appearing and his abdomen is benign with clean incisions. His keisha were removed uneventfully today. Loose stools likely multifactorial secondary to the surgery, slow return and coordination of GI function, lengthy abx courses. We discussed adding fiber into his diet to help bulk up his stools as well as pre/probiotic. We also will add iron supplementation given his anemia which may help. Repeat CBC ordered for today. Increasing activity as tolerated with heavy lifting restrictions. He is to return in 1 month for follow up, or sooner if he develops concerns. Cardiology referral was made for his follow up for PAF. He has a PCP appointment next week. Orders: Referrals Cardiology Referral I48.0 - Paroxysmal atrial fibrillation Medications: New ferrous fumarate 325 mg PO BID 60 tabs 0RF ascorbate calcium (vitamin C) 500 mg PO BID 60 tabs 0RF Coding Level of Care Code Global (78075) Diagnoses Paroxysmal atrial fibrillation I48.0 S/P colon resection Z90.49
[2025-09-17 11:39] VITALS: PULSE 82; RESP 16; BMI 32.8
--- OUTSIDE RECORDS SUMMARY | 2025-09-17 17:32 | XMS_ITS | Encounter Summary ---
Author Organization [facility] Address [address] [facility] [address] [place] [address] Phone Care Team Providers Care Rubber Turner Name Role Phone Jeremías Knox MD Primary Care Provid er Jeremías Knox MD Primary Care Provid er Angel Doty MBBS Unavailable [phone] Kaylene Gutierres RN Unavailable [phone] Reason for Referral * Consultation (Elective) - Closed Specialty Diagnoses / Procedures Referred By Contac t Referred To Contact Diagnoses Acute venous embolism and thrombosis of deep vessels of proximal lower extremity, unspecified laterality Jeremías Knox MD Phone: tel: fax: [facility] [address] [place] [address] Phone: tel: Referral ID Status Reason Start Date Expiration Date Visits Re quested Visits Authorized [id number] Closed 12/20/2017 12/20/2018 1 1 Encounter Details Date Type Department Care Team (Latest Contact Info) Description 12/20/2017 Transcribe Orders [facility] Department [address] [place] [address] Jeremías Knox MD [address] [facility] [address] [place] [phone] Acute venous embolism and thrombosis of deep [...] Associated Diagnoses Order Schedule Ambulatory referral to [facility] Anticoagulation Clinic Outpatient Referral Routine Acute [...] documented as of this encounter Care Teams Rubber Turner Relationship Specialty Start Date End Date Jeremías Knox MD [address] [place] [phone] PCP - General Pediatrics 08/29/17 05/08/22 Jeremías Knox MD [address] [place] [phone] PCP - General Pediatrics 05/09/22 Angel Doty MBBS [address] [place] [phone] [email or web address] Medical Oncology 02/27/24 Kaylene Gutierres, RN [address] [place] [phone] Registered Nurse 09/09/25 documented as of this encounter Additional Source Comments The information contained in this document represents components of the legal health record. It is not the complete legal health record.[facility]
--- OUTSIDE RECORDS SUMMARY | 2025-09-17 17:32 | XMS_ITS | Encounter Summary ---
Author Organization [facility] Address [address] [facility] [address] [place] [address] Phone Care Team Providers Care Check Out Clerk Name Role Phone Jeremías Knox MD Primary Care Provid er Jeremías Knox MD Primary Care Provid er Angel Doty MBBS Unavailable [phone] Kaylene Gutierres RN Unavailable [phone] Encounter Details Date Type Department Care Team (Latest Contact Info) Description 08/29/2017 Transcribe Orders [facility] [address] [place], [place] [phone] Jeremías Knox MD [address] [phone] Deep phlebothrombosis, antepartum, with delivery (Primary Dx) Social History Tobacco Use Types Packs/Day Years Used Date Smoking Tobacco: Never Assessed Sex and Gender Information Value Date Recorded Sex Assigned at Male 01/09/2022 8:52 AM EDT Legal Sex Male 4:23 PM EST Gender Identity Male 01/09/2022 8:52 AM EDT Sexual Orientation Straight 01/09/2022 8 :52 AM EDT documented as of this encounter Plan of Treatment Not on file documented as of this encounter Procedures Procedure Name Priority Date/Time Associated Diagnosis Comments PT-INR Routine 08/29/2017 10:58 AM EDT Deep phlebothrombosis, antepartum, with delivery documented in this encounter Results * (ABNORMAL) PT-INR (08/29/2017 10:58 AM EDT) PT 21.9(H) 10.2 - 12.9 sec [facility] INR 1.9(H) 0.9 - 1.1 [facility] Comment:Therapeutic range fo r oral Vitamin K antagonists: 2.0-3.5 Blood 08/29/2017 10:5 8 AM EDT 08/29/2017 3:58 PM EDT us Jeremías Knox MD LAB BLOOD BKR ORDERA BLES Edited Result - Final [address] [address] documented in this encounter Visit Diagnoses Diagnosis Deep phlebothrombosis, antepartum, with delivery- Primary documented in this encounter Additional Health Concerns Infection Onset Date Last Indicated Resolved Time CoV-Exposed Comment:Recent close contact 05/27/2020 05/27/2020 06/10/2020 1:27 AM EDT documented as of this encounter Care Teams Check Out Clerk Relationship Specialty Start Date End Date Jeremías Knox MD [address] [place] [phone] PCP - General Pediatrics 08/29/17 05/08/22 Jeremías Knox MD [address] [place] [phone] PCP - General Pediatrics 05/09/22 Angel Doty MBBS [address] [place] [phone] [email or web address] Medical Oncology 02/27/24 Kaylene Gutierres RN [address] [place] [address] Registered Nurse 09/09/25 documented as of this encounter Additional Source Comments The information contained in this document represents components of the legal health record. It is not the complete legal health record.[facility]
--- OUTSIDE RECORDS SUMMARY | 2025-09-17 17:32 | XMS_ITS | Encounter Summary ---
Author Organization [facility] Address [address] [facility] [address] [place] [phone] Phone Care Team Providers Care Home Performance Laborer Name Role Phone Jeremías Knox MD Primary Care Provid er Angel Doty MBBS Unavailable [phone] Kaylene Gutierres RN Unavailable [phone] Encounter Details Date Type Department Care Team (Late st Contact Info) Description 09/14/2025 Telephone Anticoagulation Clinic [address] [place] [phone] Kaylene Gutierres, RN [address] [place] [address] Social History Tobacco Use Types Packs/Day Years [...] Progress Notes * Kaylene Gutierres RN - 09/14/2025 1:11 PM EST Rusty reported he was discharged from [facility] 09/13/25. He resumed warfarin 7.5mg Satand 10mg Sunday and Sunday. He will test 09/16/25. documented in this encounter Plan of Treatment Scheduled Orders Name Type Priority Associated Diagnoses Orde r Schedule PT-INR Lab Routine Acute venous embolism and thrombosis of deep vessels of proximal lower extremity [I82.4Y9] Chronic anticoagulation Antiphospholipid syndrome Weekly for 55 Occurrences starting 09/14/2025 until 09/14/2026, 1 completed documented as of this encounter Results * (ABNORMAL) PT-INR (09/16/2025 9:07 AM EST) PT 32.7(H) 10.0 - 13.0 sec 09/16/2025 10:00 AM EST [facility] INR 2.6(H) 0.9 - 1.1 09/16/2025 10:00 AM EST [facility] Comment:Therapeutic Range 2. 0 - 3.5 Blood (Blood) Venipuncture / Unknown 09/16/2025 9:07 AM EST 09/16/2025 9:12 AM EST Jeremías Knox MD LAB BLOOD BKR ORDERA BLES Final Result [facility] [address] [place] [address] documented in this encounter Visit Diagnoses Diagnosis Acute venous embolism and thrombosis of deep vessels of proximal lower extremity [I82.4Y9]- Primary Acute venous embolism and thrombosis of deep vessels of proximal lower extremity Chronic anticoagulation Encounter for long-term (current) use of anticoagulants Antiphospholipid syndrome Primary hypercoagulable state documented in this encounter Care Teams Home Performance Laborer Relationship Specialty Start Date End Date Jeremías Knox MD [address] [phone] PCP - General Pediatrics 05/09/22 Angel Doty MBBS [address] [place] [phone] [email or web address] Medical Oncology 02/27/24 Kaylene Gutierres, RN [address] [place] [address] Registered Nurse 09/09/25 documented as of this encounter Additional Source Comments The information contained in this document represents components of the legal health record. It is not the complete legal health record.[facility]
--- OUTSIDE RECORDS SUMMARY | 2025-09-17 17:32 | XMS_ITS | Clinical Summary ---
Author Organization [facility] Address [address] [address] Phone Care Team Providers Care Research Engineer Marine Equipment Name Role Phone Jeremías Knox MD Primary Care Provid er Angel Doty MBBS Unavailable [phone] Kaylene Gutierres RN Unavailable [phone] Allergies Active Allergy Reactions Criticality Noted Date Comments Adhesive Tape-Silicones Rash High 11/10/2022 Bacitracin Rash High 11/10/2022 Celecoxib 06/03/2024 Cephalexin Rash Low 10/10/2022 Heparin Analogues Thrombocytopenia 08/20/2025 Kiwi 06/03/2024 Oxycodone-Acetaminophen GI Upset 11/28/2016 Sulfa (Sulfonamide Antibiotics) 05/0 01/2022 Sulfamethoxazole-Trimethoprim Swelling 2016 Medications fluticasone propionate (FLONASE) [...] Active Problems Problem Noted Date Diagnosed Date 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 2024 Antiphospholipid syndrome 07/12/2023 Assessment & Plan (06/25/2024 [...] Encounters Date Type Department Care Team Description 09/16/2025 Telephone [facility] [address] [place] [address] [place] [address] Kaylene Gutierres RN INR Check 09/14/2025 Telephone [facility]ticoagulation Clinic [address] [place] [address] Kaylene Gutierres RN 09/09/2025 Documentation [facility] [address] [place] [address] [place] [address] Kaylene Gutierres, RN 09/03/2025 Telephone [facility] at [address] [address] Angel Doty, BELKISBS surgery question 08/28/2025 Telephone Anticoagulation Clinic [address] [place] [phone] Kaylene Gutierres RN Interruption In Anticoagulant Therapy 08/28/2025 Documentation [facility] [address] [place] [address] Kaylene Gutierres RN 08/27/2025 10:11 AM EDT - 08/27/2025 11:59 PM EDT Hospital Encounter [facility] [address] [place] [address] Gallito Razo MD Discharge Disposition: Home or Self Care 08/27/2025 Documentation [facility] [address] [place] [address] Kaylene Gutierres RN INR Check 08/27/2025 Transcribe Orders [facility] Phle[facility] Main [address] [place] [address] Gallito Razo MD Perforated diverticulum of large intestine (Primary Dx) 08/25/2025 Documentation [facility] [address] [place] [phone] Kaylene Gutierres RN 08/25/2025 Transcribe Orders [facility] Specimen Processing [address] [place] [address] Gallito Razo MD Diverticulitis of large intestine with perforation and abscess without bleeding (Primary Dx) 08/24/2025 2:47 PM EDT - 08/24/2025 11:59 PM EDT Hospital Encounter [facility] [address] [place] [address] Gallito Razo MD Discharge Disposition: Home or Self Care 08/24/2025 Telephone [facility] Clinic [address] [place] [address] Kaylene Gutierres RN INR Check; Supratherapeutic INR Greater Or Equal To 5 08/20/2025 11:53 AM EDT - 08/20/2025 11:59 PM EDT Hospital Encounter [facility] [address] [place] [phone] Jeremías Knox MD Discharge Disposition: Home or Self Care 08/20/2025 Telephone [facility] [address] [place] [address] Kaylene Gutierres, RN INR Check (/) 08/18/2025 Documentation [facility] [address] [place] [phone] Kaylene Gutierres RN 07/15/2025 9:25 AM EDT - 07/15/2025 11:59 PM EDT Hospital Encounter [facility] [address] [place] [phone] Jeremías Knox MD Discharge Disposition: Home or Self Care 07/15/2025 Documentation [facility] [address] [place] [address] [place] [address] Kaylene Gutierres, RN INR Check 07/13/2025 Documentation Anticoagulation Clinic [address] [place] [address] Kaylene Gutierres RN 06/24/2025 Telephone [facility] [address] [facility] [place] [address] Roxana Gold MD, MPH Appointment from Last 3 Months Immunizations Immunization Administration [...] 1980 HIV ONE-TIME SCREENING (18-65 YEARS) 1980 COLOGUARD 2007 FIT TEST 2007 FOBT 2007 SIGMOIDOSCOPY 2007 VIRTUAL COLONOSCOPY 2007 PNEUMOCOCCAL VACCINES (50+ years) (1 of 1 - PCV) 2012 ZOSTER VACCINES (1 of 2) 2012 INFLUENZA VACCINE (#1) 2025 07/26/2017, 2015 COVID-19 VACCINE (3 - season) 2025 11/04/2020, 10/18/2020 CREATININE LEVEL 09/16/2026 09/16/2025, , 09/15/2024, Additional history exists POTASSIUM LEVEL 09/16/2026 09/16/2025, 07/31, 09/15/2024, Additional history exists SCREENING FOR DIABETES 09/16/2028 09/16/2025, 2022 LIPID PANEL 09/15/2029 09/15/2024, 05/0 10/2023, 07/13/2023, Additional history exists COLONOSCOPY 03/02/2032 03/02/2022 COLORECTAL CANCER SCREENING 03/02/2032 RSV VACCINE (1 - 1-dose 75+ series) 2037 SMOKING STATUS SCREENING (Once After 26 Yrs) [...] Procedure Name Priority Date/Time Associated Diagnosis Comments BASIC METABOLIC PANEL (BMP) Routine 09/16/2025 9:07 AM EST Diverticulitis of large intestine with perforation and abscess without bleeding PT-INR Routine 09/16/2025 9:07 AM EST Acute venous embolism and thrombosis of deep vessels of proximal lower extremity [I82.4Y9] Chronic anticoagulation Antiphospholipid syndrome CBC AND DIFFERENTIAL Routine 08/27/2025 10:37 AM [...] to Health Maintenance Results * (ABNORMAL) PT-INR (09/16/2025 9:07 AM EST) Only the most recent of5 resultswithin the time period is included. PT 32.7(H) 10.0 - 13.0 sec 09/16/2025 10:00 AM [facility] INR 2.6(H) 0.9 - 1.1 09/16/2025 10:00 AM [facility] Comment:Therapeutic Range 2. 0 - 3.5 Blood (Blood) Venipuncture / Unknown 09/16/2025 9:07 AM EST 09/16/2025 9:12 AM EST us Jeremías Knox MD LAB BLOOD BKR ORDERA BLES Final Result [address] [phone] * (ABNORMAL) Basic Metabolic Panel (BMP) (09/16/2025 9:07 AM EST) Only the most recent of2 resultswithin the time period is included. Sodium 134(L) 136 - 145 mmol/L 09/16/2025 9:52 AM [facility] Potassium 4.5 3.4 - 5.1 mmol/L 09/16/2025 9:52 AM [facility] Chloride 99 98 - 107 mmol/L 09/16/2025 9:52 AM [facility] CO2 24 20 - 31 mmol/L 09/16/2025 9:52 AM [facility] Anion Gap 11 3 - 17 mmol/L 09/16/2025 9:52 AM [facility] BUN 32(H) 6 - 23 mg/dL 09/16/2025 9:52 AM [facility] Creatinine 1.80(H) 0.60 - 1.30 mg/dL 09/16/2025 9:52 AM EST [facility] eGFR 42(L) >59 mL/min/1.7 3m2 09/16/2025 9:52 AM EST [facility] Comment:Estimated glomerular filtration rate calculated using the CKD-EPI refit equation. Glucose 117(H) 70 - 99 mg/dL 09/16/2025 9:52 AM EST [facility] Calcium 8.4(L) 8.5 - 10.5 mg/dL 09/16/2025 9:52 AM EST [facility] Blood (Blood) Venipuncture / Unknown 09/16/2025 9:07 AM EST 09/16/2025 9:12 AM EST us Gallito Razo MD LAB BLOOD BKR ORDERABLES Mandy pham Result Performing Organization Address City/State/[facility] Co de Phone Number [address] [address] * (ABNORMAL) CBC and differential (08/27/2025 10:37 AM EDT) Only the most recent of2 resultswithin the time period is included. WBC 14.65(H) 4.00 - 11.00 K/uL [facility] RBC 4.35(L) 4.50 - 5.90 M/uL [facility] HGB 12.9(L) 13.5 - 17.5 g/dL [facility] HCT 38.2(L) 41.0 - 53.0 % [facility] PLT 129(L) 150 - 450 K/uL [facility] MCV 87.8 80.0 - 100.0 fL [facility] MCH 29.7 27.0 - 31.0 pg [facility] MCHC 33.8 32.0 - 36.0 g/dL [facility] RDW 14.2 11.5 - 14.5 % [facility] MPV 8.6 8.4 - 12.0 fL [facility] NRBC 0.00 0.00 /100 WBCs [facility] ABSOLUTE NRBC 0.00 0.00 K/uL [facility] DIFF METHOD Manual [facility] TOTAL CELLS COUNTED 100 [facility] NEUTS 76.0 48.0 - 76.0 % [facility] BANDS 1.0 0 - 10 % [facility] LYMPHS 13.0(L) 18.0 - 41.0 % [facility] MONOS 6.0 4.0 - 11.0 % [facility] EOS 1.0 0.0 - 5.0 % [facility] BASOS 1.0 0.0 - 1.5 % [facility] MYELOS 1.0(H) 0 % [facility] METAS 1.0(H) 0 % [facility] ABSOLUTE NEUTS 11.28(H) 1.92 - 7.60 K/uL [facility] ABSOLUTE LYMPHS 1.90 0.72 - 4.10 K/uL [facility] ABSOLUTE MONOS 0.88 0.16 - 1.10 K/uL [facility] ABSOLUTE EOS 0.15 0.00 - 0.50 K/uL [facility] ABSOLUTE BASOS 0.15 0.00 - 0.15 K/uL [facility] ABSOLUTE MYELOS 0.15 K/uL [facility] ABSOLUTE METAS 0.15 K/uL [facility] Blood 08/27/2025 10:3 7 AM EDT 08/27/2025 10:44 AM EDT us Gallito Razo MD LAB BLOOD BKR ORDERABLES Mandy l Result [address] [id number] * (ABNORMAL) Lipid panel (09/15/2024 7:36 AM EST) HDL 45 mg/dL [facility] Comment: Interpretation <40 mg/dL: Low HDL cholesterol (major risk factor for CHD) Greater than or equal to 60 mg/dL: High HDL cholesterol ( negative risk factor for CHD) HDL - cholesterol is affected by a number of factors, e.g. smoking, excerise, hormones, sex and age. CHOLESTEROL 252(H) 0 - 240 mg/dL [facility] TRIGLYCERIDES 260(H) 30 - 160 mg/dL [facility] LDL 155(H) 50 - 129 mg/dL [facility] Comment: LDL levels in terms of risk for coronary heart disease: <100 mg/dL: Optimal 100-129 mg/dL: Near or above optimal 130-159 mg/dL: Borderline high 160-189 mg/dL: High >190 mg/dL: Very High CARDIAC RISK RATIO 5.6(H) 3.4 - 5.0 C [facility] Blood 09/15/2024 7:36 AM EST 09/15/2024 7:40 AM EST us Jeremías Knox MD LAB BLOOD BKR ORDERA BLES Final Result [address] [address] * ENDOSCOPY, COLON (03/02/2022 2:18 PM EDT) Narrative Transcriptions Kari Argueta MD - 03/02/2022 2:18 PM EDT Patient Name: Alejandro Correa Attending MD:: KARI ARGUETA MD Procedure Date: 03/02/2022 2:18 PM Date of : 1960 Age: 61 Admit Type: Outpatient Gender: Male Room: [facility] Referring MD: Mick Knox Exam Type: Colonoscopy [...] monitored continuously. The Olympus adult variable colonoscope [id number] #[id number] was introduced through the anus and [...] 2:18 PM Procedure Code(s): --- Professional --- 02045, Colonoscopy, flexible; with biopsy, single or multiple --- Technical --- 80515, Colonoscopy, flexible; with biopsy, single or multiple Diagnosis Code(s): --- Professional --- R19.7, Diarrhea, unspecified R63.4, Abnormal weight loss K57.30, Diverticulosis of large intestine without perforation or abscess without bleeding --- Technical --- R19.7, Diarrhea, unspecified R63.4, Abnormal weight loss K57.30, Diverticulosis of large intestine without perforation or abscess without bleeding CPT copyright 2020 [employer]. All rights reserved. The codes documented in this report are preliminary and upon clerical adjudicator reviewmay be revised to meet current compliance requirements. Procedure Date: 03/02/2022 2:18:28 PM [address] [place] [address] Mick Knox MD GI PROCEDURE ORDERAB LES Final Result from Last 3 Months or Most Recently Relevant to Health Maintenance Insurance Advance Directives For more information, please contact: [phone] (9AM - 5PM Sharmila/[facility], Sunday-Sunday) * Full Code (Latest Code Status on File) Date Activated Date Inactivated Comments 07/12/2023 7:52 PM Question Answer Comments Code Status Confirmed With: Patient Care Teams Research Engineer Marine Equipment Relationship Specialty Start Date End Date Jeremías Knox MD [address] [place] [phone] PCP - General Pediatrics 05/09/22 Angel Doty MBBS [address] [place] [phone] [email or web address] Medical Oncology 02/27/24 Kaylene Gutierres, RN [address] [place] [address] [email or web address] Registered Nurse 09/09/25 Additional Source Comments The information contained in this document represents components of the legal health record. It is not the complete legal health record.[facility]
--- OUTSIDE RECORDS SUMMARY | 2025-09-17 17:32 | XMS_ITS | Encounter Summary ---
Author Organization [facility] Address [address] [facility] [address] [place] [address] Phone Care Team Providers Care Harp Repairer Name Role Phone Jeremías Knox MD Primary Care Provid er Jeremías Knox MD Primary Care Provid er Angel Doty MBBS Unavailable [phone] Kaylene Gutierres RN Unavailable [phone] Encounter Details Date Type Department Care Team (Latest Contact Info) Description 09/27/2017 Transcribe Orders [facility] Phle[facility] Main [address] [place], [place] [phone] Jeremías Knox MD [address] [phone] Deep phlebothrombosis, antepartum, with delivery [...] documented as of this encounter Care Teams Harp Repairer Relationship Specialty Start Date End Date Jeremías Knox MD [address] [place] [phone] PCP - General Pediatrics 08/29/17 05/08/22 Jeremías Knox MD [address] [place] [phone] PCP - General Pediatrics 05/09/22 Angel Doty MBBS [address] [place] [phone] [email or web address] Medical Oncology 02/27/24 Kaylene Gutierres, RN [address] [place] [phone] [email or web address] Registered Nurse 09/09/25 documented as of this encounter Additional Source Comments The information contained in this document represents components of the legal health record. It is not the complete legal health record.[facility]
--- OUTSIDE RECORDS SUMMARY | 2025-09-17 17:32 | XMS_ITS | Encounter Summary ---
Author Organization [facility] Address 399 [facility] [address] [place] [address] Phone Care Team Providers Care Oxyacetylene Torch Operator Name Role Phone Jeremías Knox MD Primary Care Provid er Jeremías Knox MD Primary Care Provid er Angel Doty MBBS Unavailable [phone] Kaylene Gutierres RN Unavailable [phone] Reason for Referral * MRI/CAT Scan - Closed Specialty Diagnoses / Procedures Referred By Emeka ramesh Referred To Contact Radiology Diagnoses Visual hallucinations Procedures CT Head CHG CT SCAN HEAD COMBO Alden Segundo DO Phone: tel: fax: [email or web address] Referral ID Status Reason Start Date Expiration Date Visits Re quested Visits Authorized [id number] Closed 12/29/2021 06/11/2022 1 1 Encounter Details Date Type Department Care Team (Latest Contact Info) Description 12/29/2021 Transcribe Orders Virtual Department [address] [place] [address] Alden Segundo DO [address] [place] [address] [email or web address] Visual hallucinations (Primary Dx) Social History [...] represent an incidental meningioma. Alden Segundo DO [facility] HEAD/NECK Final Result documented in this encounter Visit Diagnoses Diagnosis Visual hallucinations- Primary Psychophysical visual disturbances Visual hallucinations Psychophysical visual disturbances documented in this encounter Care Teams Oxyacetylene Torch Operator Relationship Specialty Start Date End Date Jeremías Knox MD [address] [place] [address] [phone] PCP - General Pediatrics 08/29/17 05/08/22 Jeremías Knox MD [address] [place] [address] [phone] PCP - General Pediatrics 05/09/22 Angel Doty MBBS [address] [place] [address] [phone] [email or web address] Medical Oncology 02/27/24 Kaylene Gutierres, RN [address] [place] [address] Registered Nurse 09/09/25 documented as of this encounter Additional Source Comments The information contained in this document represents components of the legal health record. It is not the complete legal health record.[facility]
--- OUTSIDE RECORDS SUMMARY | 2025-09-17 17:32 | XMS_ITS | Encounter Summary ---
Author Organization [facility] Address 399 [facility] [address] [place] [address] Phone Care Team Providers Care Transportation Maintenance Specialist Name Role Phone Jeremías Knox MD Primary Care Provid er Angel Doty MBBS Unavailable [phone] Kaylene Gutierres RN Unavailable [phone] Reason for Referral * MRI/CAT Scan - Closed Specialty Diagnoses / Procedures Referred By Contac t Referred To Contact Radiology Diagnoses Benign neoplasm of cerebral meninges Procedures MRI Brain CHG MRI BRAIN COMBO System, Provider Not In, [facility] [address] [address] Referral ID Status Reason Start Date Expiration Date Visits Re quested Visits Authorized [id number] Closed 08/20/2024 10/18/2024 1 1 Encounter Details Date Type Department Care Team (Late st Contact Info) Description 08/20/2024 Transcribe Orders Virtual Department [address] [place] [address] System, Provider Not In, [facility] [address] [address] Benign neoplasm of cerebral meninges (Primary Dx) [...] clinician's provided indication for this examination in [facility]: Outside Radiology Order; benign cerebral meninges TECHNIQUE: [...] clinician's provided indication for this examination in [facility]:Outside Radiology Order; benign cerebral meninges TECHNIQUE: MRI [...] meninges documented in this encounter Care Teams Transportation Maintenance Specialist Relationship Specialty Start Date End Date Jeremías Knox MD [address] [phone] PCP - General Pediatrics 05/09/22 Angel Doty MBBS [address] [place] [address] [phone] [email or web address] Medical Oncology 02/27/24 Kaylene Gutierres, RN [address] [place] [address] Registered Nurse 09/09/25 documented as of this encounter Additional Source Comments The information contained in this document represents components of the legal health record. It is not the complete legal health record.[facility]
--- OUTSIDE RECORDS SUMMARY | 2025-09-17 17:32 | XMS_ITS | Encounter Summary ---
Author Organization [facility] Address 399 [facility] [address] [place] [address] Phone Care Team Providers Care Regional Planner Name Role Phone Jeremías Knox MD Primary Care Provid er Jeremías Knox MD Primary Care Provid er Angel Doty MBBS Unavailable [phone] Kaylene Gutierres RN Unavailable [phone] Encounter Details Date Type Department Care Team (Late st Contact Info) Description 05/03/2022 Procedure [facility] [employer], [address] [address] Social History Tobacco Use Types Packs/Day Years [...] on filedocumented in this encounter Care Teams Regional Planner Relationship Specialty Start Date End Date Jeremías Knox MD 35 [facility] [address] [place] [phone] PCP - General Pediatrics 11/1/17 7/11/22 Jeremías Knox MD [address] [phone] PCP - General Pediatrics 05/09/22 Angel Doty MBBS [address] [phone] [email or web address] Medical Oncology 02/27/24 Kaylene Gutierres, RN [address] [place] [address] [email or web address] Registered Nurse 09/09/25 documented as of this encounter Additional Source Comments The information contained in this document represents components of the legal health record. It is not the complete legal health record.[facility]
--- OUTSIDE RECORDS SUMMARY | 2025-09-17 17:32 | XMS_ITS | Encounter Summary ---
Author Organization [facility] Address 399 [facility] [address] [place] [phone] Phone Care Team Providers Care Plug Overwrap Machine Tender Name Role Phone Jeremías Knox MD Primary Care Provid er Jeremías Knox MD Primary Care Provid er Angel Doty MBBS Unavailable [phone] Kaylene Gutierres RN Unavailable [phone] Reason for Referral * MRI/CAT Scan - Closed Specialty Diagnoses / Procedures Referred By Emeka ramesh Referred To Contact Radiology Diagnoses Benign neoplasm of cerebral meninges Procedures MRI Brain CHG MRI BRAIN CHG MRI BRAIN COMBO Jeremías Knox MD Phone: tel: fax: Referral ID Status Reason Start Date Expiration Date Visits Re quested Visits Authorized [id number] Closed 05/03/2022 07/02/2022 1 1 Encounter Details Date Type Department Care Team (Latest Contact Info) Description 05/03/2022 Transcribe Orders Virtual Department [address] [place] [address] Jeremías Knox MD [address] [phone] Benign neoplasm of cerebral meninges [...] meninges documented in this encounter Care Teams Plug Overwrap Machine Tender Relationship Specialty Start Date End Date Jeremías Knox MD [address] [place] [phone] PCP - General Pediatrics 08/29/17 05/08/22 Jeremías Knox MD [address] [phone] PCP - General Pediatrics 05/09/22 Angel Doty MBBS [address] [phone] [email or web address] Medical Oncology 02/27/24 Kaylene Gutierres, RN [address] [place] [phone] [email or web address] Registered Nurse 09/09/25 documented as of this encounter Additional Source Comments The information contained in this document represents components of the legal health record. It is not the complete legal health record.[facility]
--- OUTSIDE RECORDS SUMMARY | 2025-09-17 17:32 | XMS_ITS | Encounter Summary ---
Author Organization [facility] Address [address] [facility] [address] [place] [address] Phone Care Team Providers Care Certified Nurse Midwife Name Role Phone Jeremías Knox MD Primary Care Provid er Angel Doty MBBS Unavailable [phone] Kaylene Gutierres RN Unavailable [phone] Reason for Visit * Reason Comments INR Check Encounter Details Date Type Department Care Team (Late st Contact Info) Description 09/16/2025 Telephone [facility] [address] [place] [address] [place] [address] Kaylene Gutierres, RN 30 [place] [address] [email or web address] INR Check Social History Tobacco Use Types [...] Progress Notes * Kaylene Gutierres RN - 09/16/2025 10:59 AM EST INR is in range at 2.6. Phone call with Rusty. Rusty reported he is feeling better every day. A little tired today after coming to the lab. He seessurgeon tomorrow. Hx reviewed. Rusty will continue the warfarin 50mg/week and test in 3 weeks. Instructions reviewed with Rusty. He verbalized understanding and confirmed he is taking the warfarin as instructed. Detailed findings, dosing and next appt date is per AMS flowsheets. All questions were answered. Confirmed instructions with teach back & agrees with plan. Patient has been educated and verbalizes understanding of the following: the indication for anticoagulation the importance of adherence to medication dose, schedule laboratory testing per clinician instruction potential food/medication interactions clotting risks associated with their disease state bleeding risks associated with anticoagulants to call the office or after hours service with any questions or concerns INR Source: [facility] lab. 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- Primary Long-term (current) use of anticoagulants Acute venous embolism and thrombosis of deep vessels of proximal lower extremity [I82.4Y9] Acute venous embolism and thrombosis of deep vessels of proximal lower extremity Antiphospholipid syndrome Primary hypercoagulable state documented in this encounter Care Teams Certified Nurse Midwife Relationship Specialty Start Date End Date Jeremías Knox MD [address] [phone] PCP - General Pediatrics 05/09/22 Angel Doty MBBS [address] [phone] [email or web address] Medical Oncology 02/27/24 Kaylene Gutierres, RN 30 [place] [address] [email or web address] Registered Nurse 09/09/25 documented as of this encounter Additional Source Comments The information contained in this document represents components of the legal health record. It is not the complete legal health record.[facility]
--- OUTSIDE RECORDS SUMMARY | 2025-09-17 17:32 | XMS_ITS | Encounter Summary ---
Author Organization [facility] Address [address] [employer] [facility] [address] [place] [address] Phone Care Team Providers Care Family Psychologist Name Role Phone Jeremías Knox MD Primary Care Provid er Angel Doty MBBS Unavailable [phone] Kaylene Gutierres RN Unavailable [phone] Encounter Details Date Type Department Care Team (Late st Contact Info) Description 07/12/2023 Procedure Pass [facility], Ct Scan - [facility] 30 [place] [address] Social History Tobacco Use Types Packs/Day Years [...] 3:04 PM EDT Analy Barksdale RN * [place] Suicide Severity Rating Scale (Screener/Recent Self-Report) Question [...] on filedocumented in this encounter Care Teams Family Psychologist Relationship Specialty Start Date End Date Jeremías Knox MD [address] [phone] PCP - General Pediatrics 05/09/22 Angel Doty MBBS [address] [phone] [email or web address] Medical Oncology 02/27/24 Kaylene Gutierres RN 30 [place] [address] Registered Nurse 11/12/25 documented as of this encounter Additional Source Comments The information contained in this document represents components of the legal health record. It is not the complete legal health record.[facility]
--- OUTSIDE RECORDS SUMMARY | 2025-09-17 17:32 | XMS_ITS | Encounter Summary ---
Author Organization [facility] Address [address] [facility] [address] [place] [address] Phone Care Team Providers Care Lipstick Molder Name Role Phone Jeremías Knox MD Primary Care Provid er Jeremías Knox MD Primary Care Provid er Angel Doty MBBS Unavailable [phone] Kaylene Gutierres RN Unavailable [phone] Encounter Details Date Type Department Care Team (Late st Contact Info) Description 12/29/2021 Procedure Pass [facility], Ct Scan - [address] [address] Social History Tobacco Use Types Packs/Day Years [...] on filedocumented in this encounter Care Teams Lipstick Molder Relationship Specialty Start Date End Date Jeremías Knox MD 35 [facility] [address] [place] [address] PCP - General Pediatrics 08/29/17 05/08/22 Jeremías Knox MD [address] [phone] PCP - General Pediatrics 05/09/22 Angel Doty MBBS [address] [phone] [email or web address] Medical Oncology 02/27/24 Kaylene Gutierres, RN 30 [place] [address] [email or web address] Registered Nurse 09/09/25 documented as of this encounter Additional Source Comments The information contained in this document represents components of the legal health record. It is not the complete legal health record.[facility]
--- OUTSIDE RECORDS SUMMARY | 2025-09-17 17:32 | XMS_ITS | Encounter Summary ---
Author Organization [facility] Address [address] [facility] [address] [place] [address] Phone Care Team Providers Care Legislative Analyst Name Role Phone Jeremías Knox MD Primary Care Provid er Jeremías Knox MD Primary Care Provid er Angel Doty MBBS Unavailable [phone] Kaylene Gutierres RN Unavailable [phone] Encounter Details Date Type Department Care Team (Late st Contact Info) Description 03/02/2022 Procedure Pass [facility] Admitting Dept Virtual Department 30 [place] [address] Social History Tobacco Use Types Packs/Day Years [...] on filedocumented in this encounter Care Teams Legislative Analyst Relationship Specialty Start Date End Date Jeremías Knox MD 35 [facility] [address] [place] [address] PCP - General Pediatrics 08/29/17 05/08/22 Jeremías Knox MD [address] [phone] PCP - General Pediatrics 05/09/22 Angel Doty MBBS [address] [phone] [email or web address] Medical Oncology 02/27/24 Kaylene Gutierres, RN 30 [place] [address] [email or web address] Registered Nurse 09/09/25 documented as of this encounter Additional Source Comments The information contained in this document represents components of the legal health record. It is not the complete legal health record.[facility]
--- OUTSIDE RECORDS SUMMARY | 2025-09-17 17:32 | XMS_ITS | Encounter Summary ---
Author Organization [facility] Address [address] [facility] [address] [place] [address] Phone Care Team Providers Care Gliding Pilot Instructor Name Role Phone Jeremías Knox MD Primary Care Provid er Jeremías Knox MD Primary Care Provid er Angel Doty MBBS Unavailable [phone] Kaylene Gutierres RN Unavailable [phone] Encounter Details Date Type Department Care Team (Latest Contact Info) Description 12/27/2017 Transcribe Orders [facility] Phleb Main [address] [place] [address] Jeremías Knox MD [address] [phone] Essential hypertension, benign (Primary Dx) [...] EST) PSA 1.17 0 - 4.00 ng/mL [facility] Blood 12/27/2017 9:10 AM EST 12/27/2017 9:16 AM EST Jeremías Knox MD LAB BLOOD BKR ORDERA BLES Final Result Performing Organization Address [facility] Co de Phone Number [address] [address] * (ABNORMAL) CBC (12/27/2017 9:05 AM EST) WBC 4.12 3.40 - 11.20 K/uL [facility] RBC 5.72(H) 4.50 - 5.50 M/uL [facility] HGB 18.0(H) 13.0 - 17.0 g/dL [facility] HCT 51.8(H) 40.0 - 51.0 % [facility] PLT 171 130 - 400 K/uL [facility] MCV 90.6 79.0 - 98.0 fL [facility] MCH 31.5 27.0 - 34.8 pg [facility] MCHC 34.7 31.5 - 36.0 g/dL [facility] RDW 12.6 10.8 - 14.6 % [facility] MPV 9.7 9.4 - 12.4 fl [facility] NRBC 0.00 /100 WBCs [facility] ABSOLUTE NRBC 0.00 K/uL [facility] Blood 12/27/2017 9:05 AM EST 12/27/2017 9:17 AM EST Jeremías Knox MD LAB BLOOD BKR ORDERA BLES Final Result [address] [address] * (ABNORMAL) Lipid panel (12/27/2017 9:05 AM EST) HDL 53 mg/dL [facility] Comment: Interpretation: Risk Level Males Decreased >45 mg/dL Average 40-45 mg/dL Increased <40 mg/dL CHOLESTEROL 287(H) 0 - 240 mg/dL [facility] TRIGLYCERIDES 165(H) 30 - 160 mg/dL [facility] LDL 201(H) 50 - 129 mg/dL [facility] Comment: LDL levels in terms of risk for coronary heart disease: <100 mg/dL: Optimal 100-129 mg/dL: Near or above optimal 130-159 mg/dL: Borderline high 160-189 mg/dL: High >190 mg/dL: Very High CARDIAC RISK RATIO 5.4(H) 3.4 - 5.0 [facility] Blood 12/27/2017 9:05 AM EST 12/27/2017 9:17 AM EST Jeremías Knox MD LAB BLOOD BKR ORDERA BLES Final Result Performing Organization Address City/[facility]/ZIP Co de Phone Number [address] [address] * (ABNORMAL) Basic metabolic panel (12/27/2017 9:05 AM EST) SODIUM 136 133 - 146 mmol/L [facility] CHLORIDE 96 96 - 108 mmol/L [facility] POTASSIUM 4.1 3.3 - 5.1 mmol/L [facility] CO2 28 21 - 35 mmol/L [facility] BUN 26(H) 6 - 19 mg/dL [facility] CREATININE 0.90 0.5 - 1.5 mg/dL [facility] GLUCOSE 93 70 - 99 mg/dL [facility] CALCIUM 9.6 8.4 - 10.3 mg/dL [facility] EGFR >60 >60 mL/min/1.7 3m2 [facility] Comment:Abnormal if <60. If patient is -Greek, multiply the result by 1.21. ANION GAP 16 10 - 20 mmol/L [facility] Blood 12/27/2017 9:05 AM EST 12/27/2017 9:17 AM EST Jeremías Knox MD LAB BLOOD BKR ORDERA BLES Final Result Performing Organization Address City/[facility]/ZIP Co de Phone Number [address] [address] documented in this encounter Visit Diagnoses Diagnosis Essential hypertension, benign- Primary documented in this encounter Additional Health Concerns Infection Onset Date Last Indicated Resolved Time CoV-Exposed Comment:Recent close contact 05/27/2020 05/27/2020 06/10/2020 1:27 AM EDT documented as of this encounter Care Teams Gliding Pilot Instructor Relationship Specialty Start Date End Date Jeremías Knox MD [address] [phone] PCP - General Pediatrics 08/29/17 05/08/22 Jeremías Knox MD [address] [phone] PCP - General Pediatrics 05/09/22 Angel Doty MBBS [address] [place] [phone] [email or web address] Medical Oncology 02/27/24 Kaylene Gutierres, RN 30 [place] [address] Registered Nurse 09/09/25 documented as of this encounter Additional Source Comments The information contained in this document represents components of the legal health record. It is not the complete legal health record.[facility]
--- OUTSIDE RECORDS SUMMARY | 2025-09-17 17:32 | XMS_ITS | Encounter Summary ---
Author Organization [facility] Address [address] [facility] [address] [place] [address] Phone Care Team Providers Care Managed Care Liaison Name Role Phone Jeremías Knox MD Primary Care Provid er Angel Doty MBBS Unavailable [phone] Kaylene Gutierres RN Unavailable [phone] Encounter Details Date Type Department Care Team (Late st Contact Info) Description 08/20/2024 Procedure Pass [facility], [address] [address] Social History Tobacco Use Types Packs/Day Years [...] on filedocumented in this encounter Care Teams Managed Care Liaison Relationship Specialty Start Date End Date Jeremías Knox MD [address] [place] [phone] PCP - General Pediatrics 05/09/22 Angel Doty MBBS [address] [place] [phone] [email or web address] Medical Oncology 02/27/24 Kaylene Gutierres, RN [address] [place] [address] Registered Nurse 09/09/25 documented as of this encounter Additional Source Comments The information contained in this document represents components of the legal health record. It is not the complete legal health record.[facility]
--- OUTSIDE RECORDS SUMMARY | 2025-09-17 17:32 | XMS_ITS | Encounter Summary ---
Author Organization [facility] Address [address] [employer] [facility] [address] [place] [address] Phone Care Team Providers Care Oil Developer Name Role Phone Jeremías Knox MD Primary Care Provid er Jeremías Knox MD Primary Care Provid er Angel Doty MBBS Unavailable [phone] Kaylene Gutierres RN Unavailable [phone] Encounter Details Date Type Department Care Team (Latest Contact Info) Description 09/27/2017 Transcribe Orders [facility] Phleb Main 30 [place], [place] [phone] Jeremías Knox MD [address] [phone] Deep phlebothrombosis, antepartum, with delivery [...] EST) PT 26.1(H) 10.2 - 12.9 sec [facility] INR 2.3(H) 0.9 - 1.1 [facility] Comment:Therapeutic range fo r oral Vitamin K antagonists: 2.0-3.5 Blood 09/27/2017 9:43 AM EST 09/27/2017 9:48 AM EST us Jeremías Knox MD LAB BLOOD BKR ORDERA BLES Final Result [address] [address] documented in this encounter Visit Diagnoses Diagnosis Deep phlebothrombosis, antepartum, with delivery- Primary documented in this encounter Additional Health Concerns Infection Onset Date Last Indicated Resolved Time CoV-Exposed Comment:Recent close contact 05/27/2020 05/27/2020 06/10/2020 1:27 AM EDT documented as of this encounter Care Teams Oil Developer Relationship Specialty Start Date End Date Jeremías Knox MD [address] [place] [phone] PCP - General Pediatrics 08/29/17 05/08/22 Jeremías Knox MD [address] [place] [phone] PCP - General Pediatrics 05/09/22 Angel Doty MBBS [address] [place] [phone] [email or web address] Medical Oncology 02/27/24 Kaylene Gutierres, YONNY [address] [place] [address] Registered Nurse 09/09/25 documented as of this encounter Additional Source Comments The information contained in this document represents components of the legal health record. It is not the complete legal health record.[facility]
--- OUTSIDE RECORDS SUMMARY | 2025-09-17 17:32 | XMS_ITS | Encounter Summary ---
Author Organization [facility] Address 399 [facility] [address] [place] [address] Phone Care Team Providers Care Hvac Sales Representative Name Role Phone Jeremías Knox MD Primary Care Provid er Jeremías Knox MD Primary Care Provid er Angel Doty MBBS Unavailable [phone] Kaylene Gutierres RN Unavailable [phone] Reason for Referral * Consultation (Elective) - Closed Specialty Diagnoses / Procedures Referred By Contreji t Referred To Contact Diagnoses Deep vein thrombosis (DVT) of non-extremity vein, unspecified chronicity Jeremías Knox MD Phone: tel: fax: [facility] [address] [place] [address] Phone: tel: Referral ID Status Reason Start Date Expiration Date Visits Re quested Visits Authorized [id number] Closed 04/29/2021 04/29/2022 1 1 Encounter Details Date Type Department Care Team (Latest Contact Info) Description 04/29/2021 Transcribe Orders [facility] Department 30 [place] [address] Jeremías Knox MD [address] [phone] Deep vein thrombosis (DVT) of non-extremity [...] Associated Diagnoses Order Schedule Ambulatory referral to [facility] Outpatient Referral Routine Deep vein thrombosis (DVT) of non-extremity vein, unspecified chronicity Ordered: 04/29/2021 documented as of this encounter Visit Diagnoses Diagnosis Deep vein thrombosis (DVT) of non-extremity vein, unspecified chronicity- Primary documented in this encounter Care Teams Hvac Sales Representative Relationship Specialty Start Date End Date Jeremías Knox MD [address] [place] [phone] PCP - General Pediatrics 08/29/17 05/08/22 Jeremías Knox MD [address] [place] [phone] PCP - General Pediatrics 05/09/22 Anegl Doty MBBS [address] [place] [phone] [email or web address] Medical Oncology 02/27/24 Kaylene Gutierres, RN 30 [place] [address] Registered Nurse 09/09/25 documented as of this encounter Additional Source Comments The information contained in this document represents components of the legal health record. It is not the complete legal health record.[facility]
--- OUTSIDE RECORDS SUMMARY | 2025-09-17 17:33 | XMS_ITS | Encounter Summary ---
Author Organization [facility] Address [address] [facility] [address] [place] [address] Phone Care Team Providers Care Glycerine Plant Operator Name Role Phone Jeremías Knox MD Primary Care Provid er Angel Doty MBBS Unavailable [phone] Kaylene Gutierres RN Unavailable [phone] Encounter Details Date Type Department Care Team (Late st Contact Info) Description 07/12/2023 Procedure Pass [facility], Ct Scan - [facility] 30 [place] [address] Social History Tobacco Use Types Packs/Day Years [...] 3:04 PM EDT Analy Barksdale RN * [place] Suicide Severity Rating Scale (Screener/Recent Self-Report) Question [...] on filedocumented in this encounter Care Teams Glycerine Plant Operator Relationship Specialty Start Date End Date Jeremías Knox MD [address] [phone] PCP - General Pediatrics 05/09/22 Angel Doty MBBS [address] [phone] [email or web address] [email or web address] Medical Oncology 02/27/24 Kaylene Gutierres RN 30 [place] [address] Registered Nurse 11/12/25 documented as of this encounter Additional Source Comments The information contained in this document represents components of the legal health record. It is not the complete legal health record.[facility]
--- OUTSIDE RECORDS SUMMARY | 2025-09-17 17:33 | XMS_ITS | Encounter Summary ---
Author Organization [facility] Address [address] [facility] [address] [place] [address] Phone Care Team Providers Care Olericulture Professor Name Role Phone Jeremías Knox MD Primary Care Provid er Angel Doty MBBS Unavailable [phone] Kaylene Gutierres RN Unavailable [phone] Encounter Details Date Type Department Care Team (Latest Contact Info) Description 06/13/2023 Transcribe Orders Virtual Department 30 [place] [address] Jeremías Knox MD 35 [facility] [address] [place] [phone] Benign neoplasm of cerebral meninges (Primary [...] Primary documented in this encounter Care Teams Olericulture Professor Relationship Specialty Start Date End Date Jeremías Knox MD [address] [phone] PCP - General Pediatrics 05/09/22 Angel Doty MBBS [address] [phone] [email or web address] Medical Oncology 02/27/24 Kaylene Gutierres, RN [address] [place] [address] [email or web address] Registered Nurse 09/09/25 documented as of this encounter Additional Source Comments The information contained in this document represents components of the legal health record. It is not the complete legal health record.[facility]
--- OUTSIDE RECORDS SUMMARY | 2025-09-17 17:33 | XMS_ITS | Encounter Summary ---
Author Organization [facility] Address [address] [facility] [address] [place] [address] Phone Care Team Providers Care Taxi Driver Name Role Phone Jeremías Knox MD Primary Care Provid er Angel Doty MBBS Unavailable [phone] Kaylene Gutierres RN Unavailable [phone] Encounter Details Date Type Department Care Team (Late st Contact Info) Description 07/12/2023 Procedure Pass [facility], [address] [address] Social History Tobacco Use Types Packs/Day Years [...] 3:04 PM EDT Analy Barksdale RN * [place] Suicide Severity Rating Scale (Screener/Recent Self-Report) Question [...] on filedocumented in this encounter Care Teams Taxi Driver Relationship Specialty Start Date End Date Jeremías Knox MD [address] [phone] PCP - General Pediatrics 05/09/22 Angel Doty MBBS [address] [phone] [email or web address] Medical Oncology 02/27/24 Kaylene Gutierres RN 30 [place] [address] Registered Nurse 09/09/25 documented as of this encounter Additional Source Comments The information contained in this document represents components of the legal health record. It is not the complete legal health record.[facility]
== END 2025-09-17 12:04 | disposition home or self-care (01) ==
LOC: HO.HGS 11:19
PROVIDERS: PCP Internal Medicine; Visit Provider Physician Assistant Surgical
DX: I48.0 Paroxysmal atrial fibrillation (principal); Z90.49 Acquired absence of other specified parts of digestive tract
CPT/HCPCS: 99024

== ENCOUNTER 2025-10-14 14:37 | Outpatient (AMB) | payer OTHER, SELFPAY ==
[2025-10-14 14:43] VITALS: BP 124/86; BMI 30.4
--- NOTE | 2025-10-14 14:43 | A.OFFVIS_ITS ---
Vital Signs 10/14/25 14:43 Height 5 ft 8 in Weight 200 lb BMI 30.4 BP 124/86 Blood Pressure Location Rt brachial Position Sitting Intake Visit Reasons: 1mth S/P sigmoid resection Intake Note: Patient here post op assessment post sigmoid resection. Follow up from last office visit 09-17-2025. Patient c/o: watery stools. Reports had 12 bowel movements yesterday. 5 of those were just gas. Taking Simethicone, zofran as needed. Worried about going back to work since he experienced 4 accidents were he did not make it to the bathroom since surgery. Hoist Mechanic Required: No Accompanied by: Spouse Allergies heparin Allergy (Severe, Verified 10/14/25 14:58) heparin induced thrombocytopenia bacitracin Allergy (Verified 10/14/25 14:58) Unknown celecoxib (From Celebrex) Allergy (Verified 10/14/25 14:58) Unknown cephalexin (From Keflex) Allergy (Verified 10/14/25 14:58) Unknown sulfacetamide (From Sulfamide) Allergy (Verified 10/14/25 14:58) Unknown sulfamethoxazole (From Bactrim) Allergy (Verified 10/14/25 14:58) Unknown trimethoprim (From Bactrim) Allergy (Verified 10/14/25 14:58) Unknown HPI HPI 1mth S/P sigmoid resection: Details: He is feeling as though he is slowly improving but is still struggling with a few issues. To start he is having daily nausea that makes it difficult for him to eat and sometimes even take his medications. His appetite has been way down due to this nausea. It is well controlled with Zofran which he takes as needed. Additionally he is having trouble with bowel movements. States that he is constipated in the mornings having small hard stools then towards the end of the day he begins having frequent loose stools up to 10-12 times per day and additionally has episodes of incontinence where he feels like he may leak stool or was unable to get to the bathroom on time. He has been consistent with increasing fiber through his diet, states he is eating lots of oatmeal. He has taken a half dose of Imodium which did help his symptoms but he was hesitant to due to recommendations from our nurse Zoltan regarding antidiarrheals with possible infectious diarrhea. However he has not been taking the iron prescribed at last visit because this made him more nauseous. He has complaints about some distention in the right lower quadrant. Denies any issues with the incision site but states towards the end of the day feels more of a bulge lateral to the incision site on the right side of the abdomen. He called to make an appointment with Cardiology to follow-up on his run of AFib. They recommended that he stopped taking his metoprolol dose after 3 weeks which is about this time but he states they did not want him to come in for a formal appointment. Additionally he has lost about 48 lb since the surgery which has been good for him as he thought that he needed to lose some weight however when he went to the Coumadin clinic for his routine draw his INR was 5 so some changes have been made to his weight based dosing of Coumadin now taking 45 mg per week. He continues to go to PT but states he is not the most compliant as he should be. Finally he is concerned about going back to work given that he is having these issues with diarrhea and some episodes of incontinence, would like to get this more under control before he is comfortable going back to work [facility] Medical History Antiphospholipid syndrome (Unknown) Pyoderma gangrenosum Surgical History H/O right inguinal hernia repair Social History Household Members: Spouse Housing: House Do you presently have visiting nurse or other home services: No Comment: refusing alarms Patient Tobacco Use Status: Never used Tobacco Advance Directives Date on File: 08/19/25 service: No Physical Exam Vital Signs: Last Vital Signs BP 124/86 10/14/25 14:43 BMI result Body Mass Index 30.4 Const General: comfortable and no acute distress Orientation/consciousness: patient oriented x3 Neuro General: patient oriented x3 Assessment & Plan Assessment & Plan (1) S/P colon resection: Comment: hand assisted laparoscopic left colectomy, mobilization of splenic flexure, small-bowel resection, drainage of abscess 09/04/25 Code(s): Z90.49 - Acquired absence of other specified parts of digestive tract Category: Surgical Plan 65-year-old male s/p laparoscopic hand assisted left colectomy, mobilization of splenic flexure small-bowel resection, drainage of abscess on 09/04/[address] Gutierres returning to the office for one-month postop visit. Having some difficulty with nausea, difficulty passing bowel movements in the morning, frequent loose bowel movements in the afternoon. Has had a few episodes of incontinence, feeling like he can not go back to work yet due to this. He has been trying to increase dietary fiber, eating lots of oatmeal. He has tried a half dose of Imodium which has helped somewhat. We will check a C diff PCR, patient will return sample to the lab. If negative can use Imodium as needed. He has not been following recommendations with iron supplementation but we will try to do so going forward.. To note his H&H that was ordered at last visit improved to 10.5. He is also concerned about a bulge on the right side of the incision. On exam the incision site appears to be healing well. There was some asymmetry on the right side but I am unable to appreciate any hernia at this time. We can further work this up at a later date. Abdomen otherwise soft and benign. It does cause him some mild discomfort, with ambulation. He does also continue to feel deconditioned. Has been doing PT but states he has not been very diligent about doing his home exercises. Plans to focus on this in the upcoming weeks. Recommending that he continue without dietary recommendations increasing fiber, should also stick to small frequent meals which may improve his nausea. He can continue using Zofran as needed. We will also refill oxycodone today for pain control as needed. He will return in 2 weeks for follow up. Can return sooner with any questions or concerns Orders: Orders CDiff Gene PCR 10/14/25 R19.7 - Diarrhea, unspecified, Z90.49 - Acquired absence of other specified parts of digestive tract Medications: New oxycodone Partial Fill upon patient request. 5 mg PO Q6H PRN 14 tabs 0RF pain Coding Level of Care Code Est Pt Level 4 (52954) Diagnoses S/P colon resection Z90.49 Time Spent (min) 45
--- OUTSIDE RECORDS SUMMARY | 2025-10-14 19:34 | XMS_ITS | Encounter Summary ---
Author Organization [facility] Address [address] [employer] [facility] [address] [place] [address] Phone Care Team Providers Care Spring Winder Name Role Phone Jeremías Knox MD Primary Care Provid er Angel Doty MBBS Unavailable [phone] Kaylene Gutierres RN Unavailable [phone] Encounter Details Date Type Department Care Team (Late st Contact Info) Description 10/07/2025 Orders Only [facility] [address] [place] [address] [place] [address] Kaylene Gutierres, RN [address] [place] [address] [email or web address] Social History Tobacco Use Types Packs/Day Years [...] on filedocumented in this encounter Care Teams Spring Winder Relationship Specialty Start Date End Date Jeremías Knox MD [address] [place] [phone] PCP - General Pediatrics 05/09/22 Angel Doty MBBS [address] [place] [phone] [email or web address] Medical Oncology 02/27/24 Kaylene Gutierres RN [address] [place] [address] Registered Nurse 09/09/25 documented as of this encounter Additional Source Comments The information contained in this document represents components of the legal health record. It is not the complete legal health record.[facility]
--- OUTSIDE RECORDS SUMMARY | 2025-10-14 19:34 | XMS_ITS | Clinical Summary ---
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) use of anticoagulants 2024 Antiphospholipid syndrome [...] Encounters Date Type Department Care Team Description 10/12/2025 Telephone [facility] Anticoagulation [address] [address] Mariajose Irizarry, MYLA 10/07/2025 Orders Only [facility] Anticoagulation [address] [place] [address] Kaylene Gutierres, RN 10/07/2025 Telephone [facility] Anticoagulation [address] [place] [address] Kaylene Gutierres, RN INR Check 09/16/2025 Telephone [facility] Anticoagulation [address] [place] [address] Kaylene Gutierres, RN INR Check 09/14/2025 Telephone [facility]ticoagulation [address] [address] Kaylene Gutierres, RN 09/09/2025 Documentation [facility] Anticoagulation [address] [place] [address] Kaylene Gutierres, RN 09/03/2025 Telephone [facility] [place] [facility] at [address] [address] Angel Doty, EVELIN surgery question 08/28/2025 Telephone [facility] Anticoagulation [address] [address] Kaylene Gutierres RN Interruption In Anticoagulant Therapy 08/28/2025 Documentation [facility] [address] [place] [phone] Kaylene Gutierres RN 08/27/2025 10:11 AM EDT - 08/27/2025 11:59 PM EDT Hospital Encounter [facility] Phleb Main [address] [place] [address] Gallito Razo MD Discharge Disposition: Home or Self Care 08/27/2025 Documentation [facility] [address] [place] [address] Kaylene Gutierres RN INR Check 08/27/2025 Transcribe Orders [facility]le[facility] Main [address] [place] [address] Gallito Razo MD Perforated diverticulum of large intestine (Primary Dx) 08/25/2025 Documentation [facility] [address] [place] [address] Kaylene Gutierres RN 08/25/2025 Transcribe Orders [facility] Specimen Processing [address] [place] [address] Gallito Razo MD Diverticulitis of large intestine with perforation and abscess without bleeding (Primary Dx) 08/24/2025 2:47 PM EDT - 08/24/2025 11:59 PM EDT Hospital Encounter [facility] Phleb Main [address] [place] [address] Gallito Razo MD Discharge Disposition: Home or Self Care 08/24/2025 Telephone [facility] [address] [place] [address] Kaylene Gutierres RN INR Check; Supratherapeutic INR Greater Or Equal To 5 08/20/2025 11:53 AM EDT - 08/20/2025 11:59 PM EDT Hospital Encounter [facility] Phleb Main [address] [place] [address] Jeremías Knox MD Discharge Disposition: Home or Self Care 08/20/2025 Telephone [facility] [address] [place] [address] Kalyene Gutierres, RN INR Check (/) 08/18/2025 Documentation [facility] [address] [place] [address] Kaylene Gutierres RN 07/15/2025 9:25 AM EDT - 07/15/2025 11:59 PM EDT Hospital Encounter [facility] Phleb Main [address] [place] [address] Jeremías Knox MD Discharge Disposition: Home or Self Care 07/15/2025 Documentation [facility] [address] [place] [address] [place] [address] Kaylene Gutierres, YONNY INR Check from Last 3 Months Immunizations Immunization Administration [...] VACCINE (#1) 2025 07/26/2017, 2015 COVID-19 VACCINE ( season) 2025 11/04/2020, 10/18/2020 CREATININE LEVEL 09/16/2026 [...] Priority Date/Time Associated Diagnosis Comments PT-INR Routine 10/12/2025 10:30 AM EST Acute venous embolism and thrombosis of deep vessels of proximal lower extremity [I82.4Y9] Chronic anticoagulation Antiphospholipid syndrome CBC Routine 10/07/2025 10:56 AM EST Acute venous embolism and thrombosis of deep vessels of proximal lower extremity [I82.4Y9] Chronic anticoagulation Antiphospholipid syndrome PT-INR Today 10/07/2025 10:46 AM EST Acute venous embolism and thrombosis of deep vessels of proximal lower extremity [I82.4Y9] Chronic anticoagulation Antiphospholipid syndrome BASIC METABOLIC PANEL (BMP) Routine 09/16/2025 9:07 [...] to Health Maintenance Results * (ABNORMAL) PT-INR (10/12/2025 10:30 AM EST) Only the most recent of7 resultswithin the time period is included. PT 22.8(H) 10.0 - 13.0 sec 10/12/2025 10:58 AM EST [facility] INR 1.8(H) 0.9 - 1.1 10/12/2025 10:58 AM EST [facility] Comment:Therapeutic Range 2. 0 - 3.5 Blood (Blood) Venipuncture / Unknown 10/12/2025 10:30 AM EST 10/12/2025 10:35 AM EST us Jeremías nKox MD LAB BLOOD BKR ORDERA BLES Final Result [address] [address] * (ABNORMAL) CBC (10/07/2025 10:56 AM EST) WBC 8.37 4.00 - 11.00 K/uL 10/07/2025 11:09 AM [facility] RBC 4.45(L) 4.50 - 5.90 M/uL 10/07/2025 11:09 AM [facility] Hemoglobin 12.3(L) 13.5 - 17.5 g/dL 10/07/2025 11:09 AM [facility] Hematocrit 37.3(L) 41.0 - 53.0 % 10/07/2025 11:09 AM [facility] MCV 83.8 80.0 - 100.0 fL 10/07/2025 11:09 AM [facility] MCH 27.6 27.0 - 31.0 pg 10/07/2025 11:09 AM [facility] MCHC 33.0 32.0 - 36.0 g/dL 10/07/2025 11:09 AM [facility] PLT 123(L) 150 - 450 K/uL 10/07/2025 11:09 AM [facility] MPV 10.0 8.4 - 12.0 fL 10/07/2025 11:09 AM [facility] RDW-CV 15.7(H) 11.5 - 14.5 % 10/07/2025 11:09 AM [facility] Absolute NRBC 0.00 <=0.00 K cells/uL 10/07/2025 11:09 AM [facility] NRBC 0.0 <=0.0 /100 WBCs 10/07/2025 11:09 AM [facility] Blood (Blood) Venipuncture / Unknown 10/07/2025 10:56 AM EST 10/07/2025 11:05 AM EST us Gallito Razo MD LAB BLOOD BKR ORDERABLES Mandy l Result [facility] [address] [place] [address] * (ABNORMAL) Basic Metabolic Panel (BMP) (09/16/2025 9:07 AM EST) Only the most recent of2 resultswithin the time period is included. Sodium 134(L) 136 - 145 mmol/L 09/16/2025 9:52 AM [facility] Potassium 4.5 3.4 - 5.1 mmol/L 09/16/2025 9:52 AM [facility] Chloride 99 98 - 107 mmol/L 09/16/2025 9:52 AM [facility] CO2 24 20 - 31 mmol/L 09/16/2025 9:52 AM [facility] Anion Gap 11 3 - 17 mmol/L 09/16/2025 9:52 AM [facility] BUN 32(H) 6 - 23 mg/dL 09/16/2025 9:52 AM [facility] Creatinine 1.80(H) 0.60 - 1.30 mg/dL 09/16/2025 9:52 AM [facility] eGFR 42(L) >59 mL/min/1.7 3m2 09/16/2025 9:52 AM [facility] Comment:Estimated glomerular filtration rate calculated using the CKD-EPI refit equation. Glucose 117(H) 70 - 99 mg/dL 09/16/2025 9:52 AM [facility] Calcium 8.4(L) 8.5 - 10.5 mg/dL 09/16/2025 9:52 AM [facility] Blood (Blood) Venipuncture / Unknown 09/16/2025 9:07 AM EST 09/16/2025 9:12 AM EST us Gallito Razo MD LAB BLOOD BKR ORDERABLES Mandy pham Result [facility] [address] [place] [address] * (ABNORMAL) CBC and differential (08/27/2025 10:37 AM EDT) Only the most recent of2 resultswithin the time period is included. WBC 14.65(H) 4.00 - 11.00 K/uL [facility] RBC 4.35(L) 4.50 - 5.90 M/uL [facility] HGB 12.9(L) 13.5 - 17.5 g/dL [facility] HCT 38.2(L) 41.0 - 53.0 % [facility] PLT 129(L) 150 - 450 K/uL [facility] MCV 87.8 80.0 - 100.0 fL [facility] MCH 29.7 27.0 - 31.0 pg [facility] MCHC 33.8 32.0 - 36.0 g/dL [facility] RDW 14.2 11.5 - 14.5 % [facility] MPV 8.6 8.4 - 12.0 fL [facility] NRBC 0.00 0.00 /100 WBCs [facility] ABSOLUTE NRBC 0.00 0.00 K/uL [facility] DIFF METHOD Manual [facility] TOTAL CELLS COUNTED 100 [facility] NEUTS 76.0 48.0 - 76.0 % [facility] BANDS 1.0 0 - 10 % [facility] LYMPHS 13.0(L) 18.0 - 41.0 % [facility] MONOS 6.0 4.0 - 11.0 % [facility] EOS 1.0 0.0 - 5.0 % [facility] BASOS 1.0 0.0 - 1.5 % [facility] MYELOS 1.0(H) 0 % [facility] METAS 1.0(H) 0 % [facility] ABSOLUTE NEUTS 11.28(H) 1.92 - 7.60 K/uL [facility] ABSOLUTE LYMPHS 1.90 0.72 - 4.10 K/uL [facility] ABSOLUTE MONOS 0.88 0.16 - 1.10 K/uL [facility] ABSOLUTE EOS 0.15 0.00 - 0.50 K/uL [facility] ABSOLUTE BASOS 0.15 0.00 - 0.15 K/uL [facility] ABSOLUTE MYELOS 0.15 K/uL [facility] ABSOLUTE METAS 0.15 K/uL [facility] Blood 08/27/2025 10:3 7 AM EDT 08/27/2025 10:44 AM EDT us Gallito Razo MD LAB BLOOD BKR ORDERABLES Mandy l Result Performing Organization Address [facility] Co de Phone Number [address] [address] * (ABNORMAL) Lipid panel (09/15/2024 7:36 AM EST) HDL 45 mg/dL [facility] Comment: Interpretation <40 mg/dL: Low HDL cholesterol (major risk factor for CHD) Greater than or equal to 60 mg/dL: High HDL cholesterol ( negative risk factor for CHD) HDL - cholesterol is affected by a number of factors, e.g. smoking, excerise, hormones, sex and age. CHOLESTEROL 252(H) 0 - 240 mg/dL [facility] TRIGLYCERIDES 260(H) 30 - 160 mg/dL [facility] LDL 155(H) 50 - 129 mg/dL [facility] Comment: LDL levels in terms of risk for coronary heart disease: <100 mg/dL: Optimal 100-129 mg/dL: Near or above optimal 130-159 mg/dL: Borderline high 160-189 mg/dL: High >190 mg/dL: Very High CARDIAC RISK RATIO 5.6(H) 3.4 - 5.0 C [facility] Blood 09/15/2024 7:36 AM EST 09/15/2024 7:40 AM EST us Jeremías Knox MD LAB BLOOD BKR ORDERA BLES Final Result Performing Organization Address [facility] Co de Phone Number [address] [address] * ENDOSCOPY, COLON (03/02/2022 2:18 PM EDT) Narrative Transcriptions Kari Argueta MD - 03/02/2022 2:18 PM EDT Patient Name: Alejandro Correa Attending MD:: KARI ARGUETA MD Procedure Date: 03/02/2022 2:18 PM Date of : 1960 Age: 61 Admit Type: Outpatient Gender: Male Room: Endo 05 Referring MD: Mick Knox Exam Type: [...] monitored continuously. The Olympus adult variable colonoscope [id number] #3 was introduced through the anus and [...] 2:18 PM Procedure Code(s): --- Professional --- 89301, Colonoscopy, flexible; with biopsy, single or multiple --- Technical --- 58165, Colonoscopy, flexible; with biopsy, single or multiple Diagnosis Code(s): --- Professional --- R19.7, Diarrhea, unspecified R63.4, Abnormal weight loss K57.30, Diverticulosis of large intestine without perforation or abscess without bleeding --- Technical --- R19.7, Diarrhea, unspecified R63.4, Abnormal weight loss K57.30, Diverticulosis of large intestine without perforation or abscess without bleeding CPT copyright 2020 [employer]. All rights reserved. The codes documented in this report are preliminary and upon mix technician reviewmay be revised to meet current compliance requirements. Procedure Date: 03/02/2022 2:18:[address] [place] [address] Mick Knox MD GI PROCEDURE ORDERAB LES Final Result from Last 3 Months or Most Recently Relevant to Health Maintenance Insurance Advance Directives For more information, please contact: [phone] (9AM - 5PM [place], Sunday-Sunday) * Full Code (Latest Code Status on File) Date Activated Date Inactivated Comments 07/12/2023 7:52 PM Question Answer Comments Code Status Confirmed With: Patient Care Teams Garnett Feeder Relationship Specialty Start Date End Date Jeremías Knox MD [address] [phone] PCP - General Pediatrics 05/09/22 Angel Doty MBBS [address] [phone] [email or web address] Medical Oncology 02/27/24 Kaylene Gutierres, RN [address] [place] [address] [email or web address] Registered Nurse 09/09/25 Additional Source Comments The information contained in this document represents components of the legal health record. It is not the complete legal health record.[facility]
--- OUTSIDE RECORDS SUMMARY | 2025-10-14 19:34 | XMS_ITS | Encounter Summary ---
Author Organization [facility] Address [address] [facility] [address] [place] [address] Phone Care Team Providers Care Manager Commercial Real Estate Name Role Phone Jeremías Knox MD Primary Care Provid er Jeremías Knox MD Primary Care Provid er Angel Doty MBBS Unavailable [phone] Kaylene Gutierres RN Unavailable [phone] Encounter Details Date Type Department Care Team (Late st Contact Info) Description 05/03/2022 Procedure Pass [facility], [address] [address] Social History Tobacco Use Types Packs/Day Years [...] filedocumented in this encounter Care Teams Manager Commercial Real Estate Relationship Specialty Start Date End Date Jeremías Knox MD [address] [facility] [address] [place] [phone] PCP - General Pediatrics 11/1/17 7/11/22 Jeremías Knox MD [address] [phone] PCP - General Pediatrics 05/09/22 Angel Doty MBBS [address] [phone] [email or web address] Medical Oncology 02/27/24 Kaylene Gutierres, RN [address] [place] [address] [email or web address] Registered Nurse 09/09/25 documented as of this encounter Additional Source Comments The information contained in this document represents components of the legal health record. It is not the complete legal health record.[facility]
--- OUTSIDE RECORDS SUMMARY | 2025-10-14 19:34 | XMS_ITS | Encounter Summary ---
Author Organization [facility] Address [address] [employer] [facility] [address] [place] [address] Phone Care Team Providers Care Gauge And Weigh Machine Adjuster Name Role Phone Jeremías Knox MD Primary Care Provid er Angel Doty MBBS Unavailable [phone] Kaylene Gutierres RN Unavailable [phone] Encounter Details Date Type Department Care Team (Late st Contact Info) Description 10/12/2025 Telephone [facility] [address] [place] [address] Mariajose Irizarry, [address] [address] [email or web address] Social History Tobacco Use Types Packs/Day Years [...] AM EDT documented as of this encounter Patient Instructions * Patient Instructions* Mariajose Irizarry, ENGINEERING CLERK - 10/12/2025 12:46 PM EST Images from the original note were not included. Important INR Result and Next Steps Dear Alejandro Correa, We have received your recent INR test results, which indicate a lower than expected level. Your INRis INR Date Value Ref Range Status 10/12/2025 1.8 (H) 0.9 - 1.1 Final Comment: Therapeutic Range 2.0 - 3.5 . Your INR goal is 2.0-3.0 This means your blood is thicker than desired, and we need to adjust your medication. Dosing Instructions: Warfarin: 10 mg every Mon, Miriam; 5 mg all other days. Next INR in 2 weeks. We???d like to emphasize the importance of keeping your INR within the target range to reduce the risk of blood clots. When the INR is too low, the blood is more prone to clotting, which can lead to serious health conditions. Below are some donato points on why maintaining your target INR is essential: Blood Clots: Low INR levels can increase the risk of developing blood clots in the veins and arteries. Pulmonary Embolism (PE): Clots that form in the legs or other areas can travel to the lungs, causing a potentially life-threatening condition known as a pulmonary embolism. Stroke: If a clot reaches the brain, it can block blood flow, leading to a stroke, which can cause long-term disability or other serious complications. Thromboembolism: Clots can travel through the bloodstream and block blood vessels in critical areas, posing significant health risks. Heart Attack (GA): In certain cases, blood clots in the arteries can lead to a myocardial infarction, or heart attack. Below are situations where seeking immediate medical attention is necessary: Swelling or pain in the legs, especially if it occurs in only one leg (this could be a symptom of deep vein thrombosis). Shortness of breath, chest pain, or a fast heart rate (these may indicate a pulmonary embolism). Sudden or severe headache, difficulty speaking, weakness, or numbness on one side of the body (these are signs of a stroke). If you have any questions or concerns, feel free to reach out. Safety Reminders: Please reply or call our office if you: Have not been taking warfarin as instructed. Start, stop or change how you taking any other medications (including prescription or over the counter). Have any changes in your health including illness, urgent doctor's appointments, visits to the hospital. Have any changes in your daily routines such as diet and how much alcohol you drink. Have any major medical or dental procedures scheduled that require a change in how you take your warfarin. Thank you! Mariajose Irizarry CNP PT/INR is managed by [facility] [place] ([facility]) Office hours: Sunday through Sunday, 8a-430p. Email: [facility] ([facility]) Office hours: Sunday through Sun, 830a-5p Email: [facility] [place]/[facility] ([place]) Office hours: Sunday through 8-4 Email For critical PT/INR results after hours please contact the after hours service for Jeremías Knox MD September 2025 Details Sun Sun Sat 1 2 3 4 5 6 7 8 9 10 11 12 13 14 15 1.8 10 mg See details 16 5 mg 17 5 mg 18 10 mg 19 5 mg 20 5 mg 21 5 mg 22 10 mg 23 5 mg 24 5 mg 25 10 mg 26 5 mg 27 5 mg 28 5 mg 29 10 mg 30 31 Date Details 10/12 This INR check INR: 1.8 Therapeutic Range 2.0 - 3.5 Date of next INR: 10/26/2025 How to take your warfarin dose To take: 5 mg Take 1 of the 5 mg tablets. To take: 10 mg Take 2 of the 5 mg tablets. documented in this encounter Progress Notes * Mariajose Irizarry CNP - 10/12/2025 12:23 PM EST INR is 1.8. Lab Results Component Value Date PTINR 1.8 (H) 10/12/2025 PTINR 4.9 (H) 10/07/2025 PTINR 2.6 (H) 09/16/2025 PTINR 1.9 (H) 08/27/2025 PTINR 5.5 (HH) 08/24/2025 Phone call with Alejandro Correa Hx reviewed. Warfarin: 10 mg every Mon, Miriam; 5 mg all other days. Next INR in 2 weeks. Detailed findings, dosing and next appt date [...] with any questions or concerns INR Source: LAB Mariajose Irizarry CNP documented in this encounter Plan of Treatment Not on file documented as of this encounter Visit Diagnoses Diagnosis director long term care (current) use of anticoagulants- Primary Long-term (current) use of anticoagulants Acute venous embolism and thrombosis of deep vessels of proximal lower extremity [I82.4Y9] Antiphospholipid syndrome Primary hypercoagulable state documented in this encounter Care Teams Gauge And Weigh Machine Adjuster Relationship Specialty Start Date End Date Jeremías Knox MD [address] [place] [phone] PCP - General Pediatrics 05/09/22 Anegl Doty MBBS [address] [phone] [email or web address] Medical Oncology 02/27/24 Kaylene Gutierres, RN [address] [place] [address] [email or web address] Registered Nurse 09/09/25 documented as of this encounter Additional Source Comments The information contained in this document represents components of the legal health record. It is not the complete legal health record.[facility]
--- OUTSIDE RECORDS SUMMARY | 2025-10-14 19:34 | XMS_ITS | Encounter Summary ---
Author Organization [facility] Address [address] [facility] [address] [place] [address] Phone Care Team Providers Care Pediatric Critical Care Nurse Name Role Phone Jeremías Knox MD Primary Care Provid er Jeremías Knox MD Primary Care Provid er Angel Doty MBBS Unavailable [phone] Kaylene Gutierres RN Unavailable [phone] Encounter Details Date Type Department Care Team (Late st Contact Info) Description 03/02/2022 Procedure Pass [facility] Endoscopy Admitting Dept Virtual Department [address] [place] [address] Social History Tobacco Use Types Packs/Day Years [...] on filedocumented in this encounter Care Teams Pediatric Critical Care Nurse Relationship Specialty Start Date End Date Jeremías Knox MD 35 [facility] [address] [place] [address] PCP - General Pediatrics 08/29/17 05/08/22 Jeremías Knox MD [address] [phone] PCP - General Pediatrics 05/09/22 Angel Doty MBBS [address] [phone] [email or web address] Medical Oncology 02/27/24 Kaylene Gutierres, RN [address] [place] [address] [email or web address] Registered Nurse 09/09/25 documented as of this encounter Additional Source Comments The information contained in this document represents components of the legal health record. It is not the complete legal health record.[facility]
--- OUTSIDE RECORDS SUMMARY | 2025-10-14 19:34 | XMS_ITS | Encounter Summary ---
Author Organization [facility] Address [address] [facility] [address] [place] [address] Phone Care Team Providers Care Moth Proofer Name Role Phone Jeremías Knox MD Primary Care Provid er Jeremías Knox MD Primary Care Provid er Angel Doty MBBS Unavailable [phone] Kaylene Gutierres RN Unavailable [phone] Encounter Details Date Type Department Care Team (Late st Contact Info) Description 12/29/2021 Procedure Pass [facility], Ct Scan - [address] [address] Social History Tobacco Use Types Packs/Day Years [...] on filedocumented in this encounter Care Teams Moth Proofer Relationship Specialty Start Date End Date Jeremías Knox MD 35 [facility] [address] [place] [address] PCP - General Pediatrics 08/29/17 05/08/22 Jeremías Knox MD [address] [phone] PCP - General Pediatrics 05/09/22 Angel Doty MBBS [address] [phone] [email or web address] Medical Oncology 02/27/24 Kaylene Gutierres, RN [address] [place] [address] [email or web address] Registered Nurse 09/09/25 documented as of this encounter Additional Source Comments The information contained in this document represents components of the legal health record. It is not the complete legal health record.[facility]
--- OUTSIDE RECORDS SUMMARY | 2025-10-14 19:34 | XMS_ITS | Encounter Summary ---
Author Organization [facility] Address [address] [facility] [address] [place] [address] Phone Care Team Providers Care Chemical Dependency Professional Name Role Phone Jeremías Knox MD Primary Care Provid er Jeremías Knox MD Primary Care Provid er Angel Doty MBBS Unavailable [phone] Kaylene Gutierres RN Unavailable [phone] Reason for Referral * MRI/CAT Scan - Closed Specialty Diagnoses / Procedures Referred By Emeka ramesh Referred To Contact Radiology Diagnoses Benign neoplasm of cerebral meninges Procedures MRI Brain CHG MRI BRAIN CHG MRI BRAIN COMBO Jeremías Knox MD Phone: tel: fax: Referral ID Status Reason Start Date Expiration Date Visits Re quested Visits Authorized [id number] Closed 05/03/2022 07/02/2022 1 1 Encounter Details Date Type Department Care Team (Latest Contact Info) Description 05/03/2022 Transcribe Orders Virtual Department [address] [place] [address] Jeremías Knox MD [address] [phone] Benign neoplasm of cerebral meninges [...] meninges documented in this encounter Care Teams Chemical Dependency Professional Relationship Specialty Start Date End Date Jeremías Knox MD [address] [place] [phone] PCP - General Pediatrics 08/29/17 05/08/22 Jeremías Knox MD [address] [phone] PCP - General Pediatrics 05/09/22 Angel Doty MBBS [address] [phone] [email or web address] Medical Oncology 02/27/24 Kaylene Gutierres, RN [address] [place] [address] [email or web address] Registered Nurse 09/09/25 documented as of this encounter Additional Source Comments The information contained in this document represents components of the legal health record. It is not the complete legal health record.[facility]
--- OUTSIDE RECORDS SUMMARY | 2025-10-14 19:34 | XMS_ITS | Encounter Summary ---
Author Organization [facility] Address [address] [facility] [address] [place] [address] Phone Care Team Providers Care Mergers And Acquisitions Consultant Name Role Phone Jeremías Knox MD Primary Care Provid er Jeremías Knox MD Primary Care Provid er Angel Doty MBBS Unavailable [phone] Kaylene Gutierres RN Unavailable [phone] Reason for Referral * MRI/CAT Scan - Closed Specialty Diagnoses / Procedures Referred By Emeka ramesh Referred To Contact Radiology Diagnoses Visual hallucinations Procedures CT Head CHG CT SCAN HEAD COMBO Alden Segundo DO Phone: tel: fax: [email or web address] Referral ID Status Reason Start Date Expiration Date Visits Re quested Visits Authorized [id number] Closed 12/29/2021 06/11/2022 1 1 Encounter Details Date Type Department Care Team (Latest Contact Info) Description 12/29/2021 Transcribe Orders Virtual Department [address] [place] [address] Alden Segundo DO [address] [place] [address] [email or web address] Visual hallucinations (Primary [...] represent an incidental meningioma. Alden Segundo DO [facility] HEAD/NECK Final Result documented in this encounter Visit Diagnoses Diagnosis Visual hallucinations- Primary Psychophysical visual disturbances Visual hallucinations Psychophysical visual disturbances documented in this encounter Care Teams Mergers And Acquisitions Consultant Relationship Specialty Start Date End Date Jeremías Knox MD [address] [place] [phone] PCP - General Pediatrics 08/29/17 05/08/22 Jeremías Knox MD [address] [place] [phone] PCP - General Pediatrics 05/09/22 Angel Doty MBBS [address] [place] [phone] [email or web address] Medical Oncology 02/27/24 Kaylene Gutierres, RN [address] [place] [address] Registered Nurse 09/09/25 documented as of this encounter Additional Source Comments The information contained in this document represents components of the legal health record. It is not the complete legal health record.[facility]
--- OUTSIDE RECORDS SUMMARY | 2025-10-14 19:35 | XMS_ITS | Encounter Summary ---
Author Organization [facility] Address [address] [employer] [facility] [address] [place] [address] Phone Care Team Providers Care Oracle Soa Architect Name Role Phone Jeremías Knox MD Primary Care Provid er Angel Doty MBBS Unavailable [phone] Kaylene Gutierres RN Unavailable [phone] Encounter Details Date Type Department Care Team (Late st Contact Info) Description 07/12/2023 Procedure Pass [facility], Ct Scan - [facility] [address] [place] [address] Social History Tobacco Use Types Packs/Day Years [...] 3:04 PM EDT Analy Barksdale RN * [place] Suicide Severity Rating Scale (Screener/Recent Self-Report) Question [...] on filedocumented in this encounter Care Teams Oracle Soa Architect Relationship Specialty Start Date End Date Jeremías Knox MD [address] [phone] PCP - General Pediatrics 05/09/22 Angel Doty MBBS [address] [phone] [email or web address] Medical Oncology 02/27/24 Kaylene Gutierres RN 30 [place] [address] Registered Nurse 11/12/25 documented as of this encounter Additional Source Comments The information contained in this document represents components of the legal health record. It is not the complete legal health record.[facility]
--- OUTSIDE RECORDS SUMMARY | 2025-10-14 19:35 | XMS_ITS | Encounter Summary ---
Author Organization [facility] Address [address] [facility] [address] [place] [address] Phone Care Team Providers Care Cafeteria Manager Name Role Phone Jeremías Knox MD Primary Care Provid er Jeremías Knox MD Primary Care Provid er Angel Doty MBBS Unavailable [phone] Kaylene Gutierres RN Unavailable [phone] Reason for Referral * Consultation (Elective) - Closed Specialty Diagnoses / Procedures Referred By Contreji t Referred To Contact Diagnoses Deep vein thrombosis (DVT) of non-extremity vein, unspecified chronicity Jeremías Knox MD Phone: tel: fax: [facility] [address] [place] [address] Phone: tel: Referral ID Status Reason Start Date Expiration Date Visits Re quested Visits Authorized [id number] Closed 04/29/2021 04/29/2022 1 1 Encounter Details Date Type Department Care Team (Latest Contact Info) Description 04/29/2021 Transcribe Orders [facility] [address] [place] [address] Jeremías Knox MD [address] [phone] Deep vein thrombosis (DVT) of [...] Associated Diagnoses Order Schedule Ambulatory referral to [facility] Anticoagulation Clinic Outpatient Referral Routine Deep vein thrombosis (DVT) of non-extremity vein, unspecified chronicity Ordered: 04/29/2021 documented as of this encounter Visit Diagnoses Diagnosis Deep vein thrombosis (DVT) of non-extremity vein, unspecified chronicity- Primary documented in this encounter Care Teams Cafeteria Manager Relationship Specialty Start Date End Date Jeremías Knox MD [address] [place] [phone] PCP - General Pediatrics 08/29/17 05/08/22 Jeremías Knox MD [address] [place] [phone] PCP - General Pediatrics 05/09/22 Angel Doty MBBS [address] [place] [phone] [email or web address] Medical Oncology 02/27/24 Kaylene Gutierres, RN [address] [place] [address] Registered Nurse 09/09/25 documented as of this encounter Additional Source Comments The information contained in this document represents components of the legal health record. It is not the complete legal health record.[facility]
--- OUTSIDE RECORDS SUMMARY | 2025-10-14 19:35 | XMS_ITS | Encounter Summary ---
Author Organization [facility] Address [address] [facility] [address] [place] [address] Phone Care Team Providers Care Fruit Harvest Worker Name Role Phone Jeremías Knox MD Primary Care Provid er Jeremías Knox MD Primary Care Provid er Angel Doty MBBS Unavailable [phone] Kaylene Gutierres RN Unavailable [phone] Encounter Details Date Type Department Care Team (Latest Contact Info) Description 12/27/2017 Transcribe Orders [facility] Phleb Main [address] [place] [address] Jeremías Knox MD [address] [phone] Essential hypertension, benign (Primary Dx) [...] EST) PSA 1.17 0 - 4.00 ng/mL [facility] Blood 12/27/2017 9:10 AM EST 12/27/2017 9:16 AM EST Jeremías Knox MD LAB BLOOD BKR ORDERA BLES Final Result Performing Organization Address [facility] Co de Phone Number [address] [address] * (ABNORMAL) CBC (12/27/2017 9:05 AM EST) WBC 4.12 3.40 - 11.20 K/uL [facility] RBC 5.72(H) 4.50 - 5.50 M/uL [facility] HGB 18.0(H) 13.0 - 17.0 g/dL [facility] HCT 51.8(H) 40.0 - 51.0 % [facility] PLT 171 130 - 400 K/uL [facility] MCV 90.6 79.0 - 98.0 fL [facility] MCH 31.5 27.0 - 34.8 pg [facility] MCHC 34.7 31.5 - 36.0 g/dL [facility] RDW 12.6 10.8 - 14.6 % [facility] MPV 9.7 9.4 - 12.4 fl [facility] NRBC 0.00 /100 WBCs [facility] ABSOLUTE NRBC 0.00 K/uL [facility] Blood 12/27/2017 9:05 AM EST 12/27/2017 9:17 AM EST Jeremías Knox MD LAB BLOOD BKR ORDERA BLES Final Result [address] [address] * (ABNORMAL) Lipid panel (12/27/2017 9:05 AM EST) HDL 53 mg/dL [facility] Comment: Interpretation: Risk Level Males Decreased >45 mg/dL Average 40-45 mg/dL Increased <40 mg/dL CHOLESTEROL 287(H) 0 - 240 mg/dL [facility] TRIGLYCERIDES 165(H) 30 - 160 mg/dL [facility] LDL 201(H) 50 - 129 mg/dL [facility] Comment: LDL levels in terms of risk for coronary heart disease: <100 mg/dL: Optimal 100-129 mg/dL: Near or above optimal 130-159 mg/dL: Borderline high 160-189 mg/dL: High >190 mg/dL: Very High CARDIAC RISK RATIO 5.4(H) 3.4 - 5.0 C [facility] Blood 12/27/2017 9:05 AM EST 12/27/2017 9:17 AM EST Jeremías Knox MD LAB BLOOD BKR ORDERA BLES Final Result Performing Organization Address City/[facility]/ZIP Co de Phone Number [address] [address] * (ABNORMAL) Basic metabolic panel (12/27/2017 9:05 AM EST) SODIUM 136 133 - 146 mmol/L [facility] CHLORIDE 96 96 - 108 mmol/L [facility] POTASSIUM 4.1 3.3 - 5.1 mmol/L [facility] CO2 28 21 - 35 mmol/L [facility] BUN 26(H) 6 - 19 mg/dL [facility] CREATININE 0.90 0.5 - 1.5 mg/dL [facility] GLUCOSE 93 70 - 99 mg/dL [facility] CALCIUM 9.6 8.4 - 10.3 mg/dL [facility] EGFR >60 >60 mL/min/1.7 3m2 [facility] Comment:Abnormal if <60. If patient is -Czech, multiply the result by 1.21. ANION GAP 16 10 - 20 mmol/L [facility] Blood 12/27/2017 9:05 AM EST 12/27/2017 9:17 AM EST Jeremías Knox MD LAB BLOOD BKR ORDERA BLES Final Result Performing Organization Address City/[facility]/ZIP Co de Phone Number [address] [address] documented in this encounter Visit Diagnoses Diagnosis Essential hypertension, benign- Primary documented in this encounter Additional Health Concerns Infection Onset Date Last Indicated Resolved Time CoV-Exposed Comment:Recent close contact 05/27/2020 05/27/2020 06/10/2020 1:27 AM EDT documented as of this encounter Care Teams Fruit Harvest Worker Relationship Specialty Start Date End Date Jeremías Knox MD [address] [phone] PCP - General Pediatrics 08/29/17 05/08/22 Jeremías Knox MD [address] [phone] PCP - General Pediatrics 05/09/22 Angel Doty MBBS [address] [place] [phone] [email or web address] Medical Oncology 02/27/24 Kaylene Gutierres, RN [address] [place] [address] Registered Nurse 09/09/25 documented as of this encounter Additional Source Comments The information contained in this document represents components of the legal health record. It is not the complete legal health record.[facility]
--- OUTSIDE RECORDS SUMMARY | 2025-10-14 19:35 | XMS_ITS | Encounter Summary ---
Author Organization [facility] Address [address] [facility] [address] [place] [address] Phone Care Team Providers Care Branch Sales And Service Representative Name Role Phone Jeremías Knox MD Primary Care Provid er Angel Doty MBBS Unavailable [phone] Kaylene Gutierres RN Unavailable [phone] Reason for Referral * MRI/CAT Scan - Closed Specialty Diagnoses / Procedures Referred By Contac t Referred To Contact Radiology Diagnoses Benign neoplasm of cerebral meninges Procedures MRI Brain CHG MRI BRAIN COMBO System, Provider Not In, [facility] [address] [address] Referral ID Status Reason Start Date Expiration Date Visits Re quested Visits Authorized [id number] Closed 08/20/2024 10/18/2024 1 1 Encounter Details Date Type Department Care Team (Late st Contact Info) Description 08/20/2024 Transcribe Orders Virtual Department 30 [place] [address] System, Provider Not In, [facility] [address] [address] Benign neoplasm of cerebral meninges (Primary Dx) [...] clinician's provided indication for this examination in [facility]: Outside Radiology Order; benign cerebral meninges TECHNIQUE: [...] clinician's provided indication for this examination in [facility]:Outside Radiology Order; benign cerebral meninges TECHNIQUE: MRI [...] meninges documented in this encounter Care Teams Branch Sales And Service Representative Relationship Specialty Start Date End Date Jeremías Knox MD [address] [phone] PCP - General Pediatrics 05/09/22 Angel Doty MBBS [address] [place] [phone] [email or web address] Medical Oncology 02/27/24 Kaylene Gutierres, RN [address] [place] [address] Registered Nurse 09/09/25 documented as of this encounter Additional Source Comments The information contained in this document represents components of the legal health record. It is not the complete legal health record.[facility]
--- OUTSIDE RECORDS SUMMARY | 2025-10-14 19:35 | XMS_ITS | Encounter Summary ---
Author Organization [facility] Address [address] [facility] [address] [place] [address] Phone Care Team Providers Care Jig Worker Name Role Phone Jeremías Knox MD Primary Care Provid er Jeremías Knox MD Primary Care Provid er Angel Doty MBBS Unavailable [phone] Kaylene Gutierres RN Unavailable [phone] Reason for Referral * Consultation (Elective) - Closed Specialty Diagnoses / Procedures Referred By Contac t Referred To Contact Diagnoses Acute venous embolism and thrombosis of deep vessels of proximal lower extremity, unspecified laterality Jeremías Knox MD Phone: tel: fax: [facility] [address] [place] [address] Phone: tel: Referral ID Status Reason Start Date Expiration Date Visits Re quested Visits Authorized [id number] Closed 12/20/2017 12/20/2018 1 1 Encounter Details Date Type Department Care Team (Latest Contact Info) Description 12/20/2017 Transcribe Orders [facility] Department [address] [place] [address] Jeremías Knox MD 35 [facility] 1 [place] [phone] Acute venous embolism and thrombosis of deep [...] Associated Diagnoses Order Schedule Ambulatory referral to [facility] Anticoagulation Clinic Outpatient Referral Routine Acute [...] documented as of this encounter Care Teams Jig Worker Relationship Specialty Start Date End Date Jeremías Knox MD [address] [place] [phone] PCP - General Pediatrics 08/29/17 05/08/22 Jeremías Knox MD [address] [place] [phone] PCP - General Pediatrics 05/09/22 Angel Doty MBBS [address] [place] [phone] [email or web address] [email or web address].[facility] Medical Oncology 02/27/24 Kaylene Gutierres, RN [address] [place] [address] Registered Nurse 09/09/25 documented as of this encounter Additional Source Comments The information contained in this document represents components of the legal health record. It is not the complete legal health record.[facility]
--- OUTSIDE RECORDS SUMMARY | 2025-10-14 19:35 | XMS_ITS | Encounter Summary ---
Author Organization [facility] Address [address] [employer] [facility] [address] [place] [address] Phone Care Team Providers Care Autocad Draftsman Name Role Phone Jeremías Knox MD Primary Care Provid er Jeremías Knox MD Primary Care Provid er Angel Doty MBBS Unavailable [phone] Kaylene Gutierres RN Unavailable [phone] Encounter Details Date Type Department Care Team (Latest Contact Info) Description 09/27/2017 Transcribe Orders [facility] Main 30 [place], [place] [id number] Jeremías Knox MD [address] [phone] Deep phlebothrombosis, antepartum, with delivery [...] EST) PT 26.1(H) 10.2 - 12.9 sec [facility] INR 2.3(H) 0.9 - 1.1 [facility] Comment:Therapeutic range fo r oral Vitamin K antagonists: 2.0-3.5 Blood 09/27/2017 9:43 AM EST 09/27/2017 9:48 AM EST us Jeremías Knox MD LAB BLOOD BKR ORDERA BLES Final Result [address] [address] documented in this encounter Visit Diagnoses Diagnosis Deep phlebothrombosis, antepartum, with delivery- Primary documented in this encounter Additional Health Concerns Infection Onset Date Last Indicated Resolved Time CoV-Exposed Comment:Recent close contact 05/27/2020 05/27/2020 06/10/2020 1:27 AM EDT documented as of this encounter Care Teams Autocad Draftsman Relationship Specialty Start Date End Date Jeremías Knox MD [address] [place] [phone] PCP - General Pediatrics 08/29/17 05/08/22 Jeremías Knox MD [address] [place] [phone] PCP - General Pediatrics 05/09/22 Angel Doty MBBS [address] [place] [phone] [email or web address] Medical Oncology 02/27/24 Kaylene Gutierres, YONNY [address] [place] [address] Registered Nurse 09/09/25 documented as of this encounter Additional Source Comments The information contained in this document represents components of the legal health record. It is not the complete legal health record.[facility]
--- OUTSIDE RECORDS SUMMARY | 2025-10-14 19:35 | XMS_ITS | Encounter Summary ---
Author Organization [facility] Address [address] [facility] [address] [place] [address] Phone Care Team Providers Care Senior Project Engineer Name Role Phone Jeremías Knox MD Primary Care Provid er Angel Doty MBBS Unavailable [phone] Kaylene Gutierres RN Unavailable [phone] Encounter Details Date Type Department Care Team (Latest Contact Info) Description 06/13/2023 Transcribe Orders Virtual Department 30 [place] [address] Jeremías Knox MD 35 [facility] [address] [place] [phone] Benign neoplasm of cerebral meninges (Primary [...] Primary documented in this encounter Care Teams Senior Project Engineer Relationship Specialty Start Date End Date Jeremías Knox MD [address] [phone] PCP - General Pediatrics 05/09/22 Angel Doty MBBS [address] [phone] [email or web address] Medical Oncology 02/27/24 Kaylene Gutierres, RN [address] [place] [address] [email or web address] Registered Nurse 09/09/25 documented as of this encounter Additional Source Comments The information contained in this document represents components of the legal health record. It is not the complete legal health record.[facility]
--- OUTSIDE RECORDS SUMMARY | 2025-10-14 19:35 | XMS_ITS | Encounter Summary ---
Author Organization [facility] Address [address] [facility] [address] [place] [address] Phone Care Team Providers Care Rfid Specialist Name Role Phone Jeremías Knox MD Primary Care Provid er Jeremías Knox MD Primary Care Provid er Angel Doty MBBS Unavailable [phone] Kaylene Gutierres RN Unavailable [phone] Encounter Details Date Type Department Care Team (Latest Contact Info) Description 09/27/2017 Transcribe Orders [facility] Main 30 [place], [place] [id number] Jeremías Knox MD [address] [phone] Deep phlebothrombosis, antepartum, with delivery [...] documented as of this encounter Care Teams Rfid Specialist Relationship Specialty Start Date End Date Jeremías Knox MD [address] [place] [phone] PCP - General Pediatrics 08/29/17 05/08/22 Jeremías Knox MD [address] [place] [phone] PCP - General Pediatrics 05/09/22 Angel Doty MBBS [address] [place] [phone] [email or web address] Medical Oncology 02/27/24 Kaylene Gutierres, RN [address] [place] [address] [email or web address] Registered Nurse 09/09/25 documented as of this encounter Additional Source Comments The information contained in this document represents components of the legal health record. It is not the complete legal health record.[facility]
--- OUTSIDE RECORDS SUMMARY | 2025-10-14 19:35 | XMS_ITS | Encounter Summary ---
Author Organization [facility] Address [address] [facility] ([place], [place]) [address] [place] [address] Phone Care Team Providers Care Commercial Real Estate Agent Name Role Phone Jeremías Knox MD Primary Care Provid er Angel Doty MBBS Unavailable [phone] Kaylene Gutierres RN Unavailable [phone] Encounter Details Date Type Department Care Team (Late st Contact Info) Description 07/12/2023 Procedure Pass [facility], Ct Scan - [facility] 30 [place] [address] Social History Tobacco Use Types Packs/Day Years [...] 3:04 PM EDT Analy Barksdale RN * [place] Suicide Severity Rating Scale (Screener/Recent Self-Report) Question [...] on filedocumented in this encounter Care Teams Commercial Real Estate Agent Relationship Specialty Start Date End Date Jeremías Knox MD [address] [phone] PCP - General Pediatrics 05/09/22 Angel Doty MBBS [address] [phone] [email or web address] Medical Oncology 02/27/24 Kaylene Gutierres RN 30 [place] [address] Registered Nurse 11/12/25 documented as of this encounter Additional Source Comments The information contained in this document represents components of the legal health record. It is not the complete legal health record.[facility]
--- OUTSIDE RECORDS SUMMARY | 2025-10-14 19:35 | XMS_ITS | Encounter Summary ---
Author Organization [facility] Address [address] [facility] [address] [place] [address] Phone Care Team Providers Care Construction Project Administrator Name Role Phone Jeremías Knox MD Primary Care Provid er Angel Doty MBBS Unavailable [phone] Kaylene Gutierres RN Unavailable [phone] Encounter Details Date Type Department Care Team (Late st Contact Info) Description 07/12/2023 Procedure Pass [facility], [address] [address] Social History Tobacco Use Types Packs/Day Years [...] 3:04 PM EDT Analy Barksdale RN * [place] Suicide Severity Rating Scale (Screener/Recent Self-Report) Question [...] on filedocumented in this encounter Care Teams Construction Project Administrator Relationship Specialty Start Date End Date Jeremías Knox MD [address] [phone] PCP - General Pediatrics 05/09/22 Angel Doty MBBS [address] [phone] [email or web address] Medical Oncology 02/27/24 Kaylene Gutierres RN 30 [place] [address] Registered Nurse 09/09/25 documented as of this encounter Additional Source Comments The information contained in this document represents components of the legal health record. It is not the complete legal health record.[facility]
--- OUTSIDE RECORDS SUMMARY | 2025-10-14 19:35 | XMS_ITS | Encounter Summary ---
Author Organization [facility] Address 399 [facility] [address] [place] [address] Phone Care Team Providers Care Septic Tank Service Technician Name Role Phone Jeremías Knox MD Primary Care Provid er Jeremías Knox MD Primary Care Provid er Angel Doty MBBS Unavailable [phone] Kaylene Gutierres RN Unavailable [phone] Encounter Details Date Type Department Care Team (Latest Contact Info) Description 08/29/2017 Transcribe Orders [facility] Main 30 [place] [address] Jeremías Knox MD [address] [phone] Deep phlebothrombosis, antepartum, with delivery [...] EDT) PT 21.9(H) 10.2 - 12.9 sec [facility] INR 1.9(H) 0.9 - 1.1 [facility] Comment:Therapeutic range fo r oral Vitamin K antagonists: 2.0-3.5 Blood 08/29/2017 10:5 8 AM EDT 08/29/2017 3:58 PM EDT us Jeremías Knox MD LAB BLOOD BKR ORDERA BLES Edited Result - Final [address] [address] documented in this encounter Visit Diagnoses Diagnosis Deep phlebothrombosis, antepartum, with delivery- Primary documented in this encounter Additional Health Concerns Infection Onset Date Last Indicated Resolved Time CoV-Exposed Comment:Recent close contact 05/27/2020 05/27/2020 06/10/2020 1:27 AM EDT documented as of this encounter Care Teams Septic Tank Service Technician Relationship Specialty Start Date End Date Jeremías Knox MD [address] [place] [phone] PCP - General Pediatrics 08/29/17 05/08/22 Jeremías Knox MD [address] [place] [phone] PCP - General Pediatrics 05/09/22 Angel Doty MBBS [address] [place] [phone] [email or web address] Medical Oncology 02/27/24 Kaylene Gutierres RN 30 [place] [address] Registered Nurse 09/09/25 documented as of this encounter Additional Source Comments The information contained in this document represents components of the legal health record. It is not the complete legal health record.[facility]
--- OUTSIDE RECORDS SUMMARY | 2025-10-14 19:35 | XMS_ITS | Encounter Summary ---
Author Organization [facility] Address [address] [employer] [facility] [address] [place] [address] Phone Care Team Providers Care Director Inbound Sales Name Role Phone Jeremías Knox MD Primary Care Provid er Angel Doty MBBS Unavailable [phone] Kaylene Gutierres RN Unavailable [phone] Encounter Details Date Type Department Care Team (Late st Contact Info) Description 08/20/2024 Procedure Pass [facility], [address] [address] Social History Tobacco Use Types Packs/Day Years [...] on filedocumented in this encounter Care Teams Director Inbound Sales Relationship Specialty Start Date End Date Jeremías Knox MD [address] [place] [phone] PCP - General Pediatrics 05/09/22 Angel Doty MBBS [address] [place] [phone] [email or web address] Medical Oncology 02/27/24 Kaylene Gutierres, RN [address] [place] [address] Registered Nurse 09/09/25 documented as of this encounter Additional Source Comments The information contained in this document represents components of the legal health record. It is not the complete legal health record.[facility]
== END 2025-10-14 15:37 | disposition home or self-care (01) ==
LOC: HO.HGS 14:38
PROVIDERS: PCP Internal Medicine
DX: Z90.49 Acquired absence of other specified parts of digestive tract (principal)
CPT/HCPCS: 99024

== ENCOUNTER 2025-10-28 10:08 | Outpatient (AMB) | payer OTHER, SELFPAY ==
[2025-10-28 10:09] VITALS: BP 130/73; PULSE 69; BMI 32.4
--- NOTE | 2025-10-28 10:09 | A.OFFVIS_ITS ---
Vital Signs 10/28/25 10:09 Height 5 ft 8 in Weight 213 lb BMI 32.4 BP 130/73 Blood Pressure Location Rt brachial Position Sitting Pulse 69 Intake Visit Reasons: 2wk S/P sigmoid resection Intake Note: Patient here to follow up from last office visit on 10-14-2025. Status post sigmoid resection. Patient c/o: reports improvement with bowel movements since taking Imodium A-D. States has had some episodes of watery stools but nothing like it was. Would like to get clearance to go back to work. Blending Tank Tender Required: No Accompanied by: Spouse Allergies heparin Allergy (Severe, Verified 10/28/25 10:17) heparin induced thrombocytopenia bacitracin Allergy (Verified 10/28/25 10:17) Unknown celecoxib (From Celebrex) Allergy (Verified 10/28/25 10:17) Unknown cephalexin (From Keflex) Allergy (Verified 10/28/25 10:17) Unknown sulfacetamide (From Sulfamide) Allergy (Verified 10/28/25 10:17) Unknown sulfamethoxazole (From Bactrim) Allergy (Verified 10/28/25 10:17) Unknown trimethoprim (From Bactrim) Allergy (Verified 10/28/25 10:17) Unknown HPI HPI 2wk S/P sigmoid resection: Details: doing well, stools have been more formed, takes immodium as needed, has greatly reduced the amount of BMs throuhgout the day. DId not get Cdiff testing due to having more formed stools. He feels less bloated. Feeling stronger, continuing with PT. Diet improving, smaller meals but is maintaining his desired weight. [facility] Medical History Antiphospholipid syndrome (Unknown) Pyoderma gangrenosum Surgical History H/O right inguinal hernia repair Social History Household Members: Spouse Housing: House Do you presently have visiting nurse or other home services: No Comment: refusing alarms Patient Tobacco Use Status: Never used Tobacco Advance Directives Date on File: 08/19/25 service: No Physical Exam Vital Signs: Last Vital Signs Pulse 69 10/28/25 10:09 BP 130/73 10/28/25 10:09 BMI result Body Mass Index 32.4 Assessment & Plan Assessment & Plan (1) S/P colon resection: Comment: hand assisted laparoscopic left colectomy, mobilization of splenic flexure, small-bowel resection, drainage of abscess 09/04/25 Code(s): Z90.49 - Acquired absence of other specified parts of digestive tract Category: Surgical Plan 65-year-old male s/p laparoscopic hand assisted left colectomy, mobilization of splenic flexure small-bowel resection, drainage of abscess on 09/04/[address] Gutierres returning to the office for Follow-up. He reports his nausea is improving. Eating better but still small volume meals, gets full easily. Diarrhea improving with Imodium. Less frequent bowel movements. More formed stool. He did not have C diff PCR as he was having more formed stools. feeling more comfortable going back to work. patient sees GI at [facility], recommending that he follow up with GI for these ongoing GI issues. Activity increasing, doing well with PT. Denying significant abdominal pain. On exam abdomen is soft, benign. Incision site well healed, no concern for infection. Again there was some asymmetry on the right side of the incision that the patient states increases after meals however I am unable to appreciate any herniation with Valsalva while the patient is standing. We will continue to follow up on this down the road. He is okay to returned to work without restrictions. Recommended slowly increasing activity as he has been. He will follow up in about 2 months with us. Can return sooner with any questions or concerns. Coding Level of Care Code Global (20933) Diagnoses S/P colon resection Z90.49
--- OUTSIDE RECORDS SUMMARY | 2025-10-28 11:12 | XMS_ITS | Encounter Summary ---
Author Organization [facility] Address [address] [facility] [address] [place] [address] Phone Care Team Providers Care Analyst Competitive Intelligence Name Role Phone Jeremías Knox MD Primary Care Provid er Jeremías Knox MD Primary Care Provid er Angel Doty MBBS Unavailable [phone] Kaylene Gutierres RN Unavailable [phone] Encounter Details Date Type Department Care Team (Late st Contact Info) Description 03/02/2022 Procedure Pass [facility]oscopy Admitting Dept Virtual Department 30 [place] [address] Social History Tobacco Use Types Packs/Day Years [...] on filedocumented in this encounter Care Teams Analyst Competitive Intelligence Relationship Specialty Start Date End Date Jeremías Knox MD 35 [facility] [address] [place] [phone] PCP - General Pediatrics 08/29/17 05/08/22 Jeremías Knox MD [address] [phone] PCP - General Pediatrics 05/09/22 Angel Doty MBBS [address] [phone] [email or web address] Medical Oncology 02/27/24 Kaylene Gutierres, RN 30 [place] [address] [email or web address] Registered Nurse 09/09/25 documented as of this encounter Additional Source Comments The information contained in this document represents components of the legal health record. It is not the complete legal health record.[facility]
--- OUTSIDE RECORDS SUMMARY | 2025-10-28 11:13 | XMS_ITS | Encounter Summary ---
Author Organization [facility] Address [address] [employer] [facility] [address] [place] [address] Phone Care Team Providers Care Cash Applications Coordinator Name Role Phone Jeremías Knox MD Primary Care Provid er Jeremías Knox MD Primary Care Provid er Angel Doty MBBS Unavailable [phone] Kaylene Gutierres RN Unavailable [phone] Encounter Details Date Type Department Care Team (Latest Contact Info) Description 09/27/2017 Transcribe Orders [facility] Phle[facility] Main 30 [place], [place] [phone] Jeremías Knox MD [address] [phone] Deep phlebothrombosis, antepartum, with delivery [...] EST) PT 26.1(H) 10.2 - 12.9 sec [facility] INR 2.3(H) 0.9 - 1.1 [facility] Comment:Therapeutic range fo r oral Vitamin K antagonists: 2.0-3.5 Blood 09/27/2017 9:43 AM EST 09/27/2017 9:48 AM EST us Jeremías Knox MD LAB BLOOD BKR ORDERA BLES Final Result [address] [address] documented in this encounter Visit Diagnoses Diagnosis Deep phlebothrombosis, antepartum, with delivery- Primary documented in this encounter Additional Health Concerns Infection Onset Date Last Indicated Resolved Time CoV-Exposed Comment:Recent close contact 05/27/2020 05/27/2020 06/10/2020 1:27 AM EDT documented as of this encounter Care Teams Cash Applications Coordinator Relationship Specialty Start Date End Date Jeremías Knox MD [address] [place] [phone] PCP - General Pediatrics 08/29/17 05/08/22 Jeremías Knox MD [address] [place] [phone] PCP - General Pediatrics 05/09/22 Angel Doty MBBS [address] [place] [phone] [email or web address] Medical Oncology 02/27/24 Kaylene Gutierres, YONNY [address] [place] [address] Registered Nurse 09/09/25 documented as of this encounter Additional Source Comments The information contained in this document represents components of the legal health record. It is not the complete legal health record.[facility]
--- OUTSIDE RECORDS SUMMARY | 2025-10-28 11:13 | XMS_ITS | Encounter Summary ---
Author Organization [facility] Address [address] [facility] [address] [place] [address] Phone Care Team Providers Care Lead Accountant Name Role Phone Jeremías Knox MD Primary Care Provid er Jeremías Knox MD Primary Care Provid er Angel Doty MBBS Unavailable [phone] Kaylene Gutierres RN Unavailable [phone] Reason for Referral * MRI/CAT Scan - Closed Specialty Diagnoses / Procedures Referred By Emeka ramesh Referred To Contact Radiology Diagnoses Visual hallucinations Procedures CT Head CHG CT SCAN HEAD COMBO Alden Segundo DO Phone: tel: fax: [email or web address] Referral ID Status Reason Start Date Expiration Date Visits Re quested Visits Authorized [id number] Closed 12/29/2021 06/11/2022 1 1 Encounter Details Date Type Department Care Team (Latest Contact Info) Description 12/29/2021 Transcribe Orders Virtual Department 30 [place] [address] Alden Segundo DO [address] [place] [address] [email or web address] Visual hallucinations (Primary Dx) Social History [...] represent an incidental meningioma. Alden Segundo DO [facility] HEAD/NECK Final Result documented in this encounter Visit Diagnoses Diagnosis Visual hallucinations- Primary Psychophysical visual disturbances Visual hallucinations Psychophysical visual disturbances documented in this encounter Care Teams Lead Accountant Relationship Specialty Start Date End Date Jeremías Knox MD [address] [place] [phone] PCP - General Pediatrics 08/29/17 05/08/22 Jeremías Knox MD [address] [place] [phone] PCP - General Pediatrics 05/09/22 Angel Doty MBBS [address] [place] [address] [phone] [email or web address] Medical Oncology 02/27/24 Kaylene Gutierres, RN 30 [place] [address] Registered Nurse 09/09/25 documented as of this encounter Additional Source Comments The information contained in this document represents components of the legal health record. It is not the complete legal health record.[facility]
--- OUTSIDE RECORDS SUMMARY | 2025-10-28 11:13 | XMS_ITS | Encounter Summary ---
Author Organization [facility] Address [address] [facility] [address] [place] [address] Phone Care Team Providers Care Sustainability Manager Name Role Phone Jeremías Knox MD Primary Care Provid er Jeremías Knox MD Primary Care Provid er Angel Doty MBBS Unavailable [phone] Kaylene Gutierres RN Unavailable [phone] Reason for Referral * Consultation (Elective) - Closed Specialty Diagnoses / Procedures Referred By Contac t Referred To Contact Diagnoses Acute venous embolism and thrombosis of deep vessels of proximal lower extremity, unspecified laterality Jeremías Knox MD Phone: tel: fax: [facility] [address] [place] [address] Phone: tel: Referral ID Status Reason Start Date Expiration Date Visits Re quested Visits Authorized [id number] Closed 12/20/2017 12/20/2018 1 1 Encounter Details Date Type Department Care Team (Latest Contact Info) Description 12/20/2017 Transcribe Orders [facility] Department [address] [place] [address] Jeremías Knox MD 35 [facility] 1 [place] [phone] Acute venous embolism and thrombosis of deep [...] Associated Diagnoses Order Schedule Ambulatory referral to [facility] Anticoagulation Clinic Outpatient Referral Routine Acute [...] documented as of this encounter Care Teams Sustainability Manager Relationship Specialty Start Date End Date Jeremías Knox MD [address] [place] [phone] PCP - General Pediatrics 08/29/17 05/08/22 Jeremías Knox MD [address] [place] [phone] PCP - General Pediatrics 05/09/22 Angel Doty MBBS [address] [place] [phone] [email or web address] Medical Oncology 02/27/24 Kaylene Gutierres, RN [address] [place] [address] Registered Nurse 09/09/25 documented as of this encounter Additional Source Comments The information contained in this document represents components of the legal health record. It is not the complete legal health record.[facility]
--- OUTSIDE RECORDS SUMMARY | 2025-10-28 11:13 | XMS_ITS | Encounter Summary ---
Author Organization [facility] Address [address] [facility] [address] [place] [address] Phone Care Team Providers Care Dust Brush Assembler Name Role Phone Jeremías Knox MD Primary Care Provid er Jeremías Knox MD Primary Care Provid er Angel Doty MBBS Unavailable [phone] Kaylene Gutierres RN Unavailable [phone] Encounter Details Date Type Department Care Team (Latest Contact Info) Description 09/27/2017 Transcribe Orders [facility] 30 [place], [place] [phone] Jeremías Knox MD [address] [phone] Deep phlebothrombosis, antepartum, with delivery [...] documented as of this encounter Care Teams Dust Brush Assembler Relationship Specialty Start Date End Date Jeremías Knox MD [address] [place] [phone] PCP - General Pediatrics 08/29/17 05/08/22 Jeremías Knox MD [address] [place] [phone] PCP - General Pediatrics 05/09/22 Angel Doty MBBS [address] [place] [phone] [email or web address] [email or web address] Medical Oncology 02/27/24 Kaylene Gutierres, RN [address] [place] [address] [email or web address] Registered Nurse 09/09/25 documented as of this encounter Additional Source Comments The information contained in this document represents components of the legal health record. It is not the complete legal health record.[facility]
--- OUTSIDE RECORDS SUMMARY | 2025-10-28 11:13 | XMS_ITS | Encounter Summary ---
Author Organization [facility] Address [address] [employer] [facility] [address] [place] [address] Phone Care Team Providers Care Sales Representative Door To Door Name Role Phone Jeremías Knox MD Primary Care Provid er Angel Doty MBBS Unavailable [phone] Kaylene Gutierres RN Unavailable [phone] Reason for Referral * MRI/CAT Scan - Closed Specialty Diagnoses / Procedures Referred By Contac t Referred To Contact Radiology Diagnoses Benign neoplasm of cerebral meninges Procedures MRI Brain CHG MRI BRAIN COMBO System, Provider Not In, [facility] [address] [address] Referral ID Status Reason Start Date Expiration Date Visits Re quested Visits Authorized [id number] Closed 08/20/2024 10/18/2024 1 1 Encounter Details Date Type Department Care Team (Late st Contact Info) Description 08/20/2024 Transcribe Orders Virtual Department 30 [place] [address] System, Provider Not In, [facility] [address] [address] Benign neoplasm of cerebral meninges (Primary Dx) [...] clinician's provided indication for this examination in [facility]: Outside Radiology Order; benign cerebral meninges TECHNIQUE: [...] clinician's provided indication for this examination in [facility]:Outside Radiology Order; benign cerebral meninges TECHNIQUE: MRI [...] meninges documented in this encounter Care Teams Sales Representative Door To Door Relationship Specialty Start Date End Date Jeremías Knox MD [address] [phone] PCP - General Pediatrics 05/09/22 Angel Doty MBBS [address] [place] [phone] [email or web address] Medical Oncology 02/27/24 Kaylene Gutierres, RN [address] [place] [address] Registered Nurse 09/09/25 documented as of this encounter Additional Source Comments The information contained in this document represents components of the legal health record. It is not the complete legal health record.[facility]
--- OUTSIDE RECORDS SUMMARY | 2025-10-28 11:13 | XMS_ITS | Encounter Summary ---
Author Organization [facility] Address [address] [employer] [facility] [address] [place] [address] Phone Care Team Providers Care Dynamics Ax Solution Architect Name Role Phone Jeremías Knox MD Primary Care Provid er Angel Doty MBBS Unavailable [phone] Kaylene Gutierres RN Unavailable [phone] Encounter Details Date Type Department Care Team (Late st Contact Info) Description 10/26/2025 Telephone [facility] [address] [place] [address] [phone] Kaylene Gutierres RN 30 [place] [address] Social History Tobacco Use Types Packs/Day Years [...] Progress Notes * Kaylene Gutierres RN - 10/26/2025 1:57 PM EST Phone call to Rusty reminding him he is due for INR testing. He could not get out today because of the icy roads. He has appointment in the area on Sunday and will go to the lab then. 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 Long-term (current) use of anticoagulants documented in this encounter Care Teams Dynamics Ax Solution Architect Relationship Specialty Start Date End Date Jeremías Knox MD [address] [place] [phone] PCP - General Pediatrics 05/09/22 Angel Doty MBBS [address] [place] [phone] [email or web address] Medical Oncology 02/27/24 Kaylene Gutierres RN 30 [place] [address] Registered Nurse 09/09/25 documented as of this encounter Additional Source Comments The information contained in this document represents components of the legal health record. It is not the complete legal health record.[facility]
--- OUTSIDE RECORDS SUMMARY | 2025-10-28 11:13 | XMS_ITS | Encounter Summary ---
Author Organization [facility] Address [address] [facility] [address] [place] [address] Phone Care Team Providers Care Stable Helper Name Role Phone Jeremías Knox MD Primary Care Provid er Angel Doty MBBS Unavailable [phone] Kaylene Gutierres RN Unavailable [phone] Encounter Details Date Type Department Care Team (Late st Contact Info) Description 10/07/2025 Orders Only [facility] [address] [place] [address] [place] [address] Kaylene Gutierres, RN 30 [place] [address] [email or web address] Social History Tobacco Use Types Packs/Day Years [...] on filedocumented in this encounter Care Teams Stable Helper Relationship Specialty Start Date End Date Jeremías Knox MD [address] [place] [phone] PCP - General Pediatrics 05/09/22 Angel Doty MBBS [address] [place] [phone] [email or web address] Medical Oncology 02/27/24 Kaylene Gutierres RN 30 [place] [address] Registered Nurse 09/09/25 documented as of this encounter Additional Source Comments The information contained in this document represents components of the legal health record. It is not the complete legal health record.[facility]
--- OUTSIDE RECORDS SUMMARY | 2025-10-28 11:13 | XMS_ITS | Encounter Summary ---
Author Organization [facility] Address [address] [facility] [address] [place] [address] Phone Care Team Providers Care Painter Apprentice Name Role Phone Jeremías Knox MD Primary Care Provid er Jeremías Knox MD Primary Care Provid er Angel Doty MBBS Unavailable [phone] Kaylene Gutierres RN Unavailable [phone] Encounter Details Date Type Department Care Team (Late st Contact Info) Description 12/29/2021 Procedure Pass [facility], Ct Scan - [address] [address] Social History Tobacco Use Types Packs/Day Years [...] filedocumented in this encounter Care Teams Painter Apprentice Relationship Specialty Start Date End Date Jeremías Knox MD 35 [facility] [address] [place] [phone] PCP - General Pediatrics 08/29/17 05/08/22 Jeremías Knox MD [address] [phone] PCP - General Pediatrics 05/09/22 Angel Doty MBBS [address] [phone] [email or web address] [email or web address] Medical Oncology 02/27/24 Kaylene Gutierres, RN 30 [place] [address] [email or web address] Registered Nurse 09/09/25 documented as of this encounter Additional Source Comments The information contained in this document represents components of the legal health record. It is not the complete legal health record.[facility]
--- OUTSIDE RECORDS SUMMARY | 2025-10-28 11:13 | XMS_ITS | Encounter Summary ---
Author Organization [facility] Address [address] [facility] [address] [place] [address] Phone Care Team Providers Care Military Personnel Specialist Name Role Phone Jeremías Knox MD Primary Care Provid er Jeremías Knox MD Primary Care Provid er Angel Doty MBBS Unavailable [phone] Kaylene Gutierres RN Unavailable [phone] Reason for Referral * MRI/CAT Scan - Closed Specialty Diagnoses / Procedures Referred By Emeka ramesh Referred To Contact Radiology Diagnoses Benign neoplasm of cerebral meninges Procedures MRI Brain CHG MRI BRAIN CHG MRI BRAIN COMBO Jeremías Knox MD Phone: tel: fax: Referral ID Status Reason Start Date Expiration Date Visits Re quested Visits Authorized [id number] Closed 05/03/2022 07/02/2022 1 1 Encounter Details Date Type Department Care Team (Latest Contact Info) Description 05/03/2022 Transcribe Orders Virtual Department 30 [place] [address] Jeremías Knox MD [address] [phone] Benign neoplasm of cerebral meninges [...] meninges documented in this encounter Care Teams Military Personnel Specialist Relationship Specialty Start Date End Date Jeremías Knox MD [address] [place] [phone] PCP - General Pediatrics 08/29/17 05/08/22 Jeremías Knox MD [address] [phone] PCP - General Pediatrics 05/09/22 Angel Doty MBBS [address] [phone] [email or web address] Medical Oncology 02/27/24 Kaylene Gutierres, RN [address] [place] [address] [email or web address] Registered Nurse 09/09/25 documented as of this encounter Additional Source Comments The information contained in this document represents components of the legal health record. It is not the complete legal health record.[facility]
--- OUTSIDE RECORDS SUMMARY | 2025-10-28 11:13 | XMS_ITS | Encounter Summary ---
Author Organization [facility] Address [address] [employer] [facility] [address] [place] [address] Phone Care Team Providers Care Finance Analyst Name Role Phone Jeremías Knox MD Primary Care Provid er Angel Doty MBBS Unavailable [phone] Kaylene Gutierres RN Unavailable [phone] Encounter Details Date Type Department Care Team (Late st Contact Info) Description 07/12/2023 Procedure Pass [facility], Ct Scan - [facility] 30 [place] [address] Social History Tobacco Use Types Packs/Day Years [...] on filedocumented in this encounter Care Teams Finance Analyst Relationship Specialty Start Date End Date Jeremías Knox MD [address] [place] [phone] PCP - General Pediatrics 05/09/22 Angel Doty MBBS [address] [place] [phone] [email or web address] Medical Oncology 02/27/24 Kaylene Gutierres, RN [address] [place] [address] Registered Nurse 09/09/25 documented as of this encounter Additional Source Comments The information contained in this document represents components of the legal health record. It is not the complete legal health record.[facility]
--- OUTSIDE RECORDS SUMMARY | 2025-10-28 11:13 | XMS_ITS | Encounter Summary ---
Author Organization [facility] Address [address] [facility] [address] [place] [address] Phone Care Team Providers Care Client Service Professional Name Role Phone Jeremías Knox MD Primary Care Provid er Angel Doty MBBS Unavailable [phone] Kaylene Gutierres RN Unavailable [phone] Encounter Details Date Type Department Care Team (Latest Contact Info) Description 06/13/2023 Transcribe Orders Virtual Department 30 [place] [address] Jeremías Knox MD 35 [facility] [address] [place] [phone] Benign neoplasm of cerebral meninges (Primary [...] Primary documented in this encounter Care Teams Client Service Professional Relationship Specialty Start Date End Date Jeremías Knox MD [address] [phone] PCP - General Pediatrics 05/09/22 Angel Doty MBBS [address] [phone] [email or web address] Medical Oncology 02/27/24 Kaylene Gutierres, RN [address] [place] [phone] [email or web address] Registered Nurse 09/09/25 documented as of this encounter Additional Source Comments The information contained in this document represents components of the legal health record. It is not the complete legal health record.[facility]
--- OUTSIDE RECORDS SUMMARY | 2025-10-28 11:13 | XMS_ITS | Encounter Summary ---
Author Organization [facility] Address [address] [employer] [facility] [address] [place] [address] Phone Care Team Providers Care Manufacturing Business Analyst Name Role Phone Jeremías Knox MD Primary Care Provid er Angel Doty MBBS Unavailable [phone] Kaylene Gutierres RN Unavailable [phone] Encounter Details Date Type Department Care Team (Late st Contact Info) Description 07/12/2023 Procedure Pass [facility], Ct Scan - [facility] 30 [place] [address] Social History Tobacco Use Types Packs/Day Years [...] on filedocumented in this encounter Care Teams Manufacturing Business Analyst Relationship Specialty Start Date End Date Jeremías Knox MD [address] [place] [phone] PCP - General Pediatrics 05/09/22 Angel Doty MBBS [address] [place] [phone] [email or web address] Medical Oncology 02/27/24 Kaylene Gutierres, RN [address] [place] [address] Registered Nurse 09/09/25 documented as of this encounter Additional Source Comments The information contained in this document represents components of the legal health record. It is not the complete legal health record.[facility]
--- OUTSIDE RECORDS SUMMARY | 2025-10-28 11:13 | XMS_ITS | Encounter Summary ---
Author Organization [facility] Address [address] [facility] [address] [place] [address] Phone Care Team Providers Care Plant Guide Name Role Phone Jeremías Knox MD Primary Care Provid er Jeremías Knox MD Primary Care Provid er Angel Doty MBBS Unavailable [phone] Kaylene Gutierres RN Unavailable [phone] Reason for Referral * Consultation (Elective) - Closed Specialty Diagnoses / Procedures Referred By Contreji t Referred To Contact Diagnoses Deep vein thrombosis (DVT) of non-extremity vein, unspecified chronicity Jeremías Knox MD Phone: tel: fax: [facility] 30 [place] [address] Phone: tel: Referral ID Status Reason Start Date Expiration Date Visits Re quested Visits Authorized [id number] Closed 04/29/2021 04/29/2022 1 1 Encounter Details Date Type Department Care Team (Latest Contact Info) Description 04/29/2021 Transcribe Orders [facility] Department 30 [place] [address] Jeremías Knox MD [address] [phone] Deep vein thrombosis (DVT) of [...] Order Schedule Ambulatory referral to [facility] Anticoagulation Clinic Outpatient Referral Routine Deep vein thrombosis (DVT) of non-extremity vein, unspecified chronicity Ordered: 04/29/2021 documented as of this encounter Visit Diagnoses Diagnosis Deep vein thrombosis (DVT) of non-extremity vein, unspecified chronicity- Primary documented in this encounter Care Teams Plant Guide Relationship Specialty Start Date End Date Jeremías Knox MD [address] [place] [phone] PCP - General Pediatrics 08/29/17 05/08/22 Jeremías Knox MD [address] [place] [phone] PCP - General Pediatrics 05/09/22 Angel Doty MBBS [address] [place] [phone] [email or web address] Medical Oncology 02/27/24 Kaylene Gutierres, RN 30 [place] [address] Registered Nurse 09/09/25 documented as of this encounter Additional Source Comments The information contained in this document represents components of the legal health record. It is not the complete legal health record.[facility]
--- OUTSIDE RECORDS SUMMARY | 2025-10-28 11:13 | XMS_ITS | Encounter Summary ---
Author Organization [facility] Address [address] [facility] [address] [place] [address] Phone Care Team Providers Care Contact Lens Assistant Name Role Phone Jeremías Knox MD Primary Care Provid er Jeremías Knox MD Primary Care Provid er Angel Doty MBBS Unavailable [phone] Kaylene Gutierres RN Unavailable [phone] Encounter Details Date Type Department Care Team (Latest Contact Info) Description 12/27/2017 Transcribe Orders [facility] Phleb Main 30 [place] [address] Jeremías Knox MD [address] [phone] Essential hypertension, benign (Primary Dx) [...] EST) PSA 1.17 0 - 4.00 ng/mL [facility] Blood 12/27/2017 9:10 AM EST 12/27/2017 9:16 AM EST Jeremías Knox MD LAB BLOOD BKR ORDERA BLES Final Result Performing Organization Address [facility] Co de Phone Number [address] [address] * (ABNORMAL) CBC (12/27/2017 9:05 AM EST) WBC 4.12 3.40 - 11.20 K/uL [facility] RBC 5.72(H) 4.50 - 5.50 M/uL [facility] HGB 18.0(H) 13.0 - 17.0 g/dL [facility] HCT 51.8(H) 40.0 - 51.0 % [facility] PLT 171 130 - 400 K/uL [facility] MCV 90.6 79.0 - 98.0 fL [facility] MCH 31.5 27.0 - 34.8 pg [facility] MCHC 34.7 31.5 - 36.0 g/dL [facility] RDW 12.6 10.8 - 14.6 % [facility] MPV 9.7 9.4 - 12.4 fl [facility] NRBC 0.00 /100 WBCs [facility] ABSOLUTE NRBC 0.00 K/uL [facility] Blood 12/27/2017 9:05 AM EST 12/27/2017 9:17 AM EST Jeremías Knox MD LAB BLOOD BKR ORDERA BLES Final Result [address] [address] * (ABNORMAL) Lipid panel (12/27/2017 9:05 AM EST) HDL 53 mg/dL [facility] Comment: Interpretation: Risk Level Males Decreased >45 mg/dL Average 40-45 mg/dL Increased <40 mg/dL CHOLESTEROL 287(H) 0 - 240 mg/dL [facility] TRIGLYCERIDES 165(H) 30 - 160 mg/dL [facility] LDL 201(H) 50 - 129 mg/dL [facility] Comment: LDL levels in terms of risk for coronary heart disease: <100 mg/dL: Optimal 100-129 mg/dL: Near or above optimal 130-159 mg/dL: Borderline high 160-189 mg/dL: High >190 mg/dL: Very High CARDIAC RISK RATIO 5.4(H) 3.4 - 5.0 C [facility] Blood 12/27/2017 9:05 AM EST 12/27/2017 9:17 AM EST Jeremías Knox MD LAB BLOOD BKR ORDERA BLES Final Result Performing Organization Address City/[facility]/ZIP Co de Phone Number [address] [address] * (ABNORMAL) Basic metabolic panel (12/27/2017 9:05 AM EST) SODIUM 136 133 - 146 mmol/L [facility] CHLORIDE 96 96 - 108 mmol/L [facility] POTASSIUM 4.1 3.3 - 5.1 mmol/L [facility] CO2 28 21 - 35 mmol/L [facility] BUN 26(H) 6 - 19 mg/dL [facility] CREATININE 0.90 0.5 - 1.5 mg/dL [facility] GLUCOSE 93 70 - 99 mg/dL [facility] CALCIUM 9.6 8.4 - 10.3 mg/dL [facility] EGFR >60 >60 mL/min/1.7 3m2 [facility] Comment:Abnormal if <60. If patient is -Australian, multiply the result by 1.21. ANION GAP 16 10 - 20 mmol/L [facility] Blood 12/27/2017 9:05 AM EST 12/27/2017 9:17 AM EST Jeremías Knox MD LAB BLOOD BKR ORDERA BLES Final Result Performing Organization Address City/[facility]/ZIP Co de Phone Number [address] [address] documented in this encounter Visit Diagnoses Diagnosis Essential hypertension, benign- Primary documented in this encounter Additional Health Concerns Infection Onset Date Last Indicated Resolved Time CoV-Exposed Comment:Recent close contact 05/27/2020 05/27/2020 06/10/2020 1:27 AM EDT documented as of this encounter Care Teams Contact Lens Assistant Relationship Specialty Start Date End Date Jeremías Knox MD [address] [phone] PCP - General Pediatrics 08/29/17 05/08/22 Jeremías Knox MD [address] [phone] PCP - General Pediatrics 05/09/22 Angel Doty MBBS [address] [place] [phone] [email or web address] Medical Oncology 02/27/24 Kaylene Gutierres, RN 30 [place] [address] Registered Nurse 09/09/25 documented as of this encounter Additional Source Comments The information contained in this document represents components of the legal health record. It is not the complete legal health record.[facility]
--- OUTSIDE RECORDS SUMMARY | 2025-10-28 11:13 | XMS_ITS | Clinical Summary ---
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 [address] [place] [address] Kaylene Gutierres, RN 10/12/2025 Telephone [facility] [address] [place] [address] Mariajose Irizarry, ASSISTANT FOREMAN 10/07/2025 Orders Only [facility] [address] [place] [address] [place] [address] Kaylene Gutierres, RN 10/07/2025 Telephone [facility] [address] [place] [address] [place] [address] Kaylene Gutierres, RN INR Check 09/16/[address] [facility] [address] [place] [address] [place] [address] Kaylene Gutierres, RN INR Check 09/14/2025 Telephone [facility] [address] [place] [address] Kaylene Gutierres RN 09/09/[address] [facility] [address] [place] [address] [place] [address] Kaylene Gutierres RN 09/03/2025 Telephone [facility] at [address] [address] Angel Doty, BELKISBS surgery question 08/28/2025 Telephone [facility] [address] [place] [address] Kaylene Gutierres RN Interruption In Anticoagulant Therapy 08/28/2025 Documentation [facility] [address] [address] Kaylene Gutierres RN 08/27/2025 10:11 AM EDT - 08/27/2025 11:59 PM EDT Hospital Encounter [facility] Main [address] [place] [address] Gallito Razo MD Discharge Disposition: Home or Self Care 08/27/2025 Documentation [facility] [address] [address] Kaylene Gutierres RN INR Check 08/27/2025 Transcribe Orders [facility] Phleb Main [address] [place] [address] Gallito Razo MD Perforated diverticulum of large intestine (Primary Dx) 08/25/2025 Documentation [facility] [address] [address] Kaylene Gutierres RN 08/25/2025 Transcribe Orders [facility] Specimen Processing [address] [place] [address] Gallito Razo MD Diverticulitis of large intestine with perforation and abscess without bleeding (Primary Dx) 08/24/2025 2:47 PM EDT - 08/24/2025 11:59 PM EDT Hospital Encounter [facility]le[facility] Main [address] [place] [address] Gallito Razo MD Discharge Disposition: Home or Self Care 08/24/2025 Telephone [facility] [address] [address] Kaylene Gutierres RN INR Check; Supratherapeutic INR Greater Or Equal To 5 08/20/2025 11:53 AM EDT - 08/20/2025 11:59 PM EDT Hospital Encounter [facility] Phleb Main [address] [place] [address] Jeremías Knox MD Discharge Disposition: Home or Self Care 08/20/2025 Telephone [facility] [address] [place] [address] Kaylene Gutierres, RN INR Check (/) 08/18/2025 Documentation [facility] [address] [place] [address] Kaylene Gutierres, RN from Last 3 Months [...] venous thrombosis) APS (antiphospholipid syndrome) Chronic anticoagulation LIPID PANEL Routine 09/15/2024 7:36 AM EST Asthmatic bronchitis without complication, unspecified asthma severity, unspecified whether persistent Mixed hyperlipidemia ENDOSCOPY, COLON 03/02/2022 2:18 PM EDT from Last 3 Months or Most Recently Relevant to Health Maintenance Results * (ABNORMAL) PT-INR (10/12/2025 10:30 AM EST) Only the most recent of6 resultswithin the time period is included. PT 22.8(H) 10.0 - 13.0 sec 10/12/2025 10:58 AM EST [facility] INR 1.8(H) 0.9 - 1.1 10/12/2025 10:58 AM EST [facility] Comment:Therapeutic Range 2. 0 - 3.5 Blood (Blood) Venipuncture / Unknown 10/12/2025 10:30 AM EST 10/12/2025 10:35 AM EST us Jeremías Knox MD LAB BLOOD BKR ORDERA BLES Final Result [address] [address] * (ABNORMAL) CBC (10/07/2025 10:56 AM EST) WBC 8.37 4.00 - 11.00 K/uL 10/07/2025 11:09 AM [facility] RBC 4.45(L) 4.50 - 5.90 M/uL 10/07/2025 11:09 AM [facility] Hemoglobin 12.3(L) 13.5 - 17.5 g/dL 10/07/2025 11:09 AM [facility] Hematocrit 37.3(L) 41.0 - 53.0 % 10/07/2025 11:09 AM [facility] MCV 83.8 80.0 - 100.0 fL 10/07/2025 11:09 AM [facility] MCH 27.6 27.0 - 31.0 pg 10/07/2025 11:09 AM [facility] MCHC 33.0 32.0 - 36.0 g/dL 10/07/2025 11:09 AM [facility] PLT 123(L) 150 - 450 K/uL 10/07/2025 11:09 AM [facility] MPV 10.0 8.4 - 12.0 fL 10/07/2025 11:09 AM [facility] RDW-CV 15.7(H) 11.5 - 14.5 % 10/07/2025 11:09 AM [facility] Absolute NRBC 0.00 <=0.00 K cells/uL 10/07/2025 11:09 AM [facility] NRBC 0.0 <=0.0 /100 WBCs 10/07/2025 11:09 AM [facility] Blood (Blood) Venipuncture / Unknown 10/07/2025 10:56 AM EST 10/07/2025 11:05 AM EST us Gallito Razo MD LAB BLOOD BKR ORDERABLES Mandy pham Result [facility] [address] [place] [address] * (ABNORMAL) Basic Metabolic Panel (BMP) (09/16/2025 9:07 AM EST) Only the most recent of2 resultswithin the time period is included. Sodium 134(L) 136 - 145 mmol/L 09/16/2025 9:52 AM [facility] Potassium 4.5 3.4 - 5.1 mmol/L 09/16/2025 9:52 AM [facility] Chloride 99 98 - 107 mmol/L 09/16/2025 9:52 AM [facility] CO2 24 20 - 31 mmol/L 09/16/2025 9:52 AM [facility] Anion Gap 11 3 - 17 mmol/L 09/16/2025 9:52 AM [facility] BUN 32(H) 6 - 23 mg/dL 09/16/2025 9:52 AM [facility] Creatinine 1.80(H) 0.60 - 1.30 mg/dL 09/16/2025 9:52 AM [facility] eGFR 42(L) >59 mL/min/1.7 3m2 09/16/2025 9:52 AM [facility] Comment:Estimated glomerular filtration rate calculated using the CKD-EPI refit equation. Glucose 117(H) 70 - 99 mg/dL 09/16/2025 9:52 AM [facility] Calcium 8.4(L) 8.5 - 10.5 mg/dL 09/16/2025 9:52 AM [facility] Blood (Blood) Venipuncture / Unknown 09/16/2025 9:07 AM EST 09/16/2025 9:12 AM EST us Gallito Razo MD LAB BLOOD BKR ORDERABLES Mandy pahm Result [address] [address] * (ABNORMAL) CBC and differential (08/27/2025 10:37 AM EDT) Only the most recent of2 resultswithin the time period is included. WBC 14.65(H) 4.00 - 11.00 K/uL [facility] RBC 4.35(L) 4.50 - 5.90 M/uL [facility] HGB 12.9(L) 13.5 - 17.5 g/dL [facility] HCT 38.2(L) 41.0 - 53.0 % [facility] PLT 129(L) 150 - 450 K/uL [facility] MCV 87.8 80.0 - 100.0 fL [facility] MCH 29.7 27.0 - 31.0 pg [facility] MCHC 33.8 32.0 - 36.0 g/dL [facility] RDW 14.2 11.5 - 14.5 % [facility] MPV 8.6 8.4 - 12.0 fL [facility] NRBC 0.00 0.00 /100 WBCs [facility] ABSOLUTE NRBC 0.00 0.00 K/uL [facility] DIFF METHOD Manual [facility] TOTAL CELLS COUNTED 100 [facility] NEUTS 76.0 48.0 - 76.0 % [facility] BANDS 1.0 0 - 10 % [facility] LYMPHS 13.0(L) 18.0 - 41.0 % [facility] MONOS 6.0 4.0 - 11.0 % [facility] EOS 1.0 0.0 - 5.0 % [facility] BASOS 1.0 0.0 - 1.5 % [facility] MYELOS 1.0(H) 0 % [facility] METAS 1.0(H) 0 % [facility] ABSOLUTE NEUTS 11.28(H) 1.92 - 7.60 K/uL [facility] ABSOLUTE LYMPHS 1.90 0.72 - 4.10 K/uL [facility] ABSOLUTE MONOS 0.88 0.16 - 1.10 K/uL [facility] ABSOLUTE EOS 0.15 0.00 - 0.50 K/uL [facility] ABSOLUTE BASOS 0.15 0.00 - 0.15 K/uL [facility] ABSOLUTE MYELOS 0.15 K/uL [facility] ABSOLUTE METAS 0.15 K/uL [facility] Blood 08/27/2025 10:3 7 AM EDT 08/27/2025 10:44 AM EDT us Gallito Razo MD LAB BLOOD BKR ORDERABLES Mandy l Result [address] [address] * (ABNORMAL) Lipid panel (09/15/2024 7:36 AM EST) HDL 45 mg/dL [facility] Comment: Interpretation <40 mg/dL: Low HDL cholesterol (major risk factor for CHD) Greater than or equal to 60 mg/dL: High HDL cholesterol ( negative risk factor for CHD) HDL - cholesterol is affected by a number of factors, e.g. smoking, excerise, hormones, sex and age. CHOLESTEROL 252(H) 0 - 240 mg/dL [facility] TRIGLYCERIDES 260(H) 30 - 160 mg/dL [facility] LDL 155(H) 50 - 129 mg/dL [facility] Comment: LDL levels in terms of risk for coronary heart disease: <100 mg/dL: Optimal 100-129 mg/dL: Near or above optimal 130-159 mg/dL: Borderline high 160-189 mg/dL: High >190 mg/dL: Very High CARDIAC RISK RATIO 5.6(H) 3.4 - 5.0 C [facility] Blood 09/15/2024 7:36 AM EST 09/15/2024 7:40 AM EST us Jeremías Knox MD LAB BLOOD BKR ORDERA BLES Final Result [address] [address] * ENDOSCOPY, COLON (03/02/2022 2:18 PM EDT) Narrative Transcriptions Kari Argueta MD - 03/02/2022 2:18 PM EDT Patient Name: Alejandro Correa Attending MD:: KARI ARGUETA MD Procedure Date: 03/02/2022 2:18 PM Date of : 1960 Age: 61 Admit Type: Outpatient Gender: Male Room: [facility] 05 Referring MD: Mick Knox Exam Type: [...] monitored continuously. The Olympus adult variable colonoscope [id number] #3 was introduced through the anus and [...] 2:18 PM Procedure Code(s): --- Professional --- 47046, Colonoscopy, flexible; with biopsy, single or multiple --- Technical --- 26617, Colonoscopy, flexible; with biopsy, single or multiple Diagnosis Code(s): --- Professional --- R19.7, Diarrhea, unspecified R63.4, Abnormal weight loss K57.30, Diverticulosis of large intestine without perforation or abscess without bleeding --- Technical --- R19.7, Diarrhea, unspecified R63.4, Abnormal weight loss K57.30, Diverticulosis of large intestine without perforation or abscess without bleeding CPT copyright 2020 [employer]. All rights reserved. The codes documented in this report are preliminary and upon draw press operator reviewmay be revised to meet current compliance requirements. Procedure Date: 03/02/2022 2:18:[address] [place] [address] Mick Knox MD GI PROCEDURE ORDERAB LES Final Result from Last 3 Months or Most Recently Relevant to Health Maintenance Insurance Advance Directives For more information, please contact: [phone] (9AM - 5PM [place], Sunday-Sunday) * Full Code (Latest Code Status on File) Date Activated Date Inactivated Comments 07/12/2023 7:52 PM Question Answer Comments Code Status Confirmed With: Patient Care Teams Night Worker Relationship Specialty Start Date End Date Jeremías Knox MD [address] [phone] PCP - General Pediatrics 05/09/22 Angel Doty MBBS [address] [phone] [email or web address] Medical Oncology 02/27/24 Kaylene Gutierres, RN [address] [place] [address] [email or web address] Registered Nurse 09/09/25 Additional Source Comments The information contained in this document represents components of the legal health record. It is not the complete legal health record.[facility]
--- OUTSIDE RECORDS SUMMARY | 2025-10-28 11:13 | XMS_ITS | Encounter Summary ---
Author Organization [facility] Address [address] [facility] [address] [place] [address] Phone Care Team Providers Care Editor Trade Journal Name Role Phone Jeremías Knox MD Primary Care Provid er Angel Doty MBBS Unavailable [phone] Kaylene Gutierres RN Unavailable [phone] Encounter Details Date Type Department Care Team (Late st Contact Info) Description 07/12/2023 Procedure Pass [facility], [address] [address] Social History Tobacco Use Types Packs/Day Years [...] on filedocumented in this encounter Care Teams Editor Trade Journal Relationship Specialty Start Date End Date Jeremías Knox MD [address] [place] [phone] PCP - General Pediatrics 05/09/22 Angel Doty MBBS [address] [place] [phone] [email or web address] Medical Oncology 02/27/24 Kaylene Gutierres, RN [address] [place] [address] Registered Nurse 09/09/25 documented as of this encounter Additional Source Comments The information contained in this document represents components of the legal health record. It is not the complete legal health record.[facility]
--- OUTSIDE RECORDS SUMMARY | 2025-10-28 11:13 | XMS_ITS | Encounter Summary ---
Author Organization [facility] Address 399 [facility] [address] [place] [address] Phone Care Team Providers Care Well Puller Name Role Phone Jeremías Knox MD Primary Care Provid er Jeremías Knox MD Primary Care Provid er Angel Doty MBBS Unavailable [phone] Kaylene Gutierres RN Unavailable [phone] Encounter Details Date Type Department Care Team (Late st Contact Info) Description 05/03/2022 Procedure Pass [facility], [address] [address] Social History Tobacco Use Types Packs/Day Years [...] on filedocumented in this encounter Care Teams Well Puller Relationship Specialty Start Date End Date Jeremías Knox MD 35 [facility] [address] [place] [phone] PCP - General Pediatrics 11/1/17 7/11/22 Jeremías Knox MD [address] [phone] PCP - General Pediatrics 05/09/22 Angel Doty MBBS [address] [phone] [email or web address] Medical Oncology 02/27/24 Kaylene Gutierres, RN [address] [place] [address] [email or web address] Registered Nurse 09/09/25 documented as of this encounter Additional Source Comments The information contained in this document represents components of the legal health record. It is not the complete legal health record.[facility]
--- OUTSIDE RECORDS SUMMARY | 2025-10-28 11:13 | XMS_ITS | Encounter Summary ---
Author Organization [facility] Address 399 [facility] [address] [place] [address] Phone Care Team Providers Care Superintendent Division Name Role Phone Jeremías Knox MD Primary Care Provid er Jeremías Knox MD Primary Care Provid er Angel Doty MBBS Unavailable [phone] Kaylene Gutierres RN Unavailable [phone] Encounter Details Date Type Department Care Team (Latest Contact Info) Description 08/29/2017 Transcribe Orders [facility] Phleb Main 30 [place], [place] [phone] Jeremías Knox MD [address] [phone] Deep phlebothrombosis, antepartum, with delivery [...] EDT) PT 21.9(H) 10.2 - 12.9 sec [facility] INR 1.9(H) 0.9 - 1.1 [facility] Comment:Therapeutic range fo r oral Vitamin K antagonists: 2.0-3.5 Blood 08/29/2017 10:5 8 AM EDT 08/29/2017 3:58 PM EDT us Jeremías Knox MD LAB BLOOD BKR ORDERA BLES Edited Result - Final [address] [address] documented in this encounter Visit Diagnoses Diagnosis Deep phlebothrombosis, antepartum, with delivery- Primary documented in this encounter Additional Health Concerns Infection Onset Date Last Indicated Resolved Time CoV-Exposed Comment:Recent close contact 05/27/2020 05/27/2020 06/10/2020 1:27 AM EDT documented as of this encounter Care Teams Superintendent Division Relationship Specialty Start Date End Date Jeremías Knox MD [address] [place] [phone] PCP - General Pediatrics 08/29/17 05/08/22 Jeremías Knox MD [address] [place] [phone] PCP - General Pediatrics 05/09/22 Angel Doty MBBS [address] [place] [phone] [email or web address] Medical Oncology 02/27/24 Kaylene Gutierres RN [address] [place] [address] Registered Nurse 09/09/25 documented as of this encounter Additional Source Comments The information contained in this document represents components of the legal health record. It is not the complete legal health record.[facility]
--- OUTSIDE RECORDS SUMMARY | 2025-10-28 11:13 | XMS_ITS | Encounter Summary ---
Author Organization [facility] Address [address] [facility] [facility] [address] [place] [address] Phone Care Team Providers Care Quality Compliance Coordinator Name Role Phone Jeremías Knox MD Primary Care Provid er Angel Doty MBBS Unavailable [phone] Kaylene Gutierres RN Unavailable [phone] Encounter Details Date Type Department Care Team (Late st Contact Info) Description 08/20/2024 Procedure Pass [facility], [address] [address] Social History Tobacco Use Types Packs/Day Years [...] on filedocumented in this encounter Care Teams Quality Compliance Coordinator Relationship Specialty Start Date End Date Jeremías Knox MD [address] [place] [phone] PCP - General Pediatrics 05/09/22 Angel Doty MBBS [address] [place] [phone] [email or web address] Medical Oncology 02/27/24 Kaylene Gutierres, RN [address] [place] [phone] Registered Nurse 09/09/25 documented as of this encounter Additional Source Comments The information contained in this document represents components of the legal health record. It is not the complete legal health record.[facility]
--- OUTSIDE RECORDS SUMMARY | 2025-10-28 11:13 | XMS_ITS | Encounter Summary ---
Author Organization [facility] Address [address] [facility] [address] [place] [phone] Phone Care Team Providers Care Erp Implementation Consultant Name Role Phone Jeremías Knox MD Primary Care Provid er Angel Doty MBBS Unavailable [phone] Kaylene Gutierres RN Unavailable [phone] Encounter Details Date Type Department Care Team (Late st Contact Info) Description 10/26/2025 Documentation [facility] [address] [place] [address] [phone] Kaylene Gutierres, RN [address] [place] [address] Social History Tobacco Use Types Packs/Day Years [...] Notes * Kaylene Gutierres RN - 10/26/2025 1:56 PM EST Opened in error. documented in this encounter Plan of Treatment Not on file documented as of this encounter Visit Diagnoses Not on filedocumented in this encounter Care Teams Erp Implementation Consultant Relationship Specialty Start Date End Date Jeremías Knox MD [address] [place] [address] [phone] PCP - General Pediatrics 05/09/22 Angel Doty MBBS [address] [place] [address] [phone] [email or web address] Medical Oncology 02/27/24 Kaylene Gutierres, RN [address] [place] [address] Registered Nurse 09/09/25 documented as of this encounter Additional Source Comments The information contained in this document represents components of the legal health record. It is not the complete legal health record.[facility]
== END 2025-10-28 10:27 | disposition home or self-care (01) ==
LOC: HO.HGS 10:08
PROVIDERS: PCP Internal Medicine
DX: Z90.49 Acquired absence of other specified parts of digestive tract (principal)
CPT/HCPCS: 99024